=== PATIENT | male | born 1960 | race Two or more races ===

== ENCOUNTER 2017-12-23 12:58 | Inpatient (IN) | payer OTHER ==
--- NOTE | 2017-12-23 14:04 | PDOC ---
Attending Attestation - HPI HPI: 12/23/17 14:06 The patient is a 57-year-old male, with a past medical history of NIDDM, who presents to the ED with a week and a half of necrotic left great toe. The patient reports using a topical cream called "Renuka" that he bought at [employer]. On exam, patient states that his left leg is also swollen and he is experiencing pain with urination and pain over the kidneys. The patient denies any fever or chills. He denies having any other symptoms. Allergies: NKA <Beatriz Foreman - Last Filed: 12/23/17 16:31> - Resident Resident Name: Dequan Whittaker - ED Attending Attestation I have performed the following: I have examined & evaluated the patient, The case was reviewed & discussed with the resident, I agree w/resident's findings & plan, Exceptions are as noted - HPI HPI: no fever in house, no pain. also c/o dysuria, and right flank pain. no cough no cp no other complaints. 12/23/17 17:22 - Physicial Exam PE: 12/23/17 17:23 awake alert lungs clear bilaterally. heart rrr nomrg. abd soft nt no cva tenderness. left leg with erythema warmth to knee. left great toe with ulcer, necrosis, small exudate. skin discolored from purple . 2+ dp/ pt pulses bilaterally. - Medical Decision Making 12/23/17 17:24 57 yo male DM with left toe infection cellulitis. plan r/o osteo, r/o sepsis. also c/o dysuria. plan xray foot, cxr labs ua cultures. will treat with broad spectrum antibiotics. admit vasc surgery consult. xray with signs of osteo, will treat inpat abx.l <Cathy Alvares - Last Filed: 12/23/17 18:47> Heart Score/ECG Review #1 General ECG Interpretation: Sinus Rhythm, Normal Rate (80), Normal Intervals, No acute ischemic changes - ECG Intrepretation Rhythm: Regular Rhythm - [place]: Normal <Cathy Alvares - Last Filed: 12/23/17 18:47> Attestations - Attestations 12/23/17 14:09 Documentation prepared by Beatriz Foreman, acting as medical instructor for Cathy Alvares MD. <Beatriz Foreman - Last Filed: 12/23/17 16:31>
--- NOTE | 2017-12-23 14:22 | PDOC ---
History of Present Illness - General Chief Complaint: Wound Stated Complaint: URINARY PROBLEM Time Seen by Provider: 12/23/17 13:21 History Source: Patient Exam Limitations: No Limitations - History of Present Illness Initial Comments: 12/23/17 14:22 The patient is a 57M with a PMH of uncontrolled diabetes who presents to the ER with complaints of L great toe wound and leg swelling. The patient states that he noted some callous on the bottom of his L great toe 1.5 weeks ago. This then worsened up to the patient's current presentation. He also states that he's noticed swelling in his lower extremity when he tried putting his pants on. He tried putting "iqra" which is an antiseptic from [place]. He also notes that his toenail has come off. He denies any fever, chills, nausea, vomiting, CP, SOB. Past History - Past Medical History Allergies/Adverse Reactions: Allergies Allergy/AdvReac Type Severity Reaction Status Date / Time No Known Allergies Allergy Verified 12/23/17 13:00 Home Medications: Ambulatory Orders Glipizide 10 mg PO BID 12/23/17 Metformin HCl [Metformin HCl ER] 1,000 mg PO BID 12/23/17 COPD: No Diabetes: Yes (NIDDM) - Suicide/Smoking/Psychosocial Hx Smoking History: Never smoked Substance Use Type: None Review of Systems - Review of Systems Able to Perform ROS?: Yes Comments:: 12/23/17 14:48 GENERAL/CONSTITUTIONAL: No fever or chills. No weakness. HEAD, EYES, EARS, NOSE AND THROAT: No change in vision. No ear pain or discharge. No sore throat. CARDIOVASCULAR: No chest pain, palpitations, or lightheadedness. RESPIRATORY: No cough, wheezing, shortness of breath, or hemoptysis. GASTROINTESTINAL: No nausea, vomiting, diarrhea, constipation, or abdominal pain. GENITOURINARY: No dysuria, frequency, hematuria, or change in urination. MUSCULOSKELETAL: No joint or muscle swelling or pain. No neck or back pain. SKIN: Positive for L great toe lesion. No rash. NEUROLOGIC: No headache, numbness, tingling, weakness, loss of consciousness, or change in strength/sensation. ENDOCRINE: No increased thirst. No abnormal weight change. HEMATOLOGIC/LYMPHATIC: No anemia, easy bleeding, or history of blood clots. ALLERGIC/IMMUNOLOGIC: No hives or skin allergy. Is the patient limited Nauruan proficient: No *Physical Exam - Vital Signs Last Vital Signs Temp Pulse Resp BP Pulse Ox 99.1 F 96 H 20 130/76 99 12/23/17 13:00 12/23/17 13:00 12/23/17 13:00 12/23/17 13:00 12/23/17 13:00 - Physical Exam Comments: 12/23/17 14:49 GENERAL: Well developed, well nourished. Awake and alert. No acute distress. HEENT: Normocephalic, atraumatic. Hearing grossly normal. Moist mucous membranes. PERRLA, EOMI. No conjunctival pallor. Sclera are non-icteric. NECK: Supple. Full ROM. CARDIOVASCULAR: Regular rate and rhythm. No murmurs, rubs, or gallops. PULMONARY: No evidence of respiratory distress. Lungs clear to auscultation bilaterally. No wheezing, rales or rhonchi. ABDOMINAL: Soft. Non-tender. Non-distended. No rebound or guarding. GENITOURINARY: R CVA tenderness. MUSCULOSKELETAL: Normal range of motion at all joints. No bony deformities or tenderness. EXTREMITIES: Purple-dye covered great toe which is edematous with avulsion of the nail and skin around the nail. No bone noted. 1-2+ pitting edema up to L knee. No cyanosis. No clubbing. SKIN: Warm and dry. Normal capillary refill. No rashes. No jaundice. NEUROLOGICAL: Alert, awake, appropriate. Cranial nerves 2-12 intact. No deficits to light touch and temperature in face, upper extremities and lower extremities. No motor deficits in the in face, upper extremities and lower extremities. Normoreflexic in the upper and lower extremities. Normal speech. PSYCHIATRIC: Cooperative. Good eye contact. Appropriate mood and affect. ED Treatment Course - LABORATORY CBC & Chemistry Diagram: 12/23/17 15:50 12/23/17 15:50 - RADIOLOGY Radiology Studies Ordered: Category Date Time Status FOOT-LEFT [RAD] Stat Radiology 12/23/17 13:53 Taken DUPLEX VASCUL US-1 LEG [US] Stat Ultrasound 12/23/17 13:55 Ordered Medical Decision Making - Medical Decision Making 12/23/17 14:51 The patient is a 57M with a PMH of uncontrolled diabetes who presents to the ER with a necrotic L great toe. Will need to clean to evaluate. Will activate septic protocol as the patient has a low grade fever, is borderline tachycardic and tachypneic. Will send wound culture as well. Pending labs/imaging. Likely will need vascular surgery consultation in an inpatient setting. 12/23/17 16:09 XR indicates osteo. Will start on IV abx (vanc/zosyn) for osteo. Will call vascular surgery and admit pt. 12/23/17 16:51 Pending call back from hospitalist. I have discussed the patient with Dr. Fish who is aware of the patient and will see him in the inpatient setting. 12/23/17 17:06 I have endorsed the patient to Dr. Yan for admission under Dr. Peters. *DC/Admit/Observation/Transfer Diagnosis at time of Disposition: Osteomyelitis Qualifiers: Osteomyelitis type: unspecified type Osteomyelitis location: foot Laterality: left Qualified Code(s): M86.9 - Osteomyelitis, unspecified - Discharge Dispostion Condition at time of disposition: Stable Decision to Admit order: Yes - Referrals - Patient Instructions - Post Discharge Activity
[2017-12-23] MEDS ORDERED: SODIUM CHLORIDE 1,000 ML IV STA (14:34)
[2017-12-23 16:02] LABS: BASO % 1.1 % (0-2.0); EOS % 0.6 % (0-4.5); HEMATOCRIT 38.9 % (35.4-49); HEMOGLOBIN 12.9 GM/dL (11.7-16.9); LYMPH % 12.1 % (8-40); MCH 28.3 pg (25.7-33.7); MCHC 33.2 g/dl (32.0-35.9); MEAN CELL VOLUME 85.3 fl (80-96); MEAN PLT VOLUME 8.1 fl (7.5-11.1); MONO % 5.2 % (3.8-10.2); PLATELET COUNT 386 K/MM3 (134-434); RBC 4.57 M/mm3 (4.00-5.60); RDW 12.7 % (11.9-15.9); WHITE BLOOD COUNT 10.8 K/mm3 (4.0-10.0)
[2017-12-23] MEDS ORDERED: PIPERACILLIN/TAZOB 3.375 GM 3.375 GM in DEXTROSE 5%-WATER - 50 ML IVPB ONE (16:08)
[2017-12-23] MEDS ORDERED: VANCOMYCIN 1,000 MG in DEXTROSE 5%-WATER - 250 ML IVPB ONE (16:08)
[2017-12-23 16:41] LABS: INR 1.05 (0.82-1.09); PROTHROMBIN TIME (PATIENT) 11.9 SEC (9.7-13.0)
[2017-12-23] MEDS ORDERED: PIPERACILLIN/TAZOB 3.375 GM 3.375 GM/50 ML BAG IVPB ONE ×2 (16:51→23:00)
[2017-12-23] MEDS ORDERED: VANCOMYCIN 1 GRAM (PRE-DOCKED) 1,000 MG/250 ML BAG IVPB ONE (16:51)
--- NOTE | 2017-12-23 18:17 | PN ---
Teaching Attending Note Name of Resident: Marti Sotomayor ATTENDING PHYSICIAN STATEMENT I saw and evaluated the patient. I reviewed the resident's note and discussed the case with the resident. I agree with the resident's findings and plan as documented. SUBJECTIVE:57yo M with PMH non compliant DM presented to the ER with non healing ulcer on his L foot 1st toe for over 1 month. states he developed a blister on the tip of his toe from his boots which he used a needle to pick off. then noted his toenail was discolored and used a blade to remove the toe nail 4 days ago. he noted that his foot began to swell with lots of drainage from the toe. it was not healing so he came to the ER. states he does not have pain. He is not complaint with his diabetic meds and just take them when his friend can give him a few. denies CP, SOB, fever, chills, N/V/C/D OBJECTIVE: Last Vital Signs Temp Pulse Resp BP Pulse Ox 99.1 F 96 H 20 130/76 99 12/23/17 13:00 12/23/17 13:00 12/23/17 13:12/23/17 13:12/23/17 13:00 General NAD CV S1 S2 RRR no murmur/rub/gallop Lungs CTA B/L No wheezing/rales/rhonchi ABdomen soft NT/ND Extremities L foot 1+ pitting edema limited to the foot. 1st digit with toenail avulsed. active liquid drainage with bubbles. lateral aspect boggy. necrosis noted at tip of toe. pulse 2+. ASSESSMENT AND PLAN: 57yo M with PMH non compliant DM presented to the ER with non healing ulcer on his L foot 1st toe for over 1 month. In the ER he was found to have OM confirmed on XR 1. L foot 1st digit OM- medicine admission. XR confirming OM. will need surgical amputation. started on Vanco/Zosyn in the ER. check ESR/CRP. consult vascular surgery, podiatry and ID. case d/w podiatry will take pt to OR tomorrow if pt agreeable to surgery. F/U cx 2. DM- not complaint. check A1c. start iss, bgm. will likely require insulin on discharge but will need to determine if patient will be able to afford medication. frame straightener consult. counselled on importance of medication and diet compliance 3. DVT ppx- lovenox 4. spoke with patient in detail with water service dispatcher. Explained current plan and need for amputation. explained risks and benefit of surgical vs medical management. pt does not have insurance which will make medical management more difficult due to high cost of 6-8 weeks of IV antibiotics. pt will consider options overnight and discuss in more detail with podiatry in the AM
--- NOTE | 2017-12-23 18:45 | HP ---
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 Pt developed a callus from his work boots under the L great toe about a month and a half ago and eventually developed a blister from it. He burst the blister with a needle and started draining fluid from the L great toe. Pt admits to cutting his nails with a nail clipper about 20 days ago. 4 days ago, Pt used a lancet to cut around the base of the toe nail leaving a gaping wound that oozes pus and blood. He applied gentian aung on his own and came in to the ED today because of the non-healing wound. He denies fevers or chills. Pt has no pain on the toe. He admits to decreased pain sensation bilaterally. He had no prior hx of intermittent claudication. Pt admits to not being compliant on metformin 100mg and glipizide 10mg because he has no PCP and gets the medications from a friend. His last blood glucose yesterday was 300mg. No urinary symptoms, no chest pain or difficulty breathing, no cough. ER course was notable for: (1) Tachycardia-96, WBC- 10.8 (2) Xray- osteomyelitis of L great toe (3) iv Vancomycin 1000mg, iv Zosyn 3.375mg Recent Travel: PAST MEDICAL HISTORY: DM PAST SURGICAL HISTORY: Denies Social History: Smoking: Denies Alcohol:Denies Drugs: Denies Family History: Allergies No Known Allergies Allergy (Verified 12/23/17 13:00) HOME MEDICATIONS: Home Medications Medication Instructions Recorded Glipizide 10 mg PO BID 12/23/17 Metformin HCl [Metformin HCl ER] 1,000 mg PO BID 12/23/17 REVIEW OF SYSTEMS CONSTITUTIONAL: Absent: fever, chills, diaphoresis, generalized weakness, malaise, loss of appetite, weight change HEENT: Absent: rhinorrhea, nasal congestion, throat pain, throat swelling, difficulty swallowing, mouth swelling, ear pain, eye pain, visual changes CARDIOVASCULAR: Absent: chest pain, syncope, palpitations, irregular heart rate, lightheadedness , peripheral edema RESPIRATORY: Absent: cough, shortness of breath, dyspnea with exertion, orthopnea, wheezing, stridor, hemoptysis GASTROINTESTINAL: Absent: abdominal pain, abdominal distension, nausea, vomiting, diarrhea, constipation, melena, hematochezia GENITOURINARY: Absent: dysuria, frequency, urgency, hesitancy, hematuria, flank pain, genital pain MUSCULOSKELETAL: Absent: myalgia, arthralgia, joint swelling, back pain, neck pain SKIN: Absent: rash, itching, pallor HEMATOLOGIC/IMMUNOLOGIC: Absent: easy bleeding, easy bruising, lymphadenopathy, frequent infections ENDOCRINE: Absent: unexplained weight gain, unexplained weight loss, heat intolerance, cold intolerance NEUROLOGIC: Absent: headache, focal weakness or paresthesias, dizziness, unsteady gait, seizure, mental status changes, bladder or bowel incontinence PSYCHIATRIC: Absent: anxiety, depression, suicidal or homicidal ideation, hallucinations. PHYSICAL EXAMINATION Vital Signs - 24 hr 12/23/17 13:00 Temperature 99.1 F Pulse Rate 96 H Respiratory 20 Rate Blood Pressure 130/76 O2 Sat by Pulse 99 Oximetry (%) GENERAL: Awake, alert, and fully oriented, in no acute distress. HEAD: Normal with no signs of trauma. EYES: Pupils equal, round and reactive to light, extraocular movements intact EARS, NOSE, THROAT: Moist mucous membranes. NECK: Normal range of motion, supple LUNGS: Breath sounds equal, clear to auscultation bilaterally. No wheezes, and no crackles. HEART: Regular rate and rhythm, normal S1 and S2 ABDOMEN: Soft, nontender, not distended, normoactive bowel sounds MUSCULOSKELETAL: Normal range of motion at all joints. Hyperpigmentation L lower foot from ankle distally. L great toe with purplish color, avulsed nail, soft, with milkable pus on palpation below nail bed. Plantar surface of L great toe- firm, non fluctuant, no crepitus and non tender L great toe. Tinea pedis between toes bilaterally. UPPER EXTREMITIES: 2+ pulses, warm, well-perfused. LOWER EXTREMITIES: 2+ equal DP pulses bilaterally, warm, intact sensation to light touch bilaterally NEUROLOGICAL: Cranial nerves II-XII intact. Normal speech. Muscle strength 5/5 globally. CBC, BMP 12/23/17 15:50 Laboratory Results - last 24 hr 12/23/17 12/23/17 12/23/17 15:50 15:50 15:50 WBC 10.8 H RBC 4.57 Hgb 12.9 Hct 38.9 MCV 85.3 MCH 28.3 MCHC 33.2 RDW 12.7 Plt Count 386 MPV 8.1 Neutrophils % 81.0 Lymphocytes % 12.1 Monocytes % 5.2 Eosinophils % 0.6 Basophils % 1.1 Nucleated RBC % 0 PT with INR 11.90 INR 1.05 Sodium Cancelled Potassium Cancelled Chloride Cancelled Carbon Dioxide Cancelled Anion Gap Cancelled BUN Cancelled Creatinine Cancelled Creat Clearance w eGFR Cancelled Random Glucose Cancelled Lactic Acid Calcium Cancelled Total Bilirubin Cancelled AST Cancelled ALT Cancelled Alkaline Phosphatase Cancelled Total Protein Cancelled Albumin Cancelled Blood Type Antibody Screen 12/23/17 12/23/17 12/23/17 15:50 15:50 16:40 WBC RBC Hgb Hct MCV MCH MCHC RDW Plt Count MPV Neutrophils % Lymphocytes % Monocytes % Eosinophils % Basophils % Nucleated RBC % PT with INR INR Sodium Potassium Chloride Carbon Dioxide Anion Gap BUN Creatinine Creat Clearance w eGFR Random Glucose Lactic Acid Cancelled Calcium Total Bilirubin AST ALT Alkaline Phosphatase Total Protein Albumin Blood Type Cancelled O POSITIVE Antibody Screen Cancelled Negative ASSESSMENT/PLAN: Pt is 57 yo M with PMHx of DM non compliant on oral hypoglycemics, presenting with swelling of the L great toe and non healing wound for 4 days. L great toe osteomyelitis: Osteomyelitis on Xray Pt has wet gangrene with good pulses bilaterally Received vanco 1000mg in ED, continue Q12H iv Zosyn 3.375mgin ED, continue Q8H Consult wound/vascular- Dr Fish Consult podiatry- Dr Ybarra Consult ID- Dr Pike Tabjo-ann tylenol 650mg Q4h CRP, ESR CBC with diff in am CMP Pt/Inr Arterial duplex US For surgical evaluation and debridement / likely amputation Blood cultures Lactic acid DM : non compliant with hyperglycemia CMP HgbA1c BGM ACHS ISS ACHS Lipid profile Dietitian consult- Pt education UA- R/o microalbuminuria Will benefit from yearly ophthalmology visits at D/C Podiatry follow up at D/C Hold metformin Hold glipizide EKG FEN: No standing fluids at this time- follow lactic acid Monitor lytes Diabetic diet PPx: SQ heparin Dispo: Med surg Visit type - Emergency Visit Emergency Visit: Yes ED Registration Date: 12/23/17 Care time: The patient presented to the Emergency Department on the above date and was hospitalized for further evaluation of their emergent condition. - New Patient This patient is new to me today: Yes Date on this admission: 12/23/17 - Critical Care Critical Care patient: No Hospitalist Screening - Colonoscopy Questionnaire Colonoscopy Questionnaire: Colonoscopy Questionnaire - Patient: 50 - 75 years old and never had a screening colonoscopy: Unknown History of colon or rectal polyps, or CA: Unknown History of IBD, Crohn's disease or UC: Unknown History of abdominal radiation therapy as a child: Unknown - Relative: 1 with colon or rectal CA, or polyps at age 60 or younger: Unknown Colon or rectal CA diagnosed at age 45 or younger: Unknown Multiple relatives with colon or rectal CA: Unknown - Outcome: Screening Result: Negative Screen
[2017-12-23 19:36] LABS: ALBUMIN 2.7 g/dl (3.4-5.0); ALK PHOS 96 U/L (45-117); ANION GAP 5 (8-16); BILIRUBIN,TOTAL 0.3 mg/dL (0.2-1.0); BLOOD UREA NITROGEN 12 mg/dL (7-18); CALCIUM 8.2 mg/dL (8.5-10.1); CHLORIDE 101 mmol/L (98-107); CO2 27 mmol/L (21-32); CREATININE 0.8 mg/dL (0.7-1.3); GLUCOSE,RANDOM 305 mg/dL (74-106); POTASSIUM 4.3 mmol/L (3.5-5.1); SGOT/AST 6 U/L (15-37); SGPT/ALT 12 U/L (12-78); SODIUM 133 mmol/L (136-145); TOT PROT 6.8 g/dl (6.4-8.2)
[2017-12-23] MEDS ORDERED: INSULIN (NOVOLOG) ASPART 100 UNITS/ML 10ML VIAL ONE (22:59)
[2017-12-23] MEDS: INSULIN SLIDING SCALE (NOVOLOG) 1 VIAL SQ SCH (23:04)
[2017-12-23] MEDS: PIPERACILLIN/TAZOB 3.375 GM 3.375 GM in DEXTROSE 5%-WATER - 50 ML IVPB SCH (23:04)
[2017-12-24] MEDS ORDERED: HEPARIN NA (PORCINE) 5,000 UNITS/ML 1ML VIAL ONE (02:23)
[2017-12-24] MEDS: HEPARIN NA (PORCINE) 5,000 UNITS/ML 1ML VIAL SQ SCH ×3 (02:26→17:53)
[2017-12-24] MEDS: VANCOMYCIN 1 GM PREMIX - 1 GM/200 ML BAG IVPB SCH ×2 (03:10→09:29)
[2017-12-24 04:00] LABS: CHOLESTEROL 144 mg/dL (50-200); TRIGLYCERIDES 96 mg/dL (35-160)
[2017-12-24 04:01] LABS: HDL CHOLESTEROL 45 mg/dL (40-60)
[2017-12-24] MEDS ORDERED: PIPERACILLIN/TAZOBACTAM 3.375 GM VIAL IVPB ONE ×3 (05:06→21:36)
[2017-12-24] MEDS ORDERED: DEXTROSE 5%-WATER - 50 ML IVPB ONE ×3 (05:07→21:37)
[2017-12-24] MEDS: PIPERACILLIN/TAZOB 3.375 GM 3.375 GM in DEXTROSE 5%-WATER - 50 ML IVPB SCH ×2 (06:22→22:42)
[2017-12-24] MEDS: INSULIN SLIDING SCALE (NOVOLOG) 1 VIAL SQ SCH ×4 (06:23→22:42)
[2017-12-24 07:30] LABS: BASO % 0.5 % (0-2.0); EOS % 1.6 % (0-4.5); HEMATOCRIT 35.3 % (35.4-49); HEMOGLOBIN 11.9 GM/dL (11.7-16.9); LYMPH % 23.4 % (8-40); MCH 28.2 pg (25.7-33.7); MCHC 33.7 g/dl (32.0-35.9); MEAN CELL VOLUME 83.7 fl (80-96); MEAN PLT VOLUME 7.7 fl (7.5-11.1); MONO % 5.6 % (3.8-10.2); NEUT % 68.9 % (42.8-82.8); PLATELET COUNT 365 K/MM3 (134-434); RBC 4.22 M/mm3 (4.00-5.60); RDW 12.3 % (11.9-15.9); WHITE BLOOD COUNT 7.6 K/mm3 (4.0-10.0)
[2017-12-24 07:43] LABS: ALBUMIN 2.5 g/dl (3.4-5.0); ANION GAP 5 (8-16); CALCIUM 8.2 mg/dL (8.5-10.1); CHLORIDE 100 mmol/L (98-107); CO2 29 mmol/L (21-32); GLUCOSE,RANDOM 273 mg/dL (74-106); MAGNESIUM 1.9 mg/dL (1.8-2.4); SODIUM 134 mmol/L (136-145)
[2017-12-24 07:47] LABS: ALK PHOS 81 U/L (45-117); BILIRUBIN,TOTAL 0.4 mg/dL (0.2-1.0); CREATININE 0.7 mg/dL (0.7-1.3); PHOSPHOROUS 3.8 mg/dL (2.5-4.9); SGOT/AST 9 U/L (15-37); SGPT/ALT 12 U/L (12-78); TOT PROT 6.4 g/dl (6.4-8.2)
[2017-12-24 07:57] LABS: BLOOD UREA NITROGEN 10 mg/dL (7-18)
[2017-12-24] MEDS ORDERED: PT OWN MED DRAWER 7, Y5N ONE ×2 (08:08→19:07)
--- NOTE | 2017-12-24 09:27 | PN ---
Progress Note (short form) - Note Progress Note: Vascular Surgery Pt seen and examined. Left great toe infection. Going on for some time now. Palpable DP pulse bounding. Podiatry on case for toe amputation. Cleared from a vascular stand point. oRmero Fish DO
--- NOTE | 2017-12-24 09:36 | PN ---
Progress Note (short form) - Note Progress Note: ID Full noted dictated and discussed regarding need for amputation Microbiology Selected Entries 12/24/17 09:12 Temperature 98.3 F Pulse Rate 79 Respiratory 18 Rate Blood Pressure 141/96 Laboratory Tests 12/23/17 12/24/17 12/24/17 15:50 03:15 06:00 WBC 10.8 H RBC 4.57 ESR 79 H BUN 10 Creatinine 0.7 Gangrene with osteomyelitis Plan Zosyn for now Needs surgery no other way Naveen [place] Problem List - Problems (1) Osteomyelitis Code(s): M86.9 - OSTEOMYELITIS, UNSPECIFIED Qualifiers: Osteomyelitis type: unspecified type Osteomyelitis location: foot Laterality: left Qualified Code(s): M86.9 - Osteomyelitis, unspecified
--- NOTE | 2017-12-24 10:01 | CONSULT ---
Consult - text type - Consultation Consultation Note: Podiatry Consultation: Pleasant 57 year old poorly controlled NIDDM M presents with L great toe infection. Patient notes loosening of the toe nail, attempted to remove the nail, and subsequently developed an infection for about 1 week. Denies F/V/N/C/ SOB/CP currently. Afebrile, VSS. PMHx: NIDDM poorly controlled non-compliant Meds: noted ALL: NKMA JESSIE: L foot: pedal pulses palpable 2/4, TG warm-warmer, CFT brisk to all toes. There is hallux dorsal ulcer probing to bone at nail fold, (++) purulence, (+) edema, (+)erythema, no soft tissue crepitus. No tenderness to palpation. WBC: 7.6 ESR: 78 Blood Cx: pending Wound Cx: pending L foot XR: lytic changes distal phalanx suggestive of osteomyelitis Imp: 57 year old poorly controlled NIDDM M with L great toe DFI, osteomyelitis 1. IV abx 2. Glycemic control 3. Discussed treatment options with patient at length. Strongly recommend amputation for which patient is amenable. Plan for OR tonight for L great toe amputation. 4. NPO now. 5. Will follow. Elder Ybarra DPM
--- NOTE | 2017-12-24 10:01 | CONS ---
INFECTIOUS DISEASE CONSULTATION DATE OF CONSULTATION: DATE OF DICTATION: 12/24/2017 This is a 57-year-old , Tongan-speaking male, known noncompliant diabetic, who presents with gangrene of the left great toe. This has apparently been evolving over at least a month to 2 months and originally started as an infected blister. Subsequently, pus and blood started to drain from the wound, and the toe became darkened, prompting his admission to the emergency room now. He was not febrile on admission, and I am asked to see him for further evaluation and treatment. He was given vancomycin and Zosyn on admission. An x-ray shows osteomyelitis of the great toe. PHYSICAL EXAMINATION: General: Reveals a scoy-nctpiptbd-duklkzsrm male in no acute distress. Neck: Supple. Lungs: Clear. Heart: S1, S2. Regular rhythm. Abdomen: Soft, nontender. Extremities: No clubbing, cyanosis, or edema. Extremities reveal the toe completely necrotic with serosanguinous drainage. ASSESSMENT: Case discussed with Dr. Peters and house staff. Patient has no signs of sepsis and a normal white blood cell count. He has wet gangrene with underlying osteomyelitis noted by examination and x-ray. At this point, antibiotics are not going to be helpful here. He can be continued on Zosyn for at least today. He will be seen by Dr. Ybarra later this morning and clearly needs definitive surgery by way of amputation. LINA OSEGUERA M.D. [id number]
--- NOTE | 2017-12-24 12:36 | PN ---
Teaching Attending Note Name of Resident: Marti Sotomayor ATTENDING PHYSICIAN STATEMENT I saw and evaluated the patient. I reviewed the resident's note and discussed the case with the resident. I agree with the resident's findings and plan as documented. SUBJECTIVE:asymptomatic. denies CP, SOB, fever, chills, N/V/C/D or pain in the foot OBJECTIVE: Last Vital Signs Temp Pulse Resp BP Pulse Ox 98.3 F 79 18 141/96 98 12/24/17 09:12 12/24/17 09:12 12/24/17 09:12 12/24/17 09:12 12/24/17 09:00 General NAD Extremities L foot 1+ pitting edema limited to the foot. 1st digit with toenail avulsed. active liquid drainage with bubbles. lateral aspect boggy. necrosis noted at tip of toe. pulse 2+. ASSESSMENT AND PLAN: 57yo M with PMH non compliant DM presented to the ER with non healing ulcer on his L foot 1st toe for over 1 month. In the ER he was found to have OM confirmed on XR 1. L foot 1st digit OM-spoke with patient again in detail explaining risks and benefits of surgical vs medical management. pt now agreeable to amputation. will place NPO for surgery tonight. cont Zosyn. ID, podiatry, vascular on board. F/U cx 2. DM- A1c 14.2. explained to patient that he would benefit from insulin however since patient does not have insurance can not afford to pay for it. will place patient on oral medications at discharge. explained that this is liekly not enough for him however it is what he can afford at this time. senior energy analyst jose. 3. DVT ppx- lovenox, on hold for surgery
[2017-12-24 13:04] LABS: URINE APPEARANCE CLEAR; URINE BILIRUBIN NEGATIVE (<2.0 mg/dL); URINE BLOOD NEGATIVE (NEGATIVE); URINE COLOR LTYELLOW; URINE GLUCOSE (UA) 3+ (NEGATIVE); URINE KETONE NEGATIVE (NEGATIVE); URINE LEUK ESTERASE NEGATIVE (NEGATIVE); URINE NITRITE NEGATIVE (NEGATIVE); URINE PROTEIN NEGATIVE (NEGATIVE); URINE UROBILINOGEN NEGATIVE mg/dL (0.2-1.0)
--- NOTE | 2017-12-24 13:28 | EKG ---
Test Reason : Blood Pressure : / mmHG Vent. Rate : 087 BPM Atrial Rate : 087 BPM P-R Int : 164 ms QRS Dur : 112 ms QT Int : 340 ms P-R-T Axes : 039 -28 062 degrees QTc Int : 409 ms NORMAL SINUS RHYTHM POSSIBLE LEFT ATRIAL ENLARGEMENT INCOMPLETE RIGHT BUNDLE BRANCH BLOCK BORDERLINE ECG NO PREVIOUS ECGS AVAILABLE Confirmed by MOOKIE BENSON MD ([id number]) on 12/24/2017 1:27:54 PM Referred By: Confirmed By:MOOKIE BENSON MD
[2017-12-24] MEDS ORDERED: SODIUM CHLORIDE 1,000 ML IV SCH (13:30)
[2017-12-24] MEDS ORDERED: PIPERACILLIN/TAZOB 3.375 GM 3.375 GM in SODIUM CHLORIDE 100 ML IVPB ONE (14:30)
[2017-12-24 14:51] VITALS: BMI 27.8
[2017-12-24] MEDS ORDERED: ONDANSETRON 4 MG/2 ML VIAL IVPUSH PRN (15:44)
[2017-12-24] MEDS ORDERED: LACTATED RINGERS SOLUTION 1,000 ML IV SCH (15:45)
--- NOTE | 2017-12-24 15:51 | PN ---
Progress Note (short form) - Note Progress Note: Seen at bedside in NAD in holding room of operating room Pt seen earlier by Dr Ybarra who discussed and recommended for amputation left hallux Pt understands Procedure has been discussed and agrees to procedure Pt medically cleared Consent obtained and translated PT to OR for left great toe amputation
[2017-12-24] MEDS ORDERED: PROPOFOL 20 ML ONE (15:55)
[2017-12-24] MEDS ORDERED: MIDAZOLAM HCL 2 MG/2 ML SINGLE DOSE VIAL ONE (15:55)
[2017-12-24] MEDS ORDERED: LIDOCAINE HCL 2% (50ML VIAL) INF ONE ×2 (16:02)
--- NOTE | 2017-12-24 16:45 | OP ---
Operative Note - Note: Operative Date: 12/24/17 Pre-Operative Diagnosis: gangrene left hallux Operation: Amputation left hallux with biopsy 1st metatarsal left foot Post-Operative Diagnosis: Same as Pre-op Surgeon: Chacho Arreola Anesthesia: Local Specimens Removed: bone Drains & Tubes with Location: iodoform gauze
--- NOTE | 2017-12-24 17:33 | OP ---
DATE OF OPERATION: 12/24/2017 SURGEON: Chacho Yi DPM ANESTHESIA: IV sedation, local infiltrate of 2% Xylocaine plain. PREOPERATIVE DIAGNOSIS: Gangrene, left great toe. POSTOPERATIVE DIAGNOSIS: Gangrene, left great toe. PROCEDURE: Amputation of left great toe with proximal bone biopsy of the 1st metatarsal head. PROCEDURE DESCRIPTION: Patient identified, brought to the operating room, placed on the operating table in supine position. No tourniquet was utilized during the procedure. The left foot and leg were prepped and draped in the usual sterile manner using aseptic technique. Attention was then directed to the dorsal aspect of the 1st MPJ, where a tennis racquet type incision was made. The incision was deepened via sharp and blunt dissection, paying careful attention to all neurovascular structures, ligating and cauterizing all bleeders encountered. The incision was deepened. The capsule was incised in longitudinal fashion, reflected both medially and laterally. At this time, the great toe was disarticulated from the 1st MPJ and sent to Pathology for evaluation. The 1st metatarsal head was then resected using a sagittal saw, and a bone biopsy of the proximal 1st metatarsal was achieved. Any devitalized or necrotic tissue were removed at this time. The wound was then copiously flushed with sterile saline. Any devitalized or necrotic tissue noted were debrided at this time. A soft tissue culture was also performed at this time. The wound was then once again copiously flushed with sterile saline. The wound was then packed with 1/4-inch iodoform packing and then the skin was then loosely reapproximated with 3-0 nylon in simple suture fashion. The wound was then dressed with Xeroform, gauze, 4 x 4s, Turner, and Rene wrap. The patient was noted to the procedure and anesthesia well, left the operating room with vital signs stable and neurovascular status intact. CHACHO YI DPM [id number]
--- NOTE | 2017-12-24 21:17 | PN ---
Physical Exam: SUBJECTIVE: Patient seen and examined. No chills or fever. No increased pain. OBJECTIVE: Vital Signs Period Temp Pulse Resp BP Sys/Garner Pulse Ox Last 24 Hr 97.9 F-98.9 F 67-83 16-20 121-156/79-96 96-99 Vital Signs Temp 98.0 F 12/24/17 18:20 Pulse 83 12/24/17 18:20 Resp 18 12/24/17 20:32 BP 142/80 12/24/17 18:20 Pulse Ox 96 12/24/17 20:32 Intake & Output 12/23/17 12/24/17 12/24/17 23:59 11:59 23:59 Intake Total 50 50 1546 Output Total 30 Balance 50 50 1516 Weight 74.843 kg 76.113 kg 75.75 kg Intake: IV 1296 Normal Saline - 1,000 ml 996 @ 83 mls/hr IV ASDIR CELESTINO Rx#:[id number] IVPB 50 50 250 Output: Urine 0 Estimated Blood Loss 30 Other: Voiding Method Toilet Urinal Urinal Bowel Movement No Height 1.52 m 1.65 m 1.65 m Body Mass Index (BMI) 32.2 27.9 27.8 Weight Measurement Method Standing Scale Weight Measurement Method Estimated by Staff GENERAL: The patient is awake, alert, and fully oriented, in no acute distress. LUNGS: Breath sounds equal, clear to auscultation bilaterally HEART: Regular rate and rhythm, S1, S2 ABDOMEN: Soft, nontender, nondistended, normoactive bowel sounds EXTREMITIES: 2+ DP pulses bilaterally, warm, well-perfused. Necrotic L great toe. Pus expressed from base of amputated nail bed, non tender. Purplish color over toe. NEUROLOGICAL: Cranial nerves II through XII grossly intact. Normal speech, Normal tone and muscle strength 5/5 globally CBC, BMP 12/24/17 06:00 12/24/17 06:00 Laboratory Results - last 24 hr 12/23/17 12/24/17 12/24/17 22:55 03:15 03:15 WBC RBC Hgb Hct MCV MCH MCHC RDW Plt Count MPV Neutrophils % Lymphocytes % Monocytes % Eosinophils % Basophils % Nucleated RBC % ESR Sodium Potassium Chloride Carbon Dioxide Anion Gap BUN Creatinine Creat Clearance w eGFR POC Glucometer [phone] Random Glucose Hemoglobin A1c % 14.2 H Calcium Phosphorus Magnesium Total Bilirubin AST ALT Alkaline Phosphatase C-Reactive Protein 1.2 H Total Protein Albumin Triglycerides Cholesterol Total LDL Cholesterol HDL Cholesterol Urine Color Urine Appearance Urine pH Ur Specific Wilkinson Urine Protein Urine Glucose (UA) Urine Ketones Urine Blood Urine Nitrite Urine Bilirubin Urine Urobilinogen Ur Leukocyte Esterase 12/24/17 12/24/17 12/24/17 03:15 03:15 06:00 WBC 7.6 RBC 4.22 Hgb 11.9 Hct 35.3 L MCV 83.7 MCH 28.2 MCHC 33.7 RDW 12.3 Plt Count 365 MPV 7.7 Neutrophils % 68.9 Lymphocytes % 23.4 D Monocytes % 5.6 Eosinophils % 1.6 D Basophils % 0.5 Nucleated RBC % 0 ESR 79 H Sodium Potassium Chloride Carbon Dioxide Anion Gap BUN Creatinine Creat Clearance w eGFR POC Glucometer Random Glucose Hemoglobin A1c % Calcium Phosphorus Magnesium Total Bilirubin AST ALT Alkaline Phosphatase C-Reactive Protein Total Protein Albumin Triglycerides 96 Cholesterol 144 Total LDL Cholesterol 94 HDL Cholesterol 45 Urine Color Urine Appearance Urine pH Ur Specific Wilkinson Urine Protein Urine Glucose (UA) Urine Ketones Urine Blood Urine Nitrite Urine Bilirubin Urine Urobilinogen Ur Leukocyte Esterase 12/24/17 12/24/17 12/24/17 06:00 06:23 11:30 WBC RBC Hgb Hct MCV MCH MCHC RDW Plt Count MPV Neutrophils % Lymphocytes % Monocytes % Eosinophils % Basophils % Nucleated RBC % ESR Sodium 134 L Potassium 4.0 Chloride 100 Carbon Dioxide 29 Anion Gap 5 L BUN 10 Creatinine 0.7 Creat Clearance w eGFR > 60 POC Glucometer 269 Random Glucose 273 H Hemoglobin A1c % Calcium 8.2 L Phosphorus 3.8 Magnesium 1.9 Total Bilirubin 0.4 D AST 9 L D ALT 12 Alkaline Phosphatase 81 C-Reactive Protein Total Protein 6.4 Albumin 2.5 L Triglycerides Cholesterol Total LDL Cholesterol HDL Cholesterol Urine Color Ltyellow Urine Appearance Clear Urine pH 6.0 Ur Specific Wilkinson 1.012 Urine Protein Negative Urine Glucose (UA) 3+ H Urine Ketones Negative Urine Blood Negative Urine Nitrite Negative Urine Bilirubin Negative Urine Urobilinogen Negative Ur Leukocyte Esterase Negative 12/24/17 11:56 WBC RBC Hgb Hct MCV MCH MCHC RDW Plt Count MPV Neutrophils % Lymphocytes % Monocytes % Eosinophils % Basophils % Nucleated RBC % ESR Sodium Potassium Chloride Carbon Dioxide Anion Gap BUN Creatinine Creat Clearance w eGFR POC Glucometer 261 Random Glucose Hemoglobin A1c % Calcium Phosphorus Magnesium Total Bilirubin AST ALT Alkaline Phosphatase C-Reactive Protein Total Protein Albumin Triglycerides Cholesterol Total LDL Cholesterol HDL Cholesterol Urine Color Urine Appearance Urine pH Ur Specific Wilkinson Urine Protein Urine Glucose (UA) Urine Ketones Urine Blood Urine Nitrite Urine Bilirubin Urine Urobilinogen Ur Leukocyte Esterase Active Medications Generic Name Dose Route Start Last Admin Trade Name Freq PRN Reason Stop Dose Admin Acetaminophen 650 mg 12/23/17 19:24 Tylenol - PO Q4H PRN PAIN LEVEL 1-5 Fentanyl 25 mcg 12/24/17 15:44 Sublimaze Injection - IVPUSH [id number] PRN PAIN-PACU ORDER X 4 DOSES ONLY Heparin Sodium (Porcine) 5,000 unit 12/24/17 02:00 12/24/17 17:53 Heparin - SQ Not Given Q8H-IV CELESTINO Vancomycin HCl 1,000 mg/ 250 mls @ 166.667 mls/hr 12/24/17 22:00 Dextrose IVPB BID CELESTINO Protocol Piperacillin Sod/Tazobactam 50 mls @ 100 mls/hr 12/24/17 21:15 Sod 3.375 gm/ Dextrose IVPB Q8H-IV CELESTINO Protocol Sodium Chloride 1,000 mls @ 83 mls/hr 12/24/17 13:30 12/24/17 13:44 Normal Saline - IV 83 mls/hr ASDIR CELESTINO Administration Lactated Ringer's 1,000 mls @ 75 mls/hr 12/24/17 15:45 12/24/17 17:53 Lactated Ringers Solution IV Not Given ASDIR CELESTINO Insulin Aspart 1 vial 12/23/17 22:00 12/24/17 16:33 Novolog Vial Sliding Scale - SQ Not Given ACHS [facility] Protocol Ondansetron HCl 4 mg 12/24/17 15:44 Zofran Injection IVPUSH Q6H PRN NAUSEA AND/OR VOMITING Likely Osteomyelitis on Xray ASSESSMENT/PLAN: Pt is 57 yo M with PMHx of DM non compliant on oral hypoglycemics, presenting with swelling of the L great toe and non healing wound for 4 days. L great toe ulcer: Pt has wet gangrene with good pulses bilaterally Continue vanco 1000mg Cont iv Zosyn 3.375mg Consult wound/vascular- Dr Fish- appreciate recs, cleared for L toe amputation Consult podiatry- Dr Ybarra- appreciate recs, for L toe amputation today , NPO Consult ID- Dr Pike- appreciate recs Tabs tylenol 650mg Q4h CRP, ESR CBC with diff in am CMP Pt/Inr Arterial duplex US Blood cultures Lactic acid DM : non compliant with hyperglycemia CMP [id number] BGM ACHS ISS ACHS Lipid profile-wnl Dietitian consult- Pt education UA- R/o microalbuminuria Will benefit from yearly ophthalmology visits at D/C Podiatry follow up at D/C Hold metformin_pt may not be able to afford insulin as an outpatient and so may be discharged on oral medications as pt fallontlalondra has no insurance Hold glipizide- as above EKG lactic acid- normal FEN: No standing fluids at this time Monitor lytes Diabetic diet PPx: SQ heparin Dispo: Med surg Visit type - Emergency Visit Emergency Visit: Yes ED Registration Date: 12/23/17 Care time: The patient presented to the Emergency Department on the above date and was hospitalized for further evaluation of their emergent condition. - New Patient This patient is new to me today: No - Critical Care Critical Care patient: No - Discharge Referral Referred to [facility] Med P.C.: No
[2017-12-24] MEDS: VANCOMYCIN 1,000 MG in DEXTROSE 5%-WATER - 250 ML IVPB SCH (22:42)
[2017-12-24] MEDS ORDERED: oxyCODONE HCL 5 MG TABLET PO ONE (22:54)
[2017-12-24] MEDS: ACETAMINOPHEN 325 MG TABLET (FP) PO PRN (22:54)
[2017-12-25] MEDS ORDERED: PIPERACILLIN/TAZOBACTAM 3.375 GM VIAL IVPB ONE ×3 (01:46→17:20)
[2017-12-25] MEDS ORDERED: DEXTROSE 5%-WATER - 50 ML IVPB ONE ×3 (01:46→17:20)
[2017-12-25] MEDS: PIPERACILLIN/TAZOB 3.375 GM 3.375 GM in DEXTROSE 5%-WATER - 50 ML IVPB SCH ×3 (01:52→17:28)
[2017-12-25] MEDS: HEPARIN NA (PORCINE) 5,000 UNITS/ML 1ML VIAL SQ SCH ×3 (01:53→17:28)
[2017-12-25] MEDS: ACETAMINOPHEN 325 MG TABLET (FP) PO PRN ×2 (03:39→14:29)
[2017-12-25] MEDS: INSULIN SLIDING SCALE (NOVOLOG) 1 VIAL SQ SCH ×4 (06:29→21:51)
[2017-12-25] MEDS ORDERED: oxyCODONE HCL 5 MG TABLET PO ONE (06:30)
[2017-12-25] MEDS ORDERED: INSULIN (NOVOLOG) ASPART 100 UNITS/ML 10ML VIAL ONE (06:56)
[2017-12-25 07:44] LABS: BASO % 0.4 % (0-2.0); EOS % 1.6 % (0-4.5); HEMATOCRIT 35.7 % (35.4-49); LYMPH % 16.4 % (8-40); MCH 28.4 pg (25.7-33.7); MCHC 33.7 g/dl (32.0-35.9); MEAN CELL VOLUME 84.2 fl (80-96); MEAN PLT VOLUME 7.7 fl (7.5-11.1); MONO % 6.2 % (3.8-10.2); NEUT % 75.4 % (42.8-82.8); PLATELET COUNT 375 K/MM3 (134-434); RBC 4.24 M/mm3 (4.00-5.60); RDW 12.5 % (11.9-15.9); WHITE BLOOD COUNT 10.3 K/mm3 (4.0-10.0)
--- NOTE | 2017-12-25 08:22 | PN ---
Progress Note (short form) - Note Progress Note: Post op day#1.S/P Left great toe amputation under MAC uneventful.Patient stable.No any anesthesia related problem.Patient DC from the anesthesia care.
[2017-12-25 08:31] LABS: ALBUMIN 2.5 g/dl (3.4-5.0); ANION GAP 5 (8-16); BLOOD UREA NITROGEN 11 mg/dL (7-18); CHLORIDE 102 mmol/L (98-107); CO2 28 mmol/L (21-32); GLUCOSE,RANDOM 181 mg/dL (74-106); POTASSIUM 4.4 mmol/L (3.5-5.1); SODIUM 135 mmol/L (136-145)
--- NOTE | 2017-12-25 08:34 | PN ---
Progress Note (short form) - Note Progress Note: ID Day 1 post op amputation great toe wiath biopsy Doing well Selected Entries 12/25/17 05:32 Temperature 98.3 F Pulse Rate 72 Respiratory 18 Rate Blood Pressure 120/69 Post op dressing Post amputation metatarsal biopsy Plan Continue Zosyn pending biopsy ? ferry terminal agent antibiotic vs not Naveen [place] Problem List - Problems (1) Osteomyelitis Code(s): M86.9 - OSTEOMYELITIS, UNSPECIFIED Qualifiers: Osteomyelitis type: unspecified type Osteomyelitis location: foot Laterality: left Qualified Code(s): M86.9 - Osteomyelitis, unspecified
[2017-12-25 08:45] LABS: ALK PHOS 75 U/L (45-117); BILIRUBIN,TOTAL 0.4 mg/dL (0.2-1.0); CREATININE 0.6 mg/dL (0.7-1.3); MAGNESIUM 1.9 mg/dL (1.8-2.4); PHOSPHOROUS 4.2 mg/dL (2.5-4.9); SGOT/AST 9 U/L (15-37); SGPT/ALT 12 U/L (12-78); TOT PROT 6.4 g/dl (6.4-8.2)
--- NOTE | 2017-12-25 09:58 | PN ---
Progress Note (short form) - Note Progress Note: POD#1 s/p left hallux amputation with proximal 1st metatarsal bone biopsy Pt doing well with minimal discomfort Dressing CDI Denies CP SOB or calf pain Wound well coapted No signs of purulence or cellulitis Packing intact Impression: Satisfactory healing s/p amputation Plan: Packing pulled Sterile dressing change Discussed with medicine , cultures and bone biopsy pending
[2017-12-25] MEDS: VANCOMYCIN 1,000 MG in DEXTROSE 5%-WATER - 250 ML IVPB SCH ×2 (12:55→21:52)
[2017-12-25] MEDS ORDERED: oxyCODONE HCL 5 MG TABLET PO PRN ×2 (14:19→16:00)
--- NOTE | 2017-12-25 14:23 | PN ---
Teaching Attending Note Name of Resident: Marti Sotomayor ATTENDING PHYSICIAN STATEMENT I saw and evaluated the patient. I reviewed the resident's note and discussed the case with the resident. I agree with the resident's findings and plan as documented. SUBJECTIVE: some pain in the foot. denies Cp, SOB, fever, chills, N/V/C/D OBJECTIVE: Last Vital Signs Temp Pulse Resp BP Pulse Ox 99.1 F 84 18 152/87 97 12/25/17 09:30 12/25/17 09:30 12/25/17 09:30 12/25/17 09:30 12/25/17 09:00 General NAD Extremities L foot with amputation of the 1st digit. no active drainage. sutures in place. ASSESSMENT AND PLAN: 57yo M with PMH non compliant DM presented to the ER with non healing ulcer on his L foot 1st toe for over 1 month. In the ER he was found to have OM confirmed on XR 1. L foot 1st digit OM-s/p 1st metatarsal amputation 12/24. will wait for bone bx results to determine if proximal bone margins are clean. cont vanco/zosyn day 3. ID, podiatry, vascular on board. F/U cx/ pain control. explained to pt he needs to request pain medications. 2. DM- A1c 14.2. will cont iwth iss and bgm. plan to start oral hypoglycemics tomorrow. and titrate to optimize as much as possible. 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 3. elevated BP- may be due to pain. will monitor and if persists start medications 4. DVT ppx- lovenox,
[2017-12-25] MEDS: DOCUSATE SODIUM 100 MG CAPSULE (FP) PO SCH (14:29)
[2017-12-25] MEDS ORDERED: ACETAMINOPHEN 325 MG TABLET (FP) PO PRN (16:00)
--- NOTE | 2017-12-25 18:35 | PN ---
Physical Exam: SUBJECTIVE: Patient seen and examined. Got the amputation of his L first toe yesterday. No fever or SOB. Did not request pain medication overnight. C/o of cough. OBJECTIVE: Vital Signs Period Temp Pulse Resp BP Sys/Garner Pulse Ox Last 24 Hr 97.6 F-99.2 F 72-91 18-20 115-152/69-89 96-97 Vital Signs Temp 99.2 F 12/25/17 20:19 Pulse 93 H 12/25/17 20:19 Resp 18 12/25/17 20:19 BP 162/86 12/25/17 20:19 Pulse Ox 98 12/25/17 20:25 Intake & Output 12/24/17 12/25/17 12/25/17 23:59 11:59 23:59 Intake Total 1546 1600 1527 Output Total 1230 1350 1600 Balance 316 250 -73 Weight 75.75 kg Intake: IV 1296 800 747 Normal Saline - 1,000 ml 996 800 747 @ 83 mls/hr IV ASDIR CELESTINO Rx#:[id number] IVPB 250 350 300 Oral 450 480 Output: Urine 1200 1350 1600 Void 1200 1350 1600 Estimated Blood Loss 30 Other: Voiding Method Urinal Urinal Urinal Bowel Movement No No Height 1.65 m Body Mass Index (BMI) 27.8 Intake & Output 12/22/17 12/23/17 12/24/17 12/25/17 23:59 23:59 23:59 23:59 Intake Total 50 1596 3127 Output Total 1230 2950 Balance 50 366 177 Weight 74.843 kg 75.75 kg GENERAL: The patient is awake, alert, and fully oriented, in no acute respiratory distress. LUNGS: Breath sounds equal, clear to auscultation bilaterally HEART: Regular rate and rhythm, S1, S2 without murmur ABDOMEN: Soft, nontender, nondistended, normoactive bowel sounds EXTREMITIES: 2+ pulses, warm bilaterally.Dressing clean dry and intact. Dressing taken off by support assistant revealed amputated L 1st toe with distal metatarsal, stitiches in place. Not bleeding. NEUROLOGICAL: AAOx3. Normal speech, gait not observed Laboratory Results - last 24 hr 12/24/17 12/24/17 12/25/17 17:02 22:41 05:58 WBC RBC Hgb Hct MCV MCH MCHC RDW Plt Count MPV Neutrophils % Lymphocytes % Monocytes % Eosinophils % Basophils % Nucleated RBC % Sodium Potassium Chloride Carbon Dioxide Anion Gap BUN Creatinine Creat Clearance w eGFR POC Glucometer 211 277 165 Random Glucose Calcium Phosphorus Magnesium Total Bilirubin AST ALT Alkaline Phosphatase Total Protein Albumin Random Vancomycin 12/25/17 12/25/17 12/25/17 06:30 06:45 10:39 WBC 10.3 H D RBC 4.24 Hgb 12.0 Hct 35.7 MCV 84.2 MCH 28.4 MCHC 33.7 RDW 12.5 Plt Count 375 MPV 7.7 Neutrophils % 75.4 Lymphocytes % 16.4 D Monocytes % 6.2 Eosinophils % 1.6 Basophils % 0.4 Nucleated RBC % 0 Sodium 135 L Potassium 4.4 Chloride 102 Carbon Dioxide 28 Anion Gap 5 L BUN 11 Creatinine 0.6 L Creat Clearance w eGFR > 60 POC Glucometer Random Glucose 181 H D Calcium 8.0 L Phosphorus 4.2 Magnesium 1.9 Total Bilirubin 0.4 AST 9 L ALT 12 Alkaline Phosphatase 75 Total Protein 6.4 Albumin 2.5 L Random Vancomycin 7.743 12/25/17 12/25/17 11:59 16:54 WBC RBC Hgb Hct MCV MCH MCHC RDW Plt Count MPV Neutrophils % Lymphocytes % Monocytes % Eosinophils % Basophils % Nucleated RBC % Sodium Potassium Chloride Carbon Dioxide Anion Gap BUN Creatinine Creat Clearance w eGFR POC Glucometer 232 239 Random Glucose Calcium Phosphorus Magnesium Total Bilirubin AST ALT Alkaline Phosphatase Total Protein Albumin Random Vancomycin Active Medications Generic Name Dose Route Start Last Admin Trade Name Freq PRN Reason Stop Dose Admin Acetaminophen 650 mg 12/23/17 19:24 12/25/17 03:39 Tylenol - PO 650 mg Q4H PRN Administration PAIN LEVEL 1-5 Acetaminophen 325 mg 12/25/17 14:19 12/25/17 14:29 Tylenol - PO 12/28/17 14:18 325 mg Q4H PRN Administration PAIN SCALE 4-6 Acetaminophen 325 mg 12/25/17 16:00 Tylenol - PO 12/28/17 15:59 Q4H PRN PAIN LEVEL 4-6 WITH OXYCODONE Docusate Sodium 100 mg 12/25/17 14:00 Colace - PO DAILY CELESTINO Fentanyl 25 mcg 12/24/17 15:44 Sublimaze Injection - IVPUSH [id number] PRN PAIN-PACU ORDER X 4 DOSES ONLY Surinderfenesin 10 ml 12/25/17 14:01 Robitussin Dm - PO Q4H PRN COUGH Heparin Sodium (Porcine) 5,000 unit 12/24/17 02:00 12/25/17 17:28 Heparin - SQ 5,000 unit Q8H-IV CELESTINO Administration Vancomycin HCl 1,000 mg/ 250 mls @ 166.667 mls/hr 12/24/17 22:00 12/25/17 12: 55 Dextrose IVPB 166.667 mls/hr BID CELESTINO Administration Protocol Piperacillin Sod/Tazobactam 50 mls @ 100 mls/hr 12/24/17 21:15 12/25/17 17:28 Sod 3.375 gm/ Dextrose IVPB 100 mls/hr Q8H-IV CELESTINO Administration Protocol Insulin Aspart 1 vial 12/23/17 22:00 12/25/17 17:28 Novolog Vial Sliding Scale - SQ 4 units ACHS CELESTINO Administration Protocol Ondansetron HCl 4 mg 12/24/17 15:44 Zofran Injection IVPUSH Q6H PRN NAUSEA AND/OR VOMITING Oxycodone HCl 5 mg 12/25/17 14:19 12/25/17 14:29 Roxicodone - PO 5 mg Q4H PRN Administration PAIN SCALE 4-6 Oxycodone HCl 5 mg 12/25/17 16:00 Roxicodone - PO Q4H PRN PAIN LEVEL 4-6 ASSESSMENT/PLAN: Pt is 57 yo M with PMHx of DM non compliant on oral hypoglycemics, presenting with swelling of the L great toe and non healing wound for 4 days. L great toe ulcer/osteomyelitis: Now s/p great toe amputation (12/24/17) Continue vanco 1000mg Cont iv Zosyn 3.375mg Consult wound/vascular- Dr Fish- appreciate recs Consult podiatry- Dr Ybarra- appreciate recs Consult ID- Dr Pike- appreciate recs Percocet for pain Blood cultures- pending Pt may offload with surgical boot putting pressure on heel Incentive spirometry Pending biopsy results for margins DM : Sugars in the 100s on sliding scale [id number] BGM ACHS ISS ACHS Lipid profile-wnl Dietitian consult- Pt education UA- R/o microalbuminuria Will benefit from yearly ophthalmology visits at D/C Podiatry follow up at D/C Hold metformin_pt may not be able to afford insulin as an outpatient and so may be discharged on oral medications as pt fallontlalondra has no insurance Hold glipizide- as above Will start trials of oral hypoglycemics likely tomorrow to assess for dose adjustment as in patient prior to discharge HTN: Blood pressure running high May be due to pain Percocet prescribed Will monitor for now May be a candidate for antihypertensives Cough: Noted postop Maybe related to anesthesia Incentive spirometry Robitussin D Monitor FEN: stop iv fluids when pt tolerating orally Monitor lytes Diabetic diet PPx: SQ heparin Dispo: Med surg Visit type - Emergency Visit Emergency Visit: Yes ED Registration Date: 12/23/17 Care time: The patient presented to the Emergency Department on the above date and was hospitalized for further evaluation of their emergent condition. - New Patient This patient is new to me today: No - Critical Care Critical Care patient: No - Discharge Referral Referred to [facility] Med P.C.: No
[2017-12-25] MEDS ORDERED: PT OWN MED DRAWER 7, Y5N ONE (21:16)
[2017-12-26] MEDS ORDERED: DEXTROSE 5%-WATER - 50 ML IVPB ONE ×3 (01:21→17:36)
[2017-12-26] MEDS ORDERED: PIPERACILLIN/TAZOBACTAM 3.375 GM VIAL IVPB ONE ×3 (01:21→17:36)
[2017-12-26] MEDS: HEPARIN NA (PORCINE) 5,000 UNITS/ML 1ML VIAL SQ SCH ×3 (01:40→17:47)
[2017-12-26] MEDS: guaiFENesin/D-METHORPHAN HB 10 ML UNIT-DOSE CUPS PO PRN ×2 (01:40→22:18)
[2017-12-26] MEDS: PIPERACILLIN/TAZOB 3.375 GM 3.375 GM in DEXTROSE 5%-WATER - 50 ML IVPB SCH ×3 (01:41→17:48)
[2017-12-26] MEDS: ACETAMINOPHEN 325 MG TABLET (FP) PO PRN (03:59)
[2017-12-26] MEDS ORDERED: diphenhydrAMINE HCL 25 MG CAPSULE (FP) PO ONE (05:58)
[2017-12-26] MEDS: INSULIN SLIDING SCALE (NOVOLOG) 1 VIAL SQ SCH ×4 (06:12→21:51)
--- NOTE | 2017-12-26 06:43 | PN ---
Progress Note (short form) - Note Progress Note: Podiatry F/U: Seen/evaluated at bedside NAD. S/p L great toe amputation for osteomyelitis. Afebrile, VSS. JESSIE: L foot: dressing C/D/I. Sutures well coapted, no dehiscence, no purulent drainage, no fluctuance, mild swelling, no periwound erythema, no ascending cellulitis, no signs of active infection. WBC: 10.3 OR Cx: mixed orgs, pending OR Path: pending Imp: 57 year old DM M s/p L great toe amputation for osteomyelitis 1. IV abx per ID 2. DSD L foot 3. Partial WB L Heel with surgical shoe 4. F/U OR cultures/path 5. Will follow Elder Ybarra DPM
[2017-12-26] MEDS ORDERED: INSULIN (NOVOLOG) ASPART 100 UNITS/ML 10ML VIAL ONE ×2 (06:47→20:00)
[2017-12-26 07:15] LABS: BASO % 1.1 % (0-2.0); EOS % 0.9 % (0-4.5); HEMOGLOBIN 11.5 GM/dL (11.7-16.9); LYMPH % 21.9 % (8-40); MCH 28.5 pg (25.7-33.7); MCHC 33.8 g/dl (32.0-35.9); MEAN CELL VOLUME 84.3 fl (80-96); MEAN PLT VOLUME 8.1 fl (7.5-11.1); MONO % 7.7 % (3.8-10.2); NEUT % 68.4 % (42.8-82.8); PLATELET COUNT 348 K/MM3 (134-434); RBC 4.04 M/mm3 (4.00-5.60); RDW 12.5 % (11.9-15.9); WHITE BLOOD COUNT 8.6 K/mm3 (4.0-10.0)
[2017-12-26 07:56] LABS: CHLORIDE 100 mmol/L (98-107); POTASSIUM 4.2 mmol/L (3.5-5.1); SODIUM 134 mmol/L (136-145)
[2017-12-26 08:18] LABS: ALBUMIN 2.5 g/dl (3.4-5.0); ALK PHOS 74 U/L (45-117); ANION GAP 7 (8-16); BILIRUBIN,TOTAL 0.4 mg/dL (0.2-1.0); BLOOD UREA NITROGEN 9 mg/dL (7-18); CALCIUM 7.8 mg/dL (8.5-10.1); CO2 27 mmol/L (21-32); CREATININE 0.6 mg/dL (0.7-1.3); GLUCOSE,RANDOM 200 mg/dL (74-106); MAGNESIUM 1.9 mg/dL (1.8-2.4); SGOT/AST 8 U/L (15-37); SGPT/ALT 10 U/L (12-78); TOT PROT 6.5 g/dl (6.4-8.2)
--- NOTE | 2017-12-26 09:41 | PN ---
Progress Note (short form) - Note Progress Note: no complaints. states pain is controlled iwth pain medication. denies CP, SOB, fever, chills, N/V/C/D Current Medications Generic Name Dose Route Start Last Admin Trade Name Freq PRN Reason Stop Dose Admin Acetaminophen 650 mg 12/23/17 19:24 12/25/17 03:39 Tylenol - PO 650 mg Q4H PRN Administration PAIN LEVEL 1-5 Acetaminophen 325 mg 12/25/17 14:19 12/26/17 03:59 Tylenol - PO 12/28/17 14:18 325 mg Q4H PRN Administration PAIN SCALE 4-6 Acetaminophen 325 mg 12/25/17 16:00 Tylenol - PO 12/28/17 15:59 Q4H PRN PAIN LEVEL 4-6 WITH OXYCODONE Docusate Sodium 100 mg 12/25/17 14:00 Colace - PO DAILY CELESTINO Fentanyl 25 mcg 12/24/17 15:44 Sublimaze Injection - IVPUSH [id number] PRN PAIN-PACU ORDER X 4 DOSES ONLY Guaifenesin 10 ml 12/25/17 14:01 12/26/17 01:40 Robitussin Dm - PO 10 ml Q4H PRN Administration COUGH Heparin Sodium (Porcine) 5,000 unit 12/24/17 02:00 12/26/17 01:40 Heparin - SQ 5,000 unit Q8H-IV CELESTINO Administration Vancomycin HCl 1,000 mg/ 250 mls @ 166.667 mls/hr 12/24/17 22:00 12/25/17 21: 52 Dextrose IVPB 166.667 mls/hr BID CELESTINO Administration Protocol Piperacillin Sod/Tazobactam 50 mls @ 100 mls/hr 12/24/17 21:15 12/26/17 01:41 Sod 3.375 gm/ Dextrose IVPB 100 mls/hr Q8H-IV CELESTINO Administration Protocol Insulin Aspart 1 vial 12/23/17 22:00 12/26/17 06:12 Novolog Vial Sliding Scale - SQ 4 units ACHS CELESTINO Administration Protocol Ondansetron HCl 4 mg 12/24/17 15:44 Zofran Injection IVPUSH Q6H PRN NAUSEA AND/OR VOMITING Oxycodone HCl 5 mg 12/25/17 16:00 12/26/17 03:58 Roxicodone - PO 5 mg Q4H PRN Administration PAIN LEVEL 4-6 Last Vital Signs Temp Pulse Resp BP Pulse Ox 98.3 F 80 18 123/78 98 12/26/17 05:45 12/26/17 05:45 12/26/17 05:45 12/26/17 05:45 12/25/17 20:25 General NAD Extremities L foot wrapped. dressing C/D/I CBCD WBC 8.6 K/mm3 (4.0-10.0) 12/26/17 06:15 RBC 4.04 M/mm3 (4.00-5.60) 12/26/17 06:15 Hgb 11.5 GM/dL (11.7-16.9) L 12/26/17 06:15 Hct 34.0 % (35.4-49) L 12/26/17 06:15 MCV 84.3 fl (80-96) 12/26/17 06:15 MCHC 33.8 g/dl (32.0-35.9) 12/26/17 06:15 RDW 12.5 % (11.9-15.9) 12/26/17 06:15 Plt Count 348 K/MM3 (134-434) 12/26/17 06:15 MPV 8.1 fl (7.5-11.1) 12/26/17 06:15 CMP Sodium 134 mmol/L (136-145) L 12/26/17 06:15 Potassium 4.2 mmol/L (3.5-5.1) 12/26/17 06:15 Chloride 100 mmol/L (98-107) 12/26/17 06:15 Carbon Dioxide 27 mmol/L (21-32) 12/26/17 06:15 Anion Gap 7 (8-16) L 12/26/17 06:15 BUN 9 mg/dL (7-18) 12/26/17 06:15 Creatinine 0.6 mg/dL (0.7-1.3) L 12/26/17 06:15 Creat Clearance w eGFR > 60 (>60) 12/26/17 06:15 Calcium 7.8 mg/dL (8.5-10.1) L 12/26/17 06:15 Total Bilirubin 0.4 mg/dL (0.2-1.0) 12/26/17 06:15 AST 8 U/L (15-37) L 12/26/17 06:15 ALT 10 U/L (12-78) L 12/26/17 06:15 Alkaline Phosphatase 74 U/L (45-117) 12/26/17 06:15 Total Protein 6.5 g/dl (6.4-8.2) 12/26/17 06:15 Albumin 2.5 g/dl (3.4-5.0) L 12/26/17 06:15 Microbiology 12/23/17 16:30 Gram Stain - Final Toe - Left Hallux Wound Culture - Preliminary Enterobacter Aerogenes Pending Organism Proteus Mirabilis Group D Strep Or Entero Coccus Beta Hemolytic Strep Pending Organism#2 Pending Organism#3 Pending Organism#4 12/23/17 15:50 Blood Culture - Preliminary Blood - Peripheral Venous NO GROWTH OBTAINED AFTER 48 HOURS, INCUBATION TO CONTINUE FOR 3 DAYS. 12/23/17 15:50 Blood Culture - Preliminary Blood - Peripheral Venous NO GROWTH OBTAINED AFTER 48 HOURS, INCUBATION TO CONTINUE FOR 3 DAYS. 12/24/17 20:45 Gram Stain - Final Foot - Left 12/24/17 11:30 Urine Culture - Final Urine - Urine Clean Catch NO GROWTH OBTAINED ASSESSMENT AND PLAN: 57yo M with PMH non compliant DM presented to the ER with non healing ulcer on his L foot 1st toe for over 1 month. In the ER he was found to have OM confirmed on XR 1. L foot 1st digit OM-s/p 1st metatarsal amputation 12/24. will wait for bone bx results to determine if proximal bone margins are clean. cont vanco/zosyn day 4. ID, podiatry, vascular on board. F/U cx/ pain control. explained to pt he needs to request pain medications. encouraged to ambulate on heel of foot with surgical shoe. 2. DM- A1c 14.2. will cont iwth iss and bgm. will start metformin 1000mg BID and monitor sugars. will liekly require multiple medications to control. payment poster eval. 3. HTN- newly dx here. start lisinopril 4. DVT ppx- lovenox, Visit type - Emergency Visit Emergency Visit: Yes ED Registration Date: 12/23/17 Care time: The patient presented to the Emergency Department on the above date and was hospitalized for further evaluation of their emergent condition. - New Patient This patient is new to me today: No - Critical Care Critical Care patient: No - Discharge Referral Referred to [facility] Med P.C.: No
[2017-12-26] MEDS ORDERED: metFORMIN HCL 500 MG TABLET (FP) PO ONE (10:10)
[2017-12-26] MEDS: DOCUSATE SODIUM 100 MG CAPSULE (FP) PO SCH (10:57)
[2017-12-26] MEDS: LISINOPRIL 5 MG TABLET (FP) PO SCH (10:58)
[2017-12-26] MEDS: VANCOMYCIN 1,000 MG in DEXTROSE 5%-WATER - 250 ML IVPB SCH ×2 (11:48→21:51)
[2017-12-26] MEDS: metFORMIN HCL 500 MG TABLET (FP) PO SCH (17:46)
[2017-12-26] MEDS ORDERED: PT OWN MED DRAWER 7, Y5N ONE (18:09)
[2017-12-27] MEDS ORDERED: DEXTROSE 5%-WATER - 50 ML IVPB ONE ×3 (00:26→17:32)
[2017-12-27] MEDS ORDERED: PIPERACILLIN/TAZOBACTAM 3.375 GM VIAL IVPB ONE ×3 (00:26→17:32)
[2017-12-27] MEDS: PIPERACILLIN/TAZOB 3.375 GM 3.375 GM in DEXTROSE 5%-WATER - 50 ML IVPB SCH ×3 (01:02→17:58)
[2017-12-27] MEDS: HEPARIN NA (PORCINE) 5,000 UNITS/ML 1ML VIAL SQ SCH ×3 (01:04→18:00)
[2017-12-27] MEDS: INSULIN SLIDING SCALE (NOVOLOG) 1 VIAL SQ SCH ×4 (06:43→21:45)
[2017-12-27] MEDS: metFORMIN HCL 500 MG TABLET (FP) PO SCH ×2 (06:43→17:25)
[2017-12-27] MEDS ORDERED: INSULIN (NOVOLOG) ASPART 100 UNITS/ML 10ML VIAL ONE ×3 (06:47→20:32)
--- NOTE | 2017-12-27 07:15 | PN ---
Physical Exam: SUBJECTIVE: Patient seen and examined. No fevers or chest pain. No pain at amputation site. Still coughing OBJECTIVE: Vital Signs Period Temp Pulse Resp BP Sys/Garner Pulse Ox Last 24 Hr 97.4 F-99.5 F 80-91 18-20 113-153/68-94 96-96 Vital Signs Temp 97.4 F L 12/27/17 06:00 Pulse 80 12/27/17 06:00 Resp 18 12/27/17 06:00 BP 131/84 12/27/17 06:00 Pulse Ox 96 12/26/17 21:00 Intake & Output 12/26/17 12/26/17 12/27/17 11:59 23:59 11:59 Intake Total 320 600 300 Output Total 1000 Balance 320 -400 300 Intake: IVPB 50 350 300 Oral 270 250 Output: Urine 1000 Void 1000 Other: Voiding Method Bedpan Urinal Urinal Bowel Movement No Intake & Output 12/24/17 12/25/17 12/26/17 12/27/17 23:59 23:59 23:59 23:59 Intake Total 1596 3377 920 300 Output Total 1230 2950 1000 Balance 366 427 -80 300 Weight 75.75 kg GENERAL: The patient is awake, alert, and fully oriented, in no acute distress. LUNGS: Breath sounds equal, clear to auscultation bilaterally, no wheezes, no crackles, no accessory muscle use. HEART: Regular rate and rhythm, S1, S2 without murmur, rub or gallop. ABDOMEN: Soft, nontender, nondistended, normoactive bowel sounds, no guarding, no rebound, no hepatosplenomegaly, no masses. EXTREMITIES: 2+ pulses, warm, well-perfused, no edema. NEUROLOGICAL: Cranial nerves II through XII grossly intact. Normal speech, gait not observed. PSYCH: Normal mood, normal affect. SKIN: Warm, dry, normal turgor, no rashes or lesions noted Laboratory Results - last 24 hr 12/26/17 12/26/17 12/26/17 06:15 06:15 11:22 WBC 8.6 RBC 4.04 Hgb 11.5 L Hct 34.0 L MCV 84.3 MCH 28.5 MCHC 33.8 RDW 12.5 Plt Count 348 MPV 8.1 Neutrophils % 68.4 Lymphocytes % 21.9 D Monocytes % 7.7 Eosinophils % 0.9 Basophils % 1.1 Nucleated RBC % 0 Sodium 134 L Potassium 4.2 Chloride 100 Carbon Dioxide 27 Anion Gap 7 L BUN 9 Creatinine 0.6 L Creat Clearance w eGFR > 60 POC Glucometer 276 Random Glucose 200 H Calcium 7.8 L Phosphorus 4.0 Magnesium 1.9 Total Bilirubin 0.4 AST 8 L ALT 10 L Alkaline Phosphatase 74 Total Protein 6.5 Albumin 2.5 L 12/26/17 12/27/17 21:41 05:45 WBC RBC Hgb Hct MCV MCH MCHC RDW Plt Count MPV Neutrophils % Lymphocytes % Monocytes % Eosinophils % Basophils % Nucleated RBC % Sodium Potassium Chloride Carbon Dioxide Anion Gap BUN Creatinine Creat Clearance w eGFR POC Glucometer 297 188 Random Glucose Calcium Phosphorus Magnesium Total Bilirubin AST ALT Alkaline Phosphatase Total Protein Albumin Active Medications Generic Name Dose Route Start Last Admin Trade Name Freq PRN Reason Stop Dose Admin Acetaminophen 650 mg 12/23/17 19:24 12/25/17 03:39 Tylenol - PO 650 mg Q4H PRN Administration PAIN LEVEL 1-5 Acetaminophen 325 mg 12/25/17 14:19 12/26/17 03:59 Tylenol - PO 12/28/17 14:18 325 mg Q4H PRN Administration PAIN SCALE 4-6 Acetaminophen 325 mg 12/25/17 16:00 Tylenol - PO 12/28/17 15:59 Q4H PRN PAIN LEVEL 4-6 WITH OXYCODONE Docusate Sodium 100 mg 12/25/17 14:00 12/26/17 10:57 Colace - PO 100 mg DAILY [facility] Administration Fentanyl 25 mcg 12/24/17 15:44 Sublimaze Injection - IVPUSH [id number] PRN PAIN-PACU ORDER X 4 DOSES ONLY Guaifenesin 10 ml 12/25/17 14:01 12/26/17 22:18 Robitussin Dm - PO 10 ml Q4H PRN Administration COUGH Heparin Sodium (Porcine) 5,000 unit 12/24/17 02:00 12/27/17 01:04 Heparin - SQ 5,000 unit Q8H-IV [facility] Administration Vancomycin HCl 1,000 mg/ 250 mls @ 166.667 mls/hr 12/24/17 22:00 12/26/17 21: 51 Dextrose IVPB 166.667 mls/hr BID [facility]INO Administration Protocol Piperacillin Sod/Tazobactam 50 mls @ 100 mls/hr 12/24/17 21:15 12/27/17 01:02 Sod 3.375 gm/ Dextrose IVPB 100 mls/hr Q8H-IV [facility] Administration Protocol Insulin Aspart 1 vial 12/23/17 22:00 12/27/17 06:43 Novolog Vial Sliding Scale - SQ 2 units ACHS [facility]LE[facility]INO Administration Protocol Lisinopril 5 mg 12/26/17 10:15 12/26/17 10:58 Prinivil PO 5 mg DAILY [facility] Administration Metformin HCl 1,000 mg 12/26/17 16:30 12/27/17 06:43 Glucophage - PO 1,000 mg BID@0700,1630 [facility] Administration Ondansetron HCl 4 mg 12/24/17 15:44 Zofran Injection IVPUSH Q6H PRN NAUSEA AND/OR VOMITING Oxycodone HCl 5 mg 12/25/17 16:00 12/26/17 03:58 Roxicodone - PO 5 mg Q4H PRN Administration PAIN LEVEL 4-6 ASSESSMENT/PLAN: Pt is 57 yo M with PMHx of DM non compliant on oral hypoglycemics, presenting with swelling of the L great toe and non healing wound for 4 days. L great toe ulcer/osteomyelitis: Now s/p great toe amputation (12/24/17) Continue vanco 1000mg Cont iv Zosyn 3.375mg Consult wound/vascular- Dr Fish- appreciate recs Consult podiatry- Dr Ybarra- appreciate recs Consult ID- Dr Pike- appreciate recs Percocet for pain Blood cultures- -ve Wound cx- mixed rush thomas sensitive Pt may offload with surgical boot putting pressure on heel Incentive spirometry Pending biopsy results for margins DM : Sugars in the 100s on sliding scale [id number] BGM ACHS ISS ACHS Lipid profile-wnl Dietitian consult- Pt education UA- no evidence of microalbuminuria Will benefit from yearly ophthalmology visits at D/C Podiatry follow up at D/C Pt now on metformin 1000mg with sliding scale Will add glimepiride 2mg daily HTN: Lisinopril 5mg daily Cough: Noted postop Maybe related to anesthesia Incentive spirometry Robitussin D Monitor FEN: Oral fluids Monitor lytes Diabetic diet PPx: SQ heparin Dispo: For likely D/C tomorrow Visit type - Emergency Visit Emergency Visit: Yes ED Registration Date: 12/23/17 Care time: The patient presented to the Emergency Department on the above date and was hospitalized for further evaluation of their emergent condition. - New Patient This patient is new to me today: No - Critical Care Critical Care patient: No - Discharge Referral Referred to [facility] Med P.C.: No
[2017-12-27 08:03] LABS: BASO % 1.3 % (0-2.0); EOS % 1.8 % (0-4.5); HEMATOCRIT 34.7 % (35.4-49); HEMOGLOBIN 11.7 GM/dL (11.7-16.9); LYMPH % 16.6 % (8-40); MCH 28.4 pg (25.7-33.7); MCHC 33.8 g/dl (32.0-35.9); MEAN CELL VOLUME 84.2 fl (80-96); MEAN PLT VOLUME 7.4 fl (7.5-11.1); NEUT % 73.3 % (42.8-82.8); PLATELET COUNT 327 K/MM3 (134-434); RBC 4.12 M/mm3 (4.00-5.60); RDW 12.6 % (11.9-15.9); WHITE BLOOD COUNT 8.9 K/mm3 (4.0-10.0)
[2017-12-27 08:27] LABS: ANION GAP 7 (8-16); BLOOD UREA NITROGEN 10 mg/dL (7-18); CALCIUM 8.1 mg/dL (8.5-10.1); CHLORIDE 101 mmol/L (98-107); CO2 28 mmol/L (21-32); CREATININE 0.6 mg/dL (0.7-1.3); GLUCOSE,RANDOM 199 mg/dL (74-106); PHOSPHOROUS 3.5 mg/dL (2.5-4.9); POTASSIUM 4.1 mmol/L (3.5-5.1); SODIUM 136 mmol/L (136-145)
--- NOTE | 2017-12-27 08:27 | PN ---
Teaching Attending Note Name of Resident: Marti Sotomayor ATTENDING PHYSICIAN STATEMENT I saw and evaluated the patient. I reviewed the resident's note and discussed the case with the resident. I agree with the resident's findings and plan as documented. SUBJECTIVE:asymptomatic. denies CP, SOB, fever, chills, N/V/C/D OBJECTIVE: Last Vital Signs Temp Pulse Resp BP Pulse Ox 97.4 F L 80 18 131/84 96 12/27/17 06:00 12/27/17 06:00 12/27/17 06:00 12/27/17 06:00 12/26/17 21:00 General NAD Extremities L foot in dressing c/d/i ASSESSMENT AND PLAN: 57yo M with PMH non compliant DM presented to the ER with non healing ulcer on his L foot 1st toe for over 1 month. In the ER he was found to have OM confirmed on XR 1. L foot 1st digit OM-s/p 1st metatarsal amputation 12/24. will wait for bone bx results to determine if proximal bone margins are clean.Wound Cx showing polymicorbial. can d/c vanco. cont zosyn day 5. ID, podiatry, vascular on board. F/U cx/ pain control. encouraged to ambulate on heel of foot with surgical shoe. 2. DM- A1c 14.2. started on metformin yesterday, still requiring high amounts of coverage. will start glimperide 2mg as it is on [employer] $4 list and affordable for the patient. cont to titrate medications as needed. encourage diet adjustments as well. 3. HTN- newly dx here. improved. on lisinopril 4. DVT ppx- lovenox, 5. discharge pending results of proximal bone bx,
[2017-12-27] MEDS ORDERED: GLIMEPIRIDE 2 MG TABLET (FP) PO ONE (08:45)
[2017-12-27] MEDS: LISINOPRIL 5 MG TABLET (FP) PO SCH (10:59)
[2017-12-27] MEDS: DOCUSATE SODIUM 100 MG CAPSULE (FP) PO SCH (10:59)
--- NOTE | 2017-12-27 20:05 | PN ---
Progress Note, Physician History of Present Illness: No c/o foot pain No fever/ chills Foot examined with nurse - Current Medication List Current Medications: Active Medications Acetaminophen (Tylenol -) 650 mg PO Q4H PRN PRN Reason: PAIN LEVEL 1-5 Last Admin: 12/25/17 03:39 Dose: 650 mg Acetaminophen (Tylenol -) 325 mg PO Q4H PRN PRN Reason: PAIN LEVEL 4-6 WITH OXYCODONE Stop: 12/28/17 15:59 Docusate Sodium (Colace -) 100 mg PO DAILY [facility] Last Admin: 12/27/17 10:59 Dose: 100 mg Glimepiride (Amaryl -) 2 mg PO DAILY@0700 [facility] Guaifenesin (Robitussin Dm -) 10 ml PO Q4H PRN PRN Reason: COUGH Last Admin: 12/26/17 22:18 Dose: 10 ml Heparin Sodium (Porcine) (Heparin -) 5,000 unit SQ Q8H-IV [facility] Last Admin: 12/27/17 18:00 Dose: 5,000 unit Piperacillin Sod/Tazobactam (Sod 3.375 gm/ Dextrose) 50 mls @ 100 mls/hr IVPB Q8H-IV [facility]; Protocol Last Admin: 12/27/17 17:58 Dose: 100 mls/hr Insulin Aspart (Novolog Vial Sliding Scale -) 1 vial SQ ACHS [facility]; Protocol Last Admin: 12/27/17 17:25 Dose: 6 units Lisinopril (Prinivil) 5 mg PO DAILY [facility] Last Admin: 12/27/17 10:59 Dose: 5 mg Metformin HCl (Glucophage -) 1,000 mg PO BID@0700,1630 [facility] Last Admin: 12/27/17 17:25 Dose: 1,000 mg Ondansetron HCl (Zofran Injection) 4 mg IVPUSH Q6H PRN PRN Reason: NAUSEA AND/OR VOMITING Oxycodone HCl (Roxicodone -) 5 mg PO Q4H PRN PRN Reason: PAIN LEVEL 4-6 Last Admin: 12/26/17 03:58 Dose: 5 mg Polyethylene Glycol (Miralax (For Daily Use) -) 17 gm PO DAILY [facility] - Objective Vital Signs: Vital Signs Temperature 99.0 F 12/27/17 17:59 Pulse Rate 93 H 12/27/17 17:59 Respiratory Rate 18 12/27/17 17:59 Blood Pressure 133/79 12/27/17 17:59 O2 Sat by Pulse Oximetry (%) 96 12/27/17 09:00 Constitutional: Yes: No Distress Cardiovascular: Yes: Regular Rate and Rhythm, S1, S2 Respiratory: Yes: CTA Bilaterally Labs: CBC, BMP 12/27/17 07:55 12/27/17 07:55 INR, PTT INR 1.05 (0.82-1.09) 12/23/17 15:50 Assessment/Plan S/P L hallux amputation and bx 1st MT + wound c/s polymicrobial including MRSA Await bx report Continue zosyn. Resume vancomycin
[2017-12-27] MEDS ORDERED: VANCOMYCIN 1 GM PREMIX - 1 GM/200 ML BAG IVPB SCH (20:15)
[2017-12-27] MEDS: guaiFENesin/D-METHORPHAN HB 10 ML UNIT-DOSE CUPS PO PRN (21:44)
[2017-12-27] MEDS ORDERED: PT OWN MED DRAWER 7, Y5N ONE (21:44)
[2017-12-28] MEDS ORDERED: DEXTROSE 5%-WATER - 50 ML IVPB ONE ×3 (02:21→17:03)
[2017-12-28] MEDS ORDERED: PIPERACILLIN/TAZOBACTAM 3.375 GM VIAL IVPB ONE ×3 (02:21→17:03)
[2017-12-28] MEDS: HEPARIN NA (PORCINE) 5,000 UNITS/ML 1ML VIAL SQ SCH ×3 (02:42→17:13)
[2017-12-28] MEDS: PIPERACILLIN/TAZOB 3.375 GM 3.375 GM in DEXTROSE 5%-WATER - 50 ML IVPB SCH ×3 (02:42→17:13)
[2017-12-28] MEDS: POLYETHYLENE GLYCOL 3350 119 GM BTL PO SCH ×2 (04:20→12:25)
[2017-12-28] MEDS ORDERED: PT OWN MED DRAWER 7, Y5N ONE ×3 (06:36→20:14)
[2017-12-28] MEDS: metFORMIN HCL 500 MG TABLET (FP) PO SCH ×2 (07:02→17:13)
[2017-12-28] MEDS: GLIMEPIRIDE 2 MG TABLET (FP) PO SCH (07:02)
[2017-12-28] MEDS: INSULIN SLIDING SCALE (NOVOLOG) 1 VIAL SQ SCH ×4 (07:02→22:54)
[2017-12-28 07:32] LABS: BASO % 0.9 % (0-2.0); EOS % 3.1 % (0-4.5); HEMATOCRIT 33.2 % (35.4-49); HEMOGLOBIN 11.4 GM/dL (11.7-16.9); LYMPH % 23.1 % (8-40); MCH 28.9 pg (25.7-33.7); MCHC 34.4 g/dl (32.0-35.9); MEAN CELL VOLUME 84.2 fl (80-96); MEAN PLT VOLUME 7.9 fl (7.5-11.1); MONO % 6.2 % (3.8-10.2); NEUT % 66.7 % (42.8-82.8); PLATELET COUNT 351 K/MM3 (134-434); RBC 3.94 M/mm3 (4.00-5.60); RDW 12.4 % (11.9-15.9); WHITE BLOOD COUNT 8.7 K/mm3 (4.0-10.0)
[2017-12-28 07:53] LABS: MAGNESIUM 2.1 mg/dL (1.8-2.4)
[2017-12-28 07:55] LABS: PHOSPHOROUS 3.9 mg/dL (2.5-4.9)
--- NOTE | 2017-12-28 08:32 | PN ---
Addendum entered and electronically signed by Garcia Ballard, RESIDENT 12/28/17 09: 45: Infectious Disease service Original Note: Progress Note (short form) - Note Progress Note: Patient seen and examined at bedside complains of right foot "falling asleep" afebrile WBC count WNL Vital Signs Temperature 97.8 F 12/28/17 05:52 Pulse Rate 84 12/28/17 05:52 Respiratory Rate 20 12/28/17 05:52 Blood Pressure 123/84 12/28/17 05:52 O2 Sat by Pulse Oximetry (%) 96 12/27/17 21:00 PE: NAD RRR S1 S2 no murmur CTAB no LE edema left foot toe with sutures in place. no drainage. no erythema Micro: Microbiology 12/23/17 15:50 Blood - Peripheral Venous Blood Culture - Preliminary NO GROWTH OBTAINED AFTER 96 HOURS, INCUBATION TO CONTINUE FOR 1 DAYS. 12/23/17 15:50 Blood - Peripheral Venous Blood Culture - Preliminary NO GROWTH OBTAINED AFTER 96 HOURS, INCUBATION TO CONTINUE FOR 1 DAYS. 12/23/17 16:30 Toe - Left Hallux Gram Stain - Final 12/23/17 16:30 Toe - Left Hallux Wound Culture - Preliminary Enterobacter Aerogenes Pending Organism Proteus Mirabilis Enterococcus Faecalis Mr S Aureus 12/24/17 20:45 Foot - Left Gram Stain - Final 12/24/17 20:45 Foot - Left Wound Culture - Preliminary 12/24/17 11:30 Urine - Urine Clean Catch Urine Culture - Final NO GROWTH OBTAINED Laboratory Last Values WBC 8.7 K/mm3 (4.0-10.0) 12/28/17 06:20 RBC 3.94 M/mm3 (4.00-5.60) L 12/28/17 06:20 Hgb 11.4 GM/dL (11.7-16.9) L 12/28/17 06:20 Hct 33.2 % (35.4-49) L 12/28/17 06:20 MCV 84.2 fl (80-96) 12/28/17 06:20 MCH 28.9 pg (25.7-33.7) 12/28/17 06:20 MCHC 34.4 g/dl (32.0-35.9) 12/28/17 06:20 RDW 12.4 % (11.9-15.9) 12/28/17 06:20 Plt Count 351 K/MM3 (134-434) 12/28/17 06:20 MPV 7.9 fl (7.5-11.1) 12/28/17 06:20 Neutrophils % 66.7 % (42.8-82.8) 12/28/17 06:20 Lymphocytes % 23.1 % (8-40) D 12/28/17 06:20 Monocytes % 6.2 % (3.8-10.2) 12/28/17 06:20 Eosinophils % 3.1 % (0-4.5) 12/28/17 06:20 Basophils % 0.9 % (0-2.0) 12/28/17 06:20 Nucleated RBC % 0 % (0-0) 12/28/17 06:20 ESR 79 mm/hr (0-20) H 12/24/17 03:15 PT with INR 11.90 SEC (9.7-13.0) 12/23/17 15:50 INR 1.05 (0.82-1.09) 12/23/17 15:50 Sodium 136 mmol/L (136-145) 12/27/17 07:55 Potassium 4.1 mmol/L (3.5-5.1) 12/27/17 07:55 Chloride 101 mmol/L (98-107) 12/27/17 07:55 Carbon Dioxide 28 mmol/L (21-32) 12/27/17 07:55 Anion Gap 7 (8-16) L 12/27/17 07:55 BUN 10 mg/dL (7-18) 12/27/17 07:55 Creatinine 0.6 mg/dL (0.7-1.3) L 12/27/17 07:55 Creat Clearance w eGFR > 60 (>60) 12/26/17 06:15 POC Glucometer 194 UNITS (80-120) 12/28/17 07:01 Random Glucose 199 mg/dL (74-106) H 12/27/17 07:55 Hemoglobin A1c % 14.2 % (4.8-6.0) H 12/24/17 03:15 Lactic Acid 1.0 mmol/L (0.0-2.0) 12/23/17 18:30 Calcium 8.1 mg/dL (8.5-10.1) L 12/27/17 07:55 Phosphorus 3.9 mg/dL (2.5-4.9) 12/28/17 06:20 Magnesium 2.1 mg/dL (1.8-2.4) 12/28/17 06:20 Total Bilirubin 0.4 mg/dL (0.2-1.0) 12/26/17 06:15 AST 8 U/L (15-37) L 12/26/17 06:15 ALT 10 U/L (12-78) L 12/26/17 06:15 Alkaline Phosphatase 74 U/L (45-117) 12/26/17 06:15 C-Reactive Protein 1.2 MG/DL (0.00-0.3) H 12/24/17 03:15 Total Protein 6.5 g/dl (6.4-8.2) 12/26/17 06:15 Albumin 2.5 g/dl (3.4-5.0) L 12/26/17 06:15 Triglycerides 96 mg/dL (35-160) 12/24/17 03:15 Cholesterol 144 mg/dL (50-200) 12/24/17 03:15 Total LDL Cholesterol 94 mg/dL (5-100) 12/24/17 03:15 HDL Cholesterol 45 mg/dL (40-60) 12/24/17 03:15 Urine Color Ltyellow 12/24/17 11:30 Urine Appearance Clear 12/24/17 11:30 Urine pH 6.0 (5.0-8.0) 12/24/17 11:30 Ur Specific [place] 1.012 (1.001-1.035) 12/24/17 11:30 Urine Protein Negative (NEGATIVE) 12/24/17 11:30 Urine Glucose (UA) 3+ (NEGATIVE) H 12/24/17 11:30 Urine Ketones Negative (NEGATIVE) 12/24/17 11:30 Urine Blood Negative (NEGATIVE) 12/24/17 11:30 Urine Nitrite Negative (NEGATIVE) 12/24/17 11:30 Urine Bilirubin Negative (<2.0 mg/dL) 12/24/17 11:30 Urine Urobilinogen Negative mg/dL (0.2-1.0) 12/24/17 11:30 Ur Leukocyte Esterase Negative (NEGATIVE) 12/24/17 11:30 Random Vancomycin 7.743 ug/ml 12/25/17 10:39 Blood Type O POSITIVE 12/23/17 16:40 Antibody Screen Negative 12/23/17 16:40 A/P: Problem List: DM-uncontrolled HTN left first toe amputation/osteomyeltitis polymicrobuial infections MRSA Plan: Continue zosyn continue vancomycin-increased to 1500mg BID f/u surgical pathology Case discussed with Dr. Hodge
[2017-12-28] MEDS: DOCUSATE SODIUM 100 MG CAPSULE (FP) PO SCH (09:35)
[2017-12-28] MEDS: LISINOPRIL 5 MG TABLET (FP) PO SCH (09:35)
[2017-12-28] MEDS ORDERED: VANCOMYCIN 1,500 MG in DEXTROSE 5%-WATER - 250 ML IVPB SCH (10:00)
[2017-12-28] MEDS ORDERED: VANCOMYCIN 1,500 MG in DEXTROSE 5%-WATER - 500 ML IVPB SCH (10:00)
--- NOTE | 2017-12-28 11:30 | PN ---
Teaching Attending Note Name of Resident: Garcia Ballard ATTENDING PHYSICIAN STATEMENT I saw and evaluated the patient. I reviewed the resident's note and discussed the case with the resident. I agree with the resident's findings and plan as documented. SUBJECTIVE: no complaints OBJECTIVE: Vital Signs Period Temp Pulse Resp BP Sys/Garner Pulse Ox Last 24 Hr 97.8 F-99.1 F 80-93 18-20 117-142/74-84 89-96 cor-rrr llungs clear abd soft,nt ext dressing intact CBC, BMP 12/28/17 06:20 12/27/17 07:55 ASSESSMENT AND PLAN: a/p amputation 12/24 for gangrene awaiting pathology and cultures to see if alf antibiotics are needed adjusting vancomycin dosing-level low continue zosyn poorly controlled diabetes-hgbaic 14
[2017-12-28] MEDS ORDERED: VANCOMYCIN 1,250 MG in DEXTROSE 5%-WATER - 500 ML IVPB SCH (11:33)
--- NOTE | 2017-12-28 13:57 | PN ---
Progress Note (short form) - Note Progress Note: Podiatry F/U: Seen/evaluated at bedside NAD. Pain controlled, denies F/V/N/C/SOB/CP. Afebrile. S/p L great toe amputation. JESSIE: L foot: sutures well coapted, no dehiscence, no purulent drainage, no fluctuance , no periwound erythema, no ascending cellulitis, no signs of active infection. Wound Cx: mixed orgs OR Cx: group D strep OR Path: pending Imp: 57 year old DM M s/p L great toe amputation 1. IV abx 2. DSD L foot 3. Partial WB L heel with surgical shoe 4. Glycemic control 5. F/U OR path 6. Will follow Elder Ybarra DPM
--- NOTE | 2017-12-28 14:15 | PN ---
Teaching Attending Note Name of Resident: Marti Sotomayor ATTENDING PHYSICIAN STATEMENT I saw and evaluated the patient. I reviewed the resident's note and discussed the case with the resident. I agree with the resident's findings and plan as documented. SUBJECTIVE:asymptomatic. denies Cp, SOB, fever, chills, N/V/C/D OBJECTIVE: Last Vital Signs Temp Pulse Resp BP Pulse Ox 98.1 F 92 H 20 117/74 89 L 12/28/17 09:00 12/28/17 09:00 12/28/17 09:00 12/28/17 09:00 12/28/17 09:00 General NAD Extremities L foot with 1st metatarsal amputation. sutures in place. good approximation. no drainage noted ASSESSMENT AND PLAN: 57yo M with PMH non compliant DM presented to the ER with non healing ulcer on his L foot 1st toe for over 1 month. In the ER he was found to have OM confirmed on XR 1. L foot 1st digit OM-s/p 1st metatarsal amputation 12/24. awaiting proximal bone bx results. wound Cx +MRSA. vanco level subtherapeutic. will incrase vanco to 1.25g BID. check level prior to 4th dose. may not need abx at all pending results of prox bone bx result. cont vanco/zosyn day 6. ID, podiatry, vascular on board. F/U cx/ pain control. encouraged to ambulate on heel of foot with surgical shoe. 2. DM- A1c 14.2. started on glimperide yesterday, still requiring high amounts of coverage. cont current management. cont to adjust as needed. encourage diet adjustments as well. 3. HTN- newly dx here. improved. on lisinopril 4. DVT ppx- lovenox, 5. discharge pending results of proximal bone bx, anticipate tomorrow. pt is undocumented. plan to f/u in wound care center and resident clinic on discharge
--- NOTE | 2017-12-28 16:30 | PN ---
Physical Exam: SUBJECTIVE: Patient seen and examined. Still coughing, no fevers. Minimal pain at amputation site. OBJECTIVE: Vital Signs Period Temp Pulse Resp BP Sys/Garner Pulse Ox Last 24 Hr 97.8 F-99.0 F 80-93 18-22 117-142/74-84 89-96 Vital Signs Temp 97.8 F 12/28/17 15:24 Pulse 86 12/28/17 15:24 Resp 22 12/28/17 15:24 BP 135/79 12/28/17 15:24 Pulse Ox 89 L 12/28/17 09:00 Intake & Output 12/27/17 12/28/17 12/28/17 23:59 11:59 23:59 Intake Total 600 300 Output Total 800 900 Balance -200 -600 Intake: IVPB 100 300 Oral 500 Output: Urine 800 900 Void 800 900 Other: Voiding Method Urinal Urinal Urinal # Unmeasured Voids Void 2 Bowel Movement No No Yes GENERAL: The patient is awake, alert, and fully oriented, in no acute distress. LUNGS: Breath sounds equal, clear to auscultation bilaterally, no wheezes, no crackles HEART: Regular rate and rhythm, S1, S2 without murmur ABDOMEN: Soft, nontender, nondistended, normoactive bowel sounds EXTREMITIES: 2+ pulses, warm, well-perfused, no edema. L foot in bandage, clean dry, no foul odor. Stitches intact over stump of amputated L great toe NEUROLOGICAL: AAO x3. Normal speech, gait not observed. Laboratory Results - last 24 hr 12/26/17 12/27/17 12/27/17 17:27 17:17 21:41 WBC RBC Hgb Hct MCV MCH MCHC RDW Plt Count MPV Neutrophils % Lymphocytes % Monocytes % Eosinophils % Basophils % Nucleated RBC % POC Glucometer 238 291 190 Phosphorus Magnesium 12/28/17 12/28/17 12/28/17 06:20 06:20 07:01 WBC 8.7 RBC 3.94 L Hgb 11.4 L Hct 33.2 L MCV 84.2 MCH 28.9 MCHC 34.4 RDW 12.4 Plt Count 351 MPV 7.9 Neutrophils % 66.7 Lymphocytes % 23.1 D Monocytes % 6.2 Eosinophils % 3.1 Basophils % 0.9 Nucleated RBC % 0 POC Glucometer 194 Phosphorus 3.9 Magnesium 2.1 06/04/18 11:18 WBC RBC Hgb Hct MCV MCH MCHC RDW Plt Count MPV Neutrophils % Lymphocytes % Monocytes % Eosinophils % Basophils % Nucleated RBC % POC Glucometer 311 Phosphorus Magnesium Active Medications Generic Name Dose Route Start Last Admin Trade Name Freq PRN Reason Stop Dose Admin Acetaminophen 650 mg 12/23/17 19:24 12/25/17 03:39 Tylenol - PO 650 mg Q4H PRN Administration PAIN LEVEL 1-5 Docusate Sodium 100 mg 12/25/17 14:00 12/28/17 09:35 Colace - PO 100 mg DAILY [facility] Administration Glimepiride 2 mg 12/28/17 07:00 12/28/17 07:02 Amaryl - PO 2 mg DAILY@0700 [facility] Administration Guaifenesin 10 ml 12/25/17 14:01 12/27/17 21:44 Robitussin Dm - PO 10 ml Q4H PRN Administration COUGH Heparin Sodium (Porcine) 5,000 unit 12/24/17 02:00 12/28/17 09:35 Heparin - SQ 5,000 unit Q8H-IV [facility] Administration Piperacillin Sod/Tazobactam 50 mls @ 100 mls/hr 12/24/17 21:15 12/28/17 09:35 Sod 3.375 gm/ Dextrose IVPB 100 mls/hr Q8H-IV [facility] Administration Protocol Vancomycin HCl 1,250 mg/ 250 mls @ 166.667 mls/hr 12/28/17 22:00 Dextrose IVPB BID [facility] Protocol Insulin Aspart 1 vial 12/23/17 22:00 12/28/17 12:17 Novolog Vial Sliding Scale - SQ 8 units ACHS [facility] Administration Protocol Lisinopril 5 mg 12/26/17 10:15 12/28/17 09:35 Prinivil PO 5 mg DAILY [facility] Administration Metformin HCl 1,000 mg 12/26/17 16:30 12/28/17 07:02 Glucophage - PO 1,000 mg BID@0700,1630 [facility] Administration Ondansetron HCl 4 mg 12/24/17 15:44 Zofran Injection IVPUSH Q6H PRN NAUSEA AND/OR VOMITING Oxycodone HCl 5 mg 12/25/17 16:00 12/26/17 03:58 Roxicodone - PO 5 mg Q4H PRN Administration PAIN LEVEL 4-6 Polyethylene Glycol 17 gm 12/27/17 14:45 12/28/17 12:25 Miralax (For Daily Use) - PO Not Given DAILY [facility] Microbiology 12/23/17 15:50 Blood - Peripheral Venous Blood Culture - Final NO GROWTH AFTER 5 DAYS INCUBATION 12/23/17 15:50 Blood - Peripheral Venous Blood Culture - Final NO GROWTH AFTER 5 DAYS INCUBATION 12/23/17 16:30 Toe - Left Hallux Gram Stain - Final 12/23/17 16:30 Toe - Left Hallux Wound Culture - Final Enterobacter Aerogenes Enterobacter Aerogenes#2 Proteus Mirabilis Enterococcus Faecalis Mr S Aureus 12/24/17 20:45 Foot - Left Gram Stain - Final 12/24/17 20:45 Foot - Left Wound Culture - Preliminary Group D Strep Or Entero Coccus Pt is 57 yo M with PMHx of DM non compliant on oral hypoglycemics, presenting with swelling of the L great toe and non healing wound for 4 days. L great toe osteomyelitis: Now s/p L great toe amputation (12/24/17) Continue vanco- 1250mg Cont iv Zosyn 3.375mg Consult wound/vascular- Dr Fish- appreciate recs Consult podiatry- Dr Ybarra- appreciate recs Consult ID- Dr Pike- appreciate recs Percocet for pain MRSA- contact isolation Pt may offload with surgical boot putting pressure on heel Incentive spirometry Pending biopsy results for margins DM : Sugars in the 100s on sliding scale [id number] BGM ACHS ISS ACHS Lipid profile-wnl Dietitian consult- Pt education UA- no evidence of microalbuminuria Will benefit from yearly ophthalmology visits at D/C Podiatry follow up at D/C Pt now on metformin 1000mg with sliding scale Continue glimepiride 2mg daily HTN: Lisinopril 5mg daily Cough: Noted postop Maybe related to anesthesia Incentive spirometry Robitussin D Monitor FEN: Oral fluids Monitor lytes Diabetic diet PPx: SQ heparin Dispo: For likely D/C tomorrow Visit type - Emergency Visit Emergency Visit: Yes ED Registration Date: 12/23/17 Care time: The patient presented to the Emergency Department on the above date and was hospitalized for further evaluation of their emergent condition. - New Patient This patient is new to me today: No - Critical Care Critical Care patient: No - Discharge Referral Referred to [facility] Med P.C.: No
[2017-12-28] MEDS: VANCOMYCIN 1,250 MG in DEXTROSE 5%-WATER - 250 ML IVPB SCH (22:52)
[2017-12-29] MEDS ORDERED: PIPERACILLIN/TAZOBACTAM 3.375 GM VIAL IVPB ONE ×3 (01:03→16:45)
[2017-12-29] MEDS ORDERED: DEXTROSE 5%-WATER - 50 ML IVPB ONE ×3 (01:03→16:45)
[2017-12-29] MEDS: HEPARIN NA (PORCINE) 5,000 UNITS/ML 1ML VIAL SQ SCH ×3 (01:15→17:04)
[2017-12-29] MEDS: PIPERACILLIN/TAZOB 3.375 GM 3.375 GM in DEXTROSE 5%-WATER - 50 ML IVPB SCH ×3 (01:16→17:03)
[2017-12-29] MEDS ORDERED: PT OWN MED DRAWER 7, Y5N ONE ×2 (05:33→20:31)
[2017-12-29] MEDS: metFORMIN HCL 500 MG TABLET (FP) PO SCH ×2 (06:07→16:57)
[2017-12-29] MEDS: INSULIN SLIDING SCALE (NOVOLOG) 1 VIAL SQ SCH ×4 (06:07→21:15)
[2017-12-29] MEDS: GLIMEPIRIDE 2 MG TABLET (FP) PO SCH (06:07)
[2017-12-29] MEDS: guaiFENesin/D-METHORPHAN HB 10 ML UNIT-DOSE CUPS PO PRN (06:12)
[2017-12-29] MEDS: VANCOMYCIN 1,250 MG in DEXTROSE 5%-WATER - 250 ML IVPB SCH ×2 (10:09→21:15)
[2017-12-29] MEDS: LISINOPRIL 5 MG TABLET (FP) PO SCH (10:10)
[2017-12-29] MEDS: DOCUSATE SODIUM 100 MG CAPSULE (FP) PO SCH (10:10)
[2017-12-29] MEDS: POLYETHYLENE GLYCOL 3350 119 GM BTL PO SCH (10:10)
[2017-12-29] MEDS: guaiFENesin/D-METHORPHAN HB 5 ML UNIT-DOSE CUPS PO PRN ×3 (10:10→23:30)
[2017-12-29] MEDS ORDERED: INSULIN (NOVOLOG) ASPART 100 UNITS/ML 10ML VIAL ONE ×2 (11:06→20:37)
--- NOTE | 2017-12-29 12:54 | PN ---
Progress Note (short form) - Note Progress Note: Infectious Disease Patient seen and examined at bedside afebrile WBC count WNL Vital Signs Temperature 98.3 F 12/29/17 05:59 Pulse Rate 80 12/29/17 05:59 Respiratory Rate 20 12/29/17 05:59 Blood Pressure 131/83 12/29/17 05:59 O2 Sat by Pulse Oximetry (%) 96 12/28/17 21:00 PE: NAD RRR S1 S2 no murmur CTAB no LE edema left foot toe with sutures in place. no erythema. some dried blood on dressing Microbiology 12/24/17 20:45 Foot - Left Gram Stain - Final 12/24/17 20:45 Foot - Left Wound Culture - Preliminary Enterococcus Faecalis 12/23/17 15:50 Blood - Peripheral Venous Blood Culture - Final NO GROWTH AFTER 5 DAYS INCUBATION 12/23/17 15:50 Blood - Peripheral Venous Blood Culture - Final NO GROWTH AFTER 5 DAYS INCUBATION 12/23/17 16:30 Toe - Left Hallux Gram Stain - Final 12/23/17 16:30 Toe - Left Hallux Wound Culture - Final Enterobacter Aerogenes Enterobacter Aerogenes#2 Proteus Mirabilis Enterococcus Faecalis Mr S Aureus 12/24/17 11:30 Urine - Urine Clean Catch Urine Culture - Final NO GROWTH OBTAINED A/P: Problem List: DM-uncontrolled HTN left first toe amputation/osteomyeltitis polymicrobuial infections MRSA Plan: Continue zosyn continue vancomycin-increased to 1250mg BID f/u surgical pathology-called today still pending final diagnosis by pathologist Vancomycin trough tomorrow before PM dose
--- NOTE | 2017-12-29 15:31 | PATH ---
Surgical Pathology Report Patient Name: EBONIE WILKERSON Med. Rec. #: [id number] /Age/Gender: 1960 (Age: 57) / M Account: [id number] Location: [facility] MED/SURG Taken: 12/24/2017 Received: 12/25/2017 Reported: 12/29/2017 Physicians: Nydia Quintero M.D. Specimen(s) Received A: LEFT FIRST GREAT TOE B: LEFT FIRST METATARSAL BONE BIOPSY Clinical History Osteomyelitis Final Diagnosis A. FOOT, GREAT TOE, LEFT, AMPUTATION: DIGIT WITH ACUTE AND CHRONIC GANGRENOUS NECROSIS AND ASSOCIATED ULCERATION. UNDERLYING BONE WITH ACUTE OSTEOMYELITIS. SKIN, SOFT TISSUE AND BONE SURGICAL MARGINS ARE VIABLE. B. FIRST METATARSAL BONE, LEFT, BIOPSY: BONE WITHOUT SIGNIFICANT PATHOLOGIC FINDINGS. BENIGN DENSE FIBROCONNECTIVE AND FIBROADIPOSE TISSUE. Electronically Signed Viviane Fowler M.D. Gross Description A. Received in formalin labeled "left foot great toe," is a 6.7 x 3.8 x 3.7 cm toe amputation. The epidermal surface displays a 3.8 x 3.2 cm ulcerated, gangrenous lesion extending to 1.0 cm from the skin and soft tissue margin. The lesion involves the underlying bone. Also received within the same container is a 3.7 x 3.2 x 1.5 cm aggregate of velazquez bone, skin and soft tissue fragments. [employer]st sections are submitted in 4 cassettes as follows: 1-lesion with underlying bone, following decalcification; 2-bone margin, following decalcification; 3-skin and soft tissue margin; 4-separately received fragments of bone and soft tissue, following decalcification. B. Received in formalin labeled "left first metatarsal bone biopsy," is a 2.5 x 2.1 x 2.0 cm portion of bone with smooth articular cartilage at one end. The opposing end displays smooth, trabeculated bone. Financial Data Analyst sections are submitted in 2 cassettes as follows: 1-bone margin with articular cartilage, following decalcification; 2-opposing bone margin with trabeculated bone, following decalcification. 12/28/201712/28/2017
--- NOTE | 2017-12-29 15:43 | PN ---
Teaching Attending Note Name of Resident: Marti Sotomayor ATTENDING PHYSICIAN STATEMENT I saw and evaluated the patient. I reviewed the resident's note and discussed the case with the resident. I agree with the resident's findings and plan as documented with exceptions below. SUBJECTIVE: patient seen and examined. no new complaints, has been ambulating. OBJECTIVE: Vital Signs Period Temp Pulse Resp BP Sys/Garner Pulse Ox Last 24 Hr 98.2 F-99.8 F 78-90 16-20 99-141/54-87 96-96 Intake & Output 12/26/17 12/27/17 12/28/17 12/29/17 23:59 23:59 23:59 23:59 Intake Total 920 900 540 750 Output Total 2206 680 2311 1000 Balance -80 100 -1160 -250 General: lying in bed, no acute distress Extremities: left foot dressing, minimal blood soaking of the wound area Home Medications Medication Instructions Recorded Glimepiride 2 mg PO DAILY #14 tablet 12/28/17 Lisinopril [Prinivil] 5 mg PO DAILY #30 tablet 12/28/17 Metformin HCl [Metformin HCl ER] 1,000 mg PO BID #60 tab.er.24 12/28/17 Active Medications Acetaminophen (Tylenol -) 650 mg PO Q4H PRN PRN Reason: PAIN LEVEL 1-5 Last Admin: 12/25/17 03:39 Dose: 650 mg Docusate Sodium (Colace -) 100 mg PO DAILY [facility] Last Admin: 12/29/17 10:10 Dose: 100 mg Glimepiride (Amaryl -) 2 mg PO DAILY@0700 [facility] Last Admin: 12/29/17 06:07 Dose: 2 mg Guaifenesin (Guaifenesin Dm Syrup) 10 ml PO Q4H PRN PRN Reason: COUGH Last Admin: 12/29/17 10:10 Dose: 10 ml Heparin Sodium (Porcine) (Heparin -) 5,000 unit SQ Q8H-IV [facility] Last Admin: 12/29/17 10:10 Dose: 5,000 unit Piperacillin Sod/Tazobactam (Sod 3.375 gm/ Dextrose) 50 mls @ 100 mls/hr IVPB Q8H-IV [facility]; Protocol Last Admin: 12/29/17 10:09 Dose: 100 mls/hr Vancomycin HCl 1,250 mg/ (Dextrose) 250 mls @ 166.667 mls/hr IVPB BID [facility]; Protocol Last Admin: 12/29/17 10:09 Dose: 166.667 mls/hr Insulin Aspart (Novolog Vial Sliding Scale -) 1 vial SQ ACHS [facility]; Protocol Last Admin: 12/29/17 11:13 Dose: 4 units Lisinopril (Prinivil) 5 mg PO DAILY [facility] Last Admin: 12/29/17 10:10 Dose: 5 mg Metformin HCl (Glucophage -) 1,000 mg PO BID@0700,1630 [facility] Last Admin: 12/29/17 06:07 Dose: 1,000 mg Ondansetron HCl (Zofran Injection) 4 mg IVPUSH Q6H PRN PRN Reason: NAUSEA AND/OR VOMITING Oxycodone HCl (Roxicodone -) 5 mg PO Q4H PRN PRN Reason: PAIN LEVEL 4-6 Last Admin: 12/26/17 03:58 Dose: 5 mg Polyethylene Glycol (Miralax (For Daily Use) -) 17 gm PO DAILY [facility] Last Admin: 12/29/17 10:10 Dose: Not Given Laboratory Results - last 24 hr 12/28/17 12/28/17 12/29/17 16:15 22:53 06:06 POC Glucometer 266 229 203 12/29/17 11:12 POC Glucometer 209 Microbiology 12/24/17 20:45 Foot - Left Gram Stain - Final 12/24/17 20:45 Foot - Left Wound Culture - Final Enterococcus Faecalis 12/23/17 15:50 Blood - Peripheral Venous Blood Culture - Final NO GROWTH AFTER 5 DAYS INCUBATION 12/23/17 15:50 Blood - Peripheral Venous Blood Culture - Final NO GROWTH AFTER 5 DAYS INCUBATION 12/23/17 16:30 Toe - Left Hallux Gram Stain - Final 12/23/17 16:30 Toe - Left Hallux Wound Culture - Final Enterobacter Aerogenes Enterobacter Aerogenes#2 Proteus Mirabilis Enterococcus Faecalis Mr S Aureus 12/24/17 11:30 Urine - Urine Clean Catch Urine Culture - Final NO GROWTH OBTAINED Surgical pathology prelim report noted, Metatarsal biopsy neg for osteomyelitis ASSESSMENT AND PLAN: 57yo M with PMH non compliant DM presented to the ER with non healing ulcer on his L foot 1st toe for over 1 month. 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 Surgical pathology prelim noted, metatarsal biopsy neg for osteo. Discuss with ID. Podiatry input noted. Wound care teaching by RN with patient and family. Surgical shoe, partial weight bearing. Glimepiride/metformin. Hold off on insulin for now till adequate care established as likely to be non compliant with continued higher risk for hyperglycemia. Continue lisinopril PT eval for activity instruction. DVT ppx- lovenox, anticipate d/c in 24 hours pending ID/podiatry input and wound care teaching. Plan discussed with patient in detail, all questions answered.
--- NOTE | 2017-12-29 15:57 | PN ---
Progress Note (short form) - Note Progress Note: Podiatry brief note: S/p L hallux amputation for acute osteomyelitis. Pathology proximal margins negative for OM, all infected bone removed. Can discharge on PO abx. Local wound care with bactroban ointment + DSD L foot changed 2x/week. Can f/u in wound healing center in 1 week. Okay for discharge. Elder Ybarra DPM
--- NOTE | 2017-12-29 16:03 | PN ---
Teaching Attending Note Name of Resident: Garcia Ballard ATTENDING PHYSICIAN STATEMENT I saw and evaluated the patient. I reviewed the resident's note and discussed the case with the resident. I agree with the resident's findings and plan as documented. SUBJECTIVE: doing well OBJECTIVE: dressing just changed by podiatry- wound is clean CBC, BMP 12/28/17 06:20 12/27/17 07:55 pathology with clean margins ASSESSMENT AND PLAN: s/p amputation first toe 12/24/17 pod #5 can switch to po bactrim 1 po bid and amox 500 tid for 10 days wound care f/u will need diabetes f/u arranged as well please call back if needed
--- NOTE | 2017-12-29 17:41 | PN ---
Physical Exam: SUBJECTIVE: Patient seen and examined. C/o cough, no chills or fever, no chest pain. Still on robitussin and incentive spirometry. Pending margins of bone biopsy. OBJECTIVE: Vital Signs Period Temp Pulse Resp BP Sys/Garner Pulse Ox Last 24 Hr 98.2 F-99.8 F 78-90 16-20 99-141/54-87 96-96 Vital Signs Temp 98.3 F 12/29/17 17:23 Pulse 80 12/29/17 17:23 Resp 18 12/29/17 17:23 BP 137/84 12/29/17 17:23 Pulse Ox 96 12/29/17 09:00 Intake & Output 12/28/17 12/29/17 12/29/17 23:59 11:59 23:59 Intake Total 240 250 500 Output Total 800 1000 Balance -560 250 -500 Intake: IVPB 250 Oral 240 500 Output: Urine 800 1000 Void 800 1000 Other: Voiding Method Urinal Urinal Bowel Movement Yes Yes # Bowel Movements 1 GENERAL: The patient is awake, alert, and fully oriented, in no acute distress. LUNGS: Breath sounds equal, clear to auscultation bilaterally, no wheezes, no crackles HEART: Regular rate and rhythm, S1, S2 without murmur ABDOMEN: Soft, nontender, nondistended, normoactive bowel sounds EXTREMITIES: 2+ pulses, warm, well-perfused, no edema. L great toe amputation stump in dressing. Intact stitches, inner blood stained dressing, not foul smelling. No pain. Able to offload with surgical boot. NEUROLOGICAL: AAO x3. Normal speech, normal strength and tone globally. Laboratory Results - last 24 hr 12/28/17 12/29/17 12/29/17 22:53 06:06 11:12 POC Glucometer 229 203 209 12/29/17 16:53 POC Glucometer 289 Active Medications Generic Name Dose Route Start Last Admin Trade Name Freq PRN Reason Stop Dose Admin Acetaminophen 650 mg 12/23/17 19:24 12/25/17 03:39 Tylenol - PO 650 mg Q4H PRN Administration PAIN LEVEL 1-5 Docusate Sodium 100 mg 12/25/17 14:00 12/29/17 10:10 Colace - PO 100 mg DAILY [facility] Administration Glimepiride 2 mg 12/28/17 07:00 12/29/17 06:07 Amaryl - PO 2 mg DAILY@0700 [facility] Administration Guaifenesin 10 ml 12/29/17 06:10 12/29/17 17:31 Guaifenesin Dm Syrup PO 10 ml Q4H PRN Administration COUGH Heparin Sodium (Porcine) 5,000 unit 12/24/17 02:00 12/29/17 17:04 Heparin - SQ 5,000 unit Q8H-IV [facility] Administration Piperacillin Sod/Tazobactam 50 mls @ 100 mls/hr 12/24/17 21:15 12/29/17 17:03 Sod 3.375 gm/ Dextrose IVPB 100 mls/hr Q8H-IV [facility] Administration Protocol Vancomycin HCl 1,250 mg/ 250 mls @ 166.667 mls/hr 12/28/17 22:00 12/29/17 10: 09 Dextrose IVPB 166.667 mls/hr BID [facility] Administration Protocol Insulin Aspart 1 vial 12/23/17 22:00 12/29/17 16:56 Novolog Vial Sliding Scale - SQ 6 units ACHS [facility] Administration Protocol Lisinopril 5 mg 12/26/17 10:15 12/29/17 10:10 Prinivil PO 5 mg DAILY [facility] Administration Metformin HCl 1,000 mg 12/26/17 16:30 12/29/17 16:57 Glucophage - PO 1,000 mg BID@0700,1630 [facility] Administration Ondansetron HCl 4 mg 12/24/17 15:44 Zofran Injection IVPUSH Q6H PRN NAUSEA AND/OR VOMITING Polyethylene Glycol 17 gm 12/27/17 14:45 12/29/17 10:10 Miralax (For Daily Use) - PO Not Given DAILY [facility] Pathology- viable margins Microbiology 12/24/17 20:45 Foot - Left Gram Stain - Final 12/24/17 20:45 Foot - Left Wound Culture - Final Enterococcus Faecalis 12/23/17 15:50 Blood - Peripheral Venous Blood Culture - Final NO GROWTH AFTER 5 DAYS INCUBATION 12/23/17 15:50 Blood - Peripheral Venous Blood Culture - Final NO GROWTH AFTER 5 DAYS INCUBATION ASSESSMENT/PLAN: Pt is 57 yo M with PMHx of DM non compliant on oral hypoglycemics, presenting with swelling of the L great toe and non healing wound for 4 days. L great toe osteomyelitis: Now s/p L great toe amputation (12/24/17) Continue vanco- 1250mg Cont iv Zosyn 3.375mg Consult wound/vascular- Dr Fish- appreciate recs Consult podiatry- Dr Ybarra- appreciate recs Consult ID- Dr Pike- appreciate recs MRSA- contact isolation Pt may offload with surgical boot putting pressure on heel Incentive spirometry Biopsy results-viable margins D/W ID- may go home on DS bactim 1 tab bid and amox 500mg tid for 10days DM : Sugars in the 100s on sliding scale [id number] BGM ACHS ISS ACHS Lipid profile-wnl Dietitian consult- Pt education UA- no evidence of microalbuminuria Will benefit from yearly ophthalmology visits at D/C Podiatry follow up at D/C Pt now on metformin 1000mg with sliding scale Continue glimepiride 2mg daily HTN: Lisinopril 5mg daily Cough: CXR- No acute pathology Noted postop Maybe related to anesthesia Incentive spirometry Robitussin D Monitor FEN: Oral fluids Monitor lytes Diabetic diet PPx: SQ heparin Dispo: For likely D/C tomorrow after dressing training by nurse and appt set up in Residents clinic Visit type - Emergency Visit Emergency Visit: Yes ED Registration Date: 12/23/17 Care time: The patient presented to the Emergency Department on the above date and was hospitalized for further evaluation of their emergent condition. - New Patient This patient is new to me today: No - Critical Care Critical Care patient: No - Discharge Referral Referred to [facility] No
[2017-12-30] MEDS ORDERED: DEXTROSE 5%-WATER - 50 ML IVPB ONE ×2 (01:54→08:08)
[2017-12-30] MEDS ORDERED: PIPERACILLIN/TAZOBACTAM 3.375 GM VIAL IVPB ONE ×2 (01:54→08:08)
[2017-12-30] MEDS: PIPERACILLIN/TAZOB 3.375 GM 3.375 GM in DEXTROSE 5%-WATER - 50 ML IVPB SCH ×2 (02:18→09:58)
[2017-12-30] MEDS: HEPARIN NA (PORCINE) 5,000 UNITS/ML 1ML VIAL SQ SCH ×2 (02:18→09:59)
[2017-12-30] MEDS: ACETAMINOPHEN 325 MG TABLET (FP) PO PRN (03:18)
[2017-12-30] MEDS: metFORMIN HCL 500 MG TABLET (FP) PO SCH (06:33)
[2017-12-30] MEDS: GLIMEPIRIDE 2 MG TABLET (FP) PO SCH (06:33)
[2017-12-30] MEDS: INSULIN SLIDING SCALE (NOVOLOG) 1 VIAL SQ SCH ×2 (06:34→11:58)
[2017-12-30] MEDS: VANCOMYCIN 1,250 MG in DEXTROSE 5%-WATER - 250 ML IVPB SCH (09:58)
[2017-12-30] MEDS: POLYETHYLENE GLYCOL 3350 119 GM BTL PO SCH (09:59)
[2017-12-30] MEDS: LISINOPRIL 5 MG TABLET (FP) PO SCH (09:59)
[2017-12-30] MEDS: DOCUSATE SODIUM 100 MG CAPSULE (FP) PO SCH (09:59)
[2017-12-30 10:25] VITALS: BP 116/70; PULSE 85; TEMP 98.2
[2017-12-30] MEDS ORDERED: INSULIN (NOVOLOG) ASPART 100 UNITS/ML 10ML VIAL ONE ×2 (11:01→11:55)
--- NOTE | 2017-12-30 14:38 | DS ---
Physical Exam: SUBJECTIVE: Patient seen and examined. No fevers, cough is improved. Pt received training on wound dressing. OBJECTIVE: Vital Signs Period Temp Pulse Resp BP Sys/Garner Pulse Ox Last 24 Hr 98.1 F-98.8 F 76-85 18-18 116-137/70-84 100-100 Vital Signs Temp 98.2 F 12/30/17 09:58 Pulse 85 12/30/17 09:58 Resp 18 12/30/17 09:58 BP 116/70 12/30/17 09:58 Pulse Ox 100 12/30/17 09:00 Intake & Output 12/29/17 12/30/17 12/30/17 23:59 11:59 23:59 Intake Total 1370 50 Output Total 1000 Balance 370 50 Intake: IVPB 600 50 Oral 770 Output: Urine 1000 Void 1000 Other: Voiding Method Urinal Urinal # Unmeasured Voids Void 2 Bowel Movement Yes # Bowel Movements 1 PHYSICAL EXAM GENERAL: The patient is awake, alert, and fully oriented, in no acute distress. LUNGS: Breath sounds equal, clear to auscultation bilaterally. HEART: Regular rate and rhythm, S1, S2 without murmur. ABDOMEN: Soft, nontender, nondistended, normoactive bowel sounds. EXTREMITIES: 2+ pulses, warm, well-perfused, no R pedal edema. L foot dressing intact, clean and dry. NEUROLOGICAL: AAOx3. Normal speech, gait not observed. Laboratory Last Values WBC 8.7 K/mm3 (4.0-10.0) 12/28/17 06:20 RBC 3.94 M/mm3 (4.00-5.60) L 12/28/17 06:20 Hgb 11.4 GM/dL (11.7-16.9) L 12/28/17 06:20 Hct 33.2 % (35.4-49) L 12/28/17 06:20 MCV 84.2 fl (80-96) 12/28/17 06:20 MCH 28.9 pg (25.7-33.7) 12/28/17 06:20 MCHC 34.4 g/dl (32.0-35.9) 12/28/17 06:20 RDW 12.4 % (11.9-15.9) 12/28/17 06:20 Plt Count 351 K/MM3 (134-434) 12/28/17 06:20 MPV 7.9 fl (7.5-11.1) 12/28/17 06:20 Neutrophils % 66.7 % (42.8-82.8) 12/28/17 06:20 Lymphocytes % 23.1 % (8-40) D 12/28/17 06:20 Monocytes % 6.2 % (3.8-10.2) 12/28/17 06:20 Eosinophils % 3.1 % (0-4.5) 12/28/17 06:20 Basophils % 0.9 % (0-2.0) 12/28/17 06:20 Nucleated RBC % 0 % (0-0) 12/28/17 06:20 ESR 79 mm/hr (0-20) H 12/24/17 03:15 PT with INR 11.90 SEC (9.7-13.0) 12/23/17 15:50 INR 1.05 (0.82-1.09) 12/23/17 15:50 Sodium 136 mmol/L (136-145) 12/27/17 07:55 Potassium 4.1 mmol/L (3.5-5.1) 12/27/17 07:55 Chloride 101 mmol/L (98-107) 12/27/17 07:55 Carbon Dioxide 28 mmol/L (21-32) 12/27/17 07:55 Anion Gap 7 (8-16) L 12/27/17 07:55 BUN 10 mg/dL (7-18) 12/27/17 07:55 Creatinine 0.6 mg/dL (0.7-1.3) L 12/27/17 07:55 Creat Clearance w eGFR > 60 (>60) 12/26/17 06:15 POC Glucometer 283 UNITS (80-120) 12/30/17 10:54 Random Glucose 199 mg/dL (74-106) H 12/27/17 07:55 Hemoglobin A1c % 14.2 % (4.8-6.0) H 12/24/17 03:15 Lactic Acid 1.0 mmol/L (0.0-2.0) 12/23/17 18:30 Calcium 8.1 mg/dL (8.5-10.1) L 12/27/17 07:55 Phosphorus 3.9 mg/dL (2.5-4.9) 12/28/17 06:20 Magnesium 2.1 mg/dL (1.8-2.4) 12/28/17 06:20 Total Bilirubin 0.4 mg/dL (0.2-1.0) 12/26/17 06:15 AST 8 U/L (15-37) L 12/26/17 06:15 ALT 10 U/L (12-78) L 12/26/17 06:15 Alkaline Phosphatase 74 U/L (45-117) 12/26/17 06:15 C-Reactive Protein 1.2 MG/DL (0.00-0.3) H 12/24/17 03:15 Total Protein 6.5 g/dl (6.4-8.2) 12/26/17 06:15 Albumin 2.5 g/dl (3.4-5.0) L 12/26/17 06:15 Triglycerides 96 mg/dL (35-160) 12/24/17 03:15 Cholesterol 144 mg/dL (50-200) 12/24/17 03:15 Total LDL Cholesterol 94 mg/dL (5-100) 12/24/17 03:15 HDL Cholesterol 45 mg/dL (40-60) 12/24/17 03:15 Urine Color Ltyellow 12/24/17 11:30 Urine Appearance Clear 12/24/17 11:30 Urine pH 6.0 (5.0-8.0) 12/24/17 11:30 Ur Specific Paige 1.012 (1.001-1.035) 12/24/17 11:30 Urine Protein Negative (NEGATIVE) 12/24/17 11:30 Urine Glucose (UA) 3+ (NEGATIVE) H 12/24/17 11:30 Urine Ketones Negative (NEGATIVE) 12/24/17 11:30 Urine Blood Negative (NEGATIVE) 12/24/17 11:30 Urine Nitrite Negative (NEGATIVE) 12/24/17 11:30 Urine Bilirubin Negative (<2.0 mg/dL) 12/24/17 11:30 Urine Urobilinogen Negative mg/dL (0.2-1.0) 12/24/17 11:30 Ur Leukocyte Esterase Negative (NEGATIVE) 12/24/17 11:30 Random Vancomycin 7.743 ug/ml 12/25/17 10:39 Blood Type O POSITIVE 12/23/17 16:40 Antibody Screen Negative 12/23/17 16:40 LABS Laboratory Results - last 24 hr 12/29/17 12/29/17 12/30/17 16:53 20:35 06:32 POC Glucometer 289 278 168 12/30/17 10:54 POC Glucometer 283 Pathology- viable margins Microbiology 12/24/17 20:45 Foot - Left Gram Stain - Final 12/24/17 20:45 Foot - Left Wound Culture - Final Enterococcus Faecalis 12/23/17 15:50 Blood - Peripheral Venous Blood Culture - Final NO GROWTH AFTER 5 DAYS INCUBATION 12/23/17 15:50 Blood - Peripheral Venous Blood Culture - Final NO GROWTH AFTER 5 DAYS INCUBATION Microbiology 12/29/17 23:35 Stool Clostridium difficile Antigen (VIKY) - Final 12/29/17 23:35 Stool Clostridium difficile Toxin Assay - Final HOSPITAL COURSE: Date of Admission:12/23/17 Date of Discharge: 12/30/17 Pt is 57 yo M with PMHx of DM non compliant on oral hypoglycemics, who presented with swelling of the L great toe and non healing wound for 4 days. Pt was found to have osteomyelitis of L great toe on Xray. Pt had intact pulses , and had L great toe amputation (12/24/17). Pt received vanco- 1250mg, iv Zosyn 3.375mg. He had superficial wound culture that grew MRSA and so was put on contact isolation. The culture from the amputated toe however grew Enterococcus fecalis with viable margins. He is being discharged on DS bactim 1 tab bid and amox 500mg tid for 10days (due to cost) because pt is paying out of pocket. Pt may offload with surgical boot putting pressure on heel. He was trained on dressing - he is to change wound dressing twice a week with bactroban and dry sterile dressing. He will follow up with the wound clinic with Dr Ybarra. He had a cough post op with clear lungs and chest xray, for which he used incentive spirometry and robitussin. He had been non compliant on his DM medications of Metformin and glipizide. [id number]. UA- no evidence of microalbuminuria. He was initally managed on sliding scale and then converted to Metformin and glimepiride (due to cost) to [facility] for dose adjustments as needed. He was newly diagnosed with HTN and was started on Lisinopril 5mg daily His medications were called into [facility] in [place] for discounted prices. Minutes to complete discharge: 40 Discharge Summary Reason For Visit: OSTEOMYELITIS Current Active Problems Amputated toe of left foot (Acute) Osteomyelitis (Acute) Condition: Improved - Instructions Diet, Activity, Other Instructions: You came in with an ulcer of your L great toe The bone was infected and the toe needed to be amputated You received intravenous antibiotics while here We are discharging you on antibiotics by mouth - Tabs bactrim ds twice daily for 10 days Amoxicillin 500mg three times a day for 10days. Please take them as prescribed You should change the dressing on the wound with bactroban ointment + Dry Sterile Dressing of Left foot 2 times a week. Your sugar was very high for diabetes You are started on oral diabetic medications as below and will need follow up with doctor as instructed below Take 1000mg of metformin everyday and 2mg of glimepiride everyday Follow up with your primary care doctor- we have made a call to [phone] to schedule to meet Dr Marti Sotomayor at [address] [place] [address] tomorrow 12/31/17 afternoon at 2.00pm to have your medication dose adjusted as needed You can pay out of pocket for the care in the clinic We started you on medication for your blood pressure- Lisinopril 5mg daily Please take it as prescribed to control your blood pressure and help protect your kidneys Follow with the foot surgeon within on Thursday at the wound center on 5th floor in [facility] at 9am (YOu will need to discuss suture removal on that visit) Follow with an bin worker yearly to evaluate your eyes for complications of diabetes Activity: Partial weight bearing left foot with surgical shoe till further advised by your foot doctor. Diet: Diabetic low salt diet. Drink plenty of fluids while on antibiotics. If you think your symptoms are not improving and you have fever, increased bleeding or foul smell from the amputation site, please return to the nearest emergency room if you notice any new rash, decreased urination, tongue, face or lip swelling or trouble breathing while on antibiotics, call 911 and come to ED Referrals: Marti Sotomayor I, RES [Resident] - 1 Week Curt Arechiga MD [Staff Physician] - 1 Week (Schedule in the clinic under Dr Sotomayor for afternoon) Maxi Ybarra MD [Staff Physician] - 01/05/18 9:00 am (To see Dr House for wound dressing) Disposition: HOME - Home Medications Comprehensive Discharge Medication List: Ambulatory Orders Glimepiride 2 mg PO DAILY #14 tablet 12/28/17 Lisinopril [Prinivil] 5 mg PO DAILY #30 tablet 12/28/17 Metformin HCl [Metformin HCl ER] 1,000 mg PO BID #60 tab.er.24 12/28/17 Amoxicillin - [Amoxicillin 500mg Capsule -] 500 mg PO TID #30 capsule 12/29/17 Sulfamethoxazole/Trimethoprim [Bactrim Ds -] 1 tab PO BID #20 tablet 12/29/17 Mupirocin Ointment [Bactroban 2% Ointment -] 1 applic TP ASDIR #7 tube 12/30/17 This patient is new to me today: No Emergency Visit: Yes ED Registration Date: 12/23/17 Care time: The patient presented to the Emergency Department on the above date and was hospitalized for further evaluation of their emergent condition. Critical Care patient: No - Discharge Referral Referred to [facility] No
--- NOTE | 2017-12-30 14:40 | PN ---
Teaching Attending Note Name of Resident: Marti Sotomayor ATTENDING PHYSICIAN STATEMENT I saw and evaluated the patient. I reviewed the resident's note and discussed the case with the resident. I agree with the resident's findings and plan as documented with exceptions below. SUBJECTIVE: Patient seen and examined. no new concerns, fevers, or chills. OBJECTIVE: Vital Signs Period Temp Pulse Resp BP Sys/Garner Pulse Ox Last 24 Hr 98.1 F-98.8 F 76-85 18-18 116-137/70-84 100-100 Intake & Output 12/27/17 12/28/17 12/29/17 12/30/17 23:59 23:59 23:59 23:59 Intake Total 204 539 8066 50 Output Total 800 1700 1000 Balance 100 -1160 620 50 general: sitting in bed, no acute distress Home Medications Medication Instructions Recorded Glimepiride 2 mg PO DAILY #14 tablet 12/28/17 Lisinopril [Prinivil] 5 mg PO DAILY #30 tablet 12/28/17 Metformin HCl [Metformin HCl ER] 1,000 mg PO BID #60 tab.er.24 12/28/17 Amoxicillin - [Amoxicillin 500mg 500 mg PO TID #30 capsule 12/29/17 Capsule -] Sulfamethoxazole/Trimethoprim 1 tab PO BID #20 tablet 12/29/17 [Bactrim Ds -] Mupirocin Ointment [Bactroban 2% 1 applic TP ASDIR #7 tube 12/30/17 Ointment -] Microbiology 12/29/17 23:35 Stool Clostridium difficile Antigen (VIKY) - Final 12/29/17 23:35 Stool Clostridium difficile Toxin Assay - Final 12/24/17 20:45 Foot - Left Gram Stain - Final 12/24/17 20:45 Foot - Left Wound Culture - Final Enterococcus Faecalis 12/23/17 15:50 Blood - Peripheral Venous Blood Culture - Final NO GROWTH AFTER 5 DAYS INCUBATION 12/23/17 15:50 Blood - Peripheral Venous Blood Culture - Final NO GROWTH AFTER 5 DAYS INCUBATION 12/23/17 16:30 Toe - Left Hallux Gram Stain - Final 12/23/17 16:30 Toe - Left Hallux Wound Culture - Final Enterobacter Aerogenes Enterobacter Aerogenes#2 Proteus Mirabilis Enterococcus Faecalis Mr S Aureus 12/24/17 11:30 Urine - Urine Clean Catch Urine Culture - Final NO GROWTH OBTAINED Surgical pathology report reviewed ASSESSMENT AND PLAN: 57yo M with PMH non compliant DM presented to the ER with non healing ulcer on his L foot 1st toe for over 1 month. 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 wound care teaching provided to patient and family/taoism members at bedside. Medication assistance and resources given. Clinic appointment arranged. Plan for wound care center follow up next week, suture removal to be addressed then. Amoxicillin/bactrim x 10 days Continue home DM/HTN meds d/c home today. Plan discussed with patient in detail, all questions answered.
== END 2017-12-30 16:38 | disposition home or self-care (01) | DRG 314 ==
LOC: JER 12:58 → JERBED 17:09 → J7W 12-24 03:30
PROVIDERS: ADMIT Internal Medicine; ATTEND Hospitalist
PROC: 0QBP0ZX Excision of Left Metatarsal, Open Approach, Diagnostic (ICD-10-PCS; 2017-12-24)
PROC: 0Y6Q0Z0 Detachment at Left 1st Toe, Complete, Open Approach (ICD-10-PCS; principal; 2017-12-24 16:00)
DX: E11.52 Type 2 diabetes mellitus with diabetic peripheral angiopathy with gangrene (principal); I96 Gangrene, not elsewhere classified; E11.69 Type 2 diabetes mellitus with other specified complication; M86.9 Osteomyelitis, unspecified; R00.0 Tachycardia, unspecified; E11.65 Type 2 diabetes mellitus with hyperglycemia; E11.621 Type 2 diabetes mellitus with foot ulcer; L97.528 Non-pressure chronic ulcer of other part of left foot with other specified severity; I10 Essential (primary) hypertension; R05 Cough; Z91.19 Patient's noncompliance with other medical treatment and regimen; A49.02 Methicillin resistant Staphylococcus aureus infection, unspecified site
CPT/HCPCS: 36415; 71045-TC-FY; 73630-TC-LT; 80048; 80053; 80061; 81003; 82962; 83036; 83605; 83721; 83735; 84100; 85025; 85610; 85651; 86140; 86850; 86900; 86901; 87040; 87070; 87086; 87186; 87205; 87324; 87449; 88305-TC; 88311-TC; 93005; 93010; 93971-TC; 94760; 97116-GP; 97161-GP; 99285-25; G0480; J1644; J7030

== ENCOUNTER 2018-01-12 10:33 | Emergency (ER) | payer OTHER ==
[2018-01-12 10:37] VITALS: BP 150/81; PULSE 82; TEMP 97.7; BMI 29.9
[2018-01-12] MEDS ORDERED: DIPHTH,PERTUSS(ACELL),TET 0.5 ML DISP.SYRIN IM ONE (10:51)
--- NOTE | 2018-01-12 10:58 | PDOC ---
History of Present Illness - General Chief Complaint: Tetanus,Booster Stated Complaint: VACCINE (WOUND CARE SENT) Time Seen by Provider: 01/12/18 10:46 History Source: Patient Exam Limitations: No Limitations - History of Present Illness Initial Comments: 01/12/18 10:56 pt sent from wound care for a tetanus vaccine. Severity: mild Past History - Past Medical History Allergies/Adverse Reactions: Allergies Allergy/AdvReac Type Severity Reaction Status Date / Time pantoprazole [From Protonix] AdvReac Severe Verified 01/12/18 10:37 Home Medications: Ambulatory Orders Glimepiride 2 mg PO DAILY #14 tablet 12/28/17 Metformin HCl [Metformin HCl ER] 1,000 mg PO BID #60 tab.er.24 12/28/17 Amlodipine Besylate [Norvasc -] 10 mg PO DAILY #30 tablet 01/08/18 Bacitracin - [Bacitracin Topical Ointment -] 1 applic TP DAILY tube 01/08/18 Polyethylene Glycol 3350 [Miralax 119 gm Btl -] 17 gm PO DAILY #2 bottle Prednisone [Deltasone] 20 mg PO DAILY 7 Days #7 tablet 01/08/18 Sennosides/Docusate Sodium [Pericolace -] 1 tablet PO BID 30 Days #60 tablet Tamsulosin HCl [Flomax -] 0.8 mg PO HS #60 cap.er.24h 01/08/18 COPD: No Diabetes: Yes (NIDDM) Disorders: Yes (constipation) HTN: Yes - Suicide/Smoking/Psychosocial Hx Smoking History: Never smoked Have you smoked in the past 12 months: No If you are a former smoker, when did you quit?: 12 years ago Information on smoking cessation initiated: No Hx Alcohol Use: No Drug/Substance Use Hx: No Substance Use Type: None Hx Substance Use Treatment: No Review of Systems - Review of Systems Able to Perform ROS?: Yes Is the patient limited Montenegrin proficient: No Constitutional: No: Symptoms Reported HEENTM: No: Symptoms Reported Respiratory: No: Symptoms reported Cardiac (ROS): No: Symptoms Reported ABD/GI: No: Symptoms Reported : No: Symptoms Reported Musculoskeletal: No: Symptoms Reported *Physical Exam - Vital Signs Last Vital Signs Temp Pulse Resp BP Pulse Ox 97.7 F 82 18 150/81 98 01/12/18 10:34 01/12/18 10:34 01/12/18 10:34 01/12/18 10:34 01/12/18 10:34 - Physical Exam General Appearance: Yes: Nourished, Appropriately Dressed HEENT: positive: TRAVIS DOUGLAS Medical Decision Making - Medical Decision Making 01/12/18 10:56 cc: here for tetanus vaccine no complaints pt sent from wound care has a note verifying need for tetanus *DC/Admit/Observation/Transfer Diagnosis at time of Disposition: Vaccine for tetanus toxoid - Discharge Dispostion Disposition: HOME Condition at time of disposition: Good - Referrals - Patient Instructions Printed Discharge Instructions: DTaP Vaccine Additional Instructions: you have been given a Tdap vaccine this is good for 10 years - Post Discharge Activity
== END 2018-01-12 11:12 | disposition home or self-care (01) ==
LOC: JERFT 10:33
PROC: 3E0234Z Introduction of Serum, Toxoid and Vaccine into Muscle, Percutaneous Approach (ICD-10-PCS; principal; 2018-01-12)
DX: Z23 Encounter for immunization (principal)
CPT/HCPCS: 90471; 90715; 99281-25; G0463-25

== ENCOUNTER 2018-02-25 19:16 | Inpatient (IN) | payer OTHER ==
--- NOTE | 2018-02-25 19:48 | PDOC ---
Rapid Medical Evaluation Time Seen by Provider: 02/25/18 19:45 Medical Evaluation: Allergies Allergy/AdvReac Type Severity Reaction Status Date / Time pantoprazole [From Protonix] AdvReac Severe Verified 01/12/18 10:37 I have performed a brief in-person evaluation of this patient. The patient presents with a chief complaint of: left sided chest pain since yesterday; sent by clinic Pertinent physical exam findings: none I have ordered the following: labs, EKG, CXR The patient will proceed to the ED for further evaluation. Discharge Disposition - Diagnosis Chest pain - Referrals - Patient Instructions - Post Discharge Activity
[2018-02-25 19:49] VITALS: BMI 28.6
--- NOTE | 2018-02-25 20:13 | PDOC ---
History of Present Illness - General Chief Complaint: Chest Pain Stated Complaint: PCP SENT Time Seen by Provider: 02/25/18 19:45 - History of Present Illness Initial Comments: 02/25/18 20:20 The patient is a 57 year old male with a history of HTN, DM, who presents for evaluation of chest pain. The patient reports a 1 day history of intermittent left sided chest pain. He describes the patient as sharp and notes that it usually resolves on it's own. He states that he was evaluated at an urgent care today who sent him to the ED for further evaluation. He otherwise denies fevers, chills, SOB, nausea, vomiting, abdominal pain, or changes with urination or bowel movements. Past History - Past Medical History Allergies/Adverse Reactions: Allergies Allergy/AdvReac Type Severity Reaction Status Date / Time pantoprazole [From Protonix] AdvReac Severe Verified 01/12/18 10:37 Home Medications: Ambulatory Orders Glimepiride 2 mg PO DAILY #14 tablet 12/28/17 Metformin HCl [Metformin HCl ER] 1,000 mg PO BID #60 tab.er.24 12/28/17 Amlodipine Besylate [Norvasc -] 10 mg PO DAILY #30 tablet 01/08/18 Bacitracin - [Bacitracin Topical Ointment -] 1 applic TP DAILY tube 01/08/18 Polyethylene Glycol 3350 [Miralax 119 gm Btl -] 17 gm PO DAILY #2 bottle Prednisone [Deltasone] 20 mg PO DAILY 7 Days #7 tablet 01/08/18 Sennosides/Docusate Sodium [Pericolace -] 1 tablet PO BID 30 Days #60 tablet Tamsulosin HCl [Flomax -] 0.8 mg PO HS #60 cap.er.24h 01/08/18 COPD: No Diabetes: Yes (NIDDM) Disorders: Yes (constipation) HTN: Yes - Suicide/Smoking/Psychosocial Hx Smoking History: Never smoked Have you smoked in the past 12 months: No If you are a former smoker, when did you quit?: 12 years ago Hx Alcohol Use: No Drug/Substance Use Hx: No Substance Use Type: None Hx Substance Use Treatment: No Review of Systems - Review of Systems Comments:: 02/25/18 20:36 Constitutional: No fevers, chills, fatigue, malaise HEENT: No Rhinorrhea, nasal congestion, visual changes Cardiovascular: Chest pain. No syncope, palpitations, lightheadedness Respiratory: No Cough, SOB, Hemoptysis, Gastrointestinal: No Abdominal pain, Nausea, Vomiting, Constipation, Diarrhea, Melena Genitourinary: No Dysuria, Frequency, Urgency, Hesitancy, Hematuria, Flank pain Musculoskeletal: No Myalgia, arthralgia Skin: No rashes, itching, bruising, pallor Neurologic: No Headache, Dizziness, Numbness, Weakness, or Tingling Psychiatric: No Hallucinations. No SI or HI *Physical Exam - Vital Signs Last Vital Signs Temp Pulse Resp BP Pulse Ox 98.5 F 88 18 132/76 100 02/25/18 19:46 02/25/18 19:46 02/25/18 19:46 02/25/18 19:46 02/25/18 19:46 - Physical Exam Comments: 02/25/18 20:36 General Appearance: Nourished. No Apparent Distress HEENT: No Pharyngeal Erythema, Tonsillar Exudate, Tonsillar Erythema Neck: No Cervical Lymphadenopathy Respiratory/Chest: Lungs Clear, Normal Breath Sounds. No Crackles, Rales, Rhonchi, Wheezing Cardiovascular: Regular Rhythm, Regular Rate. No Murmur, Gallops, Rubs Gastrointestinal/Abdominal: Normal Bowel Sounds, Soft. No Guarding, Rebound, Tenderness Musculoskeletal: No CVA Tenderness Extremity: Normal Capillary Refill Integumentary: Normal Color, Dry, Warm Neurologic: Fully Oriented, Alert, Normal Mood/Affect, Normal Response, Heart Score/ECG Review - History History: Slightly suspicious - Electrocardiogram EKG: Non specific repolarization disturbance - Age Age: 45-65 - Risk Factors Risk Factors Heart Score: Yes Hx Hypercholesterolemia, Yes Hx Hypertension, Yes Hx Diabetes Based on the list above the patient has:: >/=3 risk factors or Hx atherosclerotic disease - Troponin Troponin: </= normal limit - Score Heart Score - Total: 4 #1 ECG reviewed & interpreted by me at: 20:36 General ECG Interpretation: Sinus Rhythm, Normal Rate, Normal Intervals, No acute ischemic changes Compared to previous ECG there are: No significant change (01/02/18) ED Treatment Course - LABORATORY CBC & Chemistry Diagram: 02/25/18 20:06 02/25/18 20:06 Medical Decision Making - Medical Decision Making 02/25/18 20:37 The patient is a 57 year old male with a history of HTN, DM, who presents for evaluation of chest pain. Differential includes but is not limited to: ACS, Pneumonia, Musculoskeletal, Infectious, Metabolic Derangement. Given the patient's history and physical exam, we will obtain a cbc, cmp, troponin, ekg, chest plain film to evaluate further. We will continue to monitor and reassess while here in the ED. 02/25/18 22:26 CBC, cmp, troponin are unremarkable. Chest plain film is unremarkable. However the patient has not had a prior cardiac work up and given his risk factors, we believe he requires observation admission for cardiology evaluation. We discussed the case with the hospitalist team who accepted the patient for admission. *DC/Admit/Observation/Transfer Diagnosis at time of Disposition: Chest pain Qualifiers: Chest pain type: unspecified Qualified Code(s): R07.9 - Chest pain, unspecified - Discharge Dispostion Condition at time of disposition: Stable Decision to Admit order: Yes - Referrals - Patient Instructions - Post Discharge Activity
[2018-02-25 20:18] LABS: BASO % 0.7 % (0-2.0); EOS % 3.8 % (0-4.5); HEMATOCRIT 30.7 % (35.4-49); HEMOGLOBIN 10.4 GM/dL (11.7-16.9); MCH 28.1 pg (25.7-33.7); MCHC 33.8 g/dl (32.0-35.9); MEAN CELL VOLUME 83.2 fl (80-96); MEAN PLT VOLUME 7.6 fl (7.5-11.1); MONO % 6.6 % (3.8-10.2); NEUT % 70.9 % (42.8-82.8); PLATELET COUNT 305 K/MM3 (134-434); RBC 3.69 M/mm3 (4.00-5.60); RDW 13.8 % (11.9-15.9); WHITE BLOOD COUNT 7.2 K/mm3 (4.0-10.0)
[2018-02-25 20:42] LABS: ALBUMIN 3.6 g/dl (3.4-5.0); ANION GAP 10 (8-16); BILIRUBIN,TOTAL 0.3 mg/dL (0.2-1.0); BLOOD UREA NITROGEN 29 mg/dL (7-18); CALCIUM 8.6 mg/dL (8.5-10.1); CHLORIDE 101 mmol/L (98-107); CO2 25 mmol/L (21-32); CREATININE 1.7 mg/dL (0.7-1.3); GLUCOSE,RANDOM 251 mg/dL (74-106); POTASSIUM 4.2 mmol/L (3.5-5.1); SGOT/AST 12 U/L (15-37); SGPT/ALT 17 U/L (12-78); SODIUM 136 mmol/L (136-145); TOT PROT 8.2 g/dl (6.4-8.2)
[2018-02-25 20:45] LABS: ALK PHOS 110 U/L (45-117)
[2018-02-25] MEDS ORDERED: ASPIRIN 81 MG CHEWABLE TABLETS PO ONE (21:02)
--- NOTE | 2018-02-25 21:17 | PN ---
Teaching Attending Note Name of Resident: Damion Do ATTENDING PHYSICIAN STATEMENT I saw and evaluated the patient. I reviewed the resident's note and discussed the case with the resident. I agree with the resident's findings and plan as documented. 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 The patient reports a 1 day history of intermittent left sided chest pain. He describes the patient as sharp and notes that it usually resolves on it's own. He states that he was evaluated at an urgent care today who sent him to the ED for further evaluation. He otherwise denies fevers, chills, SOB, nausea, vomiting, abdominal pain, or changes with urination or bowel movements. OBJECTIVE: Alert and in no distress Vital Signs Period Temp Pulse Resp BP Sys/Garner Pulse Ox Last 24 Hr 98.5 F 88 18 132/76 100 HEENT: No Jaundice, eye redness or discharge, PERRLA, EOMI. Poor dentition - missing a lot of teeth. Normocephalic, atraumatic. External ears are normal and hearing is grossly intact. No nasal discharge. Neck: Supple, nontender. No palpable adenopathy or thyromegaly. No JVD Chest: Good effort. Clear to auscultation and percussion. Heart: Regular. No S3, rub or murmur Abdomen: Not distended, soft, nontender and no HSM. No rebound or guarding. Normoactive bowel sounds. Ext: Peripheral pulses intact. Deformed left arm. Non pitting left leg edema. Left big toe amputation with remnant open wound and discharge. Skin: Warm and dry. No petechiae, rash or ecchymosis. Neuro: Alert. Oriented x3. CN 2-12 grossly intact. Sensation grossly intact in all four extremities and DTR are symmetric. Home Medications Medication Instructions Recorded Glimepiride 2 mg PO DAILY #14 tablet 12/28/17 Metformin HCl [Metformin HCl ER] 1,000 mg PO BID #60 tab.er.24 12/28/17 Amlodipine Besylate [Norvasc -] 10 mg PO DAILY #30 tablet 01/08/18 Bacitracin - [Bacitracin Topical 1 applic TP DAILY tube 01/08/18 Ointment -] Polyethylene Glycol 3350 [Miralax 17 gm PO DAILY #2 bottle 01/08/18 119 gm Btl -] Prednisone [Deltasone] 20 mg PO DAILY 7 Days #7 tablet 01/08/18 Sennosides/Docusate Sodium 1 tablet PO BID 30 Days #60 tablet 01/08/18 [Pericolace -] Tamsulosin HCl [Flomax -] 0.8 mg PO HS #60 cap.er.24h 01/08/18 Abnormal Lab Results 02/25/18 02/25/18 20:06 20:06 RBC 3.69 L Hgb 10.4 L Hct 30.7 L BUN 29 H Creatinine 1.7 H Random Glucose 251 H AST 12 L ASSESSMENT AND PLAN: 1. Chest pain - Has risk factors for ACS but thus far no evidence of ACS. Initial troponin is negative and no new changes of ACS on EKG. Will admit to telemetry as an Observation case to rule out ACS. Get ECHO, fasting lipids and consult cardiology. 2. DM - For now, we will hold the home diabetes drugs and implement sliding scale insulin regimen. Provide comprehensive diabetes care with patient teaching and counseling about the importance of euglycemia, eye care and foot care. 3. 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 Recent bactrim therapy was postulated to have caused JASWINDER several weeks ago. 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 Consult nephrology for comprehensive workup. Avoid nephrotoxic agents such as NSAIDS, aminoglycosides, contrast dyes and certain alternative medicine products. 4. Anemia - Likely multifactorial with a major component of renal anemia. Do basic anemia work up including serial stool guaiacs, reticulocyte count and iron studies. May need Procrit therapy soon once iron replete - to premept blood transfusion in the near future. 5. Left big toe stump wound - Consult Podiatry and do wound culture. Isolation for historical MRSA. 6. DVT prophylaxis - Heparin 5000u sq tid. 7. Advance directives - Full code
[2018-02-25] MEDS ORDERED: ASPIRIN 325 MG TABLET ONE (21:32)
[2018-02-25] MEDS ORDERED: ACETAMINOPHEN 325 MG TABLET (FP) PO PRN (21:38)
[2018-02-25] MEDS ORDERED: SODIUM CHLORIDE 1,000 ML IV SCH (21:45)
--- NOTE | 2018-02-25 21:48 | HP ---
CHIEF COMPLAINT: chest pain PCP: [facility] NEPHRO: Dr. Culver HISTORY OF PRESENT ILLNESS: 57 year old male with a hx of diabetes mellitus, hypertension, bladder outlet obstruction/urinary retention, BPH, s/p L great toe amputation for recent osteomyelitis, and recent acute interstitial nephritis on previous admission presenting to the hospital for 1 day of L sided chest pain. He reports the pain is sharp, localized to his L chest and is non-radiating. Reports that it is intermittent over the past 3 days, starting in the morning and lasting for a period of 10 minutes. He reports that this morning, he had a short, 10 minute episode of chest pain followed by dizziness. Denies getting worse when breathing. Denies exacerbation of the pain on movement. Denies shortness of breath, nausea, vomiting, diarrhea, fevers, chills, abdominal pain. Denies dysuria, urinary retention. Patient states that he has never had a colonoscopy, denies ever getting a workup of his anemia. ER course was notable for: (1) Cre 1.7 (2) EKG NSR, nonspecific ST changes (3) Hgb 10.4 Recent Travel: none given PAST MEDICAL HISTORY: diabetes mellitus, hypertension, bladder outlet obstruction/urinary retention, BPH, s/p L great toe amputation PAST SURGICAL HISTORY: s/p L great toe amputation Social History: Smoking: former smoker of 30 years (1ppd) quit 12 years ago Alcohol: former, quit 12 years ago Drugs: denies Family History: denies family hx of heart disease, stroke, GI cancers or any other cancer, diabetes Allergies pantoprazole [From Protonix] Adverse Reaction (Severe, Verified 01/12/18 10:37) Acute kidney injury-AIN HOME MEDICATIONS: Home Medications Medication Instructions Recorded Glimepiride 2 mg PO DAILY #14 tablet 12/28/17 Metformin HCl [Metformin HCl ER] 1,000 mg PO BID #60 tab.er.24 12/28/17 Amlodipine Besylate [Norvasc -] 10 mg PO DAILY #30 tablet 01/08/18 Bacitracin - [Bacitracin Topical 1 applic TP DAILY tube 01/08/18 Ointment -] Polyethylene Glycol 3350 [Miralax 17 gm PO DAILY #2 bottle 01/08/18 119 gm Btl -] Prednisone [Deltasone] 20 mg PO DAILY 7 Days #7 tablet 01/08/18 Sennosides/Docusate Sodium 1 tablet PO BID 30 Days #60 tablet 01/08/18 [Pericolace -] Tamsulosin HCl [Flomax -] 0.8 mg PO HS #60 cap.er.24h 01/08/18 REVIEW OF SYSTEMS CONSTITUTIONAL: Absent: fever, chills, diaphoresis, generalized weakness, malaise, loss of appetite, weight change HEENT: Absent: rhinorrhea, nasal congestion, throat pain, throat swelling, difficulty swallowing, mouth swelling, ear pain, eye pain, visual changes CARDIOVASCULAR: Absent: chest pain, syncope, palpitations, irregular heart rate, lightheadedness , peripheral edema RESPIRATORY: Absent: cough, shortness of breath, dyspnea with exertion, orthopnea, wheezing, stridor, hemoptysis GASTROINTESTINAL: Absent: abdominal pain, abdominal distension, nausea, vomiting, diarrhea, constipation, melena, hematochezia GENITOURINARY: Absent: dysuria, frequency, urgency, hesitancy, hematuria, flank pain, genital pain MUSCULOSKELETAL: Absent: myalgia, arthralgia, joint swelling, back pain, neck pain SKIN: Absent: rash, itching, pallor HEMATOLOGIC/IMMUNOLOGIC: Absent: easy bleeding, easy bruising, lymphadenopathy, frequent infections ENDOCRINE: Absent: unexplained weight gain, unexplained weight loss, heat intolerance, cold intolerance NEUROLOGIC: Absent: headache, focal weakness or paresthesias, dizziness, unsteady gait, seizure, mental status changes, bladder or bowel incontinence PSYCHIATRIC: Absent: anxiety, depression, suicidal or homicidal ideation, hallucinations. PHYSICAL EXAMINATION Vital Signs - 24 hr 02/25/18 19:46 Temperature 98.5 F Pulse Rate 88 Respiratory 18 Rate Blood Pressure 132/76 O2 Sat by Pulse 100 Oximetry (%) GENERAL: A&Ox3, no acute distress EYES: PERRLA, EOMI, Fundoscopic exam showed some vascular proliferation bilaterally ENT: Moist mucus membranes, poor dentition NECK: No JVD LUNGS: CTA, no wheezes HEART: RRR, no murmurs appreciated ABDOMEN: Soft, nontender, BS present MUSCULOSKELETAL: No CVA Tenderness EXTREMITIES: 2+ pulses, non-pitting edema b/l LE, L arm not able to flex at the elbow due to old "accident", L toe stump has opened slightly and draining trace fluid NEUROLOGICAL: Cranial nerves II-XII intact. Laboratory Results - last 24 hr 02/25/18 02/25/18 20:06 20:06 WBC 7.2 RBC 3.69 L Hgb 10.4 L Hct 30.7 L MCV 83.2 MCH 28.1 MCHC 33.8 RDW 13.8 Plt Count 305 D MPV 7.6 Absolute Neuts (auto) 5.1 Neutrophils % 70.9 Lymphocytes % 18.0 D Monocytes % 6.6 Eosinophils % 3.8 Basophils % 0.7 Nucleated RBC % 0 Sodium 136 Potassium 4.2 Chloride 101 Carbon Dioxide 25 Anion Gap 10 BUN 29 H Creatinine 1.7 H Creat Clearance w eGFR 41.90 Random Glucose 251 H Calcium 8.6 Total Bilirubin 0.3 AST 12 L ALT 17 D Alkaline Phosphatase 110 Creatine Kinase 79 Troponin I < 0.02 Total Protein 8.2 Albumin 3.6 ASSESSMENT/PLAN: 57 year old male with a hx of diabetes mellitus, hypertension, bladder outlet obstruction/urinary retention, BPH, s/p L great toe amputation for recent osteomyelitis, and recent acute interstitial nephritis on previous admission presents for chest pain r/o ACS #Left Sided Chest pain: will rule out ACS based on risk factors and atypical clinical presentation -patient has recurrent chest pain that was never worked up -repeat troponin 2am -repeat EKG -echo ordered -will likely need stress test this admission -Dr. Orellana consulted #Acute Kidney Injury: patient only recently had urinary retention 2/2 BPH -normal saline @ 83cc/hr -monitor BMP -urine lytes -nephro consulted -will need urology followup #Anemia: patient has never been worked up in this hospital for anemia -current anemia is normocytic, normochromic - could be due to anemia of chronic disease vs pure red cell aplasia vs renal disease-associated anemia -could also be GI loss-related -will do iron studies -reticulocyte count ordered -B12 -folate -FOBT to assess for GI bleeding -will need GI followup for colonosocopy to r/o colon cancer #Foot wound: slightly open and draining trace fluid -will consult Dr. Ybarra -dressing changes #Diabetes Mellitus: uncontrolled -for now, insulin sliding scale -blood glucose monitoring ACHS #BPH/Urinary Retention: -restart flomax #Hypertension: currently not hypertensive -will restart meds #FEN -NS @ 83cc/hr -lytes within normal limits -diabetic/sodium/cholesterol diet #Prophylaxis -heparin subq TID 5000U #Disposition -admit obs-tele Visit type - Emergency Visit Emergency Visit: Yes ED Registration Date: 02/25/18 Care time: The patient presented to the Emergency Department on the above date and was hospitalized for further evaluation of their emergent condition. - New Patient This patient is new to me today: Yes Date on this admission: 02/25/18 - Critical Care Critical Care patient: No Hospitalist Screening - Colonoscopy Questionnaire Colonoscopy Questionnaire: Colonoscopy Questionnaire - Patient: 50 - 75 years old and never had a screening colonoscopy: No History of colon or rectal polyps, or CA: Unknown History of IBD, Crohn's disease or UC: Unknown History of abdominal radiation therapy as a child: Unknown - Relative: 1 with colon or rectal CA, or polyps at age 60 or younger: No Colon or rectal CA diagnosed at age 45 or younger: No Multiple relatives with colon or rectal CA: No - Outcome: Screening Result: Negative Screen
--- NOTE | 2018-02-25 22:22 | PDOC ---
Attending Attestation - HPI HPI: 02/25/18 22:24 Je Campa is a 57 year old male with past medical history of DM, HTN, now s/p amputation (12/24) due to L great toe osteomyelitis with gangrene and BPH presents to the emergency department with chest pain. The patient presents with L. anterior chest pain for the past 1 day, non-pleuritic in character, accompanied with lower extremity edema. Denies history of smoking or alcohol use. Denies shortness of breath. Denies numbness, tingling or loss of sensation. The patient was admitted to the ED on 01/02/2018 for acute obstructive uropathy and acute renal failure, was discharged on 01/08/2018. 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 Ybarra. - Physicial Exam PE: 02/25/18 22:25 No acute distress, well appearing, moist mucus membranes, nl conjunctiva; neck supple, no JVD, FROM. lungs clear, RRR, no chest wall tenderness or reproducibility, abdomen soft NTND, warm and well perfused. BROWN x4, no focal neuro deficits. (+) B/l lower extremity 3+ edema. L. Lower extremity calf tenderness. - Medical Decision Making 02/25/18 22:25 Documentation prepared by Melisa Washington, acting as medical physicist for Graciela Trimble MD. <Melisa Washington - Last Filed: 02/25/18 22:24> - Resident Resident Name: Lev Broderick - ED Attending Attestation I have performed the following: I have examined & evaluated the patient, The case was reviewed & discussed with the resident, I agree w/resident's findings & plan, Exceptions are as noted - Medical Decision Making 02/25/18 22:18 A portion of this note was documented by scribe services under my direction. I have reviewed the details of the note, within reason, and agree with the documentation with the following case summary and management plan written by me. Je Campa is a 57 year old male with past medical history of DM, HTN, now s/p amputation (12/24) due to L great toe osteomyelitis with gangrene and BPH presents to the emergency department with left sided chest pain x 1 day, bilateral leg swelling, worse on left and with some calf tenderness. vital signs reviewed, wnl. ordered for D dimer to r/o DVT/VTE, clinically not suspecting acute PE or dissection. sx more concerning for atypical ACS, will given ASA. tylenol for pain control here. Heart Score in moderate risk category as documented, with MACE 12-16%, so will trend trops, tele and admit for SANTIAGO labs including trop neg, EKG with nonspecific TWI and flattening in I, AVL and hyperacute T waves w/o ST segment depressions or elevations, normal intervals and QRS, normal sinus rhythm. CXR wnl, no effusion or cardiomegaly noted Plan: admit for r/o ACS, tele, medical management given atypical and moderate risk chest pain. 02/25/18 22:50 <Graciela Trimble - Last Filed: 02/25/18 22:52> Heart Score/ECG Review - History History: Moderately suspicious - Electrocardiogram EKG: Normal - Age Age: 45-65 - Risk Factors Risk Factors Heart Score: Yes Hx Hypercholesterolemia, Yes Hx Hypertension, Yes Hx Diabetes, Yes Hx Obesity Based on the list above the patient has:: >/=3 risk factors or Hx atherosclerotic disease - Troponin Troponin: </= normal limit - Score Heart Score - Total: 4 - ECG Impressions Comment:: 02/25/18 22:20 EKG with nonspecific TWI and flattening in I, AVL and hyperacute T waves w/o ST segment depressions or elevations, normal intervals and QRS, normal sinus rhythm. <Graciela Trimble - Last Filed: 02/25/18 22:52>
[2018-02-25] MEDS ORDERED: INSULIN REGULAR HUMAN 100 UNITS/ML *VIAL ONE (23:23)
[2018-02-25] MEDS: INSULIN SLIDING SCALE (NOVOLOG) 1 VIAL SQ SCH (23:30)
[2018-02-26] MEDS ORDERED: HEPARIN NA (PORCINE) 5,000 UNITS/ML 1ML VIAL ONE (06:28)
[2018-02-26 06:29] LABS: HEMATOCRIT 30.9 % (35.4-49); HEMOGLOBIN 10.6 GM/dL (11.7-16.9); MCH 28.2 pg (25.7-33.7); MCHC 34.3 g/dl (32.0-35.9); MEAN CELL VOLUME 82.3 fl (80-96); MEAN PLT VOLUME 7.2 fl (7.5-11.1); PLATELET COUNT 275 K/MM3 (134-434); RBC 3.75 M/mm3 (4.00-5.60); RDW 13.8 % (11.9-15.9); WHITE BLOOD COUNT 6.3 K/mm3 (4.0-10.0)
[2018-02-26 07:07] LABS: ANION GAP 8 (8-16); BLOOD UREA NITROGEN 25 mg/dL (7-18); CALCIUM 8.4 mg/dL (8.5-10.1); CHLORIDE 105 mmol/L (98-107); CO2 27 mmol/L (21-32); CREATININE 1.4 mg/dL (0.7-1.3); GLUCOSE,RANDOM 123 mg/dL (74-106); MAGNESIUM 2.2 mg/dL (1.8-2.4); PHOSPHOROUS 4.5 mg/dL (2.5-4.9); POTASSIUM 3.8 mmol/L (3.5-5.1); SODIUM 140 mmol/L (136-145)
[2018-02-26] MEDS: INSULIN SLIDING SCALE (NOVOLOG) 1 VIAL SQ SCH ×3 (07:37→22:18)
[2018-02-26] MEDS: HEPARIN NA (PORCINE) 5,000 UNITS/ML 1ML VIAL SQ SCH ×3 (08:04→21:08)
[2018-02-26 09:02] LABS: URINE APPEARANCE CLEAR; URINE BILIRUBIN NEGATIVE (<2.0 mg/dL); URINE COLOR STRAW; URINE GLUCOSE (UA) NEGATIVE (NEGATIVE); URINE KETONE NEGATIVE (NEGATIVE); URINE LEUK ESTERASE NEGATIVE (NEGATIVE); URINE NITRITE NEGATIVE (NEGATIVE); URINE PROTEIN NEGATIVE (NEGATIVE); URINE UROBILINOGEN NEGATIVE mg/dL (0.2-1.0)
[2018-02-26] MEDS: amLODIPine BESYLATE 10 MG TABLET (FP) PO SCH (10:59)
[2018-02-26] MEDS: POLYETHYLENE GLYCOL 3350 119 GM BTL PO SCH (10:59)
--- NOTE | 2018-02-26 11:29 | CONSULT ---
Consult - text type - Consultation Consultation Note: Renal Consult for JASWINDER/CKD This susan 57 year old gentleman with PMhx of DM, Hypertension, recent JASWINDER secondary to bladder outlet obstruction +/- AIN who presents with complaints of chest pain. CP is left sided, now improved. Denies any sob, abd pain, N/V, palpitations, diaphoresis. Making urine, denies any bladder pain but does have some dysuria. Denies any NSAID use. No blood in urine. Denies any skin rash. flank pain. No Fever, chills. PMHx: as above Allergies: NKDA Family Hx: NC Social Hx: No T/A/D ROS: as per HPI, all other pertinent ros negative Home Medications Medication Instructions Recorded Glimepiride 2 mg PO DAILY #14 tablet 12/28/17 Amlodipine Besylate [Norvasc -] 10 mg PO DAILY #30 tablet 01/08/18 Polyethylene Glycol 3350 [Miralax 17 gm PO DAILY #2 bottle 01/08/18 119 gm Btl -] Tamsulosin HCl [Flomax -] 0.8 mg PO HS #60 cap.er.24h 01/08/18 Vital Signs Temperature 97.6 F 02/26/18 09:01 Pulse Rate 70 02/26/18 09:01 Respiratory Rate 19 02/26/18 09:01 Blood Pressure 162/92 02/26/18 09:01 O2 Sat by Pulse Oximetry (%) 100 02/26/18 09:01 Intake & Output 02/23/18 02/24/18 02/25/18 02/26/18 23:59 23:59 23:59 23:59 Weight 78.018 kg NAD awake and alert neck supple, no JVD MMM RRR, No M/R CTA, no rales or wheeze soft NT/ND no bladder distension No LE edema, clubbing or cyanosis CBC, BMP 02/26/18 06:15 02/26/18 06:15 Current Medications Acetaminophen (Tylenol -) 650 mg PO Q4H PRN PRN Reason: PAIN LEVEL 1-5 Amlodipine Besylate (Norvasc -) 10 mg PO DAILY [facility] Last Admin: 02/26/18 10:59 Dose: 10 mg Heparin Sodium (Porcine) (Heparin -) 5,000 unit SQ TID [facility] Last Admin: 02/26/18 08:04 Dose: 5,000 unit Insulin Aspart (Novolog Vial Sliding Scale -) 0 vial SQ ACHS [facility]; Protocol Last Admin: 02/26/18 07:37 Dose: 2 units Polyethylene Glycol (Miralax (For Daily Use) -) 17 gm PO DAILY [facility] Last Admin: 02/26/18 10:59 Dose: 17 gm Tamsulosin HCl (Flomax -) 0.8 mg PO HS CELESTINO 57 year old gentleman with PMhx of DM, Hypertension, recent JASWINDER secondary to bladder outlet obstruction +/- AIN who presents with complaints of chest pain. CP is left sided, now improved. Denies any sob, abd pain, N/V, palpitations, diaphoresis. Making urine, denies any bladder pain but does have some dysuria. #Chest pain r/o ACS #JASWINDER on CKD #Hypertension #Anemia #DM Type 2 Renal function improved from admission so far and are below levels from discharge US done that time did not show any acute hydronephrosis and examination now show no bladder distension would continue IVF for now as renal function is improving no peripheral eosinophils seen now UA w/o protein or sediment Trend renal function and electrolytes avoid nsaids, aminoglycosides, phosphate based enemas if CTA is warranted it can be done with the understanding that pt has a increased risk of WILLIAM, would continue pre and post hydration if needed continue norvasc, if BP remains > 140/90 would consider addition of BB (i.e Atenolol) would not start JORGE/ARB in the acute setting Thank you Will follow Rufino Rudolph DO
--- NOTE | 2018-02-26 12:16 | ECHO ---
Name: ROCK, EBONIE Exam:Adult Echocardiogram Study Date: 02/26/2018 09:42 AM Age: 57 yrs Reason For Study: R/O ACS Height: 65 in Weight: 172 lb BSA: 1.9 m2 MMode/2D Measurements & Calculations IVSd: 0.92 cm Ao root diam: 2.7 cm LVIDd: 4.9 cm LA dimension: 4.2 cm LVIDs: 3.2 cm LVPWd: 0.91 cm EDV(Teich): 110.7 ml TAPSE: 1.9 cm ESV(Teich): 42.4 ml RV S Hubert: 8.2 cm/sec Doppler Measurements & Calculations MV E max hubert: 45.0 cm/sec MR max hubert: 478.8 cm/sec MV A max hubert: 97.5 cm/sec MR max P.0 mmHg MV E/A: 0.46 TR max hubert: 202.6 cm/sec Med Peak E' Hubert: 2.4 cm/sec TR max P.5 mmHg Med E/e': 18.5 Lat Peak E' Hubert: 5.9 cm/sec Lat E/e': 7.6 Procedure The study was technically adequate with some images being suboptimal in quality. Left Ventricle The left ventricle is normal in size. Left ventricular systolic function is borderline reduced. Grade I diastolic dysfunction, (abnormal relaxation pattern). There is mild inferior wall hypokinesis. Right Ventricle The right ventricle is normal in size and function. Atria The left atrium is mildly dilated. The right atrium is mildly dilated. Mitral Valve There is mild mitral valve thickening. There is mild to moderate mitral regurgitation. Tricuspid Valve The tricuspid valve is not well visualized. There is mild tricuspid regurgitation. Aortic Valve There is mild aortic sclerosis.;. The aortic valve opens well. Trace aortic regurgitation. Pulmonic Valve The pulmonic valve is not well visualized. Trace pulmonic valvular regurgitation. Great Vessels The aortic root is normal size. Pericardium/Pleura There is no pericardial effusion. Interpretation Summary There is no comparison study available. Left ventricular systolic function is borderline reduced. Grade I diastolic dysfunction, (abnormal relaxation pattern). There is mild inferior wall hypokinesis. There is mild to moderate mitral regurgitation. There is mild tricuspid regurgitation. Dequan Marquez MD 02/26/2018 12:15 PM
[2018-02-26] MEDS ORDERED: SODIUM CHLORIDE 1,000 ML IV STA (13:04)
--- NOTE | 2018-02-26 14:05 | CON.CARD ---
Consult Consult Specialty:: Cardiology Referred by:: Jose De Jesus Reason for Consultation:: chest pain - History of Present Illness Chief Complaint: chest pain History of Present Illness: 57M h/o DM, HTN, bladder outlet obstruction p/w chest pain. Intermittent chest pain for 3 days, sharp, left chest. does not radiate. lasts about 10 minutes. had dizziness on morning of admission as well, worse with taking breaths. No dyspnea, nausea, diaphoresis, edema. In the ER noted to have Cr 1.7, Hgb 10.4 ( stable from prior admission), and D-dimer elevated. Lower ext ultrasound negative for DVT. V/Q scan ordered to eval for PE. patient denies any cp currently. no dyspnea palps lightheaded dizzy or other complaints. 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: Yes: Peripheral Neuropathy Gastrointestinal: Yes: Constipation Renal/: Yes: BPH Endocrine: Yes: Diabetes Mellitus - Alcohol/Substance Use Hx Alcohol Use: No - Smoking History Smoking history: Never smoked Have you smoked in the past 12 months: No If you are a former smoker, when did you quit?: 12 years ago Home Medications - Allergies Allergies/Adverse Reactions: Allergies Allergy/AdvReac Type Severity Reaction Status Date / Time pantoprazole [From Protonix] AdvReac Severe Vomiting Verified 02/26/18 04:29 - Home Medications Home Medications: Ambulatory Orders Glimepiride 2 mg PO DAILY #14 tablet 12/28/17 Amlodipine Besylate [Norvasc -] 10 mg PO DAILY #30 tablet 01/08/18 Polyethylene Glycol 3350 [Miralax 119 gm Btl -] 17 gm PO DAILY #2 bottle Tamsulosin HCl [Flomax -] 0.8 mg PO HS #60 cap.er.24h 01/08/18 Furosemide [Lasix -] 40 mg PO DAILY 02/26/18 Hydrochlorothiazide 12.5 mg PO DAILY 02/26/18 Family Disease History - Family Disease History Family History: Unremarkable Review of Systems - Review of Systems Constitutional: reports: No Symptoms Eyes: reports: No Symptoms HENT: reports: No Symptoms Neck: reports: No Symptoms Cardiovascular: reports: Chest Pain Respiratory: reports: No Symptoms Gastrointestinal: reports: No Symptoms Musculoskeletal: reports: No Symptoms Neurological: reports: Dizziness Endocrine: reports: No Symptoms Psychiatric: reports: No Symptoms Vital Signs: Vital Signs Temperature 97.0 F L 02/26/18 13:16 Pulse Rate 81 02/26/18 13:16 Respiratory Rate 18 02/26/18 13:16 Blood Pressure 117/65 02/26/18 13:16 O2 Sat by Pulse Oximetry (%) 95 02/26/18 13:16 Constitutional: Yes: Well Nourished, No Distress, Calm Eyes: Yes: Conjunctiva Clear, EOM Intact HENT: Yes: Atraumatic, Normocephalic Neck: Yes: Supple Respiratory: Yes: Regular, CTA Bilaterally Gastrointestinal: Yes: Normal Bowel Sounds, Soft Cardiovascular: Yes: Regular Rate and Rhythm Heart Sounds: Yes: S1, S2 Edema: No Peripheral Pulses: 2+ Left Doralis Pedis, 2+ Right Dorsalis Pedis Neurological: Yes: Alert, Oriented Psychiatric: Yes: Alert, Oriented - Other Data Labs, Other Data: CBC, BMP 02/26/18 06:15 02/26/18 06:15 Troponin, BNP 02/25/18 02/26/18 20:06 03:45 Troponin I < 0.02 < 0.02 Troponin, BNP 02/25/18 02/26/18 20:06 03:45 Troponin I < 0.02 < 0.02 Assessment/Plan echo 02/26/18 borderline low LV function, grade I diastolic dysfunction, mild to mod MR, mild TR, RV nl size and function, mild hypokinesis of inf wall lower ext dopplers: neg for DVT CXR: no acute process EKG: sinus rhythm, no ischemic changes Tele:sinus, no alarms 57M h/o DM, HTN, bladder outlet obstruction p/w chest pain. Intermittent chest pain for 3 days, sharp, left chest. does not radiate Chest pain - trop neg x 2, chest pain resolved, EKG no ischemic changes. unlikely ACS - d-dimer pos 947, lower ext doppler neg for DVT, V/Q scan ordered given JASWINDER, PE on differential given history of pleuritic chest pain - given age, risk factors, if workup negative for PE would pursue ischemic work up with stress test given age, risk factors and regional wall motion abnormality noted on echo JASWINDER - Cr improving with IV fluids - Renal, Dr. Rudolph consulted HTN - stable on norvasc, continue DM - manage per primary team
--- NOTE | 2018-02-26 15:26 | PN ---
Teaching Attending Note Name of Resident: Maren Colbert ATTENDING PHYSICIAN STATEMENT I saw and evaluated the patient. I reviewed the resident's note and discussed the case with the resident. I agree with the resident's findings and plan as documented with exceptions below. SUBJECTIVE: Patient seen and examined. intermittent chest pain, currently denies, non exertional, lasting about 10 min, relives spontaneously, no exacerbating or relieving factors. Worsening with deep breathing occasionally. no arm/jaw pain, diaphoresis, nausea, vomiting, fevers, chills, cough, recent prolonged travel, famhx of DVT or PE. OBJECTIVE: Vital Signs Period Temp Pulse Resp BP Sys/Garner Pulse Ox Last 24 Hr 97.0 F-98.5 F 70-88 18-19 117-162/65-92 95-100 Intake & Output 02/23/18 02/24/18 02/25/18 02/26/18 23:59 23:59 23:59 23:59 Weight 172 lb General: ambulating in Ed, no acute distress Chest: no chest wall tenderness, CTAB, no rales or wheezing Abdomen:Soft, NT Extremities: Left great toe amputation Active Medications Acetaminophen (Tylenol -) 650 mg PO Q4H PRN PRN Reason: PAIN LEVEL 1-5 Amlodipine Besylate (Norvasc -) 10 mg PO DAILY [facility] Last Admin: 02/26/18 10:59 Dose: 10 mg Heparin Sodium (Porcine) (Heparin -) 5,000 unit SQ TID [facility] Last Admin: 02/26/18 08:04 Dose: 5,000 unit Insulin Aspart (Novolog Vial Sliding Scale -) 0 vial SQ ACHS [facility]; Protocol Last Admin: 02/26/18 07:37 Dose: 2 units Polyethylene Glycol (Miralax (For Daily Use) -) 17 gm PO DAILY [facility] Last Admin: 02/26/18 10:59 Dose: 17 gm Tamsulosin HCl (Flomax -) 0.8 mg PO HS [facility] Laboratory Results - last 24 hr 02/25/18 02/25/18 02/25/18 08:45 20:06 20:06 WBC 7.2 RBC 3.69 L Hgb 10.4 L Hct 30.7 L MCV 83.2 MCH 28.1 MCHC 33.8 RDW 13.8 Plt Count 305 D MPV 7.6 Absolute Neuts (auto) 5.1 Neutrophils % 70.9 Lymphocytes % 18.0 D Monocytes % 6.6 Eosinophils % 3.8 Basophils % 0.7 Nucleated RBC % 0 Retic Count Sodium 136 Potassium 4.2 Chloride 101 Carbon Dioxide 25 Anion Gap 10 BUN 29 H Creatinine 1.7 H Creat Clearance w eGFR 41.90 POC Glucometer Random Glucose 251 H Calcium 8.6 Phosphorus Magnesium Total Bilirubin 0.3 AST 12 L ALT 17 D Alkaline Phosphatase 110 Creatine Kinase 79 Troponin I < 0.02 Total Protein 8.2 Albumin 3.6 Vitamin B12 Serum Folate TSH Urine Color Straw Urine Appearance Clear Urine pH 7.0 D Ur Specific Wesley 1.006 Urine Protein Negative Urine Glucose (UA) Negative Urine Ketones Negative Urine Blood Negative Urine Nitrite Negative Urine Bilirubin Negative Urine Urobilinogen Negative Ur Leukocyte Esterase Negative Stool Occult Blood 02/25/18 02/25/18 02/26/18 22:37 23:20 03:45 WBC RBC Hgb Hct MCV MCH MCHC RDW Plt Count MPV Absolute Neuts (auto) Neutrophils % Lymphocytes % Monocytes % Eosinophils % Basophils % Nucleated RBC % Retic Count Sodium Potassium Chloride Carbon Dioxide Anion Gap BUN Creatinine Creat Clearance w eGFR POC Glucometer 182.77204 Random Glucose Calcium Phosphorus Magnesium Total Bilirubin AST ALT Alkaline Phosphatase Creatine Kinase Troponin I < 0.02 Total Protein Albumin Vitamin B12 Serum Folate TSH Urine Color Urine Appearance Urine pH Ur Specific Wesley Urine Protein Urine Glucose (UA) Urine Ketones Urine Blood Urine Nitrite Urine Bilirubin Urine Urobilinogen Ur Leukocyte Esterase Stool Occult Blood Negative 02/26/18 02/26/18 02/26/18 06:15 06:15 06:15 WBC 6.3 RBC 3.75 L Hgb 10.6 L Hct 30.9 L MCV 82.3 MCH 28.2 MCHC 34.3 RDW 13.8 Plt Count 275 MPV 7.2 L Absolute Neuts (auto) Neutrophils % Lymphocytes % Monocytes % Eosinophils % Basophils % Nucleated RBC % Retic Count Sodium 140 Potassium 3.8 Chloride 105 Carbon Dioxide 27 Anion Gap 8 BUN 25 H Creatinine 1.4 H Creat Clearance w eGFR 52.42 POC Glucometer Random Glucose 123 H D Calcium 8.4 L Phosphorus 4.5 D Magnesium 2.2 Total Bilirubin AST ALT Alkaline Phosphatase Creatine Kinase Troponin I Total Protein Albumin Vitamin B12 345 Serum Folate 14 TSH 2.48 Urine Color Urine Appearance Urine pH Ur Specific Wesley Urine Protein Urine Glucose (UA) Urine Ketones Urine Blood Urine Nitrite Urine Bilirubin Urine Urobilinogen Ur Leukocyte Esterase Stool Occult Blood 02/26/18 02/26/18 06:15 07:34 WBC RBC Hgb Hct MCV MCH MCHC RDW Plt Count MPV Absolute Neuts (auto) Neutrophils % Lymphocytes % Monocytes % Eosinophils % Basophils % Nucleated RBC % Retic Count 1.48 Sodium Potassium Chloride Carbon Dioxide Anion Gap BUN Creatinine Creat Clearance w eGFR POC Glucometer 152.06157 Random Glucose Calcium Phosphorus Magnesium Total Bilirubin AST ALT Alkaline Phosphatase Creatine Kinase Troponin I Total Protein Albumin Vitamin B12 Serum Folate TSH Urine Color Urine Appearance Urine pH Ur Specific Wesley Urine Protein Urine Glucose (UA) Urine Ketones Urine Blood Urine Nitrite Urine Bilirubin Urine Urobilinogen Ur Leukocyte Esterase Stool Occult Blood LE duplex neg for DVT d-dimer report noted ASSESSMENT AND PLAN: 57 yom with PMhx of NIDDM, HTN, L great toe OM/gangrene s/p amputation, recently admitted for JASWINDER felt from Bactrim induced AIN, sent on prednisone comes back with intermittent chest pain for 3 days. -Chest pain -NIDDM -HTN -L great toe OM/gangrene s/p amputation -Recent JASWINDER suspected from bactrim induced AIN Plan; 2D echo noted, some inferior wall hypokinesis, Discussed with Cardiology, needs stress test, to be determined based on clinical course. D-dimer elevated however, non specific in the setting of his known comorbidities. No hypoxia/tachycardia, risk factors for the same. Wells score 0, low probability, unlikely PE as patient improved without treatment. v/q scan ordered, pulmonary consult. Aggressive IVF and monitor renal function. Hold Lasix/HCTZ. Hold glimepiride, ISS,diabetic cardiac diet. DVTPPX heparin Dispo pending cardiac/pulmonary input and clinical course, plan discussed with patient in detail, all questions answered.
[2018-02-26] MEDS ORDERED: INSULIN (NOVOLOG) ASPART 100 UNITS/ML 10ML VIAL ONE (20:29)
[2018-02-26] MEDS: SODIUM CHLORIDE 1,000 ML IV SCH (20:37)
[2018-02-26] MEDS: TAMSULOSIN HCL 0.4 MG CAP.ER.24H (FP) PO SCH (21:08)
--- NOTE | 2018-02-27 00:11 | PN ---
Physical Exam: SUBJECTIVE: Patient seen and examined in the ED. Complains of intermittent chest pain that worsens with deep breaths. Patient seen ambulating without difficulty. Patient was able to speak in full sentences without any SOB. Denies fevers, chills chest pain, SOB, Nausea, vomiting, diarrhea constipation. OBJECTIVE: Vital Signs Period Temp Pulse Resp BP Sys/Garner Pulse Ox Last 24 Hr 97.0 F-98.6 F 70-82 18-20 117-162/65-92 95-100 GENERAL: The patient is awake, alert, and fully oriented, in no acute distress. LUNGS: Breath sounds equal, clear to auscultation bilaterally, no wheezes, no crackles, no accessory muscle use. HEART: Regular rate and rhythm, S1, S2 without murmur ABDOMEN: Soft, nontender, nondistended, normoactive bowel sounds EXTREMITIES: 2+ pulses, no edema Laboratory Results - last 24 hr 02/25/18 02/26/18 02/26/18 08:45 03:45 06:15 WBC 6.3 RBC 3.75 L Hgb 10.6 L Hct 30.9 L MCV 82.3 MCH 28.2 MCHC 34.3 RDW 13.8 Plt Count 275 MPV 7.2 L Retic Count Sodium Potassium Chloride Carbon Dioxide Anion Gap BUN Creatinine Creat Clearance w eGFR POC Glucometer Random Glucose Calcium Phosphorus Magnesium Troponin I < 0.02 Vitamin B12 Serum Folate TSH Urine Color Straw Urine Appearance Clear Urine pH 7.0 D Ur Specific [place] 1.006 Urine Protein Negative Urine Glucose (UA) Negative Urine Ketones Negative Urine Blood Negative Urine Nitrite Negative Urine Bilirubin Negative Urine Urobilinogen Negative Ur Leukocyte Esterase Negative 02/26/18 02/26/18 02/26/18 06:15 06:15 06:15 WBC RBC Hgb Hct MCV MCH MCHC RDW Plt Count MPV Retic Count 1.48 Sodium 140 Potassium 3.8 Chloride 105 Carbon Dioxide 27 Anion Gap 8 BUN 25 H Creatinine 1.4 H Creat Clearance w eGFR 52.42 POC Glucometer Random Glucose 123 H D Calcium 8.4 L Phosphorus 4.5 D Magnesium 2.2 Troponin I Vitamin B12 345 Serum Folate 14 TSH 2.48 Urine Color Urine Appearance Urine pH Ur Specific [place] Urine Protein Urine Glucose (UA) Urine Ketones Urine Blood Urine Nitrite Urine Bilirubin Urine Urobilinogen Ur Leukocyte Esterase 02/26/18 02/26/18 07:34 20:24 WBC RBC Hgb Hct MCV MCH MCHC RDW Plt Count MPV Retic Count Sodium Potassium Chloride Carbon Dioxide Anion Gap BUN Creatinine Creat Clearance w eGFR POC Glucometer [phone] Random Glucose Calcium Phosphorus Magnesium Troponin I Vitamin B12 Serum Folate TSH Urine Color Urine Appearance Urine pH Ur Specific [place] Urine Protein Urine Glucose (UA) Urine Ketones Urine Blood Urine Nitrite Urine Bilirubin Urine Urobilinogen Ur Leukocyte Esterase Active Medications Acetaminophen (Tylenol -) 650 mg PO Q4H PRN PRN Reason: PAIN LEVEL 1-5 Last Admin: 02/26/18 20:26 Dose: 650 mg Amlodipine Besylate (Norvasc -) 10 mg PO DAILY [facility] Last Admin: 02/26/18 10:59 Dose: 10 mg Heparin Sodium (Porcine) (Heparin -) 5,000 unit SQ TID [facility] Last Admin: 02/27/18 05:30 Dose: 5,000 unit Sodium Chloride (Normal Saline -) 1,000 mls @ 100 mls/hr IV ASDIR [facility] Last Admin: 02/26/18 20:37 Dose: 100 mls/hr Insulin Aspart (Novolog Vial Sliding Scale -) 0 vial SQ ACHS [facility]; Protocol Last Admin: 02/26/18 22:18 Dose: 4 units Polyethylene Glycol (Miralax (For Daily Use) -) 17 gm PO DAILY [facility] Last Admin: 02/26/18 10:59 Dose: 17 gm Tamsulosin HCl (Flomax -) 0.8 mg PO HS [facility] Last Admin: 02/26/18 21:08 Dose: 0.8 mg IMAGING: - CXR: No acute chest pathology - DUPLEX US: There is no evidence of deep venous thromboses in both lower extremities. - ECHO: LV systolic function is borderline reduced, Grade 1 diastolic dysfunction, Mild inferior wall hypokinesis, Mild to moderate MR, Mild TR ASSESSMENT/PLAN: 57 y/o M with a PMHx of NIDDM, HTN, bladder outlet obstruction/urinary retention , BPH, s/p L great toe amputation for recent osteomyelitis, and recent acute interstitial nephritis on previous admission 01/08/19 presents with chest pain r/ o ACS 1. Left Sided Chest pain, rule out ACS - Tropnonin < 0.02 x2 - EKG has no ischemic changes - ECHO: LV systolic function is borderline reduced, Grade 1 diastolic dysfunction, Mild inferior wall hypokinesis - Cardiology (Dr. Haq) consulted, appreciate rec's, patient will need stress test - PE Workup: HR 70-82, O2 Sats 95-100%, Elevated D-Dimer, Negative Duplex US, Considering CT Angio, sx's have improved since admission, Pulmonary consult pending 2. JASWINDER - Possibly due to recent urinary retention 2/2 BPH, also consider recent Bactrim use - Continue Normal Saline @ 100 mls/hr IV - Monitor renal function, daily BMP - Hold home dose Lasix, HCTZ - Nephrology (Dr. Rudolph) consulted, Appreciate Rec's, will continue IVF, continue norvasc, consider adding BB, will not start JORGE/ARB 3. HTN - BP: 117-162/65-92 - Currently receiving Normal Saline @ 100 mls/hr IV - Hold home dose Lasix, HCTZ - Continue Norvasc 10 mg PO DAILY 4. Foot wound - Left great toe amputation - Podiatry (Dr. Ybarra) consulted - Continue to monitor 5. NIDDM - Uncontrolled, BG >120 since admission - ISS, BG ACHS 6. BPH/Urinary Retention: - Continue home dose Tamsulosin 0.8 mg PO HS 7. FEN - Normal Saline @ 100 mls/hr IV - Lytes WNL, replete as needed - Diabetic/ Sodium diet 8. PPx - DVT: Heparin SQ TID 5000U Visit type - Emergency Visit Emergency Visit: Yes ED Registration Date: 02/25/18 Care time: The patient presented to the Emergency Department on the above date and was hospitalized for further evaluation of their emergent condition. - New Patient This patient is new to me today: Yes Date on this admission: 02/27/18 - Critical Care Critical Care patient: No
[2018-02-27] MEDS: HEPARIN NA (PORCINE) 5,000 UNITS/ML 1ML VIAL SQ SCH ×3 (05:30→21:49)
[2018-02-27 06:06] LABS: SERUM IRON SATURATION 19 % (15-55); TOTAL IRON BINDING CAPACITY 270 ug/dL (250-450); UIBC 219 ug/dL (111-343)
[2018-02-27 06:52] LABS: EOS % 5.2 % (0-4.5); HEMATOCRIT 29.9 % (35.4-49); HEMOGLOBIN 10.2 GM/dL (11.7-16.9); LYMPH % 23.9 % (8-40); MCH 28.1 pg (25.7-33.7); MCHC 34.1 g/dl (32.0-35.9); MEAN CELL VOLUME 82.4 fl (80-96); MEAN PLT VOLUME 7.6 fl (7.5-11.1); MONO % 6.4 % (3.8-10.2); NEUT % 63.5 % (42.8-82.8); PLATELET COUNT 266 K/MM3 (134-434); RBC 3.63 M/mm3 (4.00-5.60); WHITE BLOOD COUNT 6.3 K/mm3 (4.0-10.0)
[2018-02-27 07:22] LABS: ALBUMIN 2.9 g/dl (3.4-5.0); ANION GAP 8 (8-16); BLOOD UREA NITROGEN 23 mg/dL (7-18); CALCIUM 8.4 mg/dL (8.5-10.1); CHLORIDE 108 mmol/L (98-107); CO2 25 mmol/L (21-32); CREATININE 1.3 mg/dL (0.7-1.3); GLUCOSE,RANDOM 137 mg/dL (74-106); POTASSIUM 4.2 mmol/L (3.5-5.1); SGOT/AST 12 U/L (15-37); SGPT/ALT 14 U/L (12-78); SODIUM 141 mmol/L (136-145)
[2018-02-27 07:27] LABS: ALK PHOS 85 U/L (45-117); BILIRUBIN,TOTAL 0.3 mg/dL (0.2-1.0); CHOLESTEROL 150 mg/dL (50-200); HDL CHOLESTEROL 38 mg/dL (40-60); PHOSPHOROUS 4.3 mg/dL (2.5-4.9); TRIGLYCERIDES 128 mg/dL (35-160)
[2018-02-27] MEDS ORDERED: SODIUM CHLORIDE 1,000 ML IV STA ×2 (09:02→17:48)
--- NOTE | 2018-02-27 09:13 | EKG ---
Test Reason : Blood Pressure : / mmHG Vent. Rate : 082 BPM Atrial Rate : 082 BPM P-R Int : 174 ms QRS Dur : 102 ms QT Int : 366 ms P-R-T Axes : 031 -30 063 degrees QTc Int : 427 ms NORMAL SINUS RHYTHM LEFT AXIS DEVIATION MINIMAL VOLTAGE CRITERIA FOR LVH, MAY BE NORMAL VARIANT NONSPECIFIC T WAVE ABNORMALITY ABNORMAL ECG WHEN COMPARED WITH ECG OF 02-JAN-2018 13:09, T WAVE AMPLITUDE HAS INCREASED IN ANTERIOR LEADS Confirmed by BAKARI KINGSTON, HEMA ([id number]) on 02/27/2018 9:13:31 AM Referred By: Confirmed By:HEMA VILLEGAS MD
[2018-02-27] MEDS: POLYETHYLENE GLYCOL 3350 119 GM BTL PO SCH (09:18)
[2018-02-27] MEDS: amLODIPine BESYLATE 10 MG TABLET (FP) PO SCH (09:18)
--- NOTE | 2018-02-27 11:25 | PN ---
Progress Note, Physician History of Present Illness: No CV events overnight Mild persistent chest pain Tele: NSR 80s - Current Medication List Current Medications: Active Medications Acetaminophen (Tylenol -) 650 mg PO Q4H PRN PRN Reason: PAIN LEVEL 1-5 Last Admin: 02/26/18 20:26 Dose: 650 mg Amlodipine Besylate (Norvasc -) 10 mg PO DAILY [facility] Last Admin: 02/27/18 09:18 Dose: 10 mg Heparin Sodium (Porcine) (Heparin -) 5,000 unit SQ TID [facility] Last Admin: 02/27/18 05:30 Dose: 5,000 unit Sodium Chloride (Normal Saline -) 1,000 mls @ 100 mls/hr IV ASDIR [facility] Last Admin: 02/26/18 20:37 Dose: 100 mls/hr Insulin Aspart (Novolog Vial Sliding Scale -) 0 vial SQ ACHS [facility]; Protocol Last Admin: 02/26/18 22:18 Dose: 4 units Polyethylene Glycol (Miralax (For Daily Use) -) 17 gm PO DAILY [facility] Last Admin: 02/27/18 09:18 Dose: 17 gm Tamsulosin HCl (Flomax -) 0.8 mg PO HS [facility] Last Admin: 02/26/18 21:08 Dose: 0.8 mg - Objective Vital Signs: Vital Signs Temperature 98 F 02/27/18 06:00 Pulse Rate 73 02/27/18 06:00 Respiratory Rate 16 02/27/18 06:00 Blood Pressure 135/81 02/27/18 06:00 O2 Sat by Pulse Oximetry (%) 99 02/26/18 21:00 Constitutional: Yes: Well Nourished, No Distress Eyes: Yes: WNL HENT: Yes: WNL Neck: Yes: WNL Cardiovascular: Yes: Regular Rate and Rhythm Respiratory: Yes: Regular, CTA Bilaterally Gastrointestinal: Yes: Normal Bowel Sounds Musculoskeletal: Yes: WNL Extremities: Yes: WNL Edema: No Labs: CBC, BMP 02/27/18 05:30 02/27/18 05:30 Assessment/Plan 57M h/o DM, HTN, bladder outlet obstruction p/w chest pain. Intermittent chest pain for 3 days, sharp, left chest. does not radiate Chest pain - trop neg x 2, chest pain resolved, EKG no ischemic changes. unlikely ACS - d-dimer pos 947, lower ext doppler neg for DVT - Awaiting V/Q today - given age, risk factors, if workup negative for PE, agree with ischemic work up with stress test given age, risk factors and regional wall motion abnormality noted on echo JASWINDER - Cr improving with IV fluids, Creat 1.3 today - Renal, Dr. Rudolph consulted HTN - stable BP on norvasc, continue DM - manage per primary team
[2018-02-27] MEDS: INSULIN SLIDING SCALE (NOVOLOG) 1 VIAL SQ SCH ×3 (11:37→22:32)
--- NOTE | 2018-02-27 12:05 | PN ---
Physical Exam: SUBJECTIVE: Patient seen and examined OBJECTIVE: Vital Signs Period Temp Pulse Resp BP Sys/Garner Pulse Ox Last 24 Hr 97.0 F-98.6 F 73-84 15-20 117-160/65-92 95-99 GENERAL: The patient is awake, alert, and fully oriented, in no acute distress. HEAD: Normal with no signs of trauma. EYES: PERRL, extraocular movements intact, sclera anicteric, conjunctiva clear. No ptosis. ENT: Ears normal, nares patent, oropharynx clear without exudates, moist mucous membranes. NECK: Trachea midline, full range of motion, supple. LUNGS: Breath sounds equal, clear to auscultation bilaterally, no wheezes, no crackles, no accessory muscle use. HEART: Regular rate and rhythm, S1, S2 without murmur, rub or gallop. ABDOMEN: Soft, nontender, nondistended, normoactive bowel sounds, no guarding, no rebound, no hepatosplenomegaly, no masses. EXTREMITIES: 2+ pulses, warm, well-perfused, no edema. NEUROLOGICAL: Cranial nerves II through XII grossly intact. Normal speech, gait not observed. PSYCH: Normal mood, normal affect. SKIN: Warm, dry, normal turgor, no rashes or lesions noted Laboratory Results - last 24 hr 02/26/18 02/26/18 02/27/18 06:15 20:24 05:28 WBC RBC Hgb Hct MCV MCH MCHC RDW Plt Count MPV Absolute Neuts (auto) Neutrophils % Lymphocytes % Monocytes % Eosinophils % Basophils % Nucleated RBC % Sodium Potassium Chloride Carbon Dioxide Anion Gap BUN Creatinine Creat Clearance w eGFR POC Glucometer 213 155 Random Glucose Calcium Phosphorus Magnesium Iron 51 TIBC 270 Iron Saturation 19 Total Bilirubin AST ALT Alkaline Phosphatase Total Protein Albumin Triglycerides Cholesterol Total LDL Cholesterol HDL Cholesterol 02/27/18 02/27/18 05:30 05:30 WBC 6.3 RBC 3.63 L Hgb 10.2 L Hct 29.9 L MCV 82.4 MCH 28.1 MCHC 34.1 RDW 14.0 Plt Count 266 MPV 7.6 Absolute Neuts (auto) 4.0 Neutrophils % 63.5 Lymphocytes % 23.9 D Monocytes % 6.4 Eosinophils % 5.2 H Basophils % 1.0 Nucleated RBC % 0 Sodium 141 Potassium 4.2 Chloride 108 H Carbon Dioxide 25 Anion Gap 8 BUN 23 H Creatinine 1.3 Creat Clearance w eGFR 57.10 POC Glucometer Random Glucose 137 H Calcium 8.4 L Phosphorus 4.3 Magnesium 2.0 Iron TIBC Iron Saturation Total Bilirubin 0.3 AST 12 L ALT 14 Alkaline Phosphatase 85 D Total Protein 7.0 Albumin 2.9 L Triglycerides 128 D Cholesterol 150 Total LDL Cholesterol 96 HDL Cholesterol 38 L Active Medications Generic Name Dose Route Start Last Admin Trade Name Freq PRN Reason Stop Dose Admin Acetaminophen 650 mg 02/25/18 21:38 02/26/18 20:26 Tylenol - PO 650 mg Q4H PRN Administration PAIN LEVEL 1-5 Amlodipine Besylate 10 mg 02/26/18 10:00 02/27/18 09:18 Norvasc - PO 10 mg DAILY [facility] Administration Heparin Sodium (Porcine) 5,000 unit 02/26/18 06:00 02/27/18 05:30 Heparin - SQ 5,000 unit TID [facility] Administration Sodium Chloride 1,000 mls @ 100 mls/hr 02/26/18 16:15 02/26/18 20:37 Normal Saline - IV 100 mls/hr ASDIR [facility] Administration Insulin Aspart 0 vial 02/25/18 22:00 02/26/18 22:18 Novolog Vial Sliding Scale - SQ 4 units ACHS [facility] Administration Protocol Polyethylene Glycol 17 gm 02/26/18 10:00 02/27/18 09:18 Miralax (For Daily Use) - PO 17 gm DAILY [facility] Administration Tamsulosin HCl 0.8 mg 02/26/18 22:00 02/26/18 21:08 Flomax - PO 0.8 mg HS [facility] Administration CBC, BMP 02/27/18 05:30 02/27/18 05:30 ASSESSMENT/PLAN:
--- NOTE | 2018-02-27 12:55 | PN ---
Progress Note (short form) - Note Progress Note: Renal follow up for JASWINDER Pt seen and examined at the bedside reports some chronic numbness in LE and back pain has mild CP still, no overt sob no fever, chills, N/V/D Vital Signs Temperature 98 F 02/27/18 06:00 Pulse Rate 73 02/27/18 06:00 Respiratory Rate 16 02/27/18 06:00 Blood Pressure 135/81 02/27/18 06:00 O2 Sat by Pulse Oximetry (%) 99 02/26/18 21:00 Intake & Output 02/24/18 02/25/18 02/26/18 02/27/18 23:59 23:59 23:59 23:59 Intake Total 220 1650 Balance 220 1650 Weight 78.018 kg 78.018 kg NAD RRR, No M/R CTA, no rales soft NT/ND No LE edema CBC, BMP 02/27/18 05:30 02/27/18 05:30 Current Medications Acetaminophen (Tylenol -) 650 mg PO Q4H PRN PRN Reason: PAIN LEVEL 1-5 Last Admin: 02/26/18 20:26 Dose: 650 mg Amlodipine Besylate (Norvasc -) 10 mg PO DAILY [facility] Last Admin: 02/27/18 09:18 Dose: 10 mg Heparin Sodium (Porcine) (Heparin -) 5,000 unit SQ TID [facility] Last Admin: 02/27/18 05:30 Dose: 5,000 unit Sodium Chloride (Normal Saline -) 1,000 mls @ 100 mls/hr IV ASDIR [facility] Last Admin: 02/26/18 20:37 Dose: 100 mls/hr Insulin Aspart (Novolog Vial Sliding Scale -) 0 vial SQ ACHS [facility]; Protocol Last Admin: 02/26/18 22:18 Dose: 4 units Polyethylene Glycol (Miralax (For Daily Use) -) 17 gm PO DAILY [facility] Last Admin: 02/27/18 09:18 Dose: 17 gm Tamsulosin HCl (Flomax -) 0.8 mg PO HS [facility] Last Admin: 02/26/18 21:08 Dose: 0.8 mg 57 year old gentleman with PMhx of DM, Hypertension, recent JASWINDER secondary to bladder outlet obstruction +/- AIN who presents with complaints of chest pain. CP is left sided, now improved. Denies any sob, abd pain, N/V, palpitations, diaphoresis. Making urine, denies any bladder pain but does have some dysuria. #Chest pain r/o ACS #JASWINDER on CKD #Hypertension #Anemia #DM Type 2 Renal function now improved to baseline continue IVF as pt is planned to have CTA, would continue IVF for up to 6 hours post contrast exposure trend renal function up to 72 hours post contrast exposure Cardiology follow up Rufino Rudolph DO
--- NOTE | 2018-02-27 13:02 | PN ---
Teaching Attending Note Name of Resident: Ariel Sun ATTENDING PHYSICIAN STATEMENT I saw and evaluated the patient. I reviewed the resident's note and discussed the case with the resident. I agree with the resident's findings and plan as documented with exceptions below. SUBJECTIVE: Patient seen and examined. chest pain improved. No new concerns. OBJECTIVE: Vital Signs Period Temp Pulse Resp BP Sys/Garner Pulse Ox Last 24 Hr 97.0 F-98.6 F 73-84 15-20 117-160/65-92 95-99 Intake & Output 02/24/18 02/25/18 02/26/18 02/27/18 23:59 23:59 23:59 23:59 Intake Total 220 1650 Balance 220 1650 Weight 172 lb 172 lb General: sitting in bed in no acute distress Chest; CTAB, no rales or wheezing, left substernal tenderness CVS;S1s2 regular Abdomen:Soft, NT Extremities: no edema Active Medications Acetaminophen (Tylenol -) 650 mg PO Q4H PRN PRN Reason: PAIN LEVEL 1-5 Last Admin: 02/26/18 20:26 Dose: 650 mg Amlodipine Besylate (Norvasc -) 10 mg PO DAILY [facility] Last Admin: 02/27/18 09:18 Dose: 10 mg Heparin Sodium (Porcine) (Heparin -) 5,000 unit SQ TID [facility] Last Admin: 02/27/18 05:30 Dose: 5,000 unit Sodium Chloride (Normal Saline -) 1,000 mls @ 100 mls/hr IV ASDIR [facility] Last Admin: 02/26/18 20:37 Dose: 100 mls/hr Insulin Aspart (Novolog Vial Sliding Scale -) 0 vial SQ ACHS [facility]; Protocol Last Admin: 02/26/18 22:18 Dose: 4 units Polyethylene Glycol (Miralax (For Daily Use) -) 17 gm PO DAILY [facility] Last Admin: 02/27/18 09:18 Dose: 17 gm Tamsulosin HCl (Flomax -) 0.8 mg PO HS [facility] Last Admin: 02/26/18 21:08 Dose: 0.8 mg Laboratory Results - last 24 hr 02/26/18 02/26/18 02/27/18 06:15 20:24 05:28 WBC RBC Hgb Hct MCV MCH MCHC RDW Plt Count MPV Absolute Neuts (auto) Neutrophils % Lymphocytes % Monocytes % Eosinophils % Basophils % Nucleated RBC % Sodium Potassium Chloride Carbon Dioxide Anion Gap BUN Creatinine Creat Clearance w eGFR POC Glucometer 213 155 Random Glucose Calcium Phosphorus Magnesium Iron 51 TIBC 270 Iron Saturation 19 Total Bilirubin AST ALT Alkaline Phosphatase Total Protein Albumin Triglycerides Cholesterol Total LDL Cholesterol HDL Cholesterol 02/27/18 02/27/18 05:30 05:30 WBC 6.3 RBC 3.63 L Hgb 10.2 L Hct 29.9 L MCV 82.4 MCH 28.1 MCHC 34.1 RDW 14.0 Plt Count 266 MPV 7.6 Absolute Neuts (auto) 4.0 Neutrophils % 63.5 Lymphocytes % 23.9 D Monocytes % 6.4 Eosinophils % 5.2 H Basophils % 1.0 Nucleated RBC % 0 Sodium 141 Potassium 4.2 Chloride 108 H Carbon Dioxide 25 Anion Gap 8 BUN 23 H Creatinine 1.3 Creat Clearance w eGFR 57.10 POC Glucometer Random Glucose 137 H Calcium 8.4 L Phosphorus 4.3 Magnesium 2.0 Iron TIBC Iron Saturation Total Bilirubin 0.3 AST 12 L ALT 14 Alkaline Phosphatase 85 D Total Protein 7.0 Albumin 2.9 L Triglycerides 128 D Cholesterol 150 Total LDL Cholesterol 96 HDL Cholesterol 38 L ASSESSMENT AND PLAN: 57 yom with PMhx of NIDDM, HTN, L great toe OM/gangrene s/p amputation, recently admitted for JASWINDER felt from Bactrim induced AIN, sent on prednisone comes back with intermittent chest pain for 3 days. -Chest pain, with some typical and pleuritic features. -NIDDM -HTN -L great toe OM/gangrene s/p amputation -Recent JASWINDER suspected from bactrim induced AIN, resolved Plan; 2D echo noted, some inferior wall hypokinesis, Discussed with Cardiology, needs stress test, to be determined based on clinical course. D-dimer elevated and pleuritic component to symptoms. JASWINDER resolved. CTA chest. Aggressive hydration around the study. Discussed with nursing. Renal input noted. Hold Lasix/HCTZ. Hold glimepiride, ISS,diabetic cardiac diet. DVTPPX heparin Dispo needs inpatient monitoring with Aggressive IV hydration, monitoring of renal function and additional cardiac testing given ongoing symptoms and high risk for ACS.
--- NOTE | 2018-02-27 14:29 | CONSULT ---
Consult - text type - Consultation Consultation Note: Podiatry Consultation: Pleasant 57 year old M presented for admission with L sided chest pain. S/p L great toe amputation for acute osteomyelitis 12/24/17. Denies F/V/N/C/SOB/CP. Afebrile. PMHx: diabetes mellitus, hypertension, bladder outlet obstruction/urinary retention, BPH, s/p L great toe amputation for recent osteomyelitis Meds: noted ALL: pantoprazole JESSIE: L foot: pedal pulses palpable, TG wnl. Hallux amputation stump small ulcer with mild superficial seropurulent drainage, no soft tissue crepitus, no deep pus, no periwound erythema, no streaking cellulitis, no signs of active infection. Imp: 57 year old DM M s/p L great toe amputation for osteomyelitis 1. Abx per ID 2. Bactroban + DSD L foot daily 3. Rx surgical shoe 4. Appropriate glycemic management discussed with patient 5. Can f/u outpatient. Thank you for the courtesy of this consultation. Elder Ybarra DPM
[2018-02-27] MEDS: GABAPENTIN 100 MG CAPSULE (FP) PO SCH ×2 (16:37→21:44)
[2018-02-27] MEDS: SODIUM CHLORIDE 1,000 ML IV SCH (16:38)
[2018-02-27] MEDS: AMMONIUM LACTATE 12% LOTION 225 GM BOTTLE TP SCH (21:45)
[2018-02-27] MEDS: TAMSULOSIN HCL 0.4 MG CAP.ER.24H (FP) PO SCH (21:47)
[2018-02-28] MEDS: GABAPENTIN 100 MG CAPSULE (FP) PO SCH ×3 (05:54→22:10)
[2018-02-28] MEDS: HEPARIN NA (PORCINE) 5,000 UNITS/ML 1ML VIAL SQ SCH ×3 (05:54→22:13)
[2018-02-28] MEDS: INSULIN SLIDING SCALE (NOVOLOG) 1 VIAL SQ SCH ×4 (06:59→22:11)
[2018-02-28 08:04] LABS: CHLORIDE 106 mmol/L (98-107); POTASSIUM 4.3 mmol/L (3.5-5.1); SODIUM 139 mmol/L (136-145)
[2018-02-28 08:16] LABS: ANION GAP 10 (8-16); BLOOD UREA NITROGEN 19 mg/dL (7-18); CALCIUM 8.7 mg/dL (8.5-10.1); CO2 23 mmol/L (21-32); CREATININE 1.2 mg/dL (0.7-1.3); GLUCOSE,RANDOM 113 mg/dL (74-106); MAGNESIUM 2.1 mg/dL (1.8-2.4); PHOSPHOROUS 4.7 mg/dL (2.5-4.9)
[2018-02-28] MEDS: amLODIPine BESYLATE 10 MG TABLET (FP) PO SCH (09:48)
[2018-02-28] MEDS: POLYETHYLENE GLYCOL 3350 119 GM BTL PO SCH (09:48)
[2018-02-28] MEDS: MUPIROCIN 2% TOPICAL OINTMENT 22 GM TUBE TP SCH (09:49)
[2018-02-28] MEDS: AMMONIUM LACTATE 12% LOTION 225 GM BOTTLE TP SCH ×2 (09:49→22:12)
--- NOTE | 2018-02-28 10:40 | PN ---
Progress Note, Physician History of Present Illness: No Events overnight Tele: NSR 80s with PVC Still with persistent left mild chest pain - Current Medication List Current Medications: Active Medications Acetaminophen (Tylenol -) 650 mg PO Q4H PRN PRN Reason: PAIN LEVEL 1-5 Last Admin: 02/26/18 20:26 Dose: 650 mg Amlodipine Besylate (Norvasc -) 10 mg PO DAILY [facility] Last Admin: 02/28/18 09:48 Dose: 10 mg Gabapentin (Neurontin -) 100 mg PO TID [facility] Last Admin: 02/28/18 05:54 Dose: 100 mg Heparin Sodium (Porcine) (Heparin -) 5,000 unit SQ TID [facility] Last Admin: 02/28/18 05:54 Dose: 5,000 unit Sodium Chloride (Normal Saline -) 1,000 mls @ 100 mls/hr IV ASDIR [facility] Last Admin: 02/27/18 16:38 Dose: 100 mls/hr Insulin Aspart (Novolog Vial Sliding Scale -) 0 vial SQ ACHS [facility]; Protocol Last Admin: 02/28/18 06:59 Dose: Not Given Lactic Acid (Lac-Hydrin 12) 1 applic TP BID [facility] Last Admin: 02/28/18 09:49 Dose: 1 applic Mupirocin (Bactroban 2% Ointment -) 1 applic TP DAILY [facility] Last Admin: 02/28/18 09:49 Dose: 1 applic Polyethylene Glycol (Miralax (For Daily Use) -) 17 gm PO DAILY [facility] Last Admin: 02/28/18 09:48 Dose: 17 gm Tamsulosin HCl (Flomax -) 0.8 mg PO HS [facility] Last Admin: 02/27/18 21:47 Dose: 0.8 mg - Objective Vital Signs: Vital Signs Temperature 98.4 F 02/28/18 05:00 Pulse Rate 85 02/28/18 05:00 Respiratory Rate 18 02/28/18 05:00 Blood Pressure 116/63 02/28/18 05:00 O2 Sat by Pulse Oximetry (%) 99 02/27/18 21:00 Constitutional: Yes: No Distress, Calm Eyes: Yes: WNL HENT: Yes: WNL Neck: Yes: WNL Cardiovascular: Yes: WNL Respiratory: Yes: CTA Bilaterally Gastrointestinal: Yes: Normal Bowel Sounds Musculoskeletal: Yes: WNL Extremities: Yes: Other (Left foot dressing intact) Edema: No Labs: CBC, BMP 02/27/18 05:30 02/28/18 05:30 Assessment/Plan 57M h/o DM, HTN, bladder outlet obstruction p/w chest pain. Intermittent chest pain for 3 days, sharp, left chest. does not radiate Chest pain - trop neg x 2, chest pain resolved, EKG no ischemic changes. unlikely ACS - d-dimer pos 947, lower ext doppler neg for DVT - Chest CTA with no PE - given age, risk factors, if workup negative for PE, agree with ischemic work up with stress test given age, CV risk factors and regional wall motion abnormality noted on echo. Will order for myocardial stress test tomorrow. JASWINDER - Cr improving with IV fluids, Creat 1.2 today - Renal, Dr. Rudolph consulted HTN - stable BP on norvasc, continue DM - manage per primary team
--- NOTE | 2018-02-28 11:59 | PN ---
Physical Exam: SUBJECTIVE: Patient seen and examined, intermittent chest pain, overall better, urinating well, no abdominal or urinary concerns. OBJECTIVE: Vital Signs Period Temp Pulse Resp BP Sys/Garner Pulse Ox Last 24 Hr 97.7 F-98.5 F 70-85 18-18 116-153/63-92 99-99 GENERAL:lying in bed in no acute distress Chest: CTAB, no rales or wheezing Abdomen:Soft, NT, ND, positive bowel sounds Extremities: no edema, left foot dressing Laboratory Results - last 24 hr 02/27/18 02/28/18 02/28/18 22:28 05:30 06:56 Sodium 139 Potassium 4.3 Chloride 106 Carbon Dioxide 23 Anion Gap 10 BUN 19 H Creatinine 1.2 Creat Clearance w eGFR > 60 POC Glucometer 207 128 Random Glucose 113 H Calcium 8.7 Phosphorus 4.7 Magnesium 2.1 Active Medications Generic Name Dose Route Start Last Admin Trade Name Freq PRN Reason Stop Dose Admin Acetaminophen 650 mg 02/25/18 21:38 02/26/18 20:26 Tylenol - PO 650 mg Q4H PRN Administration PAIN LEVEL 1-5 Amlodipine Besylate 10 mg 02/26/18 10:00 02/28/18 09:48 Norvasc - PO 10 mg DAILY [facility] Administration Gabapentin 100 mg 02/27/18 15:00 02/28/18 05:54 Neurontin - PO 100 mg TID CELE[facility]INO Administration Heparin Sodium (Porcine) 5,000 unit 02/26/18 06:00 02/28/18 05:54 Heparin - SQ 5,000 unit TID CELE[facility]INO Administration Sodium Chloride 1,000 mls @ 100 mls/hr 02/26/18 16:15 02/27/18 16:38 Normal Saline - IV 100 mls/hr ASDIR CELE[facility]INO Administration Insulin Aspart 0 vial 02/25/18 22:00 02/28/18 06:59 Novolog Vial Sliding Scale - SQ Not Given ACHS [facility] Protocol Lactic Acid 1 applic 02/27/18 22:00 02/28/18 09:49 Lac-Hydrin 12 TP 1 applic BID [facility]LE[facility]INO Administration Mupirocin 1 applic 02/28/18 10:00 02/28/18 09:49 Bactroban 2% Ointment - TP 1 applic DAILY [facility] Administration Polyethylene Glycol 17 gm 02/26/18 10:00 02/28/18 09:48 Miralax (For Daily Use) - PO 17 gm DAILY [facility] Administration Tamsulosin HCl 0.8 mg 02/26/18 22:00 02/27/18 21:47 Flomax - PO 0.8 mg HS CELESTINO Administration CTA chest - neg for PE, tiny lung nodule ASSESSMENT/PLAN: 57 yom with PMhx of NIDDM, HTN, L great toe OM/gangrene s/p amputation, recently admitted for JASWINDER felt from Bactrim induced AIN, sent on prednisone comes back with intermittent chest pain for 3 days. -Chest pain, with some typical and pleuritic features. -NIDDM -HTN -L great toe OM/gangrene s/p amputation -Recent JASWINDER suspected from bactrim induced AIN, resolved Plan; CTA neg for PE. 2D echo with inferior wall hypokinesis. Stress test in AM. Aggressive hydration, monitor renalfunction. Renal input noted. Hold Lasix/HCTZ. Hold glimepiride, ISS,diabetic cardiac diet. DVTPPX heparin Dispo pending stress test tomorrow Plan discussed with patient and nursing. Visit type - Emergency Visit Emergency Visit: Yes ED Registration Date: 02/27/18 Care time: The patient presented to the Emergency Department on the above date and was hospitalized for further evaluation of their emergent condition. - New Patient This patient is new to me today: No - Critical Care Critical Care patient: No - Discharge Referral Referred to [facility] No
[2018-02-28] MEDS: TAMSULOSIN HCL 0.4 MG CAP.ER.24H (FP) PO SCH (22:10)
[2018-03-01] MEDS: GABAPENTIN 100 MG CAPSULE (FP) PO SCH ×3 (05:15→13:03)
[2018-03-01] MEDS: HEPARIN NA (PORCINE) 5,000 UNITS/ML 1ML VIAL SQ SCH ×2 (05:31→13:03)
[2018-03-01 07:06] LABS: ANION GAP 7 (8-16); BLOOD UREA NITROGEN 22 mg/dL (7-18); CALCIUM 8.7 mg/dL (8.5-10.1); CHLORIDE 108 mmol/L (98-107); CO2 25 mmol/L (21-32); CREATININE 1.2 mg/dL (0.7-1.3); GLUCOSE,RANDOM 135 mg/dL (74-106); PHOSPHOROUS 4.9 mg/dL (2.5-4.9); POTASSIUM 4.5 mmol/L (3.5-5.1); SODIUM 140 mmol/L (136-145)
--- NOTE | 2018-03-01 07:53 | PN ---
Teaching Attending Note Name of Resident: Maren Colbert ATTENDING PHYSICIAN STATEMENT I saw and evaluated the patient. I reviewed the resident's note and discussed the case with the resident. I agree with the resident's findings and plan as documented with exceptions below. SUBJECTIVE: Patient seen and examined. intermittent chest pain, no new complaints. OBJECTIVE: Vital Signs Period Temp Pulse Resp BP Sys/Garner Pulse Ox Last 24 Hr 98.1 F-98.3 F 72-81 18-18 128-153/77-90 99-99 Intake & Output 02/26/18 02/27/18 02/28/18 03/01/18 23:59 23:59 23:59 23:59 Intake Total 220 2250 1160 Balance 220 2250 1160 Weight 172 lb 172 lb General: lying in bed in no acute distress Chest: CTAB, no rales or wheezing, minimal left upper chest wall tenderness, no swelling/erythema or crepitus ABdomen:Soft, NT Extremities: left foot dressing, no surrounding edema or erythema Active Medications Acetaminophen (Tylenol -) 650 mg PO Q4H PRN PRN Reason: PAIN LEVEL 1-5 Last Admin: 02/26/18 20:26 Dose: 650 mg Amlodipine Besylate (Norvasc -) 10 mg PO DAILY [facility] Last Admin: 02/28/18 09:48 Dose: 10 mg Gabapentin (Neurontin -) 100 mg PO TID [facility] Last Admin: 03/01/18 05:15 Dose: Not Given Heparin Sodium (Porcine) (Heparin -) 5,000 unit SQ TID [facility] Last Admin: 03/01/18 05:31 Dose: 5,000 unit Sodium Chloride (Normal Saline -) 1,000 mls @ 100 mls/hr IV ASDIR [facility] Last Admin: 02/27/18 16:38 Dose: 100 mls/hr Insulin Aspart (Novolog Vial Sliding Scale -) 0 vial SQ ACHS [facility]; Protocol Last Admin: 02/28/18 22:11 Dose: 4 units Lactic Acid (Lac-Hydrin 12) 1 applic TP BID [facility] Last Admin: 02/28/18 22:12 Dose: 1 applic Mupirocin (Bactroban 2% Ointment -) 1 applic TP DAILY [facility] Last Admin: 02/28/18 09:49 Dose: 1 applic Polyethylene Glycol (Miralax (For Daily Use) -) 17 gm PO DAILY [facility] Last Admin: 02/28/18 09:48 Dose: 17 gm Tamsulosin HCl (Flomax -) 0.8 mg PO HS [facility] Last Admin: 02/28/18 22:10 Dose: 0.8 mg Laboratory Results - last 24 hr 02/28/18 02/28/18 02/28/18 05:30 16:44 22:07 Sodium 139 Potassium 4.3 Chloride 106 Carbon Dioxide 23 Anion Gap 10 BUN 19 H Creatinine 1.2 Creat Clearance w eGFR > 60 POC Glucometer 207 217 Random Glucose 113 H Calcium 8.7 Phosphorus 4.7 Magnesium 2.1 03/01/18 05:30 Sodium 140 Potassium 4.5 Chloride 108 H Carbon Dioxide 25 Anion Gap 7 L BUN 22 H Creatinine 1.2 Creat Clearance w eGFR > 60 POC Glucometer Random Glucose 135 H Calcium 8.7 Phosphorus 4.9 Magnesium 2.0 stress test results noted. ASSESSMENT AND PLAN: 57 yom with PMhx of NIDDM, HTN, L great toe OM/gangrene s/p amputation, recently admitted for JASWINDER felt from Bactrim induced AIN, sent on prednisone comes back with intermittent chest pain for 3 days. -Chest pain, with some typical and pleuritic features. -NIDDM -HTN -L great toe OM/gangrene s/p amputation -Recent JASWINDER suspected from bactrim induced AIN, resolved Plan; CTA neg for PE. 2D echo with inferior wall hypokinesis. Stress test abnormal, plan for transfer for cardiac cath. ASA/statin. Aggressive hydration for now as planned for cardiac cath, renal function stable. Renal input noted. Hold Lasix/HCTZ. Hold glimepiride, ISS,diabetic cardiac diet. Podiatry input noted, wound care and outpatient follow up. DVTPPX heparin Dispo plan for transfer for cardiac cath. Plan discussed with patient and sister Bettye on phone, all questions answered.
--- NOTE | 2018-03-01 08:53 | PN ---
Progress Note, Physician - Current Medication List Current Medications: Active Medications Acetaminophen (Tylenol -) 650 mg PO Q4H PRN PRN Reason: PAIN LEVEL 1-5 Last Admin: 02/26/18 20:26 Dose: 650 mg Amlodipine Besylate (Norvasc -) 10 mg PO DAILY [facility] Last Admin: 02/28/18 09:48 Dose: 10 mg Gabapentin (Neurontin -) 100 mg PO TID [facility] Last Admin: 03/01/18 05:15 Dose: Not Given Heparin Sodium (Porcine) (Heparin -) 5,000 unit SQ TID [facility] Last Admin: 03/01/18 05:31 Dose: 5,000 unit Sodium Chloride (Normal Saline -) 1,000 mls @ 100 mls/hr IV ASDIR [facility] Last Admin: 02/27/18 16:38 Dose: 100 mls/hr Insulin Aspart (Novolog Vial Sliding Scale -) 0 vial SQ ACHS [facility]; Protocol Last Admin: 02/28/18 22:11 Dose: 4 units Lactic Acid (Lac-Hydrin 12) 1 applic TP BID [facility] Last Admin: 02/28/18 22:12 Dose: 1 applic Mupirocin (Bactroban 2% Ointment -) 1 applic TP DAILY [facility] Last Admin: 02/28/18 09:49 Dose: 1 applic Polyethylene Glycol (Miralax (For Daily Use) -) 17 gm PO DAILY [facility] Last Admin: 02/28/18 09:48 Dose: 17 gm Tamsulosin HCl (Flomax -) 0.8 mg PO HS [facility] Last Admin: 02/28/18 22:10 Dose: 0.8 mg - Objective Vital Signs: Vital Signs Temperature 98.2 F 03/01/18 04:59 Pulse Rate 72 03/01/18 04:59 Respiratory Rate 18 03/01/18 08:13 Blood Pressure 136/77 03/01/18 04:59 O2 Sat by Pulse Oximetry (%) 99 03/01/18 08:13 Labs: CBC, BMP 02/27/18 05:30 03/01/18 05:30 Assessment/Plan echo 02/26/18: borderline low LV function, mild hypokinesis of inf wall. grade I diastolic dysfunction, mild to mod MR, mild TR, RV nl size and function, lower ext dopplers: neg for DVT CXR: no acute process EKG: sinus rhythm, no ischemic changes Tele: 57M h/o DM, HTN, bladder outlet obstruction p/w chest pain. Intermittent chest pain for 3 days, sharp, left chest. does not radiate Chest pain - trop neg x 2, chest pain resolved, EKG no ischemic changes. unlikely ACS - Chest CTA with no PE - given age, risk factors, + RWMA on echo, and absence of alternative explanation for his CP, plan is for nuclear stress test today JASWINDER - Cr improved with IV fluids - Renal, Dr. Rudolph following HTN - frequently running mild-mod elevated - cont amlodipne 10 - add losartan 50 DM - manage per primary team
[2018-03-01] MEDS: MUPIROCIN 2% TOPICAL OINTMENT 22 GM TUBE TP SCH (09:05)
[2018-03-01] MEDS: amLODIPine BESYLATE 10 MG TABLET (FP) PO SCH ×2 (09:06→12:52)
[2018-03-01] MEDS: AMMONIUM LACTATE 12% LOTION 225 GM BOTTLE TP SCH (09:06)
[2018-03-01] MEDS: POLYETHYLENE GLYCOL 3350 119 GM BTL PO SCH (09:06)
[2018-03-01] MEDS ORDERED: LOSARTAN POTASSIUM 50 MG TABLET (FP) PO SCH (10:00)
[2018-03-01] MEDS ORDERED: REGADENOSON 0.4 MG/5 ML PRE-FILLED SYRINGE IVPUSH ONE ×2 (10:30→10:41)
[2018-03-01] MEDS: INSULIN SLIDING SCALE (NOVOLOG) 1 VIAL SQ SCH (11:04)
--- NOTE | 2018-03-01 14:28 | PN ---
Progress Note (short form) - Note Progress Note: has intermittent chest pain on the left side no dyspnea, palps Tele: sinus, 80s-90s, PVC Current Medications Acetaminophen (Tylenol -) 650 mg PO Q4H PRN PRN Reason: PAIN LEVEL 1-5 Last Admin: 02/26/18 20:26 Dose: 650 mg Amlodipine Besylate (Norvasc -) 10 mg PO DAILY [facility] Last Admin: 03/01/18 12:52 Dose: 10 mg Gabapentin (Neurontin -) 100 mg PO TID [facility] Last Admin: 03/01/18 13:03 Dose: 100 mg Heparin Sodium (Porcine) (Heparin -) 5,000 unit SQ TID [facility] Last Admin: 03/01/18 13:03 Dose: Not Given Sodium Chloride (Normal Saline -) 1,000 mls @ 100 mls/hr IV ASDIR [facility] Last Admin: 02/27/18 16:38 Dose: 100 mls/hr Insulin Aspart (Novolog Vial Sliding Scale -) 0 vial SQ ACHS [facility]; Protocol Last Admin: 03/01/18 11:04 Dose: Not Given Lactic Acid (Lac-Hydrin 12) 1 applic TP BID [facility] Last Admin: 03/01/18 09:06 Dose: Not Given Losartan Potassium (Cozaar -) 50 mg PO DAILY [facility] Last Admin: 03/01/18 09:05 Dose: Not Given Mupirocin (Bactroban 2% Ointment -) 1 applic TP DAILY [facility] Last Admin: 03/01/18 09:05 Dose: Not Given Polyethylene Glycol (Miralax (For Daily Use) -) 17 gm PO DAILY [facility] Last Admin: 03/01/18 09:06 Dose: Not Given Tamsulosin HCl (Flomax -) 0.8 mg PO HS [facility] Last Admin: 02/28/18 22:10 Dose: 0.8 mg - Objective Vital Signs: Vital Signs Period Temp Pulse Resp BP Sys/Garner Pulse Ox Last 24 Hr 97.9 F-98.3 F 72-79 18-18 128-151/77-88 99-99 Constitutional: Yes: No Distress, Calm Eyes: Yes: WNL HENT: Yes: WNL Neck: Yes: WNL Cardiovascular: Yes: WNL Respiratory: Yes: CTA Bilaterally Gastrointestinal: Yes: Normal Bowel Sounds Musculoskeletal: Yes: WNL Extremities: Yes: Other (Left foot dressing intact) Edema: No Labs: Nuclear pharm stress 03/01/18 sm to mod zone of inferior wall reversible defect from base to apex consistent with mild intensity ischemia. nl LV function, ef 52% rest, 58% after stress Assessment/Plan 57M h/o DM, HTN, bladder outlet obstruction p/w chest pain. Intermittent chest pain for 3 days, sharp, left chest. does not radiate Chest pain - trop neg x 2, chest pain resolved, EKG no ischemic changes. unlikely ACS - d-dimer pos 947, lower ext doppler neg for DVT, CTA chest neg for PE - nuclear stress test shows inferior wall ischemia, patient continues to have intermittent chest pain - discussed with patient, family member on the phone risks and benefits of cardiac catheterization for further ischemic evaluation, patient agrees to procedure - will transfer to [facility], discussed with accepting physician Dr. Gunner Reed, NPO at midnight with plan for cath tomorrow - start aspirin 81 mg daily, start atorvastatin 40 mg daily JASWINDER - Cr stable - Renal, Dr. Rudolph consulted HTN - stable BP on norvasc, continue DM - manage per primary team
[2018-03-01] MEDS ORDERED: ASPIRIN 81 MG CHEWABLE TABLETS PO SCH (16:15)
[2018-03-01 20:25] VITALS: BP 154/75; PULSE 80; TEMP 98.2
--- NOTE | 2018-03-01 21:40 | PN ---
Physical Exam: SUBJECTIVE: Patient seen and examined this morning at bedside. NPO since midnight. Denies fevers, chills chest pain, SOB, Nausea, vomiting, diarrhea constipation. OBJECTIVE: Vital Signs Period Temp Pulse Resp BP Sys/Garner Pulse Ox Last 24 Hr 97.9 F-98.2 F 72-88 18-20 128-154/75-87 99 GENERAL: The patient is awake, alert, and fully oriented, in no acute distress. NECK: No JVD LUNGS: Breath sounds equal, clear to auscultation bilaterally, no wheezes, no crackles, no accessory muscle use. HEART: Regular rate and rhythm, S1, S2 without murmur ABDOMEN: Soft, nontender, nondistended, normoactive bowel sounds EXTREMITIES: 2+ pulses, no edema Laboratory Results - last 24 hr 02/28/18 03/01/18 03/01/18 22:07 05:30 06:12 Sodium 140 Potassium 4.5 Chloride 108 H Carbon Dioxide 25 Anion Gap 7 L BUN 22 H Creatinine 1.2 Creat Clearance w eGFR > 60 POC Glucometer 217 136 Random Glucose 135 H Calcium 8.7 Phosphorus 4.9 Magnesium 2.0 Active Medications Acetaminophen (Tylenol -) 650 mg PO Q4H PRN PRN Reason: PAIN LEVEL 1-5 Last Admin: 02/26/18 20:26 Dose: 650 mg Amlodipine Besylate (Norvasc -) 10 mg PO DAILY [facility] Last Admin: 03/01/18 12:52 Dose: 10 mg Aspirin (Asa -) 81 mg PO DAILY [facility] Last Admin: 03/01/18 16:22 Dose: 81 mg Atorvastatin Calcium (Lipitor -) 40 mg PO [facility] Gabapentin (Neurontin -) 100 mg PO TID [facility] Last Admin: 03/01/18 13:03 Dose: 100 mg Heparin Sodium (Porcine) (Heparin -) 5,000 unit SQ TID [facility] Last Admin: 03/01/18 13:03 Dose: Not Given Sodium Chloride (Normal Saline -) 1,000 mls @ 100 mls/hr IV ASDIR [facility] Last Admin: 02/27/18 16:38 Dose: 100 mls/hr Insulin Aspart (Novolog Vial Sliding Scale -) 0 vial SQ ACHS [facility]; Protocol Last Admin: 03/01/18 11:04 Dose: Not Given Lactic Acid (Lac-Hydrin 12) 1 applic TP BID [facility] Last Admin: 03/01/18 09:06 Dose: Not Given Losartan Potassium (Cozaar -) 50 mg PO DAILY [facility] Last Admin: 03/01/18 09:05 Dose: Not Given Mupirocin (Bactroban 2% Ointment -) 1 applic TP DAILY [facility] Last Admin: 03/01/18 09:05 Dose: Not Given Polyethylene Glycol (Miralax (For Daily Use) -) 17 gm PO DAILY [facility] Last Admin: 03/01/18 09:06 Dose: Not Given Tamsulosin HCl (Flomax -) 0.8 mg PO HS [facility] Last Admin: 02/28/18 22:10 Dose: 0.8 mg IMAGING: - CXR: No acute chest pathology - DUPLEX US: There is no evidence of deep venous thromboses in both lower extremities. - ECHO: LV systolic function is borderline reduced, Grade 1 diastolic dysfunction, Mild inferior wall hypokinesis, Mild to moderate MR, Mild TR - CTA: There is no evidence of a pulmonary embolus within the main pulmonary artery and its proximal branches, bilaterally normal size and enhancement of the thoracic and included portion of the abdominal aorta. No enlarged mediastinal or hilar lymph nodes are identified. Tiny pulmonary nodule in the right upper lobe, anterior segment and focal area of minimal interstitial thickening and tiny nodularity, posterior segment likely post inflammatory. If clinically concerned a follow-up CT scan of the chest in one year could be obtained for further evaluation - Gated stress pharmacological myoview perfusion scan: Abnormal study, small to moderate zone of inferior reversible defect from base to apex suggest mild intensity ischemia ASSESSMENT/PLAN: 57 y/o M with a PMHx of NIDDM, HTN, bladder outlet obstruction/urinary retention , BPH, s/p L great toe amputation for recent osteomyelitis, and recent acute interstitial nephritis on previous admission 01/08/19 presents with chest pain r/ o ACS 1. Left Sided Chest pain, rule out ACS - Tropnonin < 0.02 x2 - EKG has no ischemic changes - ECHO: LV systolic function is borderline reduced, Grade 1 diastolic dysfunction, Mild inferior wall hypokinesis - Stress test: Abnormal study, small to moderate zone of inferior reversible defect from base to apex suggest mild intensity ischemia - PE Workup: HR 70-82, O2 Sats 95-100%, Elevated D-Dimer, Negative Duplex US, CTA negative, sx's have improved since admission, Pulmonary consult pending - Cardiology (Dr. Haq) consulted, appreciate rec's, patient will be transferred to [facility] for Cardiac catheterization, accepted by Dr. Gunner Reed , NPO at midnight with cath tomorrow, start aspirin 81 mg daily, start atorvastatin 40 mg daily 2. JASWINDER - Possibly due to recent urinary retention 2/2 BPH, also consider recent Bactrim use - Aggressive hydration as Cardiac cath planned for tmrw - Continue Normal Saline @ 100 mls/hr IV - Monitor renal function, daily BMP - Hold home dose Lasix, HCTZ - Nephrology (Dr. Rudolph) consulted, Appreciate Rec's, will continue IVF, continue norvasc, consider adding BB, will not start JORGE/ARB 3. HTN - BP: 128-154/75-87 - Currently receiving Normal Saline @ 100 mls/hr IV - Hold home dose Lasix, HCTZ - Continue Norvasc 10 mg PO DAILY 4. Foot wound - Left great toe amputation - Podiatry (Dr. Ybarra) consulted, Abx per ID, Bactroban + DSD L foot daily, Rx surgical shoe - Continue to monitor 5. NIDDM - Uncontrolled, BG >120 since admission - ISS, BG ACHS 6. BPH/Urinary Retention: - Continue home dose Tamsulosin 0.8 mg PO HS 7. FEN - Normal Saline @ 100 mls/hr IV - Lytes WNL, replete as needed - Diabetic/ Sodium diet 8. PPx - DVT: Heparin SQ TID 5000U Visit type - Emergency Visit Emergency Visit: Yes ED Registration Date: 02/27/18 Care time: The patient presented to the Emergency Department on the above date and was hospitalized for further evaluation of their emergent condition. - New Patient This patient is new to me today: No - Critical Care Critical Care patient: No
[2018-03-01] MEDS ORDERED: ATORVASTATIN CA 40 MG TABLET (FP) PO SCH (22:00)
--- NOTE | 2018-03-02 13:24 | DS ---
Physical Exam: SUBJECTIVE: Patient seen and examined OBJECTIVE: Vital Signs Period Temp Pulse Resp BP Sys/Garner Pulse Ox Last 24 Hr 98.0 F-98.2 F 80-88 18-20 141-154/75-87 PHYSICAL EXAM GENERAL: The patient is awake, alert, and fully oriented, in no acute distress. HEAD: Normal with no signs of trauma. EYES: PERRL, extraocular movements intact, sclera anicteric, conjunctiva clear. ENT: Ears normal, nares patent, oropharynx clear without exudates, moist mucous membranes. NECK: Trachea midline, full range of motion, supple. LUNGS: Breath sounds equal, clear to auscultation bilaterally, no wheezes, no crackles, no accessory muscle use. HEART: Regular rate and rhythm, S1, S2 without murmur, rub or gallop. ABDOMEN: Soft, nontender, nondistended, normoactive bowel sounds, no guarding, no rebound, no hepatosplenomegaly, no masses. EXTREMITIES: 2+ pulses, warm, well-perfused, no edema. NEUROLOGICAL: Cranial nerves II through XII grossly intact. Normal speech, gait not observed. PSYCH: Normal mood, normal affect. SKIN: Warm, dry, normal turgor, no rashes or lesions noted. LABS HOSPITAL COURSE: Date of Admission:02/27/18 Date of Discharge: 03/02/18 Discharge Summary Reason For Visit: CHEST PAIN Condition: Stable - Instructions Diet, Activity, Other Instructions: You presented with chest pain. You were found to have a positive stress test. You will be transferred to [facility] for cardiac catheterization. Please follow up with your primary care physician. It is recommended you have a CT chest in 1 year to follow up for lung nodule. Disposition: TRANSFER ACUTE CARE/OTHER HOSP - Home Medications Comprehensive Discharge Medication List: Ambulatory Orders Glimepiride 2 mg PO DAILY #14 tablet 12/28/17 Amlodipine Besylate [Norvasc -] 10 mg PO DAILY #30 tablet 01/08/18 Polyethylene Glycol 3350 [Miralax 119 gm Btl -] 17 gm PO DAILY #2 bottle Tamsulosin HCl [Flomax -] 0.8 mg PO HS #60 cap.er.24h 01/08/18 Furosemide [Lasix -] 40 mg PO DAILY 02/26/18 Hydrochlorothiazide 12.5 mg PO DAILY 02/26/18 - Discharge Referral Referred to [facility] No
== END 2018-03-01 21:33 | disposition short-term general hospital (02) | DRG 198 ==
LOC: JER 19:16 → JERBED 21:04 → J4W 02-26 12:56 → OBSVTOIN 02-27 11:52
PROVIDERS: ADMIT Internal Medicine; ATTEND Hospitalist
DX: I24.9 Acute ischemic heart disease, unspecified (principal); R07.89 Other chest pain; N17.9 Acute kidney failure, unspecified; D63.1 Anemia in chronic kidney disease; R33.8 Other retention of urine; N40.1 Benign prostatic hyperplasia with lower urinary tract symptoms; K59.00 Constipation, unspecified; R91.1 Solitary pulmonary nodule; R33.9 Retention of urine, unspecified; E11.65 Type 2 diabetes mellitus with hyperglycemia; Z89.422 Acquired absence of other left toe(s); E66.8 Other obesity; Z68.28 Body mass index [BMI] 28.0-28.9, adult; I12.9 Hypertensive chronic kidney disease with stage 1 through stage 4 chronic kidney disease, or unspecified chronic kidney disease; S91.102D Unspecified open wound of left great toe without damage to nail, subsequent encounter; E11.22 Type 2 diabetes mellitus with diabetic chronic kidney disease; N18.9 Chronic kidney disease, unspecified; E11.42 Type 2 diabetes mellitus with diabetic polyneuropathy; E11.622 Type 2 diabetes mellitus with other skin ulcer; L98.498 Non-pressure chronic ulcer of skin of other sites with other specified severity; Z87.891 Personal history of nicotine dependence; Z89.412 Acquired absence of left great toe
CPT/HCPCS: 36415; 71045-TC-FY; 71275-TC; 78452-TC; 80048; 80053; 80061; 81003; 82272; 82550; 82607; 82746; 82962; 83540; 83550; 83721; 83735; 84100; 84443; 84484; 85025; 85027; 85044; 85379; 93005; 93010; 93017; 93306-TC; 93970-TC; 99285-25; A9502; G0378; J1644; J2785; J7030

== ENCOUNTER 2018-03-15 18:19 | Inpatient (IN) | payer OTHER ==
--- NOTE | 2018-03-15 18:27 | PDOC ---
Rapid Medical Evaluation Chief Complaint: Redness To Affected Area Time Seen by Provider: 03/15/18 18:25 Medical Evaluation: Allergies Allergy/AdvReac Type Severity Reaction Status Date / Time pantoprazole [From Protonix] AdvReac Severe Vomiting Verified 03/15/18 18:21 03/15/18 18:26 The patient presents with a chief complaint of: infected left 2nd toe x 1 week. Reports increase in swelling and discoloration, also pain with pulling sensation s/p amputation of great toe same foot one month ago Pertinent physical exam findings: NAD even and unlabored breathing 2nd left toe, discolored with swelling of right foot I have ordered the following: labs, iv access This patient will proceed to the ED for further evaluation.
[2018-03-15 19:14] LABS: BASO % 0.9 % (0-2.0); HEMATOCRIT 28.2 % (35.4-49); HEMOGLOBIN 9.6 GM/dL (11.7-16.9); LYMPH % 12.9 % (8-40); MCH 28.3 pg (25.7-33.7); MEAN PLT VOLUME 7.9 fl (7.5-11.1); MONO % 7.7 % (3.8-10.2); NEUT % 75.5 % (42.8-82.8); PLATELET COUNT 289 K/MM3 (134-434); RDW 13.8 % (11.9-15.9); WHITE BLOOD COUNT 8.5 K/mm3 (4.0-10.0)
[2018-03-15 19:36] LABS: ALBUMIN 3.4 g/dl (3.4-5.0); ALK PHOS 100 U/L (45-117); ANION GAP 11 (8-16); BILIRUBIN,TOTAL 0.4 mg/dL (0.2-1.0); BLOOD UREA NITROGEN 28 mg/dL (7-18); CALCIUM 8.6 mg/dL (8.5-10.1); CHLORIDE 103 mmol/L (98-107); CO2 24 mmol/L (21-32); CREATININE 1.5 mg/dL (0.7-1.3); GLUCOSE,RANDOM 165 mg/dL (74-106); POTASSIUM 4.5 mmol/L (3.5-5.1); SGOT/AST 12 U/L (15-37); SGPT/ALT 19 U/L (12-78); SODIUM 138 mmol/L (136-145); TOT PROT 7.5 g/dl (6.4-8.2)
[2018-03-15 19:46] LABS: INR 1.1 (0.83-1.09); PROTHROMBIN TIME (PATIENT) 12.4 SEC (9.7-13.0)
[2018-03-15 19:49] LABS: ACTIVATED PTT 32.2 SECONDS (25.2-36.5)
--- NOTE | 2018-03-15 20:18 | PDOC ---
Attending Attestation - HPI HPI: The patient is a 57 year old macedonian speaking male with a PMHx of diabetes mellitus, hypertension, bladder outlet obstruction/urinary retention, BPH, s/p L great toe amputation for recent osteomyelitis (12/24/17), and recent acute interstitial nephritis on previous admission 01/08/19 who presents with infected left 2nd toe for approximately 1 week. The patient states that yesterday he noticed that his L second toe had a loose nail and it was draining a clear fluid. He describes his affected toe as wiggly, with a bad odor and filled with pus. He reports increased swelling and discoloration of the right foot. He also notes some associated chest pain that he has had for some time but states it is starting to resolve. <Rosie Gage - Last Filed: 03/15/18 20:43> - Physicial Exam PE: GENERAL: Well-appearing, well-nourished. No apparent distress. HEENT: Normocephalic, atraumatic. PERRL, EOM intact. CARDIOVASCULAR: Normal S1, S2. Regular rate and rhythm. PULMONARY: Clear to auscultation bilaterally. ABDOMEN: Soft, non-distended, non-tender. No CVA tenderness. EXTREMITIES: (+)L second toe erythematous and TTP without nail. Pus filled. (+)1 + b/l LE edema. Mild L calf tenderness. No cyanosis. No clubbing. SKIN: Warm, dry. No rash NEUROLOGICAL: No focal neurological deficits. <Carey Manjarrez - Last Filed: 03/16/18 00:51> - Resident Resident Name: Dequan Whittaker - ED Attending Attestation I have performed the following: I have examined & evaluated the patient, The case was reviewed & discussed with the resident, I agree w/resident's findings & plan, Exceptions are as noted - Medical Decision Making 03/16/18 03:48 Pt was admitted for further evaluation and care <Elfego Rachel - Last Filed: 03/16/18 03:48> Attestations - Attestations Documentation prepared by Carey Manjarrez, acting as medical administrative technician for Elfego Rachel DO. <Carey Manjarrez - Last Filed: 03/16/18 00:51>
--- NOTE | 2018-03-15 20:25 | PDOC ---
History of Present Illness - General Chief Complaint: Redness To Affected Area Stated Complaint: FOOT PAIN Time Seen by Provider: 03/15/18 18:25 History Source: Patient Exam Limitations: Language Barrier (Managed Care Provider #[id number]) - History of Present Illness Initial Comments: 03/15/18 20:23 The patient is a 57M with a PMH of HTN, DM, and recent L great toe amputation who presents to the ER with complaints of a painful/infected toe. The patient states that he noticed yesterday that his L second toe had a loose nail and it was draining a clear fluid. He denies any fevers, chills, nausea, vomiting but admits to swelling and redness around his foot and swelling in his leg. He also complains of dysuria without testicular or back pain. Past History - Past Medical History Allergies/Adverse Reactions: Allergies Allergy/AdvReac Type Severity Reaction Status Date / Time pantoprazole [From Protonix] AdvReac Severe Vomiting Verified 03/15/18 18:21 Home Medications: Ambulatory Orders Glimepiride 2 mg PO DAILY #14 tablet 12/28/17 Amlodipine Besylate [Norvasc -] 10 mg PO DAILY #30 tablet 01/08/18 Polyethylene Glycol 3350 [Miralax 119 gm Btl -] 17 gm PO DAILY #2 bottle Tamsulosin HCl [Flomax -] 0.8 mg PO HS #60 cap.er.24h 01/08/18 Furosemide [Lasix -] 40 mg PO DAILY 02/26/18 Hydrochlorothiazide 12.5 mg PO DAILY 02/26/18 COPD: No Diabetes: Yes Disorders: Yes (constipation) HTN: Yes Hypercholesterolemia: Yes - Surgical History Cardiac Surgery: Yes (angioplasty) - Suicide/Smoking/Psychosocial Hx Smoking History: Never smoked Have you smoked in the past 12 months: No If you are a former smoker, when did you quit?: 12 years ago Hx Alcohol Use: No Drug/Substance Use Hx: No Substance Use Type: None Hx Substance Use Treatment: No Review of Systems - Review of Systems Able to Perform ROS?: Yes Comments:: 03/15/18 21:06 GENERAL/CONSTITUTIONAL: No fever or chills. No weakness. HEAD, EYES, EARS, NOSE AND THROAT: No change in vision. No ear pain or discharge. No sore throat. CARDIOVASCULAR: No chest pain, palpitations, or lightheadedness. RESPIRATORY: No cough, wheezing, shortness of breath, or hemoptysis. GASTROINTESTINAL: No nausea, vomiting, diarrhea, constipation, or abdominal pain. GENITOURINARY: Positive for dysuria. No frequency, hematuria, or change in urination. MUSCULOSKELETAL: No joint or muscle swelling or pain. No neck or back pain. SKIN: Positive for swelling in his L LE and wound over L 2nd toe. NEUROLOGIC: No headache, numbness, tingling, weakness, loss of consciousness, or change in strength/sensation. Is the patient limited Mongolian proficient: No *Physical Exam - Vital Signs Last Vital Signs Temp Pulse Resp BP Pulse Ox 99.2 F 99 H 18 125/79 100 03/15/18 18:23 03/15/18 18:23 03/15/18 18:23 03/15/18 18:23 03/15/18 18:23 - Physical Exam Comments: 03/15/18 21:07 GENERAL: Well developed, well nourished. Awake and alert. No acute distress. HEENT: Normocephalic, atraumatic. Hearing grossly normal. Moist mucous membranes. PERRLA, EOMI. No conjunctival pallor. Sclera are non-icteric. NECK: Supple. Full ROM. CARDIOVASCULAR: Regular rate and rhythm. No murmurs, rubs, or gallops. Distal pulses are 2+ and symmetric. PULMONARY: No evidence of respiratory distress. Lungs clear to auscultation bilaterally. No wheezing, rales or rhonchi. ABDOMINAL: Soft. Non-tender. Non-distended. No rebound or guarding. GENITOURINARY: No CVA tenderness bilaterally. MUSCULOSKELETAL: Normal range of motion at all joints. No bony deformities or tenderness. EXTREMITIES: L second toe erythematous and TTP without nail. Pus filled. No cyanosis. No clubbing. 1+ b/l LE edema. Mild L calf tenderness. SKIN: Warm and dry. Normal capillary refill. No rashes. No jaundice. NEUROLOGICAL: Alert, awake, appropriate. Cranial nerves 2-12 intact. No deficits to light touch and lower extremities. Finger to nose normal bilaterally. Normal speech. Gait is normal without ataxia. PSYCHIATRIC: Cooperative. Good eye contact. Appropriate mood and affect. ED Treatment Course - LABORATORY CBC & Chemistry Diagram: 03/15/18 19:02 03/15/18 19:02 - ADDITIONAL ORDERS Additional order review: Laboratory Results 03/15/18 03/15/18 19:02 19:02 PT with INR 12.40 INR 1.10 H PTT (Actin FS) 32.2 Sodium 138 Potassium 4.5 Chloride 103 Carbon Dioxide 24 Anion Gap 11 BUN 28 H Creatinine 1.5 H Creat Clearance w eGFR 48.41 Random Glucose 165 H D Calcium 8.6 Total Bilirubin 0.4 AST 12 L ALT 19 D Alkaline Phosphatase 100 D Total Protein 7.5 Albumin 3.4 03/15/18 19:02 RBC 3.40 L MCV 83.0 MCHC 34.0 RDW 13.8 MPV 7.9 Neutrophils % 75.5 Lymphocytes % 12.9 D Monocytes % 7.7 Eosinophils % 3.0 Basophils % 0.9 - RADIOLOGY Radiology Studies Ordered: Category Date Time Status FOOT-LEFT [RAD] Stat Radiology 03/15/18 20:19 Ordered DUPLEX VASCUL US-1 LEG [US] Stat Ultrasound 03/15/18 20:19 Ordered Medical Decision Making - Medical Decision Making 03/15/18 21:08 The patient is a 57M with a PMH of HTN, DM, and 1.5 week ago L great toe amputation. His L second toe looks infected but he has some calf tenderness in his L foot. He denies SOB. Will obtain U/S, blood cx, and other labs with XR of foot. Will give broad spectrum abx. He will likely require admission for abx and evaluation of toe. Cr increased by 0.3 to 1.5, so JASWINDER is also new. Pending labs and imaging. 03/15/18 23:25 US negative for DVT. UA negative for UTI. Hospitalist microblogged for admission. 03/16/18 00:00 I have endorsed the patient for admission to Dr. Hernandez. *DC/Admit/Observation/Transfer Diagnosis at time of Disposition: Amputated toe of left foot, Acute renal insufficiency, Diabetic infection of left foot - Discharge Dispostion Condition at time of disposition: Guarded Decision to Admit order: Yes - Referrals - Patient Instructions - Post Discharge Activity
[2018-03-15] MEDS ORDERED: PIPERACILLIN/TAZOB 3.375 GM 3.375 GM in DEXTROSE 5%-WATER - 50 ML IVPB ONE (20:26)
[2018-03-15] MEDS ORDERED: VANCOMYCIN 1,000 MG in DEXTROSE 5%-WATER - 250 ML IVPB ONE (20:26)
[2018-03-15 21:51] LABS: URINE APPEARANCE CLEAR; URINE BILIRUBIN NEGATIVE (<2.0 mg/dL); URINE COLOR STRAW; URINE GLUCOSE (UA) 1+ (NEGATIVE); URINE KETONE NEGATIVE (NEGATIVE); URINE LEUK ESTERASE NEGATIVE (NEGATIVE); URINE NITRITE NEGATIVE (NEGATIVE); URINE PROTEIN NEGATIVE (NEGATIVE); URINE UROBILINOGEN NEGATIVE mg/dL (0.2-1.0)
[2018-03-15] MEDS ORDERED: VANCOMYCIN 1 GRAM (PRE-DOCKED) 1,000 MG/250 ML BAG IVPB ONE (23:10)
[2018-03-15] MEDS ORDERED: PIPERACILLIN/TAZOB 3.375 GM 3.375 GM/50 ML BAG IVPB ONE (23:10)
[2018-03-16] MEDS ORDERED: SODIUM CHLORIDE 0.9% 1000 ML INFUS.BAG IV ONE (00:02)
--- NOTE | 2018-03-16 01:26 | HP ---
CHIEF COMPLAINT:left toe pain and swelling PCP: HISTORY OF PRESENT ILLNESS: Patient is a 57 year old male with past medical history of HTN, DM and s/p left great toe amputation (12/2017), presented with painful left second toe. Patient noted swelling of left calf and left foot that started 2 days ago. Yesterday, he noted loose nail of the left second toe, was painful and draining malodorous fluid, with swelling and redness around the toe. Patient took Bactrim and Amoxicillin. He denies fevers, chills, nausea, vomiting, chest pain, SOB, palpitations, abdominal pain, dysuria. ER course was notable for: (1)BUN 28 Cr 1.5 (2)Xray of left foot showed moderate soft tissue swelling over dorsal aspect of left foot, and mild interval irregularity at site of amputation (3)Glu 165 Recent Travel:denies any recent travel PAST MEDICAL HISTORY: Hypertension DM PAST SURGICAL HISTORY: Left great toe amputation (12/2017) Social History: Smoking:previous smoker, 1PPD x30 years, quit 12 years ago Alcohol:former drinker, quit 12 years ago Drugs: denies illicit drug use Family History: noncontributory Allergies pantoprazole [From Protonix] Adverse Reaction (Severe, Verified 03/15/18 18:21) Vomiting Acute kidney injury-AIN HOME MEDICATIONS: Home Medications Medication Instructions Recorded Glimepiride 2 mg PO DAILY #14 tablet 12/28/17 Amlodipine Besylate [Norvasc -] 10 mg PO DAILY #30 tablet 01/08/18 Polyethylene Glycol 3350 [Miralax 17 gm PO DAILY #2 bottle 01/08/18 119 gm Btl -] Tamsulosin HCl [Flomax -] 0.8 mg PO HS #60 cap.er.24h 01/08/18 Furosemide [Lasix -] 40 mg PO DAILY 02/26/18 Hydrochlorothiazide 12.5 mg PO DAILY 02/26/18 REVIEW OF SYSTEMS CONSTITUTIONAL: Absent: fever, chills, diaphoresis, generalized weakness, malaise, loss of appetite, weight change HEENT: Absent: rhinorrhea, nasal congestion, throat pain, throat swelling, difficulty swallowing, mouth swelling, ear pain, eye pain, visual changes CARDIOVASCULAR: Absent: chest pain, syncope, palpitations, irregular heart rate, lightheadedness , peripheral edema RESPIRATORY: Absent: cough, shortness of breath, dyspnea with exertion, orthopnea, wheezing, stridor, hemoptysis GASTROINTESTINAL: Absent: abdominal pain, abdominal distension, nausea, vomiting, diarrhea, constipation, melena, hematochezia GENITOURINARY: Absent: dysuria, frequency, urgency, hesitancy, hematuria, flank pain, genital pain MUSCULOSKELETAL: Absent: myalgia, arthralgia, joint swelling, back pain, neck pain SKIN: Absent: rash, itching, pallor HEMATOLOGIC/IMMUNOLOGIC: Absent: easy bleeding, easy bruising, lymphadenopathy, frequent infections ENDOCRINE: Absent: unexplained weight gain, unexplained weight loss, heat intolerance, cold intolerance NEUROLOGIC: Absent: headache, focal weakness or paresthesias, dizziness, unsteady gait, seizure, mental status changes, bladder or bowel incontinence PSYCHIATRIC: Absent: anxiety, depression, suicidal or homicidal ideation, hallucinations. PHYSICAL EXAMINATION Vital Signs - 24 hr 03/15/18 18:23 Temperature 99.2 F Pulse Rate 99 H Respiratory 18 Rate Blood Pressure 125/79 O2 Sat by Pulse 100 Oximetry (%) GENERAL: Awake, alert, and fully oriented, in no acute distress. HEAD: Normal with no signs of trauma. EYES: PERRLA, EOMI, sclera anicteric, conjunctiva clear. No lid lag. EARS, NOSE, THROAT: Ears normal, nares patent, oropharynx clear without exudates. Moist mucous membranes. NECK: Normal range of motion, supple without lymphadenopathy, JVD, or masses. LUNGS: Breath sounds equal, clear to auscultation bilaterally. HEART: Regular rate and rhythm, normal S1 and S2 without murmur, rub or gallop. ABDOMEN: Soft, nontender, not distended, normoactive bowel sounds. MUSCULOSKELETAL: Normal range of motion at all joints. No bony deformities or tenderness. No CVA tenderness. UPPER EXTREMITIES: 2+ pulses, warm, well-perfused. No cyanosis. No clubbing. No peripheral edema. LOWER EXTREMITIES: 2+ pulses, Left foot: fluid draining from wound site of amputated left great toe; Left second toe has purplish color, with avulsed nail and fluid draining on palpation, with surrounding erythema and edema on dorsal side of foot; +1 b/l pitting edema NEUROLOGICAL: Cranial nerves II-XII intact. Normal speech. Normal gait. PSYCHIATRIC: Cooperative. Good eye contact. Appropriate mood and affect. SKIN: Warm, dry, normal turgor, no rashes or lesions. Laboratory Results - last 24 hr 03/15/18 03/15/18 03/15/18 19:02 19:02 19:02 WBC 8.5 RBC 3.40 L Hgb 9.6 L Hct 28.2 L MCV 83.0 MCH 28.3 MCHC 34.0 RDW 13.8 Plt Count 289 MPV 7.9 Absolute Neuts (auto) 6.4 Neutrophils % 75.5 Lymphocytes % 12.9 D Monocytes % 7.7 Eosinophils % 3.0 Basophils % 0.9 Nucleated RBC % 0 PT with INR 12.40 INR 1.10 H PTT (Actin FS) 32.2 Sodium 138 Potassium 4.5 Chloride 103 Carbon Dioxide 24 Anion Gap 11 BUN 28 H Creatinine 1.5 H Creat Clearance w eGFR 48.41 Random Glucose 165 H D Calcium 8.6 Total Bilirubin 0.4 AST 12 L ALT 19 D Alkaline Phosphatase 100 D Total Protein 7.5 Albumin 3.4 Urine Color Urine Appearance Urine pH Ur Specific [place] Urine Protein Urine Glucose (UA) Urine Ketones Urine Blood Urine Nitrite Urine Bilirubin Urine Urobilinogen Ur Leukocyte Esterase 03/15/18 21:30 WBC RBC Hgb Hct MCV MCH MCHC RDW Plt Count MPV Absolute Neuts (auto) Neutrophils % Lymphocytes % Monocytes % Eosinophils % Basophils % Nucleated RBC % PT with INR INR PTT (Actin FS) Sodium Potassium Chloride Carbon Dioxide Anion Gap BUN Creatinine Creat Clearance w eGFR Random Glucose Calcium Total Bilirubin AST ALT Alkaline Phosphatase Total Protein Albumin Urine Color Straw Urine Appearance Clear Urine pH 5.0 D Ur Specific [place] 1.009 Urine Protein Negative Urine Glucose (UA) 1+ H Urine Ketones Negative Urine Blood Negative Urine Nitrite Negative Urine Bilirubin Negative Urine Urobilinogen Negative Ur Leukocyte Esterase Negative ASSESSMENT/PLAN: Patient is a 57 year old male with past medical history of HTN, DM , BPH and left great toe osteomyelitis s/p amputation (12/2017), presented with painful left second toe. #Cellulitis left foot, second toe, r/o osteomyelitis -Pus draining from wound site of amputated left great toe. -Left second toe has purplish color, with avulsed nail and fluid draining on palpation, with surrounding erythema and edema on dorsal side of foot -Xray of left foot showed moderate soft tissue swelling over dorsal aspect of left foot, and mild interval irregularity at site of amputation. -CT of left foot ordered stat -MRI of left foot ordered, rule out osteomyelitis -Blood and wound cultures pending -ESR/CRP in the AM -Started on Vancomycin 1000mg at the ED, will continue q12h -Zosyn 3.375mg given at the ED, will continue q8h -Dr. Ybarra consult appreciated. -Dr. Pike consult appreciated. #JASWINDER vs CKD: BUN 28 Cr 1.5 -patient was diagnosed with acute interstitial nephritis on previous admission ( 12/2017) probably due to Bactrim, Amoxicillin and Pantoprazole. Meds were discontinued and patient given steroids. -Before consulting at the ED today,patient took 2 tabs of Bactrim and 2 tabs of Amoxicillin. -IV fluid started. -Dr. Pike consult appreciated. #DM: uncontrolled -random glu - 165 -hold Glimepiride -sliding scale insulin started -monitor BGM ACHS #Hypertension: chronic -hold Furosemide, HCTZ and Losartan (nephrotoxic) -monitor BP -if BP elevated in the AM, may give Amlodipine 10mg. #Constipation: chronic -patient reports good BM -continue Miralax #BPH: chronic -continue Tamsulosin 0.8mg PO HS #FEN -IV NS (0.9%) at 75 ml/hr -electrolytes wnl, routine bmp monitoring -diabetic/sodium restricted diet #Prophylaxis -Heparin 5000 units sq tid #Disposition -admit to med-surg -full code Visit type - Emergency Visit Emergency Visit: Yes ED Registration Date: 03/16/18 Care time: The patient presented to the Emergency Department on the above date and was hospitalized for further evaluation of their emergent condition. - New Patient This patient is new to me today: Yes Date on this admission: 03/16/18 - Critical Care Critical Care patient: No Hospitalist Screening - Colonoscopy Questionnaire Colonoscopy Questionnaire: Colonoscopy Questionnaire - Patient: 50 - 75 years old and never had a screening colonoscopy: Unknown History of colon or rectal polyps, or CA: Unknown History of IBD, Crohn's disease or UC: Unknown History of abdominal radiation therapy as a child: Unknown - Relative: 1 with colon or rectal CA, or polyps at age 60 or younger: Unknown Colon or rectal CA diagnosed at age 45 or younger: Unknown Multiple relatives with colon or rectal CA: Unknown - Outcome: Screening Result: Negative Screen
--- NOTE | 2018-03-16 01:27 | PN ---
Teaching Attending Note Name of Resident: Jesenia Butcher ATTENDING PHYSICIAN STATEMENT I saw and evaluated the patient. I reviewed the resident's note and discussed the case with the resident. I agree with the resident's findings and plan as documented. SUBJECTIVE: This is a 57 year old man with a history of type 2 DM, HTN, BPH with bladder outlet obstruction, osteomyelitis of his left 1st toe s/p amputation 12/24/17, acute interstitial nephritis 12/2017 who comes to the ED complaining of pain and swelling of his left 2nd toe x 2 days. He denies fever, chills. OBJECTIVE: Vital Signs Period Temp Pulse Resp BP Sys/Garner Pulse Ox Last 24 Hr 99.2 F 99 18 125/79 100 HEART: S1S2, RRR LUNGS: Clear ABDOMEN: Soft, non-tender, non-distended, normal BS EXTREMITIES: Small amount of purulent drainage at left 1st toe amputation site. Left foot swollen from forefoot to ankle. Focal swelling with fluctuance and erythema proximal to left 1st toe amputation site extending to base of left 2nd toe. Left 2nd toe is purple, swollen, and warm. Laboratory Tests 03/15/18 03/15/18 03/15/18 19:02 19:02 19:02 WBC 8.5 RBC 3.40 L Hgb 9.6 L Hct 28.2 L MCV 83.0 MCH 28.3 MCHC 34.0 RDW 13.8 Plt Count 289 MPV 7.9 Absolute Neuts (auto) 6.4 Neutrophils % 75.5 Lymphocytes % 12.9 D Monocytes % 7.7 Eosinophils % 3.0 Basophils % 0.9 Nucleated RBC % 0 PT with INR 12.40 INR 1.10 H PTT (Actin FS) 32.2 Sodium 138 Potassium 4.5 Chloride 103 Carbon Dioxide 24 Anion Gap 11 BUN 28 H Creatinine 1.5 H Creat Clearance w eGFR 48.41 Random Glucose 165 H D Calcium 8.6 Total Bilirubin 0.4 AST 12 L ALT 19 D Alkaline Phosphatase 100 D Total Protein 7.5 Albumin 3.4 Urine Color Urine Appearance Urine pH Ur Specific [place] Urine Protein Urine Glucose (UA) Urine Ketones Urine Blood Urine Nitrite Urine Bilirubin Urine Urobilinogen Ur Leukocyte Esterase 03/15/18 21:30 WBC RBC Hgb Hct MCV MCH MCHC RDW Plt Count MPV Absolute Neuts (auto) Neutrophils % Lymphocytes % Monocytes % Eosinophils % Basophils % Nucleated RBC % PT with INR INR PTT (Actin FS) Sodium Potassium Chloride Carbon Dioxide Anion Gap BUN Creatinine Creat Clearance w eGFR Random Glucose Calcium Total Bilirubin AST ALT Alkaline Phosphatase Total Protein Albumin Urine Color Straw Urine Appearance Clear Urine pH 5.0 D Ur Specific [place] 1.009 Urine Protein Negative Urine Glucose (UA) 1+ H Urine Ketones Negative Urine Blood Negative Urine Nitrite Negative Urine Bilirubin Negative Urine Urobilinogen Negative Ur Leukocyte Esterase Negative Home Medications Medication Instructions Recorded Glimepiride 2 mg PO DAILY #14 tablet 12/28/17 Amlodipine Besylate [Norvasc -] 10 mg PO DAILY #30 tablet 01/08/18 Polyethylene Glycol 3350 [Miralax 17 gm PO DAILY #2 bottle 01/08/18 119 gm Btl -] Tamsulosin HCl [Flomax -] 0.8 mg PO HS #60 cap.er.24h 01/08/18 Furosemide [Lasix -] 40 mg PO DAILY 02/26/18 Hydrochlorothiazide 12.5 mg PO DAILY 02/26/18 ASSESSMENT AND PLAN: This is a 57 year old man with a history of type 2 DM, HTN, BPH with bladder outlet obstruction, osteomyelitis of his left 1st toe s/p amputation 12/24/17, acute interstitial nephritis 12/2017 who presented to the ED with of pain and swelling of his left 2nd toe x 2 days. 1. Cellulitis of left foot - Zosyn, Vancomycin - Had recent amputation of left 1st toe for osteomyelitis 12/24 - CT of foot to evaluate for abscess/osteomyelitis 2. Acute kidney injury - Hold Cozaar, Lasix, HCTZ - IV fluid - Monitor BUN, creatinine 3. Type 2 DM - Hold Amaryl - Fingersticks with Novolog sliding scale 4. HTN - Hold Cozaar, Lasix, HCTZ secondary to JASWINDER 5. BPH - Continue Flomax
[2018-03-16] MEDS ORDERED: VANCOMYCIN 1,000 MG in DEXTROSE 5%-WATER - 250 ML IVPB SCH (01:30)
[2018-03-16] MEDS: SODIUM CHLORIDE 1,000 ML IV SCH ×2 (07:16→19:39)
[2018-03-16] MEDS: HEPARIN NA (PORCINE) 5,000 UNITS/ML 1ML VIAL SQ SCH ×3 (07:17→21:33)
[2018-03-16] MEDS: PIPERACILLIN/TAZOB 3.375 GM 3.375 GM in DEXTROSE 5%-WATER - 50 ML IVPB SCH ×4 (07:17→21:32)
[2018-03-16] MEDS ORDERED: HEPARIN NA (PORCINE) 5,000 UNITS/ML 1ML VIAL ONE (07:19)
[2018-03-16] MEDS ORDERED: PIPERACILLIN/TAZOB 3.375 GM 3.375 GM/50 ML BAG IVPB ONE (07:20)
[2018-03-16 07:25] LABS: HEMATOCRIT 27.7 % (35.4-49); HEMOGLOBIN 9.3 GM/dL (11.7-16.9); MCH 27.9 pg (25.7-33.7); MCHC 33.7 g/dl (32.0-35.9); MEAN CELL VOLUME 82.8 fl (80-96); MEAN PLT VOLUME 7.8 fl (7.5-11.1); PLATELET COUNT 254 K/MM3 (134-434); RBC 3.34 M/mm3 (4.00-5.60); RDW 13.8 % (11.9-15.9); WHITE BLOOD COUNT 9.9 K/mm3 (4.0-10.0)
[2018-03-16 08:11] LABS: ANION GAP 8 (8-16); BLOOD UREA NITROGEN 25 mg/dL (7-18); CALCIUM 8.4 mg/dL (8.5-10.1); CHLORIDE 104 mmol/L (98-107); CO2 26 mmol/L (21-32); CREATININE 1.5 mg/dL (0.7-1.3); GLUCOSE,RANDOM 135 mg/dL (74-106); MAGNESIUM 1.9 mg/dL (1.8-2.4); PHOSPHOROUS 4.8 mg/dL (2.5-4.9); POTASSIUM 4.4 mmol/L (3.5-5.1); SODIUM 138 mmol/L (136-145)
[2018-03-16 08:30] LABS: ERYTHROCYTE SEDIMENTATION RATE 69 mm/hr (0-20)
[2018-03-16] MEDS ORDERED: VANCOMYCIN 1,000 MG in DEXTROSE 5%-WATER - 250 ML IVPB ONE (11:00)
[2018-03-16] MEDS ORDERED: VANCOMYCIN 1 GRAM (PRE-DOCKED) 1,000 MG/250 ML BAG IVPB ONE (11:06)
[2018-03-16] MEDS: POLYETHYLENE GLYCOL 3350 119 GM BTL PO SCH (11:11)
--- NOTE | 2018-03-16 13:12 | EKG ---
Test Reason : Blood Pressure : / mmHG Vent. Rate : 075 BPM Atrial Rate : 075 BPM P-R Int : 166 ms QRS Dur : 118 ms QT Int : 372 ms P-R-T Axes : 037 -24 043 degrees QTc Int : 415 ms NORMAL SINUS RHYTHM LEFT VENTRICULAR HYPERTROPHY WITH QRS WIDENING ABNORMAL ECG Confirmed by German Gaviria MD ([id number]) on 03/16/2018 1:11:40 PM Referred By: Confirmed By:German Gaviria MD
[2018-03-16] MEDS ORDERED: INSULIN (NOVOLOG) ASPART 100 UNITS/ML 10ML VIAL SQ ONE (13:50)
--- NOTE | 2018-03-16 15:39 | CONSULT ---
Consult - text type - Consultation Consultation Note: Podiatry Consultation: 57 year old DM M presents with L 2nd digit pain/swelling/discharge for several days. Patient reports cutting his second toe nail and developed an ulcer subsequent to this. Denies F/V/N/C/SOB/CP. Afebrile, VSS. Patient well known to me from prior admission, s/p L hallux amputation for DFI 12/24/17. PMHx: IDDM, HTN, HLP, bladder obstruction Meds: noted ALL: pantoprazole JESSIE: L foot: pedal pulses palpable, TG wnl. Post-surgical site hallux amputation with mild seropurulent drainage, no streaking cellulitis, no signs of infection. L 2nd digit distal tuft diabetic ulcer with fibrogranular base, mild purulent drainage, malodor present, probes deep, no soft tissue crepitus, no streaking cellulitis. Mild tenderness to palpation. L foot MRI: pending Imp: 57 year old DM M with L 2nd digit diabetic ulcer 1. IV abx per ID 2. DSD L foot 3. MRI report pending. Looks like there is BME distal phalanx of the second digit. 4. If MRI (+) would benefit from partial amputation second digit. 5. Will discuss results with patient tomorrow. Will follow. Elder Ybarra DPM
--- NOTE | 2018-03-16 15:45 | PN ---
Progress Note (short form) - Note Progress Note: ID consult dictated imp/reccd diabetic foot infection r/o osteomyelitis continue vanco/zosyn f/u MRI f/u podiatry ckd dm history of AIN ?recent cath at [facility] [place]
--- NOTE | 2018-03-16 15:58 | CONSULT ---
Consult - text type - Consultation Consultation Note: Renal Consult for JASWINDER/CKD This is a 57 year old gentleman with Hx of Hypertension, DM Type 2, PVD, Osteomylitis of LE, recent JASWINDER secondary to AIN who presents with pain and swelling of his toes and found to have Cr of 1.5. Pt reports having a cardiac cath last at [facility]. Now on ARB as of 03/04. Denies any LE swelling, flank pain, hematuria. Has occasional dysuria. No N/V/D. On oral abx as outpatient. Denies any NSAID use. No LEAL, confusion, lethargy. reports feeling dizzy on flomax. PMhx: as above Allergies: Protonix (AIN) Family hx: NC Social Hx: no T/A/D ROS: as per HPI, all other pertinent ros negative Home Medications Medication Instructions Recorded Glimepiride 2 mg PO DAILY #14 tablet 12/28/17 Tamsulosin HCl [Flomax -] 0.8 mg PO HS #60 cap.er.24h 01/08/18 Furosemide [Lasix -] 40 mg PO DAILY 02/26/18 Atorvastatin Ca [Lipitor] 40 mg PO DAILY 03/16/18 Gabapentin [Neurontin -] 100 mg PO TID 03/16/18 Losartan Potassium [Cozaar -] 50 mg PO DAILY 03/16/18 Vital Signs Temperature 98.6 F 03/16/18 12:56 Pulse Rate 70 03/16/18 12:56 Respiratory Rate 16 03/16/18 12:56 Blood Pressure 129/69 03/16/18 12:56 O2 Sat by Pulse Oximetry (%) 98 03/16/18 12:56 Intake & Output 03/13/18 03/14/18 03/15/18 03/16/18 23:59 23:59 23:59 23:59 Weight 80.739 kg NAD awake and alert MMM, No JVD, Neck supple RRR, No M/R CTA, no rales or wheeze soft NT/ND right thigh hematoma no Le edema, clubbing ro cyanosis no bladder distension CBC, BMP 03/16/18 06:30 03/16/18 06:30 Current Medications Atorvastatin Calcium (Lipitor -) 40 mg PO HS CELESTINO Gabapentin (Neurontin -) 100 mg PO TID CELESTINO Heparin Sodium (Porcine) (Heparin -) 5,000 unit SQ TID CELESTINO Last Admin: 03/16/18 07:17 Dose: 5,000 unit Sodium Chloride (Normal Saline -) 1,000 mls @ 75 mls/hr IV ASDIR CELESTINO Last Admin: 03/16/18 07:16 Dose: 75 mls/hr Piperacillin Sod/Tazobactam (Sod 3.375 gm/ Dextrose) 50 mls @ 100 mls/hr IVPB Q8H-IV CELESTINO; Protocol Vancomycin HCl (Vancomycin 1 Gm Premix -) 1 gm in 200 mls @ 133.333 mls/hr IVPB Q24H CELESTINO; Protocol Insulin Aspart (Novolog Vial Sliding Scale -) 1 vial SQ ACHS CELESTINO; Protocol Polyethylene Glycol (Miralax (For Daily Use) -) 17 gm PO DAILY [facility] Last Admin: 03/16/18 11:11 Dose: 17 grams Tamsulosin HCl (Flomax -) 0.8 mg PO HS CELESTINO 57 year old gentleman with Hx of Hypertension, DM Type 2, PVD, Osteomylitis of LE, recent JASWINDER secondary to AIN who presents with pain and swelling of his toes and found to have Cr of 1.5 #JASWINDER vs. CKD (from AIN vs. Contrast nephropathy vs. volume depletion) #LE Osteomylitis #DM #Hypertension #Anemia Cr slightly above low value from last discharge no eosinophils to suggest on going AIN at this time will hold ARB at this time agree with IVF hydration Check urine studies no need for Us at this time trend renal function and peripheral eosinophils while on IV Abx check iron studies Would start CCB/BB for hypertension if needed while off ARB Thank you Rufino Rudolph DO
[2018-03-16] MEDS ORDERED: PIPERACILLIN/TAZOBACTAM 3.375 GM VIAL IVPB ONE ×2 (16:04→21:11)
[2018-03-16] MEDS ORDERED: INSULIN (NOVOLOG) ASPART 100 UNITS/ML 10ML VIAL ONE ×2 (16:04→21:08)
[2018-03-16] MEDS ORDERED: DEXTROSE 5%-WATER - 50 ML IVPB ONE ×2 (16:04→21:11)
[2018-03-16] MEDS ORDERED: INSULIN SLIDING SCALE (NOVOLOG) 1 VIAL SQ SCH (16:30)
[2018-03-16] MEDS: GABAPENTIN 100 MG CAPSULE (FP) PO SCH ×2 (16:35→21:32)
[2018-03-16] MEDS: INSULIN SLIDING SCALE (NOVOLOG) 1 VIAL SQ SCH ×2 (16:45→21:34)
[2018-03-16] MEDS ORDERED: PIPERACILLIN/TAZOB 3.375 GM 3.375 GM in DEXTROSE 5%-WATER - 50 ML IVPB SCH (18:00)
--- NOTE | 2018-03-16 18:08 | PN ---
Teaching Attending Note Name of Resident: Maren Colbert ATTENDING PHYSICIAN STATEMENT I saw and evaluated the patient. I reviewed the resident's note and discussed the case with the resident. I agree with the resident's findings and plan as documented. SUBJECTIVE:asymptomatic. states he only has pain when ambulating. denies Cp, SOB < fever, chills, N/V/C/d OBJECTIVE: Last Vital Signs Temp Pulse Resp BP Pulse Ox 98.6 F 70 16 129/69 98 03/16/18 12:56 03/16/18 12:56 03/16/18 12:56 03/16/18 12:56 03/16/18 12:56 General NAD Extremities L foot with ulcer at base at 2nd digit no purulent drainage. skin is boggy no crepitus. no tenderness ASSESSMENT AND PLAN: 57yo M with PMH DM, HTN, L foot OM s/p 1st digit amputation earlier this year presenting with pain present in the 2nd digit 1. L foot 2nd digit ulcer- concern for OM based on appearance and elevated ESR/ CRP. MRI of the foot pending. may require amputaiton of the toe. awaiting for MRI and podiatry to make decision. on vanco/zosyn day 2. ID and podiatry on board. 2. JASWINDER- likely medication induced. hold arb and lasix. nephrology on board 3. DM- hold oral agents. bgm, ISS 4. HTN- controlled. monitor while holding meds 5. DVT ppx- hep sq
[2018-03-16] MEDS ORDERED: MORPHINE SULFATE 2 MG/ML VIAL IVPUSH PRN (19:46)
--- NOTE | 2018-03-16 19:49 | PN ---
Physical Exam: SUBJECTIVE: Patient seen and examined this morning in the ED. Continues to have pain during ambulation Denies fevers, chills, chest pain, SOB, nausea, vomiting. OBJECTIVE: Vital Signs Period Temp Pulse Resp BP Sys/Garner Pulse Ox Last 24 Hr 98.5 F-98.6 F 70-88 16-20 122-133/66-75 98-100 GENERAL: The patient is awake, alert, and fully oriented, in no acute distress. EYES: PERRL, EOMI THROAT: oropharynx clear without exudates, moist mucous membranes. NECK: Supple, No JVD LUNGS: Breath sounds equal, clear to auscultation bilaterally, no wheezes HEART: Regular rate and rhythm, S1, S2 without murmur, rub or gallop. ABDOMEN: Soft, nontender, nondistended, normoactive bowel sounds EXTREMITIES: 2+ pulses, Left Great toe amputation site with minimal serous drainage, no surrounding erythema or tenderness. Ulcer present on the tip of the Left 2nd digit, tender to palpation with mild purulent discharge that patient says has been malodorous since thursday. Left 2nd digit toe nail was cut off by patient. SKIN: Warm, dry, no rashes or lesions noted Laboratory Results - last 24 hr 03/15/18 03/15/18 03/15/18 19:02 19:02 21:30 WBC RBC Hgb Hct MCV MCH MCHC RDW Plt Count MPV ESR Retic Count PT with INR 12.40 INR 1.10 H PTT (Actin FS) 32.2 Sodium 138 Potassium 4.5 Chloride 103 Carbon Dioxide 24 Anion Gap 11 BUN 28 H Creatinine 1.5 H Creat Clearance w eGFR 48.41 POC Glucometer Random Glucose 165 H D Calcium 8.6 Phosphorus Magnesium Ferritin Total Bilirubin 0.4 AST 12 L ALT 19 D Alkaline Phosphatase 100 D C-Reactive Protein Total Protein 7.5 Albumin 3.4 Urine Color Straw Urine Appearance Clear Urine pH 5.0 D Ur Specific [place] 1.009 Urine Protein Negative Urine Glucose (UA) 1+ H Urine Ketones Negative Urine Blood Negative Urine Nitrite Negative Urine Bilirubin Negative Urine Urobilinogen Negative Ur Leukocyte Esterase Negative 03/16/18 03/16/18 03/16/18 06:30 06:30 06:30 WBC 9.9 RBC 3.34 L Hgb 9.3 L Hct 27.7 L MCV 82.8 MCH 27.9 MCHC 33.7 RDW 13.8 Plt Count 254 MPV 7.8 ESR 69 H Retic Count 1.19 D PT with INR INR PTT (Actin FS) Sodium 138 Potassium 4.4 Chloride 104 Carbon Dioxide 26 Anion Gap 8 BUN 25 H Creatinine 1.5 H Creat Clearance w eGFR 48.41 POC Glucometer Random Glucose 135 H Calcium 8.4 L Phosphorus 4.8 Magnesium 1.9 Ferritin 125.6 Total Bilirubin AST ALT Alkaline Phosphatase C-Reactive Protein 2.3 H Total Protein Albumin Urine Color Urine Appearance Urine pH Ur Specific [place] Urine Protein Urine Glucose (UA) Urine Ketones Urine Blood Urine Nitrite Urine Bilirubin Urine Urobilinogen Ur Leukocyte Esterase Active Medications Atorvastatin Calcium (Lipitor -) 40 mg PO HS [facility] Gabapentin (Neurontin -) 100 mg PO TID [facility] Last Admin: 03/16/18 16:35 Dose: 100 mg Heparin Sodium (Porcine) (Heparin -) 5,000 unit SQ TID [facility] Last Admin: 03/16/18 16:44 Dose: 5,000 unit Sodium Chloride (Normal Saline -) 1,000 mls @ 75 mls/hr IV ASDIR [facility] Last Admin: 03/16/18 07:16 Dose: 75 mls/hr Vancomycin HCl (Vancomycin 1 Gm Premix -) 1 gm in 200 mls @ 133.333 mls/hr IVPB Q24H [facility]; Protocol Piperacillin Sod/Tazobactam (Sod 3.375 gm/ Dextrose) 50 mls @ 100 mls/hr IVPB Q8H-IV [facility]; Protocol Last Admin: 03/16/18 16:37 Dose: Not Given Insulin Aspart (Novolog Vial Sliding Scale -) 1 vial SQ ACHS [facility]; Protocol Last Admin: 03/16/18 16:45 Dose: 2 units Polyethylene Glycol (Miralax (For Daily Use) -) 17 gm PO DAILY [facility] Last Admin: 03/16/18 11:11 Dose: 17 grams Tamsulosin HCl (Flomax -) 0.8 mg PO HS [facility] IMAGING: - Left LE DUPLEX: There is no evidence of deep venous thrombosis in the left lower extremity. Wren's cyst in the left popliteal fossa measuring 3.4 x 1.5 cm - Left Foot XRay: Interval moderate soft tissue swelling over dorsal aspect of the foot and mild cortical irregularity at the site of amputation, mid first metatarsal level. Correlation with MRI of the left foot is needed in view of the clinical history to rule out osteomyelitis. - CT LE: As noted on conventional radiography performed 12/24/2017 the patient is status post amputation of the first digit as well as the head and neck of the first metatarsal bone. Calcified periosteal thickening has developed along the medial and lateral aspects of the residual distal portion of the first metatarsal bone. No obvious focal bone erosion is noted. If there is clinical concern for possible osteomyelitis additional evaluation utilizing MRI is suggested. concentric subcutaneous edema is seen along the left foot and ankle and to a lesser extent also involving the contralateral foot/ankle. This subcutaneous edema could be on the basis of cellulitis. Incidental note is made of moderate subtalar arthritic change involving the right ankle. - MRI LE: Marked soft tissue edema of the foot. Amputation of the first digit the level of the mid metatarsal with adjacent fluid and soft tissue edema. Focal increased T2 signal/bone marrow edema of the residual distal aspect of the first metatarsal which could be postoperative or consistent with osteomyelitis. Open wound along the dorsal aspect of the distal phalanx of the second toe. Bone marrow edema of the middle and distal phalanges of the second toe consistent with osteomyelitis. Question of mild bone marrow edema of the distal aspect of the proximal phalanx of the second toe and of the second metatarsal head which may be reactive however osteomyelitis cannot be excluded. Bone marrow edema of the base of the second metatarsal which may be neuropathic however osteomyelitis cannot be excluded. ASSESSMENT/PLAN: Patient is a 57 year old male with past medical history of HTN, DM , BPH and left great toe osteomyelitis s/p amputation (12/2017), presented with painful left second toe. 1. Left Second Digit Ulcer - Ulcer present on the tip of the Left 2nd digit, tender to palpation with mild , malodorous purulent discharge - XRay and CT Noted above - MRI LE: Bone marrow edema of the middle and distal phalanges of the second toe consistent with osteomyelitis. - CRP: 2.3 H - ESR: 69 H - Blood and wound cultures pending - Continue Vancomycin 1000mg (Day 2) - Continue Zosyn (Day 2) - Podiatry (Dr. Ybarra) consulted, appreciate rec's, IV abx per ID, DSD L foot, If MRI (+) would benefit from partial amputation second digit. - ID (Dr. Pike) consulted, appreciate rec's 2. JASWINDER vs CKD - BUN 25 Cr 1.5 - Acute Interstitial Nephritis during previous admission (12/2017), Likely due to Bactrim and Amoxicillin use, treated with steroids. Pt again took 2 tabs of Bactrim and 2 tabs of Amoxicillin before visiting ED - Continue Normal Saline @ 75 mls/hr IV - Nephrology (Dr. Rudolph) consulted, appreciate rec's, no eosinophils to suggest on going AIN at this time, will hold ARB at this time, check iron studies, Would start CCB/BB for hypertension if needed while off ARB 3. DM - Uncontrolled - hold Home meds - ISS BGM ACHS 4. Hypertension - Controlled - Hold Furosemide, HCTZ and Losartan (nephrotoxic) - Consider Amlodipine if BP elevated 5. FEN - Normal Saline @ 75 mls/hr IV - lytes wnl - diabetic/sodium restricted diet 6. PPx - DVT: Heparin 5000 units sq tid Visit type - Emergency Visit Emergency Visit: Yes ED Registration Date: 03/16/18 Care time: The patient presented to the Emergency Department on the above date and was hospitalized for further evaluation of their emergent condition. - New Patient This patient is new to me today: Yes Date on this admission: 03/16/18 - Critical Care Critical Care patient: No - Discharge Referral Referred to [facility] Med P.C.: No
[2018-03-16] MEDS ORDERED: ATORVASTATIN CA 40 MG TABLET (FP) PO SCH (22:00)
[2018-03-16] MEDS ORDERED: TAMSULOSIN HCL 0.4 MG CAP.ER.24H (FP) PO SCH (22:00)
[2018-03-17] MEDS ORDERED: PIPERACILLIN/TAZOBACTAM 3.375 GM VIAL IVPB ONE ×3 (01:43→17:01)
[2018-03-17] MEDS ORDERED: DEXTROSE 5%-WATER - 50 ML IVPB ONE ×3 (01:43→17:01)
[2018-03-17] MEDS: PIPERACILLIN/TAZOB 3.375 GM 3.375 GM in DEXTROSE 5%-WATER - 50 ML IVPB SCH ×3 (02:03→17:08)
[2018-03-17] MEDS: SODIUM CHLORIDE 1,000 ML IV SCH ×3 (02:03→20:09)
[2018-03-17] MEDS: HEPARIN NA (PORCINE) 5,000 UNITS/ML 1ML VIAL SQ SCH ×3 (06:08→21:32)
[2018-03-17] MEDS: GABAPENTIN 100 MG CAPSULE (FP) PO SCH ×3 (06:28→21:32)
[2018-03-17] MEDS: INSULIN SLIDING SCALE (NOVOLOG) 1 VIAL SQ SCH ×4 (06:30→21:32)
[2018-03-17 08:00] LABS: HEMATOCRIT 31.5 % (35.4-49); HEMOGLOBIN 10.5 GM/dL (11.7-16.9); MCH 27.9 pg (25.7-33.7); MCHC 33.4 g/dl (32.0-35.9); MEAN CELL VOLUME 83.5 fl (80-96); MEAN PLT VOLUME 7.5 fl (7.5-11.1); MONO % 6.3 % (3.8-10.2); NEUT % 66.7 % (42.8-82.8); PLATELET COUNT 281 K/MM3 (134-434); RBC 3.77 M/mm3 (4.00-5.60); WHITE BLOOD COUNT 6.5 K/mm3 (4.0-10.0)
[2018-03-17 08:07] LABS: SERUM IRON SATURATION 9 % (15-55); TOTAL IRON BINDING CAPACITY 259 ug/dL (250-450); UIBC 235 ug/dL (111-343)
[2018-03-17] MEDS: VANCOMYCIN 1,000 MG in DEXTROSE 5%-WATER - 250 ML IVPB SCH (08:14)
[2018-03-17 08:46] LABS: CHLORIDE 106 mmol/L (98-107); POTASSIUM 4.5 mmol/L (3.5-5.1); SODIUM 139 mmol/L (136-145)
[2018-03-17 08:58] LABS: ALBUMIN 3.2 g/dl (3.4-5.0); ALK PHOS 87 U/L (45-117); ANION GAP 8 MMOL/L (8-16); BILIRUBIN,TOTAL 0.4 mg/dL (0.2-1.0); BLOOD UREA NITROGEN 22 mg/dL (7-18); CALCIUM 8.8 mg/dL (8.5-10.1); CO2 25 mmol/L (21-32); CREATININE 1.4 mg/dL (0.7-1.3); GLUCOSE,RANDOM 131 mg/dL (74-106); MAGNESIUM 2.2 mg/dL (1.8-2.4); PHOSPHOROUS 4.8 mg/dL (2.5-4.9); SGOT/AST 13 U/L (15-37); SGPT/ALT 18 U/L (12-78); TOT PROT 7.6 g/dl (6.4-8.2)
[2018-03-17] MEDS ORDERED: PT OWN MED DRAWER 7, Y5N ONE (09:41)
[2018-03-17] MEDS: POLYETHYLENE GLYCOL 3350 119 GM BTL PO SCH (09:43)
[2018-03-17] MEDS ORDERED: VANCOMYCIN 1 GM PREMIX - 1 GM/200 ML BAG IVPB SCH (10:00)
--- NOTE | 2018-03-17 10:38 | PN ---
Progress Note (short form) - Note Progress Note: Podiatry F/U: Seen/evaluated at bedside NAD. Denies F/V/N/C/SOB/CP. Afebrile, VSS. MRI completed. JESSIE: L foot: pedal pulses palpable, TG wnl, CFT brisk to all toes. There is a distal tuft diabetic ulcer left second toe with fibrogranular base, (+) purulent drainage, (+) probes to bone, no soft tissue crepitus, no streaking cellulitis MRI: (+) osteomyelitis middle and distal phalanx of left second digit Imp: 57 year old DM M with osteomyelitis left second digit 1. IV abx per ID 2. Discussed treatment options and reviewed MRI with patient. Discussed that definitive treatment would be to remove all infected bone from second toe, i.e. partial amputation second digit. Patient is amenable to surgery. Risks, benefits and alternatives to treatment discussed at length. Plan for OR this evening. Informed consent obtained at bedside. 3. Will follow. Elder Ybarra DPM
--- NOTE | 2018-03-17 13:32 | PN ---
Teaching Attending Note Name of Resident: Nash Tavarez ATTENDING PHYSICIAN STATEMENT I saw and evaluated the patient. I reviewed the resident's note and discussed the case with the resident. I agree with the resident's findings and plan as documented. SUBJECTIVE:asymptomatic. denies CP, SOB, fever, chills, N/V/C/D OBJECTIVE: Last Vital Signs Temp Pulse Resp BP Pulse Ox 98.3 F 72 18 149/80 99 03/17/18 10:00 03/17/18 10:00 03/17/18 10:00 03/17/18 10:00 03/17/18 10:00 General NAD Extremities L foot bandaged c/d/i ASSESSMENT AND PLAN: 57yo M with PMH DM, HTN, L foot OM s/p 1st digit amputation earlier this year presenting with pain present in the 2nd digit 1. L foot 2nd digit OM- NPO for partial amputation.on vanco/zosyn day 3. will f/ u Bone Cx and determine if pt will require detention abx. ID and podiatry on board. pain control. PT post-op 2. JASWINDER- Fena >1 however is also on lasix. mild improvement. hold arb and lasix. nephrology on board 3. Iron def anemia- Hgb stable. will start iron supplements. will need repeat Iron studies in 3 months 4. DM- hold oral agents. bgm, ISS 5. HTN- controlled. monitor while holding meds 6. DVT ppx- hep sq
--- NOTE | 2018-03-17 14:55 | PN ---
Progress Note (short form) - Note Progress Note: for OR today partial amputation of the second toe Vital Signs Period Temp Pulse Resp BP Sys/Garner Pulse Ox Last 24 Hr 98.3 F-98.5 F 71-74 18-20 129-167/74-80 98-100 cor-rrr llungs clear abd soft,nt ext stump site no drainage second toe with necrotic tip CBC, BMP 03/17/18 06:30 03/17/18 06:30 MRI- noted imp/reccd diabetic foot infection r/o osteomyelitis continue vanco/zosyn will review MRI for OR today ckd dm history of AIN
--- NOTE | 2018-03-17 17:06 | PN ---
Physical Exam: SUBJECTIVE: Patient seen and examined. Pt. was NPO for procedure today. Pt. denies any fever, chills. Endoreses minor pain in the lower back. Pt. endorsed having some mild chest pain overnight that has self resolved. OBJECTIVE: Vital Signs Period Temp Pulse Resp BP Sys/Garner Pulse Ox Last 24 Hr 97.6 F-98.5 F 65-73 18-20 129-167/74-96 98-99 GENERAL: The patient is awake, alert, and fully oriented, in no acute distress. LUNGS: Breath sounds equal, clear to auscultation bilaterally, no wheezes, no crackles, no accessory muscle use. HEART: Regular rate and rhythm, S1, S2 without murmur ABDOMEN: Soft, nontender, nondistended, normoactive bowel sounds, no guarding, no rebound, no hepatosplenomegaly, no masses. EXTREMITIES: 2+ pulses, warm, well-perfused, no edema, mild bilateral calf- tenderness; 2nd left toe is necrotic at the tip, non-tender, non-erythematous, no discharge or purulence. NEUROLOGICAL: Normal speech, gait not observed. PSYCH: Normal mood, normal affect. SKIN: Warm, dry, normal turgor Laboratory Results - last 24 hr 03/16/18 03/16/18 03/17/18 06:30 21:31 03:45 WBC RBC Hgb Hct MCV MCH MCHC RDW Plt Count MPV Absolute Neuts (auto) Neutrophils % Lymphocytes % Monocytes % Eosinophils % Basophils % Nucleated RBC % Sodium Potassium Chloride Carbon Dioxide Anion Gap BUN Creatinine Creat Clearance w eGFR POC Glucometer 184 Random Glucose Calcium Phosphorus Magnesium Iron 24 L TIBC 259 Iron Saturation 9 L Total Bilirubin AST ALT Alkaline Phosphatase Total Protein Albumin U Random Total Protein Ur Random Sodium 65 Ur Random Urea Nitrogn Urine Creatinine 03/17/18 03/17/18 03/17/18 03:45 03:45 03:45 WBC RBC Hgb Hct MCV MCH MCHC RDW Plt Count MPV Absolute Neuts (auto) Neutrophils % Lymphocytes % Monocytes % Eosinophils % Basophils % Nucleated RBC % Sodium Potassium Chloride Carbon Dioxide Anion Gap BUN Creatinine Creat Clearance w eGFR POC Glucometer Random Glucose Calcium Phosphorus Magnesium Iron TIBC Iron Saturation Total Bilirubin AST ALT Alkaline Phosphatase Total Protein Albumin U Random Total Protein 13 H Ur Random Sodium Ur Random Urea Nitrogn 326 Urine Creatinine 33.8 08/03/17/18 03/17/18 06:30 06:30 06:30 WBC 6.5 RBC 3.77 L Hgb 10.5 L Hct 31.5 L MCV 83.5 MCH 27.9 MCHC 33.4 RDW 14.0 Plt Count 281 MPV 7.5 Absolute Neuts (auto) 4.3 Neutrophils % 66.7 Lymphocytes % 19.0 D Monocytes % 6.3 Eosinophils % 7.0 H D Basophils % 1.0 Nucleated RBC % 0 Sodium 139 Potassium 4.5 Chloride 106 Carbon Dioxide 25 Anion Gap 8 BUN 22 H Creatinine 1.4 H Creat Clearance w eGFR 52.42 POC Glucometer 121 Random Glucose 131 H Calcium 8.8 Phosphorus 4.8 Magnesium 2.2 Iron TIBC Iron Saturation Total Bilirubin 0.4 AST 13 L ALT 18 Alkaline Phosphatase 87 D Total Protein 7.6 Albumin 3.2 L U Random Total Protein Ur Random Sodium Ur Random Urea Nitrogn Urine Creatinine 03/17/18 11:19 WBC RBC Hgb Hct MCV MCH MCHC RDW Plt Count MPV Absolute Neuts (auto) Neutrophils % Lymphocytes % Monocytes % Eosinophils % Basophils % Nucleated RBC % Sodium Potassium Chloride Carbon Dioxide Anion Gap BUN Creatinine Creat Clearance w eGFR POC Glucometer 166 Random Glucose Calcium Phosphorus Magnesium Iron TIBC Iron Saturation Total Bilirubin AST ALT Alkaline Phosphatase Total Protein Albumin U Random Total Protein Ur Random Sodium Ur Random Urea Nitrogn Urine Creatinine Active Medications Current Medications Atorvastatin Calcium (Lipitor -) 40 mg PO HS [facility] Last Admin: 03/16/18 21:32 Dose: 40 mg Ferrous Sulfate (Feosol -) 325 mg PO BIDWM [facility] Last Admin: 03/17/18 17:00 Dose: Not Given Gabapentin (Neurontin -) 100 mg PO TID [facility] Last Admin: 03/17/18 13:44 Dose: Not Given Heparin Sodium (Porcine) (Heparin -) 5,000 unit SQ TID [facility] Last Admin: 03/17/18 13:44 Dose: Not Given Sodium Chloride (Normal Saline -) 1,000 mls @ 75 mls/hr IV ASDIR [facility] Last Admin: 03/17/18 11:16 Dose: 75 mls/hr Vancomycin HCl (Vancomycin 1 Gm Premix -) 1 gm in 200 mls @ 133.333 mls/hr IVPB Q24H [facility]; Protocol Last Admin: 03/17/18 10:37 Dose: 133.333 mls/hr Piperacillin Sod/Tazobactam (Sod 3.375 gm/ Dextrose) 50 mls @ 100 mls/hr IVPB Q8H-IV [facility]; Protocol Last Admin: 03/17/18 09:44 Dose: 100 mls/hr Insulin Aspart (Novolog Vial Sliding Scale -) 1 vial SQ ACHS [facility]; Protocol Last Admin: 03/17/18 17:00 Dose: Not Given Morphine Sulfate (Morphine Sulfate) 2 mg IVPUSH Q6H PRN PRN Reason: PAIN LEVEL 7 - 10 Last Admin: 03/16/18 21:32 Dose: 2 mg Polyethylene Glycol (Miralax (For Daily Use) -) 17 gm PO DAILY [facility] Last Admin: 03/17/18 09:43 Dose: Not Given Tamsulosin HCl (Flomax -) 0.8 mg PO HS [facility] Last Admin: 03/16/18 21:32 Dose: 0.8 mg Microbiology 03/15/18 21:30 Urine - Urine Clean Catch Urine Culture - Final NO GROWTH OBTAINED 03/16/18 01:10 Toe - Left Second Gram Stain - Final 03/16/18 01:10 Toe - Left Second Wound Culture - Preliminary Proteus Species Lactose Fermenting Neg Bacilli Group D Strep Or Entero Coccus Pending Organism Pending Organism#2 03/15/18 23:10 Blood - Peripheral Venous Blood Culture - Preliminary NO GROWTH OBTAINED AFTER 24 HOURS, INCUBATION TO CONTINUE FOR 4 DAYS. 03/15/18 23:10 Blood - Peripheral Venous Blood Culture - Preliminary NO GROWTH OBTAINED AFTER 24 HOURS, INCUBATION TO CONTINUE FOR 4 DAYS. IMAGING: - Left LE DUPLEX: There is no evidence of deep venous thrombosis in the left lower extremity. Wren's cyst in the left popliteal fossa measuring 3.4 x 1.5 cm - Left Foot XRay: Interval moderate soft tissue swelling over dorsal aspect of the foot and mild cortical irregularity at the site of amputation, mid first metatarsal level. Correlation with MRI of the left foot is needed in view of the clinical history to rule out osteomyelitis. - CT LE: As noted on conventional radiography performed 12/24/2017 the patient is status post amputation of the first digit as well as the head and neck of the first metatarsal bone. Calcified periosteal thickening has developed along the medial and lateral aspects of the residual distal portion of the first metatarsal bone. No obvious focal bone erosion is noted. If there is clinical concern for possible osteomyelitis additional evaluation utilizing MRI is suggested. concentric subcutaneous edema is seen along the left foot and ankle and to a lesser extent also involving the contralateral foot/ankle. This subcutaneous edema could be on the basis of cellulitis. Incidental note is made of moderate subtalar arthritic change involving the right ankle. - MRI LE: Marked soft tissue edema of the foot. Amputation of the first digit the level of the mid metatarsal with adjacent fluid and soft tissue edema. Focal increased T2 signal/bone marrow edema of the residual distal aspect of the first metatarsal which could be postoperative or consistent with osteomyelitis. Open wound along the dorsal aspect of the distal phalanx of the second toe. Bone marrow edema of the middle and distal phalanges of the second toe consistent with osteomyelitis. Question of mild bone marrow edema of the distal aspect of the proximal phalanx of the second toe and of the second metatarsal head which may be reactive however osteomyelitis cannot be excluded. Bone marrow edema of the base of the second metatarsal which may be neuropathic however osteomyelitis cannot be excluded. ASSESSMENT/PLAN: Patient is a 57 year old male with past medical history of HTN, DM , BPH and left great toe osteomyelitis s/p amputation (12/2017), presented with painful left second toe. 1. Left Second Digit Ulcer - Ulcer present on the tip of the Left 2nd digit, tender to palpation with mild , malodorous purulent discharge - XRay and CT Noted above - MRI LE: Bone marrow edema of the middle and distal phalanges of the second toe consistent with osteomyelitis. - CRP: 2.3 H - ESR: 69 H - Blood and wound cultures pending - Continue Vancomycin 1000mg (Day 3) - Continue Zosyn (Day 3) - Podiatry (Dr. Ybarra) consulted, appreciate rec's, IV abx per ID, DSD L foot, If MRI (+) would benefit from partial amputation second digit. - ID (Dr. Pike) consulted, appreciate rec's - Pt. will be going for partial second toe amputation at 6PM (03/17/18) 2. JASWINDER vs CKD - BUN 25 Cr 1.5 - Acute Interstitial Nephritis during previous admission (12/2017), Likely due to Bactrim and Amoxicillin use, treated with steroids. Pt again took 2 tabs of Bactrim and 2 tabs of Amoxicillin before visiting ED - Continue Normal Saline @ 75 mls/hr IV - Nephrology (Dr. Rudolph) consulted, appreciate rec's, no eosinophils to suggest on going AIN at this time, will hold ARB at this time, check iron studies, Would start CCB/BB for hypertension if needed while off ARB - Pt. currently at upper limit of baseline, based off prior creatinine results from prior admissions 3. DM - Uncontrolled - hold Home meds - ISS BGM ACHS 4. Hypertension - Controlled - Hold Furosemide, HCTZ and Losartan (nephrotoxic) - Consider Amlodipine if BP elevated 5. FEN - Normal Saline @ 75 mls/hr IV - lytes wnl - diabetic/sodium restricted diet 6. PPx - DVT: Heparin 5000 units sq tid Visit type - Emergency Visit Emergency Visit: Yes ED Registration Date: 03/16/18 Care time: The patient presented to the Emergency Department on the above date and was hospitalized for further evaluation of their emergent condition. - New Patient This patient is new to me today: Yes Date on this admission: 03/17/18 - Critical Care Critical Care patient: No - Discharge Referral Referred to [facility] Med P.C.: No
[2018-03-17] MEDS ORDERED: FERROUS SO4 325 MG TABLET (FP) PO SCH (17:30)
[2018-03-17] MEDS ORDERED: BUPIVACAINE HCL/PF 0.5% (5MG/ML) 10 ML VIAL ONE (18:02)
[2018-03-17] MEDS ORDERED: LIDOCAINE HCL 2% (20ML MULTI-DOSE VIAL) NR ONE (18:02)
[2018-03-17] MEDS ORDERED: MIDAZOLAM HCL 2 MG/2 ML SINGLE DOSE VIAL ONE (18:10)
[2018-03-17] MEDS ORDERED: LIDOCAINE HCL 2% (50ML VIAL) PNB ONE (18:20)
--- NOTE | 2018-03-17 18:45 | CONS ---
DATE OF CONSULTATION: 03/16/2018 HISTORY: This is a 57-year-old man with a past medical history of diabetes. He has a history of amputation of the 1st toe of his left foot December 24. He is now readmitted with pain in the 2nd toe of the left foot with swelling and drainage for several days. He had cut his toenail and developed an ulcer after that. There are no fevers or chills, but the foot is swollen. In prior amputation, pathology had clean margins. He was treated short term with oral antibiotics and followed up in wound care. PAST MEDICAL HISTORY: Diabetes, hypertension, hyperlipidemia, BPH as well as AIN, which was felt to be secondary to pantoprazole. He also as well recently underwent a cardiac catheterization on at [facility]. He denies any fevers. He had amoxicillin and Bactrim at home, which he took at home 2 doses. MEDICATIONS: As an outpatient include losartan, Neurontin, Lipitor, Flomax, glimepiride, and Lasix. SOCIAL HISTORY: He lives in the community. There is no history of any recent travel. There is no history of any cigarette or alcohol use. REVIEW OF SYSTEMS: He has had pain in his left foot and ankle with swelling and odor for the last 4 days. There are no fevers. No nausea, vomiting, diarrhea, dysuria, or chest pain. He quit smoking and alcohol 12 years ago. PHYSICAL EXAMINATION: General: He is awake and alert. Vital Signs: He has had no fever. Temperature 99.2 is his T-max, pulse 73, blood pressure 136/77, respiratory rate 18. He weighs 80 kg. HEENT: He is normocephalic. His eyes are anicteric. Neck: Supple. Lungs: Clear to auscultation. Heart: Regular rate and rhythm. Abdomen: Soft and nontender. Extremities: Notable for the 2nd toe tip is necrotic and with some drainage. The base of the 1st toe at the site of the prior amputation site has no erythema. There is no drainage. His foot is slightly swollen compared to the other foot. DIAGNOSTIC DATA: Labs are notable for a white count of 9.9, hemoglobin 9.3, platelets 254, sedimentation rate 69, INR 1.1, BUN 25, creatinine 1.5. The CRP is 2.3. Urinalysis is negative except for glucose. X-ray of the foot was notable for tissue swelling with some cortical irregularity at the site of amputation. CT scan shows no obvious bony erosion. He had subcutaneous edema of the left foot and ankle. In summary, this is a 57-year-old man with: 1. A diabetic foot infection, possible osteomyelitis. I would continue the vancomycin and Zosyn as ordered. Would follow up MRI and follow up with Podiatry. 2. CKD. 3. Diabetes with a history of AIN. Further recommendations to follow based on the MRI and culture results. ROMINA RODRIGUEZ M.D. [id number]
--- NOTE | 2018-03-17 19:03 | OP ---
Operative Note - Note: Operative Date: 03/17/18 Pre-Operative Diagnosis: Left second toe diabetic ulcer, osteomyelitis Operation: Left second toe partial amputation Post-Operative Diagnosis: Same as Pre-op Surgeon: Maxi Ybarra Anesthesia: Local, MAC Specimens Removed: Left second toe Estimated Blood Loss (mls): 10 Operative Report Dictated: Yes
[2018-03-17] MEDS ORDERED: oxyCODONE HCL 5 MG TABLET PO PRN ×2 (19:05→19:06)
[2018-03-17] MEDS ORDERED: PROMETHAZINE HCL 25 MG/1 ML VIAL IVPUSH PRN (19:06)
[2018-03-17] MEDS ORDERED: ONDANSETRON 4 MG/2 ML VIAL IVPUSH PRN (19:06)
[2018-03-17] MEDS ORDERED: MORPHINE SULFATE 2 MG/ML VIAL IVPUSH PRN (19:40)
[2018-03-17] MEDS: ATORVASTATIN CA 40 MG TABLET (FP) PO SCH (21:32)
[2018-03-17] MEDS: TAMSULOSIN HCL 0.4 MG CAP.ER.24H (FP) PO SCH (21:32)
[2018-03-18] MEDS ORDERED: PIPERACILLIN/TAZOBACTAM 3.375 GM VIAL IVPB ONE ×2 (00:13→17:15)
[2018-03-18] MEDS ORDERED: DEXTROSE 5%-WATER - 50 ML IVPB ONE ×2 (00:13→17:16)
--- NOTE | 2018-03-18 00:30 | OP ---
DATE OF OPERATION: 03/17/2018 PREOPERATIVE DIAGNOSIS: Left second toe diabetic ulcer and osteomyelitis. POSTOPERATIVE DIAGNOSIS: Left second toe diabetic ulcer and osteomyelitis. PROCEDURE: Left second toe partial amputation. SURGEON: Maxi Ybarra DPM [employer] SYSTEM: None. HEMOSTASIS: Pneumatic ankle tourniquet. ESTIMATED BLOOD LOSS: Minimal. PATHOLOGY: Left second toe. COMPLICATIONS: None. DESCRIPTION OF PROCEDURE: Patient was brought to the operating room and placed on the operating table in a supine position. I applied a pneumatic ankle tourniquet to the left ankle and set it to 250 mmHg. Following induction of IV sedation, local anesthesia was achieved utilizing 8 mL of 2% lidocaine plain. The left foot was scrubbed, prepped, and draped in the usual sterile fashion. The tourniquet was then inflated. Attention was directed to the left second toe, where a distal tuft diabetic ulcer probing to bone was visualized and appreciated. I began by performing a circumferential incision about the distal aspect of the second toe. The second toe was disarticulated at the level of the proximal interphalangeal joint. The distal second toe was then removed from the operative field and sent to pathology. Next, soft tissue attachments were freed from the head of the second proximal phalanx. The head of the second proximal phalanx was resected utilizing a sagittal saw. A portion of the bone was resected for bone pathology and the remainder for bone culture. Surgical site was copiously irrigated with sterile saline. The amputation tuft was coapted and maintained utilizing 3-0 nylon in a simple interrupted suture fashion. Following conclusion of the procedure, the surgical site was covered with Xeroform and a sterile compressive dressing was applied to the left foot consisting of sterile gauze, clean Kerlix, and Rene wrap. Tourniquet was deflated and immediate hyperemia returned to the left foot. Patient tolerated the procedure and anesthesia well without complications. He was transferred from the operating room to recovery unit with vital signs stable and neurovasculature intact to the left foot. GENEVIEVE [id number] cc: [facility] Podiatry
[2018-03-18] MEDS: PIPERACILLIN/TAZOB 3.375 GM 3.375 GM in DEXTROSE 5%-WATER - 50 ML IVPB SCH ×3 (02:25→17:19)
[2018-03-18] MEDS: HEPARIN NA (PORCINE) 5,000 UNITS/ML 1ML VIAL SQ SCH ×3 (06:26→21:47)
[2018-03-18] MEDS: GABAPENTIN 100 MG CAPSULE (FP) PO SCH ×3 (06:26→21:48)
[2018-03-18] MEDS: INSULIN SLIDING SCALE (NOVOLOG) 1 VIAL SQ SCH ×4 (06:27→21:47)
[2018-03-18] MEDS: FERROUS SO4 325 MG TABLET (FP) PO SCH ×2 (08:40→17:18)
[2018-03-18 09:03] LABS: BASO % 0.9 % (0-2.0); EOS % 5.7 % (0-4.5); HEMATOCRIT 29.8 % (35.4-49); HEMOGLOBIN 10.1 GM/dL (11.7-16.9); LYMPH % 16.2 % (8-40); MCH 28.1 pg (25.7-33.7); MCHC 33.9 g/dl (32.0-35.9); MEAN CELL VOLUME 82.8 fl (80-96); MEAN PLT VOLUME 7.6 fl (7.5-11.1); MONO % 5.9 % (3.8-10.2); NEUT % 71.3 % (42.8-82.8); PLATELET COUNT 299 K/MM3 (134-434); RDW 13.9 % (11.9-15.9); WHITE BLOOD COUNT 6.5 K/mm3 (4.0-10.0)
[2018-03-18 09:34] LABS: ANION GAP 8 MMOL/L (8-16); BLOOD UREA NITROGEN 18 mg/dL (7-18); CALCIUM 8.6 mg/dL (8.5-10.1); CHLORIDE 105 mmol/L (98-107); CO2 25 mmol/L (21-32); CREATININE 1.2 mg/dL (0.7-1.3); GLUCOSE,RANDOM 128 mg/dL (74-106); POTASSIUM 4.2 mmol/L (3.5-5.1); SODIUM 138 mmol/L (136-145)
[2018-03-18] MEDS ORDERED: PT OWN MED DRAWER 7, Y5N ONE (09:49)
--- NOTE | 2018-03-18 10:00 | PN ---
Progress Note (short form) - Note Progress Note: Anesthesia Post-op Note Pt s/p debridement of foot on 03/17/18. Reports he is feeling relatively well. Pain tolerable. Denies nausea/vomiting. Vital Signs Temperature 98.8 F 03/18/18 09:00 Pulse Rate 101 H 03/18/18 09:00 Respiratory Rate 18 03/18/18 09:00 Blood Pressure 109/45 03/18/18 09:00 O2 Sat by Pulse Oximetry (%) 100 03/17/18 21:00 Continue present management per primary team. Bowel regimen while on pain meds. OOB. Encourage ISS.
[2018-03-18] MEDS: POLYETHYLENE GLYCOL 3350 119 GM BTL PO SCH (10:26)
[2018-03-18] MEDS: SODIUM CHLORIDE 1,000 ML IV SCH (10:26)
[2018-03-18] MEDS: VANCOMYCIN 1 GM PREMIX - 1 GM/200 ML BAG IVPB SCH (11:15)
[2018-03-18] MEDS: oxyCODONE HCL 5 MG TABLET PO PRN (11:28)
--- NOTE | 2018-03-18 12:29 | PN ---
Progress Note (short form) - Note Progress Note: Podiatry F/U: Seen/evaluated at bedside NAD. Pain controlled, denies F/V/N/C/SOB/CP. Afebrile. S/p L 2nd digit partial amputation POD#1. JESSIE: L foot: dressing C/D/I, no active bleeding. Pedal pulses palpable, TG wnl. Sutures well coapted, no dehiscence noted, no purulent drainage, no fluctuance, no streaking cellulitis, no signs of active infection. Minimal tenderness to palpation. OR Cx: pending Imp: 57 year old DM M s/p L 2nd digit partial amputation POD#1 1. IV abx per ID 2. F/u OR cultures 3. DSD L foot 4. Partial WB L heel with surgical shoe 5. Will follow Elder Ybarra DPM
--- NOTE | 2018-03-18 12:56 | PN ---
Physical Exam: SUBJECTIVE: Patient seen and examined. No acute events overnight. Pt. had abdominal pain that he attributed to being NPO for the full day yesterday. Pt. denies any f/c/n/v/d, CP or SOB. OBJECTIVE: Vital Signs Period Temp Pulse Resp BP Sys/Garner Pulse Ox Last 24 Hr 97.6 F-98.8 F 64-101 16-18 109-180/45-96 98-100 GENERAL: The patient is awake, alert, and fully oriented, in no acute distress. LUNGS: Breath sounds equal, clear to auscultation bilaterally, no wheezes, no crackles, no accessory muscle use. HEART: Regular rate and rhythm, S1, S2 without murmur. ABDOMEN: Soft, nontender, nondistended, normoactive bowel sounds, no guarding, no rebound. EXTREMITIES: warm, well-perfused, no edema. PSYCH: Normal mood, normal affect. SKIN: Warm, dry Laboratory Results - last 24 hr 03/17/18 03/17/18 03/17/18 17:09 19:42 21:01 WBC RBC Hgb Hct MCV MCH MCHC RDW Plt Count MPV Absolute Neuts (auto) Neutrophils % Lymphocytes % Monocytes % Eosinophils % Basophils % Nucleated RBC % Sodium Potassium Chloride Carbon Dioxide Anion Gap BUN Creatinine Creat Clearance w eGFR POC Glucometer 102 106 108 Random Glucose Calcium 03/18/18 03/18/18 03/18/18 06:20 08:40 08:40 WBC 6.5 RBC 3.60 L Hgb 10.1 L Hct 29.8 L MCV 82.8 MCH 28.1 MCHC 33.9 RDW 13.9 Plt Count 299 MPV 7.6 Absolute Neuts (auto) 4.6 Neutrophils % 71.3 Lymphocytes % 16.2 Monocytes % 5.9 Eosinophils % 5.7 H Basophils % 0.9 Nucleated RBC % 0 Sodium 138 Potassium 4.2 Chloride 105 Carbon Dioxide 25 Anion Gap 8 BUN 18 Creatinine 1.2 Creat Clearance w eGFR > 60 POC Glucometer 115 Random Glucose 128 H Calcium 8.6 03/18/18 11:16 WBC RBC Hgb Hct MCV MCH MCHC RDW Plt Count MPV Absolute Neuts (auto) Neutrophils % Lymphocytes % Monocytes % Eosinophils % Basophils % Nucleated RBC % Sodium Potassium Chloride Carbon Dioxide Anion Gap BUN Creatinine Creat Clearance w eGFR POC Glucometer 247 Random Glucose Calcium Microbiology 03/16/18 01:10 Toe - Left Second Gram Stain - Final 03/16/18 01:10 Toe - Left Second Wound Culture - Preliminary Proteus Mirabilis Escherichia Coli Enterococcus Faecalis Pending Organism Pending Organism#2 03/15/18 23:10 Blood - Peripheral Venous Blood Culture - Preliminary NO GROWTH OBTAINED AFTER 48 HOURS, INCUBATION TO CONTINUE FOR 3 DAYS. 03/15/18 23:10 Blood - Peripheral Venous Blood Culture - Preliminary NO GROWTH OBTAINED AFTER 48 HOURS, INCUBATION TO CONTINUE FOR 3 DAYS. 03/15/18 21:30 Urine - Urine Clean Catch Urine Culture - Final NO GROWTH OBTAINED Active Medications Current Medications Atorvastatin Calcium (Lipitor -) 40 mg PO HS [facility] Last Admin: 03/17/18 21:32 Dose: 40 mg Ferrous Sulfate (Feosol -) 325 mg PO BIDWM [facility] Last Admin: 03/18/18 08:40 Dose: 325 mg Gabapentin (Neurontin -) 100 mg PO TID [facility] Last Admin: 03/18/18 06:26 Dose: 100 mg Heparin Sodium (Porcine) (Heparin -) 5,000 unit SQ TID [facility] Last Admin: 03/18/18 06:26 Dose: 5,000 unit Piperacillin Sod/Tazobactam (Sod 3.375 gm/ Dextrose) 50 mls @ 100 mls/hr IVPB Q8H-IV [facility]; Protocol Last Admin: 03/18/18 10:25 Dose: 100 mls/hr Sodium Chloride (Normal Saline -) 1,000 mls @ 75 mls/hr IV ASDIR [facility] Last Admin: 03/18/18 10:26 Dose: 75 mls/hr Vancomycin HCl (Vancomycin 1 Gm Premix -) 1 gm in 200 mls @ 133.333 mls/hr IVPB Q24H [facility]; Protocol Last Admin: 03/18/18 11:15 Dose: 133.333 mls/hr Insulin Aspart (Novolog Vial Sliding Scale -) 1 vial SQ ACHS [facility]; Protocol Last Admin: 03/18/18 11:17 Dose: 4 units Morphine Sulfate (Morphine Sulfate) 2 mg IVPUSH Q6H PRN PRN Reason: PAIN LEVEL 7 - 10 Oxycodone HCl (Roxicodone -) 5 mg PO Q4H PRN PRN Reason: PAIN LEVEL 1-5 Last Admin: 03/18/18 11:28 Dose: 5 mg Polyethylene Glycol (Miralax (For Daily Use) -) 17 gm PO DAILY [facility] Last Admin: 03/18/18 10:26 Dose: 17 gm Tamsulosin HCl (Flomax -) 0.8 mg PO HS [facility] Last Admin: 03/17/18 21:32 Dose: 0.8 mg IMAGING: - Left LE DUPLEX: There is no evidence of deep venous thrombosis in the left lower extremity. Wren's cyst in the left popliteal fossa measuring 3.4 x 1.5 cm - Left Foot XRay: Interval moderate soft tissue swelling over dorsal aspect of the foot and mild cortical irregularity at the site of amputation, mid first metatarsal level. Correlation with MRI of the left foot is needed in view of the clinical history to rule out osteomyelitis. - CT LE: As noted on conventional radiography performed 12/24/2017 the patient is status post amputation of the first digit as well as the head and neck of the first metatarsal bone. Calcified periosteal thickening has developed along the medial and lateral aspects of the residual distal portion of the first metatarsal bone. No obvious focal bone erosion is noted. If there is clinical concern for possible osteomyelitis additional evaluation utilizing MRI is suggested. concentric subcutaneous edema is seen along the left foot and ankle and to a lesser extent also involving the contralateral foot/ankle. This subcutaneous edema could be on the basis of cellulitis. Incidental note is made of moderate subtalar arthritic change involving the right ankle. - MRI LE: Marked soft tissue edema of the foot. Amputation of the first digit the level of the mid metatarsal with adjacent fluid and soft tissue edema. Focal increased T2 signal/bone marrow edema of the residual distal aspect of the first metatarsal which could be postoperative or consistent with osteomyelitis. Open wound along the dorsal aspect of the distal phalanx of the second toe. Bone marrow edema of the middle and distal phalanges of the second toe consistent with osteomyelitis. Question of mild bone marrow edema of the distal aspect of the proximal phalanx of the second toe and of the second metatarsal head which may be reactive however osteomyelitis cannot be excluded. Bone marrow edema of the base of the second metatarsal which may be neuropathic however osteomyelitis cannot be excluded. ASSESSMENT/PLAN: Patient is a 57 year old male with past medical history of HTN, DM , BPH and left great toe osteomyelitis s/p amputation (12/2017), presented with painful left second toe. 1. Left Second Digit Ulcer - Ulcer present on the tip of the Left 2nd digit, tender to palpation with mild , malodorous purulent discharge - XRay and CT Noted above - MRI LE: Bone marrow edema of the middle and distal phalanges of the second toe consistent with osteomyelitis. - CRP: 2.3 H - ESR: 69 H - Blood and wound cultures pending - Continue Vancomycin 1000mg (Day 4) - Continue Zosyn (Day 4) - Podiatry (Dr. Ybarra) consulted, appreciate rec's, IV abx per ID, DSD L foot, If MRI (+) would benefit from partial amputation second digit. - ID (Dr. Pike) consulted, appreciate rec's - Pt. completed partial second toe amputation at 6PM (03/17/18) - F/u bone and tissue Cx. from amputation - Podiatry consult appreciated for post-op management - Please call Microbiology in the AM of (03/19/18) and ask to look at the proximal margins of the amputation and tell if it was clean or not. This will help guide antibiotic management. 2. JASWINDER vs CKD - BUN 25 Cr 1.5 - Acute Interstitial Nephritis during previous admission (12/2017), Likely due to Bactrim and Amoxicillin use, treated with steroids. Pt again took 2 tabs of Bactrim and 2 tabs of Amoxicillin before visiting ED - Continue Normal Saline @ 75 mls/hr IV - Nephrology (Dr. Rudolph) consulted, appreciate rec's, no eosinophils to suggest on going AIN at this time, will hold ARB at this time, check iron studies, Would start CCB/BB for hypertension if needed while off ARB - Pt. currently at upper limit of baseline, based off prior creatinine results from prior admissions 3. DM - Uncontrolled - hold Home meds - ISS BGM ACHS 4. Hypertension - Controlled - Hold Furosemide, HCTZ and Losartan (nephrotoxic) - Consider Amlodipine if BP elevated 5. FEN - Normal Saline @ 75 mls/hr IV - lytes wnl - diabetic/sodium restricted diet 6. PPx - DVT: Heparin 5000 units sq tid Visit type - Emergency Visit Emergency Visit: Yes ED Registration Date: 03/16/18 Care time: The patient presented to the Emergency Department on the above date and was hospitalized for further evaluation of their emergent condition. - New Patient This patient is new to me today: No - Critical Care Critical Care patient: No - Discharge Referral Referred to [facility] Med [facility].: No
--- NOTE | 2018-03-18 13:44 | PN ---
Teaching Attending Note Name of Resident: Nash Tavarez ATTENDING PHYSICIAN STATEMENT I saw and evaluated the patient. I reviewed the resident's note and discussed the case with the resident. I agree with the resident's findings and plan as documented. SUBJECTIVE:mild pain on when ambulating. does not require pain medications. denies CP, SOB, fever, chills, N/v/C/D OBJECTIVE: Last Vital Signs Temp Pulse Resp BP Pulse Ox 98.8 F 101 H 18 109/45 98 03/18/18 09:00 03/18/18 09:00 03/18/18 09:00 03/18/18 09:00 03/18/18 10:00 General NAD Extremities L foot bandaged c/d/i ASSESSMENT AND PLAN: 57yo M with PMH DM, HTN, L foot OM s/p 1st digit amputation earlier this year presenting with pain present in the 2nd digit 1. L foot 2nd digit OM-s/p L foot 2nd toe partial amputation 03/17. tolerated surgery well. no complications. awaiting to hear further recs from podiatry and if clean margins were obtained. on vanco/zosyn day 4. 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 ID and podiatry on board. pain control. PT post-op 2. JASWINDER- Fena >1 however is also on lasix. resolved. mild improvement. will re- start cozaar at reduced dose. nephrology on board 3. Iron def anemia- Hgb stable. started iron supplements. will need repeat Iron studies in 3 months 4. DM- hold oral agents. bgm, ISS 5. HTN- controlled. will re-start cozaar at reduced dose. titrate as needed 6. DVT ppx- hep sq
--- NOTE | 2018-03-18 17:51 | PN ---
Progress Note (short form) - Note Progress Note: Renal follow up for JASWINDER Pt seen and examined at the bedside no acute complaints s/p amputation no fever, chills, sob, cp, abd pain, N/V/D Vital Signs Temperature 98.4 F 03/18/18 15:34 Pulse Rate 70 03/18/18 15:34 Respiratory Rate 18 03/18/18 15:34 Blood Pressure 147/81 03/18/18 15:34 O2 Sat by Pulse Oximetry (%) 98 03/18/18 10:00 Intake & Output 03/15/18 03/16/18 03/17/18 03/18/18 23:59 23:59 23:59 23:59 Intake Total 800 3250 800 Output Total 1110 1875 Balance 800 2140 -1075 Weight 80.739 kg 79.858 kg NAD RRR CTA soft NT/ND no LE edema no rash CBC, BMP 03/18/18 08:40 03/18/18 08:40 Current Medications Atorvastatin Calcium (Lipitor -) 40 mg PO HS [facility] Last Admin: 03/17/18 21:32 Dose: 40 mg Ferrous Sulfate (Feosol -) 325 mg PO BIDWM [facility] Last Admin: 03/18/18 17:18 Dose: 325 mg Gabapentin (Neurontin -) 100 mg PO TID [facility] Last Admin: 03/18/18 13:48 Dose: 100 mg Heparin Sodium (Porcine) (Heparin -) 5,000 unit SQ TID [facility] Last Admin: 03/18/18 13:48 Dose: 5,000 unit Piperacillin Sod/Tazobactam (Sod 3.375 gm/ Dextrose) 50 mls @ 100 mls/hr IVPB Q8H-IV [facility]; Protocol Last Admin: 03/18/18 17:19 Dose: 100 mls/hr Sodium Chloride (Normal Saline -) 1,000 mls @ 75 mls/hr IV ASDIR [facility] Last Admin: 03/18/18 10:26 Dose: 75 mls/hr Vancomycin HCl (Vancomycin 1 Gm Premix -) 1 gm in 200 mls @ 133.333 mls/hr IVPB Q24H [facility]; Protocol Last Admin: 03/18/18 11:15 Dose: 133.333 mls/hr Insulin Aspart (Novolog Vial Sliding Scale -) 1 vial SQ ACHS [facility]; Protocol Last Admin: 03/18/18 17:26 Dose: 2 units Morphine Sulfate (Morphine Sulfate) 2 mg IVPUSH Q6H PRN PRN Reason: PAIN LEVEL 7 - 10 Oxycodone HCl (Roxicodone -) 5 mg PO Q4H PRN PRN Reason: PAIN LEVEL 1-5 Last Admin: 03/18/18 11:28 Dose: 5 mg Polyethylene Glycol (Miralax (For Daily Use) -) 17 gm PO DAILY [facility] Last Admin: 03/18/18 10:26 Dose: 17 gm Tamsulosin HCl (Flomax -) 0.8 mg PO HS [facility] Last Admin: 03/17/18 21:32 Dose: 0.8 mg 57 year old gentleman with Hx of Hypertension, DM Type 2, PVD, Osteomylitis of LE, recent JASWINDER secondary to AIN who presents with pain and swelling of his toes and found to have Cr of 1.5 #JASWINDER vs. CKD (from AIN vs. Contrast nephropathy vs. volume depletion) #LE Osteomylitis #DM #Hypertension #Anemia Renal function improved and stable continue to hold ARB for now given pt has newly developed eosinophilia and ths could potentially develop AIN similiar to last admission continue NS for now Abx as per ID trend renal function and electrolytes Thank you Rufino Rudolph DO
[2018-03-18] MEDS ORDERED: INSULIN (NOVOLOG) ASPART 100 UNITS/ML 10ML VIAL ONE (21:29)
[2018-03-18] MEDS: ATORVASTATIN CA 40 MG TABLET (FP) PO SCH (21:48)
[2018-03-18] MEDS: TAMSULOSIN HCL 0.4 MG CAP.ER.24H (FP) PO SCH (21:48)
[2018-03-19] MEDS ORDERED: DEXTROSE 5%-WATER - 50 ML IVPB ONE ×3 (01:29→17:18)
[2018-03-19] MEDS ORDERED: PIPERACILLIN/TAZOBACTAM 3.375 GM VIAL IVPB ONE ×3 (01:29→17:18)
[2018-03-19] MEDS: PIPERACILLIN/TAZOB 3.375 GM 3.375 GM in DEXTROSE 5%-WATER - 50 ML IVPB SCH ×3 (02:40→17:32)
[2018-03-19] MEDS: INSULIN SLIDING SCALE (NOVOLOG) 1 VIAL SQ SCH ×4 (06:42→21:55)
[2018-03-19] MEDS: SODIUM CHLORIDE 1,000 ML IV SCH (06:42)
[2018-03-19] MEDS: HEPARIN NA (PORCINE) 5,000 UNITS/ML 1ML VIAL SQ SCH ×3 (06:42→21:55)
[2018-03-19] MEDS: GABAPENTIN 100 MG CAPSULE (FP) PO SCH ×3 (06:42→21:57)
[2018-03-19] MEDS ORDERED: INSULIN (NOVOLOG) ASPART 100 UNITS/ML 10ML VIAL ONE (08:11)
[2018-03-19] MEDS: FERROUS SO4 325 MG TABLET (FP) PO SCH ×2 (08:33→17:32)
[2018-03-19] MEDS ORDERED: LOSARTAN POTASSIUM 25 MG TABLET PO SCH (10:00)
[2018-03-19 10:33] LABS: BASO % 0.9 % (0-2.0); EOS % 5.5 % (0-4.5); HEMATOCRIT 30.2 % (35.4-49); HEMOGLOBIN 10.1 GM/dL (11.7-16.9); LYMPH % 14.5 % (8-40); MCH 27.7 pg (25.7-33.7); MCHC 33.3 g/dl (32.0-35.9); MEAN CELL VOLUME 83.2 fl (80-96); MEAN PLT VOLUME 7.6 fl (7.5-11.1); MONO % 6.4 % (3.8-10.2); NEUT % 72.7 % (42.8-82.8); PLATELET COUNT 265 K/MM3 (134-434); RBC 3.63 M/mm3 (4.00-5.60); RDW 13.9 % (11.9-15.9); WHITE BLOOD COUNT 5.9 K/mm3 (4.0-10.0)
[2018-03-19 10:47] LABS: ANION GAP 8 MMOL/L (8-16); BLOOD UREA NITROGEN 21 mg/dL (7-18); CALCIUM 8.2 mg/dL (8.5-10.1); CHLORIDE 106 mmol/L (98-107); CO2 24 mmol/L (21-32); CREATININE 1.3 mg/dL (0.7-1.3); GLUCOSE,RANDOM 270 mg/dL (74-106); POTASSIUM 4.3 mmol/L (3.5-5.1); SODIUM 138 mmol/L (136-145)
[2018-03-19] MEDS: VANCOMYCIN 1 GM PREMIX - 1 GM/200 ML BAG IVPB SCH (11:22)
[2018-03-19] MEDS: POLYETHYLENE GLYCOL 3350 119 GM BTL PO SCH (11:23)
--- NOTE | 2018-03-19 11:38 | PN ---
Teaching Attending Note Name of Resident: Maren Colbert ATTENDING PHYSICIAN STATEMENT I saw and evaluated the patient. I reviewed the resident's note and discussed the case with the resident. I agree with the resident's findings and plan as documented. SUBJECTIVE:asymptomatic. denies CP, SOB, fever, chills, N/V/C/D OBJECTIVE: Last Vital Signs Temp Pulse Resp BP Pulse Ox 97.9 F 69 18 146/83 99 03/19/18 07:52 03/19/18 07:52 03/19/18 07:52 03/19/18 07:52 03/18/18 21:00 General NAD Extremities L foot 1st digit no drainage or fluctance +sutures in place 2nd toe with partial amputation good approximation of skin. minimal blood oozing no pus drainage. skin is not boggy ASSESSMENT AND PLAN: 57yo M with PMH DM, HTN, L foot OM s/p 1st digit amputation earlier this year presenting with pain present in the 2nd digit 1. L foot 2nd digit OM-s/p L foot 2nd toe partial amputation 03/17. tolerated surgery well. no complications. awaiting to hear further recs from podiatry and if clean margins were obtained. on vanco/zosyn day 5. check vanco level prior to dose today and adjust as needed. will f/u Bone Cx and determine if pt will require skilled nursing abx. ID and podiatry on board. pain control. PT post-op 2. JASWINDER- Fena >1 however is also on lasix. resolved. nephrology on board 3. Iron def anemia- Hgb stable. on iron supplements. will need repeat Iron studies in 3 months 4. DM- hold oral agents. bgm, ISS 5. HTN- controlled off medications. titrate as needed 6. DVT ppx- hep sq
--- NOTE | 2018-03-19 15:08 | PN ---
Physical Exam: SUBJECTIVE: Patient seen and examined this morning. No New complaints. No overnight events as per nursing staff. Denies fevers, chills, chest pain, SOB, nausea, vomiting. OBJECTIVE: Vital Signs Period Temp Pulse Resp BP Sys/Garner Pulse Ox Last 24 Hr 97.6 F-98.4 F 69-78 18-18 136-147/70-84 99 GENERAL: The patient is awake, alert, and fully oriented, in no acute distress. EYES: PERRL, EOMI THROAT: oropharynx clear without exudates, moist mucous membranes. NECK: Supple, No JVD LUNGS: Breath sounds equal, clear to auscultation bilaterally, no wheezes HEART: Regular rate and rhythm, S1, S2 without murmur, rub or gallop. ABDOMEN: Soft, nontender, nondistended, normoactive bowel sounds EXTREMITIES: Left foot wrapped in bandage, Left Great toe amputation site with minimal serous drainage, no surrounding erythema or tenderness. Left 2nd digit with sutures and minimal drainage from site of partial amputation, Minimal tenderness to palpation. SKIN: Warm, dry, no rashes or lesions noted Laboratory Results - last 24 hr 03/19/18 03/19/18 03/19/18 10:10 10:10 10:10 WBC 5.9 RBC 3.63 L Hgb 10.1 L Hct 30.2 L MCV 83.2 MCH 27.7 MCHC 33.3 RDW 13.9 Plt Count 265 MPV 7.6 Absolute Neuts (auto) 4.3 Neutrophils % 72.7 Lymphocytes % 14.5 Monocytes % 6.4 Eosinophils % 5.5 H Basophils % 0.9 Nucleated RBC % 0 Sodium 138 Potassium 4.3 Chloride 106 Carbon Dioxide 24 Anion Gap 8 BUN 21 H Creatinine 1.3 Creat Clearance w eGFR 57.10 POC Glucometer Random Glucose 270 H D Calcium 8.2 L Vancomycin Pre-Dose 12.37 H Microbiology 03/17/18 20:00 Bone Gram Stain - Final 03/17/18 20:00 Bone Tissue Culture - Preliminary Lactose Fermenting Neg Bacilli Proteus Species Group D Strep Or Entero Coccus Pending Organism Pending Organism#2 03/17/18 20:00 Tissue-Other Gram Stain - Final 03/17/18 20:00 Tissue-Other Tissue Culture - Preliminary NO AEROBIC GROWTH, 24 HRS 03/15/18 23:10 Blood - Peripheral Venous Blood Culture - Preliminary NO GROWTH OBTAINED AFTER 72 HOURS, INCUBATION TO CONTINUE FOR 2 DAYS. 03/15/18 23:10 Blood - Peripheral Venous Blood Culture - Preliminary NO GROWTH OBTAINED AFTER 72 HOURS, INCUBATION TO CONTINUE FOR 2 DAYS. 03/16/18 01:10 Toe - Left Second Gram Stain - Final 03/16/18 01:10 Toe - Left Second Wound Culture - Final Proteus Mirabilis Escherichia Coli Enterococcus Faecalis Staphylococcus Coagulase Neg Streptococcus Viridans 03/15/18 21:30 Urine - Urine Clean Catch Urine Culture - Final NO GROWTH OBTAINED Active Medications Atorvastatin Calcium (Lipitor -) 40 mg PO HS [facility] Last Admin: 03/18/18 21:48 Dose: 40 mg Ferrous Sulfate (Feosol -) 325 mg PO BIDWM [facility] Last Admin: 03/19/18 08:33 Dose: 325 mg Gabapentin (Neurontin -) 100 mg PO TID [facility] Last Admin: 03/19/18 06:42 Dose: 100 mg Heparin Sodium (Porcine) (Heparin -) 5,000 unit SQ TID [facility] Last Admin: 03/19/18 06:42 Dose: 5,000 unit Piperacillin Sod/Tazobactam (Sod 3.375 gm/ Dextrose) 50 mls @ 100 mls/hr IVPB Q8H-IV [facility]; Protocol Last Admin: 03/19/18 11:22 Dose: 100 mls/hr Vancomycin HCl (Vancomycin 1 Gm Premix -) 1 gm in 200 mls @ 133.333 mls/hr IVPB Q24H [facility]; Protocol Last Admin: 03/19/18 11:22 Dose: 133.333 mls/hr Insulin Aspart (Novolog Vial Sliding Scale -) 1 vial SQ ACHS [facility]; Protocol Last Admin: 03/19/18 12:47 Dose: 6 units Oxycodone HCl (Roxicodone -) 5 mg PO Q4H PRN PRN Reason: PAIN LEVEL 1-5 Last Admin: 03/18/18 11:28 Dose: 5 mg Polyethylene Glycol (Miralax (For Daily Use) -) 17 gm PO DAILY [facility] Last Admin: 03/19/18 11:23 Dose: 17 gm Tamsulosin HCl (Flomax -) 0.8 mg PO HS [facility] Last Admin: 03/18/18 21:48 Dose: 0.8 mg IMAGING: - Left LE DUPLEX: There is no evidence of deep venous thrombosis in the left lower extremity. Wren's cyst in the left popliteal fossa measuring 3.4 x 1.5 cm - Left Foot XRay: Interval moderate soft tissue swelling over dorsal aspect of the foot and mild cortical irregularity at the site of amputation, mid first metatarsal level. Correlation with MRI of the left foot is needed in view of the clinical history to rule out osteomyelitis. - CT LE: As noted on conventional radiography performed 12/24/2017 the patient is status post amputation of the first digit as well as the head and neck of the first metatarsal bone. Calcified periosteal thickening has developed along the medial and lateral aspects of the residual distal portion of the first metatarsal bone. No obvious focal bone erosion is noted. If there is clinical concern for possible osteomyelitis additional evaluation utilizing MRI is suggested. concentric subcutaneous edema is seen along the left foot and ankle and to a lesser extent also involving the contralateral foot/ankle. This subcutaneous edema could be on the basis of cellulitis. Incidental note is made of moderate subtalar arthritic change involving the right ankle. - MRI LE: Marked soft tissue edema of the foot. Amputation of the first digit the level of the mid metatarsal with adjacent fluid and soft tissue edema. Focal increased T2 signal/bone marrow edema of the residual distal aspect of the first metatarsal which could be postoperative or consistent with osteomyelitis. Open wound along the dorsal aspect of the distal phalanx of the second toe. Bone marrow edema of the middle and distal phalanges of the second toe consistent with osteomyelitis. Question of mild bone marrow edema of the distal aspect of the proximal phalanx of the second toe and of the second metatarsal head which may be reactive however osteomyelitis cannot be excluded. Bone marrow edema of the base of the second metatarsal which may be neuropathic however osteomyelitis cannot be excluded. ASSESSMENT/PLAN: Patient is a 57 year old male with past medical history of HTN, DM , BPH and left great toe osteomyelitis s/p amputation (12/2017), presented with painful left second toe s/p Partial second toe amputation (03/17/18) 1. Left Second Digit Ulcer s/p partial second toe amputation POD#2 (03/17/18) - Ulcer was present on the tip of the Left 2nd digit, tender to palpation with mild, malodorous purulent discharge - Surgery was tolerated well without complications at this time - Need to call Pathology thursday final report if proximal margins of amputation are clean - XRay and CT Noted above - MRI LE: Bone marrow edema of the middle and distal phalanges of the second toe consistent with osteomyelitis. - CRP: 2.3 H - ESR: 69 H - Blood and wound cultures pending - Continue Vancomycin 1000mg (Day 5) - Continue Zosyn (Day 5) - Podiatry (Dr. Ybarra) consulted, appreciate rec's, IV abx per ID, DSD L foot, Will follow futher post-op rec's. - ID (Dr. Pike) consulted, appreciate rec's - Pain control via Oxycodone 5 mg PO Q4H PRN 2. JASWINDER vs CKD - Resolved - Acute Interstitial Nephritis during previous admission (12/2017), Likely due to Bactrim and Amoxicillin use, treated with steroids. Pt again took 2 tabs of Bactrim and 2 tabs of Amoxicillin before visiting ED - D/C'ed Normal Saline @ 75 mls/hr IV - Nephrology (Dr. Rudolph) consulted, appreciate rec's, no eosinophils to suggest on going AIN at this time, will hold ARB at this time, check iron studies, Would start CCB/BB for hypertension if needed while off ARB 3. DM - Uncontrolled - hold Home meds - ISS BGM ACHS 4. Hypertension - Controlled - Hold Furosemide, HCTZ and Losartan (nephrotoxic) - Consider Amlodipine if BP elevated 5. FEN - PO Fluid - lytes wnl - diabetic/sodium restricted diet 6. PPx - DVT: Heparin 5000 units sq tid Visit type - Emergency Visit Emergency Visit: Yes ED Registration Date: 03/16/18 Care time: The patient presented to the Emergency Department on the above date and was hospitalized for further evaluation of their emergent condition. - New Patient This patient is new to me today: No - Critical Care Critical Care patient: No
--- NOTE | 2018-03-19 17:41 | PN ---
Progress Note (short form) - Note Progress Note: Renal follow up for JASWINDER Pt seen and examined at the bedside no acute complaints Vital Signs Temperature 98.3 F 03/19/18 14:42 Pulse Rate 75 03/19/18 14:42 Respiratory Rate 18 03/19/18 14:42 Blood Pressure 161/95 03/19/18 14:42 O2 Sat by Pulse Oximetry (%) 99 03/18/18 21:00 Intake & Output 03/16/18 03/17/18 03/18/18 03/19/18 23:59 23:59 23:59 23:59 Intake Total 800 3250 2650 1600 Output Total 1110 2675 900 Balance 800 2140 -25 700 Weight 79.858 kg RRR CTA soft NT/ND no LE edema no rash 57 year old gentleman with Hx of Hypertension, DM Type 2, PVD, Osteomylitis of LE, recent JASWINDER secondary to AIN who presents with pain and swelling of his toes and found to have Cr of 1.5 #JASWINDER vs. CKD (from AIN vs. Contrast nephropathy vs. volume depletion) #LE Osteomylitis #DM #Hypertension #Anemia Renal function improved and stable thus far continue to trend BUN/Cr and electrolyses peripheral eosinphilia present pt is non-oliguric and evolemic at the present time Thank you Rufino Rudolph DO
[2018-03-19] MEDS: ATORVASTATIN CA 40 MG TABLET (FP) PO SCH (21:56)
[2018-03-19] MEDS: TAMSULOSIN HCL 0.4 MG CAP.ER.24H (FP) PO SCH (21:56)
[2018-03-20] MEDS ORDERED: DEXTROSE 5%-WATER - 50 ML IVPB ONE ×3 (00:52→19:43)
[2018-03-20] MEDS ORDERED: PIPERACILLIN/TAZOBACTAM 3.375 GM VIAL IVPB ONE ×3 (00:52→19:43)
[2018-03-20] MEDS: PIPERACILLIN/TAZOB 3.375 GM 3.375 GM in DEXTROSE 5%-WATER - 50 ML IVPB SCH ×3 (02:00→19:15)
[2018-03-20] MEDS: INSULIN SLIDING SCALE (NOVOLOG) 1 VIAL SQ SCH ×4 (06:38→21:40)
[2018-03-20] MEDS: HEPARIN NA (PORCINE) 5,000 UNITS/ML 1ML VIAL SQ SCH ×3 (06:39→21:05)
[2018-03-20] MEDS: GABAPENTIN 100 MG CAPSULE (FP) PO SCH ×3 (06:39→21:05)
[2018-03-20 07:57] LABS: ANION GAP 9 MMOL/L (8-16); BLOOD UREA NITROGEN 22 mg/dL (7-18); CALCIUM 8.7 mg/dL (8.5-10.1); CHLORIDE 107 mmol/L (98-107); CO2 25 mmol/L (21-32); GLUCOSE,RANDOM 127 mg/dL (74-106); POTASSIUM 4.3 mmol/L (3.5-5.1); SODIUM 141 mmol/L (136-145)
[2018-03-20 08:00] LABS: CREATININE 1.3 mg/dL (0.7-1.3); PHOSPHOROUS 5.1 mg/dL (2.5-4.9)
[2018-03-20] MEDS: FERROUS SO4 325 MG TABLET (FP) PO SCH ×2 (08:38→18:32)
[2018-03-20] MEDS: VANCOMYCIN 1 GM PREMIX - 1 GM/200 ML BAG IVPB SCH (11:16)
[2018-03-20] MEDS: POLYETHYLENE GLYCOL 3350 119 GM BTL PO SCH (11:17)
--- NOTE | 2018-03-20 13:42 | PN ---
Progress Note (short form) - Note Progress Note: Podiatry F/U: S/p L 2nd digit partial amputation. Afebrile, VSS. Waiting on path results. JESSIE: L foot: dressing C/D/I, no active bleeding. Sutures well coapted, no dehiscence , no purulence, no fluctuance, no periwound erythema, no streaking cellulitis, no signs of active infection. No tenderness to palpation. Bone Cx: P. Mirabilis, group d strep, pending orgs Path: pending Imp: 57 year old DM M s/p L 2nd digit partial amputation 1. IV abx 2. DSD L foot. Can keep dressing C/D/I through the weekend 3. Partial WB L heel with surgical shoe 4. F/U OR path 5. Will follow Elder Ybarra DPM
--- NOTE | 2018-03-20 14:27 | PN ---
Progress Note (short form) - Note Progress Note: asymptomatic. denies CP, SOB, fever, chills, N/V/C/D Current Medications Generic Name Dose Route Start Last Admin Trade Name Rickey PRN Reason Stop Dose Admin Atorvastatin Calcium 40 mg 03/17/18 22:00 03/19/18 21:56 Lipitor - PO 40 mg HS [facility] Administration Ferrous Sulfate 325 mg 03/18/18 08:00 03/20/18 08:38 Feosol - PO 325 mg BIDWM [facility] Administration Gabapentin 100 mg 03/17/18 22:00 03/20/18 13:34 Neurontin - PO 100 mg TID [facility] Administration Heparin Sodium (Porcine) 5,000 unit 03/17/18 22:00 03/20/18 13:34 Heparin - SQ 5,000 unit TID [facility] Administration Piperacillin Sod/Tazobactam 50 mls @ 100 mls/hr 03/18/18 02:00 03/20/18 11:16 Sod 3.375 gm/ Dextrose IVPB 100 mls/hr Q8H-IV [facility] Administration Protocol Vancomycin HCl 1 gm in 200 mls @ 133.333 mls/hr 03/18/18 10:00 03/20/18 11:16 Vancomycin 1 Gm Premix - IVPB 133.333 mls/hr Q24H [facility] Administration Protocol Insulin Aspart 1 vial 03/17/18 22:00 03/20/18 12:00 Novolog Vial Sliding Scale - SQ 6 units ACHS [facility] Administration Protocol Oxycodone HCl 5 mg 03/17/18 19:40 03/18/18 11:28 Roxicodone - PO 5 mg Q4H PRN Administration PAIN LEVEL 1-5 Polyethylene Glycol 17 gm 03/18/18 10:00 03/20/18 11:17 Miralax (For Daily Use) - PO 17 gm DAILY [facility] Administration Tamsulosin HCl 0.8 mg 03/17/18 22:00 03/19/18 21:56 Flomax - PO 0.8 mg HS [facility] Administration Last Vital Signs Temp Pulse Resp BP Pulse Ox 97.8 F 75 20 148/87 99 03/20/18 05:47 03/20/18 05:47 03/20/18 05:47 03/20/18 05:47 03/19/18 21:00 General NAD Extremities L foot wrapped c/d/i CBCD WBC 5.9 K/mm3 (4.0-10.0) 03/19/18 10:10 RBC 3.63 M/mm3 (4.00-5.60) L 03/19/18 10:10 Hgb 10.1 GM/dL (11.7-16.9) L 03/19/18 10:10 Hct 30.2 % (35.4-49) L 03/19/18 10:10 MCV 83.2 fl (80-96) 03/19/18 10:10 MCHC 33.3 g/dl (32.0-35.9) 03/19/18 10:10 RDW 13.9 % (11.9-15.9) 03/19/18 10:10 Plt Count 265 K/MM3 (134-434) 03/19/18 10:10 MPV 7.6 fl (7.5-11.1) 03/19/18 10:10 CMP Sodium 141 mmol/L (136-145) 03/20/18 06:00 Potassium 4.3 mmol/L (3.5-5.1) 03/20/18 06:00 Chloride 107 mmol/L (98-107) 03/20/18 06:00 Carbon Dioxide 25 mmol/L (21-32) 03/20/18 06:00 Anion Gap 9 MMOL/L (8-16) 03/20/18 06:00 BUN 22 mg/dL (7-18) H 03/20/18 06:00 Creatinine 1.3 mg/dL (0.7-1.3) 03/20/18 06:00 Creat Clearance w eGFR 57.10 (>60) 03/20/18 06:00 Calcium 8.7 mg/dL (8.5-10.1) 03/20/18 06:00 Total Bilirubin 0.4 mg/dL (0.2-1.0) 03/17/18 06:30 AST 13 U/L (15-37) L 03/17/18 06:30 ALT 18 U/L (12-78) 03/17/18 06:30 Alkaline Phosphatase 87 U/L (45-117) D 03/17/18 06:30 Total Protein 7.6 g/dl (6.4-8.2) 03/17/18 06:30 Albumin 3.2 g/dl (3.4-5.0) L 03/17/18 06:30 ASSESSMENT AND PLAN: 57yo M with PMH DM, HTN, L foot OM s/p 1st digit amputation earlier this year presenting with pain present in the 2nd digit 1. L foot 2nd digit OM-s/p L foot 2nd toe partial amputation 03/17. tolerated surgery well. no complications. awaiting to hear further recs from podiatry and if clean margins were obtained. on vanco/zosyn day 6. will f/u Bone Cx and determine if pt will require buttermaker abx. ID and podiatry on board. pain control. PT post-op 2. JASWINDER- Fena >1 however is also on lasix. resolved. nephrology on board 3. Iron def anemia- Hgb stable. on iron supplements. will need repeat Iron studies in 3 months 4. DM- hold oral agents. bgm, ISS 5. HTN- controlled off medications. titrate as needed 6. DVT ppx- hep sq Visit type - Emergency Visit Emergency Visit: Yes ED Registration Date: 03/16/18 Care time: The patient presented to the Emergency Department on the above date and was hospitalized for further evaluation of their emergent condition. - New Patient This patient is new to me today: No - Critical Care Critical Care patient: No - Discharge Referral Referred to [facility] No
--- NOTE | 2018-03-20 15:00 | PN ---
Progress Note (short form) - Note Progress Note: s/p lilli foot wound peripheral eosinophilia recent ain 2/2 ppi Current Medications Atorvastatin Calcium (Lipitor -) 40 mg PO HS [facility] Last Admin: 03/19/18 21:56 Dose: 40 mg Ferrous Sulfate (Feosol -) 325 mg PO BIDWM [facility] Last Admin: 03/20/18 08:38 Dose: 325 mg Gabapentin (Neurontin -) 100 mg PO TID [facility] Last Admin: 03/20/18 13:34 Dose: 100 mg Heparin Sodium (Porcine) (Heparin -) 5,000 unit SQ TID [facility] Last Admin: 03/20/18 13:34 Dose: 5,000 unit Piperacillin Sod/Tazobactam (Sod 3.375 gm/ Dextrose) 50 mls @ 100 mls/hr IVPB Q8H-IV [facility]; Protocol Last Admin: 03/20/18 11:16 Dose: 100 mls/hr Vancomycin HCl (Vancomycin 1 Gm Premix -) 1 gm in 200 mls @ 133.333 mls/hr IVPB Q24H [facility]; Protocol Last Admin: 03/20/18 11:16 Dose: 133.333 mls/hr Insulin Aspart (Novolog Vial Sliding Scale -) 1 vial SQ ACHS [facility]; Protocol Last Admin: 03/20/18 12:00 Dose: 6 units Oxycodone HCl (Roxicodone -) 5 mg PO Q4H PRN PRN Reason: PAIN LEVEL 1-5 Last Admin: 03/18/18 11:28 Dose: 5 mg Polyethylene Glycol (Miralax (For Daily Use) -) 17 gm PO DAILY [facility] Last Admin: 03/20/18 11:17 Dose: 17 gm Tamsulosin HCl (Flomax -) 0.8 mg PO HS [facility] Last Admin: 03/19/18 21:56 Dose: 0.8 mg Last Vital Signs Temp Pulse Resp BP Pulse Ox 97.8 F 75 20 148/87 99 03/20/18 05:47 03/20/18 05:47 03/20/18 05:47 03/20/18 05:47 03/19/18 21:00 CBC, BMP 03/19/18 10:10 03/20/18 06:00 IMP- prerenal azotemia Plan continue same rx
[2018-03-20] MEDS: TAMSULOSIN HCL 0.4 MG CAP.ER.24H (FP) PO SCH (21:05)
[2018-03-20] MEDS: ATORVASTATIN CA 40 MG TABLET (FP) PO SCH (21:05)
[2018-03-20] MEDS: oxyCODONE HCL 5 MG TABLET PO PRN (21:43)
[2018-03-21] MEDS ORDERED: PIPERACILLIN/TAZOBACTAM 3.375 GM VIAL IVPB ONE ×3 (00:47→17:06)
[2018-03-21] MEDS ORDERED: DEXTROSE 5%-WATER - 50 ML IVPB ONE ×3 (00:47→17:06)
[2018-03-21] MEDS: PIPERACILLIN/TAZOB 3.375 GM 3.375 GM in DEXTROSE 5%-WATER - 50 ML IVPB SCH ×3 (01:54→17:20)
[2018-03-21] MEDS: GABAPENTIN 100 MG CAPSULE (FP) PO SCH ×3 (05:36→21:13)
[2018-03-21] MEDS: HEPARIN NA (PORCINE) 5,000 UNITS/ML 1ML VIAL SQ SCH ×3 (05:37→21:13)
[2018-03-21] MEDS: INSULIN SLIDING SCALE (NOVOLOG) 1 VIAL SQ SCH ×4 (06:13→21:13)
--- NOTE | 2018-03-21 10:01 | PN ---
Teaching Attending Note Name of Resident: Maren Colbert ATTENDING PHYSICIAN STATEMENT I saw and evaluated the patient. I reviewed the resident's note and discussed the case with the resident. I agree with the resident's findings and plan as documented. SUBJECTIVE: asymptomatic. denies Cp, SOB, fever, chills, N/V/C/D OBJECTIVE: Last Vital Signs Temp Pulse Resp BP Pulse Ox 98.8 F 71 18 129/51 99 03/21/18 07:49 03/21/18 07:49 03/21/18 07:49 03/21/18 07:49 03/20/18 09:00 ASSESSMENT AND PLAN: 57yo M with PMH DM, HTN, L foot OM s/p 1st digit amputation earlier this year presenting with pain present in the 2nd digit 1. L foot 2nd digit OM-s/p L foot 2nd toe partial amputation 03/17. tolerated surgery well. no complications. awaiting to hear further recs from podiatry and if clean margins were obtained. on vanco/zosyn day 7. will f/u Bone Cx and determine if pt will require group home abx. ID and podiatry on board. pain control. PT post-op 2. JASWINDER- Fena >1 however is also on lasix. resolved. nephrology on board 3. Iron def anemia- Hgb stable. on iron supplements. will need repeat Iron studies in 3 months 4. DM- hold oral agents. bgm, ISS 5. HTN- controlled off medications. titrate as needed 6. DVT ppx- hep sq 7. possible d/c home tomorrow pending results of bone cx
--- NOTE | 2018-03-21 11:30 | PN ---
Physical Exam: SUBJECTIVE: Patient seen and examined this morning. No New complaints. Denies fevers, chills, chest pain, SOB, nausea, vomiting. OBJECTIVE: Vital Signs Period Temp Pulse Resp BP Sys/Garner Pulse Ox Last 24 Hr 97.6 F-98.8 F 71-84 18-20 122-134/51-84 GENERAL: The patient is awake, alert, and fully oriented, in no acute distress. EYES: PERRL, EOMI THROAT: oropharynx clear without exudates, moist mucous membranes. NECK: Supple, No JVD LUNGS: Breath sounds equal, clear to auscultation bilaterally, no wheezes HEART: Regular rate and rhythm, S1, S2 without murmur, rub or gallop. ABDOMEN: Soft, nontender, nondistended, normoactive bowel sounds EXTREMITIES: Left foot wrapped in bandage, Left Great toe amputation site with minimal serous drainage, no surrounding erythema or tenderness. Left 2nd digit wound site with sutures intact, minimal drainage from site of partial amputation , Minimal tenderness to palpation. SKIN: Warm, dry, no rashes or lesions noted Laboratory Results - last 24 hr 03/20/18 03/20/18 03/20/18 11:23 17:33 21:36 POC Glucometer 299 98 238 03/21/18 05:35 POC Glucometer 118 Microbiology 03/15/18 23:10 Blood - Peripheral Venous Blood Culture - Final NO GROWTH AFTER 5 DAYS INCUBATION 03/15/18 23:10 Blood - Peripheral Venous Blood Culture - Final NO GROWTH AFTER 5 DAYS INCUBATION 03/17/18 20:00 Bone Gram Stain - Final 03/17/18 20:00 Bone Tissue Culture - Preliminary Escherichia Coli Proteus Mirabilis Group D Strep Or Entero Coccus 03/17/18 20:00 Bone Anaerobic Culture - Final NO ANAEROBES WERE ISOLATED 03/17/18 20:00 Tissue-Other Gram Stain - Final 03/17/18 20:00 Tissue-Other Tissue Culture - Preliminary Staphylococcus Coagulase Neg 03/17/18 20:00 Tissue-Other Anaerobic Culture - Final NO ANAEROBES WERE ISOLATED 03/16/18 01:10 Toe - Left Second Gram Stain - Final 03/16/18 01:10 Toe - Left Second Wound Culture - Final Proteus Mirabilis Escherichia Coli Enterococcus Faecalis Staphylococcus Coagulase Neg Streptococcus Viridans 03/15/18 21:30 Urine - Urine Clean Catch Urine Culture - Final NO GROWTH OBTAINED Active Medications Atorvastatin Calcium (Lipitor -) 40 mg PO HS [facility] Last Admin: 03/20/18 21:05 Dose: 40 mg Ferrous Sulfate (Feosol -) 325 mg PO BIDWM [facility] Last Admin: 03/20/18 18:32 Dose: 325 mg Gabapentin (Neurontin -) 100 mg PO TID [facility] Last Admin: 03/21/18 05:36 Dose: 100 mg Heparin Sodium (Porcine) (Heparin -) 5,000 unit SQ TID [facility] Last Admin: 03/21/18 05:37 Dose: 5,000 unit Piperacillin Sod/Tazobactam (Sod 3.375 gm/ Dextrose) 50 mls @ 100 mls/hr IVPB Q8H-IV [facility]; Protocol Last Admin: 03/21/18 01:54 Dose: 100 mls/hr Vancomycin HCl (Vancomycin 1 Gm Premix -) 1 gm in 200 mls @ 133.333 mls/hr IVPB Q24H [facility]; Protocol Last Admin: 03/20/18 11:16 Dose: 133.333 mls/hr Insulin Aspart (Novolog Vial Sliding Scale -) 1 vial SQ ACHS [facility]; Protocol Last Admin: 03/21/18 06:13 Dose: Not Given Oxycodone HCl (Roxicodone -) 5 mg PO Q4H PRN PRN Reason: PAIN LEVEL 1-5 Last Admin: 03/20/18 21:43 Dose: 5 mg Polyethylene Glycol (Miralax (For Daily Use) -) 17 gm PO DAILY [facility] Last Admin: 03/20/18 11:17 Dose: 17 gm Tamsulosin HCl (Flomax -) 0.8 mg PO [facility] Last Admin: 03/20/18 21:05 Dose: 0.8 mg IMAGING: - Left LE DUPLEX: There is no evidence of deep venous thrombosis in the left lower extremity. Wren's cyst in the left popliteal fossa measuring 3.4 x 1.5 cm - Left Foot XRay: Interval moderate soft tissue swelling over dorsal aspect of the foot and mild cortical irregularity at the site of amputation, mid first metatarsal level. Correlation with MRI of the left foot is needed in view of the clinical history to rule out osteomyelitis. - CT LE: As noted on conventional radiography performed 12/24/2017 the patient is status post amputation of the first digit as well as the head and neck of the first metatarsal bone. Calcified periosteal thickening has developed along the medial and lateral aspects of the residual distal portion of the first metatarsal bone. No obvious focal bone erosion is noted. If there is clinical concern for possible osteomyelitis additional evaluation utilizing MRI is suggested. concentric subcutaneous edema is seen along the left foot and ankle and to a lesser extent also involving the contralateral foot/ankle. This subcutaneous edema could be on the basis of cellulitis. Incidental note is made of moderate subtalar arthritic change involving the right ankle. - MRI LE: Marked soft tissue edema of the foot. Amputation of the first digit the level of the mid metatarsal with adjacent fluid and soft tissue edema. Focal increased T2 signal/bone marrow edema of the residual distal aspect of the first metatarsal which could be postoperative or consistent with osteomyelitis. Open wound along the dorsal aspect of the distal phalanx of the second toe. Bone marrow edema of the middle and distal phalanges of the second toe consistent with osteomyelitis. Question of mild bone marrow edema of the distal aspect of the proximal phalanx of the second toe and of the second metatarsal head which may be reactive however osteomyelitis cannot be excluded. Bone marrow edema of the base of the second metatarsal which may be neuropathic however osteomyelitis cannot be excluded. ASSESSMENT/PLAN: Patient is a 57 year old male with past medical history of HTN, DM , BPH and left great toe osteomyelitis s/p amputation (12/2017), presented with painful left second toe s/p Partial second toe amputation (03/17/18) 1. Left Second Digit Ulcer s/p partial second toe amputation POD#4 (03/17/18) - Ulcer was present on the tip of the Left 2nd digit, tender to palpation with mild, malodorous purulent discharge - Surgery was tolerated well without complications at this time - Need to call Pathology thursday final report if proximal margins of amputation are clean - XRay and CT Noted above - MRI LE: Bone marrow edema of the middle and distal phalanges of the second toe consistent with osteomyelitis. - CRP: 2.3 H - ESR: 69 H - Blood Cx negative - Wound cultures noted above - Continue Vancomycin 1000mg (Day 7) - Continue Zosyn (Day 7) - Podiatry (Dr. Ybarra) consulted, appreciate rec's, IV abx, DSD L foot. Can keep dressing C/D/I through the weekend, Partial WB L heel with surgical shoe, F /U OR path, Will follow futher post-op rec's. - ID (Dr. Pike) consulted, appreciate rec's - Pain control via Oxycodone 5 mg PO Q4H PRN 2. JASWINDER vs CKD - Resolved - Acute Interstitial Nephritis during previous admission (12/2017), Likely due to Bactrim and Amoxicillin use, treated with steroids. Pt again took 2 tabs of Bactrim and 2 tabs of Amoxicillin before visiting ED - D/C'ed Normal Saline @ 75 mls/hr IV - Nephrology (Dr. Rudolph) consulted, appreciate rec's, no eosinophils to suggest on going AIN at this time, will hold ARB at this time, check iron studies, Would start CCB/BB for hypertension if needed while off ARB 3. DM - Uncontrolled - hold Home meds - ISS BGM ACHS 4. Hypertension - Controlled - Hold Furosemide, HCTZ and Losartan (nephrotoxic) - Consider Amlodipine if BP elevated 5. FEN - PO Fluid - lytes wnl - diabetic/sodium restricted diet 6. PPx - DVT: Heparin 5000 units sq tid Dispo: Like d/c home tmrw pending pathology report Visit type - Emergency Visit Emergency Visit: Yes ED Registration Date: 03/16/18 Care time: The patient presented to the Emergency Department on the above date and was hospitalized for further evaluation of their emergent condition. - New Patient This patient is new to me today: No - Critical Care Critical Care patient: No
[2018-03-21] MEDS: FERROUS SO4 325 MG TABLET (FP) PO SCH ×2 (11:40→17:20)
[2018-03-21] MEDS: POLYETHYLENE GLYCOL 3350 119 GM BTL PO SCH (11:40)
[2018-03-21] MEDS: VANCOMYCIN 1 GM PREMIX - 1 GM/200 ML BAG IVPB SCH (11:41)
--- NOTE | 2018-03-21 20:31 | PN ---
Progress Note (short form) - Note Progress Note: s/p lilli foot wound peripheral eosinophilia recent ain 2/2 ppi Current Medications Atorvastatin Calcium (Lipitor -) 40 mg PO HS [facility] Last Admin: 03/20/18 21:05 Dose: 40 mg Ferrous Sulfate (Feosol -) 325 mg PO BIDWM [facility] Last Admin: 03/21/18 17:20 Dose: 325 mg Gabapentin (Neurontin -) 100 mg PO TID [facility] Last Admin: 03/21/18 15:19 Dose: 100 mg Heparin Sodium (Porcine) (Heparin -) 5,000 unit SQ TID [facility] Last Admin: 03/21/18 15:19 Dose: 5,000 unit Piperacillin Sod/Tazobactam (Sod 3.375 gm/ Dextrose) 50 mls @ 100 mls/hr IVPB Q8H-IV [facility]; Protocol Last Admin: 03/21/18 17:20 Dose: 100 mls/hr Vancomycin HCl (Vancomycin 1 Gm Premix -) 1 gm in 200 mls @ 133.333 mls/hr IVPB Q24H [facility]; Protocol Last Admin: 03/21/18 11:41 Dose: 133.333 mls/hr Insulin Aspart (Novolog Vial Sliding Scale -) 1 vial SQ ACHS [facility]; Protocol Last Admin: 03/21/18 17:19 Dose: 2 units Oxycodone HCl (Roxicodone -) 5 mg PO Q4H PRN PRN Reason: PAIN LEVEL 1-5 Last Admin: 03/20/18 21:43 Dose: 5 mg Polyethylene Glycol (Miralax (For Daily Use) -) 17 gm PO DAILY [facility] Last Admin: 03/21/18 11:40 Dose: 17 gm Tamsulosin HCl (Flomax -) 0.8 mg PO HS [facility] Last Admin: 03/20/18 21:05 Dose: 0.8 mg Last Vital Signs Temp Pulse Resp BP Pulse Ox 97.5 F L 76 18 152/93 99 03/21/18 18:20 03/21/18 18:20 03/21/18 17:17 03/21/18 17:17 03/20/18 09:00 Lungs clear Heart reg Abd soft IMP- prerenal azotemia Plan continue same rx
[2018-03-21] MEDS: ATORVASTATIN CA 40 MG TABLET (FP) PO SCH (21:13)
[2018-03-21] MEDS: TAMSULOSIN HCL 0.4 MG CAP.ER.24H (FP) PO SCH (21:13)
[2018-03-22] MEDS ORDERED: PIPERACILLIN/TAZOBACTAM 3.375 GM VIAL IVPB ONE (00:58)
[2018-03-22] MEDS ORDERED: DEXTROSE 5%-WATER - 50 ML IVPB ONE (00:58)
[2018-03-22] MEDS: PIPERACILLIN/TAZOB 3.375 GM 3.375 GM in DEXTROSE 5%-WATER - 50 ML IVPB SCH (02:30)
[2018-03-22] MEDS: INSULIN SLIDING SCALE (NOVOLOG) 1 VIAL SQ SCH ×4 (06:14→22:21)
[2018-03-22] MEDS: GABAPENTIN 100 MG CAPSULE (FP) PO SCH ×3 (06:24→22:19)
[2018-03-22] MEDS: HEPARIN NA (PORCINE) 5,000 UNITS/ML 1ML VIAL SQ SCH ×3 (06:25→22:20)
[2018-03-22] MEDS ORDERED: PT OWN MED DRAWER 7, Y5N ONE (09:00)
[2018-03-22] MEDS: POLYETHYLENE GLYCOL 3350 119 GM BTL PO SCH (09:25)
[2018-03-22] MEDS: VANCOMYCIN 1 GM PREMIX - 1 GM/200 ML BAG IVPB SCH (09:25)
[2018-03-22] MEDS: FERROUS SO4 325 MG TABLET (FP) PO SCH ×2 (09:25→16:46)
[2018-03-22] MEDS ORDERED: ARTIFICIAL TEARS (POLYVINYL ALCOHOL) OPTH DROPS OU PRN (12:08)
[2018-03-22] MEDS ORDERED: amLODIPine BESYLATE 5 MG TABLET (FP) PO SCH (12:15)
--- NOTE | 2018-03-22 12:44 | PN ---
Teaching Attending Note Name of Resident: Cole Reyes ATTENDING PHYSICIAN STATEMENT I saw and evaluated the patient. I reviewed the resident's note and discussed the case with the resident. I agree with the resident's findings and plan as documented. SUBJECTIVE:c/o R eye pain. states he noted it was slightly red yesterday and was rubbing it. has foreign body sensation. denies CP, SOB, fever, chills, N/V/C /D, photophobia, pain on movement of the eye OBJECTIVE: Last Vital Signs Temp Pulse Resp BP Pulse Ox 98.6 F 79 18 138/80 99 03/22/18 09:26 03/22/18 09:26 03/22/18 09:26 03/22/18 09:26 03/20/18 09:00 General NAD HEENT R eye inferior medial sclera is injected. no drainage EOMI, PERRL Extremities L foot 1st toe with good skin approximation sutures in place. 2nd digit with skin good approximation. no oozing or bleeding, not tender. ASSESSMENT AND PLAN: 57yo M with PMH DM, HTN, L foot OM s/p 1st digit amputation earlier this year presenting with pain present in the 2nd digit 1. L foot 2nd digit OM-s/p L foot 2nd toe partial amputation 03/17. tolerated surgery well. no complications. awaiting to hear further recs from podiatry and if clean margins were obtained. on vanco/zosyn day 8. will f/u Bone Cx and determine if pt will require rouge mixer abx. ID and podiatry on board. pain control. PT post-op 2. Injected sclera- appears to have ruptured blood vessel. vision intact no photophobia. will clear artificial tears. monitor. consider opthamology if vision becomes affected or worsens 3. JASWINDER- Fena >1 however is also on lasix. resolved. nephrology on board 4. Iron def anemia- Hgb stable. on iron supplements. will need repeat Iron studies in 3 months 5. DM- hold oral agents. bgm, ISS 6. HTN- elevated. will start norvasc. hold ARB due to recent AIN 7. DVT ppx- hep sq 8. possible d/c home tomorrow pending results of bone cx
[2018-03-22 14:41] LABS: ANION GAP 9 MMOL/L (8-16); BLOOD UREA NITROGEN 26 mg/dL (7-18); CHLORIDE 104 mmol/L (98-107); CO2 26 mmol/L (21-32); GLUCOSE,RANDOM 144 mg/dL (74-106); POTASSIUM 4.1 mmol/L (3.5-5.1); SODIUM 139 mmol/L (136-145)
[2018-03-22 14:42] LABS: CREATININE 1.3 mg/dL (0.7-1.3)
--- NOTE | 2018-03-22 14:57 | PN ---
Progress Note (short form) - Note Progress Note: Renal follow up for JASWINDER Pt seen and examined at the bedside no acute complaints denies any sob, cp, abd pain, N/V/D, fever, chills Vital Signs Temperature 97.9 F 03/22/18 14:23 Pulse Rate 75 03/22/18 14:23 Respiratory Rate 22 03/22/18 14:23 Blood Pressure 163/96 03/22/18 14:23 O2 Sat by Pulse Oximetry (%) 99 03/20/18 09:00 Intake & Output 03/19/18 03/20/18 03/21/18 03/22/18 23:59 23:59 23:59 23:59 Intake Total 2600 1200 1710 575 Output Total 1800 900 500 Balance 036 660 4945 575 Weight 77.111 kg RRR CTA soft NT/ND no LE edema no rash CBC, BMP 03/19/18 10:10 03/22/18 13:45 Current Medications Amlodipine Besylate (Norvasc -) 5 mg PO DAILY [facility] Last Admin: 03/22/18 12:31 Dose: 5 mg Artificial Tears (Artificial Tears) 1 drop OU BID PRN PRN Reason: PAIN LEVEL 1 - 3 Atorvastatin Calcium (Lipitor -) 40 mg PO HS [facility] Last Admin: 03/21/18 21:13 Dose: 40 mg Ferrous Sulfate (Feosol -) 325 mg PO BIDWM [facility] Last Admin: 03/22/18 09:25 Dose: 325 mg Gabapentin (Neurontin -) 100 mg PO TID [facility] Last Admin: 03/22/18 06:24 Dose: 100 mg Heparin Sodium (Porcine) (Heparin -) 5,000 unit SQ TID [facility] Last Admin: 03/22/18 06:25 Dose: 5,000 unit Vancomycin HCl (Vancomycin 1 Gm Premix -) 1 gm in 200 mls @ 133.333 mls/hr IVPB Q24H [facility]; Protocol Last Admin: 03/22/18 09:25 Dose: 133.333 mls/hr Insulin Aspart (Novolog Vial Sliding Scale -) 1 vial SQ ACHS [facility]; Protocol Last Admin: 03/22/18 12:31 Dose: 8 units Polyethylene Glycol (Miralax (For Daily Use) -) 17 gm PO DAILY [facility] Last Admin: 03/22/18 09:25 Dose: 17 gm Tamsulosin HCl (Flomax -) 0.8 mg PO HS [facility] Last Admin: 03/21/18 21:13 Dose: 0.8 mg 57 year old gentleman with Hx of Hypertension, DM Type 2, PVD, Osteomylitis of LE, recent JASWINDER secondary to AIN who presents with pain and swelling of his toes and found to have Cr of 1.5 #JASWINDER vs. CKD (Contrast nephropathy vs. volume depletion) #LE Osteomylitis #DM #Hypertension #Anemia Renal function improved and stable remains stable no evidence of AIN at this point can restart ARB as needed for BP will trend renal function as outpatient Thank you Rufino Rudolph DO
--- NOTE | 2018-03-22 15:32 | PN ---
Progress Note (short form) - Note Progress Note: awaiting pathology results Vital Signs Period Temp Pulse Resp BP Sys/Garner Pulse Ox Last 24 Hr 97.5 F-98.6 F 75-79 18-22 138-163/80-96 cor-rrr lungs clear abd soft,nt ext sutures intact second toe, first toe amputation site dry CBC, BMP 03/19/18 10:10 03/22/18 13:45 MRI- noted Microbiology 03/17/18 20:00 Bone Gram Stain - Final 03/17/18 20:00 Bone Tissue Culture - Final Escherichia Coli Proteus Mirabilis Enterococcus Faecalis 03/17/18 20:00 Bone Anaerobic Culture - Final NO ANAEROBES WERE ISOLATED 03/17/18 20:00 Tissue-Other Gram Stain - Final 03/17/18 20:00 Tissue-Other Tissue Culture - Final Staphylococcus Epidermidis 03/17/18 20:00 Tissue-Other Anaerobic Culture - Final NO ANAEROBES WERE ISOLATED 03/15/18 23:10 Blood - Peripheral Venous Blood Culture - Final NO GROWTH AFTER 5 DAYS INCUBATION 03/15/18 23:10 Blood - Peripheral Venous Blood Culture - Final NO GROWTH AFTER 5 DAYS INCUBATION 03/16/18 01:10 Toe - Left Second Gram Stain - Final 03/16/18 01:10 Toe - Left Second Wound Culture - Final Proteus Mirabilis Escherichia Coli Enterococcus Faecalis Staphylococcus Coagulase Neg Streptococcus Viridans 03/15/18 21:30 Urine - Urine Clean Catch Urine Culture - Final NO GROWTH OBTAINED Current Medications Amlodipine Besylate (Norvasc -) 5 mg PO DAILY [facility] Last Admin: 03/22/18 12:31 Dose: 5 mg Artificial Tears (Artificial Tears) 1 drop OU BID PRN PRN Reason: PAIN LEVEL 1 - 3 Atorvastatin Calcium (Lipitor -) 40 mg PO HS [facility] Last Admin: 03/21/18 21:13 Dose: 40 mg Ferrous Sulfate (Feosol -) 325 mg PO BIDWM [facility] Last Admin: 03/22/18 09:25 Dose: 325 mg Gabapentin (Neurontin -) 100 mg PO TID [facility] Last Admin: 03/22/18 06:24 Dose: 100 mg Heparin Sodium (Porcine) (Heparin -) 5,000 unit SQ TID [facility] Last Admin: 03/22/18 06:25 Dose: 5,000 unit Vancomycin HCl (Vancomycin 1 Gm Premix -) 1 gm in 200 mls @ 133.333 mls/hr IVPB Q24H [facility]; Protocol Last Admin: 03/22/18 09:25 Dose: 133.333 mls/hr Insulin Aspart (Novolog Vial Sliding Scale -) 1 vial SQ ACHS [facility]; Protocol Last Admin: 03/22/18 12:31 Dose: 8 units Polyethylene Glycol (Miralax (For Daily Use) -) 17 gm PO DAILY [facility] Last Admin: 03/22/18 09:25 Dose: 17 gm Tamsulosin HCl (Flomax -) 0.8 mg PO HS [facility] Last Admin: 03/21/18 21:13 Dose: 0.8 mg imp/reccd diabetic foot infection r/o osteomyelitis continue vanco/rocephin ckd dm history of AIN
[2018-03-22] MEDS ORDERED: DEXTROSE 5%-WATER 100 ML IVPB ONE (16:29)
[2018-03-22] MEDS: CEFTRIAXONE 2 GM in DEXTROSE 5%-WATER 100 ML IVPB SCH (16:32)
--- NOTE | 2018-03-22 16:48 | PN ---
Physical Exam: SUBJECTIVE: Patient seen and examined at bedside. No complaints. Afebrile. OBJECTIVE: Vital Signs Period Temp Pulse Resp BP Sys/Garner Pulse Ox Last 24 Hr 97.5 F-98.6 F 75-79 18-22 138-163/80-96 Gen: NAD, lying in bed HEENT: NCAT, EOMI Neck: supple, no jvd Cardio: rrr, normal s1s2, no mrg Abd: soft nontender, +BS ext: R first toe s/p amputation. R 2nd toe s/p recent amputation. Dressing CDI. No erythema, swelling, drainage. Laboratory Results - last 24 hr 03/21/18 03/21/18 03/22/18 17:14 21:10 06:09 Sodium Potassium Chloride Carbon Dioxide Anion Gap BUN Creatinine Creat Clearance w eGFR POC Glucometer 185 242 150 Random Glucose Calcium 03/22/18 03/22/18 12:29 13:45 Sodium 139 Potassium 4.1 Chloride 104 Carbon Dioxide 26 Anion Gap 9 BUN 26 H Creatinine 1.3 Creat Clearance w eGFR 57.10 POC Glucometer 327 Random Glucose 144 H Calcium 9.0 Active Medications Generic Name Dose Route Start Last Admin Trade Name Freq PRN Reason Stop Dose Admin Amlodipine Besylate 5 mg 03/22/18 12:15 03/22/18 12:31 Norvasc - PO 5 mg DAILY [facility] Administration Artificial Tears 1 drop 03/22/18 12:08 Artificial Tears OU BID PRN PAIN LEVEL 1 - 3 Atorvastatin Calcium 40 mg 03/17/18 22:00 03/21/18 21:13 Lipitor - PO 40 mg HS [facility] Administration Ferrous Sulfate 325 mg 03/18/18 08:00 03/22/18 09:25 Feosol - PO 325 mg BIDWM [facility] Administration Gabapentin 100 mg 03/17/18 22:00 03/22/18 14:32 Neurontin - PO 100 mg TID [facility] Administration Heparin Sodium (Porcine) 5,000 unit 03/17/18 22:00 03/22/18 16:32 Heparin - SQ 5,000 unit TID [facility] Administration Vancomycin HCl 1 gm in 200 mls @ 133.333 mls/hr 03/18/18 10:00 03/22/18 09:25 Vancomycin 1 Gm Premix - IVPB 133.333 mls/hr Q24H [facility] Administration Protocol Ceftriaxone Sodium 2 gm/ 100 mls @ 200 mls/hr 03/22/18 16:30 03/22/18 16:32 Dextrose IVPB 200 mls/hr DAILY [facility] Administration Protocol Insulin Aspart 1 vial 03/17/18 22:00 03/22/18 12:31 Novolog Vial Sliding Scale - SQ 8 units ACHS [facility] Administration Protocol Polyethylene Glycol 17 gm 03/18/18 10:00 03/22/18 09:25 Miralax (For Daily Use) - PO 17 gm DAILY [facility] Administration Tamsulosin HCl 0.8 mg 03/17/18 22:00 03/21/18 21:13 Flomax - PO 0.8 mg HS [facility] Administration ASSESSMENT/PLAN: Patient is a 57 year old male with past medical history of HTN, DM , BPH and left great toe osteomyelitis s/p amputation (12/2017), presented with painful left second toe s/p Partial second toe amputation (03/17/18) 1. Left Second Digit Ulcer s/p partial second toe amputation POD#4 (03/17/18) - Ulcer was present on the tip of the Left 2nd digit, tender to palpation with mild, malodorous purulent discharge - Surgery was tolerated well without complications at this time - F/u path report - XRay and CT equivocal - MRI LE: Bone marrow edema of the middle and distal phalanges of the second toe consistent with osteomyelitis. - CRP: 2.3 H - ESR: 69 H - Blood Cx negative - Wound cultures polymicrobial - Continue Vancomycin 1000mg (Day 8) - Continue Zosyn (Day 8) - Podiatry (Dr. Ybarra) consulted, appreciate rec's, IV abx, DSD L foot. Can keep dressing C/D/I, Partial WB L heel with surgical shoe, F/U OR path, Will follow futher post-op rec's. - ID (Dr. Pike) consulted, appreciate rec's - Gabapentin 2. JASWINDER vs CKD - Resolved - Acute Interstitial Nephritis during previous admission (12/2017), Likely due to Bactrim and Amoxicillin use, treated with steroids. Pt again took 2 tabs of Bactrim and 2 tabs of Amoxicillin before visiting ED - D/C'ed Normal Saline @ 75 mls/hr IV - Nephrology (Dr. Rudolph) consulted, appreciate rec's, no eosinophils to suggest on going AIN at this time -resume ARB on d/c 3. DM - Uncontrolled - hold Home meds - ISS BGM ACHS 4. Hypertension - Controlled - Hold Furosemide, HCTZ and Losartan (nephrotoxic) - Amlodipine 5. FEN - PO Fluid - lytes wnl - diabetic/sodium restricted diet 6. PPx - DVT: Heparin 5000 units sq tid Dispo: Like d/c home tmrw pending pathology report Visit type - Emergency Visit Emergency Visit: No - New Patient This patient is new to me today: No - Critical Care Critical Care patient: No - Discharge Referral Referred to [facility] Med P.C.: No
--- NOTE | 2018-03-22 18:39 | PATH ---
Surgical Pathology Report Patient Name: EBONIE WILKERSON [facility]. Rec. #: [id number] /Age/Gender: 1960 (Age: 57) / M Account: [id number] Location: [address] [place] [address] MED/[facility] Taken: 03/17/2018 Received: 03/18/2018 Reported: 03/22/2018 Physicians: GENEVIEVE Alejandro M.D. Specimen(s) Received A: SECOND TOE B: PROXIMAL BONE LEFT FOOT 2ND DIGIT Clinical History Diabetic infection of left foot Final Diagnosis A. SECOND TOE, AMPUTATION: AMPUTATED SECOND TOE SHOWING ACUTE AND CHRONIC INFLAMMATION WITH FOCAL ABSCESS FORMATION. BONE WITH ACUTE OSTEOMYELITIS. VIABLE SOFT TISSUE/SKIN MARGIN. BONE MARGIN IS NEGATIVE FOR OSTEOMYELITIS. B. PROXIMAL BONE LEFT FOOT SECOND DIGIT, EXCISION: PORTIONS OF BONE, NEGATIVE FOR OSTEOMYELITIS. Electronically Signed Charlie Feliciano M.D. Gross Description A. RNo eceived in formalin labeled "second toe," is a 3.0 x 2.8 x 2.2 cm toe amputation specimen. The epidermal surface displays a 1.7 x 1.5 cm ulcerated lesion involving the unguis. The lesion possibly involves the underlying bone. Tabulating Clerk sections are submitted in 3 cassettes as follows: 1-lesion with underlying bone, following decalcification; 2-skin and soft tissue margin; 3-bone margin, following decalcification. B. Received in formalin labeled "proximal bone left foot," are 2 portions of bone measuring 0.8 x 0.6 x 0.2 cm and 1.2 x 0.6 x 0.5 cm. The larger portion is bisected and the specimen is entirely submitted in one cassette, following decalcification. DL/03/18/2018 saudi/03/18/2018
[2018-03-22] MEDS: TAMSULOSIN HCL 0.4 MG CAP.ER.24H (FP) PO SCH (22:19)
[2018-03-22] MEDS: ATORVASTATIN CA 40 MG TABLET (FP) PO SCH (22:19)
[2018-03-22] MEDS ORDERED: ACETAMINOPHEN 325 MG TABLET (FP) PO ONE (23:00)
[2018-03-23] MEDS: INSULIN SLIDING SCALE (NOVOLOG) 1 VIAL SQ SCH ×3 (06:46→16:59)
[2018-03-23] MEDS: GABAPENTIN 100 MG CAPSULE (FP) PO SCH ×2 (06:47→14:42)
[2018-03-23] MEDS: HEPARIN NA (PORCINE) 5,000 UNITS/ML 1ML VIAL SQ SCH ×2 (06:47→14:42)
--- NOTE | 2018-03-23 08:18 | PN ---
Teaching Attending Note Name of Resident: Jesenia Butcher ATTENDING PHYSICIAN STATEMENT I saw and evaluated the patient. I reviewed the resident's note and discussed the case with the resident. I agree with the resident's findings and plan as documented with exceptions below. SUBJECTIVE: Patient seen and examined. left foot dressing just done by podiatry, declines removal or further exam. no new pain or concerns. Tolerating diet well, no urinary symptoms. OBJECTIVE: Vital Signs Period Temp Pulse Resp BP Sys/Garner Pulse Ox Last 24 Hr 97.5 F-98.6 F 71-79 18-22 124-163/75-100 99 Intake & Output 03/20/18 03/21/18 03/22/18 03/23/18 23:59 23:59 23:59 23:59 Intake Total 1200 1710 1725 480 Output Total 900 500 Balance 300 1210 1725 480 Weight 170 lb 168 lb 6.4 oz General: sitting in bed in no acute distress Extremities: left foot dressing, visible toes moving freely Chest: CTAB, no rales or wheezing Abdomen: soft, NT, ND Home Medications Medication Instructions Recorded RX: Glimepiride 2 mg PO DAILY #14 tablet 12/28/17 RX: Tamsulosin HCl [Flomax -] 0.8 mg PO HS #60 cap.er.24h 01/08/18 RX: Furosemide [Lasix -] 40 mg PO DAILY 02/26/18 Atorvastatin Ca [Lipitor] 40 mg PO DAILY 03/16/18 Gabapentin [Neurontin -] 100 mg PO TID 03/16/18 Losartan Potassium [Cozaar -] 50 mg PO DAILY 03/16/18 Active Medications Artificial Tears (Artificial Tears) 1 drop OU BID PRN PRN Reason: PAIN LEVEL 1 - 3 Atorvastatin Calcium (Lipitor -) 40 mg PO HS [facility] Last Admin: 03/22/18 22:19 Dose: 40 mg Ferrous Sulfate (Feosol -) 325 mg PO BIDWM [facility] Last Admin: 03/22/18 16:46 Dose: 325 mg Gabapentin (Neurontin -) 100 mg PO TID [facility] Last Admin: 03/23/18 06:47 Dose: 100 mg Heparin Sodium (Porcine) (Heparin -) 5,000 unit SQ TID [facility] Last Admin: 03/23/18 06:47 Dose: 5,000 unit Vancomycin HCl (Vancomycin 1 Gm Premix -) 1 gm in 200 mls @ 133.333 mls/hr IVPB Q24H [facility]; Protocol Last Admin: 03/22/18 09:25 Dose: 133.333 mls/hr Ceftriaxone Sodium 2 gm/ (Dextrose) 100 mls @ 200 mls/hr IVPB DAILY [facility]; Protocol Last Admin: 03/22/18 16:32 Dose: 200 mls/hr Insulin Aspart (Novolog Vial Sliding Scale -) 1 vial SQ ACHS [facility]; Protocol Last Admin: 03/23/18 06:46 Dose: Not Given Losartan Potassium (Cozaar -) 50 mg PO DAILY [facility] Polyethylene Glycol (Miralax (For Daily Use) -) 17 gm PO DAILY [facility] Last Admin: 03/22/18 09:25 Dose: 17 gm Tamsulosin HCl (Flomax -) 0.8 mg PO HS [facility] Last Admin: 03/22/18 22:19 Dose: 0.8 mg Laboratory Results - last 24 hr 03/22/18 03/22/18 03/22/18 12:29 13:45 16:44 WBC RBC Hgb Hct MCV MCH MCHC RDW Plt Count MPV Absolute Neuts (auto) Neutrophils % Lymphocytes % Monocytes % Eosinophils % Basophils % Nucleated RBC % Sodium 139 Potassium 4.1 Chloride 104 Carbon Dioxide 26 Anion Gap 9 BUN 26 H Creatinine 1.3 Creat Clearance w eGFR 57.10 POC Glucometer 327 168 Random Glucose 144 H Calcium 9.0 Phosphorus Magnesium 03/22/18 03/23/18 03/23/18 22:17 06:20 06:20 WBC 6.5 RBC 3.95 L Hgb 10.9 L Hct 32.7 L MCV 82.9 MCH 27.6 MCHC 33.2 RDW 14.2 Plt Count 318 MPV 7.8 Absolute Neuts (auto) 4.0 Neutrophils % 62.3 Lymphocytes % 24.9 D Monocytes % 5.6 Eosinophils % 6.3 H Basophils % 0.9 Nucleated RBC % 0 Sodium 137 Potassium 4.7 Chloride 103 Carbon Dioxide 27 Anion Gap 7 L BUN 28 H Creatinine 1.4 H Creat Clearance w eGFR 52.42 POC Glucometer 229 Random Glucose 147 H Calcium 9.2 Phosphorus 5.4 H Magnesium 2.2 03/23/18 03/23/18 06:46 11:58 WBC RBC Hgb Hct MCV MCH MCHC RDW Plt Count MPV Absolute Neuts (auto) Neutrophils % Lymphocytes % Monocytes % Eosinophils % Basophils % Nucleated RBC % Sodium Potassium Chloride Carbon Dioxide Anion Gap BUN Creatinine Creat Clearance w eGFR POC Glucometer 142 311 Random Glucose Calcium Phosphorus Magnesium Microbiology 03/17/18 20:00 Bone Gram Stain - Final 03/17/18 20:00 Bone Tissue Culture - Final Escherichia Coli Proteus Mirabilis Enterococcus Faecalis 03/17/18 20:00 Bone Anaerobic Culture - Final NO ANAEROBES WERE ISOLATED 03/17/18 20:00 Tissue-Other Gram Stain - Final 03/17/18 20:00 Tissue-Other Tissue Culture - Final Staphylococcus Epidermidis 03/17/18 20:00 Tissue-Other Anaerobic Culture - Final NO ANAEROBES WERE ISOLATED 03/15/18 23:10 Blood - Peripheral Venous Blood Culture - Final NO GROWTH AFTER 5 DAYS INCUBATION 03/15/18 23:10 Blood - Peripheral Venous Blood Culture - Final NO GROWTH AFTER 5 DAYS INCUBATION 03/16/18 01:10 Toe - Left Second Gram Stain - Final 03/16/18 01:10 Toe - Left Second Wound Culture - Final Proteus Mirabilis Escherichia Coli Enterococcus Faecalis Staphylococcus Coagulase Neg Streptococcus Viridans 03/15/18 21:30 Urine - Urine Clean Catch Urine Culture - Final NO GROWTH OBTAINED Surgical pathology, margins neg for ostemyelitis ASSESSMENT AND PLAN: 57yo M with PMH DM, HTN, L foot OM s/p 1st digit amputation 12/2017, admitted with left 2nd toe osteomyelitis s/p partial amputation -left 2nd toe osteomyelitis s/p partial toe amputation 03/17 -JASWINDER, seems to have some baseline CKD stage II, 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 Ceftriaxone/vancomycin day 8, podiatry input noted. DSD done to left foot, wound to be kept clean/dry/intact till next follow up with wound care in 1 week, patient aware of the same. Wound/bone cultures noted. Renal input noted. resume losartan. Hold amlodipine for now. Hold lasix on d/c. Patient advised to ensure adequate hydration and daily weights, with outpatient follow up for resumption of lasix. Heparin DVTPPX Dispo d/c home today pending ID input with outpatient medical clinic and wound care center follow up. Patient stressed need for foot hygeine and good blood sugar control. Plan discussed with patient in detail, all questions answered. Patient relays understanding and in agreement with the same.
[2018-03-23 08:31] LABS: BASO % 0.9 % (0-2.0); EOS % 6.3 % (0-4.5); HEMATOCRIT 32.7 % (35.4-49); HEMOGLOBIN 10.9 GM/dL (11.7-16.9); LYMPH % 24.9 % (8-40); MCH 27.6 pg (25.7-33.7); MCHC 33.2 g/dl (32.0-35.9); MEAN CELL VOLUME 82.9 fl (80-96); MEAN PLT VOLUME 7.8 fl (7.5-11.1); MONO % 5.6 % (3.8-10.2); NEUT % 62.3 % (42.8-82.8); PLATELET COUNT 318 K/MM3 (134-434); RBC 3.95 M/mm3 (4.00-5.60); RDW 14.2 % (11.9-15.9); WHITE BLOOD COUNT 6.5 K/mm3 (4.0-10.0)
[2018-03-23] MEDS: FERROUS SO4 325 MG TABLET (FP) PO SCH ×2 (08:57→17:00)
--- NOTE | 2018-03-23 09:06 | PN ---
Progress Note (short form) - Note Progress Note: Podiatry F/U; Seen/evaluated at bedside NAD. Denies F/V/N/C/SOB/CP. Afebrile VSS. S/p L 2nd digit partial amputation. JESSIE: L foot: pedal pulses palpable, TG wnl. Post-surgical site sutures well coapted , no dehiscence, no purulence, no fluctuance, no periwound erythema, no streaking cellulitis, no signs of active infection. No tenderness to palpation. No ischemic changes. OR Path: proximal bone negative for OM Imp: 57 year old DM M s/p L 2nd digit partial amputation 1. Abx per ID. Proximal bone path negative for OM. 2. DSD L foot. Patient instructed to keep dressing C/D/I. 3. Partial WB L heel with surgical offloading shoe. 4. Podiatry stable for D/C. Will follow up with me in 1 week in wound healing center. [phone]. Elder Ybarra DPM
[2018-03-23 09:19] LABS: ANION GAP 7 MMOL/L (8-16); BLOOD UREA NITROGEN 28 mg/dL (7-18); CALCIUM 9.2 mg/dL (8.5-10.1); CHLORIDE 103 mmol/L (98-107); CO2 27 mmol/L (21-32); GLUCOSE,RANDOM 147 mg/dL (74-106); MAGNESIUM 2.2 mg/dL (1.8-2.4); POTASSIUM 4.7 mmol/L (3.5-5.1); SODIUM 137 mmol/L (136-145)
[2018-03-23 09:21] LABS: CREATININE 1.4 mg/dL (0.7-1.3); PHOSPHOROUS 5.4 mg/dL (2.5-4.9)
[2018-03-23] MEDS ORDERED: PT OWN MED DRAWER 7, Y5N ONE (09:56)
[2018-03-23] MEDS ORDERED: DEXTROSE 5%-WATER 100 ML IVPB ONE (09:57)
[2018-03-23] MEDS ORDERED: LOSARTAN POTASSIUM 50 MG TABLET (FP) PO SCH (10:00)
[2018-03-23] MEDS: VANCOMYCIN 1 GM PREMIX - 1 GM/200 ML BAG IVPB SCH (10:02)
[2018-03-23] MEDS: POLYETHYLENE GLYCOL 3350 119 GM BTL PO SCH (10:02)
[2018-03-23] MEDS: CEFTRIAXONE 2 GM in DEXTROSE 5%-WATER 100 ML IVPB SCH (10:06)
[2018-03-23 14:40] VITALS: BMI 27.9
--- NOTE | 2018-03-23 15:43 | PN ---
Progress Note (short form) - Note Progress Note: Renal follow up for JASWINDER Pt seen and examined at the bedside no acute complaints denies any sob, cp, abd pain, N/V/D, fever, chills possible discharge home today Vital Signs Temperature 97.8 F 03/23/18 14:37 Pulse Rate 78 03/23/18 14:37 Respiratory Rate 22 03/23/18 14:37 Blood Pressure 151/87 03/23/18 14:37 O2 Sat by Pulse Oximetry (%) 99 03/22/18 21:00 Intake & Output 03/20/18 03/21/18 03/22/18 03/23/18 23:59 23:59 23:59 23:59 Intake Total 1200 1710 1725 990 Output Total 900 500 Balance 300 1210 1725 990 Weight 77.111 kg 76.204 kg RRR CTA soft NT/ND no LE edema no rash CBC, BMP 03/23/18 06:20 03/23/18 06:20 Current Medications Artificial Tears (Artificial Tears) 1 drop OU BID PRN PRN Reason: PAIN LEVEL 1 - 3 Atorvastatin Calcium (Lipitor -) 40 mg PO HS [facility] Last Admin: 03/22/18 22:19 Dose: 40 mg Ferrous Sulfate (Feosol -) 325 mg PO BIDWM [facility] Last Admin: 03/23/18 08:57 Dose: 325 mg Gabapentin (Neurontin -) 100 mg PO TID [facility] Last Admin: 03/23/18 14:42 Dose: 100 mg Heparin Sodium (Porcine) (Heparin -) 5,000 unit SQ TID [facility] Last Admin: 03/23/18 14:42 Dose: 5,000 unit Vancomycin HCl (Vancomycin 1 Gm Premix -) 1 gm in 200 mls @ 133.333 mls/hr IVPB Q24H [facility]; Protocol Last Admin: 03/23/18 10:02 Dose: 133.333 mls/hr Ceftriaxone Sodium 2 gm/ (Dextrose) 100 mls @ 200 mls/hr IVPB DAILY [facility]; Protocol Last Admin: 03/23/18 10:06 Dose: 200 mls/hr Insulin Aspart (Novolog Vial Sliding Scale -) 1 vial SQ ACHS [facility]; Protocol Last Admin: 03/23/18 12:01 Dose: 8 units Losartan Potassium (Cozaar -) 50 mg PO DAILY [facility] Last Admin: 03/23/18 10:01 Dose: 50 mg Polyethylene Glycol (Miralax (For Daily Use) -) 17 gm PO DAILY [facility] Last Admin: 03/23/18 10:02 Dose: 17 gm Tamsulosin HCl (Flomax -) 0.8 mg PO HS [facility] Last Admin: 03/22/18 22:19 Dose: 0.8 mg 57 year old gentleman with Hx of Hypertension, DM Type 2, PVD, Osteomylitis of LE, recent JASWINDER secondary to AIN who presents with pain and swelling of his toes and found to have Cr of 1.5 #JASWINDER vs. CKD (Contrast nephropathy vs. volume depletion) #LE Osteomylitis #DM #Hypertension #Anemia Renal function improved and stable remains stable on Losartan 50mg Daily will need outpatient monitoring of renal function office contact information provided to make follow up appointment Thank you Rufino Rudolph DO
--- NOTE | 2018-03-23 16:27 | PN ---
Progress Note (short form) - Note Progress Note: nad no complaints Vital Signs Period Temp Pulse Resp BP Sys/Garner Pulse Ox Last 24 Hr 97.5 F-98.2 F 71-83 20-22 124-157/75-100 99 cor-rrr lungs clear abd soft,nt ext sutures intact second toe, first toe amputation site dry CBC, BMP 03/23/18 06:20 03/23/18 06:20 Microbiology 03/17/18 20:00 Bone Gram Stain - Final 03/17/18 20:00 Bone Tissue Culture - Final Escherichia Coli Proteus Mirabilis Enterococcus Faecalis 03/17/18 20:00 Bone Anaerobic Culture - Final NO ANAEROBES WERE ISOLATED 03/17/18 20:00 Tissue-Other Gram Stain - Final 03/17/18 20:00 Tissue-Other Tissue Culture - Final Staphylococcus Epidermidis 03/17/18 20:00 Tissue-Other Anaerobic Culture - Final NO ANAEROBES WERE ISOLATED 03/15/18 23:10 Blood - Peripheral Venous Blood Culture - Final NO GROWTH AFTER 5 DAYS INCUBATION 03/15/18 23:10 Blood - Peripheral Venous Blood Culture - Final NO GROWTH AFTER 5 DAYS INCUBATION 03/16/18 01:10 Toe - Left Second Gram Stain - Final 03/16/18 01:10 Toe - Left Second Wound Culture - Final Proteus Mirabilis Escherichia Coli Enterococcus Faecalis Staphylococcus Coagulase Neg Streptococcus Viridans 03/15/18 21:30 Urine - Urine Clean Catch Urine Culture - Final NO GROWTH OBTAINED MRI- noted imp/reccd diabetic foot infection clean margins by pathology pod #6 plan keflex 500 tid for one week based on sensitivities of operative cultures ckd dm history of AIN
--- NOTE | 2018-03-23 17:40 | DS ---
Physical Exam: SUBJECTIVE: Patient seen and examined at bedside in the morning. Patient has no active complaints. His right eye pain from yesterday has improved. OBJECTIVE: Vital Signs Period Temp Pulse Resp BP Sys/Garner Pulse Ox Last 24 Hr 97.5 F-98.2 F 71-83 20-22 124-157/75-100 99 PHYSICAL EXAM GENERAL: The patient is awake, alert, and fully oriented, in no acute distress. HEAD: Normal with no signs of trauma. EYES: PERRLA, extraocular movements intact, sclera anicteric, +R inferior medial scleral injection ENT: Ears normal, nares patent, oropharynx clear without exudates, moist mucous membranes. NECK: Trachea midline, full range of motion, supple. LUNGS: Breath sounds equal, clear to auscultation bilaterally. HEART: Regular rate and rhythm, S1, S2 without murmur, rub or gallop. ABDOMEN: Soft, nontender, nondistended, normoactive bowel sounds. EXTREMITIES: 2+ pulses, warm, well-perfused, no edema. L foot: great toe with good skin approximation, sutures in place, 2nd digit with good skin approximation, no purulence, no periwound erythema, no bleeding, no tenderness to palpation, no ischemic changes. NEUROLOGICAL: Cranial nerves II through XII grossly intact. Normal speech, gait not observed. PSYCH: Normal mood, normal affect. SKIN: Warm, dry, normal turgor, no rashes or lesions noted. LABS Laboratory Results - last 24 hr 03/22/18 03/23/18 03/23/18 22:17 06:20 06:20 WBC 6.5 RBC 3.95 L Hgb 10.9 L Hct 32.7 L MCV 82.9 MCH 27.6 MCHC 33.2 RDW 14.2 Plt Count 318 MPV 7.8 Absolute Neuts (auto) 4.0 Neutrophils % 62.3 Lymphocytes % 24.9 D Monocytes % 5.6 Eosinophils % 6.3 H Basophils % 0.9 Nucleated RBC % 0 Sodium 137 Potassium 4.7 Chloride 103 Carbon Dioxide 27 Anion Gap 7 L BUN 28 H Creatinine 1.4 H Creat Clearance w eGFR 52.42 POC Glucometer 229 Random Glucose 147 H Calcium 9.2 Phosphorus 5.4 H Magnesium 2.2 03/23/18 03/23/18 03/23/18 06:46 11:58 16:57 WBC RBC Hgb Hct MCV MCH MCHC RDW Plt Count MPV Absolute Neuts (auto) Neutrophils % Lymphocytes % Monocytes % Eosinophils % Basophils % Nucleated RBC % Sodium Potassium Chloride Carbon Dioxide Anion Gap BUN Creatinine Creat Clearance w eGFR POC Glucometer 142 311 188 Random Glucose Calcium Phosphorus Magnesium Imaging: Left foot x-ray:Interval moderate soft tissue swelling over dorsal aspect of the foot and mild cortical irregularity at the site of amputation, mid first metatarsal level. LE MRI : Marked soft tissue edema of the foot. Amputation of the first digit the level of the mid metatarsal with adjacent fluid and soft tissue edema. Focal increased T2 signal/bone marrow edema of the residual distal aspect of the first metatarsal which could be postoperative or consistent with osteomyelitis. Open wound along the dorsal aspect of the distal phalanx of the second toe. Bone marrow edema of the middle and distal phalanges of the second toe consistent with osteomyelitis. 03/17/18 20:00 Bone Gram Stain - Final 03/17/18 20:00 Bone Tissue Culture - Final Escherichia Coli Proteus Mirabilis Enterococcus Faecalis 03/17/18 20:00 Bone Anaerobic Culture - Final NO ANAEROBES WERE ISOLATED 03/17/18 20:00 Tissue-Other Gram Stain - Final 03/17/18 20:00 Tissue-Other Tissue Culture - Final Staphylococcus Epidermidis 03/17/18 20:00 Tissue-Other Anaerobic Culture - Final NO ANAEROBES WERE ISOLATED 03/15/18 23:10 Blood - Peripheral Venous Blood Culture - Final NO GROWTH AFTER 5 DAYS INCUBATION 03/15/18 23:10 Blood - Peripheral Venous Blood Culture - Final NO GROWTH AFTER 5 DAYS INCUBATION 03/16/18 01:10 Toe - Left Second Gram Stain - Final 03/16/18 01:10 Toe - Left Second Wound Culture - Final Proteus Mirabilis Escherichia Coli Enterococcus Faecalis Staphylococcus Coagulase Neg Streptococcus Viridans 03/15/18 21:30 Urine - Urine Clean Catch Urine Culture - Final NO GROWTH OBTAINED HOSPITAL COURSE: Date of Admission:03/16/18 Date of Discharge: 03/23/18 Patient is a 57 year old male with past medical history of HTN, DM, and Osteomyelitis of left great toe s/p amputation (12/24/2017), present with painful left second toe. Patient noted swelling of left calf and left foot that started 2 days ago. Yesterday, he noted loose nail of the left second toe, was painful and draining malodorous fluid, with swelling and redness around the toe. Patient took Bactrim and Amoxicillin. He denies fever, chills, nausea, vomiting, chest pain, SOB, palpitations, abdominal pain, dysuria. Patient was diagnosed with osteomyelitis of the left second toe. ID and Podiatry were consulted. Patient was started on Vancomycin 1000mg q24h and Zosyn 3.375 q8h. On 2nd HD, patient underwent partial amputation of second toe. Cx showed positive for E. coli, P mirabilis, E. faecalis, Staph coagulase negative and S. viridans. On 7th HD, Zosyn was discontinued and Ceftriaxone 2000mg was started. On 8th HD, OR pathology final report showed negative margins for osteomyelitis. Patient was discharged home with instructions to follow-up with podiatry and to take Keflex 500mg TID for 7 days. On admission, patient was also noted to have JASWINDER on CKD, presenting with initial creatinine of 1.5. AIN vs contrast nephropathy vs. volume depletion were considered. Losartan and Lasix were put on hold and patient was given IV fluids, trend renal function and peripheral eosinophils while on antibiotics. Renal function improved throughout his admission and remained stable with no evidence of AIN. Losartan was restarted and patient instructed to follow-up as outpatient. Minutes to complete discharge: 45 Discharge Summary Reason For Visit: DIABETIC INFECTION OF L FOOT, ACUTE RENAL INSUFF Current Active Problems Acute renal insufficiency (Acute) Amputated toe of left foot (Acute) Diabetic infection of left foot (Acute) Condition: Good - Instructions Diet, Activity, Other Instructions: You were admitted with left foot bone infection and received surgery. You will be discharged on the following antibiotic for 1 week: Keflex 500 mg three times a day. Please keep your foot wound clean, dry and intact Follow up with Dr. Ybarra in 1 week in wound healing center. [phone]. Call on discharge to confirm appointment. Do not remove wound dressing until then. Do not take lasix on discharge. Weigh yourself daily and notify your doctor if weight gain > 3 lbs in 2 days, leg swelling or new concerns noted. Discuss with your doctor at the medical clinic to resume your lasix in 1 week based on your kidney blood test and weight. Continue rest of your medications as before. Your kidney numbers need to be closely monitored by your doctor Medical clinic follow up in 1 week. Recommend blood work BMP (Basic Metabolic Panel) in 1 week with your doctor. You were seen by kidney doctor Dr. Rudolph during your hospital stay, contact information has been provided, please call on discharge to schedule follow up in 1 week. You will need your blood sugars closely monitored with your doctor. Also feet hygiene and regular podiatry follow up is strongly recommended. Referrals: Curt Arechiga MD [Staff Physician] - 1 Week Maxi Ybarra MD [Staff Physician] - 1 Week (in 1 week in wound healing center. [phone].) Rufino Rudolph MD [Staff Physician] - Disposition: HOME - Home Medications Comprehensive Discharge Medication List: Ambulatory Orders Glimepiride 2 mg PO DAILY #14 tablet 12/28/17 Tamsulosin HCl [Flomax -] 0.8 mg PO HS #60 cap.er.24h 01/08/18 Atorvastatin Ca [Lipitor] 40 mg PO DAILY 03/16/18 Gabapentin [Neurontin -] 100 mg PO TID 03/16/18 Losartan Potassium [Cozaar -] 50 mg PO DAILY 03/16/18 Cephalexin Monohydrate [Keflex -] 500 mg PO TID 7 Days #21 capsule 03/23/18 Ferrous Sulfate [Feosol] 325 mg PO BIDWM [facility] 03/23/18 Polyethylene Glycol 3350 [Miralax 119 gm Btl -] 17 gm PO DAILY bottle 03/23/18 This patient is new to me today: Yes Date on this admission: 03/23/18 Emergency Visit: Yes ED Registration Date: 03/16/18 Care time: The patient presented to the Emergency Department on the above date and was hospitalized for further evaluation of their emergent condition. Critical Care patient: No - Discharge Referral Referred to [facility] No
[2018-03-23 18:23] VITALS: BP 160/94; PULSE 84; TEMP 98.1
== END 2018-03-23 18:26 | disposition home or self-care (01) | DRG 314 ==
LOC: JER 18:19 → JERBED 03-16 00:02 → UNDOADMIN 03-16 00:08 → JERBED 03-16 00:08 → J5S 03-16 15:25
PROVIDERS: ADMIT Internal Medicine; ATTEND Hospitalist
PROC: 0Y6S0Z3 Detachment at Left 2nd Toe, Low, Open Approach (ICD-10-PCS; principal; 2018-03-17 19:00)
DX: E11.69 Type 2 diabetes mellitus with other specified complication (principal); E11.621 Type 2 diabetes mellitus with foot ulcer; L03.116 Cellulitis of left lower limb; N17.9 Acute kidney failure, unspecified; N40.0 Benign prostatic hyperplasia without lower urinary tract symptoms; I12.9 Hypertensive chronic kidney disease with stage 1 through stage 4 chronic kidney disease, or unspecified chronic kidney disease; E11.22 Type 2 diabetes mellitus with diabetic chronic kidney disease; E11.51 Type 2 diabetes mellitus with diabetic peripheral angiopathy without gangrene; K59.00 Constipation, unspecified; E11.65 Type 2 diabetes mellitus with hyperglycemia; D50.9 Iron deficiency anemia, unspecified; L97.528 Non-pressure chronic ulcer of other part of left foot with other specified severity; M86.172 Other acute osteomyelitis, left ankle and foot; E11.21 Type 2 diabetes mellitus with diabetic nephropathy; N18.2 Chronic kidney disease, stage 2 (mild); H57.11 Ocular pain, right eye; L08.9 Local infection of the skin and subcutaneous tissue, unspecified; B96.20 Unspecified Escherichia coli [E. coli] as the cause of diseases classified elsewhere; B96.4 Proteus (mirabilis) (morganii) as the cause of diseases classified elsewhere; B95.2 Enterococcus as the cause of diseases classified elsewhere; B95.5 Unspecified streptococcus as the cause of diseases classified elsewhere; Z87.891 Personal history of nicotine dependence; Z89.412 Acquired absence of left great toe
CPT/HCPCS: 36415; 73630-TC-LT; 73700-TC-RT; 73721-LT-TC; 80048; 80053; 81003; 82570; 82728; 82962; 83540; 83550; 83735; 84100; 84156; 84300; 84540; 85025; 85027; 85044; 85610; 85651; 85730; 86140; 87040; 87070; 87075; 87077; 87086; 87186; 87205; 88304-TC; 88305-TC; 88311-TC; 93005; 93010; 93971-TC; 94760; 99285-25; G0480; J1644; J7030

== ENCOUNTER 2018-11-29 20:49 | Inpatient (IN) | payer OTHER ==
--- NOTE | 2018-11-29 22:32 | PDOC ---
History of Present Illness - General Chief Complaint: Edema Stated Complaint: LEFT LEG SWOLLEN Time Seen by Provider: 11/29/18 21:37 History Source: Patient Exam Limitations: No Limitations - History of Present Illness Initial Comments: 11/29/18 22:27 57 yo male pmh HTN, DM, osteomyelitis of left great toe s/p amputation and partial amputation to 2nd toe presents to the ED from PCP (Dr. Arechiga) office for left foot wound and bilateral lower limb swelling. Pt states he had worsening bilateral lower limb pitting edema and SOB with minimal activity over the past 2 months, started on 40 mg Lasix 1 month ago without improvent in swelling but does report improvement in breathing. States appointment today was for reassessment of pitting edema however, Dr. Arechiga noted open wound to the left 2nd toe with pain, pus and maloderous. No redness/streaking, pt able to ambulate. Pt also complains of intermittent non exertional CP and burning on urination today. Denies N/V/F/C, back pain, calf tenderness, recent travel, SOB , abdominal pain, current CP or changes in bowel habits Past History - Past Medical History Allergies/Adverse Reactions: Allergies Allergy/AdvReac Type Severity Reaction Status Date / Time pantoprazole [From Protonix] AdvReac Severe Vomiting Verified 11/29/18 20:54 Home Medications: Ambulatory Orders Glimepiride 2 mg PO DAILY #14 tablet 12/28/17 Tamsulosin HCl [Flomax -] 0.8 mg PO HS #60 cap.er.24h 01/08/18 Atorvastatin Ca [Lipitor] 40 mg PO DAILY 03/16/18 Gabapentin [Neurontin -] 100 mg PO TID 03/16/18 Losartan Potassium [Cozaar -] 50 mg PO DAILY 03/16/18 Ferrous Sulfate [Feosol] 325 mg PO BIDWM ud 03/23/18 Polyethylene Glycol 3350 [Miralax 119 gm Btl -] 17 gm PO DAILY bottle 03/23/18 COPD: No Diabetes: Yes Disorders: Yes (constipation) HTN: Yes Hypercholesterolemia: Yes - Surgical History Cardiac Surgery: Yes (angioplasty) - Suicide/Smoking/Psychosocial Hx Smoking History: Never smoked Have you smoked in the past 12 months: No If you are a former smoker, when did you quit?: 12 years ago Hx Alcohol Use: No Drug/Substance Use Hx: No Substance Use Type: None Hx Substance Use Treatment: No *Physical Exam - Vital Signs Last Vital Signs Temp Pulse Resp BP Pulse Ox 99.1 F 93 H 18 165/85 99 11/29/18 20:51 11/29/18 20:51 11/29/18 20:51 11/29/18 20:51 11/29/18 20:51 ED Treatment Course - LABORATORY CBC & Chemistry Diagram: 11/29/18 23:33 11/29/18 23:33 Medical Decision Making - Medical Decision Making 11/30/18 01:54 Spoke with hospitalist, pt admited for new onset CHF, diabetic foot wound *DC/Admit/Observation/Transfer Diagnosis at time of Disposition: CHF (congestive heart failure), Diabetic foot ulcer - Discharge Dispostion Condition at time of disposition: Stable Decision to Admit order: Yes - Referrals - Patient Instructions - Post Discharge Activity
[2018-11-29] MEDS ORDERED: VANCOMYCIN 1 GM in D5W (PRE-DOCKED) 1,000 MG/250 ML IVPB ONE (22:56)
[2018-11-29] MEDS ORDERED: PIPERACILLIN/TAZOB 4.5 GM 4.5 GM in DEXTROSE 5%-WATER 100 ML IVPB ONE (22:58)
[2018-11-29] MEDS ORDERED: PIPERACILLIN/TAZOB 4.5 GM 4.5 GM/100 ML BAG IVPB ONE (23:31)
[2018-11-29] MEDS ORDERED: VANCOMYCIN 1 GRAM (PRE-DOCKED) 1,000 MG/250 ML BAG IVPB ONE (23:31)
[2018-11-29 23:43] LABS: BASO % 0.8 % (0-2.0); EOS % 7.1 % (0-4.5); HEMATOCRIT 30.9 % (35.4-49); HEMOGLOBIN 10.3 GM/dL (11.7-16.9); LYMPH % 20.4 % (8-40); MCH 27.1 pg (25.7-33.7); MCHC 33.3 g/dl (32.0-35.9); MEAN CELL VOLUME 81.4 fl (80-96); MEAN PLT VOLUME 8.1 fl (7.5-11.1); MONO % 9.3 % (3.8-10.2); NEUT % 62.4 % (42.8-82.8); PLATELET COUNT 275 K/MM3 (134-434); WHITE BLOOD COUNT 7.1 K/mm3 (4.0-10.0)
[2018-11-30] MEDS ORDERED: ONDANSETRON 4 MG/2 ML VIAL IVPUSH ONE (00:06)
--- NOTE | 2018-11-30 00:07 | PDOC ---
Documentation entered by Lev Ray SCRIBE, acting as scribe for Harika Bliss DO. Harika Bliss DO: This documentation has been prepared by the Cory ag Daniel, SCRIBE, under my direction and personally reviewed by me in its entirety. I confirm that the documentation accurately reflects all work , treatment, procedures, and medical decision making performed by me. Attending Attestation - Resident Resident Name: Cr Govea - ED Attending Attestation I have performed the following: I have examined & evaluated the patient, The case was reviewed & discussed with the resident, I agree w/resident's findings & plan - HPI HPI: 11/29/18 22:53 The patient is a 58 year old male with a past medical history of HTN, diabetes, and osteomyelitis of the left big toe s/p amputation of the left big toe and partial amputation of the left 2nd toe here today for evaluation of left 2nd toe wound. The patient has been seeing his PCP Dr. Arechiga for bilateral lower extremity edema and Dr. Arechiga noticed a malodorous, tender would on the left 2nd toe that had pus. Patient also reports mild exertional chest pain and burning with urination. Patient denies headache, lightheadedness. Denies fever, chills. Denies shortness of breath. Denies nausea, vomiting, diarrhea, abdominal pain. Denies travel. Denies calf tenderness. Allergies: pantoprazole PCP: Cutr Arechiga - Physicial Exam PE: 11/29/18 22:55 Agree with resident's physical exam. - Medical Decision Making 11/30/18 00:06 58-year-old chronically ill male with a worsening left foot ulcer Zosyn and vancomycin initiated in the emergency department for both pseudomonal and MRSA coverage Patient to be admitted to medical service for evaluation of possible osteomyelitis due to infected diabetic foot ulcer 11/30/18 00:07
[2018-11-30 00:11] LABS: ALBUMIN 2.6 g/dl (3.4-5.0); ALK PHOS 129 U/L (45-117); ANION GAP 5 MMOL/L (8-16); BILIRUBIN,TOTAL 0.2 mg/dL (0.2-1); BLOOD UREA NITROGEN 41 mg/dL (7-18); CALCIUM 8.1 mg/dL (8.5-10.1); CHLORIDE 106 mmol/L (98-107); CO2 24 mmol/L (21-32); CREATININE 1.7 mg/dL (0.55-1.3); GLUCOSE,RANDOM 212 mg/dL (74-106); POTASSIUM 4.5 mmol/L (3.5-5.1); SGOT/AST 13 U/L (15-37); SGPT/ALT 14 U/L (13-61); SODIUM 135 mmol/L (136-145); TOT PROT 6.3 g/dl (6.4-8.2)
[2018-11-30] MEDS ORDERED: ONDANSETRON 4 MG/2 ML VIAL ONE (00:14)
[2018-11-30] MEDS ORDERED: HEPARIN NA (PORCINE) 5,000 UNITS/ML 1ML VIAL SQ SCH (02:00)
--- NOTE | 2018-11-30 02:06 | HP ---
CHIEF COMPLAINT: PCP: Hawk HISTORY OF PRESENT ILLNESS: 58 year old male with a medical history of hypertension, hyperlipidemia, diabetes, 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 Arechiga for a L second toe ulcer draining what is reported to be purulent drainage and bilateral lower extremity swelling. Patient reports 2 months of bilateral LE pitting edema and worsening dyspnea on exertion. He is reported to have started lasix 1 month ago (40mg daily) which he states has not helped the swelling and has mildly helped the shortness of breath. Patient is noncompliant with his medications as he does not have insurance. Denies chest pain, SOB, nausea, vomiting, diarrhea, fevers, chills. ER course was notable for: (1) JASWINDER Cre 1.7 (2) EKG with new lateral T wave inversions, sinus rhythm (3) BNP > 4000 Recent Travel: denies PAST MEDICAL HISTORY: hypertension, hyperlipidemia, diabetes, s/p L great toe amputation and partial 2nd toe amputation PAST SURGICAL HISTORY: Social History: Smoking:previous smoker, 1PPD x30 years, quit 13 years ago Alcohol:former drinker, quit 13 years ago Drugs: denies illicit drug use Family History: unknown Allergies pantoprazole [From Protonix] Adverse Reaction (Severe, Verified 11/29/18 20:54) Vomiting Acute kidney injury-AIN HOME MEDICATIONS: Home Medications Medication Instructions Recorded Glimepiride 2 mg PO DAILY #14 tablet 12/28/17 Tamsulosin HCl [Flomax -] 0.8 mg PO HS #60 cap.er.24h 01/08/18 Atorvastatin Ca [Lipitor] 40 mg PO DAILY 03/16/18 Gabapentin [Neurontin -] 100 mg PO TID 03/16/18 Losartan Potassium [Cozaar -] 50 mg PO DAILY 03/16/18 Ferrous Sulfate [Feosol] 325 mg PO BIDWM ud 03/23/18 Polyethylene Glycol 3350 [Miralax 17 gm PO DAILY bottle 03/23/18 119 gm Btl -] REVIEW OF SYSTEMS CONSTITUTIONAL: Absent: fever, chills, diaphoresis, generalized weakness, malaise, loss of appetite, weight change HEENT: Absent: rhinorrhea, nasal congestion, throat pain, throat swelling, difficulty swallowing, mouth swelling, ear pain, eye pain, visual changes CARDIOVASCULAR: Absent: chest pain, syncope, palpitations, irregular heart rate, lightheadedness , peripheral edema RESPIRATORY: Absent: cough, shortness of breath, dyspnea with exertion, orthopnea, wheezing, stridor, hemoptysis GASTROINTESTINAL: Absent: abdominal pain, abdominal distension, nausea, vomiting, diarrhea, constipation, melena, hematochezia GENITOURINARY: Absent: dysuria, frequency, urgency, hesitancy, hematuria, flank pain, genital pain MUSCULOSKELETAL: Absent: myalgia, arthralgia, joint swelling, back pain, neck pain SKIN: Absent: rash, itching, pallor HEMATOLOGIC/IMMUNOLOGIC: Absent: easy bleeding, easy bruising, lymphadenopathy, frequent infections ENDOCRINE: Absent: unexplained weight gain, unexplained weight loss, heat intolerance, cold intolerance NEUROLOGIC: Absent: headache, focal weakness or paresthesias, dizziness, unsteady gait, seizure, mental status changes, bladder or bowel incontinence PSYCHIATRIC: Absent: anxiety, depression, suicidal or homicidal ideation, hallucinations. PHYSICAL EXAMINATION Vital Signs - 24 hr 11/29/18 20:51 Temperature 99.1 F Pulse Rate 93 H Respiratory 18 Rate Blood Pressure 165/85 O2 Sat by Pulse 99 Oximetry (%) GENERAL: A&Ox3, no acute distress EYES: PERRLA, EOMI ENT: Moist mucus membranes NECK: No JVD LUNGS: CTA, no wheezes or crackles HEART: RRR, systolic murmur noted on exam ABDOMEN: Soft, nontender, BS present MUSCULOSKELETAL: No CVA Tenderness EXTREMITIES: 2+ pulses, 2+ edema b/l, amputated great toe on L, partially amputated 2nd toe on L, small 1cm draining ulcer noted at base of 2nd L toe NEUROLOGICAL: Cranial nerves II-XII intact. Laboratory Results - last 24 hr 11/29/18 11/29/18 11/29/18 23:26 23:33 23:33 WBC 7.1 RBC 3.80 L Hgb 10.3 L Hct 30.9 L MCV 81.4 MCH 27.1 MCHC 33.3 RDW 13.0 Plt Count 275 MPV 8.1 Absolute Neuts (auto) 4.4 Neutrophils % 62.4 Lymphocytes % 20.4 Monocytes % 9.3 Eosinophils % 7.1 H Basophils % 0.8 Nucleated RBC % 0 Sodium 135 L Potassium 4.5 Chloride 106 Carbon Dioxide 24 Anion Gap 5 L BUN 41 H Creatinine 1.7 H Creat Clearance w eGFR 41.75 Random Glucose 212 H Calcium 8.1 L Total Bilirubin 0.2 AST 13 L ALT 14 Alkaline Phosphatase 129 H Creatine Kinase 127 Troponin I < 0.02 B-Natriuretic Peptide 7057.9 H Total Protein 6.3 L Albumin 2.6 L ASSESSMENT/PLAN: 58 year old male with a medical history of hypertension, hyperlipidemia, diabetes, 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 Arechiga for a L second toe ulcer draining ulcer. Admitted for assessment and treatment of ulcer as well as possible CHF exacerbation #L Toe Ulcer: appears 1cm, draining and malodorous, could be infected; patient has a history of osteomyelitis -wound culture pending -blood cultures pending -Dr. Ybarra consulted -ID consulted -vancomycin/zosyn given in ED, continue with vancomycin/zosyn -XR of foot done, awaiting read -ordered MRI of foot to r/o osteomyelitis -physical therapy #CHF Exacerbation: patient has had 2 months of dyspnea on exertion, b/l lower extremity edema, and an elevated BNP -EKG shows new lateral T wave inversions in leads V4-V6, I and aVL, sinus rhythm w/ LAD and LVH, Qtc 423, no ST segment changes -will get dopplers of lower extremities -daily weights -strict I's/O's -lasix 40 IV daily -held ARB due to JASWINDER -will need to start ARB and B-clarissa prior to D/C -echo ordered, last echo (2018) showed grade I diastolic dysfunction, mild inferior wall hypokinesis, mild-moderate mitral regurg -low sodium diet -cardiology consulted #Acute Kidney Injury on Chronic Kidney Disease: due to uncontrolled DM and hypertension, patient likely has JASWINDER on CKD -will get urine lytes to evaluate -will need to continue to diurese for peripheral edema -no standing fluids -consider renal US and nephrology consultation if worse in AM #Diabetes Mellitus: not controlled, previously only on glipizide -last A1C was 14.2, will recheck A1C now -BGM ACHS -Insulin sliding scale -hold glipizide #Hypertension: BP elevated today -hold losartan due to JASWINDER -will start norvasc 5 -monitor vital signs #Hyperlipidemia: chronic -continue atorvastatin #FEN -no standing fluids -replete lytes in AM as necessary -diabetic/sodium diet #Prophylaxis -heparin 5000 subq TID #Disposition -admit tele Visit type - Emergency Visit Emergency Visit: Yes ED Registration Date: 11/30/18 Care time: The patient presented to the Emergency Department on the above date and was hospitalized for further evaluation of their emergent condition. - New Patient This patient is new to me today: Yes Date on this admission: 11/30/18 - Critical Care Critical Care patient: No
--- NOTE | 2018-11-30 03:03 | PN ---
Teaching Attending Note Name of Resident: Damion Do ATTENDING PHYSICIAN STATEMENT I saw and evaluated the patient. I reviewed the resident's note and discussed the case with the resident. I agree with the resident's findings and plan as documented. SUBJECTIVE: Seen and examined; please refer to resident note for further historical information. Briefly, this is a 58 y/o male presenting to the medicine service with increased DELEON and LE edema as well as foot wound that has been present for some time that has acutely gotten worse; he was sent in by his PCP. He is afebrile and hemodynamically stable. Nothing makes his symptoms better or worse. He has seen Dr. Irene in the past for L 2nd digit partial amputation 2/2 DM foot infection and has been followed in [facility]; previous L foot OM s/p 1st digit amputation 12/2017. Cr 1.4 on last check, 1.7 today which is slightly above his normal but not constituting an JASWINDER. Saw Dr. [facility] for ID in the past. 10 sys ROS done and negative aside from HPI PMH, PSH, FH, SH reviewed Home Medications Medication Instructions Recorded Glipizide 5 mg PO BID 11/30/18 OBJECTIVE: VS, labs, imaging reviewed NAD, AAO, resting comfortably in bed NC AT EOMI PERRLA RRR s1/2 no mgr; mild JVD and LE edema noted sym b/l NT ND +BS Eschar with surrounding mild cellulitic changes; nothing expressed at this juncture Normal mood, appropriate behavior EKG reviewed CXR reviewed Foot XR pending MRI LE pending Echo 02/2018 pending: Grade 1 DD with inferior wall hypokinesis and moderate mitral regurge ASSESSMENT AND PLAN: Patient presents with DM foot wound and sx concerning for CHF; he is afebrile and hemodynamically stable. 1) DM Foot Wound -Checking venous/arterial dopplers, ESR/CRP, wound care consultation -Empiric abx (vanc and zosyn) with ID consultation; MRI foot pending -Consult his communications administrator; pain control 2) CHF excacerbation (Diastolic dysfunction 2018 echo with inferior wma) -Reviewed echo; BNP elevated with sx concerning for CHF; place on sodium and fluid restriction, monitor strict Is and Os and QD weights. Not requiring O2. -Placing on IV lasix 40 QD with first dose now; will check followup BMP given presence of CKD and diurese him as needed -Consider CV consult in the AM -Should CHF be verified on echo consider etiology of CM (NICM vs. ischemic, etc. ). Does have risks for CAD and was transferred for cath 02/2018 but I don't have the report. Will work to obtain cath report. 3) DM2 -Hold PO MARTÍNEZ and place on SSI when inpatient; check a1c 4) Hx HTN -Uncontrolled currently on 1 agent; starting amlodipine 5. Holding JORGE given CKD with diuresis overnight; can resume in AM if Cr stable 5) Hx HLD -Verify and continue statin 6) CKD -Last Cr 1.4; now 1.7. Trend. CKD etiology likely 2/2 uncontrolled HTN/DM. Consider nonurgent renal referral on DC. 7) Hx likely CAD -[place] [facility] [place] inferior wall motion abnormality/ abnormal stress test. I do not have his report; will work to obtain. -Verify and continue home meds; is on ASA, Statin; not documented on being on P2Y12 inhib or BB; would be helpful to review old records and to confirm with pharmacy. Full Code
[2018-11-30] MEDS ORDERED: VANCOMYCIN HCL 1,250 MG in DEXTROSE 5%-WATER - 250 ML IVPB SCH (03:15)
[2018-11-30] MEDS: HEPARIN NA (PORCINE) 5,000 UNITS/ML 1ML VIAL SQ SCH ×3 (06:05→22:20)
[2018-11-30] MEDS ORDERED: VANCOMYCIN 1 GRAM (PRE-DOCKED) 1,000 MG/250 ML BAG IVPB ONE (06:06)
[2018-11-30] MEDS ORDERED: GABAPENTIN 100 MG CAPSULE (FP) ONE (06:06)
[2018-11-30] MEDS: GABAPENTIN 100 MG CAPSULE (FP) PO SCH ×3 (06:25→22:30)
[2018-11-30 06:27] LABS: HEMATOCRIT 31.9 % (35.4-49); HEMOGLOBIN 10.7 GM/dL (11.7-16.9); MCH 27.4 pg (25.7-33.7); MCHC 33.5 g/dl (32.0-35.9); MEAN CELL VOLUME 81.8 fl (80-96); MEAN PLT VOLUME 8.1 fl (7.5-11.1); PLATELET COUNT 279 K/MM3 (134-434); RDW 12.9 % (11.9-15.9); WHITE BLOOD COUNT 8.5 K/mm3 (4.0-10.0)
[2018-11-30 07:07] LABS: ANION GAP 6 MMOL/L (8-16); BLOOD UREA NITROGEN 35 mg/dL (7-18); CHLORIDE 107 mmol/L (98-107); CHOLESTEROL 174 mg/dL (50-200); CO2 22 mmol/L (21-32); CREATININE 1.5 mg/dL (0.55-1.3); GLUCOSE,RANDOM 190 mg/dL (74-106); HDL CHOLESTEROL 47 mg/dL (40-60); POTASSIUM 4.4 mmol/L (3.5-5.1); SODIUM 136 mmol/L (136-145); TRIGLYCERIDES 121 mg/dL (0-150)
[2018-11-30] MEDS: amLODIPine BESYLATE 5 MG TABLET (FP) PO SCH (09:00)
[2018-11-30] MEDS: INSULIN SLIDING SCALE (NOVOLOG) 1 VIAL SQ SCH ×4 (09:00→22:35)
[2018-11-30] MEDS: PIPERACILLIN/TAZOB 2.25 GM 2.25 GM in DEXTROSE 5%-WATER - 50 ML IVPB SCH ×3 (09:00→22:15)
[2018-11-30] MEDS: FUROSEMIDE 40 MG/4 ML INJECTABLE VIAL IVPUSH SCH (09:00)
[2018-11-30] MEDS ORDERED: amLODIPine BESYLATE 5 MG TABLET (FP) ONE (09:27)
[2018-11-30] MEDS ORDERED: FUROSEMIDE 40 MG/4 ML INJECTABLE VIAL ONE (09:28)
[2018-11-30] MEDS ORDERED: PIPERACILLIN/TAZOB 2.25 GM 2.25 GM/50 ML BAG IVPB ONE ×3 (09:28→19:29)
[2018-11-30] MEDS ORDERED: INSULIN (NOVOLOG) ASPART 100 UNITS/ML 10ML VIAL ONE ×3 (09:30→22:32)
[2018-11-30] MEDS ORDERED: LOSARTAN POTASSIUM 50 MG TABLET (FP) PO SCH (10:00)
--- NOTE | 2018-11-30 10:13 | CON.CARD ---
Cardiology Consult (text) - Consultation Consultation Note: Consult Consult Specialty:: Cardiology Referred by:: Medicine Reason for Consultation:: edema - History of Present Illness Chief Complaint: History of Present Illness: 58M h/o DM, HTN, HLD, s/p L great toe amputation and partial 2nd toe amputation p/w toe ulcer and bilateral lower extremity swelling. Edema for the last two months, also has had two months of worsening dyspnea on exertion. He has been taking lasix for about a month, 40 mg daily, helped with dyspnea but still has swelling. Was admitted here 02/2018, had abnormal stress test and was transferred to [place] for cath which showed nonobstructive CAD. - History Source Limitations to Obtaining History: No Limitations - Past Medical History [employer]: Yes: Peripheral Neuropathy Gastrointestinal: Yes: Constipation Renal/: Yes: BPH Endocrine: Yes: Diabetes Mellitus - Alcohol/Substance Use Hx Alcohol Use: No - Smoking History Smoking history: Never smoked Have you smoked in the past 12 months: No If you are a former smoker, when did you quit?: 12 years ago Allergies Allergy/AdvReac Type Severity Reaction Status Date / Time pantoprazole [From Protonix] AdvReac Severe Vomiting Verified 11/29/18 20:54 Home Medications Medication Instructions Recorded Glipizide 5 mg PO BID 11/30/18 Family Disease History - Family Disease History Family History: Unremarkable Review of Systems - Review of Systems Constitutional: reports: No Symptoms Eyes: reports: No Symptoms HENT: reports: No Symptoms Neck: reports: No Symptoms Cardiovascular: reports: Chest Pain Respiratory: reports: No Symptoms Gastrointestinal: reports: No Symptoms Musculoskeletal: reports: No Symptoms Neurological: reports: Dizziness Endocrine: reports: No Symptoms Psychiatric: reports: No Symptoms Vital Signs Period Temp Pulse Resp BP Sys/Garner Pulse Ox Last 24 Hr 98.3 F-99.1 F 80-93 16-18 163-165/85-89 98-99 Constitutional: Yes: Well Nourished, No Distress, Calm Eyes: Yes: Conjunctiva Clear, EOM Intact HENT: Yes: Atraumatic, Normocephalic Neck: Yes: Supple, no JVD Respiratory: Yes: Regular, CTA Bilaterally Gastrointestinal: Yes: Normal Bowel Sounds, Soft Cardiovascular: Yes: Regular Rate and Rhythm Heart Sounds: Yes: S1, S2 Edema: 1+ pitting edema bilaterally Peripheral Pulses: 2+ Left Doralis Pedis, 2+ Right Dorsalis Pedis Neurological: Yes: Alert, Oriented Psychiatric: Yes: Alert, Oriented Laboratory Last Values WBC 8.5 K/mm3 (4.0-10.0) 11/30/18 05:30 RBC 3.90 M/mm3 (4.00-5.60) L 11/30/18 05:30 Hgb 10.7 GM/dL (11.7-16.9) L 11/30/18 05:30 Hct 31.9 % (35.4-49) L 11/30/18 05:30 MCV 81.8 fl (80-96) 11/30/18 05:30 MCH 27.4 pg (25.7-33.7) 11/30/18 05:30 MCHC 33.5 g/dl (32.0-35.9) 11/30/18 05:30 RDW 12.9 % (11.9-15.9) 11/30/18 05:30 Plt Count 279 K/MM3 (134-434) 11/30/18 05:30 MPV 8.1 fl (7.5-11.1) 11/30/18 05:30 Absolute Neuts (auto) 4.4 K/mm3 (1.5-8.0) 11/29/18 23:33 Neutrophils % 62.4 % (42.8-82.8) 11/29/18 23:33 Lymphocytes % 20.4 % (8-40) 11/29/18 23:33 Monocytes % 9.3 % (3.8-10.2) 11/29/18 23:33 Eosinophils % 7.1 % (0-4.5) H 11/29/18 23:33 Basophils % 0.8 % (0-2.0) 11/29/18 23:33 Nucleated RBC % 0 % (0-0) 11/29/18 23:33 ESR 80 mm/hr (0-20) H 11/30/18 05:30 Sodium 136 mmol/L (136-145) 11/30/18 05:30 Potassium 4.4 mmol/L (3.5-5.1) 11/30/18 05:30 Chloride 107 mmol/L (98-107) 11/30/18 05:30 Carbon Dioxide 22 mmol/L (21-32) 11/30/18 05:30 Anion Gap 6 MMOL/L (8-16) L 11/30/18 05:30 BUN 35 mg/dL (7-18) H 11/30/18 05:30 Creatinine 1.5 mg/dL (0.55-1.3) H 11/30/18 05:30 Creat Clearance w eGFR 48.24 (>60) 11/30/18 05:30 POC Glucometer 225 UNITS (80-120) 11/30/18 08:19 Random Glucose 190 mg/dL (74-106) H 11/30/18 05:30 Calcium 8.0 mg/dL (8.5-10.1) L 11/30/18 05:30 Magnesium 2.0 mg/dL (1.8-2.4) 11/30/18 05:30 Total Bilirubin 0.2 mg/dL (0.2-1) 11/29/18 23:33 AST 13 U/L (15-37) L 11/29/18 23:33 ALT 14 U/L (13-61) 11/29/18 23:33 Alkaline Phosphatase 129 U/L (45-117) H 11/29/18 23:33 Creatine Kinase 127 U/L (26-308) 11/29/18 23:33 Troponin I < 0.02 ng/ml (0.00-0.05) 11/29/18 23:33 C-Reactive Protein 1.7 MG/DL (0.00-0.3) H 11/30/18 05:30 B-Natriuretic Peptide 7057.9 pg/ml (5-125) H 11/29/18 23:26 Total Protein 6.3 g/dl (6.4-8.2) L 11/29/18 23:33 Albumin 2.6 g/dl (3.4-5.0) L 11/29/18 23:33 Triglycerides 121 mg/dL (0-150) 11/30/18 05:30 Cholesterol 174 mg/dL (50-200) 11/30/18 05:30 Total LDL Cholesterol 113 mg/dL (5-100) H 11/30/18 05:30 HDL Cholesterol 47 mg/dL (40-60) 11/30/18 05:30 TSH 2.01 uIU/ml (0.358-3.74) D 11/30/18 05:30 Assessment/Plan echo 02/26/18 borderline low LV function, grade I diastolic dysfunction, mild to mod MR, mild TR, RV nl size and function, mild hypokinesis of inf wall Nuclear pharm stress 03/01/18 sm to mod zone of inferior wall reversible defect from base to apex consistent with mild intensity ischemia. nl LV function, ef 52% rest, 58% after stress cath 02/2018 nonobstructive CAD, nl EF EKG: sinus rhythm, LVH with repol CXR: no acute process 58M h/o DM, HTN, HLD, s/p L great toe amputation and partial 2nd toe amputation p/w toe ulcer and bilateral lower extremity swelling Acute on chronic diastolic HF exacerbation - BNP >7000 - echo ordered, history of nl EF prior admission 02/2018 - ARB held for JASWINDER - continue IV lasix. monitor daily weights, Cr, lytes Toe ulcer - manage per podiatry, ID JASWINDER - improving with lasix, monitor Cr with diuresis CAD - nonobstructive on cath 02/2018 - continue statin, aspirin HTN - continue amlodipine HLD - cont statin
--- NOTE | 2018-11-30 11:06 | ECHO ---
Name: EBONIE WILKERSON Exam:Adult Echocardiogram Study Date: 11/30/2018 09:28 AM Age: 58 yrs Reason For Study: perpheral edema Height: 65 in Weight: 207 lb BSA: 2.0 m2 MMode/2D Measurements & Calculations IVSd: 1.5 cm Ao root diam: 2.7 cm LVIDd: 4.8 cm LA dimension: 3.7 cm LVIDs: 4.2 cm LVPWd: 1.4 cm EDV(Teich): 106.5 ml LVOT diam: 2.0 cm ESV(Teich): 79.0 ml Doppler Measurements & Calculations MV E max hubert: 122.0 cm/sec Ao V2 max: 176.5 cm/sec MV A max hubert: 106.2 cm/sec Ao max P.5 mmHg MV E/A: 1.1 AI P1/2t: 1008 msec MV dec time: 0.09 sec LIZ(V,D): 2.1 cm2 AI max hubert: 297.3 cm/sec LV V1 max P.9 mmHg AI max P.3 mmHg LV V1 max: 121.7 cm/sec AI dec slope: 86.4 cm/sec2 MR max hubert: 400.1 cm/sec TR max hubert: 299.3 cm/sec MR max P.8 mmHg TR max P.9 mmHg PA V2 max: 120.8 cm/sec Med Peak E' Hubert: 4.4 cm/sec PA max P.8 mmHg Med E/e': 28.0 Lat Peak E' Hubert: 9.5 cm/sec Lat E/e': 12.9 Procedure A complete two-dimensional transthoracic echocardiogram was performed (2D, M-mode, Doppler and color flow Doppler). Left Ventricle There is moderate concentric left ventricular hypertrophy. The left ventricular ejection fraction is normal. Ejection Fraction = 55%. The transmitral spectral Doppler flow pattern is suggestive of impaired LV relaxation. The left ventricular wall motion is normal. Right Ventricle The right ventricle is normal in size and function. Atria Normal left and right atrial size and function. Mitral Valve The mitral valve is normal in structure and function. There is trace mitral regurgitation. Tricuspid Valve The tricuspid valve is normal in structure and function. There is Trace to mild tricuspid regurgitati on. Right ventricular systolic pressure is elevated at 30-40mmHg. There is mild pulmonary hypertension. Aortic Valve The aortic valve is normal in structure and function. Trace aortic regurgitation. Pulmonic Valve The pulmonic valve is normal in structure and function. Great Vessels The aortic root is normal size. Pericardium/Pleura There is no pericardial effusion. There is no pleural effusion. Interpretation Summary There is moderate concentric left ventricular hypertrophy. The left ventricular ejection fraction is normal. Ejection Fraction = 55%. The right ventricle is normal in size and function. There is trace mitral regurgitation. There is Trace to mild tricuspid regurgitation. Right ventricular systolic pressure is elevated at 30-40mmHg. There is mild pulmonary hypertension. Trace aortic regurgitation. MD German Gaviria 11/30/2018 11:06 AM
--- NOTE | 2018-11-30 11:37 | EKG ---
Test Reason : Blood Pressure : / mmHG Vent. Rate : 084 BPM Atrial Rate : 084 BPM P-R Int : 190 ms QRS Dur : 100 ms QT Int : 358 ms P-R-T Axes : 028 -30 136 degrees QTc Int : 423 ms NORMAL SINUS RHYTHM LEFT AXIS DEVIATION VOLTAGE CRITERIA FOR LEFT VENTRICULAR HYPERTROPHY T WAVE ABNORMALITY, CONSIDER LATERAL ISCHEMIA ABNORMAL ECG Confirmed by German Gaviria MD ([id number]) on 11/30/2018 11:37:34 AM Referred By: Confirmed By:German Gaviria MD
--- NOTE | 2018-11-30 12:49 | PN ---
Physical Exam: SUBJECTIVE: Patient seen and examined this AM. He states he has occasional pain in his foot, however he is having chest pain during encounter. OBJECTIVE: Vital Signs Period Temp Pulse Resp BP Sys/Garnre Pulse Ox Last 24 Hr 98.3 F-99.1 F 80-93 16-18 163-165/85-89 98-99 GEN: alert and oriented, no acute distress HEENT: Moist mucus membranes, PERRL HEART: Regular rate and rhythm, no murmurs noted LUNGS: CTA b/l, no wheezes noted ABDOMEN: Soft, nontender, normoactive bowel sounds NEURO: No significant neurological deficits noted, 5/5 strength and good sensation throughout EXTREMITIES: 1+ peripheral edema, Left great toe amputation healed well. left 2nd toe partial amputation. 1cm diameter ulceration with mild erythema, scant serosanguinous drainage. no crepitus noted Laboratory Results - last 24 hr 11/29/18 11/29/18 11/29/18 23:26 23:33 23:33 WBC 7.1 RBC 3.80 L Hgb 10.3 L Hct 30.9 L MCV 81.4 MCH 27.1 MCHC 33.3 RDW 13.0 Plt Count 275 MPV 8.1 Absolute Neuts (auto) 4.4 Neutrophils % 62.4 Lymphocytes % 20.4 Monocytes % 9.3 Eosinophils % 7.1 H Basophils % 0.8 Nucleated RBC % 0 ESR Sodium 135 L Potassium 4.5 Chloride 106 Carbon Dioxide 24 Anion Gap 5 L BUN 41 H Creatinine 1.7 H Creat Clearance w eGFR 41.75 POC Glucometer Random Glucose 212 H Hemoglobin A1c % Calcium 8.1 L Magnesium Total Bilirubin 0.2 AST 13 L ALT 14 Alkaline Phosphatase 129 H Creatine Kinase 127 Troponin I < 0.02 C-Reactive Protein B-Natriuretic Peptide 7057.9 H Total Protein 6.3 L Albumin 2.6 L Triglycerides Cholesterol Total LDL Cholesterol HDL Cholesterol TSH 11/30/18 11/30/18 11/30/18 05:30 05:30 05:30 WBC 8.5 RBC 3.90 L Hgb 10.7 L Hct 31.9 L MCV 81.8 MCH 27.4 MCHC 33.5 RDW 12.9 Plt Count 279 MPV 8.1 Absolute Neuts (auto) Neutrophils % Lymphocytes % Monocytes % Eosinophils % Basophils % Nucleated RBC % ESR Sodium 136 Potassium 4.4 Chloride 107 Carbon Dioxide 22 Anion Gap 6 L BUN 35 H Creatinine 1.5 H Creat Clearance w eGFR 48.24 POC Glucometer Random Glucose 190 H Hemoglobin A1c % 9.5 H Calcium 8.0 L Magnesium 2.0 Total Bilirubin AST ALT Alkaline Phosphatase Creatine Kinase Troponin I C-Reactive Protein B-Natriuretic Peptide Total Protein Albumin Triglycerides 121 Cholesterol 174 Total LDL Cholesterol 113 H HDL Cholesterol 47 TSH 2.01 D 11/30/18 11/30/18 11/30/18 05:30 05:30 08:19 WBC RBC Hgb Hct MCV MCH MCHC RDW Plt Count MPV Absolute Neuts (auto) Neutrophils % Lymphocytes % Monocytes % Eosinophils % Basophils % Nucleated RBC % ESR 80 H Sodium Potassium Chloride Carbon Dioxide Anion Gap BUN Creatinine Creat Clearance w eGFR POC Glucometer 225 Random Glucose Hemoglobin A1c % Calcium Magnesium Total Bilirubin AST ALT Alkaline Phosphatase Creatine Kinase Troponin I C-Reactive Protein 1.7 H B-Natriuretic Peptide Total Protein Albumin Triglycerides Cholesterol Total LDL Cholesterol HDL Cholesterol TSH Active Medications Generic Name Dose Route Start Last Admin Trade Name Freq PRN Reason Stop Dose Admin Amlodipine Besylate 5 mg 11/30/18 10:00 11/30/18 09:00 Norvasc - PO 5 mg DAILY CELESTINO Administration Atorvastatin Calcium 40 mg 11/30/18 22:00 Lipitor - PO HS CELESTINO Furosemide 40 mg 11/30/18 10:00 11/30/18 09:00 Lasix Injection - IVPUSH 40 mg DAILY CELESTINO Administration Gabapentin 100 mg 11/30/18 06:00 11/30/18 06:25 Neurontin - PO 100 mg TID CELESTINO Administration Heparin Sodium (Porcine) 5,000 unit 11/30/18 02:09 11/30/18 06:05 Heparin - SQ 5,000 unit TID CELESTINO Administration Vancomycin HCl 1,250 mg/ 250 mls @ 250 mls/2 hr 11/30/18 03:15 Dextrose IVPB Q24H CELESTINO Protocol Piperacillin Sod/Tazobactam 50 mls @ 100 mls/hr 11/30/18 09:00 Sod 2.25 gm/ Dextrose IVPB Q6H-IV CELESTINO Protocol Piperacillin Sod/Tazobactam 50 mls @ 100 mls/hr 11/30/18 09:00 11/30/18 09:00 Sod 2.25 gm/ Dextrose IVPB 12/01/18 03:29 100 mls/hr Q6H-IV CELESTINO Administration Protocol Insulin Aspart 1 vial 11/30/18 07:00 11/30/18 09:00 Novolog Vial Sliding Scale - SQ 4 units ACHS CELESTINO Administration Protocol Tamsulosin HCl 0.8 mg 11/30/18 22:00 Flomax - PO HS CELESTINO ASSESSMENT/PLAN: 58 year old male with a medical history of hypertension, hyperlipidemia, diabetes, 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 Arechiga for a L second toe ulcer draining ulcer. Admitted for assessment and treatment of ulcer as well as possible CHF exacerbation Chest pain -Acute chest pain this morning during rounds -Repeat EKG similar compared to EKG from yesterday -Troponin negative -discussed with cardiology -Recent cath noted from [place] without any concerning occlusion Foot ulcer -Prior cultures noted, sensitive -Vanc/Zosyn for now, cultures pending -ID consulted -Podiatry consulted -Will await further podiatry and ID recs JASWINDER -Increased Cr from past admission -unsure exact etiology, possibly heart failure exacerbation causing prerenal azotemia -hold fluids due to acute volume overloaded appearance -hold julio -renal US pending -UA and lytes pending NIDDM -Hold glipizide -BGMs ACHS -Insulin sliding scale Acute on chronic diastolic CHF -Repeat echo pending -Cardiology consult appreciated -Resume home lasix, though patient has not been taking at home as he ran out HTN -mildly elevated -Hold losartan with renal function -Norvasc 5 mg PO daily for now HLD -cont lipitor 40 mg PO HS FEN -none -monitor and replete -Diabetic/Na controlled diet DVT Prophylaxis -Hep 5000 units SQ TID Disposition Med/Surg, pt without insurance so home medication compliance is complicated Visit type - Emergency Visit Emergency Visit: Yes ED Registration Date: 11/30/18 Care time: The patient presented to the Emergency Department on the above date and was hospitalized for further evaluation of their emergent condition. - New Patient This patient is new to me today: Yes Date on this admission: 11/30/18 - Critical Care Critical Care patient: No
[2018-11-30 13:46] LABS: EPI CELLS 0.4 /HPF (0-5/HPF); PH,URINE 6.5 (5.0-8.0); URINE APPEARANCE CLEAR; URINE BILIRUBIN NEGATIVE (NEGATIVE); URINE CASTS 0 /lpf (0-8); URINE COLOR YELLOW; URINE GLUCOSE (UA) 1+ (NEGATIVE); URINE KETONE NEGATIVE (NEGATIVE); URINE LEUK ESTERASE NEGATIVE (NEGATIVE); URINE NITRITE NEGATIVE (NEGATIVE); URINE PROTEIN 2+ (NEGATIVE); URINE RBC 2 /hpf (0-4); URINE UROBILINOGEN 0.2 mg/dL (0.2-1.0); URINE WBC 1 /hpf (0-5)
--- NOTE | 2018-11-30 13:46 | EKG ---
Test Reason : Blood Pressure : / mmHG Vent. Rate : 078 BPM Atrial Rate : 078 BPM P-R Int : 196 ms QRS Dur : 096 ms QT Int : 366 ms P-R-T Axes : 018 -32 143 degrees QTc Int : 417 ms NORMAL SINUS RHYTHM LEFT AXIS DEVIATION VOLTAGE CRITERIA FOR LEFT VENTRICULAR HYPERTROPHY T WAVE ABNORMALITY, CONSIDER LATERAL ISCHEMIA ABNORMAL ECG WHEN COMPARED WITH ECG OF 29-NOV-2018 23:21, NO SIGNIFICANT CHANGE WAS FOUND Confirmed by German Gaviria MD ([id number]) on 11/30/2018 1:46:22 PM Referred By: GAMAL RASHID Confirmed By:German Gaviria MD
--- NOTE | 2018-11-30 14:01 | PN ---
Teaching Attending Note Name of Resident: Cole Reyes ATTENDING PHYSICIAN STATEMENT I saw and evaluated the patient. I reviewed the resident's note and discussed the case with the resident. I agree with the resident's findings and plan as documented. SUBJECTIVE: seen around 10:30. reported Cp at that time that started 5 min earlier. had no fever or chills. No pain anywhere else. he denies SOB. CP is in L side, does nto radiate to neck ot LUE. denies SOB , but reports SOB with exertion and walking in past 2 months. OBJECTIVE: NAD. CV: RRR, no 2/6 SM at LUSB , LLSB and apex. no radiation . mild JVD Lungs: CTAB Abd: soft, NT, Nd , NL BS Ext: 2+ pitting edema on LE. No erythema. R foot with signs of fungal infection in toes' webs. L foot with s/p 1st toe amputation , partial 2nd toe amputation . ulcer on plantar surface just below the 2nd toe stump. with surrounding pale, whitish skin, no erythema, no discharge was expressed. minimal tenderness. no crepitus . DP 2+ b/l. 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 CKD, AIN in previous admisison, HLP, Recent cath in 03/13 with non obstructive disease who presented with L foot ulcer with drainage. 1- CP: initial EKG reviewed ( sinus, new TWI in lateral leads compared to EKG form 03/13. also J point elevation in V2). EKG repeated during CP: same changes are still stable . trop normal . Spoke to Dr. Duncan, no concern about this cp as he has a clean cath in 03/13. - palak follow another trop 2- L foot ulcer: No crepitus on foot exam. ray reviewed, small amout of gas seen is likely due to the ulcer itself. previous bone cx and soft tissue culture reviewed( proteus, E coli, E. fecalis, Staph epi,) - received Vanco and zosyn in ER - Id consult for Abx - wound cx pending - no signs of sepsis , blood cx pending - d/w dr. Ybarra , notified about xray read. He will see patient shortly - MRI ordered 3- DM : takes glipizide at home. hold and give SSI - A1c 9.1 %. 4- JASWINDER : had AIN in a previous admisison. Not sure of cr base line. ? CKD etiology could be due to prerenal azotemia form heart failure - DC IVF - renal US 5- Acute diastolic CHF exacerbation ; - echo form 03/13 reviewed. - cont IV lasix - weight and I&O 6- HTN: hold ARB due to renal failure. - cont norvasc in mean time . can change to losartan when renal failure improved DVT Px Dispo : has no insurance, can't afford meds he was discharged on . he takes only 3 meds at home.
--- NOTE | 2018-11-30 15:39 | PN ---
Progress Note (short form) - Note Progress Note: ID consult dictated imp/reccd 58 o man with poorl controlled diabetes (hgbaic 9.5) s/p amputation of the left big toe and patial amputaion of the left second toe in 2018 now admitted with infected diabetic foot ulcer r/o osteo podiatry to see elevated esr also with CKD adjust antibiotics for CKD continue zosyn check vancomycin level (random) in am
--- NOTE | 2018-11-30 16:19 | CONS ---
DATE OF CONSULTATION: 11/30/2018 INFECTIOUS DISEASE CONSULTATION This is a 58-year-old man with a past medical history of diabetes, status post amputation of the 1st toe of his left foot December 24, 2017 and status post partial amputation of the 2nd toe of the left foot in March 15, 2018. He now returns after the prior ulcers had healed after he was noted by his PMD to have a foul smelling plantar ulcer on the same foot. He denies any fevers or chills. He does have bilateral lower extremity edema which he states has been persistent. He has no nausea, vomiting, diarrhea or dysuria. PAST MEDICAL HISTORY: Notable for a history of diabetes, hypertension, hyperlipidemia, BPH, and AIN secondary to pantoprazole. He has a history of cardiac catheterization recently. MEDICATIONS: His medications at home include losartan, glimepiride, furosemide, enalapril, and aspirin. SOCIAL HISTORY: He is originally from [place]; he has been in this country 20 plus years. He stopped smoking 13 years ago. He does not drink any alcohol; he also stopped 13 years ago. 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 There is no illicit drug use. FAMILY HISTORY: Noncontributory. REVIEW OF SYSTEMS: He denies fevers or chills, nausea or vomiting. He has had this chronic leg edema and he has noted this ulcer. It is unclear how long he has had it on the sole of his foot. PHYSICAL EXAMINATION: General: He is a pleasant man in no acute distress. Vital Signs: Temperature is 98.3, pulse is 93, blood pressure is 165/85, respiratory rate is 16, and he is saturating 98% on room air. HEENT: Normocephalic. His eyes are anicteric. Neck: Supple. Lungs: Clear to auscultation. Heart: Regular rate and rhythm. Abdomen: Soft, nontender. Extremities: Are notable for good pulses in the left foot 2+. He has got a well-healed amputation site at the 1st toe and the 2nd toe which is a partial amputation and he has a plantar ulcer that has no purulence at this time but has a sort of whitened area surrounding it. X-ray of the foot is notable for amputation of the 1st toe and a partial amputation of the 2nd, soft tissue swelling, and soft tissue . Duplex of the leg shows no evidence of DVT and a left Wren cyst. LABS: Are notable for a white count of 8.5, hemoglobin 10.7. Sedimentation rate is 80. BUN and creatinine was 35 and 1.5. Hemoglobin A1c is 9.5. CRP is 1.7. SUMMARY: In summary this is a 58-year-old man with poorly controlled diabetes admitted with a diabetic foot ulcer. He is scheduled for MRI as well as a podiatry evaluation. I suspect the is secondary to the ulcer. There is no palpable crepitance of the foot. We will treat. Continue the vancomycin and Zosyn that have been ordered with adjustments for his renal insufficiency pending further cultures. ROMINA RODRIGUEZ M.D. YULIYA/[id number]
--- NOTE | 2018-11-30 16:47 | CONSULT ---
Consult - text type - Consultation Consultation Note: Podiatry Consultation: 58 year old diabetic, well known to me from prior admissions, presents with bilateral pedal and lower leg swelling, as well as left foot ulcer. Denies F/V/N /C/SOB/CP. Afebrile. Patient sent by primary doctor for worsening ulcer with drainage. PMHx: DM, HTN, HLP Meds: noted ALL: pantoprazole JESSIE: L foot: pedal pulses palpable 2/4, TG wnl. There is a plantar 2nd interspace sulcus diabetic ulcer with mixed fibrogranular base, hyperkeratotic and macerated edges, probes about 1 cm, no bone palpated, no deep purulent drainage , no streaking cellulitis, no soft tissue crepitus, no signs of acute infection. Minimal tenderness to palpation. L foot XR: gas read on xray MRI: pending ESR: 80 Imp: 58 year old diabetic male with left foot diabetic ulcer 1. IV abx per ID 2. Rx bactroban daily to L foot 3. MRI pending 4. Reviewed xray and no evidence of subcutaneous emphysema, just air secondary to ulcer 5. Will follow. Thank you for the courtesy of this consultation. Elder Ybarra DPM
[2018-11-30] MEDS ORDERED: TAMSULOSIN HCL 0.4 MG CAP PO SCH (22:00)
[2018-11-30] MEDS ORDERED: ATORVASTATIN CA 40 MG TABLET (FP) ONE (22:11)
[2018-11-30] MEDS: ATORVASTATIN CA 40 MG TABLET (FP) PO SCH (22:30)
[2018-12-01] MEDS ORDERED: PIPERACILLIN/TAZOBACTAM 2.25 GM VIAL IVPB ONE ×4 (01:51→20:01)
[2018-12-01] MEDS ORDERED: DEXTROSE 5%-WATER - 50 ML IVPB ONE ×4 (01:51→20:01)
[2018-12-01] MEDS: PIPERACILLIN/TAZOB 2.25 GM 2.25 GM in DEXTROSE 5%-WATER - 50 ML IVPB SCH ×4 (02:04→20:06)
[2018-12-01 05:55] LABS: BASO % 0.7 % (0-2.0); EOS % 8.8 % (0-4.5); HEMATOCRIT 34.5 % (35.4-49); HEMOGLOBIN 11.5 GM/dL (11.7-16.9); LYMPH % 20.4 % (8-40); MCH 27.2 pg (25.7-33.7); MCHC 33.3 g/dl (32.0-35.9); MEAN CELL VOLUME 81.6 fl (80-96); MEAN PLT VOLUME 8.1 fl (7.5-11.1); MONO % 5.9 % (3.8-10.2); NEUT % 64.2 % (42.8-82.8); PLATELET COUNT 336 K/MM3 (134-434); RBC 4.23 M/mm3 (4.00-5.60); RDW 13.1 % (11.9-15.9); WHITE BLOOD COUNT 6.6 K/mm3 (4.0-10.0)
[2018-12-01 06:22] LABS: ANION GAP 6 MMOL/L (8-16); BLOOD UREA NITROGEN 32 mg/dL (7-18); CALCIUM 8.6 mg/dL (8.5-10.1); CHLORIDE 106 mmol/L (98-107); CO2 27 mmol/L (21-32); GLUCOSE,RANDOM 153 mg/dL (74-106); MAGNESIUM 2.1 mg/dL (1.8-2.4); PHOSPHOROUS 4.9 mg/dL (2.5-4.9); POTASSIUM 4.6 mmol/L (3.5-5.1); SODIUM 139 mmol/L (136-145)
[2018-12-01] MEDS: INSULIN SLIDING SCALE (NOVOLOG) 1 VIAL SQ SCH ×4 (06:29→21:07)
[2018-12-01] MEDS: GABAPENTIN 100 MG CAPSULE (FP) PO SCH ×3 (06:29→21:07)
[2018-12-01] MEDS: HEPARIN NA (PORCINE) 5,000 UNITS/ML 1ML VIAL SQ SCH ×3 (06:29→21:07)
--- NOTE | 2018-12-01 07:13 | PN ---
Physical Exam: SUBJECTIVE: Patient seen and examined this AM. States he is doing well with no further chest pain. He does endorse similar pain in the foot that comes and goes. OBJECTIVE: Vital Signs Period Temp Pulse Resp BP Sys/Garner Pulse Ox Last 24 Hr 98.1 F-98.7 F 77-86 16-20 151-174/79-93 96-99 GEN: alert and oriented, no acute distress HEENT: Moist mucus membranes, PERRL HEART: Regular rate and rhythm, no murmurs noted LUNGS: CTA b/l, no wheezes noted ABDOMEN: Soft, nontender, normoactive bowel sounds EXTREMITIES: 1+ peripheral edema, Left great toe amputation healed well. left 2nd toe partial amputation. 1cm diameter ulceration with mild erythema, scant serosanguinous drainage. no crepitus noted, drainage noted on dressing, slightly macerated Laboratory Results - last 24 hr 11/30/18 11/30/18 11/30/18 05:30 05:30 05:30 WBC RBC Hgb Hct MCV MCH MCHC RDW Plt Count MPV Absolute Neuts (auto) Neutrophils % Lymphocytes % Monocytes % Eosinophils % Basophils % Nucleated RBC % ESR 80 H Sodium Potassium Chloride Carbon Dioxide Anion Gap BUN Creatinine POC Glucometer Random Glucose Hemoglobin A1c % 9.5 H Calcium Phosphorus Magnesium Troponin I C-Reactive Protein 1.7 H Urine Color Urine Appearance Urine pH Ur Specific Bell Urine Protein Urine Glucose (UA) Urine Ketones Urine Blood Urine Nitrite Urine Bilirubin Urine Urobilinogen Ur Leukocyte Esterase Urine WBC (Auto) Urine RBC (Auto) Urine Casts (Auto) U Epithel Cells (Auto) Urine Bacteria (Auto) Ur Random Sodium Ur Random Urea Nitrogn Random Vancomycin 11/30/18 11/30/18 11/30/18 08:19 12:00 13:13 WBC RBC Hgb Hct MCV MCH MCHC RDW Plt Count MPV Absolute Neuts (auto) Neutrophils % Lymphocytes % Monocytes % Eosinophils % Basophils % Nucleated RBC % ESR Sodium Potassium Chloride Carbon Dioxide Anion Gap BUN Creatinine POC Glucometer 225 108 Random Glucose Hemoglobin A1c % Calcium Phosphorus Magnesium Troponin I < 0.02 C-Reactive Protein Urine Color Urine Appearance Urine pH Ur Specific Bell Urine Protein Urine Glucose (UA) Urine Ketones Urine Blood Urine Nitrite Urine Bilirubin Urine Urobilinogen Ur Leukocyte Esterase Urine WBC (Auto) Urine RBC (Auto) Urine Casts (Auto) U Epithel Cells (Auto) Urine Bacteria (Auto) Ur Random Sodium Ur Random Urea Nitrogn Random Vancomycin 11/30/18 11/30/18 11/30/18 13:20 17:32 22:29 WBC RBC Hgb Hct MCV MCH MCHC RDW Plt Count MPV Absolute Neuts (auto) Neutrophils % Lymphocytes % Monocytes % Eosinophils % Basophils % Nucleated RBC % ESR Sodium Potassium Chloride Carbon Dioxide Anion Gap BUN Creatinine POC Glucometer 208 194 Random Glucose Hemoglobin A1c % Calcium Phosphorus Magnesium Troponin I C-Reactive Protein Urine Color Yellow Urine Appearance Clear Urine pH 6.5 D Ur Specific Bell 1.008 L Urine Protein 2+ H Urine Glucose (UA) 1+ H Urine Ketones Negative Urine Blood Trace Urine Nitrite Negative Urine Bilirubin Negative Urine Urobilinogen 0.2 Ur Leukocyte Esterase Negative Urine WBC (Auto) 1 Urine RBC (Auto) 2 Urine Casts (Auto) 0 U Epithel Cells (Auto) 0.4 Urine Bacteria (Auto) 2.0 Ur Random Sodium Ur Random Urea Nitrogn Random Vancomycin 11/30/18 11/30/18 12/01/18 22:30 22:30 05:26 WBC RBC Hgb Hct MCV MCH MCHC RDW Plt Count MPV Absolute Neuts (auto) Neutrophils % Lymphocytes % Monocytes % Eosinophils % Basophils % Nucleated RBC % ESR Sodium Potassium Chloride Carbon Dioxide Anion Gap BUN Creatinine POC Glucometer 156 Random Glucose Hemoglobin A1c % Calcium Phosphorus Magnesium Troponin I C-Reactive Protein Urine Color Urine Appearance Urine pH Ur Specific Bell Urine Protein Urine Glucose (UA) Urine Ketones Urine Blood Urine Nitrite Urine Bilirubin Urine Urobilinogen Ur Leukocyte Esterase Urine WBC (Auto) Urine RBC (Auto) Urine Casts (Auto) U Epithel Cells (Auto) Urine Bacteria (Auto) Ur Random Sodium 78 Ur Random Urea Nitrogn 417 Random Vancomycin 12/01/18 12/01/18 12/01/18 05:30 05:30 05:30 WBC 6.6 RBC 4.23 Hgb 11.5 L Hct 34.5 L MCV 81.6 MCH 27.2 MCHC 33.3 RDW 13.1 Plt Count 336 D MPV 8.1 Absolute Neuts (auto) 4.2 Neutrophils % 64.2 Lymphocytes % 20.4 Monocytes % 5.9 Eosinophils % 8.8 H Basophils % 0.7 Nucleated RBC % 0 ESR Sodium 139 Potassium 4.6 Chloride 106 Carbon Dioxide 27 Anion Gap 6 L BUN 32 H Creatinine 1.5 H POC Glucometer Random Glucose 153 H Hemoglobin A1c % Calcium 8.6 Phosphorus 4.9 Magnesium 2.1 Troponin I C-Reactive Protein Urine Color Urine Appearance Urine pH Ur Specific Bell Urine Protein Urine Glucose (UA) Urine Ketones Urine Blood Urine Nitrite Urine Bilirubin Urine Urobilinogen Ur Leukocyte Esterase Urine WBC (Auto) Urine RBC (Auto) Urine Casts (Auto) U Epithel Cells (Auto) Urine Bacteria (Auto) Ur Random Sodium Ur Random Urea Nitrogn Random Vancomycin 12.3 L Active Medications Generic Name Dose Route Start Last Admin Trade Name Franq PRN Reason Stop Dose Admin Amlodipine Besylate 5 mg 11/30/18 10:00 11/30/18 09:00 Norvasc - PO 5 mg DAILY CELESTINO Administration Aspirin 81 mg 12/01/18 10:00 Asa - PO DAILY CELESTINO Atorvastatin Calcium 40 mg 11/30/18 22:00 11/30/18 22:30 Lipitor - PO 40 mg HS CELESTINO Administration Furosemide 40 mg 11/30/18 10:00 11/30/18 09:00 Lasix Injection - IVPUSH 40 mg DAILY CELESTINO Administration Gabapentin 100 mg 11/30/18 06:00 12/01/18 06:29 Neurontin - PO 100 mg TID CELESTINO Administration Heparin Sodium (Porcine) 5,000 unit 11/30/18 02:09 12/01/18 06:29 Heparin - SQ 5,000 unit TID CELESTINO Administration Piperacillin Sod/Tazobactam 50 mls @ 100 mls/hr 12/01/18 09:00 Sod 2.25 gm/ Dextrose IVPB Q6H-IV CELESTINO Protocol Insulin Aspart 1 vial 11/30/18 07:00 12/01/18 06:29 Novolog Vial Sliding Scale - SQ 2 units ACHS CELESTINO Administration Protocol Mupirocin 1 applic 12/01/18 10:00 Bactroban 2% Ointment - TP DAILY [facility] ASSESSMENT/PLAN: 58 year old male with a medical history of hypertension, hyperlipidemia, diabetes, 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 Arechiga for a L second toe ulcer draining ulcer. Admitted for assessment and treatment of ulcer as well as possible CHF exacerbation Foot ulcer -Prior cultures noted, sensitive -Vanc/Zosyn for now, cultures pending -ID consult appreciated -Vanc level 12.3 this AM -Continue zosyn -Continue vanc as per trough -Podiatry consult appreciated, no surgical intervention at this time -MRI pending to evaluate for osteomyelitis Chest pain - resolved -Repeat EKG similar compared to EKG without changes -Troponin negative -discussed with cardiology -Recent cath noted from [place] without any concerning occlusion JASWINDER -Increased Cr from past admission -unsure exact etiology, possibly heart failure exacerbation causing prerenal azotemia -hold fluids due to acute volume overloaded appearance -hold julio -renal US without signs of obstruction or hydronephrosis -UA with 2+ protein, 1+ glucose NIDDM -Hold glipizide -BGMs ACHS -Insulin sliding scale Acute on chronic diastolic CHF -Repeat echo pending -Cardiology consult appreciated -Resume home lasix, though patient has not been taking at home as he ran out -Monitor volume status HTN -mildly elevated -Hold losartan with renal function -Norvasc 5 mg PO daily, increase to 10 mg PO Daily as per cardiology -Consider Coreg low dose HLD -cont lipitor 40 mg PO HS FEN -none -monitor and replete -Diabetic/Na controlled diet DVT Prophylaxis -Hep 5000 units SQ TID Disposition Telemetry, pt without insurance so home medication compliance is complicated Visit type - Emergency Visit Emergency Visit: Yes ED Registration Date: 11/30/18 Care time: The patient presented to the Emergency Department on the above date and was hospitalized for further evaluation of their emergent condition. - New Patient This patient is new to me today: No - Critical Care Critical Care patient: No
--- NOTE | 2018-12-01 08:24 | PN ---
Teaching Attending Note Name of Resident: Juan Diego Morris ATTENDING PHYSICIAN STATEMENT I saw and evaluated the patient. I reviewed the resident's note and discussed the case with the resident. I agree with the resident's findings and plan as documented. SUBJECTIVE: Patient has no new complains. No fever or chills. OBJECTIVE: Vital Signs Temperature 98.1 F 12/01/18 05:44 Pulse Rate 78 12/01/18 05:44 Respiratory Rate 20 12/01/18 05:44 Blood Pressure 153/88 12/01/18 05:44 O2 Sat by Pulse Oximetry (%) 99 12/01/18 00:16 GENERAL: The patient is awake, alert, and fully oriented, in no acute distress. HEAD: Normal with no signs of trauma. EYES: PERRL, extraocular movements intact, sclera anicteric, conjunctiva clear. . ENT: Ears normal, oropharynx clear without exudates, moist mucous membranes. NECK: Trachea midline, full range of motion, supple. LUNGS: Breath sounds equal, clear to auscultation bilaterally, no wheezes, no crackles, no accessory muscle use. HEART: Regular rate and rhythm, S1, S2 without murmur, rub or gallop. ABDOMEN: Soft, nontender, nondistended, normoactive bowel sounds, no guarding, no rebound, no hepatosplenomegaly, no masses. EXTREMITIES: 2+ pulses, warm, Left foot open wound, and swelling , positive for edema 2 plus. NEUROLOGICAL: Cranial nerves II through XII grossly intact. Normal speech, gait not observed. PSYCH: Normal mood, normal affect. SKIN: Warm, dry, normal turgor, no rashes or lesions noted WBC 6.6 K/mm3 (4.0-10.0) 12/01/18 05:30 RBC 4.23 M/mm3 (4.00-5.60) 12/01/18 05:30 Hgb 11.5 GM/dL (11.7-16.9) L 12/01/18 05:30 Hct 34.5 % (35.4-49) L 12/01/18 05:30 MCV 81.6 fl (80-96) 12/01/18 05:30 MCHC 33.3 g/dl (32.0-35.9) 12/01/18 05:30 RDW 13.1 % (11.9-15.9) 12/01/18 05:30 Plt Count 336 K/MM3 (134-434) D 12/01/18 05:30 MPV 8.1 fl (7.5-11.1) 12/01/18 05:30 CMP Sodium 139 mmol/L (136-145) 12/01/18 05:30 Potassium 4.6 mmol/L (3.5-5.1) 12/01/18 05:30 Chloride 106 mmol/L (98-107) 12/01/18 05:30 Carbon Dioxide 27 mmol/L (21-32) 12/01/18 05:30 Anion Gap 6 MMOL/L (8-16) L 12/01/18 05:30 BUN 32 mg/dL (7-18) H 12/01/18 05:30 Creatinine 1.5 mg/dL (0.55-1.3) H 12/01/18 05:30 Creat Clearance w eGFR 48.24 (>60) 11/30/18 05:30 Random Glucose 153 mg/dL (74-106) H 12/01/18 05:30 Calcium 8.6 mg/dL (8.5-10.1) 12/01/18 05:30 Total Bilirubin 0.2 mg/dL (0.2-1) 11/29/18 23:33 AST 13 U/L (15-37) L 11/29/18 23:33 ALT 14 U/L (13-61) 11/29/18 23:33 Alkaline Phosphatase 129 U/L (45-117) H 11/29/18 23:33 Total Protein 6.3 g/dl (6.4-8.2) L 11/29/18 23:33 Albumin 2.6 g/dl (3.4-5.0) L 11/29/18 23:33 CARDIAC ENZYMES Creatine Kinase 127 U/L (26-308) 11/29/18 23:33 Troponin I < 0.02 ng/ml (0.00-0.05) 11/30/18 12:00 Microbiology Current Medications Generic Name Dose Route Start Last Admin Trade Name Freq PRN Reason Stop Dose Admin Amlodipine Besylate 10 mg 12/02/18 10:00 Norvasc - PO DAILY [facility] Aspirin 81 mg 12/01/18 10:00 12/01/18 09:22 Asa - PO 81 mg DAILY [facility]INO Administration Atorvastatin Calcium 40 mg 11/30/18 22:00 11/30/18 22:30 Lipitor - PO 40 mg HS [facility]INO Administration Furosemide 40 mg 11/30/18 10:00 12/01/18 09:22 Lasix Injection - IVPUSH 40 mg DAILY CELE[facility]INO Administration Gabapentin 100 mg 11/30/18 06:00 12/01/18 14:05 Neurontin - PO 100 mg TID CELE[facility]INO Administration Heparin Sodium (Porcine) 5,000 unit 11/30/18 02:09 12/01/18 14:05 Heparin - SQ 5,000 unit TID CE[facility]INO Administration Piperacillin Sod/Tazobactam 50 mls @ 100 mls/hr 12/01/18 09:00 12/01/18 14:10 Sod 2.25 gm/ Dextrose IVPB 100 mls/hr Q6H-IV [facility] Administration Protocol Insulin Aspart 1 vial 11/30/18 07:00 12/01/18 12:20 Novolog Vial Sliding Scale - SQ 4 units ACHS [facility]LE[facility]INO Administration Protocol Mupirocin 1 applic 12/01/18 10:00 12/01/18 12:25 Bactroban 2% Ointment - TP 1 applic DAILY CELESTINO Administration 11/29/18 23:26 Foot - Left Dorsum Gram Stain - Final 11/29/18 23:26 Foot - Left Dorsum Wound Culture - Preliminary Non Lactose Fermenting Gnb Non Lactose Fermenting Gnb#2 Non Lactose Fermenting Gnb#3 Lactose Fermenting Neg Bacilli Staphylococcus Species Group D Strep Or Entero Coccus Beta Hemolytic Strep 11/30/18 13:20 Urine - Urine Clean Catch Urine Culture - Final NO GROWTH OBTAINED 11/29/18 23:33 Blood - Peripheral Venous Blood Culture - Preliminary NO GROWTH OBTAINED AFTER 24 HOURS, INCUBATION TO CONTINUE FOR 4 DAYS. 11/29/18 23:33 Blood - Peripheral Venous Blood Culture - Preliminary NO GROWTH OBTAINED AFTER 24 HOURS, INCUBATION TO CONTINUE FOR 4 DAYS. 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 CKD, AIN in previous admisison, HLP, Recent cath in 03/13 with non obstructive disease who presented with L foot ulcer with drainage. # Acute left open foot ulcer: with No crepitus ,X ray reviewed, small amout of gas seen is likely due to the ulcer itself. previous bone cx and soft tissue culture reviewed( proteus, E coli, E. fecalis, Staph epi,) cx is pending, continue Zosyn, given Vanco in ED. Id on the case. MRI ordered to r/o Osteo. # Acute CP: initial EKG reviewed . trop normal . Spoke to Dr. Duncan, will add either BB or Imdur for chest pain since, since patient has chronic chest pain and had recent stress test with eco without any issues s/p post negative cath in 03/13. # T2DM : takes glipizide at home. hold and give SSI , A1c 9.1 %, will add Levemir to have better control the sugar level. # JASWINDER over chronic renal failure. # Acute diastolic CHF exacerbation : echo form 03/13 reviewed. On IV lasix continue, weight and I&O # HTN: hold ARB due to renal failure. cont norvasc, can change to losartan when renal failure improved DVT Px : heparin
[2018-12-01] MEDS ORDERED: PT OWN MED DRAWER 7, Y5N ONE (09:10)
[2018-12-01] MEDS: ASPIRIN 81 MG CHEWABLE TABLETS PO SCH (09:22)
[2018-12-01] MEDS: FUROSEMIDE 40 MG/4 ML INJECTABLE VIAL IVPUSH SCH (09:22)
[2018-12-01] MEDS: amLODIPine BESYLATE 5 MG TABLET (FP) PO SCH (09:22)
--- NOTE | 2018-12-01 09:49 | PN ---
Progress Note (short form) - Note Progress Note: s: Current Medications Amlodipine Besylate (Norvasc -) 5 mg PO DAILY [facility] Last Admin: 12/01/18 09:22 Dose: 5 mg Aspirin (Asa -) 81 mg PO DAILY [facility] Last Admin: 12/01/18 09:22 Dose: 81 mg Atorvastatin Calcium (Lipitor -) 40 mg PO HS [facility] Last Admin: 11/30/18 22:30 Dose: 40 mg Furosemide (Lasix Injection -) 40 mg IVPUSH DAILY [facility] Last Admin: 12/01/18 09:22 Dose: 40 mg Gabapentin (Neurontin -) 100 mg PO TID [facility] Last Admin: 12/01/18 06:29 Dose: 100 mg Heparin Sodium (Porcine) (Heparin -) 5,000 unit SQ TID [facility] Last Admin: 12/01/18 06:29 Dose: 5,000 unit Piperacillin Sod/Tazobactam (Sod 2.25 gm/ Dextrose) 50 mls @ 100 mls/hr IVPB Q6H-IV [facility]; Protocol Last Admin: 12/01/18 09:22 Dose: 100 mls/hr Insulin Aspart (Novolog Vial Sliding Scale -) 1 vial SQ ACHS [facility]; Protocol Last Admin: 12/01/18 06:29 Dose: 2 units Mupirocin (Bactroban 2% Ointment -) 1 applic TP DAILY [facility] Vital Signs Period Temp Pulse Resp BP Sys/Garner Pulse Ox Last 24 Hr 98.1 F-98.7 F 77-86 16-20 148-174/86-93 98-99 Constitutional: Yes: Well Nourished, No Distress, Calm Eyes: Yes: Conjunctiva Clear, EOM Intact HENT: Yes: Atraumatic, Normocephalic Neck: Yes: Supple, no JVD Respiratory: Yes: Regular, CTA Bilaterally Gastrointestinal: Yes: Normal Bowel Sounds, Soft Cardiovascular: Yes: Regular Rate and Rhythm Heart Sounds: Yes: S1, S2 Edema: 2+ pitting edema bilaterally Peripheral Pulses: 2+ Left Doralis Pedis, 2+ Right Dorsalis Pedis Neurological: Yes: Alert, Oriented Psychiatric: Yes: Alert, Oriented Assessment/Plan echo 02/26/18 borderline low LV function, grade I diastolic dysfunction, mild to mod MR, mild TR, RV nl size and function, mild hypokinesis of inf wall Nuclear pharm stress 03/01/18 sm to mod zone of inferior wall reversible defect from base to apex consistent with mild intensity ischemia. 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 monitor daily weights, Cr, lytes CAD, chest pain - nonobstructive on cath 02/2018 - has had two episodes while here; trop negative, EKG no ischemic changes - unlikely ACS. may be in setting of diastolic CHF exac - continue statin, aspirin foot ulcer - manage per podiatry, ID JASWINDER - stable Cr, monitor with diuresis HTN - on amlodipine, not well controlled here. increase to 10 mg daily - holding arb for JASWINDER HLD - cont statin
[2018-12-01 10:07] LABS: CREATININE 1.5 mg/dL (0.55-1.3)
--- NOTE | 2018-12-01 10:44 | EKG ---
Test Reason : Blood Pressure : / mmHG Vent. Rate : 074 BPM Atrial Rate : 074 BPM P-R Int : 186 ms QRS Dur : 108 ms QT Int : 376 ms P-R-T Axes : 033 -35 158 degrees QTc Int : 417 ms NORMAL SINUS RHYTHM LEFT AXIS DEVIATION VOLTAGE CRITERIA FOR LEFT VENTRICULAR HYPERTROPHY T WAVE ABNORMALITY, CONSIDER LATERAL ISCHEMIA ABNORMAL ECG WHEN COMPARED WITH ECG OF 30-NOV-2018 16:44, NO SIGNIFICANT CHANGE WAS FOUND Confirmed by BAKARI KINGSTON, HEMA ([id number]) on 12/01/2018 10:44:21 AM Referred By: Confirmed By:HEMA VILLEGAS MD
[2018-12-01] MEDS: MUPIROCIN 2% TOPICAL OINTMENT 22 GM TUBE TP SCH (12:25)
--- NOTE | 2018-12-01 13:03 | PN ---
Progress Note (short form) - Note Progress Note: Podiatry: 58 year old diabetic male with left 2nd plantar sulcus diabetic ulcer. No bone exposed, no purulence, no fluctuance, no streaking cellulitis, no signs of active infection. Mild tenderness to palpation. MRI depicts tiny focus of signal intensity at the distal residual proximal phalanx, early osteomyelitis cannot be excluded. Will discuss with infectious disease regarding treatment options. Continue local wound care for now. Elder Ybarra DPM
[2018-12-01] MEDS: ATORVASTATIN CA 40 MG TABLET (FP) PO SCH (21:07)
[2018-12-02] MEDS ORDERED: PIPERACILLIN/TAZOBACTAM 2.25 GM VIAL IVPB ONE ×4 (01:40→21:19)
[2018-12-02] MEDS ORDERED: DEXTROSE 5%-WATER - 50 ML IVPB ONE ×4 (01:41→21:20)
[2018-12-02] MEDS: PIPERACILLIN/TAZOB 2.25 GM 2.25 GM in DEXTROSE 5%-WATER - 50 ML IVPB SCH ×4 (02:07→21:27)
[2018-12-02 06:04] LABS: BASO % 0.7 % (0-2.0); EOS % 8.4 % (0-4.5); HEMATOCRIT 34.3 % (35.4-49); HEMOGLOBIN 11.4 GM/dL (11.7-16.9); LYMPH % 17.3 % (8-40); MCH 27.1 pg (25.7-33.7); MCHC 33.2 g/dl (32.0-35.9); MEAN CELL VOLUME 81.5 fl (80-96); MEAN PLT VOLUME 7.9 fl (7.5-11.1); MONO % 6.1 % (3.8-10.2); NEUT % 67.5 % (42.8-82.8); PLATELET COUNT 334 K/MM3 (134-434); RBC 4.22 M/mm3 (4.00-5.60); RDW 13.1 % (11.9-15.9); WHITE BLOOD COUNT 8.1 K/mm3 (4.0-10.0)
[2018-12-02] MEDS: INSULIN SLIDING SCALE (NOVOLOG) 1 VIAL SQ SCH ×4 (06:05→21:28)
[2018-12-02] MEDS: GABAPENTIN 100 MG CAPSULE (FP) PO SCH ×3 (06:05→21:28)
[2018-12-02] MEDS: HEPARIN NA (PORCINE) 5,000 UNITS/ML 1ML VIAL SQ SCH ×3 (06:05→21:28)
--- NOTE | 2018-12-02 06:39 | PN ---
Progress Note (short form) - Note Progress Note: Podiatry F/U; Seen/evaluated at bedside, resting comfortably NAD. Denies F/V/N/c/SOB/CP. Afebrile. JESSIE: L foot: pedal pulses palpable, TG wnl, CFT brisk to toes. There is a plantar second digit sulcus diabetic ulcer with fibrogranular base, moderate slough, no probing to bone, no deep purulence, no fluctuance, no streaking cellulitis, no soft tissue crepitus, no signs of active infection. No tenderness to palpation. No ischemic changes. Significant swelling to bilateral LEs. Wound Cx: poly-organism Labs: pending today Imp: 58 year old diabetic male with left foot diabetic ulcer 1. IV abx per ID 2. Continue local care 3. Wound looks like it is improving, would encouraged minimizing weightbearing activity 4. Will follow Elder Ybarra DPM
[2018-12-02 06:41] LABS: CALCIUM 8.4 mg/dL (8.5-10.1); CREATININE 1.8 mg/dL (0.55-1.3); MAGNESIUM 1.9 mg/dL (1.8-2.4); PHOSPHOROUS 5.6 mg/dL (2.5-4.9); POTASSIUM 4.9 mmol/L (3.5-5.1)
--- NOTE | 2018-12-02 08:57 | PN ---
Physical Exam: SUBJECTIVE: Patient seen and examined this AM. States he is doing well. States his pain is similar to before, occasional pain in the right foot as well, however no wound or trauma to that foot noted. OBJECTIVE: Vital Signs Period Temp Pulse Resp BP Sys/Garner Pulse Ox Last 24 Hr 97.4 F-98.4 F 70-82 16-18 99-149/61-92 99-99 GEN: alert and oriented, no acute distress HEENT: Moist mucus membranes, PERRL HEART: Regular rate and rhythm, no murmurs noted LUNGS: CTA b/l, no wheezes noted ABDOMEN: Soft, nontender, normoactive bowel sounds EXTREMITIES: 1+ peripheral edema, Left great toe amputation healed well. left 2nd toe partial amputation. 1cm diameter ulceration with mild erythema, scant serosanguinous drainage. no crepitus noted, drainage noted on dressing, slightly macerated Laboratory Results - last 24 hr 12/01/18 12/01/18 12/01/18 05:30 12:19 16:20 WBC RBC Hgb Hct MCV MCH MCHC RDW Plt Count MPV Absolute Neuts (auto) Neutrophils % Lymphocytes % Monocytes % Eosinophils % Basophils % Nucleated RBC % Sodium 139 Potassium 4.6 Chloride 106 Carbon Dioxide 27 Anion Gap 6 L BUN 32 H Creatinine 1.5 H Est GFR (CKD-EPI)AfAm 59.05 Est GFR (CKD-EPI)NonAf 50.95 POC Glucometer 224 132 Random Glucose 153 H Calcium 8.6 Phosphorus 4.9 Magnesium 2.1 Troponin I < 0.02 12/01/18 12/02/18 12/02/18 20:33 05:28 05:30 WBC 8.1 RBC 4.22 Hgb 11.4 L Hct 34.3 L MCV 81.5 MCH 27.1 MCHC 33.2 RDW 13.1 Plt Count 334 MPV 7.9 Absolute Neuts (auto) 5.4 Neutrophils % 67.5 Lymphocytes % 17.3 Monocytes % 6.1 Eosinophils % 8.4 H Basophils % 0.7 Nucleated RBC % 0 Sodium Potassium Chloride Carbon Dioxide Anion Gap BUN Creatinine Est GFR (CKD-EPI)AfAm Est GFR (CKD-EPI)NonAf POC Glucometer 276 211 Random Glucose Calcium Phosphorus Magnesium Troponin I 12/02/18 05:30 WBC RBC Hgb Hct MCV MCH MCHC RDW Plt Count MPV Absolute Neuts (auto) Neutrophils % Lymphocytes % Monocytes % Eosinophils % Basophils % Nucleated RBC % Sodium 134 L Potassium 4.9 Chloride 102 Carbon Dioxide 27 Anion Gap 6 L BUN 39 H Creatinine 1.8 H Est GFR (CKD-EPI)AfAm 47.37 Est GFR (CKD-EPI)NonAf 40.87 POC Glucometer Random Glucose 217 H Calcium 8.4 L Phosphorus 5.6 H Magnesium 1.9 Troponin I Active Medications Generic Name Dose Route Start Last Admin Trade Name Rickey PRN Reason Stop Dose Admin Amlodipine Besylate 10 mg 12/02/18 10:00 Norvasc - PO DAILY [facility] Aspirin 81 mg 12/01/18 10:00 12/01/18 09:22 Asa - PO 81 mg DAILY [facility] Administration Atorvastatin Calcium 40 mg 11/30/18 22:00 12/01/18 21:07 Lipitor - PO 40 mg HS [facility] Administration Furosemide 40 mg 11/30/18 10:00 12/01/18 09:22 Lasix Injection - IVPUSH 40 mg DAILY [facility] Administration Gabapentin 100 mg 11/30/18 06:00 12/02/18 06:05 Neurontin - PO 100 mg TID [facility] Administration Heparin Sodium (Porcine) 5,000 unit 11/30/18 02:09 12/02/18 06:05 Heparin - SQ 5,000 unit TID [facility] Administration Piperacillin Sod/Tazobactam 50 mls @ 100 mls/hr 12/01/18 09:00 12/02/18 02:07 Sod 2.25 gm/ Dextrose IVPB 100 mls/hr Q6H-IV [facility] Administration Protocol Insulin Aspart 1 vial 11/30/18 07:00 12/02/18 06:05 Novolog Vial Sliding Scale - SQ 4 units ACHS [facility] Administration Protocol Mupirocin 1 applic 12/01/18 10:00 12/01/18 12:25 Bactroban 2% Ointment - TP 1 applic DAILY [facility] Administration ASSESSMENT/PLAN: 58 year old male with a medical history of hypertension, hyperlipidemia, diabetes, 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 Arechiga for a L second toe ulcer draining ulcer. Admitted for assessment and treatment of ulcer as well as possible CHF exacerbation Foot ulcer -Prior cultures noted, sensitive -Vanc/Zosyn for now, cultures pending -ID consult appreciated -Vanc level 12.3 this AM -Continue zosyn -Continue vanc as per trough -Podiatry consult appreciated, no surgical intervention at this time -MRI with small focus possibly consistent with early osteo Chest pain - resolved -Repeat EKG similar compared to EKG without changes -Troponin negative -discussed with cardiology -Recent cath noted from [place] without any concerning occlusion JASWINDER -Increased Cr from past admission -unsure exact etiology, possibly heart failure exacerbation causing prerenal azotemia -hold fluids due to acute volume overloaded appearance -hold julio -renal US without signs of obstruction or hydronephrosis -UA with 2+ protein, 1+ glucose -Hold Lasix due to improvement of volume status and increase BUN/Cr NIDDM -Hold glipizide -BGMs ACHS -Insulin sliding scale Acute on chronic diastolic CHF -Repeat echo pending -Cardiology consult appreciated -still appears volume overloaded in LEs, BUN/Cr increasing, consider holding lasix? -Monitor volume status HTN -mildly elevated -Hold losartan with renal function -Norvasc 5 mg PO daily, increase to 10 mg PO Daily as per cardiology -Consider Coreg low dose HLD -cont lipitor 40 mg PO HS FEN -none -monitor and replete -Diabetic/Na controlled diet DVT Prophylaxis -Hep 5000 units SQ TID Disposition Telemetry, pt without insurance so home medication compliance is complicated Visit type - Emergency Visit Emergency Visit: Yes ED Registration Date: 11/30/18 Care time: The patient presented to the Emergency Department on the above date and was hospitalized for further evaluation of their emergent condition. - New Patient This patient is new to me today: No - Critical Care Critical Care patient: No
[2018-12-02] MEDS: ASPIRIN 81 MG CHEWABLE TABLETS PO SCH (09:40)
[2018-12-02] MEDS: amLODIPine BESYLATE 10 MG TABLET (FP) PO SCH (09:40)
[2018-12-02] MEDS: MUPIROCIN 2% TOPICAL OINTMENT 22 GM TUBE TP SCH (09:45)
[2018-12-02] MEDS ORDERED: DOCUSATE NA 100 MG/10 ML UNIT-DOSE CUPS PO PRN (10:06)
[2018-12-02] MEDS ORDERED: GLYCERIN 1 RECTAL SUPPOSITORY, ADULT RC PRN (10:06)
[2018-12-02] MEDS ORDERED: POLYETHYLENE GLYCOL 3350 119 GM BTL PO ONE (11:00)
--- NOTE | 2018-12-02 11:55 | PN ---
Progress Note (short form) - Note Progress Note: s:no sob cp palps dizzy, le edema better tele: sinus Current Medications Generic Name Dose Route Start Last Admin Trade Name Freq PRN Reason Stop Dose Admin Amlodipine Besylate 10 mg 12/02/18 10:00 12/02/18 09:40 Norvasc - PO 10 mg DAILY [facility]INO Administration Aspirin 81 mg 12/01/18 10:00 12/02/18 09:40 Asa - PO 81 mg DAILY [facility]INO Administration Atorvastatin Calcium 40 mg 11/30/18 22:00 12/01/18 21:07 Lipitor - PO 40 mg HS [facility]LE[facility]INO Administration Docusate Sodium 200 mg 12/02/18 10:06 Colace Liquid - PO DAILY PRN CONSTIPATION Furosemide 40 mg 11/30/18 10:00 12/01/18 09:22 Lasix Injection - IVPUSH 40 mg DAILY [facility]LE[facility]INO Administration Gabapentin 100 mg 11/30/18 06:00 12/02/18 06:05 Neurontin - PO 100 mg TID CELESTINO Administration Glycerin 1 each 12/02/18 10:06 Glycerin Suppository Adult - RC DAILY PRN CONSTIPATION Heparin Sodium (Porcine) 5,000 unit 11/30/18 02:09 12/02/18 06:05 Heparin - SQ 5,000 unit TID [facility]LE[facility]INO Administration Piperacillin Sod/Tazobactam 50 mls @ 100 mls/hr 12/01/18 09:00 12/02/18 09:43 Sod 2.25 gm/ Dextrose IVPB 100 mls/hr Q6H-IV [facility]INO Administration Protocol Insulin Aspart 1 vial 11/30/18 07:00 12/02/18 11:49 Novolog Vial Sliding Scale - SQ 4 units ACHS [facility]INO Administration Protocol Mupirocin 1 applic 12/01/18 10:00 12/02/18 09:45 Bactroban 2% Ointment - TP 1 applic DAILY [facility] Administration Vital Signs Period Temp Pulse Resp BP Sys/Garner Pulse Ox Last 24 Hr 97.4 F-97.9 F 70-81 16-18 99-149/61-93 99-99 Constitutional: Yes: Well Nourished, No Distress, Calm Eyes: Yes: Conjunctiva Clear, EOM Intact HENT: Yes: Atraumatic, Normocephalic Neck: Yes: Supple, no JVD Respiratory: Yes: Regular, CTA Bilaterally Gastrointestinal: Yes: Normal Bowel Sounds, Soft Cardiovascular: Yes: Regular Rate and Rhythm Heart Sounds: Yes: S1, S2 Edema: 1-2+ pitting edema bilaterally Peripheral Pulses: 2+ Left Doralis Pedis, 2+ Right Dorsalis Pedis Neurological: Yes: Alert, Oriented Psychiatric: Yes: Alert, Oriented CBC, BMP 12/02/18 05:30 12/02/18 05:30 Assessment/Plan echo 02/26/18 borderline low LV function, grade I diastolic dysfunction, mild to mod MR, mild TR, RV nl size and function, mild hypokinesis of inf wall Nuclear pharm stress 03/01/18 sm to mod zone of inferior wall reversible defect from base to apex consistent with mild intensity ischemia. nl LV function, ef 52% rest, 58% after stress cath 02/2018 nonobstructive CAD, nl EF EKG: sinus rhythm, LVH with repol CXR: no acute process echo 11/2018 mod conc LVH, nl LV function, RV nl, tr MR, tr TR, mild pulm HTN, tr AR 58M h/o DM, HTN, HLD, s/p L great toe amputation and partial 2nd toe amputation p/w toe ulcer and bilateral lower extremity swelling Acute on chronic diastolic HF exacerbation - BNP >7000 - nl EF with LVH and mild pulm HTN on echo here - ARB held for JASWINDER - vol improving, continue IV lasix. monitor daily weights, Cr, lytes CAD, chest pain - nonobstructive on cath 02/2018 - has had two episodes while here; trop negative, EKG no ischemic changes - unlikely ACS. may be in setting of diastolic CHF exac - continue statin, aspirin foot ulcer - manage per podiatry, ID JASWINDER - stable Cr, monitor with diuresis HTN - on amlodipine, not well controlled here. increase to 10 mg daily - holding arb for JASWINDER HLD - cont statin
--- NOTE | 2018-12-02 13:31 | CONSULT ---
Consult - text type - Consultation Consultation Note: Renal Consult for JASWINDER and fluid overload This is a 58 year old gentleman with hx of DM2, PVD, Osteomylitis of LE who presented wit LE swelling and draning lesion on his left foot. Pt says that his legs were swollen x 2 months. Was on diuretics at home but ran out of meds last week and now swelling is worse. No fever, chills, CP, SOB, abd pain, cough, N/V/D. Tolerating oral diet. Denies any NSAID use. Making urine, denies any flank pain. PMHx: as above Allergies: protonix Family hx: NC Social Hx: No T/A/D ROS: as per HPI Home Medications Medication Instructions Recorded Aspirin 81 mg PO DAILY 11/30/18 Enalapril Maleate [Vasotec -] 10 mg PO DAILY 11/30/18 Furosemide 40 mg PO DAILY 11/30/18 Glipizide [Glipizide ER] 10 mg PO DAILY 11/30/18 Losartan Potassium 100 mg PO DAILY 11/30/18 Vital Signs Temperature 97.9 F 12/02/18 10:00 Pulse Rate 78 12/02/18 10:00 Respiratory Rate 18 12/02/18 10:00 Blood Pressure 146/93 12/02/18 10:00 O2 Sat by Pulse Oximetry (%) 99 12/02/18 09:00 Intake & Output 11/29/18 11/30/18 12/01/18 12/02/18 23:59 23:59 23:59 23:59 Intake Total 1655 430 Balance 1655 430 Weight 93.894 kg 87.543 kg 86.75 kg NAD awake and alert neck supple, no JVD RRR, No M/R CTA, no rales soft, obese, NT/ND ++ edema in LE no bladder distension CBC, BMP 12/02/18 05:30 12/02/18 05:30 Current Medications Amlodipine Besylate (Norvasc -) 10 mg PO DAILY [facility] Last Admin: 12/02/18 09:40 Dose: 10 mg Aspirin (Asa -) 81 mg PO DAILY [facility] Last Admin: 12/02/18 09:40 Dose: 81 mg Atorvastatin Calcium (Lipitor -) 40 mg PO HS [facility] Last Admin: 12/01/18 21:07 Dose: 40 mg Docusate Sodium (Colace Liquid -) 200 mg PO DAILY PRN PRN Reason: CONSTIPATION Furosemide (Lasix Injection -) 40 mg IVPUSH DAILY [facility] Last Admin: 12/01/18 09:22 Dose: 40 mg Gabapentin (Neurontin -) 100 mg PO TID [facility] Last Admin: 12/02/18 06:05 Dose: 100 mg Glycerin (Glycerin Suppository Adult -) 1 each RC DAILY PRN PRN Reason: CONSTIPATION Heparin Sodium (Porcine) (Heparin -) 5,000 unit SQ TID [facility] Last Admin: 12/02/18 06:05 Dose: 5,000 unit Piperacillin Sod/Tazobactam (Sod 2.25 gm/ Dextrose) 50 mls @ 100 mls/hr IVPB Q6H-IV [facility]; Protocol Last Admin: 12/02/18 09:43 Dose: 100 mls/hr Insulin Aspart (Novolog Vial Sliding Scale -) 1 vial SQ ACHS [facility]; Protocol Last Admin: 12/02/18 11:49 Dose: 4 units Mupirocin (Bactroban 2% Ointment -) 1 applic TP DAILY [facility] Last Admin: 12/02/18 09:45 Dose: 1 applic 58 year old gentleman with hx of DM2, PVD, Osteomylitis of LE who presented wit LE swelling and draning lesion on his left foot. #JASWINDER r/o cardio-renal syndrome vs AIN vs. ATN #LE swelling/CHF/Fluid overload #Draining lesion on foot r/o infection #Anemia #Hyponatremia #Hypertension Check urine studies for FeUrea, UPCR, Urine Eosinophils Trend renal function and electrolytes daily with IV diurics Trend daily weghts Renal US w/o signs of obstruction continue Abx as per ID/primary continue IV Lasix daily for now continue amlodipine, goal BP < 140/90 for now thank you Will follow Rufino Rudolph DO
[2018-12-02 14:02] VITALS: BMI 31.8
--- NOTE | 2018-12-02 14:53 | PN ---
Teaching Attending Note Name of Resident: Juan Diego Morris ATTENDING PHYSICIAN STATEMENT I saw and evaluated the patient. I reviewed the resident's note and discussed the case with the resident. I agree with the resident's findings and plan as documented. SUBJECTIVE: Patient is feeling better, the foot is better today, swelling is better but still swollen. OBJECTIVE: Vital Signs Temperature 97.8 F 12/02/18 13:39 Pulse Rate 79 12/02/18 13:39 Respiratory Rate 16 12/02/18 13:39 Blood Pressure 160/96 12/02/18 13:39 O2 Sat by Pulse Oximetry (%) 99 12/02/18 09:00 GENERAL: The patient is awake, alert, and fully oriented, in no acute distress. HEAD: Normal with no signs of trauma. EYES: PERRL, extraocular movements intact, sclera anicteric, conjunctiva clear. . ENT: Ears normal, oropharynx clear without exudates, moist mucous membranes. NECK: Trachea midline, full range of motion, supple. LUNGS: Breath sounds equal, clear to auscultation bilaterally, no wheezes, no crackles, no accessory muscle use. HEART: Regular rate and rhythm, S1, S2 without murmur, rub or gallop. ABDOMEN: Soft, nontender, nondistended, normoactive bowel sounds, no guarding, no rebound, no hepatosplenomegaly, no masses. EXTREMITIES: 2+ pulses, warm, Left foot open wound, and swelling improving, positive for edema 2 plus. NEUROLOGICAL: Cranial nerves II through XII grossly intact. Normal speech, gait not observed. PSYCH: Normal mood, normal affect. SKIN: Warm, dry, normal turgor, no rashes or lesions noted CBCD WBC 8.1 K/mm3 (4.0-10.0) 12/02/18 05:30 RBC 4.22 M/mm3 (4.00-5.60) 12/02/18 05:30 Hgb 11.4 GM/dL (11.7-16.9) L 12/02/18 05:30 Hct 34.3 % (35.4-49) L 12/02/18 05:30 MCV 81.5 fl (80-96) 12/02/18 05:30 MCHC 33.2 g/dl (32.0-35.9) 12/02/18 05:30 RDW 13.1 % (11.9-15.9) 12/02/18 05:30 Plt Count 334 K/MM3 (134-434) 12/02/18 05:30 MPV 7.9 fl (7.5-11.1) 12/02/18 05:30 CMP Sodium 134 mmol/L (136-145) L 12/02/18 05:30 Potassium 4.9 mmol/L (3.5-5.1) 12/02/18 05:30 Chloride 102 mmol/L (98-107) 12/02/18 05:30 Carbon Dioxide 27 mmol/L (21-32) 12/02/18 05:30 Anion Gap 6 MMOL/L (8-16) L 12/02/18 05:30 BUN 39 mg/dL (7-18) H 12/02/18 05:30 Creatinine 1.8 mg/dL (0.55-1.3) H 12/02/18 05:30 Creat Clearance w eGFR 48.24 (>60) 11/30/18 05:30 Random Glucose 217 mg/dL (74-106) H 12/02/18 05:30 Calcium 8.4 mg/dL (8.5-10.1) L 12/02/18 05:30 Total Bilirubin 0.2 mg/dL (0.2-1) 11/29/18 23:33 AST 13 U/L (15-37) L 11/29/18 23:33 ALT 14 U/L (13-61) 11/29/18 23:33 Alkaline Phosphatase 129 U/L (45-117) H 11/29/18 23:33 Total Protein 6.3 g/dl (6.4-8.2) L 11/29/18 23:33 Albumin 2.6 g/dl (3.4-5.0) L 11/29/18 23:33 CARDIAC ENZYMES Creatine Kinase 127 U/L (26-308) 11/29/18 23:33 Troponin I < 0.02 ng/ml (0.00-0.05) 12/01/18 05:30 Current Medications Generic Name Dose Route Start Last Admin Trade Name Freq PRN Reason Stop Dose Admin Amlodipine Besylate 10 mg 12/02/18 10:00 12/02/18 09:40 Norvasc - PO 10 mg DAILY CELESTINO Administration Aspirin 81 mg 12/01/18 10:00 12/02/18 09:40 Asa - PO 81 mg DAILY CELESTINO Administration Atorvastatin Calcium 40 mg 11/30/18 22:00 12/01/18 21:07 Lipitor - PO 40 mg HS CELESTINO Administration Docusate Sodium 200 mg 12/02/18 10:06 Colace Liquid - PO DAILY PRN CONSTIPATION Furosemide 40 mg 11/30/18 10:00 12/01/18 09:22 Lasix Injection - IVPUSH 40 mg DAILY CELESTINO Administration Gabapentin 100 mg 11/30/18 06:00 12/02/18 14:32 Neurontin - PO 100 mg TID CELESTINO Administration Glycerin 1 each 12/02/18 10:06 Glycerin Suppository Adult - RC DAILY PRN CONSTIPATION Heparin Sodium (Porcine) 5,000 unit 11/30/18 02:09 12/02/18 14:32 Heparin - SQ 5,000 unit TID CELESTINO Administration Piperacillin Sod/Tazobactam 50 mls @ 100 mls/hr 12/01/18 09:00 12/02/18 14:33 Sod 2.25 gm/ Dextrose IVPB 100 mls/hr Q6H-IV CELESTINO Administration Protocol Insulin Aspart 1 vial 11/30/18 07:00 12/02/18 11:49 Novolog Vial Sliding Scale - SQ 4 units ACHS [facility] Administration Protocol Mupirocin 1 applic 12/01/18 10:00 12/02/18 09:45 Bactroban 2% Ointment - TP 1 applic DAILY CELESTINO Administration Home Medications Medication Instructions Recorded Aspirin 81 mg PO DAILY 11/30/18 Enalapril Maleate [Vasotec -] 10 mg PO DAILY 11/30/18 Furosemide 40 mg PO DAILY 11/30/18 Glipizide [Glipizide ER] 10 mg PO DAILY 11/30/18 Losartan Potassium 100 mg PO DAILY 11/30/18 Microbiology 11/29/18 23:26 Foot - Left Dorsum Gram Stain - Final 11/29/18 23:26 Foot - Left Dorsum Wound Culture - Preliminary Morganella Morganii Non Lactose Fermenting Gnb#2 Non Lactose Fermenting Gnb#3 Lactose Fermenting Neg Bacilli Presumptive Mssa (Pbp2a Neg) Group D Strep Or Entero Coccus Streptococcus Pyogenes Grp A Staphylococcus Coagulase Neg 11/29/18 23:33 Blood - Peripheral Venous Blood Culture - Preliminary NO GROWTH OBTAINED AFTER 48 HOURS, INCUBATION TO CONTINUE FOR 3 DAYS. 11/29/18 23:33 Blood - Peripheral Venous Blood Culture - Preliminary NO GROWTH OBTAINED AFTER 48 HOURS, INCUBATION TO CONTINUE FOR 3 DAYS. 11/30/18 13:20 Urine - Urine Clean Catch Urine Culture - Final NO GROWTH OBTAINED ASSESSMENT AND PLAN: 58 y/o man with h/o DM, HTN, OM inL foot s/p 1st and partial second toe amputation, ? CKD, AIN in previous admisison, HLP, Recent cath in 03/13 with non obstructive disease who presented with L foot ulcer with drainage. # Acute left open foot ulcer: On IV Zosyn, given Vanco in ED. Id on the case. MRI of the left foot reviewed , cannot r/o osteo. multiple organism growing on the wound cx. continue IV antibiotic, further Abx per ID. # ARF with worsening creatinine, palak get to see the patient. # Acute CP: initial EKG reviewed . trop normal . Spoke to Dr. Duncan, will add either BB or Imdur if needed. patient had cardiac w/u done recently with no acute changes . # T2DM : takes glipizide at home. hold and give SSI , A1c 9.1 %, will add Levemir to have better control the sugar level. # Acute diastolic CHF exacerbation : echo form 03/13 reviewed. On IV lasix continue, weight and I&O # HTN: hold ARB due to renal failure. cont norvasc, can change to losartan when renal failure improved DVT Px : heparin Laboratory Tests 11/29/18 11/30/18 12/01/18 23:33 05:30 05:30 Creatinine 1.7 H 1.5 H 1.5 H 12/02/18 05:30 Creatinine 1.8 H
[2018-12-02] MEDS: ATORVASTATIN CA 40 MG TABLET (FP) PO SCH (21:28)
[2018-12-03] MEDS ORDERED: PIPERACILLIN/TAZOBACTAM 2.25 GM VIAL IVPB ONE ×4 (01:57→20:57)
[2018-12-03] MEDS ORDERED: DEXTROSE 5%-WATER - 50 ML IVPB ONE ×4 (01:57→20:58)
[2018-12-03] MEDS: PIPERACILLIN/TAZOB 2.25 GM 2.25 GM in DEXTROSE 5%-WATER - 50 ML IVPB SCH ×4 (02:05→21:30)
[2018-12-03] MEDS: HEPARIN NA (PORCINE) 5,000 UNITS/ML 1ML VIAL SQ SCH ×3 (06:32→21:31)
[2018-12-03] MEDS: INSULIN SLIDING SCALE (NOVOLOG) 1 VIAL SQ SCH ×4 (06:33→21:31)
[2018-12-03] MEDS: GABAPENTIN 100 MG CAPSULE (FP) PO SCH ×3 (06:33→21:31)
[2018-12-03] MEDS: INSULIN (LEVEMIR) 100 UNITS/ML UNITS SQ SCH (06:33)
[2018-12-03 07:33] LABS: BASO % 0.6 % (0-2.0); EOS % 8.1 % (0-4.5); HEMATOCRIT 36.3 % (35.4-49); HEMOGLOBIN 12.2 GM/dL (11.7-16.9); LYMPH % 16.6 % (8-40); MCH 27.1 pg (25.7-33.7); MCHC 33.5 g/dl (32.0-35.9); MEAN CELL VOLUME 80.9 fl (80-96); MEAN PLT VOLUME 8.2 fl (7.5-11.1); MONO % 4.3 % (3.8-10.2); NEUT % 70.4 % (42.8-82.8); PLATELET COUNT 357 K/MM3 (134-434); RBC 4.49 M/mm3 (4.00-5.60); RDW 13.4 % (11.9-15.9)
[2018-12-03 07:37] LABS: ALBUMIN 2.8 g/dl (3.4-5.0); BILIRUBIN,TOTAL 0.3 mg/dL (0.2-1); CALCIUM 8.6 mg/dL (8.5-10.1); CREATININE 1.6 mg/dL (0.55-1.3); MAGNESIUM 2.3 mg/dL (1.8-2.4); PHOSPHOROUS 5.3 mg/dL (2.5-4.9); POTASSIUM 5.3 mmol/L (3.5-5.1); TOT PROT 6.9 g/dl (6.4-8.2)
--- NOTE | 2018-12-03 07:53 | PN ---
Physical Exam: SUBJECTIVE: Patient seen and examined this AM. he states he is doing well but has still not had a bowel movement in 5 days despite the regimen given yesterday. Discussed with patient will increase the regimen until successful bowel movement OBJECTIVE: Vital Signs Period Temp Pulse Resp BP Sys/Garner Pulse Ox Last 24 Hr 97.7 F-98.1 F 75-81 16-18 103-160/66-96 99-99 GEN: alert and oriented, no acute distress HEENT: Moist mucus membranes, PERRL HEART: Regular rate and rhythm, no murmurs noted LUNGS: CTA b/l, no wheezes noted ABDOMEN: Soft, nontender, normoactive bowel sounds EXTREMITIES: 1+ peripheral edema, Left great toe amputation healed well. left 2nd toe partial amputation. 1cm diameter ulceration with mild erythema, scant serosanguinous drainage. no crepitus noted, drainage noted on dressing, slightly macerated Laboratory Results - last 24 hr 12/02/18 12/02/18 12/02/18 11:47 16:30 16:35 WBC RBC Hgb Hct MCV MCH MCHC RDW Plt Count MPV Absolute Neuts (auto) Neutrophils % Lymphocytes % Monocytes % Eosinophils % Basophils % Nucleated RBC % Sodium Potassium Chloride Carbon Dioxide Anion Gap BUN Creatinine Est GFR (CKD-EPI)AfAm Est GFR (CKD-EPI)NonAf POC Glucometer 208 161 Random Glucose Calcium Phosphorus Magnesium Total Bilirubin AST ALT Alkaline Phosphatase Total Protein Albumin Ur Random Creatinine 46.0 U Random Total Protein 139.3 H Ur Random Sodium 38 L Ur Random Urea Nitrogn 421 12/02/18 12/03/18 12/03/18 21:24 06:00 06:00 WBC 8.0 RBC 4.49 Hgb 12.2 Hct 36.3 MCV 80.9 MCH 27.1 MCHC 33.5 RDW 13.4 Plt Count 357 MPV 8.2 Absolute Neuts (auto) 5.6 Neutrophils % 70.4 Lymphocytes % 16.6 Monocytes % 4.3 Eosinophils % 8.1 H Basophils % 0.6 Nucleated RBC % 0 Sodium 135 L Potassium 5.3 H Chloride 102 Carbon Dioxide 25 Anion Gap 7 L BUN 39 H Creatinine 1.6 H Est GFR (CKD-EPI)AfAm 54.61 Est GFR (CKD-EPI)NonAf 47.12 POC Glucometer 201 Random Glucose 157 H Calcium 8.6 Phosphorus 5.3 H Magnesium 2.3 Total Bilirubin 0.3 AST 14 L ALT 13 Alkaline Phosphatase 100 Total Protein 6.9 Albumin 2.8 L Ur Random Creatinine U Random Total Protein Ur Random Sodium Ur Random Urea Nitrogn 12/03/18 06:30 WBC RBC Hgb Hct MCV MCH MCHC RDW Plt Count MPV Absolute Neuts (auto) Neutrophils % Lymphocytes % Monocytes % Eosinophils % Basophils % Nucleated RBC % Sodium Potassium Chloride Carbon Dioxide Anion Gap BUN Creatinine Est GFR (CKD-EPI)AfAm Est GFR (CKD-EPI)NonAf POC Glucometer 154 Random Glucose Calcium Phosphorus Magnesium Total Bilirubin AST ALT Alkaline Phosphatase Total Protein Albumin Ur Random Creatinine U Random Total Protein Ur Random Sodium Ur Random Urea Nitrogn Active Medications Generic Name Dose Route Start Last Admin Trade Name Freq PRN Reason Stop Dose Admin Amlodipine Besylate 10 mg 12/02/18 10:00 12/02/18 09:40 Norvasc - PO 10 mg DAILY CELESTINO Administration Aspirin 81 mg 12/01/18 10:00 12/02/18 09:40 Asa - PO 81 mg DAILY CELESTINO Administration Atorvastatin Calcium 40 mg 11/30/18 22:00 12/02/18 21:28 Lipitor - PO 40 mg HS CELESTINO Administration Docusate Sodium 200 mg 12/02/18 10:06 Colace Liquid - PO DAILY PRN CONSTIPATION Furosemide 40 mg 11/30/18 10:00 12/01/18 09:22 Lasix Injection - IVPUSH 40 mg DAILY CELESTINO Administration Gabapentin 100 mg 11/30/18 06:00 12/03/18 06:33 Neurontin - PO 100 mg TID CELESTINO Administration Glycerin 1 each 12/02/18 10:06 Glycerin Suppository Adult - RC DAILY PRN CONSTIPATION Heparin Sodium (Porcine) 5,000 unit 11/30/18 02:09 12/03/18 06:32 Heparin - SQ 5,000 unit TID CELESTINO Administration Piperacillin Sod/Tazobactam 50 mls @ 100 mls/hr 12/01/18 09:00 12/03/18 02:05 Sod 2.25 gm/ Dextrose IVPB 100 mls/hr Q6H-IV CELESTINO Administration Protocol Insulin Aspart 1 vial 11/30/18 07:00 12/03/18 06:33 Novolog Vial Sliding Scale - SQ 2 units ACHS CELESTINO Administration Protocol Insulin Detemir 6 units 12/03/18 07:00 12/03/18 06:33 Levemir Vial SQ 6 units AM CELESTINO Administration Mupirocin 1 applic 12/01/18 10:00 12/02/18 09:45 Bactroban 2% Ointment - TP 1 applic DAILY CELESTINO Administration ASSESSMENT/PLAN: 58 year old male with a medical history of hypertension, hyperlipidemia, diabetes, 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 Arechiga for a L second toe ulcer draining ulcer. Admitted for assessment and treatment of ulcer as well as possible CHF exacerbation Foot ulcer -Prior cultures noted, sensitive -Vanc/Zosyn for now, cultures noted -ID consult appreciated -Continue zosyn -Continue vanc as per trough -Podiatry consult appreciated, no surgical intervention at this time -MRI with small focus possibly consistent with early osteo -Awaiting recs for timeline of IV vs PO Abx for d/c planning Chest pain - resolved -ACS workup negative -discussed with cardiology -Recent cath noted from [employer] without any concerning occlusion JASWINDER -stable/improving -hold julio -renal US without signs of obstruction or hydronephrosis -UA with 2+ protein, 1+ glucose -FeUrea 12% suggests prerenal cause -Continue lasix cautiously NIDDM -Hold glipizide -BGMs ACHS -Insulin sliding scale Acute on chronic diastolic CHF -Repeat echo unremarkable -Cardiology consult appreciated -still appears volume overloaded in LEs, BUN/Cr increasing -Monitor volume status HTN -stabilized -Hold losartan with renal function -Norvasc 10 mg PO Daily as per cardiology -Consider Coreg low dose HLD -cont lipitor 40 mg PO HS FEN -none -monitor and replete -Diabetic/Na controlled diet DVT Prophylaxis -Hep 5000 units SQ TID Disposition Telemetry, pt without insurance so home medication compliance is complicated Visit type - Emergency Visit Emergency Visit: Yes ED Registration Date: 11/30/18 Care time: The patient presented to the Emergency Department on the above date and was hospitalized for further evaluation of their emergent condition. - New Patient This patient is new to me today: No - Critical Care Critical Care patient: No
[2018-12-03] MEDS ORDERED: LACTULOSE 20 GM/30 ML UDC (FOR ORAL USE ONLY) PO ONE (08:43)
[2018-12-03] MEDS ORDERED: PT OWN MED DRAWER 7, Y5N ONE (09:13)
[2018-12-03] MEDS: ASPIRIN 81 MG CHEWABLE TABLETS PO SCH (09:57)
[2018-12-03] MEDS: amLODIPine BESYLATE 10 MG TABLET (FP) PO SCH (09:57)
[2018-12-03] MEDS: FUROSEMIDE 40 MG/4 ML INJECTABLE VIAL IVPUSH SCH (09:57)
--- NOTE | 2018-12-03 12:04 | PN ---
Progress Note, Physician Chief Complaint: seen and examined on tele No CP or SOB TELE NSR - Current Medication List Current Medications: Active Medications Amlodipine Besylate (Norvasc -) 10 mg PO DAILY [facility] Last Admin: 12/03/18 09:57 Dose: 10 mg Aspirin (Asa -) 81 mg PO DAILY [facility] Last Admin: 12/03/18 09:57 Dose: 81 mg Atorvastatin Calcium (Lipitor -) 40 mg PO HS [facility] Last Admin: 12/02/18 21:28 Dose: 40 mg Docusate Sodium (Colace Liquid -) 200 mg PO DAILY PRN PRN Reason: CONSTIPATION Furosemide (Lasix Injection -) 40 mg IVPUSH DAILY [facility] Last Admin: 12/03/18 09:57 Dose: 40 mg Gabapentin (Neurontin -) 100 mg PO TID [facility] Last Admin: 12/03/18 06:33 Dose: 100 mg Glycerin (Glycerin Suppository Adult -) 1 each RC DAILY PRN PRN Reason: CONSTIPATION Heparin Sodium (Porcine) (Heparin -) 5,000 unit SQ TID [facility] Last Admin: 12/03/18 06:32 Dose: 5,000 unit Piperacillin Sod/Tazobactam (Sod 2.25 gm/ Dextrose) 50 mls @ 100 mls/hr IVPB Q6H-IV [facility]; Protocol Last Admin: 12/03/18 09:56 Dose: 100 mls/hr Insulin Aspart (Novolog Vial Sliding Scale -) 1 vial SQ ACHS [facility]; Protocol Last Admin: 12/03/18 06:33 Dose: 2 units Insulin Detemir (Levemir Vial) 6 units SQ AM [facility] Last Admin: 12/03/18 06:33 Dose: 6 units Mupirocin (Bactroban 2% Ointment -) 1 applic TP DAILY [facility] Last Admin: 12/02/18 09:45 Dose: 1 applic - Objective Vital Signs: Vital Signs Temperature 98.2 F 12/03/18 10:00 Pulse Rate 79 12/03/18 10:00 Respiratory Rate 18 12/03/18 10:00 Blood Pressure 161/69 12/03/18 10:00 O2 Sat by Pulse Oximetry (%) 99 12/03/18 10:00 Constitutional: Yes: Calm Cardiovascular: Yes: Regular Rate and Rhythm Respiratory: Yes: CTA Bilaterally Gastrointestinal: Yes: Soft Edema: No Neurological: Yes: Alert ...Motor Strength: WNL Labs: CBC, BMP 12/03/18 06:00 12/03/18 06:00 Microbiology 11/29/18 23:33 Blood - Peripheral Venous Blood Culture - Preliminary NO GROWTH OBTAINED AFTER 72 HOURS, INCUBATION TO CONTINUE FOR 2 DAYS. 11/29/18 23:33 Blood - Peripheral Venous Blood Culture - Preliminary NO GROWTH OBTAINED AFTER 72 HOURS, INCUBATION TO CONTINUE FOR 2 DAYS. Laboratory Tests 12/03/18 12/03/18 06:00 06:00 WBC 8.0 Hgb 12.2 Plt Count 357 Sodium 135 L Potassium 5.3 H BUN 39 H Creatinine 1.6 H - ....Imaging EKG: Image Reviewed Assessment/Plan Tests echo 02/26/18 borderline low LV function, grade I diastolic dysfunction, mild to mod MR, mild TR, RV nl size and function, mild hypokinesis of inf wall Nuclear pharm stress 03/01/18 sm to mod zone of inferior wall reversible defect from base to apex consistent with mild intensity ischemia. nl LV function, ef 52% rest, 58% after stress cath 02/2018 nonobstructive CAD, nl EF EKG: sinus rhythm, LVH with repol CXR: no acute process echo 11/2018 mod conc LVH, nl LV function, RV nl, tr MR, tr TR, mild pulm HTN, tr AR Assessment and Plan: 58M h/o DM, HTN, HLD, s/p L great toe amputation and partial 2nd toe amputation p/w toe ulcer and bilateral lower extremity swellin. Acute on chronic diastolic HF exacerbation: - BNP >7000 - nl EF with LVH and mild pulm HTN on echo here - ARB held for JASWINDER - vol improving, weight is down. Continue IV lasix. monitor daily weights, Cr, lytes. Look to transition to PO Lasix over weekend 2. CAD, chest pain: - nonobstructive on cath 02/2018 - has had two episodes while here; trop negative, EKG no ischemic changes - unlikely ACS. may be in setting of diastolic CHF exac - continue statin, aspirin 3. Foot ulcer: - manage per podiatry, ID 4. JASWINDER: - stable Cr, monitor with diuresis 5. HTN: - on amlodipine, not well controlled here. Amlodipine titrated yesterday. - holding arb for JASWINDER 6. HLD: - cont statin
--- NOTE | 2018-12-03 13:29 | PN ---
Teaching Attending Note Name of Resident: Juan Diego Morris ATTENDING PHYSICIAN STATEMENT I saw and evaluated the patient. I reviewed the resident's note and discussed the case with the resident. I agree with the resident's findings and plan as documented. SUBJECTIVE: Patient is feeling better with no acute distress. OBJECTIVE: Vital Signs Temperature 98.2 F 12/03/18 10:00 Pulse Rate 79 12/03/18 10:00 Respiratory Rate 18 12/03/18 10:00 Blood Pressure 161/69 12/03/18 10:00 O2 Sat by Pulse Oximetry (%) 99 12/03/18 10:00 GENERAL: The patient is awake, alert, and fully oriented, in no acute distress. HEAD: Normal with no signs of trauma. EYES: PERRL, extraocular movements intact, sclera anicteric, conjunctiva clear. . ENT: Ears normal, oropharynx clear without exudates, moist mucous membranes. NECK: Trachea midline, full range of motion, supple. LUNGS: Breath sounds equal, clear to auscultation bilaterally, no wheezes, no crackles, no accessory muscle use. HEART: Regular rate and rhythm, S1, S2 without murmur, rub or gallop. ABDOMEN: Soft, nontender, nondistended, normoactive bowel sounds, no guarding, no rebound, no hepatosplenomegaly, no masses. EXTREMITIES: 2+ pulses, warm, Left foot open wound, and swelling improving, positive for edema 2 plus. NEUROLOGICAL: Cranial nerves II through XII grossly intact. Normal speech, gait not observed. PSYCH: Normal mood, normal affect. SKIN: Warm, dry, normal turgor, no rashes or lesions noted CBCD WBC 8.0 K/mm3 (4.0-10.0) 12/03/18 06:00 RBC 4.49 M/mm3 (4.00-5.60) 12/03/18 06:00 Hgb 12.2 GM/dL (11.7-16.9) 12/03/18 06:00 Hct 36.3 % (35.4-49) 12/03/18 06:00 MCV 80.9 fl (80-96) 12/03/18 06:00 MCHC 33.5 g/dl (32.0-35.9) 12/03/18 06:00 RDW 13.4 % (11.9-15.9) 12/03/18 06:00 Plt Count 357 K/MM3 (134-434) 12/03/18 06:00 MPV 8.2 fl (7.5-11.1) 12/03/18 06:00 CMP Sodium 135 mmol/L (136-145) L 12/03/18 06:00 Potassium 5.3 mmol/L (3.5-5.1) H 12/03/18 06:00 Chloride 102 mmol/L (98-107) 12/03/18 06:00 Carbon Dioxide 25 mmol/L (21-32) 12/03/18 06:00 Anion Gap 7 MMOL/L (8-16) L 12/03/18 06:00 BUN 39 mg/dL (7-18) H 12/03/18 06:00 Creatinine 1.6 mg/dL (0.55-1.3) H 12/03/18 06:00 Creat Clearance w eGFR 48.24 (>60) 11/30/18 05:30 Random Glucose 157 mg/dL (74-106) H 12/03/18 06:00 Calcium 8.6 mg/dL (8.5-10.1) 12/03/18 06:00 Total Bilirubin 0.3 mg/dL (0.2-1) 12/03/18 06:00 AST 14 U/L (15-37) L 12/03/18 06:00 ALT 13 U/L (13-61) 12/03/18 06:00 Alkaline Phosphatase 100 U/L (45-117) 12/03/18 06:00 Total Protein 6.9 g/dl (6.4-8.2) 12/03/18 06:00 Albumin 2.8 g/dl (3.4-5.0) L 12/03/18 06:00 CARDIAC ENZYMES Creatine Kinase 127 U/L (26-308) 11/29/18 23:33 Troponin I < 0.02 ng/ml (0.00-0.05) 12/01/18 05:30 Current Medications Generic Name Dose Route Start Last Admin Trade Name Freq PRN Reason Stop Dose Admin Amlodipine Besylate 10 mg 12/02/18 10:00 12/03/18 09:57 Norvasc - PO 10 mg DAILY CELESTINO Administration Aspirin 81 mg 12/01/18 10:00 12/03/18 09:57 Asa - PO 81 mg DAILY CELESTINO Administration Atorvastatin Calcium 40 mg 11/30/18 22:00 12/02/18 21:28 Lipitor - PO 40 mg HS CELESTINO Administration Docusate Sodium 200 mg 12/02/18 10:06 Colace Liquid - PO DAILY PRN CONSTIPATION Furosemide 40 mg 11/30/18 10:00 12/03/18 09:57 Lasix Injection - IVPUSH 40 mg DAILY CELESTINO Administration Gabapentin 100 mg 11/30/18 06:00 12/03/18 06:33 Neurontin - PO 100 mg TID CELESTINO Administration Glycerin 1 each 12/02/18 10:06 Glycerin Suppository Adult - RC DAILY PRN CONSTIPATION Heparin Sodium (Porcine) 5,000 unit 11/30/18 02:09 12/03/18 06:32 Heparin - SQ 5,000 unit TID CELESTINO Administration Piperacillin Sod/Tazobactam 50 mls @ 100 mls/hr 12/01/18 09:00 12/03/18 09:56 Sod 2.25 gm/ Dextrose IVPB 100 mls/hr Q6H-IV CELESTINO Administration Protocol Insulin Aspart 1 vial 11/30/18 07:00 12/03/18 12:37 Novolog Vial Sliding Scale - SQ 4 units ACHS CELESTINO Administration Protocol Insulin Detemir 6 units 12/03/18 07:00 12/03/18 06:33 Levemir Vial SQ 6 units AM CELESTINO Administration Mupirocin 1 applic 12/01/18 10:00 12/02/18 09:45 Bactroban 2% Ointment - TP 1 applic DAILY CELESTINO Administration Home Medications Medication Instructions Recorded Enalapril Maleate [Vasotec -] 10 mg PO DAILY 11/30/18 Glipizide [Glipizide ER] 10 mg PO DAILY 11/30/18 RX: Aspirin 81 mg PO DAILY 11/30/18 RX: Furosemide 40 mg PO DAILY 11/30/18 RX: Losartan Potassium 100 mg PO DAILY 11/30/18 ASSESSMENT AND PLAN: 58 y/o man with h/o DM, HTN, OM inL foot s/p 1st and partial second toe amputation, AIN in previous admisison, HLP, Recent cath in 03/13 with non obstructive disease who presented with L foot ulcer with drainage. # Acute left open foot ulcer: On IV Zosyn, given Vanco in ED. Id on the case. MRI of the left foot reviewed , cannot r/o osteo. multiple organism growing on the wound cx. continue IV antibiotic, further Abx per ID. # ARF with worsening creatinine, palak get to see the patient. ArB is on hold due to worsening creatinine # Acute on chronic diastolic CHF exacerbation : echo nl EF with LVH and mild pulm HTN on 03/13 reviewed. On IV lasix continue, weight and I&O ,BNP >7000 # Acute CP: initial EKG reviewed . trop normal . Spoke to Dr. Duncan, will add either BB or Imdur if needed. patient had cardiac w/u done recently with no acute changes . # T2DM : takes glipizide at home. hold and give SSI , A1c 9.1 %, will add Levemir to have better control the sugar level. 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 cont norvasc, can change to losartan when renal failure improved # HLD: cont statin DVT Px : heparin
--- NOTE | 2018-12-03 15:06 | EKG ---
Test Reason : Blood Pressure : / mmHG Vent. Rate : 077 BPM Atrial Rate : 077 BPM P-R Int : 188 ms QRS Dur : 104 ms QT Int : 374 ms P-R-T Axes : 020 -33 138 degrees QTc Int : 423 ms NORMAL SINUS RHYTHM POSSIBLE LEFT ATRIAL ENLARGEMENT LEFT AXIS DEVIATION LEFT VENTRICULAR HYPERTROPHY T WAVE ABNORMALITY, CONSIDER LATERAL ISCHEMIA ABNORMAL ECG WHEN COMPARED WITH ECG OF 30-NOV-2018 10:33, NO SIGNIFICANT CHANGE WAS FOUND Confirmed by MARCELINO MCNAIR MD ([id number]) on 12/03/2018 3:05:57 PM Referred By: Confirmed By:MARCELINO MCNAIR MD
[2018-12-03] MEDS: MUPIROCIN 2% TOPICAL OINTMENT 22 GM TUBE TP SCH (15:52)
--- NOTE | 2018-12-03 16:02 | PN ---
Progress Note (short form) - Note Progress Note: Renal follow up for JASWINDER Pt seen and examined at the bedside awake and alert has no acute complaints denies any sob, cp, abd pain, N/V/D making urine Vital Signs Temperature 98.2 F 12/03/18 15:49 Pulse Rate 76 12/03/18 15:49 Respiratory Rate 24 H 12/03/18 15:49 Blood Pressure 149/89 12/03/18 15:49 O2 Sat by Pulse Oximetry (%) 99 12/03/18 10:00 Intake & Output 11/30/18 12/01/18 12/02/18 12/03/18 23:59 23:59 23:59 23:59 Intake Total 1655 1410 Output Total 780 Balance 1655 630 Weight 87.543 kg 86.636 kg 86.183 kg NAD RRR, No M/R CTA, no rales soft, obese, NT/ND ++ edema in LE no bladder distension CBC, BMP 12/03/18 06:00 12/03/18 06:00 Current Medications Amlodipine Besylate (Norvasc -) 10 mg PO DAILY [facility] Last Admin: 12/03/18 09:57 Dose: 10 mg Aspirin (Asa -) 81 mg PO DAILY [facility] Last Admin: 12/03/18 09:57 Dose: 81 mg Atorvastatin Calcium (Lipitor -) 40 mg PO HS [facility] Last Admin: 12/02/18 21:28 Dose: 40 mg Docusate Sodium (Colace Liquid -) 200 mg PO DAILY PRN PRN Reason: CONSTIPATION Last Admin: 12/03/18 14:58 Dose: 200 mg Furosemide (Lasix Injection -) 40 mg IVPUSH DAILY [facility] Last Admin: 12/03/18 09:57 Dose: 40 mg Gabapentin (Neurontin -) 100 mg PO TID [facility] Last Admin: 12/03/18 14:58 Dose: 100 mg Glycerin (Glycerin Suppository Adult -) 1 each RC DAILY PRN PRN Reason: CONSTIPATION Heparin Sodium (Porcine) (Heparin -) 5,000 unit SQ TID [facility] Last Admin: 12/03/18 14:59 Dose: 5,000 unit Piperacillin Sod/Tazobactam (Sod 2.25 gm/ Dextrose) 50 mls @ 100 mls/hr IVPB Q6H-IV [facility]; Protocol Last Admin: 05/10/19 14:59 Dose: 100 mls/hr Insulin Aspart (Novolog Vial Sliding Scale -) 1 vial SQ ACHS [facility]; Protocol Last Admin: 12/03/18 12:37 Dose: 4 units Insulin Detemir (Levemir Vial) 6 units SQ AM [facility] Last Admin: 12/03/18 06:33 Dose: 6 units Mupirocin (Bactroban 2% Ointment -) 1 applic TP DAILY [facility] Last Admin: 12/03/18 15:52 Dose: 1 applic 58 year old gentleman with hx of DM2, PVD, Osteomylitis of LE who presented wit LE swelling and draning lesion on his left foot. #JASWINDER r/o cardio-renal syndrome vs AIN vs. ATN #LE swelling/CHF/Fluid overload #Draining lesion on foot r/o infection #Anemia #Hyponatremia #Hypertension #Mild Hyperkalemia Urine studies show FeUrea of 42% indicating tubular dysfunction and UPCR of 3. Urine Eosinophils pending Continue IV diuretics for now Renal US w/o signs of obstruction continue Abx as per ID/primary continue amlodipine, goal BP < 140/90 for now Change diet to low potassium thank you Will follow Rufino Rudolph DO
[2018-12-03] MEDS: ATORVASTATIN CA 40 MG TABLET (FP) PO SCH (21:31)
[2018-12-04] MEDS ORDERED: PIPERACILLIN/TAZOBACTAM 2.25 GM VIAL IVPB ONE ×4 (02:46→21:05)
[2018-12-04] MEDS ORDERED: DEXTROSE 5%-WATER - 50 ML IVPB ONE ×4 (02:46→21:05)
[2018-12-04] MEDS: PIPERACILLIN/TAZOB 2.25 GM 2.25 GM in DEXTROSE 5%-WATER - 50 ML IVPB SCH ×4 (02:56→21:13)
[2018-12-04] MEDS: INSULIN (LEVEMIR) 100 UNITS/ML UNITS SQ SCH (06:22)
[2018-12-04] MEDS: GABAPENTIN 100 MG CAPSULE (FP) PO SCH ×3 (06:24→21:13)
[2018-12-04] MEDS: HEPARIN NA (PORCINE) 5,000 UNITS/ML 1ML VIAL SQ SCH ×3 (06:24→21:13)
[2018-12-04] MEDS: INSULIN SLIDING SCALE (NOVOLOG) 1 VIAL SQ SCH ×4 (06:24→21:14)
--- NOTE | 2018-12-04 08:14 | PN ---
Progress Note (short form) - Note Progress Note: Patient is feeling better , no new complains, no shortness of breath. Vital Signs Temperature 98.4 F 12/04/18 05:28 Pulse Rate 79 12/04/18 05:28 Respiratory Rate 18 12/04/18 05:28 Blood Pressure 105/85 12/04/18 05:28 O2 Sat by Pulse Oximetry (%) 98 12/03/18 21:00 GENERAL: The patient is awake, alert, and fully oriented, in no acute distress. HEAD: Normal with no signs of trauma. EYES: PERRL, extraocular movements intact, sclera anicteric, conjunctiva clear. . ENT: Ears normal, oropharynx clear without exudates, moist mucous membranes. NECK: Trachea midline, full range of motion, supple. LUNGS: Breath sounds equal, clear to auscultation bilaterally, no wheezes, no crackles, no accessory muscle use. HEART: Regular rate and rhythm, S1, S2 without murmur, rub or gallop. ABDOMEN: Soft, nontender, nondistended, normoactive bowel sounds, no guarding, no rebound, no hepatosplenomegaly, no masses. EXTREMITIES: 2+ pulses, warm, Left foot open wound, and swelling improving, positive for edema 2 plus. NEUROLOGICAL: Cranial nerves II through XII grossly intact. Normal speech, gait not observed. PSYCH: Normal mood, normal affect. SKIN: Warm, dry, normal turgor, no rashes or lesions noted CBCD WBC 8.0 K/mm3 (4.0-10.0) 12/03/18 06:00 RBC 4.49 M/mm3 (4.00-5.60) 12/03/18 06:00 Hgb 12.2 GM/dL (11.7-16.9) 12/03/18 06:00 Hct 36.3 % (35.4-49) 12/03/18 06:00 MCV 80.9 fl (80-96) 12/03/18 06:00 MCHC 33.5 g/dl (32.0-35.9) 12/03/18 06:00 RDW 13.4 % (11.9-15.9) 12/03/18 06:00 Plt Count 357 K/MM3 (134-434) 12/03/18 06:00 MPV 8.2 fl (7.5-11.1) 12/03/18 06:00 CMP Sodium 135 mmol/L (136-145) L 12/03/18 06:00 Potassium 5.3 mmol/L (3.5-5.1) H 12/03/18 06:00 Chloride 102 mmol/L (98-107) 12/03/18 06:00 Carbon Dioxide 25 mmol/L (21-32) 12/03/18 06:00 Anion Gap 7 MMOL/L (8-16) L 12/03/18 06:00 BUN 39 mg/dL (7-18) H 12/03/18 06:00 Creatinine 1.6 mg/dL (0.55-1.3) H 12/03/18 06:00 Creat Clearance w eGFR 48.24 (>60) 11/30/18 05:30 Random Glucose 157 mg/dL (74-106) H 12/03/18 06:00 Calcium 8.6 mg/dL (8.5-10.1) 12/03/18 06:00 Total Bilirubin 0.3 mg/dL (0.2-1) 12/03/18 06:00 AST 14 U/L (15-37) L 12/03/18 06:00 ALT 13 U/L (13-61) 12/03/18 06:00 Alkaline Phosphatase 100 U/L (45-117) 12/03/18 06:00 Total Protein 6.9 g/dl (6.4-8.2) 12/03/18 06:00 Albumin 2.8 g/dl (3.4-5.0) L 12/03/18 06:00 CARDIAC ENZYMES Creatine Kinase 127 U/L (26-308) 11/29/18 23:33 Troponin I < 0.02 ng/ml (0.00-0.05) 12/01/18 05:30 Current Medications Generic Name Dose Route Start Last Admin Trade Name Rickey PRN Reason Stop Dose Admin Amlodipine Besylate 10 mg 12/02/18 10:00 12/03/18 09:57 Norvasc - PO 10 mg DAILY [facility] Administration Aspirin 81 mg 12/01/18 10:00 12/03/18 09:57 Asa - PO 81 mg DAILY [facility] Administration Atorvastatin Calcium 40 mg 11/30/18 22:00 12/03/18 21:31 Lipitor - PO 40 mg HS [facility] Administration Docusate Sodium 200 mg 12/02/18 10:06 12/03/18 14:58 Colace Liquid - PO 200 mg DAILY PRN Administration CONSTIPATION Furosemide 40 mg 11/30/18 10:00 12/03/18 09:57 Lasix Injection - IVPUSH 40 mg DAILY [facility] Administration Gabapentin 100 mg 11/30/18 06:00 12/04/18 06:24 Neurontin - PO 100 mg TID [facility] Administration Glycerin 1 each 12/02/18 10:06 Glycerin Suppository Adult - RC DAILY PRN CONSTIPATION Heparin Sodium (Porcine) 5,000 unit 11/30/18 02:09 12/04/18 06:24 Heparin - SQ 5,000 unit TID [facility] Administration Piperacillin Sod/Tazobactam 50 mls @ 100 mls/hr 12/01/18 09:00 12/04/18 02:56 Sod 2.25 gm/ Dextrose IVPB 100 mls/hr Q6H-IV [facility] Administration Protocol Insulin Aspart 1 vial 11/30/18 07:00 12/04/18 06:24 Novolog Vial Sliding Scale - SQ 4 units ACHS [facility] Administration Protocol Insulin Detemir 6 units 12/03/18 07:00 12/04/18 06:22 Levemir Vial SQ 6 units AM [facility] Administration Mupirocin 1 applic 12/01/18 10:00 12/03/18 15:52 Bactroban 2% Ointment - TP 1 applic DAILY [facility] Administration Home Medications Medication Instructions Recorded Aspirin 81 mg PO DAILY 11/30/18 Enalapril Maleate [Vasotec -] 10 mg PO DAILY 11/30/18 Furosemide 40 mg PO DAILY 11/30/18 Glipizide [Glipizide ER] 10 mg PO DAILY 11/30/18 Losartan Potassium 100 mg PO DAILY 11/30/18 Clinical indication: Evaluate for osteomyelitis second toe. Description: Sagittal,, axial, and coronal T1 and T2 STIR images were obtained and followed by post gadolinium sagittal, axial, and coronal fat-suppressed T1-weighted images after the intravenous demonstration of 20 cc of ProHance. This exam was correlated with the previous x-rays of the left foot. As seen on the previous x- rays there has been resection of the first metatarsal head and phalanges. There has been amputation of the middle and distal phalanges of the second toe and the distal aspect of the proximal phalanx. The resection of the second toe middle and distal phalanges and distal proximal phalanx is new compared to previous x-rays of the foot of 12/24/2017. There is marked dense subcutaneous soft tissue edema of the foot with fluid tracking in the deep subcutaneous soft tissues. No definite open wound is seen on the MRI. There is irregularity of the distal first metatarsal with the lateral sesamoid identified. There is a scar extending from the dorsal medial aspect of the foot to the amputation site. There is mild soft tissue edema of the distal plantar aspect at the level of the residual proximal phalanx of the second toe. There is a tiny focus of bright T2 signal and mild enhancement of the distal residual proximal phalanx which is nonspecific however early osteomyelitis cannot be excluded. Impression: 1. Status post resection of the first metatarsal head and phalanges. 2. Amputation of the middle and distal phalanges of the second toe and the distal aspect of the proximal phalanx. 3. Marked dense subcutaneous soft tissue edema of the foot. 5. Tiny focus of bright T2 signal and enhancement of the distal residual proximal phalanx of the second toe which is nonspecific however early osteomyelitis cannot be excluded. 6. Scar of the dorsal medial aspect of the foot at the amputation site of the first toe. 7. Irregularity of the residual distal first metatarsal which is likely postoperative with mild reactive productive change. 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 # Acute left open foot ulcer: On IV Zosyn, given Vanco in ED. Id on the case. MRI of the left foot reviewed , cannot r/o osteo. multiple organism growing on the wound cx. continue IV antibiotic, further Abx treatment as per ID. # ARF with worsening creatinine, will get to see the patient. ArB is on hold due to worsening creatinine # Acute on chronic diastolic CHF exacerbation : echo nl EF with LVH and mild pulm HTN on 03/13 reviewed. On IV lasix continue, weight and I&O , BNP >7000 # Acute CP: initial EKG reviewed . trop normal . As per Dr. Duncan, if needed to BB or Imdur if needed. patient had cardiac w/u done recently with no acute changes . # T2DM : takes glipizide at home. hold and give SSI , A1c 9.1 %, will add Levemir to have better control the sugar level. 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 cont norvasc, can change to losartan when renal failure improved # HLD: cont statin DVT Px : heparin Strongoilides Antibody was negative Visit type - Emergency Visit Emergency Visit: Yes ED Registration Date: 11/30/18 Care time: The patient presented to the Emergency Department on the above date and was hospitalized for further evaluation of their emergent condition. - New Patient This patient is new to me today: No - Critical Care Critical Care patient: No - Discharge Referral Referred to [facility] No
[2018-12-04] MEDS: amLODIPine BESYLATE 10 MG TABLET (FP) PO SCH (09:34)
[2018-12-04] MEDS: FUROSEMIDE 40 MG/4 ML INJECTABLE VIAL IVPUSH SCH (09:34)
[2018-12-04] MEDS: ASPIRIN 81 MG CHEWABLE TABLETS PO SCH (09:34)
[2018-12-04] MEDS: MUPIROCIN 2% TOPICAL OINTMENT 22 GM TUBE TP SCH (09:36)
--- NOTE | 2018-12-04 10:24 | PN ---
Progress Note (short form) - Note Progress Note: s:no sob cp palps dizzy, le edema better tele: sinus Vital Signs Period Temp Pulse Resp BP Sys/Garner Pulse Ox Last 24 Hr 98 F-98.4 F 76-88 18-24 105-163/85-94 98 Constitutional: Yes: Well Nourished, No Distress, Calm Eyes: Yes: Conjunctiva Clear, EOM Intact HENT: Yes: Atraumatic, Normocephalic Neck: Yes: Supple, no JVD Respiratory: Yes: Regular, CTA Bilaterally Gastrointestinal: Yes: Normal Bowel Sounds, Soft Cardiovascular: Yes: Regular Rate and Rhythm Heart Sounds: Yes: S1, S2 Edema: 1+ pitting edema bilaterally Peripheral Pulses: 2+ Left Doralis Pedis, 2+ Right Dorsalis Pedis Neurological: Yes: Alert, Oriented Psychiatric: Yes: Alert, Oriented Current Medications Generic Name Dose Route Start Last Admin Trade Name Freq PRN Reason Stop Dose Admin Amlodipine Besylate 10 mg 12/02/18 10:00 12/04/18 09:34 Norvasc - PO 10 mg DAILY [facility] Administration Aspirin 81 mg 12/01/18 10:00 12/04/18 09:34 Asa - PO 81 mg DAILY [facility] Administration Atorvastatin Calcium 40 mg 11/30/18 22:00 12/03/18 21:31 Lipitor - PO 40 mg HS [facility] Administration Docusate Sodium 200 mg 12/02/18 10:06 12/03/18 14:58 Colace Liquid - PO 200 mg DAILY PRN Administration CONSTIPATION Furosemide 40 mg 11/30/18 10:00 12/04/18 09:34 Lasix Injection - IVPUSH 40 mg DAILY [facility] Administration Gabapentin 100 mg 11/30/18 06:00 12/04/18 06:24 Neurontin - PO 100 mg TID [facility] Administration Glycerin 1 each 12/02/18 10:06 Glycerin Suppository Adult - RC DAILY PRN CONSTIPATION Heparin Sodium (Porcine) 5,000 unit 11/30/18 02:09 12/04/18 06:24 Heparin - SQ 5,000 unit TID [facility] Administration Piperacillin Sod/Tazobactam 50 mls @ 100 mls/hr 12/01/18 09:00 12/04/18 09:34 Sod 2.25 gm/ Dextrose IVPB 100 mls/hr Q6H-IV [facility] Administration Protocol Insulin Aspart 1 vial 11/30/18 07:00 12/04/18 06:24 Novolog Vial Sliding Scale - SQ 4 units ACHS [facility] Administration Protocol Insulin Detemir 6 units 12/03/18 07:00 12/04/18 06:22 Levemir Vial SQ 6 units AM [facility] Administration Metoprolol Succinate 25 mg 12/04/18 10:30 Toprol Xl - PO DAILY [facility] Mupirocin 1 applic 12/01/18 10:00 12/04/18 09:36 Bactroban 2% Ointment - TP 1 applic DAILY [facility] Administration CBC, BMP 12/03/18 06:00 12/03/18 06:00 Assessment/Plan echo 02/26/18 borderline low LV function, grade I diastolic dysfunction, mild to mod MR, mild TR, RV nl size and function, mild hypokinesis of inf wall Nuclear pharm stress 03/01/18 sm to mod zone of inferior wall reversible defect from base to apex consistent with mild intensity ischemia. nl LV function, ef 52% rest, 58% after stress cath 02/2018 nonobstructive CAD, nl EF EKG: sinus rhythm, LVH with repol CXR: no acute process echo 11/2018 mod conc LVH, nl LV function, RV nl, tr MR, tr TR, mild pulm HTN, tr AR 58M h/o DM, HTN, HLD, s/p L great toe amputation and partial 2nd toe amputation p/w toe ulcer and bilateral lower extremity swelling Acute on chronic diastolic HF exacerbation - BNP >7000 - nl EF with LVH and mild pulm HTN on echo here - ARB held for JASWINDER - vol improving, continue IV lasix. monitor daily weights, Cr, lytes CAD, chest pain - nonobstructive on cath 02/2018 - has had two episodes while here; trop negative, EKG no ischemic changes - unlikely ACS. may be in setting of diastolic CHF exac - continue statin, aspirin foot ulcer - manage per podiatry, ID JASWINDER - stable Cr, monitor with diuresis HTN - on amlodipine, but still elevated bp, will start toprol 25 qd - holding arb for JASWINDER HLD - cont statin
[2018-12-04] MEDS: metoPROLOL SUCCINATE 25 MG TAB.SR.24H (FP) PO SCH (12:06)
--- NOTE | 2018-12-04 18:54 | PN ---
Progress Note (short form) - Note Progress Note: covering dr levin dm diabetic foot/mrsa s/p fluid overload s/p lilli baseline s creat 1.3 Current Medications Amlodipine Besylate (Norvasc -) 10 mg PO DAILY [facility] Last Admin: 12/04/18 09:34 Dose: 10 mg Aspirin (Asa -) 81 mg PO DAILY [facility] Last Admin: 12/04/18 09:34 Dose: 81 mg Atorvastatin Calcium (Lipitor -) 40 mg PO HS [facility] Last Admin: 12/03/18 21:31 Dose: 40 mg Docusate Sodium (Colace Liquid -) 200 mg PO DAILY PRN PRN Reason: CONSTIPATION Last Admin: 12/03/18 14:58 Dose: 200 mg Furosemide (Lasix Injection -) 40 mg IVPUSH DAILY [facility] Last Admin: 12/04/18 09:34 Dose: 40 mg Gabapentin (Neurontin -) 100 mg PO TID [facility] Last Admin: 12/04/18 13:05 Dose: 100 mg Glycerin (Glycerin Suppository Adult -) 1 each RC DAILY PRN PRN Reason: CONSTIPATION Heparin Sodium (Porcine) (Heparin -) 5,000 unit SQ TID [facility] Last Admin: 12/04/18 13:05 Dose: 5,000 unit Piperacillin Sod/Tazobactam (Sod 2.25 gm/ Dextrose) 50 mls @ 100 mls/hr IVPB Q6H-IV [facility]; Protocol Last Admin: 12/04/18 16:15 Dose: 100 mls/hr Insulin Aspart (Novolog Vial Sliding Scale -) 1 vial SQ ACHS [facility]; Protocol Last Admin: 12/04/18 17:30 Dose: 6 units Insulin Detemir (Levemir Vial) 6 units SQ AM [facility] Last Admin: 12/04/18 06:22 Dose: 6 units Metoprolol Succinate (Toprol Xl -) 25 mg PO DAILY [facility] Last Admin: 12/04/18 12:06 Dose: 25 mg Mupirocin (Bactroban 2% Ointment -) 1 applic TP DAILY [facility] Last Admin: 12/04/18 09:36 Dose: 1 applic Last Vital Signs Temp Pulse Resp BP Pulse Ox 97.9 F 70 18 153/90 98 12/04/18 18:01 12/04/18 18:01 12/04/18 18:01 12/04/18 18:01 12/04/18 10:00 lying flat no sob Lungs clear Heart reg Abd soft nontender ext no edema CBC, BMP 12/03/18 06:00 12/03/18 06:00 renal function beterr but not yet at baseline
[2018-12-04] MEDS: ATORVASTATIN CA 40 MG TABLET (FP) PO SCH (21:14)
[2018-12-05] MEDS ORDERED: DEXTROSE 5%-WATER - 50 ML IVPB ONE ×4 (02:36→22:31)
[2018-12-05] MEDS ORDERED: PIPERACILLIN/TAZOBACTAM 2.25 GM VIAL IVPB ONE ×4 (02:36→22:31)
[2018-12-05] MEDS: PIPERACILLIN/TAZOB 2.25 GM 2.25 GM in DEXTROSE 5%-WATER - 50 ML IVPB SCH ×4 (03:08→22:47)
[2018-12-05] MEDS: INSULIN SLIDING SCALE (NOVOLOG) 1 VIAL SQ SCH ×4 (06:15→22:52)
[2018-12-05] MEDS: HEPARIN NA (PORCINE) 5,000 UNITS/ML 1ML VIAL SQ SCH ×3 (06:44→22:51)
[2018-12-05] MEDS: GABAPENTIN 100 MG CAPSULE (FP) PO SCH ×3 (06:45→22:51)
[2018-12-05] MEDS: INSULIN (LEVEMIR) 100 UNITS/ML UNITS SQ SCH (06:45)
[2018-12-05] MEDS: amLODIPine BESYLATE 10 MG TABLET (FP) PO SCH ×2 (06:46→09:47)
[2018-12-05] MEDS: ASPIRIN 81 MG CHEWABLE TABLETS PO SCH (09:46)
[2018-12-05] MEDS: FUROSEMIDE 40 MG/4 ML INJECTABLE VIAL IVPUSH SCH (09:47)
--- NOTE | 2018-12-05 11:42 | PN ---
Progress Note (short form) - Note Progress Note: s:no sob cp palps dizzy, le edema better tele: sinus Vital Signs Period Temp Pulse Resp BP Sys/Garner Pulse Ox Last 24 Hr 97.5 F-98.6 F 70-82 16-18 108-175/73-96 97-97 Constitutional: Yes: Well Nourished, No Distress, Calm Eyes: Yes: Conjunctiva Clear, EOM Intact HENT: Yes: Atraumatic, Normocephalic Neck: Yes: Supple, no JVD Respiratory: Yes: Regular, CTA Bilaterally Gastrointestinal: Yes: Normal Bowel Sounds, Soft Cardiovascular: Yes: Regular Rate and Rhythm Heart Sounds: Yes: S1, S2 Edema: trace le edema bilaterally Peripheral Pulses: 2+ Left Doralis Pedis, 2+ Right Dorsalis Pedis Neurological: Yes: Alert, Oriented Psychiatric: Yes: Alert, Oriented Current Medications Generic Name Dose Route Start Last Admin Trade Name Freq PRN Reason Stop Dose Admin Amlodipine Besylate 10 mg 12/02/18 10:00 12/05/18 09:47 Norvasc - PO Not Given DAILY [facility] Aspirin 81 mg 12/01/18 10:00 12/05/18 09:46 Asa - PO 81 mg DAILY [facility] Administration Atorvastatin Calcium 40 mg 11/30/18 22:00 12/04/18 21:14 Lipitor - PO 40 mg HS [facility] Administration Docusate Sodium 200 mg 12/02/18 10:06 12/03/18 14:58 Colace Liquid - PO 200 mg DAILY PRN Administration CONSTIPATION Furosemide 40 mg 11/30/18 10:00 12/05/18 09:47 Lasix Injection - IVPUSH 12/05/18 14:00 40 mg DAILY [facility] Administration Furosemide 40 mg 12/06/18 10:00 Lasix - PO DAILY [facility] Gabapentin 100 mg 11/30/18 06:00 12/05/18 06:45 Neurontin - PO 100 mg TID [facility] Administration Glycerin 1 each 12/02/18 10:06 Glycerin Suppository Adult - RC DAILY PRN CONSTIPATION Heparin Sodium (Porcine) 5,000 unit 11/30/18 02:09 12/05/18 06:44 Heparin - SQ 5,000 unit TID [facility] Administration Piperacillin Sod/Tazobactam 50 mls @ 100 mls/hr 12/01/18 09:00 12/05/18 09:46 Sod 2.25 gm/ Dextrose IVPB 100 mls/hr Q6H-IV [facility] Administration Protocol Insulin Aspart 1 vial 11/30/18 07:00 12/05/18 06:15 Novolog Vial Sliding Scale - SQ Not Given ACHS [facility] Protocol Insulin Detemir 6 units 12/03/18 07:00 12/05/18 06:45 Levemir Vial SQ 6 units AM [facility] Administration Metoprolol Succinate 25 mg 12/04/18 10:30 12/04/18 12:06 Toprol Xl - PO 25 mg DAILY [facility] Administration Mupirocin 1 applic 12/01/18 10:00 12/04/18 09:36 Bactroban 2% Ointment - TP 1 applic DAILY [facility] Administration CBC, BMP 12/03/18 06:00 12/03/18 06:00 Assessment/Plan echo 02/26/18 borderline low LV function, grade I diastolic dysfunction, mild to mod MR, mild TR, RV nl size and function, mild hypokinesis of inf wall Nuclear pharm stress 03/01/18 sm to mod zone of inferior wall reversible defect from base to apex consistent with mild intensity ischemia. nl LV function, ef 52% rest, 58% after stress cath 02/2018 nonobstructive CAD, nl EF EKG: sinus rhythm, LVH with repol CXR: no acute process echo 11/2018 mod conc LVH, nl LV function, RV nl, tr MR, tr TR, mild pulm HTN, tr AR 58M h/o DM, HTN, HLD, s/p L great toe amputation and partial 2nd toe amputation p/w toe ulcer and bilateral lower extremity swelling Acute on chronic diastolic HF exacerbation - BNP >7000 - nl EF with LVH and mild pulm HTN on echo here - ARB held for JASWINDER - vol improved with iv lasix, will change to po now CAD, chest pain - nonobstructive on cath 02/2018 - has had two episodes while here; trop negative, EKG no ischemic changes - unlikely ACS. may be in setting of diastolic CHF exac - continue statin, aspirin foot ulcer - manage per podiatry, ID JASWINDER - stable Cr, monitor with diuresis HTN - on amlodipine, but still elevated bp, will start toprol 25 qd - holding arb for JASWINDER HLD - cont statin
[2018-12-05] MEDS: metoPROLOL SUCCINATE 25 MG TAB.SR.24H (FP) PO SCH (11:44)
[2018-12-05] MEDS: MUPIROCIN 2% TOPICAL OINTMENT 22 GM TUBE TP SCH (11:46)
--- NOTE | 2018-12-05 12:51 | PN ---
Physical Exam: SUBJECTIVE: Patient seen and examined sitting comfortably in bed denies shortness of breath feels good states swelling in legs has decreased b/l lower leg has wrinkles. Left leg has some edema + OBJECTIVE: Vital Signs Period Temp Pulse Resp BP Sys/Garner Pulse Ox Last 24 Hr 97.5 F-98.7 F 70-82 16-18 108-175/73-96 97-97 GEN: alert and oriented, no acute distress HEENT: Moist mucus membranes, HEART: Regular rate and rhythm, no murmurs noted LUNGS: CTA b/l, no wheezes noted, no crackles ABDOMEN: Soft, nontender, normoactive bowel sounds EXTREMITIES 1 + edema on left leg, skin dry and wrinkled. dressing present on left leg Laboratory Results - last 24 hr 12/04/18 12/04/18 12/05/18 16:22 20:49 06:02 POC Glucometer 267 132 145 12/05/18 11:42 POC Glucometer 278 Active Medications Generic Name Dose Route Start Last Admin Trade Name Freq PRN Reason Stop Dose Admin Amlodipine Besylate 10 mg 12/02/18 10:00 12/05/18 09:47 Norvasc - PO Not Given DAILY [facility] Aspirin 81 mg 12/01/18 10:00 12/05/18 09:46 Asa - PO 81 mg DAILY [facility] Administration Atorvastatin Calcium 40 mg 11/30/18 22:00 12/04/18 21:14 Lipitor - PO 40 mg HS [facility] Administration Docusate Sodium 200 mg 12/02/18 10:06 12/03/18 14:58 Colace Liquid - PO 200 mg DAILY PRN Administration CONSTIPATION Furosemide 40 mg 11/30/18 10:00 12/05/18 09:47 Lasix Injection - IVPUSH 12/05/18 14:00 40 mg DAILY [facility] Administration Furosemide 40 mg 12/06/18 10:00 Lasix - PO DAILY [facility] Gabapentin 100 mg 11/30/18 06:00 12/05/18 06:45 Neurontin - PO 100 mg TID [facility] Administration Glycerin 1 each 12/02/18 10:06 Glycerin Suppository Adult - RC DAILY PRN CONSTIPATION Heparin Sodium (Porcine) 5,000 unit 11/30/18 02:09 12/05/18 06:44 Heparin - SQ 5,000 unit TID [facility] Administration Piperacillin Sod/Tazobactam 50 mls @ 100 mls/hr 12/01/18 09:00 12/05/18 09:46 Sod 2.25 gm/ Dextrose IVPB 100 mls/hr Q6H-IV [facility] Administration Protocol Insulin Aspart 1 vial 11/30/18 07:00 12/05/18 11:44 Novolog Vial Sliding Scale - SQ 6 units ACHS [facility] Administration Protocol Insulin Detemir 6 units 12/03/18 07:00 12/05/18 06:45 Levemir Vial SQ 6 units AM [facility] Administration Metoprolol Succinate 25 mg 12/04/18 10:30 12/05/18 11:44 Toprol Xl - PO 25 mg DAILY [facility] Administration Mupirocin 1 applic 12/01/18 10:00 12/05/18 11:46 Bactroban 2% Ointment - TP 1 applic DAILY [facility] Administration ASSESSMENT/PLAN: Clinical indication: Evaluate for osteomyelitis second toe. Description: Sagittal,, axial, and coronal T1 and T2 STIR images were obtained and followed by post gadolinium sagittal, axial, and coronal fat-suppressed T1- weighted images after the intravenous demonstration of 20 cc of ProHance. This exam was correlated with the previous x-rays of the left foot. As seen on the previous x-rays there has been resection of the first metatarsal head and phalanges. There has been amputation of the middle and distal phalanges of the second toe and the distal aspect of the proximal phalanx. The resection of the second toe middle and distal phalanges and distal proximal phalanx is new compared to previous x-rays of the foot of 12/24/2017. There is marked dense subcutaneous soft tissue edema of the foot with fluid tracking in the deep subcutaneous soft tissues. No definite open wound is seen on the MRI. There is irregularity of the distal first metatarsal with the lateral sesamoid identified. There is a scar extending from the dorsal medial aspect of the foot to the amputation site. There is mild soft tissue edema of the distal plantar aspect at the level of the residual proximal phalanx of the second toe. There is a tiny focus of bright T2 signal and mild enhancement of the distal residual proximal phalanx which is nonspecific however early osteomyelitis cannot be excluded. Impression: 1. Status post resection of the first metatarsal head and phalanges. 2. Amputation of the middle and distal phalanges of the second toe and the distal aspect of the proximal phalanx. 3. Marked dense subcutaneous soft tissue edema of the foot. 5. Tiny focus of bright T2 signal and enhancement of the distal residual proximal phalanx of the second toe which is nonspecific however early osteomyelitis cannot be excluded. 6. Scar of the dorsal medial aspect of the foot at the amputation site of the first toe. 7. Irregularity of the residual distal first metatarsal which is likely postoperative with mild reactive productive change. 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 # Acute left open foot ulcer: On IV antibiotics as per id MRI of the left foot reviewed , cannot r/o osteo. multiple organism growing on the wound cx. continue IV antibiotic, further Abx treatment as per ID. # Jason on ckd arb on hold avoid nephrotoxic drugs dr richardson on case # Acute on chronic diastolic CHF exacerbation : echo nl EF with LVH and mild pulm HTN on 03/13 reviewed. swelling in legs decreased. lungs clear nurse requested to check daily weight low salt diet IV lasix changed to po lasxi . # T2DM : takes glipizide at home. hold and give SSI , A1c 9.1 %, will add Levemir to have better control the sugar level. 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 cont norvasc, can change to losartan when renal failure improved # HLD: cont statin DVT Px : heparin dispo - tele Visit type - Emergency Visit Emergency Visit: Yes ED Registration Date: 11/30/18 Care time: The patient presented to the Emergency Department on the above date and was hospitalized for further evaluation of their emergent condition. - New Patient This patient is new to me today: Yes Date on this admission: 12/05/18 - Critical Care Critical Care patient: No
--- NOTE | 2018-12-05 14:33 | PN ---
Progress Note (short form) - Note Progress Note: covering dr levin dm diabetic foot/mrsa s/p fluid overload s/p lilli baseline s creat 1.3 Current Medications Amlodipine Besylate (Norvasc -) 10 mg PO DAILY [facility] Last Admin: 12/05/18 09:47 Dose: Not Given Aspirin (Asa -) 81 mg PO DAILY [facility] Last Admin: 12/05/18 09:46 Dose: 81 mg Atorvastatin Calcium (Lipitor -) 40 mg PO HS [facility] Last Admin: 12/04/18 21:14 Dose: 40 mg Docusate Sodium (Colace Liquid -) 200 mg PO DAILY PRN PRN Reason: CONSTIPATION Last Admin: 12/03/18 14:58 Dose: 200 mg Furosemide (Lasix -) 40 mg PO DAILY [facility] Gabapentin (Neurontin -) 100 mg PO TID [facility] Last Admin: 12/05/18 14:15 Dose: 100 mg Glycerin (Glycerin Suppository Adult -) 1 each RC DAILY PRN PRN Reason: CONSTIPATION Heparin Sodium (Porcine) (Heparin -) 5,000 unit SQ TID [facility] Last Admin: 12/05/18 14:15 Dose: 5,000 unit Piperacillin Sod/Tazobactam (Sod 2.25 gm/ Dextrose) 50 mls @ 100 mls/hr IVPB Q6H-IV [facility]; Protocol Last Admin: 12/05/18 14:16 Dose: 100 mls/hr Insulin Aspart (Novolog Vial Sliding Scale -) 1 vial SQ ACHS [facility]; Protocol Last Admin: 12/05/18 11:44 Dose: 6 units Insulin Detemir (Levemir Vial) 6 units SQ AM [facility] Last Admin: 12/05/18 06:45 Dose: 6 units Metoprolol Succinate (Toprol Xl -) 25 mg PO DAILY [facility] Last Admin: 12/05/18 11:44 Dose: 25 mg Mupirocin (Bactroban 2% Ointment -) 1 applic TP DAILY [facility] Last Admin: 12/05/18 11:46 Dose: 1 applic Last Vital Signs Temp Pulse Resp BP Pulse Ox 97.9 F 70 14 123/78 97 12/05/18 13:27 12/05/18 13:27 12/05/18 13:27 12/05/18 13:27 12/05/18 08:09 lying flat no sob Lungs clear Heart reg Abd soft nontender ext no edema CBC, BMP 12/03/18 06:00 12/03/18 06:00 IMP renal function beterr but not yet at baseline no labs today F/u labs ordered for tomorrow
--- NOTE | 2018-12-05 17:06 | PN ---
Teaching Attending Note Name of Resident: Sinan Yan ATTENDING PHYSICIAN STATEMENT I saw and evaluated the patient. I reviewed the resident's note and discussed the case with the resident. I agree with the resident's findings and plan as documented. SUBJECTIVE: Patient is feeling better, no fever or chills. OBJECTIVE: Vital Signs Temperature 97.9 F 12/05/18 13:27 Pulse Rate 70 12/05/18 13:27 Respiratory Rate 14 12/05/18 13:27 Blood Pressure 123/78 12/05/18 13:27 O2 Sat by Pulse Oximetry (%) 97 12/05/18 08:09 GENERAL: The patient is awake, alert, and fully oriented, in no acute distress. HEAD: Normal with no signs of trauma. EYES: PERRL, extraocular movements intact, sclera anicteric, conjunctiva clear. . ENT: Ears normal, oropharynx clear without exudates, moist mucous membranes. NECK: Trachea midline, full range of motion, supple. LUNGS: Breath sounds equal, clear to auscultation bilaterally, no wheezes, no crackles, no accessory muscle use. HEART: Regular rate and rhythm, S1, S2 without murmur, rub or gallop. ABDOMEN: Soft, nontender, nondistended, normoactive bowel sounds, no guarding, no rebound, no hepatosplenomegaly, no masses. EXTREMITIES: 2+ pulses, warm, Left foot open wound, and swelling improving, positive for edema 1 plus. NEUROLOGICAL: Cranial nerves II through XII grossly intact. Normal speech, gait not observed. PSYCH: Normal mood, normal affect. SKIN: Warm, dry, normal turgor, no rashes or lesions noted CBCD WBC 8.0 K/mm3 (4.0-10.0) 12/03/18 06:00 RBC 4.49 M/mm3 (4.00-5.60) 12/03/18 06:00 Hgb 12.2 GM/dL (11.7-16.9) 12/03/18 06:00 Hct 36.3 % (35.4-49) 12/03/18 06:00 MCV 80.9 fl (80-96) 12/03/18 06:00 MCHC 33.5 g/dl (32.0-35.9) 12/03/18 06:00 RDW 13.4 % (11.9-15.9) 12/03/18 06:00 Plt Count 357 K/MM3 (134-434) 12/03/18 06:00 MPV 8.2 fl (7.5-11.1) 12/03/18 06:00 CMP Sodium 135 mmol/L (136-145) L 12/03/18 06:00 Potassium 5.3 mmol/L (3.5-5.1) H 12/03/18 06:00 Chloride 102 mmol/L (98-107) 12/03/18 06:00 Carbon Dioxide 25 mmol/L (21-32) 12/03/18 06:00 Anion Gap 7 MMOL/L (8-16) L 12/03/18 06:00 BUN 39 mg/dL (7-18) H 12/03/18 06:00 Creatinine 1.6 mg/dL (0.55-1.3) H 12/03/18 06:00 Creat Clearance w eGFR 48.24 (>60) 11/30/18 05:30 Random Glucose 157 mg/dL (74-106) H 12/03/18 06:00 Calcium 8.6 mg/dL (8.5-10.1) 12/03/18 06:00 Total Bilirubin 0.3 mg/dL (0.2-1) 12/03/18 06:00 AST 14 U/L (15-37) L 12/03/18 06:00 ALT 13 U/L (13-61) 12/03/18 06:00 Alkaline Phosphatase 100 U/L (45-117) 12/03/18 06:00 Total Protein 6.9 g/dl (6.4-8.2) 12/03/18 06:00 Albumin 2.8 g/dl (3.4-5.0) L 12/03/18 06:00 CARDIAC ENZYMES Creatine Kinase 127 U/L (26-308) 11/29/18 23:33 Troponin I < 0.02 ng/ml (0.00-0.05) 12/01/18 05:30 Current Medications Generic Name Dose Route Start Last Admin Trade Name Freq PRN Reason Stop Dose Admin Amlodipine Besylate 10 mg 12/02/18 10:00 12/05/18 09:47 Norvasc - PO Not Given DAILY [facility] Aspirin 81 mg 12/01/18 10:00 12/05/18 09:46 Asa - PO 81 mg DAILY [facility] Administration Atorvastatin Calcium 40 mg 11/30/18 22:00 12/04/18 21:14 Lipitor - PO 40 mg HS [facility] Administration Docusate Sodium 200 mg 12/02/18 10:06 12/03/18 14:58 Colace Liquid - PO 200 mg DAILY PRN Administration CONSTIPATION Furosemide 40 mg 12/06/18 10:00 Lasix - PO DAILY [facility] Gabapentin 100 mg 11/30/18 06:00 12/05/18 14:15 Neurontin - PO 100 mg TID [facility] Administration Glycerin 1 each 12/02/18 10:06 Glycerin Suppository Adult - RC DAILY PRN CONSTIPATION Heparin Sodium (Porcine) 5,000 unit 11/30/18 02:09 12/05/18 14:15 Heparin - SQ 5,000 unit TID [facility] Administration Piperacillin Sod/Tazobactam 50 mls @ 100 mls/hr 12/01/18 09:00 12/05/18 14:16 Sod 2.25 gm/ Dextrose IVPB 100 mls/hr Q6H-IV [facility] Administration Protocol Insulin Aspart 1 vial 11/30/18 07:00 12/05/18 16:57 Novolog Vial Sliding Scale - SQ 2 units ACHS [facility] Administration Protocol Insulin Detemir 6 units 12/03/18 07:00 12/05/18 06:45 Levemir Vial SQ 6 units AM [facility] Administration Metoprolol Succinate 25 mg 12/04/18 10:30 12/05/18 11:44 Toprol Xl - PO 25 mg DAILY [facility] Administration Mupirocin 1 applic 12/01/18 10:00 12/05/18 11:46 Bactroban 2% Ointment - TP 1 applic DAILY [facility] Administration Home Medications Medication Instructions Recorded Aspirin 81 mg PO DAILY 11/30/18 Enalapril Maleate [Vasotec -] 10 mg PO DAILY 11/30/18 Furosemide 40 mg PO DAILY 11/30/18 Glipizide [Glipizide ER] 10 mg PO DAILY 11/30/18 Losartan Potassium 100 mg PO DAILY 11/30/18 Clinical indication: Evaluate for osteomyelitis second toe. Description: Sagittal,, axial, and coronal T1 and T2 STIR images were obtained and followed by post gadolinium sagittal, axial, and coronal fat-suppressed T1-weighted images after the intravenous demonstration of 20 cc of ProHance. This exam was correlated with the previous x-rays of the left foot. As seen on the previous x- rays there has been resection of the first metatarsal head and phalanges. There has been amputation of the middle and distal phalanges of the second toe and the distal aspect of the proximal phalanx. The resection of the second toe middle and distal phalanges and distal proximal phalanx is new compared to previous x-rays of the foot of 12/24/2017. There is marked dense subcutaneous soft tissue edema of the foot with fluid tracking in the deep subcutaneous soft tissues. No definite open wound is seen on the MRI. There is irregularity of the distal first metatarsal with the lateral sesamoid identified. There is a scar extending from the dorsal medial aspect of the foot to the amputation site. There is mild soft tissue edema of the distal plantar aspect at the level of the residual proximal phalanx of the second toe. There is a tiny focus of bright T2 signal and mild enhancement of the distal residual proximal phalanx which is nonspecific however early osteomyelitis cannot be excluded. Impression : 1. Status post resection of the first metatarsal head and phalanges. 2. Amputation of the middle and distal phalanges of the second toe and the distal aspect of the proximal phalanx. 3. Marked dense subcutaneous soft tissue edema of the foot. 5. Tiny focus of bright T2 signal and enhancement of the distal residual proximal phalanx of the second toe which is nonspecific however early osteomyelitis cannot be excluded. 6. Scar of the dorsal medial aspect of the foot at the amputation site of the first toe. 7. Irregularity of the residual distal first metatarsal which is likely postoperative with mild reactive productive change. Reported By: Eloina Lara MD 12/01/18 1253 Microbiology 11/29/18 23:33 Blood - Peripheral Venous Blood Culture - Final NO GROWTH AFTER 5 DAYS INCUBATION 11/29/18 23:33 Blood - Peripheral Venous Blood Culture - Final NO GROWTH AFTER 5 DAYS INCUBATION 11/29/18 23:26 Foot - Left Dorsum Gram Stain - Final 11/29/18 23:26 Foot - Left Dorsum Wound Culture - Final Morganella Morganii Proteus Vulgaris Klebsiella Oxytoca Staphylococcus Aureus Enterococcus Faecalis Streptococcus Pyogenes Grp A Staphylococcus Coagulase Neg 11/30/18 13:20 Urine - Urine Clean Catch Urine Culture - Final NO GROWTH OBTAINED Laboratory Tests 11/29/18 11/30/18 12/01/18 23:33 05:30 05:30 BUN 41 H 35 H 32 H Creatinine 1.7 H 1.5 H 1.5 H 12/02/18 12/03/18 05:30 06:00 BUN 39 H 39 H Creatinine 1.8 H 1.6 H Assessment and Plan: Patient is a 58yo male with PMHx of DM, HTN, 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 # Acute left open foot ulcer: On IV Zosyn now, since senstitive to all the organism . off Vanco now. Id on the case. MRI of the left foot reviewed , early osteo cannot be rulled out. continue IV antibiotic zosyn off vancomycin now. further Abx treatment as per ID. # ARF with worsening creatinine, baseline creatinine is 1.3, renal: on the case . ArB is on hold due to worsening creatinine, follow Potassium level # Acute on chronic diastolic CHF exacerbation : echo nl EF with LVH and mild pulm HTN on 03/13 reviewed. On IV lasix continue, weight and I&O , BNP >7000 # Acute CP: initial EKG reviewed . trop normal . As per Dr. Duncan, if needed to BB or Imdur if needed. patient had cardiac w/u done recently with no acute changes . # T2DM : takes glipizide at home. hold and give SSI , A1c 9.1 %, will add Levemir to have better control the sugar level. 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 cont norvasc, can change to losartan when renal failure improved # HLD: cont statin DVT Px : heparin Strongoilides Antibody was negative
--- NOTE | 2018-12-05 18:10 | PN ---
Progress Note (short form) - Note Progress Note: Podiatry F/U; Seen/evaluated at bedside NAD. Denies F/V/n/C/SOB/CP. Sugars chronically elevated. Afebrile, VSS JESSIE: L foot: pedal pulses 2/4, TG wnl. There is a plantar sulcus diabetic ulcer 2nd amputation stump with fibrogranular base, hyperkeratotic edges, no purulent drainage, no fluctuance, no soft tissue crepitus, no streaking cellulitis, no signs of active infection. MRI L foot: early osteomyelitis cannot be excluded Imp: 58 year old diabetic male with left foot diabetic ulcer 1. IV abx per ID 2. May need ferry terminal agent tx based on MRI determination that early OM cannot be excluded 3. Continue local care 4. Will follow Elder Ybarra DPM
[2018-12-05] MEDS: ATORVASTATIN CA 40 MG TABLET (FP) PO SCH (22:52)
[2018-12-06] MEDS ORDERED: PIPERACILLIN/TAZOBACTAM 2.25 GM VIAL IVPB ONE ×4 (02:09→21:53)
[2018-12-06] MEDS ORDERED: DEXTROSE 5%-WATER - 50 ML IVPB ONE ×4 (02:09→21:53)
[2018-12-06] MEDS ORDERED: PT OWN MED DRAWER 7, Y5N ONE (02:09)
[2018-12-06] MEDS: PIPERACILLIN/TAZOB 2.25 GM 2.25 GM in DEXTROSE 5%-WATER - 50 ML IVPB SCH ×4 (02:34→21:56)
[2018-12-06] MEDS: INSULIN (LEVEMIR) 100 UNITS/ML UNITS SQ SCH (06:40)
[2018-12-06] MEDS: INSULIN SLIDING SCALE (NOVOLOG) 1 VIAL SQ SCH ×4 (06:41→21:56)
[2018-12-06] MEDS: GABAPENTIN 100 MG CAPSULE (FP) PO SCH ×3 (06:42→21:56)
[2018-12-06] MEDS: HEPARIN NA (PORCINE) 5,000 UNITS/ML 1ML VIAL SQ SCH ×3 (06:42→21:56)
[2018-12-06 07:48] LABS: BASO % 0.9 % (0-2.0); EOS % 7.3 % (0-4.5); HEMATOCRIT 37.4 % (35.4-49); HEMOGLOBIN 12.5 GM/dL (11.7-16.9); LYMPH % 19.1 % (8-40); MCH 27.4 pg (25.7-33.7); MCHC 33.4 g/dl (32.0-35.9); MEAN PLT VOLUME 8.3 fl (7.5-11.1); MONO % 4.7 % (3.8-10.2); PLATELET COUNT 411 K/MM3 (134-434); RBC 4.56 M/mm3 (4.00-5.60); RDW 13.1 % (11.9-15.9); WHITE BLOOD COUNT 8.9 K/mm3 (4.0-10.0)
[2018-12-06 07:59] LABS: BILIRUBIN,TOTAL 0.3 mg/dL (0.2-1); CALCIUM 8.9 mg/dL (8.5-10.1); CREATININE 2.1 mg/dL (0.55-1.3); POTASSIUM 5.4 mmol/L (3.5-5.1); TOT PROT 7.1 g/dl (6.4-8.2)
[2018-12-06] MEDS ORDERED: SODIUM POLYSTYRENE SULFONATE 15 GM/60 ML BOTTLE PO ONE ×2 (08:59→10:03)
[2018-12-06] MEDS: metoPROLOL SUCCINATE 25 MG TAB.SR.24H (FP) PO SCH (09:00)
[2018-12-06] MEDS: amLODIPine BESYLATE 10 MG TABLET (FP) PO SCH (09:00)
[2018-12-06] MEDS: ASPIRIN 81 MG CHEWABLE TABLETS PO SCH (09:00)
[2018-12-06] MEDS ORDERED: FUROSEMIDE 40 MG TABLET (FP) PO SCH (10:00)
[2018-12-06] MEDS ORDERED: SODIUM CHLORIDE 1,000 ML IV SCH (10:15)
--- NOTE | 2018-12-06 10:35 | PN ---
Progress Note, Physician Chief Complaint: no chest pain or SOB TELE: NSR History of Present Illness: TELE: NSR - Current Medication List Current Medications: Active Medications Amlodipine Besylate (Norvasc -) 10 mg PO DAILY [facility] Last Admin: 12/06/18 09:00 Dose: 10 mg Aspirin (Asa -) 81 mg PO DAILY [facility] Last Admin: 12/06/18 09:00 Dose: 81 mg Atorvastatin Calcium (Lipitor -) 40 mg PO HS [facility] Last Admin: 12/05/18 22:52 Dose: 40 mg Docusate Sodium (Colace Liquid -) 200 mg PO DAILY PRN PRN Reason: CONSTIPATION Last Admin: 12/03/18 14:58 Dose: 200 mg Gabapentin (Neurontin -) 100 mg PO TID [facility] Last Admin: 12/06/18 06:42 Dose: 100 mg Glycerin (Glycerin Suppository Adult -) 1 each RC DAILY PRN PRN Reason: CONSTIPATION Heparin Sodium (Porcine) (Heparin -) 5,000 unit SQ TID [facility] Last Admin: 12/06/18 06:42 Dose: 5,000 unit Piperacillin Sod/Tazobactam (Sod 2.25 gm/ Dextrose) 50 mls @ 100 mls/hr IVPB Q6H-IV [facility]; Protocol Last Admin: 12/06/18 09:00 Dose: 100 mls/hr Sodium Chloride (Normal Saline -) 1,000 mls @ 75 mls/hr IV ASDIR [facility] Stop: 12/06/18 23:34 Insulin Aspart (Novolog Vial Sliding Scale -) 1 vial SQ ACHS [facility]; Protocol Last Admin: 12/06/18 06:41 Dose: 4 units Insulin Detemir (Levemir Vial) 6 units SQ AM [facility] Last Admin: 12/06/18 06:40 Dose: 6 units Metoprolol Succinate (Toprol Xl -) 25 mg PO DAILY [facility] Last Admin: 12/06/18 09:00 Dose: 25 mg Mupirocin (Bactroban 2% Ointment -) 1 applic TP DAILY [facility] Last Admin: 12/05/18 11:46 Dose: 1 applic - Objective Vital Signs: Vital Signs Temperature 98.2 F 12/06/18 09:09 Pulse Rate 74 12/06/18 09:09 Respiratory Rate 18 12/06/18 09:09 Blood Pressure 127/80 05/13/19 09:09 O2 Sat by Pulse Oximetry (%) 98 12/06/18 08:24 Constitutional: Yes: No Distress Eyes: Yes: Conjunctiva Clear Cardiovascular: Yes: Regular Rate and Rhythm Respiratory: Yes: CTA Bilaterally Gastrointestinal: Yes: Soft Edema: No Neurological: Yes: Alert, Oriented ...Motor Strength: WNL Labs: CBC, BMP 12/06/18 06:30 12/06/18 06:30 Laboratory Tests 12/06/18 12/06/18 06:30 06:30 WBC 8.9 Hgb 12.5 Plt Count 411 Sodium 130 L Potassium 5.4 H BUN 48 H Creatinine 2.1 H Random Glucose 191 H - ....Imaging EKG: Image Reviewed Assessment/Plan Assessment/Plan echo 02/26/18 borderline low LV function, grade I diastolic dysfunction, mild to mod MR, mild TR, RV nl size and function, mild hypokinesis of inf wall Nuclear pharm stress 03/01/18 sm to mod zone of inferior wall reversible defect from base to apex consistent with mild intensity ischemia. nl LV function, ef 52% rest, 58% after stress cath 02/2018 nonobstructive CAD, nl EF EKG: sinus rhythm, LVH with repol CXR: no acute process echo 11/2018 mod conc LVH, nl LV function, RV nl, tr MR, tr TR, mild pulm HTN, tr AR 58M h/o DM, HTN, HLD, s/p L great toe amputation and partial 2nd toe amputation p/w toe ulcer and bilateral lower extremity swelling 1. Acute on chronic diastolic HF exacerbation: - BNP >7000 - nl EF with LVH and mild pulm HTN on echo here - ARB held for JASWINDER - vol improved with iv lasix, now being held for bump in BUN/creat 2. CAD, chest pain: - nonobstructive on cath 02/2018 - has had two episodes while here; trop negative, EKG no ischemic changes - unlikely ACS. May be in setting of diastolic CHF exac - continue statin, aspirin 3. Foot ulcer: - manage per podiatry, ID 4. JASWINDER: - holding lasix 5. HTN: - on amlodipine. BP improved with addition Toprol - holding arb for JASWINDER 6. HLD: - cont statin
[2018-12-06] MEDS: MUPIROCIN 2% TOPICAL OINTMENT 22 GM TUBE TP SCH (10:55)
--- NOTE | 2018-12-06 12:03 | PN ---
Physical Exam: SUBJECTIVE: Patient seen and examined this AM. States he is still having minimal pain in the foot. Discussed the difficulty of rn long term care plan with patient as he does not have insurance and will likely need IV Abx for 6 wks with possible early osteo on MRI. OBJECTIVE: Vital Signs Period Temp Pulse Resp BP Sys/Garner Pulse Ox Last 24 Hr 97.8 F-98.3 F 67-77 14-18 102-138/59-87 98-98 GEN: alert and oriented, no acute distress HEENT: Moist mucus membranes, PERRL HEART: Regular rate and rhythm, no murmurs noted LUNGS: CTA b/l, no wheezes noted ABDOMEN: Soft, nontender, normoactive bowel sounds EXTREMITIES: 1+ peripheral edema, Left great toe amputation healed well. left 2nd toe partial amputation. 1cm diameter ulceration with mild erythema. no crepitus noted, minimal drainage Laboratory Results - last 24 hr 12/05/18 12/05/18 12/06/18 16:43 22:50 06:14 WBC RBC Hgb Hct MCV MCH MCHC RDW Plt Count MPV Absolute Neuts (auto) Neutrophils % Lymphocytes % Monocytes % Eosinophils % Basophils % Nucleated RBC % Sodium Potassium Chloride Carbon Dioxide Anion Gap BUN Creatinine Est GFR (CKD-EPI)AfAm Est GFR (CKD-EPI)NonAf POC Glucometer 156 343 203 Random Glucose Calcium Total Bilirubin AST ALT Alkaline Phosphatase Total Protein Albumin Random Vancomycin 12/06/18 12/06/18 12/06/18 06:30 06:30 06:30 WBC 8.9 RBC 4.56 Hgb 12.5 Hct 37.4 MCV 82.0 MCH 27.4 MCHC 33.4 RDW 13.1 Plt Count 411 MPV 8.3 Absolute Neuts (auto) 6.0 Neutrophils % 68.0 Lymphocytes % 19.1 Monocytes % 4.7 Eosinophils % 7.3 H Basophils % 0.9 Nucleated RBC % 0 Sodium 130 L Potassium 5.4 H Chloride 98 Carbon Dioxide 27 Anion Gap 5 L BUN 48 H Creatinine 2.1 H Est GFR (CKD-EPI)AfAm 39.31 Est GFR (CKD-EPI)NonAf 33.92 POC Glucometer Random Glucose 191 H Calcium 8.9 Total Bilirubin 0.3 AST 23 ALT 28 Alkaline Phosphatase 110 Total Protein 7.1 Albumin 3.0 L Random Vancomycin 1.1 L 12/06/18 10:56 WBC RBC Hgb Hct MCV MCH MCHC RDW Plt Count MPV Absolute Neuts (auto) Neutrophils % Lymphocytes % Monocytes % Eosinophils % Basophils % Nucleated RBC % Sodium Potassium Chloride Carbon Dioxide Anion Gap BUN Creatinine Est GFR (CKD-EPI)AfAm Est GFR (CKD-EPI)NonAf POC Glucometer 231 Random Glucose Calcium Total Bilirubin AST ALT Alkaline Phosphatase Total Protein Albumin Random Vancomycin Active Medications Generic Name Dose Route Start Last Admin Trade Name Freq PRN Reason Stop Dose Admin Amlodipine Besylate 10 mg 12/02/18 10:00 12/06/18 09:00 Norvasc - PO 10 mg DAILY CELESTINO Administration Aspirin 81 mg 12/01/18 10:00 12/06/18 09:00 Asa - PO 81 mg DAILY CELESTINO Administration Atorvastatin Calcium 40 mg 11/30/18 22:00 12/05/18 22:52 Lipitor - PO 40 mg HS CELESTINO Administration Docusate Sodium 200 mg 12/02/18 10:06 12/03/18 14:58 Colace Liquid - PO 200 mg DAILY PRN Administration CONSTIPATION Gabapentin 100 mg 11/30/18 06:00 12/06/18 06:42 Neurontin - PO 100 mg TID CELESTINO Administration Glycerin 1 each 12/02/18 10:06 Glycerin Suppository Adult - RC DAILY PRN CONSTIPATION Heparin Sodium (Porcine) 5,000 unit 11/30/18 02:09 12/06/18 06:42 Heparin - SQ 5,000 unit TID CELESTINO Administration Piperacillin Sod/Tazobactam 50 mls @ 100 mls/hr 12/01/18 09:00 12/06/18 09:00 Sod 2.25 gm/ Dextrose IVPB 100 mls/hr Q6H-IV CELESTINO Administration Protocol Sodium Chloride 1,000 mls @ 75 mls/hr 12/06/18 10:15 12/06/18 10:54 Normal Saline - IV 12/06/18 23:34 75 mls/hr ASDIR [facility] Administration Insulin Aspart 1 vial 11/30/18 07:00 12/06/18 06:41 Novolog Vial Sliding Scale - SQ 4 units ACHS CELESTINO Administration Protocol Insulin Detemir 6 units 12/03/18 07:00 12/06/18 06:40 Levemir Vial SQ 6 units AM [facility]LE[facility]INO Administration Metoprolol Succinate 25 mg 12/04/18 10:30 12/06/18 09:00 Toprol Xl - PO 25 mg DAILY CELESTINO Administration Mupirocin 1 applic 12/01/18 10:00 12/06/18 10:55 Bactroban 2% Ointment - TP 1 applic DAILY CE[facility] Administration ASSESSMENT/PLAN: 58 year old male with a medical history of hypertension, hyperlipidemia, diabetes, 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 Arechiga for a L second toe ulcer draining ulcer. Admitted for assessment and treatment of ulcer as well as possible CHF exacerbation Foot ulcer -Prior cultures noted, sensitive -Vanc/Zosyn for now, cultures noted -ID consult appreciated -Continue zosyn for now, pt will likely need PICC and daily infusion therapy, though transportation will be a challenge -Has not received Vanco in multiple days, trough to 1.1 -Podiatry consult appreciated, no surgical intervention at this time -MRI with small focus possibly consistent with early osteo -Awaiting recs for timeline of IV vs PO Abx for d/c planning Chest pain - resolved -ACS workup negative -discussed with cardiology -Recent cath noted from [place] without any concerning occlusion JASWINDER -BUN/Cr increasing today, possibly overdiuresed with IV lasix -continue to hold julio -renal US without signs of obstruction or hydronephrosis -UA with 2+ protein, 1+ glucose -FeUrea 12% suggests prerenal cause -Hold lasix today, gentle hydration for 1L, reasses in AM NIDDM -Hold glipizide -BGMs ACHS -Insulin sliding scale Acute on chronic diastolic CHF -Repeat echo unremarkable -Cardiology consult appreciated -no signs of volume overload, BUN/Cr increasing today, lasix temporarily held -Monitor volume status HTN -stabilized -Hold losartan with renal function -Norvasc 10 mg PO Daily as per cardiology, possible low b.p today, consider lower dosage if verified low b.p continues -Toprol XL 25 mg PO Daily HLD -cont lipitor 40 mg PO HS FEN -none -monitor and correct, hyperKalemia, kayexalate 30 mg given today -Diabetic/Na controlled diet DVT Prophylaxis -Hep 5000 units SQ TID Disposition Med/Surg, pt without insurance so home medication compliance is complicated Visit type - Emergency Visit Emergency Visit: Yes ED Registration Date: 11/30/18 Care time: The patient presented to the Emergency Department on the above date and was hospitalized for further evaluation of their emergent condition. - New Patient This patient is new to me today: No - Critical Care Critical Care patient: No
--- NOTE | 2018-12-06 13:25 | PN ---
Progress Note (short form) - Note Progress Note: 58 y/o male seen with left foot plantar subMT 2 ulceration with concern for possible OM on MRI. States feelign well today. Presents with dressing soaked with water. Denies any f/c/n/v/sob. O: platnar sub MT 2 MPJ ulceration, no erythema, no edema, no purulence, no malodor noted A: 58 y/o male with possible OM 2nd MT head P: Evaluated and reviewed IV vs PO abx per ID as MRI with possible early osteo Will f/u.
--- NOTE | 2018-12-06 15:54 | PN ---
Progress Note (short form) - Note Progress Note: no complaints Vital Signs Period Temp Pulse Resp BP Sys/Garner Pulse Ox Last 24 Hr 97.8 F-98.3 F 67-77 16-18 102-152/59-87 98-98 cor-rrr lungs clear abd soft,nt ext clean ulcer no drainage or erythema less leg edema CBC, BMP 12/06/18 06:30 12/06/18 06:30 Microbiology 11/29/18 23:33 Blood - Peripheral Venous Blood Culture - Final NO GROWTH AFTER 5 DAYS INCUBATION 11/29/18 23:33 Blood - Peripheral Venous Blood Culture - Final NO GROWTH AFTER 5 DAYS INCUBATION 11/29/18 23:26 Foot - Left Dorsum Gram Stain - Final 11/29/18 23:26 Foot - Left Dorsum Wound Culture - Final Morganella Morganii Proteus Vulgaris Klebsiella Oxytoca Staphylococcus Aureus Enterococcus Faecalis Streptococcus Pyogenes Grp A Staphylococcus Coagulase Neg 11/30/18 13:20 Urine - Urine Clean Catch Urine Culture - Final NO GROWTH OBTAINED imp/reccd 58 yo man with poorly controlled diabetes (hgbaic 9.5) s/p amputation of the left big toe and partial amputation of the left second toe in 2018 day #7 zosyn MRI reviewed with radiology- unlikely osteomyelitis - very minimal changes esr/crp in am change to po antibiotics in am with outpt wound care f/u-plan augmentin for two weeks can see him in wound care HE and HIS NEEDS DIABETIC TEACHING ABOUT NUTRITION! management of DM per PMD
--- NOTE | 2018-12-06 16:55 | PN ---
Teaching Attending Note Name of Resident: Juan Diego Morris ATTENDING PHYSICIAN STATEMENT I saw and evaluated the patient. I reviewed the resident's note and discussed the case with the resident. I agree with the resident's findings and plan as documented. SUBJECTIVE: Patient is feeling better with no acute distress. no nausea or vomiting, no fever or chills. OBJECTIVE: Vital Signs Temperature 98 F 12/06/18 14:43 Pulse Rate 74 12/06/18 14:43 Respiratory Rate 18 12/06/18 14:43 Blood Pressure 152/83 12/06/18 14:43 O2 Sat by Pulse Oximetry (%) 98 12/06/18 08:24 GENERAL: The patient is awake, alert, and fully oriented, in no acute distress. HEAD: Normal with no signs of trauma. EYES: PERRL, extraocular movements intact, sclera anicteric, conjunctiva clear. . ENT: Ears normal, oropharynx clear without exudates, moist mucous membranes. NECK: Trachea midline, full range of motion, supple. LUNGS: Breath sounds equal, clear to auscultation bilaterally, no wheezes, no crackles, no accessory muscle use. HEART: Regular rate and rhythm, S1, S2 without murmur, rub or gallop. ABDOMEN: Soft, nontender, nondistended, normoactive bowel sounds, no guarding, no rebound, no hepatosplenomegaly, no masses. EXTREMITIES: 2+ pulses, warm, Left foot open wound, and swelling improving, positive for trace edema. NEUROLOGICAL: Cranial nerves II through XII grossly intact. Normal speech, gait not observed. PSYCH: Normal mood, normal affect. SKIN: Warm, dry, normal turgor, no rashes or lesions noted CBCD WBC 8.9 K/mm3 (4.0-10.0) 12/06/18 06:30 RBC 4.56 M/mm3 (4.00-5.60) 12/06/18 06:30 Hgb 12.5 GM/dL (11.7-16.9) 12/06/18 06:30 Hct 37.4 % (35.4-49) 12/06/18 06:30 MCV 82.0 fl (80-96) 12/06/18 06:30 MCHC 33.4 g/dl (32.0-35.9) 12/06/18 06:30 RDW 13.1 % (11.9-15.9) 12/06/18 06:30 Plt Count 411 K/MM3 (134-434) 12/06/18 06:30 MPV 8.3 fl (7.5-11.1) 12/06/18 06:30 Sodium 130 mmol/L (136-145) L 12/06/18 06:30 Potassium 5.4 mmol/L (3.5-5.1) H 12/06/18 06:30 Chloride 98 mmol/L (98-107) 12/06/18 06:30 Carbon Dioxide 27 mmol/L (21-32) 12/06/18 06:30 Anion Gap 5 MMOL/L (8-16) L 12/06/18 06:30 BUN 48 mg/dL (7-18) H 12/06/18 06:30 Creatinine 2.1 mg/dL (0.55-1.3) H 12/06/18 06:30 Creat Clearance w eGFR 48.24 (>60) 11/30/18 05:30 Random Glucose 191 mg/dL (74-106) H 12/06/18 06:30 Calcium 8.9 mg/dL (8.5-10.1) 12/06/18 06:30 Total Bilirubin 0.3 mg/dL (0.2-1) 12/06/18 06:30 AST 23 U/L (15-37) 12/06/18 06:30 ALT 28 U/L (13-61) 12/06/18 06:30 Alkaline Phosphatase 110 U/L (45-117) 12/06/18 06:30 Total Protein 7.1 g/dl (6.4-8.2) 12/06/18 06:30 Albumin 3.0 g/dl (3.4-5.0) L 12/06/18 06:30 CARDIAC ENZYMES Creatine Kinase 127 U/L (26-308) 11/29/18 23:33 Troponin I < 0.02 ng/ml (0.00-0.05) 12/01/18 05:30 Current Medications Generic Name Dose Route Start Last Admin Trade Name Freq PRN Reason Stop Dose Admin Amlodipine Besylate 10 mg 12/02/18 10:00 12/06/18 09:00 Norvasc - PO 10 mg DAILY CELESTINO Administration Aspirin 81 mg 12/01/18 10:00 12/06/18 09:00 Asa - PO 81 mg DAILY CELESTINO Administration Atorvastatin Calcium 40 mg 11/30/18 22:00 12/05/18 22:52 Lipitor - PO 40 mg HS CELESTINO Administration Docusate Sodium 200 mg 12/02/18 10:06 12/03/18 14:58 Colace Liquid - PO 200 mg DAILY PRN Administration CONSTIPATION Gabapentin 100 mg 11/30/18 06:00 12/06/18 14:47 Neurontin - PO 100 mg TID CELESTINO Administration Glycerin 1 each 12/02/18 10:06 Glycerin Suppository Adult - RC DAILY PRN CONSTIPATION Heparin Sodium (Porcine) 5,000 unit 11/30/18 02:09 12/06/18 14:46 Heparin - SQ 5,000 unit TID CELESTINO Administration Piperacillin Sod/Tazobactam 50 mls @ 100 mls/hr 12/01/18 09:00 12/06/18 14:47 Sod 2.25 gm/ Dextrose IVPB 100 mls/hr Q6H-IV CELESTINO Administration Protocol Sodium Chloride 1,000 mls @ 75 mls/hr 12/06/18 10:15 12/06/18 10:54 Normal Saline - IV 12/06/18 23:34 75 mls/hr ASDIR [facility] Administration Insulin Aspart 1 vial 11/30/18 07:00 12/06/18 12:12 Novolog Vial Sliding Scale - SQ 4 units ACHS [facility] Administration Protocol Insulin Detemir 6 units 12/03/18 07:00 12/06/18 06:40 Levemir Vial SQ 6 units AM CELESTINO Administration Metoprolol Succinate 25 mg 12/04/18 10:30 12/06/18 09:00 Toprol Xl - PO 25 mg DAILY CELESTINO Administration Mupirocin 1 applic 12/01/18 10:00 12/06/18 10:55 Bactroban 2% Ointment - TP 1 applic DAILY [facility] Administration Home Medications Medication Instructions Recorded Aspirin 81 mg PO DAILY 11/30/18 Enalapril Maleate [Vasotec -] 10 mg PO DAILY 11/30/18 Furosemide 40 mg PO DAILY 11/30/18 Glipizide [Glipizide ER] 10 mg PO DAILY 11/30/18 Losartan Potassium 100 mg PO DAILY 11/30/18 ASSESSMENT AND PLAN: Clinical indication: Evaluate for osteomyelitis second toe. Description: Sagittal,, axial, and coronal T1 and T2 STIR images were obtained and followed by post gadolinium sagittal, axial, and coronal fat-suppressed T1-weighted images after the intravenous demonstration of 20 cc of ProHance. This exam was correlated with the previous x-rays of the left foot. As seen on the previous x- rays there has been resection of the first metatarsal head and phalanges. There has been amputation of the middle and distal phalanges of the second toe and the distal aspect of the proximal phalanx. The resection of the second toe middle and distal phalanges and distal proximal phalanx is new compared to previous x-rays of the foot of 12/24/2017. There is marked dense subcutaneous soft tissue edema of the foot with fluid tracking in the deep subcutaneous soft tissues. No definite open wound is seen on the MRI. There is irregularity of the distal first metatarsal with the lateral sesamoid identified. There is a scar extending from the dorsal medial aspect of the foot to the amputation site. There is mild soft tissue edema of the distal plantar aspect at the level of the residual proximal phalanx of the second toe. There is a tiny focus of bright T2 signal and mild enhancement of the distal residual proximal phalanx which is nonspecific however early osteomyelitis cannot be excluded. Impression : 1. Status post resection of the first metatarsal head and phalanges. 2. Amputation of the middle and distal phalanges of the second toe and the distal aspect of the proximal phalanx. 3. Marked dense subcutaneous soft tissue edema of the foot. 5. Tiny focus of bright T2 signal and enhancement of the distal residual proximal phalanx of the second toe which is nonspecific however early osteomyelitis cannot be excluded. 6. Scar of the dorsal medial aspect of the foot at the amputation site of the first toe. 7. Irregularity of the residual distal first metatarsal which is likely postoperative with mild reactive productive change. Reported By: Eloina Lara MD 12/01/18 1253 Microbiology 11/29/18 23:33 Blood - Peripheral Venous Blood Culture - Final NO GROWTH AFTER 5 DAYS INCUBATION 11/29/18 23:33 Blood - Peripheral Venous Blood Culture - Final NO GROWTH AFTER 5 DAYS INCUBATION 11/29/18 23:26 Foot - Left Dorsum Gram Stain - Final 11/29/18 23:26 Foot - Left Dorsum Wound Culture - Final Morganella Morganii Proteus Vulgaris Klebsiella Oxytoca Staphylococcus Aureus Enterococcus Faecalis Streptococcus Pyogenes Grp A Staphylococcus Coagulase Neg 11/30/18 13:20 Urine - Urine Clean Catch Urine Culture - Final NO GROWTH OBTAINED Laboratory Tests 11/29/18 11/30/18 12/01/18 23:33 05:30 05:30 BUN 41 H 35 H 32 H Creatinine 1.7 H 1.5 H 1.5 H 12/02/18 12/03/18 05:30 06:00 BUN 39 H 39 H Creatinine 1.8 H 1.6 H Assessment and Plan: Patient is a 58yo male with PMHx of DM, HTN, 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 # Acute left open foot ulcer: On IV Zosyn now, since sensitive to all the organism .as per ID can go home in am on Augmentin Po, s/p Vanco. MRI of the left foot reviewed , doesn't look like osteo as per 's note, continue IV antibiotic zosyn for now, and will discharge him on PO meds.in am if stable medically. # Acute Hyponatremia will give him 0.9ns at75cc/hr x 1 liter will follow the level # ARF with worsening BUN/creatinine, baseline creatinine is 1.3, renal: on the case . ArB is on hold due to worsening creatinine. # Acute on chronic diastolic CHF exacerbation : echo nl EF with LVH and mild pulm HTN on 03/13 reviewed. will dc lasix , weight and I&O , BNP >7000 # Acute CP: initial EKG reviewed . trop normal . As per Dr. Duncan, if needed to BB or Imdur if needed. patient had cardiac w/u done recently with no acute changes . # T2DM : takes glipizide at home. hold and give SSI , A1c 9.1 %, will add Levemir to have better control the sugar level. 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 cont norvasc, can change to losartan when renal failure improved # HLD: cont statin DVT Px : heparin Strongoilides Antibody was negative
[2018-12-06] MEDS ORDERED: GLYCERIN 1 RECTAL SUPPOSITORY, ADULT RC PRN (20:52)
[2018-12-06] MEDS ORDERED: DOCUSATE NA 100 MG/10 ML UNIT-DOSE CUPS PO PRN (20:52)
[2018-12-06] MEDS ORDERED: ATORVASTATIN CA 40 MG TABLET (FP) PO SCH (22:00)
[2018-12-07] MEDS ORDERED: PIPERACILLIN/TAZOBACTAM 2.25 GM VIAL IVPB ONE ×3 (02:09→09:36)
[2018-12-07] MEDS ORDERED: DEXTROSE 5%-WATER - 50 ML IVPB ONE ×2 (02:11→09:36)
[2018-12-07] MEDS: PIPERACILLIN/TAZOB 2.25 GM 2.25 GM in DEXTROSE 5%-WATER - 50 ML IVPB SCH ×2 (02:15→09:50)
[2018-12-07] MEDS: GABAPENTIN 100 MG CAPSULE (FP) PO SCH (05:18)
[2018-12-07] MEDS: HEPARIN NA (PORCINE) 5,000 UNITS/ML 1ML VIAL SQ SCH (05:18)
[2018-12-07 05:41] VITALS: PULSE 77
[2018-12-07] MEDS: INSULIN SLIDING SCALE (NOVOLOG) 1 VIAL SQ SCH ×2 (06:03→11:29)
[2018-12-07] MEDS ORDERED: INSULIN (LEVEMIR) 100 UNITS/ML UNITS SQ SCH (07:00)
[2018-12-07 07:41] LABS: ANION GAP 6 MMOL/L (8-16); BLOOD UREA NITROGEN 41 mg/dL (7-18); CALCIUM 8.6 mg/dL (8.5-10.1); CHLORIDE 102 mmol/L (98-107); CO2 28 mmol/L (21-32); CREATININE 1.9 mg/dL (0.55-1.3); GLUCOSE,RANDOM 170 mg/dL (74-106); MAGNESIUM 2.5 mg/dL (1.8-2.4); PHOSPHOROUS 5.2 mg/dL (2.5-4.9); POTASSIUM 5.4 mmol/L (3.5-5.1); SODIUM 135 mmol/L (136-145)
[2018-12-07] MEDS ORDERED: SODIUM POLYSTYRENE SULFONATE 15 GM/60 ML BOTTLE PO ONE (09:00)
[2018-12-07] MEDS: metoPROLOL SUCCINATE 25 MG TAB.SR.24H (FP) PO SCH (09:52)
[2018-12-07] MEDS ORDERED: MUPIROCIN 2% TOPICAL OINTMENT 22 GM TUBE TP SCH (10:00)
[2018-12-07] MEDS ORDERED: ASPIRIN 81 MG CHEWABLE TABLETS PO SCH (10:00)
[2018-12-07] MEDS ORDERED: amLODIPine BESYLATE 10 MG TABLET (FP) PO SCH (10:00)
--- NOTE | 2018-12-07 10:20 | PN ---
Progress Note (short form) - Note Progress Note: s: feels well, no chest pain, palps, dizziness, edema. wants to go home Current Medications Amlodipine Besylate (Norvasc -) 10 mg PO DAILY [facility] Last Admin: 12/07/18 09:52 Dose: 10 mg Aspirin (Asa -) 81 mg PO DAILY [facility] Last Admin: 12/07/18 09:52 Dose: 81 mg Atorvastatin Calcium (Lipitor -) 40 mg PO HS [facility] Last Admin: 12/06/18 21:56 Dose: 40 mg Docusate Sodium (Colace Liquid -) 200 mg PO DAILY PRN PRN Reason: CONSTIPATION Gabapentin (Neurontin -) 100 mg PO TID [facility] Last Admin: 12/07/18 05:18 Dose: 100 mg Glycerin (Glycerin Suppository Adult -) 1 each RC DAILY PRN PRN Reason: CONSTIPATION Heparin Sodium (Porcine) (Heparin -) 5,000 unit SQ TID [facility] Last Admin: 12/07/18 05:18 Dose: 5,000 unit Piperacillin Sod/Tazobactam (Sod 2.25 gm/ Dextrose) 50 mls @ 100 mls/hr IVPB Q6H-IV [facility]; Protocol Last Admin: 12/07/18 09:50 Dose: 100 mls/hr Insulin Aspart (Novolog Vial Sliding Scale -) 1 vial SQ ACHS [facility]; Protocol Last Admin: 12/07/18 06:03 Dose: Not Given Insulin Detemir (Levemir Vial) 6 units SQ AM [facility] Last Admin: 12/07/18 06:03 Dose: 6 units Metoprolol Succinate (Toprol Xl -) 25 mg PO DAILY [facility] Last Admin: 12/07/18 09:52 Dose: 25 mg Mupirocin (Bactroban 2% Ointment -) 1 applic TP DAILY [facility] Last Admin: 12/07/18 09:54 Dose: 1 applic Vital Signs Period Temp Pulse Resp BP Sys/Garner Pulse Ox Last 24 Hr 97.6 F-98.1 F 71-77 18-18 152-159/83-99 99 Constitutional: Yes: No Distress Eyes: Yes: Conjunctiva Clear Cardiovascular: Yes: Regular Rate and Rhythm Respiratory: Yes: CTA Bilaterally Gastrointestinal: Yes: Soft Edema: No Neurological: Yes: Alert, Oriented ...Motor Strength: WNL - ....Imaging EKG: Image Reviewed Assessment/Plan echo 02/26/18 borderline low LV function, grade I diastolic dysfunction, mild to mod MR, mild TR, RV nl size and function, mild hypokinesis of inf wall Nuclear pharm stress 03/01/18 sm to mod zone of inferior wall reversible defect from base to apex consistent with mild intensity ischemia. nl LV function, ef 52% rest, 58% after stress cath 02/2018 nonobstructive CAD, nl EF EKG: sinus rhythm, LVH with repol CXR: no acute process echo 11/2018 mod conc LVH, nl LV function, RV nl, tr MR, tr TR, mild pulm HTN, tr AR 58M h/o DM, HTN, HLD, s/p L great toe amputation and partial 2nd toe amputation p/w toe ulcer and bilateral lower extremity swelling 1. Acute on chronic diastolic HF exacerbation: - BNP >7000 - nl EF with LVH and mild pulm HTN on echo here - ARB held for JASWINDER - vol improved with iv lasix, PO lasix held for rising Cr, now improved - restart PO lasix on discharge 2. CAD, chest pain: - nonobstructive on cath 02/2018 - has had two episodes while here; trop negative, EKG no ischemic changes - unlikely ACS. May be in setting of diastolic CHF exac - continue statin, aspirin 3. Foot ulcer: - manage per podiatry, ID 4. JASWINDER: - holding lasix 5. HTN: - on amlodipine. BP improved with addition Toprol - holding arb for JASWINDER 6. HLD: - cont statin Stable for dc from cardiac perspective
--- NOTE | 2018-12-07 11:48 | PN ---
Teaching Attending Note Name of Resident: Juan Diego Morris ATTENDING PHYSICIAN STATEMENT I saw and evaluated the patient. I reviewed the resident's note and discussed the case with the resident. I agree with the resident's findings and plan as documented. SUBJECTIVE: Patient is feeling better with no acute distress. No shortness of breath, no fever or chills. no abdominal pain. OBJECTIVE: Vital Signs Temperature 98.1 F 12/07/18 05:20 Pulse Rate 77 12/07/18 05:20 Respiratory Rate 18 12/07/18 05:20 Blood Pressure 154/99 12/07/18 05:20 O2 Sat by Pulse Oximetry (%) 99 12/06/18 21:00 GENERAL: The patient is awake, alert, and fully oriented, in no acute distress. HEAD: Normal with no signs of trauma. EYES: PERRL, extraocular movements intact, sclera anicteric, conjunctiva clear. . ENT: Ears normal, oropharynx clear without exudates, moist mucous membranes. NECK: Trachea midline, full range of motion, supple. LUNGS: Breath sounds equal, clear to auscultation bilaterally, no wheezes, no crackles, no accessory muscle use. HEART: Regular rate and rhythm, S1, S2 without murmur, rub or gallop. ABDOMEN: Soft, nontender, nondistended, normoactive bowel sounds, no guarding, no rebound, no hepatosplenomegaly, no masses. EXTREMITIES: 2+ pulses, warm, Left foot open wound decreased in size now, non tender around the wound, no discharge noted or expressed , swelling improved, positive for trace edema NEUROLOGICAL: Cranial nerves II through XII grossly intact. Normal speech, gait not observed. PSYCH: Normal mood, normal affect. SKIN: Warm, dry, normal turgor, no rashes or lesions noted CBCD WBC 8.9 K/mm3 (4.0-10.0) 12/06/18 06:30 RBC 4.56 M/mm3 (4.00-5.60) 12/06/18 06:30 Hgb 12.5 GM/dL (11.7-16.9) 12/06/18 06:30 Hct 37.4 % (35.4-49) 12/06/18 06:30 MCV 82.0 fl (80-96) 12/06/18 06:30 MCHC 33.4 g/dl (32.0-35.9) 12/06/18 06:30 RDW 13.1 % (11.9-15.9) 12/06/18 06:30 Plt Count 411 K/MM3 (134-434) 12/06/18 06:30 MPV 8.3 fl (7.5-11.1) 12/06/18 06:30 CMP Sodium 135 mmol/L (136-145) L 12/07/18 06:00 Potassium 5.4 mmol/L (3.5-5.1) H 12/07/18 06:00 Chloride 102 mmol/L (98-107) 12/07/18 06:00 Carbon Dioxide 28 mmol/L (21-32) 12/07/18 06:00 Anion Gap 6 MMOL/L (8-16) L 12/07/18 06:00 BUN 41 mg/dL (7-18) H 12/07/18 06:00 Creatinine 1.9 mg/dL (0.55-1.3) H 12/07/18 06:00 Creat Clearance w eGFR 48.24 (>60) 11/30/18 05:30 Random Glucose 170 mg/dL (74-106) H 12/07/18 06:00 Calcium 8.6 mg/dL (8.5-10.1) 12/07/18 06:00 Total Bilirubin 0.3 mg/dL (0.2-1) 12/06/18 06:30 AST 23 U/L (15-37) 12/06/18 06:30 ALT 28 U/L (13-61) 12/06/18 06:30 Alkaline Phosphatase 110 U/L (45-117) 12/06/18 06:30 Total Protein 7.1 g/dl (6.4-8.2) 12/06/18 06:30 Albumin 3.0 g/dl (3.4-5.0) L 12/06/18 06:30 CARDIAC ENZYMES Creatine Kinase 127 U/L (26-308) 11/29/18 23:33 Troponin I < 0.02 ng/ml (0.00-0.05) 12/01/18 05:30 Current Medications Generic Name Dose Route Start Last Admin Trade Name Freq PRN Reason Stop Dose Admin Amlodipine Besylate 10 mg 12/07/18 10:00 12/07/18 09:52 Norvasc - PO 10 mg DAILY CELESTINO Administration Aspirin 81 mg 12/07/18 10:00 12/07/18 09:52 Asa - PO 81 mg DAILY CELESTINO Administration Atorvastatin Calcium 40 mg 12/06/18 22:00 12/06/18 21:56 Lipitor - PO 40 mg HS CELESTINO Administration Docusate Sodium 200 mg 12/06/18 20:52 Colace Liquid - PO DAILY PRN CONSTIPATION Gabapentin 100 mg 12/06/18 22:00 12/07/18 05:18 Neurontin - PO 100 mg TID CELESTINO Administration Glycerin 1 each 12/06/18 20:52 Glycerin Suppository Adult - RC DAILY PRN CONSTIPATION Heparin Sodium (Porcine) 5,000 unit 12/06/18 22:00 12/07/18 05:18 Heparin - SQ 5,000 unit TID CELESTINO Administration Piperacillin Sod/Tazobactam 50 mls @ 100 mls/hr 12/06/18 21:00 12/07/18 09:50 Sod 2.25 gm/ Dextrose IVPB 100 mls/hr Q6H-IV CELESTINO Administration Protocol Insulin Aspart 1 vial 12/06/18 22:00 12/07/18 11:29 Novolog Vial Sliding Scale - SQ 4 units ACHS [facility] Administration Protocol Insulin Detemir 6 units 12/07/18 07:00 12/07/18 06:03 Levemir Vial SQ 6 units AM CELESTINO Administration Metoprolol Succinate 25 mg 12/04/18 10:30 12/07/18 09:52 Toprol Xl - PO 25 mg DAILY CELESTINO Administration Mupirocin 1 applic 12/07/18 10:00 12/07/18 09:54 Bactroban 2% Ointment - TP 1 applic DAILY CELESTINO Administration Home Medications Medication Instructions Recorded Aspirin 81 mg PO DAILY 11/30/18 Furosemide 40 mg PO DAILY 11/30/18 Glipizide [Glipizide ER] 10 mg PO DAILY 11/30/18 Amlodipine Besylate [Norvasc -] 10 mg PO DAILY #30 tablet 12/07/18 Amox-Tr/K Cl [Augmentin - 875Mg 1 tab PO BID #28 tablet 12/07/18 Tablet] Atorvastatin Ca [Lipitor] 40 mg PO HS tablet 12/07/18 Furosemide [Lasix -] 40 mg PO DAILY #30 tablet 12/07/18 Metoprolol Succinate [Toprol XL -] 25 mg PO DAILY #30 tab.sr.24h 12/07/18 Silver Sulfadiazine [Silvadene] 25 gm TP BID #1 cream..g. 12/07/18 Clinical indication: Evaluate for osteomyelitis second toe. Description: Sagittal,, axial, and coronal T1 and T2 STIR images were obtained and followed by post gadolinium sagittal, axial, and coronal fat-suppressed T1-weighted images after the intravenous demonstration of 20 cc of ProHance. This exam was correlated with the previous x-rays of the left foot. As seen on the previous x- rays there has been resection of the first metatarsal head and phalanges. There has been amputation of the middle and distal phalanges of the second toe and the distal aspect of the proximal phalanx. The resection of the second toe middle and distal phalanges and distal proximal phalanx is new compared to previous x-rays of the foot of 12/24/2017. There is marked dense subcutaneous soft tissue edema of the foot with fluid tracking in the deep subcutaneous soft tissues. No definite open wound is seen on the MRI. There is irregularity of the distal first metatarsal with the lateral sesamoid identified. There is a scar extending from the dorsal medial aspect of the foot to the amputation site. There is mild soft tissue edema of the distal plantar aspect at the level of the residual proximal phalanx of the second toe. There is a tiny focus of bright T2 signal and mild enhancement of the distal residual proximal phalanx which is nonspecific however early osteomyelitis cannot be excluded. Impression : 1. Status post resection of the first metatarsal head and phalanges. 2. Amputation of the middle and distal phalanges of the second toe and the distal aspect of the proximal phalanx. 3. Marked dense subcutaneous soft tissue edema of the foot. 5. Tiny focus of bright T2 signal and enhancement of the distal residual proximal phalanx of the second toe which is nonspecific however early osteomyelitis cannot be excluded. 6. Scar of the dorsal medial aspect of the foot at the amputation site of the first toe. 7. Irregularity of the residual distal first metatarsal which is likely postoperative with mild reactive productive change. Reported By: Eloina Lara MD 12/01/18 1253 Microbiology 11/29/18 23:33 Blood - Peripheral Venous Blood Culture - Final NO GROWTH AFTER 5 DAYS INCUBATION 11/29/18 23:33 Blood - Peripheral Venous Blood Culture - Final NO GROWTH AFTER 5 DAYS INCUBATION 11/29/18 23:26 Foot - Left Dorsum Gram Stain - Final 11/29/18 23:26 Foot - Left Dorsum Wound Culture - Final Morganella Morganii Proteus Vulgaris Klebsiella Oxytoca Staphylococcus Aureus Enterococcus Faecalis Streptococcus Pyogenes Grp A Staphylococcus Coagulase Neg 11/30/18 13:20 Urine - Urine Clean Catch Urine Culture - Final NO GROWTH OBTAINED Laboratory Tests 11/29/18 11/30/18 12/01/18 23:33 05:30 05:30 BUN 41 H 35 H 32 H Creatinine 1.7 H 1.5 H 1.5 H 12/02/18 12/03/18 05:30 06:00 BUN 39 H 39 H Creatinine 1.8 H 1.6 H Strongoilides Antibody was negative Assessment and Plan: Patient is a 58yo male with PMHx of DM, HTN, 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 # Acute left open foot ulcer: s/p IV Zosyn improved, can be discharged home now as per ID, no MRSA, will discharge the patient on po Augmentin as per IDs recommendation. s/p Vanco as well. MRI of the left foot reviewed , doesn't look like osteo as per 's note. Also added silver sufadiazine to his wound with follow up appointment with the wound clinic # Acute Hyponatremia improved post iv 0.9ns at 75cc/hr x 1 liter # ARF with worsening BUN/creatinine, baseline creatinine is 1.3, renal: on the case . ArB is on hold , follow up with dr levin in a week period . # Acute on chronic diastolic CHF exacerbation : echo nl EF with LVH and mild pulm HTN on 03/13 reviewed. discussed with cardio Dr. Null will discharge the patient home on oral lasix # s/p CP: initial EKG reviewed . trop normal . As per Dr. Duncan, if needed to BB or Imdur if needed. patient had cardiac w/u done recently with no acute changes . # T2DM : takes glipizide at home. continue, since patient does not want any Insulin for home. follow with dr clifford within a week. 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 cont norvasc, can change to losartan when renal failure improved # HLD: cont statin discharge patient home on oral augmentin x 7 days
[2018-12-07 11:55] VITALS: BP 163/97; TEMP 98.2
--- NOTE | 2018-12-07 12:11 | DS ---
Physical Exam: SUBJECTIVE: Patient seen and examined this AM. He states he is doing well and is excited about the possibility of returning home. OBJECTIVE: Vital Signs Period Temp Pulse Resp BP Sys/Garner Pulse Ox Last 24 Hr 97.6 F-98.2 F 71-77 18-18 152-163/83-99 97-99 PHYSICAL EXAM GEN: alert and oriented, no acute distress HEENT: Moist mucus membranes, PERRL HEART: Regular rate and rhythm, no murmurs noted LUNGS: CTA b/l, no wheezes noted ABDOMEN: Soft, nontender, normoactive bowel sounds EXTREMITIES: 1+ peripheral edema, Left great toe amputation healed well. left 2nd toe partial amputation. 1cm diameter ulceration with mild erythema. no crepitus noted, minimal drainage LABS Laboratory Results - last 24 hr 12/06/18 12/06/18 12/07/18 17:25 21:09 05:23 ESR Sodium Potassium Chloride Carbon Dioxide Anion Gap BUN Creatinine Est GFR (CKD-EPI)AfAm Est GFR (CKD-EPI)NonAf POC Glucometer 204 179 139 Random Glucose Calcium Phosphorus Magnesium C-Reactive Protein 12/07/18 12/07/18 12/07/18 06:00 06:00 11:25 ESR 78 H Sodium 135 L Potassium 5.4 H Chloride 102 Carbon Dioxide 28 Anion Gap 6 L BUN 41 H Creatinine 1.9 H Est GFR (CKD-EPI)AfAm 44.37 Est GFR (CKD-EPI)NonAf 38.28 POC Glucometer 236 Random Glucose 170 H Calcium 8.6 Phosphorus 5.2 H Magnesium 2.5 H C-Reactive Protein < 0.3 HOSPITAL COURSE: Date of Admission:11/30/18 Date of Discharge: 12/07/18 HPI on Admission: 58 year old male with a medical history of hypertension, hyperlipidemia, diabetes, 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 Arechiga for a L second toe ulcer draining what is reported to be purulent drainage and bilateral lower extremity swelling. Patient reports 2 months of bilateral LE pitting edema and worsening dyspnea on exertion. He is reported to have started lasix 1 month ago (40mg daily) which he states has not helped the swelling and has mildly helped the shortness of breath. Patient is noncompliant with his medications as he does not have insurance. Denies chest pain, SOB, nausea, vomiting, diarrhea, fevers, chills. Hospital Course: Pt was initially given Vanc/Zosyn however was seen by ID who recommended continuation of Zosyn. Cultures returned with numerous bacteria growing and case was discussed with ID after 7 days of Zosyn when sensitivies returned and it was recommended the patient be discharged with 2 weeks of Augmentin and follow up in the wound care center for further management. Of note, he was seen by Podiatry who did not recommend surgical intervention at this time and recommended only local wound care in addition to Abx as per ID. He had an JASWINDER during his stay which could have been exacerbated by the fact that the patient was taking both enalapril and losartan at home. Home compliance with medications is unreliable as pt is without insurance. He does follow up at the resident clinic however it appears he was out of some medications (lasix specifically for a few days) and taking some medications that had been discontinued previously (lisinopril). the rene/arbs were held due to JASWINDER which fluctuated throughout his stay. he was given Norvasc 10 mg Daily during his time in the hospital and also given Toprol XL 25mg daily as per cardiology. These were prescribed on discharge to [facility] with the hope that patient will be able to brain picker the medications and take until he can follow up in the clinic for further management. Ideally patient should be on Rene/Arb with uncontrolled DM and HTN, however will hold for now with fluctuating renal function until patient can follow up in clinic. Minutes to complete discharge: 35 Discharge Summary Reason For Visit: DIABETIC INFECTION OF LEFT FOOT. CONGESTIVE HEART Current Active Problems CHF (congestive heart failure) (Chronic) Diabetic foot ulcer (Chronic) Condition: Improved - Instructions Diet, Activity, Other Instructions: You were admitted in the hospital for an ulcer on your left 2nd toe. You were treated with antibiotics. You were seen by a solar installation crew supervisor who did not recommend surgical intervention at this time. You were also seen by an infectious disease doctor who made the recommendations about your antibiotics. At this time you are medically safe to go home. Medications: You should stop taking enalapril and Losartan You were also started on a medication Toprol XL 25 mg per day which you should take once daily. You should take Augmentin (antibiotic) once in the morning and once at night for 2 weeks. You are also being prescribed silvadene cream to put on your foot once in the morning and once at night. You should continue taking all of your other home medications as prescribed. You should follow up with your primary care physician within one week of discharge from the hospital. You should follow up in the wound care center at the hospital within 1-2 weeks of discharge. You should follow up with your solar installation crew supervisor, Dr. Ybarra in his office (or in wound care center as above) If you have any severe or concerning symptoms, you should be seen by your doctor or return to the emergency room for further evaluation. Referrals: Curt Arechiga MD [Primary Care Provider] - Maxi Ybarra MD [Staff Physician] - Ana Haq MD [Staff Physician] - 2 Weeks Samina Kamara MD [Staff Physician] - 1 Week Disposition: HOME - Home Medications Comprehensive Discharge Medication List: Ambulatory Orders Aspirin 81 mg PO DAILY 11/30/18 Furosemide 40 mg PO DAILY 11/30/18 Glipizide [Glipizide ER] 10 mg PO DAILY 11/30/18 Amlodipine Besylate [Norvasc -] 10 mg PO DAILY #30 tablet 12/07/18 Amox-Tr/K Cl [Augmentin - 875Mg Tablet] 1 tab PO BID #28 tablet 12/07/18 Atorvastatin Ca [Lipitor] 40 mg PO HS tablet 12/07/18 Furosemide [Lasix -] 40 mg PO DAILY #30 tablet 12/07/18 Metoprolol Succinate [Toprol XL -] 25 mg PO DAILY #30 tab.sr.24h 12/07/18 Silver Sulfadiazine [Silvadene] 25 gm TP BID #1 cream..g. 12/07/18 This patient is new to me today: Yes Date on this admission: 12/07/18 Emergency Visit: No Critical Care patient: No - Discharge Referral Referred to [facility] No
== END 2018-12-07 13:26 | disposition home or self-care (01) | DRG 380 ==
LOC: JER 20:49 → JERBED 11-30 01:55 → J4S 12-01 00:07
PROVIDERS: ADMIT Internal Medicine; ATTEND Internal Medicine
DX: E11.621 Type 2 diabetes mellitus with foot ulcer (principal); L97.528 Non-pressure chronic ulcer of other part of left foot with other specified severity; E78.5 Hyperlipidemia, unspecified; N17.9 Acute kidney failure, unspecified; E11.65 Type 2 diabetes mellitus with hyperglycemia; E11.22 Type 2 diabetes mellitus with diabetic chronic kidney disease; N18.9 Chronic kidney disease, unspecified; I25.10 Atherosclerotic heart disease of native coronary artery without angina pectoris; E11.42 Type 2 diabetes mellitus with diabetic polyneuropathy; N40.0 Benign prostatic hyperplasia without lower urinary tract symptoms; K59.00 Constipation, unspecified; I27.20 Pulmonary hypertension, unspecified; I13.0 Hypertensive heart and chronic kidney disease with heart failure and stage 1 through stage 4 chronic kidney disease, or unspecified chronic kidney disease; I50.33 Acute on chronic diastolic (congestive) heart failure; E87.1 Hypo-osmolality and hyponatremia; R07.89 Other chest pain; Z89.412 Acquired absence of left great toe; E11.51 Type 2 diabetes mellitus with diabetic peripheral angiopathy without gangrene; E87.79 Other fluid overload; E87.5 Hyperkalemia; D64.9 Anemia, unspecified; L08.89 Other specified local infections of the skin and subcutaneous tissue; B95.0 Streptococcus, group A, as the cause of diseases classified elsewhere; B96.4 Proteus (mirabilis) (morganii) as the cause of diseases classified elsewhere; B95.2 Enterococcus as the cause of diseases classified elsewhere; B96.1 Klebsiella pneumoniae [K. pneumoniae] as the cause of diseases classified elsewhere; B95.7 Other staphylococcus as the cause of diseases classified elsewhere
CPT/HCPCS: 36415; 71046-TC-FY; 73630-TC-LT; 73722-LT; 76775-TC; 80048; 80053; 80061; 81003; 82550; 82565; 82962; 83036; 83721; 83735; 83880; 84100; 84156; 84300; 84443; 84484; 84540; 85025; 85027; 85651; 86140; 86682; 87040; 87070; 87086; 87186; 87205; 93005; 93010; 93306-TC; 93970-TC; 99285-25; G0480; J1644; J7030

== ENCOUNTER 2019-02-04 17:17 | Inpatient (IN) | payer OTHER | END 2019-02-21 15:25 | disposition home or self-care (01) | LOC: J8W 02-05 02:55 → JER 17:17 → JERBED 23:46 ==

== ENCOUNTER 2019-05-17 18:19 | Inpatient (IN) | payer OTHER ==
--- NOTE | 2019-05-17 18:54 | PDOC ---
Rapid Medical Evaluation Time Seen by Provider: 05/17/19 18:30 Medical Evaluation: Allergies Allergy/AdvReac Type Severity Reaction Status Date / Time pantoprazole AdvReac Mild Vomiting Verified 02/05/19 13:55 05/17/19 18:50 CC: "My pressure is high." +cough also with intermittent Chest pain PE: Lungs CTAB. BLE 3+pitting edema. Orders: cardiac w/u Patient will proceed to the ER for further evaluation. Discharge Disposition - Diagnosis Chest pain - Referrals - Patient Instructions - Post Discharge Activity
--- NOTE | 2019-05-17 21:52 | PDOC ---
History of Present Illness - General Chief Complaint: Edema Stated Complaint: COUGH/HBP Time Seen by Provider: 05/17/19 18:30 History Source: Patient Exam Limitations: No Limitations - History of Present Illness Initial Comments: 05/18/19 00:30 58 yo M with a hx of CAD s/p cath (no stents), CKD 3, HTN, HLD, and DM (on oral anti-glycemics) s/p toe amputation recently of left 2nd toe presents to the emergency department with hemoptysis and SOB. Per the patient, he had multiple coughs prior to expelling bright red blood. The patient states he has had progressively worsening SOB throughout he past week with ambulation. Denies recent travels and TB exposure. Denies chest pain. Denies fever, chills, nausea , vomiting, abdominal pain, dysuria, hematuria, and diarrhea. Denies hematochezia and melena. No hx of GI ulcers. Allergies: Pantoprazole Past History - Past Medical History Allergies/Adverse Reactions: Allergies Allergy/AdvReac Type Severity Reaction Status Date / Time pantoprazole AdvReac Mild Vomiting Verified 02/05/19 13:55 Home Medications: Ambulatory Orders Amlodipine Besylate [Norvasc -] 10 mg PO DAILY tablet 02/21/19 Aspirin [ASA -] 81 mg PO DAILY tab.chew 02/21/19 Docusate Sodium [Colace -] 100 mg PO TID capsule 02/21/19 Furosemide [Lasix -] 40 mg PO DAILY tablet 02/21/19 Glipizide [Glipizide ER] 10 mg PO DAILY #60 tab.er.24 02/21/19 Metoprolol Succinate [Toprol XL -] 25 mg PO BID tab.sr.24h 02/21/19 COPD: No Diabetes: Yes Disorders: Yes (constipation) HTN: Yes Hypercholesterolemia: Yes - Surgical History Cardiac Surgery: Yes (cardiac cath) Orthopedic Surgery: Yes (left 1st toe amp, left 2nd toe partial amp) - Psycho Social/Smoking Cessation Hx Smoking History: Never smoked Have you smoked in the past 12 months: No Number of Cigarettes Smoked Daily: 20 If you are a former smoker, when did you quit?: 13 years ago Information on smoking cessation initiated: No Hx Alcohol Use: No Drug/Substance Use Hx: No Substance Use Type: None Hx Substance Use Treatment: No Review of Systems - Review of Systems Able to Perform ROS?: Yes Is the patient limited [place] Citizen proficient: No Constitutional: No: Chills, Diaphoresis, Fever, Weakness HEENTM: No: Eye Pain, Ear Pain, Nose Pain, Throat Pain, Mouth Pain Respiratory: Yes: Cough, Shortness of Breath, Hemoptysis Cardiac (ROS): Yes: Edema, Chest Tightness. No: Chest Pain, Lightheadedness, Palpitations, Syncope ABD/GI: No: Constipated, Diarrhea, Nausea, Rectal Bleeding, Vomiting, Tarry Stools : No: Burning, Dysuria, Hematuria, Incontinence Musculoskeletal: No: Back Pain, Joint Pain, Neck Pain Integumentary: No: Bruising, Erythema, Rash Neurological: No: Headache, Numbness, Tingling, Tremors Psychiatric: No: Change in Appetite Endocrine: No: Unexplained Weight Gain Hematologic/Lymphatic: No: Anemia *Physical Exam - Vital Signs Last Vital Signs Temp Pulse Resp BP Pulse Ox 98.8 F 89 16 181/96 H 99 05/17/19 18:52 05/17/19 18:52 05/17/19 18:52 05/17/19 18:52 05/17/19 18:52 - Physical Exam General Appearance: Yes: Nourished, Appropriately Dressed. No: Apparent Distress, Intoxicated HEENT: positive: EOMI, TRAVIS, Normal Voice, Symmetrical, Pharynx Normal, Hearing Grossly Normal. negative: Pale Conjunctivae, Scleral Icterus (R), Scleral Icterus (L), Muffled/Hoarse voice, Pharyngeal Erythema, Tonsillar Exudate, Tonsillar Erythema, Nasal Congestion, Rhinorrhea, Excessive drooling Neck: positive: Trachea midline, Supple. negative: Tender, Lymphadenopathy (R) , Lymphadenopathy (L), Tender lateral, Tender midline Respiratory/Chest: positive: Lungs Clear, Decreased Breath Sounds. negative: Chest Tender, Normal Breath Sounds, Respiratory Distress, Accessory Muscle Use, Crackles, Rales, Rhonchi, Stridor, Wheezing Cardiovascular: positive: Regular Rhythm, Regular Rate, S1, S2. negative: Systolic Murmur Gastrointestinal/Abdominal: positive: Normal Bowel Sounds, Flat, Soft. negative : Tender Lymphatic: negative: Adenopathy Musculoskeletal: positive: Normal Inspection. negative: CVA Tenderness, Vertebral Tenderness Extremity: positive: Normal Capillary Refill, Normal Range of Motion, Pedal Edema, Swelling (bilateral swelling in LE 3+ pitting edema). negative: Normal Inspection, Tender, Calf Tenderness Integumentary: positive: Normal Color, Dry, Warm. 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 Initial vitals: Initial Vital Signs Temp Pulse Resp BP Pulse Ox 98.8 F 89 16 181/96 H 99 05/17/19 18:52 05/17/19 18:52 05/17/19 18:52 05/17/19 18:52 05/17/19 18:52 Work up: patient presents with DELEON with hemoptysis with worsening bilateral leg edema concerning for CHF exacerbation. Laboratory Tests 05/17/19 05/17/19 05/17/19 18:58 22:30 22:30 WBC 8.1 RBC 3.07 L Hgb 8.5 L Hct 26.2 L D MCV 85.4 MCH 27.7 MCHC 32.4 RDW 14.2 Plt Count 240 MPV 7.7 Absolute Neuts (auto) 5.6 Neutrophils % 69.2 Lymphocytes % 16.2 Monocytes % 9.2 Eosinophils % 5.0 H Basophils % 0.4 Nucleated RBC % 0 PT with INR INR Sodium 140 Potassium 4.7 Chloride 111 H Carbon Dioxide 23 Anion Gap 6 L BUN 31.7 H Creatinine 1.9 H Est GFR (CKD-EPI)AfAm 44.37 Est GFR (CKD-EPI)NonAf 38.28 Random Glucose 200 H Calcium 7.6 L Magnesium 2.1 Total Bilirubin 0.4 AST 16 ALT 17 Alkaline Phosphatase 124 H Creatine Kinase 258 Creatine Kinase Index 0.7 CK-MB (CK-2) 1.9 Troponin I 0.04 B-Natriuretic Peptide 24255.2 H Total Protein 6.1 L Albumin 2.7 L 10/22/19 22:30 WBC RBC Hgb Hct MCV MCH MCHC RDW Plt Count MPV Absolute Neuts (auto) Neutrophils % Lymphocytes % Monocytes % Eosinophils % Basophils % Nucleated RBC % PT with INR 12.20 INR 1.03 Sodium Potassium Chloride Carbon Dioxide Anion Gap BUN Creatinine Est GFR (CKD-EPI)AfAm Est GFR (CKD-EPI)NonAf Random Glucose Calcium Magnesium Total Bilirubin AST ALT Alkaline Phosphatase Creatine Kinase Creatine Kinase Index CK-MB (CK-2) Troponin I B-Natriuretic Peptide Total Protein Albumin CXR shows congestive changes with no focal consolidation by my read EKG shows MSR with elevation in J point on V2 which is consistent with previous EKG in 01/2019. Negative trop. Incomplete RBBB. TW flattening in V5-V6. Labs show grossly elevated BNP. JASWINDER present, however not grossly different from his baseline. Hemoglobin low consistent with anemia but not necessary for transfusion. Dispo: Will admit patient for CHF exacerbation. The patient to be admitted because of pulmonary edema that is severe that will likely require noninvasive assisted ventilation, massive skin edema in the LE bilaterally, persistence of dyspnea that persists above baseline despite ED treatment. Discharge - Discharge Information Problems reviewed: Yes Clinical Impression/Diagnosis: Chest pain, CHF (congestive heart failure), HLD (hyperlipidemia), CKD (chronic kidney disease) Condition: Guarded - Follow up/Referral - Patient Discharge Instructions - Post Discharge Activity
--- NOTE | 2019-05-17 22:15 | PDOC ---
Attending Attestation - Resident Resident Name: JorgeMichi - ED Attending Attestation I have performed the following: I have examined & evaluated the patient, The case was reviewed & discussed with the resident, I agree w/resident's findings & plan - HPI HPI: 05/17/19 22:52 see resident hpi - Physicial Exam PE: 05/17/19 22:52 agree with resident exam - Medical Decision Making 05/17/19 22:52 58-year-old male with remote history of smoking complaining of hemoptysis x2 today Plan for CTA of the chest to rule out PE versus malignancy Labs EKG Patient is well-appearing, pending CTA results will likely DC home with outpatient follow-up
[2019-05-17 22:47] LABS: BASO % 0.4 % (0-2.0); HEMATOCRIT 26.2 % (35.4-49); HEMOGLOBIN 8.5 GM/dL (11.7-16.9); LYMPH % 16.2 % (8-40); MCH 27.7 pg (25.7-33.7); MCHC 32.4 g/dl (32.0-35.9); MEAN CELL VOLUME 85.4 fl (80-96); MEAN PLT VOLUME 7.7 fl (7.5-11.1); MONO % 9.2 % (3.8-10.2); NEUT % 69.2 % (42.8-82.8); PLATELET COUNT 240 K/MM3 (134-434); RBC 3.07 M/mm3 (4.00-5.60); RDW 14.2 % (11.9-15.9); WHITE BLOOD COUNT 8.1 K/mm3 (4.0-10.0)
[2019-05-17 23:15] LABS: ALBUMIN 2.7 g/dl (3.4-5.0); BILIRUBIN,TOTAL 0.4 mg/dL (0.2-1); BLOOD UREA NITROGEN 31.7 mg/dL (7-18); CALCIUM 7.6 mg/dL (8.5-10.1); CREATININE 1.9 mg/dL (0.55-1.3); MAGNESIUM 2.1 mg/dL (1.8-2.4); POTASSIUM 4.7 mmol/L (3.5-5.1); TOT PROT 6.1 g/dl (6.4-8.2)
[2019-05-17 23:16] LABS: N-TERMINAL BNP 20348.2 pg/ml (5-125)
[2019-05-17 23:30] LABS: INR 1.03 (0.83-1.09); PROTHROMBIN TIME (PATIENT) 12.2 SEC (9.7-13.0)
[2019-05-18] MEDS ORDERED: FUROSEMIDE 40 MG/4 ML INJECTABLE VIAL IVPUSH ONE (01:50)
--- NOTE | 2019-05-18 02:24 | HP ---
Admitting History and Physical - Primary Care Physician PCP: Dr. Mueller - Admission Chief Complaint: cough/Edema/High blodd pressure History of Present Illness: 58 year old male with PMH of CAD s/p cath, CKD 3, HTN, HLD, and DM arrived to the emergency department with cough +hemoptysis and SOB. According to ED note patient had multiple coughs prior to coughing out blood, progressively worsening SOB throughout he past week with ambulation. Patient denies chest pain , fever, chills, nausea, vomiting, abdominal pain, dysuria, hematuria, and diarrhea. No recent travels and TB exposure. 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: Yes: Peripheral Neuropathy Cardiovascular: Yes: CAD, HTN, Hyperlipdemia Gastrointestinal: Yes: Constipation Renal/: Yes: Renal Inusuff Endocrine: Yes: Diabetes Mellitus - Past Surgical History Additional Past Surgical History: (left 1st toe amp, left 2nd toe partial amp) - Smoking History Smoking history: Never smoked Have you smoked in the past 12 months: No Aproximately how many cigarettes per day: 20 If you are a former smoker, when did you quit?: 13 years ago - Alcohol/Substance Use Hx Alcohol Use: No History of Substance Use: reports: None - Social History History of Recent Travel: No Home Medications - Allergies Allergies/Adverse Reactions: Allergies Allergy/AdvReac Type Severity Reaction Status Date / Time pantoprazole AdvReac Mild Vomiting Verified 02/05/19 13:55 - Home Medications Home Medications: Ambulatory Orders Amlodipine Besylate [Norvasc -] 10 mg PO DAILY tablet 02/21/19 Aspirin [ASA -] 81 mg PO DAILY tab.chew 02/21/19 Docusate Sodium [Colace -] 100 mg PO TID capsule 02/21/19 Furosemide [Lasix -] 40 mg PO DAILY tablet 02/21/19 Glipizide [Glipizide ER] 10 mg PO DAILY #60 tab.er.24 02/21/19 Metoprolol Succinate [Toprol XL -] 25 mg PO BID tab.sr.24h 02/21/19 Family Medical History Family History: Denies Review of Systems - Review of Systems Constitutional: reports: No Symptoms Eyes: reports: No Symptoms HENT: reports: No Symptoms Neck: reports: No Symptoms Cardiovascular: reports: Shortness of Breath Respiratory: reports: Cough, Hemoptysis, SOB, SOB on Exertion Genitourinary: reports: No Symptoms Breasts: reports: No Symptoms Reported Musculoskeletal: reports: No Symptoms Integumentary: reports: No Symptoms Neurological: reports: No Symptoms Endocrine: reports: No Symptoms Hematology/Lymphatic: reports: No Symptoms Psychiatric: reports: No Symptoms Physical Examination Vital Signs: Vital Signs Temperature 98.8 F 05/17/19 18:52 Pulse Rate 81 05/18/19 02:15 Respiratory Rate 16 05/17/19 18:52 Blood Pressure 181/96 H 05/17/19 18:52 O2 Sat by Pulse Oximetry (%) 99 05/18/19 02:15 Constitutional: Yes: No Distress, Calm Eyes: Yes: Conjunctiva Clear, EOM Intact HENT: Yes: Atraumatic, Normocephalic Neck: Yes: Supple, Trachea Midline Cardiovascular: Yes: Regular Rate and Rhythm Respiratory: Yes: Regular, Rales Gastrointestinal: Yes: Normal Bowel Sounds, Soft Musculoskeletal: Yes: WNL Extremities: Yes: WNL Edema: Yes Edema: LLE: 3+, RLE: 3+ Peripheral Pulses WNL: Yes Neurological: Yes: Alert, Oriented Labs: CBC, BMP 05/17/19 22:30 05/17/19 18:58 Imaging - Results Chest X-ray: Report Reviewed (no acute infiltrate noted) Other: Report Reviewed (BNP: 68911.2) Problem List - Problems (1) Acute on chronic diastolic (congestive) heart failure Code(s): I50.33 - ACUTE ON CHRONIC DIASTOLIC (CONGESTIVE) HEART FAILURE (2) CAD (coronary artery disease) Code(s): I25.10 - ATHSCL HEART DISEASE OF [place] CORONARY ARTERY W/O ANG PCTRS (3) Constipation Code(s): K59.00 - CONSTIPATION, UNSPECIFIED (4) CKD (chronic kidney disease) Code(s): N18.9 - CHRONIC KIDNEY DISEASE, UNSPECIFIED (5) Diabetes Code(s): E11.9 - TYPE 2 DIABETES MELLITUS WITHOUT COMPLICATIONS (6) HLD (hyperlipidemia) Code(s): E78.5 - HYPERLIPIDEMIA, UNSPECIFIED (7) HTN (hypertension) Code(s): I10 - ESSENTIAL (PRIMARY) HYPERTENSION (8) Anemia Code(s): D64.9 - ANEMIA, UNSPECIFIED Assessment/Plan 58 year old male with PMH of CAD s/p cath, CKD 3, HTN, HLD, and DM arrived to the emergency department with + hemoptysis and worsening SOB. # Acute CHF exacerbation - BNP: 75982.2 - Trop: 0.04 - EKG: NSR @ 92, no acute ischemic changes - given lasix 40 x1 IV push in ED - will continue lasix 40 mg daily IV push - fluid restriction - Monitor I & O - follow up cardiology in AM # HTN/HLD/ CAD - Amlodipine Besylate 10 mg PO DAILY - Metoprolol Succinate 25 mg PO BID - monitor BP closely #CKD - avoid nephro toxnis - trend renal function #Anemia -hgb: 8.5 -trend H/H #DM -continue with Glipizide 10 mg PO DAILY -follow up hgA1c in AM # Constipation -Docusate Sodium 200 mg PO Q HS Visit type - Emergency Visit Emergency Visit: Yes ED Registration Date: 05/18/19 Care time: The patient presented to the Emergency Department on the above date and was hospitalized for further evaluation of their emergent condition. - New Patient This patient is new to me today: Yes Date on this admission: 05/18/19 - Critical Care Critical Care patient: No
[2019-05-18] MEDS ORDERED: ACETAMINOPHEN 325 MG TABLET (FP) PO PRN (02:39)
[2019-05-18 06:52] LABS: HEMATOCRIT 26.7 % (35.4-49); HEMOGLOBIN 8.9 GM/dL (11.7-16.9); MCH 28.3 pg (25.7-33.7); MCHC 33.5 g/dl (32.0-35.9); MEAN CELL VOLUME 84.4 fl (80-96); MEAN PLT VOLUME 8.1 fl (7.5-11.1); PLATELET COUNT 251 K/MM3 (134-434); RBC 3.16 M/mm3 (4.00-5.60); WHITE BLOOD COUNT 8.5 K/mm3 (4.0-10.0)
[2019-05-18 07:26] LABS: CALCIUM 8.1 mg/dL (8.5-10.1); CREATININE 1.7 mg/dL (0.55-1.3); POTASSIUM 4.5 mmol/L (3.5-5.1)
--- NOTE | 2019-05-18 08:54 | HOSP ---
Subjective - Review of Symptoms Events since last encounter: Pt in ED awaiting med surg bed. Complaining that legs are more swollen Physical Examination Vital Signs: Vital Signs Temperature 97.4 F L 05/18/19 08:00 Pulse Rate 80 05/18/19 08:00 Respiratory Rate 12 05/18/19 08:00 Blood Pressure 182/102 H 05/18/19 08:00 O2 Sat by Pulse Oximetry (%) 97 05/18/19 08:00 Findings/Remarks: Constitutional: Yes: No Distress, Calm Eyes: Yes: Conjunctiva Clear, EOM Intact HENT: Yes: Atraumatic, Normocephalic Neck: Yes: Supple, Trachea Midline Cardiovascular: Yes: Regular Rate and Rhythm Respiratory: Yes: Regular, Rales Gastrointestinal: Yes: Normal Bowel Sounds, Soft Musculoskeletal: Yes: WNL Extremities: Yes: WNL Edema: Yes Edema: LLE: 3+, RLE: 3+ Peripheral Pulses WNL: Yes Neurological: Yes: Alert, Oriented Labs: Labs: CBC, BMP 05/18/19 05:20 05/18/19 05:20 Hospitalist Encounter Recommendations/Interventions: Htn Hypertension Acute on Chronic Diastolic Heart Failure Hemoptysis (resolved) Hyperlipidemia CKD c/w with lasix seen by pulmonary no need for abx, afebrile c/w home bp meds if hemoptysis persists, can obtain CT chest noncontrast BGM admit to med surg bed
--- NOTE | 2019-05-18 09:58 | EKG ---
Test Reason : Blood Pressure : / mmHG Vent. Rate : 092 BPM Atrial Rate : 092 BPM P-R Int : 170 ms QRS Dur : 098 ms QT Int : 358 ms P-R-T Axes : 029 -31 102 degrees QTc Int : 442 ms NORMAL SINUS RHYTHM POSSIBLE LEFT ATRIAL ENLARGEMENT LEFT AXIS DEVIATION INCOMPLETE RIGHT BUNDLE BRANCH BLOCK LEFT VENTRICULAR HYPERTROPHY NONSPECIFIC T WAVE ABNORMALITY ABNORMAL ECG WHEN COMPARED WITH ECG OF 05-FEB-2019 12:51, T WAVE INVERSION LESS EVIDENT IN LATERAL LEADS Confirmed by BAKARI KINGSTON, HEMA ([id number]) on 05/18/2019 9:58:38 AM Referred By: Confirmed By:HEMA VILLEGAS MD
[2019-05-18] MEDS: FUROSEMIDE 40 MG/4 ML INJECTABLE VIAL IVPUSH SCH (11:00)
[2019-05-18] MEDS: HEPARIN NA (PORCINE) 5,000 UNITS/ML 1ML VIAL SQ SCH ×2 (11:00→21:33)
[2019-05-18] MEDS: glipiZIDE-XL 10 MG TAB.ER.24 (FP) PO SCH (11:00)
[2019-05-18] MEDS: metoPROLOL SUCCINATE 25 MG TAB.SR.24H (FP) PO SCH ×2 (11:00→21:33)
[2019-05-18] MEDS: amLODIPine BESYLATE 10 MG TABLET (FP) PO SCH (11:00)
[2019-05-18] MEDS ORDERED: amLODIPine BESYLATE 5 MG TABLET (FP) ONE (11:07)
[2019-05-18] MEDS ORDERED: METOPROLOL TARTRATE 25 MG TABLET (FP) ONE (11:07)
[2019-05-18] MEDS ORDERED: CEFTRIAXONE 2 GM in DEXTROSE 5%-WATER 100 ML IVPB SCH (12:30)
[2019-05-18] MEDS ORDERED: AZITHROMYCIN IVPB 500 MG/250 ML BAG IVPB SCH (12:30)
--- NOTE | 2019-05-18 13:41 | CON.PULM ---
Consult Consult Specialty:: PULMONARY Referred by:: SIGIFREDO Santos Reason for Consultation:: r/o pneumonia - History of Present Illness Chief Complaint: shortness of breath History of Present Illness: 58yo male with h/o HTN, DM, hyperlipidemia, CAD, CKD who was admitted with worsening shortness of breath and hemoptysis. Reports some chest discomfort the day prior. Hemoptysis described as streaky, mixed with phlegm. No fevers, chills or sweats. No sick contacts or recent travel. Reports that his blood pressure has been uncontrolled recently. States his legs have been more swollen. He is a former smoker, quit 13 years ago. 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: Peripheral Neuropathy Cardio/Vascular: Yes: CAD, HTN, Hyperlipdemia Gastrointestinal: Yes: Constipation Renal/: Yes: Renal Inusuff Endocrine: Yes: Diabetes Mellitus - Alcohol/Substance Use Hx Alcohol Use: No History of Substance Use: reports: None - Smoking History Smoking history: Never smoked Have you smoked in the past 12 months: No Aproximately how many cigarettes per day: 20 If you are a former smoker, when did you quit?: 13 years ago - Social History History of Recent Travel: No Home Medications - Allergies Allergies/Adverse Reactions: Allergies Allergy/AdvReac Type Severity Reaction Status Date / Time pantoprazole AdvReac Mild Vomiting Verified 02/05/19 13:55 - Home Medications Home Medications: Ambulatory Orders Amlodipine Besylate [Norvasc -] 10 mg PO DAILY tablet 02/21/19 Aspirin [ASA -] 81 mg PO DAILY tab.chew 02/21/19 Docusate Sodium [Colace -] 100 mg PO TID capsule 02/21/19 Furosemide [Lasix -] 40 mg PO DAILY tablet 02/21/19 Glipizide [Glipizide ER] 10 mg PO DAILY #60 tab.er.24 02/21/19 Metoprolol Succinate [Toprol XL -] 25 mg PO BID tab.sr.24h 02/21/19 Review of Systems - Review of Systems Constitutional: reports: Weakness. denies: Chills, Fever Eyes: denies: Recent Change in Vision HENT: denies: Nasal Congestion, Throat Pain Neck: denies: Stiffness, Tenderness Cardiovascular: reports: Chest Pain, Edema, Shortness of Breath Respiratory: reports: Cough, Hemoptysis, SOB on Exertion. denies: Wheezing Gastrointestinal: denies: Abdominal Pain, Nausea, Vomiting Genitourinary: denies: Dysuria, Hematuria Neurological: denies: Dizziness, Headache Endocrine: denies: Unexplained Weight Loss Physical Exam Vital Sings: Vital Signs Temperature 97.4 F L 05/18/19 08:00 Pulse Rate 75 05/18/19 11:52 Respiratory Rate 20 05/18/19 11:52 Blood Pressure 178/95 H 05/18/19 11:52 O2 Sat by Pulse Oximetry (%) 99 05/18/19 11:52 Constitutional: Yes: Calm Eyes: Yes: Conjunctiva Clear, EOM Intact HENT: Yes: Atraumatic, Normocephalic Neck: Yes: Trachea Midline Cardiovascular: Yes: Regular Rate and Rhythm Respiratory: Yes: Diminished (decreased breath sounds at the bases) ...Clubbing: No Gastrointestinal: Yes: Normal Bowel Sounds, Soft. No: Tenderness Edema: Yes Labs: CBC, BMP 05/18/19 05:20 05/18/19 05:20 Imaging - Results Chest X-ray: Report Reviewed, Image Reviewed (increased interstitial markings, ? right infiltrates) Problem List - Problems (1) Acute on chronic diastolic (congestive) heart failure Code(s): I50.33 - ACUTE ON CHRONIC DIASTOLIC (CONGESTIVE) HEART FAILURE Assessment/Plan Hypertensive Urgency Acute on Chronic Diastolic Heart Failure Hemoptysis from above DM Hyperlipidemia CKD - IV lasix - monitor urine output, creatinine - daily weights - O2 to keep SpO2 >90% - BP control - monitor/quantify hemoptysis - monitor CXR with diuresis - if hemoptysis persists, can obtain CT chest noncontrast - on empiric antibiotics, less likely pneumonia, can d/c if cultures negative - DVT prophylaxis Thank you for this consult Brian Vigil MD
[2019-05-18] MEDS ORDERED: AZITHROMYCIN IVPB 500 MG/250 ML BAG IVPB ONE (15:23)
[2019-05-18] MEDS: DOCUSATE SODIUM 100 MG CAPSULE (FP) PO SCH (21:32)
[2019-05-18] MEDS: INSULIN SLIDING SCALE (NOVOLOG) 1 VIAL SQ SCH (21:33)
[2019-05-19 02:42] VITALS: BMI 36.6
[2019-05-19 06:58] LABS: BASO % 0.6 % (0-2.0); EOS % 7.5 % (0-4.5); HEMATOCRIT 25.2 % (35.4-49); HEMOGLOBIN 8.4 GM/dL (11.7-16.9); MCH 27.7 pg (25.7-33.7); MCHC 33.2 g/dl (32.0-35.9); MEAN CELL VOLUME 83.4 fl (80-96); MEAN PLT VOLUME 7.8 fl (7.5-11.1); NEUT % 66.9 % (42.8-82.8); PLATELET COUNT 266 K/MM3 (134-434); RBC 3.03 M/mm3 (4.00-5.60); RDW 13.7 % (11.9-15.9); WHITE BLOOD COUNT 7.4 K/mm3 (4.0-10.0)
[2019-05-19] MEDS: INSULIN SLIDING SCALE (NOVOLOG) 1 VIAL SQ SCH ×4 (07:17→23:00)
[2019-05-19 07:43] LABS: ALBUMIN 2.5 g/dl (3.4-5.0); BILIRUBIN,TOTAL 0.4 mg/dL (0.2-1); BLOOD UREA NITROGEN 34.4 mg/dL (7-18); CREATININE 1.8 mg/dL (0.55-1.3); MAGNESIUM 1.9 mg/dL (1.8-2.4); POTASSIUM 4.5 mmol/L (3.5-5.1); TOT PROT 5.8 g/dl (6.4-8.2)
--- NOTE | 2019-05-19 08:30 | PN ---
Progress Note, Physician Chief Complaint: states breathing is better, one episode of hemoptysis this am History of Present Illness: 58 year old male with PMH of CAD s/p cath, CKD 3, HTN, HLD, and DM arrived to the emergency department with cough +hemoptysis and SOB. According to ED note patient had multiple coughs prior to coughing out blood, progressively worsening SOB throughout he past week with ambulation. Patient denies chest pain , fever, chills, nausea, vomiting, abdominal pain, dysuria, hematuria, and diarrhea. No recent travels and TB exposure. - Current Medication List Current Medications: Active Medications Acetaminophen (Tylenol -) 650 mg PO Q6H PRN PRN Reason: PAIN LEVEL 1-5 Last Admin: 05/19/19 06:36 Dose: 650 mg Amlodipine Besylate (Norvasc -) 10 mg PO DAILY [facility] Last Admin: 05/18/19 11:00 Dose: 10 mg Docusate Sodium (Colace -) 200 mg PO HS [facility] Last Admin: 05/18/19 21:32 Dose: 200 mg Furosemide (Lasix Injection -) 40 mg IVPUSH DAILY [facility] Last Admin: 05/18/19 11:00 Dose: 40 mg Glipizide (Glucotrol Xl -) 10 mg PO DAILY [facility] Last Admin: 05/18/19 11:00 Dose: 10 mg Heparin Sodium (Porcine) (Heparin -) 5,000 unit SQ BID [facility] Last Admin: 05/18/19 21:33 Dose: 5,000 unit Insulin Aspart (Novolog Vial Sliding Scale -) 1 vial SQ [facility]; Protocol Last Admin: 05/19/19 07:17 Dose: Not Given Metoprolol Succinate (Toprol Xl -) 25 mg PO BID [facility] Last Admin: 05/18/19 21:33 Dose: 25 mg - Objective Vital Signs: Vital Signs Temperature 98 F 05/19/19 07:00 Pulse Rate 72 05/19/19 07:00 Respiratory Rate 18 05/19/19 07:00 Blood Pressure 147/71 05/19/19 07:00 O2 Sat by Pulse Oximetry (%) 98 05/18/19 22:00 Constitutional: Yes: Well Nourished, No Distress, Calm Eyes: Yes: WNL HENT: Yes: WNL, Atraumatic, Normocephalic Neck: Yes: WNL, Supple, Trachea Midline Cardiovascular: Yes: WNL, Regular Rate and Rhythm Respiratory: Yes: WNL, Regular, CTA Bilaterally, Diminished (at bases) Gastrointestinal: Yes: WNL, Normal Bowel Sounds ...Rectal Exam: Yes: Deferred Genitourinary: Yes: WNL Musculoskeletal: Yes: WNL Extremities: Yes: WNL, Amputation (left 1st toe partial amputation, 2nd toe amputation) Edema: Yes Edema: LLE: 2+, RLE: 2+ Peripheral Pulses WNL: Yes Peripheral Pulses: Left Radial: 2+, Right Radial: 2+, Left Doralis Pedis: 2+, Right Dorsalis Pedis: 2+, Left Femoral: 2+, Right Femoral: 2+ Integumentary: Yes: WNL ...Motor Strength: WNL Psychiatric: Yes: WNL Labs: CBC, BMP 05/19/19 06:15 05/19/19 06:15 INR, PTT INR 1.03 (0.83-1.09) 05/17/19 22:30 - ....Imaging Chest X-ray: Image Reviewed (fluid in fissure right) Problem List - Problems (1) CAD (coronary artery disease) Code(s): I25.10 - ATHSCL HEART DISEASE OF [place] CORONARY ARTERY W/O ANG PCTRS (2) CKD (chronic kidney disease) Assessment/Plan: avoids nephrotoxic agents monitor renal fx Code(s): N18.9 - CHRONIC KIDNEY DISEASE, UNSPECIFIED (3) Acute on chronic diastolic (congestive) heart failure Assessment/Plan: increased PNV on CXR extra lasix IV given in ed C/W lasix 40MG IV follow CXR minimize IVF Code(s): I50.33 - ACUTE ON CHRONIC DIASTOLIC (CONGESTIVE) HEART FAILURE (4) Diabetes Assessment/Plan: c/w glipizide BGM with novolog slidinng scale Code(s): E11.9 - TYPE 2 DIABETES MELLITUS WITHOUT COMPLICATIONS (5) HTN (hypertension) Assessment/Plan: c/w norvasc, toprol xl Code(s): I10 - ESSENTIAL (PRIMARY) HYPERTENSION (6) Amputated toe of left foot Assessment/Plan: followed in wound clinic Code(s): Z89.422 - ACQUIRED ABSENCE OF OTHER LEFT TOE(S) (7) Hemoptysis Assessment/Plan: humidifier O2 if hemoptysis persists, can obtain CT chest noncontrast Code(s): R04.2 - HEMOPTYSIS Visit type - Emergency Visit Emergency Visit: Yes ED Registration Date: 05/18/19 Care time: The patient presented to the Emergency Department on the above date and was hospitalized for further evaluation of their emergent condition. - New Patient This patient is new to me today: No - Critical Care Critical Care patient: No - Discharge Referral Referred to [facility] Med P.C.: No
[2019-05-19] MEDS: FUROSEMIDE 40 MG/4 ML INJECTABLE VIAL IVPUSH SCH (09:16)
[2019-05-19] MEDS: metoPROLOL SUCCINATE 25 MG TAB.SR.24H (FP) PO SCH ×2 (09:16→22:56)
[2019-05-19] MEDS: amLODIPine BESYLATE 10 MG TABLET (FP) PO SCH (09:16)
[2019-05-19] MEDS: HEPARIN NA (PORCINE) 5,000 UNITS/ML 1ML VIAL SQ SCH ×2 (09:16→22:56)
[2019-05-19] MEDS ORDERED: PT OWN MED DRAWER 7, Y5N ONE (09:18)
[2019-05-19] MEDS: glipiZIDE-XL 10 MG TAB.ER.24 (FP) PO SCH (09:20)
[2019-05-19] MEDS ORDERED: BISACODYL 10 MG SUPP.RECT PR PRN (09:42)
[2019-05-19] MEDS: POLYETHYLENE GLYCOL 3350 119 GM BTL PO SCH ×2 (10:23→22:57)
--- NOTE | 2019-05-19 10:42 | PN ---
Progress Note, Physician History of Present Illness: PULMONARY - Current Medication List Current Medications: Active Medications Acetaminophen (Tylenol -) 650 mg PO Q6H PRN PRN Reason: PAIN LEVEL 1-5 Last Admin: 05/19/19 06:36 Dose: 650 mg Amlodipine Besylate (Norvasc -) 10 mg PO DAILY [facility] Last Admin: 05/19/19 09:16 Dose: 10 mg Bisacodyl (Dulcolax Suppository -) 10 mg [place] PRN PRN PRN Reason: CONSTIPATION Docusate Sodium (Colace -) 200 mg PO HS [facility] Last Admin: 05/18/19 21:32 Dose: 200 mg Furosemide (Lasix Injection -) 40 mg IVPUSH DAILY [facility] Last Admin: 05/19/19 09:16 Dose: 40 mg Glipizide (Glucotrol Xl -) 10 mg PO DAILY [facility] Last Admin: 05/19/19 09:20 Dose: 10 mg Heparin Sodium (Porcine) (Heparin -) 5,000 unit SQ BID [facility] Last Admin: 05/19/19 09:16 Dose: 5,000 unit Insulin Aspart (Novolog Vial Sliding Scale -) 1 vial SQ ACHS [facility]; Protocol Last Admin: 05/19/19 07:17 Dose: Not Given Metoprolol Succinate (Toprol Xl -) 25 mg PO BID [facility] Last Admin: 05/19/19 09:16 Dose: 25 mg Polyethylene Glycol (Miralax (For Daily Use) -) 17 gm PO BID [facility] Last Admin: 05/19/19 10:23 Dose: 17 gm - Objective Vital Signs: Vital Signs Temperature 98.2 F 05/19/19 09:15 Pulse Rate 72 05/19/19 09:15 Respiratory Rate 18 05/19/19 09:15 Blood Pressure 152/84 05/19/19 09:15 O2 Sat by Pulse Oximetry (%) 98 05/18/19 22:00 Labs: CBC, BMP 05/19/19 06:15 05/19/19 06:15 INR, PTT INR 1.03 (0.83-1.09) 05/17/19 22:30 Assessment/Plan Problem List - Problems (1) Acute on chronic diastolic (congestive) heart failure Code(s): I50.33 - ACUTE ON CHRONIC DIASTOLIC (CONGESTIVE) HEART FAILURE Assessment/Plan Hypertensive Urgency Acute on Chronic Diastolic Heart Failure Hemoptysis from above DM Hyperlipidemia CKD - IV lasix - monitor urine output, creatinine - daily weights - O2 to keep SpO2 >90% - BP control - monitor/quantify hemoptysis - monitor CXR with diuresis - if hemoptysis persists, can obtain CT chest noncontrast - on empiric antibiotics, less likely pneumonia, can d/c if cultures negative - DVT prophylaxis DR RUST
--- NOTE | 2019-05-19 13:10 | PN ---
Progress Note (short form) - Note Progress Note: PULMONARY States breathing is better. Minimal hemoptysis. Blood pressures better controlled. Vital Signs Period Temp Pulse Resp BP Sys/Garner Pulse Ox Last 24 Hr 97.8 F-98.2 F 71-77 18-20 147-179/71-93 97-100 Gen: NAD at rest Heart: RRR Lung: decreased breath sounds at the bases Abd: soft, nontender Ext: + edema CBC, BMP 05/19/19 06:15 05/19/19 06:15 Active Medications Acetaminophen (Tylenol -) 650 mg PO Q6H PRN PRN Reason: PAIN LEVEL 1-5 Last Admin: 05/19/19 06:36 Dose: 650 mg Amlodipine Besylate (Norvasc -) 10 mg PO DAILY [facility] Last Admin: 05/19/19 09:16 Dose: 10 mg Bisacodyl (Dulcolax Suppository -) 10 mg [place] PRN PRN PRN Reason: CONSTIPATION Docusate Sodium (Colace -) 200 mg PO HS [facility] Last Admin: 05/18/19 21:32 Dose: 200 mg Furosemide (Lasix Injection -) 40 mg IVPUSH DAILY [facility] Last Admin: 05/19/19 09:16 Dose: 40 mg Glipizide (Glucotrol Xl -) 10 mg PO DAILY [facility] Last Admin: 05/19/19 09:20 Dose: 10 mg Heparin Sodium (Porcine) (Heparin -) 5,000 unit SQ BID [facility] Last Admin: 05/19/19 09:16 Dose: 5,000 unit Insulin Aspart (Novolog Vial Sliding Scale -) 1 vial SQ ACHS [facility]; Protocol Last Admin: 05/19/19 12:01 Dose: Not Given Metoprolol Succinate (Toprol Xl -) 25 mg PO BID [facility] Last Admin: 05/19/19 09:16 Dose: 25 mg Polyethylene Glycol (Miralax (For Daily Use) -) 17 gm PO BID [facility] Last Admin: 05/19/19 10:23 Dose: 17 gm A/P Hypertensive Urgency improving Acute on Chronic Diastolic Heart Failure Hemoptysis from above DM Hyperlipidemia CKD - continue lasix - monitor urine output, creatinine - daily weights - O2 to keep SpO2 >90% - BP control - monitor/quantify hemoptysis - monitor CXR with diuresis - if hemoptysis persists, can obtain CT chest noncontrast - DVT prophylaxis Problem List - Problems (1) Acute on chronic diastolic (congestive) heart failure Code(s): I50.33 - ACUTE ON CHRONIC DIASTOLIC (CONGESTIVE) HEART FAILURE
--- NOTE | 2019-05-19 16:16 | CON.CARD ---
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 Cardio/Vascular: Yes: CAD, HTN, Hyperlipdemia Gastrointestinal: Yes: Constipation Renal/: Yes: Renal Inusuff Endocrine: Yes: Diabetes Mellitus - Alcohol/Substance Use Hx Alcohol Use: No History of Substance Use: reports: None - Smoking History Smoking history: Former smoker Have you smoked in the past 12 months: No Aproximately how many cigarettes per day: 20 If you are a former smoker, when did you quit?: 13 years ago - Social History History of Recent Travel: No Home Medications - Allergies Allergies/Adverse Reactions: Allergies Allergy/AdvReac Type Severity Reaction Status Date / Time pantoprazole AdvReac Mild Vomiting Verified 02/05/19 13:55 - Home Medications Home Medications: Ambulatory Orders Amlodipine Besylate [Norvasc -] 10 mg PO DAILY tablet 02/21/19 Aspirin [ASA -] 81 mg PO DAILY tab.chew 02/21/19 Docusate Sodium [Colace -] 100 mg PO TID capsule 02/21/19 Furosemide [Lasix -] 40 mg PO DAILY tablet 02/21/19 Glipizide [Glipizide ER] 10 mg PO DAILY #60 tab.er.24 02/21/19 Metoprolol Succinate [Toprol XL -] 25 mg PO BID tab.sr.24h 02/21/19 Vital Signs: Vital Signs Temperature 98.6 F 05/19/19 14:08 Pulse Rate 71 05/19/19 14:08 Respiratory Rate 18 05/19/19 14:08 Blood Pressure 146/84 05/19/19 14:08 O2 Sat by Pulse Oximetry (%) 100 05/19/19 09:00 - Other Data Labs, Other Data: CBC, BMP 05/19/19 06:15 05/19/19 06:15 INR, PTT INR 1.03 (0.83-1.09) 05/17/19 22:30 Troponin, BNP 05/19/19 06:15 B-Natriuretic Peptide 84502.3 H Troponin, BNP 05/19/19 06:15 B-Natriuretic Peptide 96434.3 H
[2019-05-19] MEDS: DOCUSATE SODIUM 100 MG CAPSULE (FP) PO SCH (22:56)
[2019-05-20 06:30] LABS: BASO % 0.6 % (0-2.0); EOS % 3.4 % (0-4.5); HEMATOCRIT 28.3 % (35.4-49); HEMOGLOBIN 9.5 GM/dL (11.7-16.9); LYMPH % 11.1 % (8-40); MCH 28.1 pg (25.7-33.7); MCHC 33.8 g/dl (32.0-35.9); MEAN CELL VOLUME 83.1 fl (80-96); MEAN PLT VOLUME 7.6 fl (7.5-11.1); MONO % 6.3 % (3.8-10.2); NEUT % 78.6 % (42.8-82.8); PLATELET COUNT 298 K/MM3 (134-434); RDW 13.9 % (11.9-15.9); WHITE BLOOD COUNT 8.1 K/mm3 (4.0-10.0)
[2019-05-20] MEDS: INSULIN SLIDING SCALE (NOVOLOG) 1 VIAL SQ SCH ×4 (06:43→22:19)
[2019-05-20 07:27] LABS: ALBUMIN 2.6 g/dl (3.4-5.0); BILIRUBIN,TOTAL 0.2 mg/dL (0.2-1); BLOOD UREA NITROGEN 37.7 mg/dL (7-18); CREATININE 1.7 mg/dL (0.55-1.3); MAGNESIUM 1.9 mg/dL (1.8-2.4); POTASSIUM 4.7 mmol/L (3.5-5.1); TOT PROT 6.2 g/dl (6.4-8.2)
--- NOTE | 2019-05-20 08:09 | PN ---
Progress Note, Physician Chief Complaint: states breathing is better, one episode of hemoptysis this am History of Present Illness: 58 year old male with PMH of CAD s/p cath, CKD 3, HTN, HLD, and DM arrived to the emergency department with cough +hemoptysis and SOB. According to ED note patient had multiple coughs prior to coughing out blood, progressively worsening SOB throughout he past week with ambulation. Patient denies chest pain , fever, chills, nausea, vomiting, abdominal pain, dysuria, hematuria, and diarrhea. No recent travels and TB exposure. - Current Medication List Current Medications: Active Medications Acetaminophen (Tylenol -) 650 mg PO Q6H PRN PRN Reason: PAIN LEVEL 1-5 Last Admin: 05/19/19 06:36 Dose: 650 mg Amlodipine Besylate (Norvasc -) 10 mg PO DAILY [facility] Last Admin: 05/19/19 09:16 Dose: 10 mg Bisacodyl (Dulcolax Suppository -) 10 mg [place] PRN PRN PRN Reason: CONSTIPATION Docusate Sodium (Colace -) 200 mg PO HS [facility] Last Admin: 05/19/19 22:56 Dose: 200 mg Furosemide (Lasix Injection -) 40 mg IVPUSH BID@0600,1400 [facility] Glipizide (Glucotrol Xl -) 10 mg PO DAILY [facility] Last Admin: 05/19/19 09:20 Dose: 10 mg Heparin Sodium (Porcine) (Heparin -) 5,000 unit SQ BID [facility] Last Admin: 05/19/19 22:56 Dose: 5,000 unit Insulin Aspart (Novolog Vial Sliding Scale -) 1 vial SQ [facility]; Protocol Last Admin: 05/20/19 06:43 Dose: Not Given Metoprolol Succinate (Toprol Xl -) 25 mg PO BID [facility] Last Admin: 05/19/19 22:56 Dose: 25 mg Polyethylene Glycol (Miralax (For Daily Use) -) 17 gm PO BID [facility] Last Admin: 05/19/19 22:57 Dose: 17 gm - Objective Vital Signs: Vital Signs Temperature 98.3 F 05/20/19 06:00 Pulse Rate 68 05/20/19 06:00 Respiratory Rate 16 05/20/19 06:00 Blood Pressure 150/76 05/20/19 06:00 O2 Sat by Pulse Oximetry (%) 98 05/19/19 21:00 Additional Findings/Remarks: Constitutional: Yes: Well Nourished, No Distress, Calm Eyes: Yes: WNL HENT: Yes: WNL, Atraumatic, Normocephalic Neck: Yes: WNL, Supple, Trachea Midline Cardiovascular: Yes: WNL, Regular Rate and Rhythm Respiratory: Yes: WNL, Regular, CTA Bilaterally, Diminished (at bases) Gastrointestinal: Yes: WNL, Normal Bowel Sounds ...Rectal Exam: Yes: Deferred Genitourinary: Yes: WNL Musculoskeletal: Yes: WNL Extremities: Yes: WNL, Amputation (left 1st toe partial amputation, 2nd toe amputation) Edema: Yes Edema: LLE: 2+, RLE: 2+ Peripheral Pulses WNL: Yes Peripheral Pulses: Left Radial: 2+, Right Radial: 2+, Left Doralis Pedis: 2+, Right Dorsalis Pedis: 2+, Left Femoral: 2+, Right Femoral: 2+ Integumentary: Yes: WNL ...Motor Strength: WNL Psychiatric: Yes: WNL Labs: Labs: CBC, BMP 05/20/19 06:05 05/20/19 06:05 INR, PTT INR 1.03 (0.83-1.09) 05/17/19 22:30 - ....Imaging Cat Scan: Report Reviewed (Chest: ground glass opacities right lung, RUL) Problem List - Problems (1) CAD (coronary artery disease) Code(s): I25.10 - ATHSCL HEART DISEASE OF [place] CORONARY ARTERY W/O ANG PCTRS (2) CKD (chronic kidney disease) Assessment/Plan: Cr 1.7 down from 1.9 avoid nephrotoxic agents monitor renal fx Code(s): N18.9 - CHRONIC KIDNEY DISEASE, UNSPECIFIED (3) Acute on chronic diastolic (congestive) heart failure Assessment/Plan: increased PVC on CXR extra lasix IV given in ed C/W lasix 40MG IV today nad will transition to PO tmrw if remains improved Code(s): I50.33 - ACUTE ON CHRONIC DIASTOLIC (CONGESTIVE) HEART FAILURE (4) Diabetes Assessment/Plan: c/w glipizide BGM with novolog slidinng scale Code(s): E11.9 - TYPE 2 DIABETES MELLITUS WITHOUT COMPLICATIONS (5) HTN (hypertension) Assessment/Plan: c/w norvasc, toprol xl Code(s): I10 - ESSENTIAL (PRIMARY) HYPERTENSION (6) Amputated toe of left foot Assessment/Plan: followed in wound clinic Code(s): Z89.422 - ACQUIRED ABSENCE OF OTHER LEFT TOE(S) (7) Hemoptysis Assessment/Plan: CT chest with ground glass opacities c/w humidified O2 will need non contrast CT chest repeated in 4-6 weeks Code(s): R04.2 - HEMOPTYSIS (8) Glucose measurement between 50 mg/dl to 400mg/dl Code(s): [id number] - (9) Prophylactic measure Assessment/Plan: FEN no additional IVF needed,lasix IV monitor electrolytes diabetic diet DVT heparin sq early ambulation Dispo maintain as in patient full code discharge planning Code(s): Z29.9 - ENCOUNTER FOR PROPHYLACTIC MEASURES, UNSPECIFIED Visit type - Emergency Visit Emergency Visit: Yes ED Registration Date: 05/18/19 Care time: The patient presented to the Emergency Department on the above date and was hospitalized for further evaluation of their emergent condition. - New Patient This patient is new to me today: No - Critical Care Critical Care patient: No - Discharge Referral Referred to [facility] Med P.C.: No
[2019-05-20] MEDS: metoPROLOL SUCCINATE 25 MG TAB.SR.24H (FP) PO SCH ×2 (09:39→22:17)
[2019-05-20] MEDS: glipiZIDE-XL 10 MG TAB.ER.24 (FP) PO SCH (09:39)
[2019-05-20] MEDS: amLODIPine BESYLATE 10 MG TABLET (FP) PO SCH (09:39)
[2019-05-20] MEDS: FUROSEMIDE 40 MG/4 ML INJECTABLE VIAL IVPUSH SCH ×2 (09:39→14:48)
[2019-05-20] MEDS: HEPARIN NA (PORCINE) 5,000 UNITS/ML 1ML VIAL SQ SCH ×2 (09:40→22:17)
[2019-05-20] MEDS: POLYETHYLENE GLYCOL 3350 119 GM BTL PO SCH ×2 (09:41→22:18)
--- NOTE | 2019-05-20 12:03 | PN ---
Progress Note, Physician History of Present Illness: pulmonary alert,oob-chair,-sob,min hemoptysis - Current Medication List Current Medications: Active Medications Acetaminophen (Tylenol -) 650 mg PO Q6H PRN PRN Reason: PAIN LEVEL 1-5 Last Admin: 05/19/19 06:36 Dose: 650 mg Amlodipine Besylate (Norvasc -) 10 mg PO DAILY [facility] Last Admin: 05/20/19 09:39 Dose: 10 mg Bisacodyl (Dulcolax Suppository -) 10 mg [place] PRN PRN PRN Reason: CONSTIPATION Docusate Sodium (Colace -) 200 mg PO HS [facility] Last Admin: 05/19/19 22:56 Dose: 200 mg Furosemide (Lasix Injection -) 40 mg IVPUSH BID@0600,1400 [facility] Last Admin: 05/20/19 09:39 Dose: 40 mg Glipizide (Glucotrol Xl -) 10 mg PO DAILY [facility] Last Admin: 05/20/19 09:39 Dose: 10 mg Heparin Sodium (Porcine) (Heparin -) 5,000 unit SQ BID [facility] Last Admin: 05/20/19 09:40 Dose: 5,000 unit Insulin Aspart (Novolog Vial Sliding Scale -) 1 vial SQ [facility]; Protocol Last Admin: 05/20/19 11:49 Dose: 2 unit Metoprolol Succinate (Toprol Xl -) 25 mg PO BID [facility] Last Admin: 05/20/19 09:39 Dose: 25 mg Polyethylene Glycol (Miralax (For Daily Use) -) 17 gm PO BID [facility] Last Admin: 05/20/19 09:41 Dose: 17 gm - Objective Vital Signs: Vital Signs Temperature 97.6 F 05/20/19 10:00 Pulse Rate 73 05/20/19 10:00 Respiratory Rate 18 05/20/19 10:00 Blood Pressure 163/90 05/20/19 10:00 O2 Sat by Pulse Oximetry (%) 98 05/19/19 21:00 Constitutional: Yes: Well Nourished, Calm Eyes: Yes: WNL HENT: Yes: WNL Neck: Yes: WNL Cardiovascular: Yes: Regular Rate and Rhythm, S1, S2 Respiratory: Yes: CTA Bilaterally Gastrointestinal: Yes: Normal Bowel Sounds, Soft Extremities: Yes: WNL Edema: Yes Labs: CBC, BMP 05/20/19 06:05 05/20/19 06:05 INR, PTT INR 1.03 (0.83-1.09) 05/17/19 22:30 Problem List - Problems (1) Anemia Code(s): D64.9 - ANEMIA, UNSPECIFIED (2) CKD (chronic kidney disease) Code(s): N18.9 - CHRONIC KIDNEY DISEASE, UNSPECIFIED (3) Hemoptysis Code(s): R04.2 - HEMOPTYSIS (4) Acute on chronic diastolic (congestive) heart failure Code(s): I50.33 - ACUTE ON CHRONIC DIASTOLIC (CONGESTIVE) HEART FAILURE (5) Diabetes Code(s): E11.9 - TYPE 2 DIABETES MELLITUS WITHOUT COMPLICATIONS (6) HTN (hypertension) Code(s): I10 - ESSENTIAL (PRIMARY) HYPERTENSION Assessment/Plan A/P Hypertensive Urgency improving Acute on Chronic Diastolic Heart Failure improving Hemoptysis from above improving DM Hyperlipidemia CKD - continue lasix - monitor urine output, creatinine - daily weights - O2 to keep SpO2 >90% - BP control - monitor/quantify hemoptysis - CXR with diuresis - CT chest noncontrast - DVT prophylaxis Problem List - Problems (1) Acute on chronic diastolic (congestive) heart failure Code(s): I50.33 - ACUTE ON CHRONIC DIASTOLIC (CONGESTIVE) HEART FAILURE
[2019-05-20] MEDS: DOCUSATE SODIUM 100 MG CAPSULE (FP) PO SCH (22:17)
[2019-05-21] MEDS: FUROSEMIDE 40 MG/4 ML INJECTABLE VIAL IVPUSH SCH (06:21)
[2019-05-21] MEDS: INSULIN SLIDING SCALE (NOVOLOG) 1 VIAL SQ SCH ×2 (06:21→11:09)
[2019-05-21 06:38] LABS: BASO % 0.6 % (0-2.0); EOS % 7.1 % (0-4.5); HEMATOCRIT 27.5 % (35.4-49); HEMOGLOBIN 9.1 GM/dL (11.7-16.9); LYMPH % 19.5 % (8-40); MCH 27.7 pg (25.7-33.7); MCHC 33.3 g/dl (32.0-35.9); MEAN CELL VOLUME 83.3 fl (80-96); MEAN PLT VOLUME 7.9 fl (7.5-11.1); MONO % 7.7 % (3.8-10.2); NEUT % 65.1 % (42.8-82.8); PLATELET COUNT 313 K/MM3 (134-434); RDW 13.8 % (11.9-15.9)
[2019-05-21 07:05] LABS: ALBUMIN 2.6 g/dl (3.4-5.0); BILIRUBIN,TOTAL 0.3 mg/dL (0.2-1); BLOOD UREA NITROGEN 41.5 mg/dL (7-18); CALCIUM 8.4 mg/dL (8.5-10.1); CREATININE 1.8 mg/dL (0.55-1.3)
[2019-05-21] MEDS ORDERED: PT OWN MED DRAWER 7, Y5N ONE ×2 (08:44→09:01)
[2019-05-21] MEDS: amLODIPine BESYLATE 10 MG TABLET (FP) PO SCH (09:04)
[2019-05-21] MEDS: metoPROLOL SUCCINATE 25 MG TAB.SR.24H (FP) PO SCH (09:04)
[2019-05-21] MEDS: glipiZIDE-XL 10 MG TAB.ER.24 (FP) PO SCH (09:04)
[2019-05-21] MEDS: HEPARIN NA (PORCINE) 5,000 UNITS/ML 1ML VIAL SQ SCH (09:04)
[2019-05-21] MEDS: POLYETHYLENE GLYCOL 3350 119 GM BTL PO SCH (11:05)
--- NOTE | 2019-05-21 12:23 | DS ---
Physical Exam: SUBJECTIVE: Patient seen and examined 58 year old male with PMH of CAD s/p cath, CKD 3, HTN, HLD, and DM arrived to the emergency department with cough +hemoptysis and SOB. According to ED note patient had multiple coughs prior to coughing out blood, progressively worsening SOB throughout he past week with ambulation. Patient denies chest pain , fever, chills, nausea, vomiting, abdominal pain, dysuria, hematuria, and diarrhea. No recent travels and TB exposure. Medically stable for discharge home with follow uo in 4-6 weeks with pulmonary OBJECTIVE: Vital Signs Period Temp Pulse Resp BP Sys/Garner Pulse Ox Last 24 Hr 97.5 F-98.5 F 66-74 16-18 134-152/66-80 97-99 PHYSICAL EXAM Constitutional: Yes: Well Nourished, No Distress, Calm Eyes: Yes: WNL HENT: Yes: WNL, Atraumatic, Normocephalic Neck: Yes: WNL, Supple, Trachea Midline Cardiovascular: Yes: WNL, Regular Rate and Rhythm Respiratory: Yes: WNL, Regular, CTA Bilaterally, Diminished (at bases) Gastrointestinal: Yes: WNL, Normal Bowel Sounds ...Rectal Exam: Yes: Deferred Genitourinary: Yes: WNL Musculoskeletal: Yes: WNL Extremities: Yes: WNL, Amputation (left 1st toe partial amputation, 2nd toe amputation) Edema: Yes Edema: LLE: 2+, RLE: 2+ Peripheral Pulses WNL: Yes Peripheral Pulses: Left Radial: 2+, Right Radial: 2+, Left Doralis Pedis: 2+, Right Dorsalis Pedis: 2+, Left Femoral: 2+, Right Femoral: 2+ Integumentary: Yes: WNL ...Motor Strength: WNL Psychiatric: Yes: WNL LABS Laboratory Results - last 24 hr 05/20/19 05/20/19 05/21/19 16:50 22:16 05:45 WBC 7.0 RBC 3.30 L Hgb 9.1 L Hct 27.5 L MCV 83.3 MCH 27.7 MCHC 33.3 RDW 13.8 Plt Count 313 MPV 7.9 Absolute Neuts (auto) 4.5 Neutrophils % 65.1 Lymphocytes % 19.5 D Monocytes % 7.7 Eosinophils % 7.1 H D Basophils % 0.6 Nucleated RBC % 0 Sodium Potassium Chloride Carbon Dioxide Anion Gap BUN Creatinine Est GFR (CKD-EPI)AfAm Est GFR (CKD-EPI)NonAf POC Glucometer 147 225 Random Glucose Calcium Magnesium Total Bilirubin AST ALT Alkaline Phosphatase Total Protein Albumin 05/21/19 05/21/19 05/21/19 05:45 05:59 11:09 WBC RBC Hgb Hct MCV MCH MCHC RDW Plt Count MPV Absolute Neuts (auto) Neutrophils % Lymphocytes % Monocytes % Eosinophils % Basophils % Nucleated RBC % Sodium 137 Potassium 5.0 Chloride 103 Carbon Dioxide 26 Anion Gap 7 L BUN 41.5 H Creatinine 1.8 H Est GFR (CKD-EPI)AfAm 47.37 Est GFR (CKD-EPI)NonAf 40.87 POC Glucometer 118 169 Random Glucose 110 H Calcium 8.4 L Magnesium 2.0 Total Bilirubin 0.3 AST 14 L ALT 14 Alkaline Phosphatase 101 Total Protein 6.0 L Albumin 2.6 L HOSPITAL COURSE: Date of Admission:05/18/19 Date of Discharge: 05/21/19 - Problems (1) CAD (coronary artery disease) Code(s): I25.10 - ATHSCL HEART DISEASE OF [place] CORONARY ARTERY W/O ANG PCTRS (2) CKD (chronic kidney disease) Assessment/Plan: avoids nephrotoxic agents Cr stable follow with vikas coal sampler Code(s): N18.9 - CHRONIC KIDNEY DISEASE, UNSPECIFIED (3) Acute on chronic diastolic (congestive) heart failure Assessment/Plan: increased PNV on CXR extra lasix IV given CT done withnonspecific findings. C/W lasix 40MG bid on discharge Code(s): I50.33 - ACUTE ON CHRONIC DIASTOLIC (CONGESTIVE) HEART FAILURE (4) Diabetes Assessment/Plan: c/w glipizide BGM stable Code(s): E11.9 - TYPE 2 DIABETES MELLITUS WITHOUT COMPLICATIONS (5) HTN (hypertension) Assessment/Plan: c/w norvasc, toprol xl Code(s): I10 - ESSENTIAL (PRIMARY) HYPERTENSION (6) Amputated toe of left foot Assessment/Plan: continue to follow in wound clinic Code(s): Z89.422 - ACQUIRED ABSENCE OF OTHER LEFT TOE(S) (7) Hemoptysis Assessment/Plan: follwo with Dr Rust/pulmonary for repeat CT in 4-6 weeks Code(s): R04.2 - HEMOPTYSIS Medically stable for discharge home with follow uo in 4-6 weeks with pulmonary Minutes to complete discharge: 45 Discharge Summary Problems reviewed: Yes Reason For Visit: CONGESTIVE HEART FAILURE Current Active Problems Anemia (Acute) CAD (coronary artery disease) (Acute) CKD (chronic kidney disease) (Acute) Constipation (Acute) Glucose measurement between 50 mg/dl to 400mg/dl (Acute) HLD (hyperlipidemia) (Acute) Hemoptysis (Acute) CHF (congestive heart failure) (Chronic) Chest pain (Chronic) Hospital Course: Date of Admission:05/18/19 Date of Discharge: 05/21/19 - Problems (1) CAD (coronary artery disease) Code(s): I25.10 - ATHSCL HEART DISEASE OF [place] CORONARY ARTERY W/O ANG PCTRS (2) CKD (chronic kidney disease) Assessment/Plan: avoids nephrotoxic agents Cr stable follow with vikas coal sampler Code(s): N18.9 - CHRONIC KIDNEY DISEASE, UNSPECIFIED (3) Acute on chronic diastolic (congestive) heart failure Assessment/Plan: increased PNV on CXR extra lasix IV given CT done withnonspecific findings. C/W lasix 40MG bid on discharge Code(s): I50.33 - ACUTE ON CHRONIC DIASTOLIC (CONGESTIVE) HEART FAILURE (4) Diabetes Assessment/Plan: c/w glipizide BGM stable Code(s): E11.9 - TYPE 2 DIABETES MELLITUS WITHOUT COMPLICATIONS (5) HTN (hypertension) Assessment/Plan: c/w norvasc, toprol xl Code(s): I10 - ESSENTIAL (PRIMARY) HYPERTENSION (6) Amputated toe of left foot Assessment/Plan: continue to follow in wound clinic Code(s): Z89.422 - ACQUIRED ABSENCE OF OTHER LEFT TOE(S) (7) Hemoptysis Assessment/Plan: follwo with Dr Rust/pulmonary for repeat CT in 4-6 weeks Code(s): R04.2 - HEMOPTYSIS Medically stable for discharge home with follow uo in 4-6 weeks with pulmonary - Instructions Diet, Activity, Other Instructions: You were admitted for shortness of breath and coughing up blood. You lasix was increased and the shortness of breath resolved. You are no longer coughing up blood. A CT scan was done without and findings. Make an appointment with Dr RUST (PULMONARY/LUNG DOCTOR) to have a repeat Ct scan of karen [place] in 4-6 weeks. Continue taking all your previous medications. If you have pain in you side from coughing you can tylenol and hug a pillow when you cough. If you develop shortness of breath again call your primary provider or return back to the ED Referrals: Kervin Rust MD [Staff Physician] - 1 Month (call for an appointment with repeat CTscan without contrast in 4-6 wks) Amos Mueller MD [Primary Care Provider] - - Home Medications Comprehensive Discharge Medication List: Ambulatory Orders Amlodipine Besylate [Norvasc -] 10 mg PO DAILY tablet 02/21/19 Aspirin [ASA -] 81 mg PO DAILY tab.chew 02/21/19 Docusate Sodium [Colace -] 100 mg PO TID capsule 02/21/19 Furosemide [Lasix -] 40 mg PO DAILY tablet 02/21/19 Glipizide [Glipizide ER] 10 mg PO DAILY #60 tab.er.24 02/21/19 Metoprolol Succinate [Toprol XL -] 25 mg PO BID tab.sr.24h 02/21/19 Acetaminophen [Tylenol .Regular Strength -] 650 mg PO Q6H PRN tablet 05/21/19 Bisacodyl Suppository [Dulcolax Suppository -] 10 mg [place] PRN PRN supp.rect 05/21 Furosemide [Lasix -] 40 mg PO BID@0600,1400 tablet 05/21/19 Polyethylene Glycol 3350 [Miralax 119 gm Btl -] 17 gm PO BID bottle 05/21/19 Prescription Drug Monitoring Program (I-STOP) results: I-STOP not reviewed Problem List - Problems (1) CAD (coronary artery disease) Code(s): I25.10 - ATHSCL HEART DISEASE OF [place] CORONARY ARTERY W/O ANG PCTRS (2) CKD (chronic kidney disease) Code(s): N18.9 - CHRONIC KIDNEY DISEASE, UNSPECIFIED (3) Acute on chronic diastolic (congestive) heart failure Code(s): I50.33 - ACUTE ON CHRONIC DIASTOLIC (CONGESTIVE) HEART FAILURE (4) Diabetes Code(s): E11.9 - TYPE 2 DIABETES MELLITUS WITHOUT COMPLICATIONS (5) HTN (hypertension) Code(s): I10 - ESSENTIAL (PRIMARY) HYPERTENSION (6) Amputated toe of left foot Code(s): Z89.422 - ACQUIRED ABSENCE OF OTHER LEFT TOE(S) (7) Hemoptysis Code(s): R04.2 - HEMOPTYSIS (8) Glucose measurement between 50 mg/dl to 400mg/dl Code(s): [id number] - (9) Prophylactic measure Code(s): Z29.9 - ENCOUNTER FOR PROPHYLACTIC MEASURES, UNSPECIFIED This patient is new to me today: No Emergency Visit: Yes ED Registration Date: 05/18/19 Care time: The patient presented to the Emergency Department on the above date and was hospitalized for further evaluation of their emergent condition. Critical Care patient: No - Discharge Referral Referred to [facility] Med P.C.: No
--- NOTE | 2019-05-21 12:25 | PN ---
Progress Note (short form) - Note Progress Note: PULMONARY States breathing is better. No further hemoptysis. Vital Signs Period Temp Pulse Resp BP Sys/Garner Pulse Ox Last 24 Hr 97.5 F-98.5 F 66-74 16-18 134-152/66-80 97-99 Intake & Output 05/18/19 05/19/19 05/20/19 05/21/19 23:59 23:59 23:59 23:59 Intake Total 240 408 2160 270 Balance 225 299 2337 270 Weight 93.905 kg 92.533 kg 91.626 kg 92.533 kg Gen: NAD at rest Heart: RRR Lung: decreased breath sounds at the bases Abd: soft, nontender Ext: less edema CBC, BMP 05/21/19 05:45 05/21/19 05:45 Active Medications Acetaminophen (Tylenol -) 650 mg PO Q6H PRN PRN Reason: PAIN LEVEL 1-5 Last Admin: 05/19/19 06:36 Dose: 650 mg Amlodipine Besylate (Norvasc -) 10 mg PO DAILY [facility] Last Admin: 05/21/19 09:04 Dose: 10 mg Bisacodyl (Dulcolax Suppository -) 10 mg [place] PRN PRN PRN Reason: CONSTIPATION Docusate Sodium (Colace -) 200 mg PO HS [facility] Last Admin: 05/20/19 22:17 Dose: 200 mg Furosemide (Lasix -) 40 mg PO BID@0600,1400 [facility] Glipizide (Glucotrol Xl -) 10 mg PO DAILY [facility] Last Admin: 05/21/19 09:04 Dose: 10 mg Heparin Sodium (Porcine) (Heparin -) 5,000 unit SQ BID [facility] Last Admin: 05/21/19 09:04 Dose: 5,000 unit Insulin Aspart (Novolog Vial Sliding Scale -) 1 vial SQ [facility]; Protocol Last Admin: 05/21/19 11:09 Dose: 2 unit Metoprolol Succinate (Toprol Xl -) 25 mg PO BID [facility] Last Admin: 05/21/19 09:04 Dose: 25 mg Polyethylene Glycol (Miralax (For Daily Use) -) 17 gm PO BID [facility] Last Admin: 05/21/19 11:05 Dose: Not Given A/P Hypertensive Urgency improving Acute on Chronic Diastolic Heart Failure Hemoptysis from above - resolved DM Hyperlipidemia CKD - continue lasix - monitor urine output, creatinine - daily weights - O2 to keep SpO2 >90% - BP control - DVT prophylaxis Problem List - Problems (1) Acute on chronic diastolic (congestive) heart failure Code(s): I50.33 - ACUTE ON CHRONIC DIASTOLIC (CONGESTIVE) HEART FAILURE
[2019-05-21] MEDS ORDERED: FUROSEMIDE 40 MG TABLET (FP) PO SCH (14:00)
[2019-05-21 14:32] VITALS: BP 128/76; PULSE 67; TEMP 98.4
== END 2019-05-21 15:32 | disposition home or self-care (01) | DRG 194 ==
LOC: JER 18:19 → JERBED 05-18 01:53 → J4S 05-18 20:34
PROVIDERS: ADMIT Internal Medicine; ATTEND Nurse Practitioner Acute Care
DX: I13.0 Hypertensive heart and chronic kidney disease with heart failure and stage 1 through stage 4 chronic kidney disease, or unspecified chronic kidney disease (principal); I25.10 Atherosclerotic heart disease of native coronary artery without angina pectoris; E78.5 Hyperlipidemia, unspecified; I16.0 Hypertensive urgency; K59.09 Other constipation; I45.10 Unspecified right bundle-branch block; R04.2 Hemoptysis; E11.42 Type 2 diabetes mellitus with diabetic polyneuropathy; D64.9 Anemia, unspecified; E11.22 Type 2 diabetes mellitus with diabetic chronic kidney disease; N18.3 Chronic kidney disease, stage 3 (moderate); I50.33 Acute on chronic diastolic (congestive) heart failure; Z95.5 Presence of coronary angioplasty implant and graft; Z89.422 Acquired absence of other left toe(s)
CPT/HCPCS: 36415; 71045-TC-FY; 71046-TC-FY; 71250-TC; 80048; 80053; 80061; 82550; 82553; 82962; 83036; 83721; 83735; 83880; 84484; 85025; 85027; 85610; 93005; 93010; 99285-25; J1644

== ENCOUNTER 2019-08-30 13:48 | Inpatient (IN) | payer OTHER ==
--- NOTE | 2019-08-30 14:44 | PDOC ---
Rapid Medical Evaluation Chief Complaint: Edema Time Seen by Provider: 08/30/19 14:38 Medical Evaluation: Allergies Allergy/AdvReac Type Severity Reaction Status Date / Time pantoprazole AdvReac Mild Vomiting Verified 08/30/19 14:38 Vital Signs Temp Pulse Resp BP Pulse Ox 97.8 F 82 18 167/92 98 08/30/19 14:34 08/30/19 14:34 08/30/19 14:34 08/30/19 14:34 08/30/19 14:34 08/30/19 14:42 Pt c/o: lower ext edema, abd dist, feels sob, hx renal insuff and chf, diabetes Pt on brief exam: 2-3 + pitting edema Pt ordered for: labs, ekg, urine pt to proceed to the ED Discharge Disposition - Diagnosis CHF (congestive heart failure), CKD (chronic kidney disease), Cough, Anasarca associated with disorder of kidney Edema Qualifiers: Edema type: generalized Qualified Code(s): R60.1 - Generalized edema - Discharge Dispostion Condition at time of disposition: Stable - Referrals - Patient Instructions - Post Discharge Activity
[2019-08-30 16:53] LABS: EOS % 4.8 % (0-4.5); HEMATOCRIT 27.5 % (35.4-49); HEMOGLOBIN 8.7 GM/dL (11.7-16.9); MCH 26.2 pg (25.7-33.7); MCHC 31.7 g/dl (32.0-35.9); MEAN CELL VOLUME 82.6 fl (80-96); NEUT % 69.2 % (42.8-82.8); PLATELET COUNT 368 K/MM3 (134-434); RBC 3.33 M/mm3 (4.00-5.60); RDW 15.4 % (11.9-15.9); WHITE BLOOD COUNT 8.2 K/mm3 (4.0-10.0)
[2019-08-30 17:00] LABS: EPI CELLS 3.6 /HPF (0-5/HPF); HYALINE CASTS 6 /lpf (0-8); URINE APPEARANCE CLEAR; URINE BACTERIA 9.8 /hpf (NEGATIVE); URINE BILIRUBIN NEGATIVE (NEGATIVE); URINE COLOR YELLOW; URINE GLUCOSE (UA) 1+ (NEGATIVE); URINE KETONE NEGATIVE (NEGATIVE); URINE LEUK ESTERASE NEGATIVE (NEGATIVE); URINE NITRITE NEGATIVE (NEGATIVE); URINE PROTEIN 3+ (NEGATIVE); URINE RBC 9 /hpf (0-4); URINE UROBILINOGEN 0.2 mg/dL (0.2-1.0); URINE WBC 7 /hpf (0-5)
[2019-08-30 17:55] LABS: ALBUMIN 2.1 g/dl (3.4-5.0); BILIRUBIN,TOTAL 0.2 mg/dL (0.2-1); BLOOD UREA NITROGEN 34.9 mg/dL (7-18); N-TERMINAL BNP 48622.2 pg/ml (5-125); POTASSIUM 5.4 mmol/L (3.5-5.1); TOT PROT 5.7 g/dl (6.4-8.2)
--- NOTE | 2019-08-30 18:34 | PDOC ---
History of Present Illness - General Chief Complaint: Edema Stated Complaint: LEG PAIN Time Seen by Provider: 08/30/19 14:38 History Source: Patient, [employer] Hand Used (swedish int#[id number]) Exam Limitations: Clinical Condition - History of Present Illness Initial Comments: 08/30/19 18:54 Patient with past medical history of CKD, rkn-lubvhjr-ahyhlitqh diabetes, hypertension and CHF admitted 3 months ago for CHF exacerbation and discharged home on Lasix presented with complaint over 1 month history of persistent cough , shortness of breath, dyspnea on exertion and whole body swelling with increased swelling to bilateral feet and left hand. Patient reported finished taking his Lasix 40 mg twice daily medication a week ago which was helping a little bit but symptoms has been worsening for the past week. Denies fever, chills, chest pain. Patient on amlodipine and Norvasc for hypertension and glipizide for diabetes and Lasix 40 mg for CHF Is this a multiple visit Asthma Patient?: No Timing/Duration: other Past History - Past Medical History Allergies/Adverse Reactions: Allergies Allergy/AdvReac Type Severity Reaction Status Date / Time pantoprazole AdvReac Mild Vomiting Verified 08/30/19 14:38 Home Medications: Ambulatory Orders Amlodipine Besylate [Norvasc -] 10 mg PO DAILY tablet 02/21/19 Aspirin [ASA -] 81 mg PO DAILY tab.chew 02/21/19 Docusate Sodium [Colace -] 100 mg PO TID capsule 02/21/19 Furosemide [Lasix -] 40 mg PO DAILY tablet 02/21/19 Glipizide [Glipizide ER] 10 mg PO DAILY #60 tab.er.24 02/21/19 Metoprolol Succinate [Toprol XL -] 25 mg PO BID tab.sr.24h 02/21/19 Acetaminophen [Tylenol .Regular Strength -] 650 mg PO Q6H PRN tablet 05/21/19 Bisacodyl Suppository [Dulcolax Suppository -] 10 mg NM PRN PRN supp.rect 05/21 Furosemide [Lasix -] 40 mg PO BID@0600,1400 tablet 05/21/19 Polyethylene Glycol 3350 [Miralax 119 gm Btl -] 17 gm PO BID bottle 05/21/19 Cardiac Disorders: Yes (CAD) COPD: No Diabetes: Yes Disorders: No HTN: Yes Hypercholesterolemia: Yes - Surgical History Cardiac Surgery: Yes (cardiac cath) Orthopedic Surgery: Yes (left 1st toe amp, left 2nd toe partial amp) - Psycho Social/Smoking Cessation Hx Smoking History: Never smoked Have you smoked in the past 12 months: No Number of Cigarettes Smoked Daily: 20 If you are a former smoker, when did you quit?: 13 years ago Hx Alcohol Use: No Drug/Substance Use Hx: No Substance Use Type: None Hx Substance Use Treatment: No Review of Systems - Review of Systems Able to Perform ROS?: Yes Is the patient limited [place] proficient: No Constitutional: No: Chills, Fever, Malaise HEENTM: No: Symptoms Reported, See HPI, Eye Pain, Blurred Vision, Tearing, Recent change in vision, Double Vision, Cataracts, Ear Pain, Ocular Prothesis, Ear Discharge, Nose Pain, Nose Congestion, Tinnitus, Nose Bleeding, Hearing Loss , Throat Pain, Throat Swelling, Mouth Pain, Dental Problems, Difficulty Swallowing, Mouth Swelling, Other Respiratory: Yes: Symptoms reported, See HPI, Cough, Shortness of Breath, SOB with Exertion. No: Orthopnea, SOB at Rest, Stridor, Wheezing, Productive cough , Hemoptysis, Other Cardiac (ROS): No: Symptoms Reported, See HPI, Chest Pain, Edema, Irregular Heart Rate, Lightheadedness, Palpitations, Syncope, Chest Tightness, Other ABD/GI: No: Symptoms Reported, See HPI, Nausea, Vomiting : No: Symptoms Reported Musculoskeletal: No: Symptoms Reported Integumentary: Yes: Symptoms Reported, See HPI, Other (swelling to b/l LE,UE) Neurological: No: Symptoms reported, Dizziness All Other Systems: Reviewed and Negative *Physical Exam - Vital Signs Last Vital Signs Temp Pulse Resp BP Pulse Ox 97.8 F 82 18 167/92 98 08/30/19 14:34 08/30/19 14:34 08/30/19 14:34 08/30/19 14:34 08/30/19 14:34 - Physical Exam 08/30/19 18:57 GENERAL: Well developed, well nourished. Awake and alert. No acute distress. HEENT: Normocephalic, atraumatic. PERRLA, EOMI. No conjunctival pallor. Sclera are non-icteric. Moist mucous membranes. Oropharynx is clear. NECK: Supple. Full ROM. CARDIOVASCULAR: Regular rate and rhythm. No murmurs, rubs, or gallops. Distal pulses are 2+ and symmetric. PULMONARY: No evidence of respiratory distress. Lungs clear to auscultation bilaterally. No wheezing, rales or rhonchi. ABDOMINAL: Soft. Non-tender. Mild abdominal distention. No rebound or guarding. No organomegaly. Normoactive bowel sounds. MUSCULOSKELETAL Normal range of motion at all joints. SKIN: Warm and dry. Normal capillary refill. 4+ pitting edema to bilateral lower extremities. 2+ edema to left upper extremity. NEUROLOGICAL: Alert, awake, appropriate. Gait is normal without ataxia. PSYCHIATRIC: Cooperative. Good eye contact. Appropriate mood General Appearance: Yes: Nourished, Appropriately Dressed. No: Apparent Distress ED Treatment Course - LABORATORY CBC & Chemistry Diagram: 08/30/19 15:40 08/30/19 15:45 - ADDITIONAL ORDERS Additional order review: Laboratory Results 08/30/19 08/30/19 15:45 15:40 Sodium 139 Potassium 5.4 H Chloride 115 H Carbon Dioxide 17 L Anion Gap 8 BUN 34.9 H Creatinine 2.0 H Est GFR (CKD-EPI)AfAm 41.41 Est GFR (CKD-EPI)NonAf 35.73 Random Glucose 174 H Calcium 8.0 L Total Bilirubin 0.2 AST 20 ALT 25 Alkaline Phosphatase 214 H B-Natriuretic Peptide 02145.2 H Total Protein 5.7 L Albumin 2.1 L Urine Color Yellow Urine Appearance Clear Urine pH 6.0 Ur Specific [place] 1.018 Urine Protein 3+ H Urine Glucose (UA) 1+ H Urine Ketones Negative Urine Blood 1+ H Urine Nitrite Negative Urine Bilirubin Negative Urine Urobilinogen 0.2 Ur Leukocyte Esterase Negative Urine WBC (Auto) 7 Urine RBC (Auto) 9 Urine Casts (Auto) 6 U Epithel Cells (Auto) 3.6 Urine Bacteria (Auto) 9.8 08/30/19 15:40 RBC 3.33 L MCV 82.6 MCHC 31.7 L RDW 15.4 D MPV 8.0 Neutrophils % 69.2 Lymphocytes % 16.0 Monocytes % 9.0 Eosinophils % 4.8 H Basophils % 1.0 Medical Decision Making - Medical Decision Making 08/30/19 18:56 Patient with past medical history of CKD, rmr-zgijcho-ivbqugogn diabetes, hypertension and CHF admitted 3 months ago for CHF exacerbation and discharged home on Lasix presented with complaint over 1 month history of persistent cough , shortness of breath, dyspnea on exertion and whole body swelling with increased swelling to bilateral feet and left hand. Patient reported finished taking his Lasix 40 mg twice daily medication a week ago which was helping a little bit but symptoms has been worsening for the past week. Denies fever, chills, chest pain. Patient on amlodipine and Norvasc for hypertension and glipizide for diabetes and Lasix 40 mg for CHF Exam significant for 4+ pitting edema to bilateral lower extremity with 2+ edema to left upper extremity. Patient in no acute distress. Lungs clear to auscultation bilateral. Labs done from triage shows BNP of 48,000. Patient symptoms likely CHF exacerbation. Patient will be admitted for CHF exacerbation management. Chest x-ray ordered to rule out pleural effusion. Will order Lasix 40 mg IV now 08/30/19 19:30 Patient signed out to medicine team Resident to accept admission to Dr. Caal Discharge - Discharge Information Problems reviewed: Yes Clinical Impression/Diagnosis: Cough, Anasarca associated with disorder of kidney Edema Qualifiers: Edema type: generalized Qualified Code(s): R60.1 - Generalized edema CHF (congestive heart failure) Qualifiers: Heart failure type: unspecified Heart failure chronicity: chronic Qualified Code(s): I50.9 - Heart failure, unspecified CKD (chronic kidney disease) Qualifiers: Chronic kidney disease stage: unspecified stage Qualified Code(s): N18.9 - Chronic kidney disease, unspecified Condition: Stable - Admission Yes - Follow up/Referral - Patient Discharge Instructions - Post Discharge Activity
[2019-08-30] MEDS ORDERED: FUROSEMIDE 40 MG/4 ML INJECTABLE VIAL IVPUSH ONE (18:51)
[2019-08-30] MEDS ORDERED: FUROSEMIDE 40 MG/4 ML INJECTABLE VIAL ONE (19:14)
--- NOTE | 2019-08-30 21:18 | PN ---
Teaching Attending Note Name of Resident: Derick Reyes ATTENDING PHYSICIAN STATEMENT I saw and evaluated the patient. I reviewed the resident's note and discussed the case with the resident. I agree with the resident's findings and plan as documented. SUBJECTIVE: This is a 59 year old man with a history of HTN, hyperlipidemia, CAD , chronic diastolic heart failure, type 2 DM, stage 3 CKD, BPH with bladder outlet obstruction, 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 He had been taking Lasix until about 1-2 weeks ago. OBJECTIVE: Vital Signs Period Temp Pulse Resp BP Sys/Garner Pulse Ox Last 24 Hr 97.8 F 82 18 167/92 98 HEART: S1S2, RRR LUNGS: Clear ABDOMEN: Obese, soft, non-tender, non-distended, normal BS EXTREMITIES: (+) edema of LUE, 3+ edema of both legs Laboratory Tests 08/30/19 08/30/19 08/30/19 15:40 15:40 15:45 WBC 8.2 RBC 3.33 L Hgb 8.7 L Hct 27.5 L MCV 82.6 MCH 26.2 MCHC 31.7 L RDW 15.4 D Plt Count 368 MPV 8.0 Absolute Neuts (auto) 5.7 Neutrophils % 69.2 Lymphocytes % 16.0 Monocytes % 9.0 Eosinophils % 4.8 H Basophils % 1.0 Nucleated RBC % 0 Sodium 139 Potassium 5.4 H Chloride 115 H Carbon Dioxide 17 L Anion Gap 8 BUN 34.9 H Creatinine 2.0 H Est GFR (CKD-EPI)AfAm 41.41 Est GFR (CKD-EPI)NonAf 35.73 Random Glucose 174 H Calcium 8.0 L Total Bilirubin 0.2 AST 20 ALT 25 Alkaline Phosphatase 214 H B-Natriuretic Peptide 94939.2 H Total Protein 5.7 L Albumin 2.1 L Urine Color Yellow Urine Appearance Clear Urine pH 6.0 Ur Specific [place] 1.018 Urine Protein 3+ H Urine Glucose (UA) 1+ H Urine Ketones Negative Urine Blood 1+ H Urine Nitrite Negative Urine Bilirubin Negative Urine Urobilinogen 0.2 Ur Leukocyte Esterase Negative Urine WBC (Auto) 7 Urine RBC (Auto) 9 Urine Casts (Auto) 6 U Epithel Cells (Auto) 3.6 Urine Bacteria (Auto) 9.8 Home Medications Medication Instructions Recorded Amlodipine Besylate [Norvasc -] 10 mg PO DAILY tablet 02/21/19 Aspirin [ASA -] 81 mg PO DAILY tab.chew 02/21/19 Docusate Sodium [Colace -] 100 mg PO TID capsule 02/21/19 Furosemide [Lasix -] 40 mg PO DAILY tablet 02/21/19 Glipizide [Glipizide ER] 10 mg PO DAILY #60 tab.er.24 02/21/19 Metoprolol Succinate [Toprol XL -] 25 mg PO BID tab.sr.24h 02/21/19 Acetaminophen [Tylenol .Regular 650 mg PO Q6H PRN tablet 05/21/19 Strength -] Bisacodyl Suppository [Dulcolax 10 mg [place] PRN PRN supp.rect 05/21/19 Suppository -] Furosemide [Lasix -] 40 mg PO BID@0600,1400 tablet 05/21/19 Polyethylene Glycol 3350 [Miralax 17 gm PO BID bottle 05/21/19 119 gm Btl -] ASSESSMENT AND PLAN: This is a 59 year old man with a history of HTN, hyperlipidemia, CAD, chronic diastolic heart failure, type 2 DM, stage 3 CKD, BPH with bladder outlet obstruction, 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 1. Acute on chronic diastolic heart failure - Lasix IV - Monitor I&O, weight 2. Hyperkalemia - Monitor lytes with diuresis 3. Stage 3 CKD - Creatinine 2.0, baseline 1.7-1.8 - Monitor creatinine with diuresis 4. Anemia - Previously diagnosed with iron deficiency - Hgb unchanged from 04/2019 - Check stool for occult blood - Check iron studies 5. Hematuria, proteinuria - UA shows 1+ blood with 9 RBC, 3+ protein - Renal US - Nephrology consult 6. HTN - Continue Norvasc, Toprol XL, Lasix 7. Hyperlipidemia - On no medication 8. CAD - Continue Toprol XL - Continue aspirin if no evidence of GI bleeding 9. Type 2 DM - Hold glipizide - Fingersticks with Novolog sliding scale 10. BPH 11. Obesity with BMI 39.0
[2019-08-31] MEDS ORDERED: BISACODYL 10 MG SUPP.RECT RC PRN (05:01)
[2019-08-31] MEDS ORDERED: ACETAMINOPHEN 325 MG TABLET (FP) PO PRN (05:01)
--- NOTE | 2019-08-31 05:03 | HP ---
CHIEF COMPLAINT: SOB with worsening B/L arm and leg swelling for the past 3 months, associated with a dry cough for the past 6 months. PCP: Maxime James HISTORY OF PRESENT ILLNESS: [place] speaking male, [employer] service used. 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 He presented to the ER with complaints of SOB with worsening B/L arm and leg swelling for the past 3 months, associated with a dry cough for the past 6 months. He was admitted at [facility] 05/17 to 05/21 when he presented with complaints of cough, LE edema, and hemoptysis. At the time he was treated with Lasix. CT chest showed ground glass opacities within the R lung, most marked within the upper lobe, that have developed since 02/27/2018. After he was discharged, he reported improvement in his symptoms for a few weeks, until they returned 3 months ago. The SOB is positional, and as per the patient it is easier for him to breathe when he is lying down. He endorses PND on several occasions, and uses 1 pillow to sleep. He is able to walk 1 block before needing to rest, compared to 3-4 blocks before these symptoms began. He does not need a cane or any assistance to ambulate. He has noticed worsening swelling in his legs, arms, as well as abdomen, around the same level of swelling he noticed when he was admitted in May 14. He has had a cough since February-March, which was initially productive with blood tinged sputum, but he endorses a dry cough for the past 3 months, without any blood. He endorses intermittent dizziness as well as constant dysruia for several weeks , but denies any fevers, chills, light headedness, chest pain, palpitations, nausea, vomiting, diarrhea, constipation, urinary urgency, or hematuria. He denies recent travel, or sick contacts. He refused the flu shot this season. 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 He has not been taking any of his home emdications for HTN, DM, or his Lasix for the past 2 weeks because he felt that they were not helping. ER course was notable for: (1) H/H 8.7/27.5 (2) BUN/Cr 34.9/2.0 (3) BNP 48.6k, given Lasix Recent Travel: denies PAST MEDICAL HISTORY: As listed in HPI PAST SURGICAL HISTORY: 2 toes amputated, last one in January Social History: Smoking: Quit 14 years ago, 1ppd for 40 years prior to that Alcohol: Quit 14 years ago, drank heavily before that (unable to quantify) Drugs: denies Allergies pantoprazole Adverse Reaction (Mild, Verified 08/30/19 14:38) Vomiting Acute kidney injury HOME MEDICATIONS: Home Medications Medication Instructions Recorded Amlodipine Besylate [Norvasc -] 10 mg PO DAILY tablet 02/21/19 Aspirin [ASA -] 81 mg PO DAILY tab.chew 02/21/19 Docusate Sodium [Colace -] 100 mg PO TID capsule 02/21/19 Furosemide [Lasix -] 40 mg PO DAILY tablet 02/21/19 Glipizide [Glipizide ER] 10 mg PO DAILY #60 tab.er.24 02/21/19 Metoprolol Succinate [Toprol XL -] 25 mg PO BID tab.sr.24h 02/21/19 Acetaminophen [Tylenol .Regular 650 mg PO Q6H PRN tablet 05/21/19 Strength -] Bisacodyl Suppository [Dulcolax 10 mg [place] PRN PRN supp.rect 05/21/19 Suppository -] Furosemide [Lasix -] 40 mg PO BID@0600,1400 tablet 05/21/19 Polyethylene Glycol 3350 [Miralax 17 gm PO BID bottle 05/21/19 119 gm Btl -] REVIEW OF SYSTEMS CONSTITUTIONAL: Absent: fever, chills, diaphoresis, generalized weakness, malaise, loss of appetite, weight change HEENT: Absent: rhinorrhea, nasal congestion, throat pain, throat swelling, difficulty swallowing, mouth swelling, ear pain, eye pain, visual changes CARDIOVASCULAR: peripheral edema Absent: chest pain, syncope, palpitations, irregular heart rate, lightheadedness , peripheral edema RESPIRATORY: shortness of breath, dyspnea with exertion cough Absent: cough, shortness of breath, dyspnea with exertion, orthopnea, wheezing, stridor, hemoptysis GASTROINTESTINAL: Absent: abdominal pain, abdominal distension, nausea, vomiting, diarrhea, constipation, melena, hematochezia GENITOURINARY: dysuria Absent: dysuria, frequency, urgency, hesitancy, hematuria, flank pain, genital pain MUSCULOSKELETAL: Absent: myalgia, arthralgia, joint swelling, back pain, neck pain SKIN: Absent: rash, itching, pallor HEMATOLOGIC/IMMUNOLOGIC: Absent: easy bleeding, easy bruising, lymphadenopathy, frequent infections ENDOCRINE: Absent: unexplained weight gain, unexplained weight loss, heat intolerance, cold intolerance NEUROLOGIC: Absent: headache, focal weakness or paresthesias, dizziness, unsteady gait, seizure, mental status changes, bladder or bowel incontinence PSYCHIATRIC: Absent: anxiety, depression, suicidal or homicidal ideation, hallucinations. PHYSICAL EXAMINATION Vital Signs - 24 hr 08/30/19 14:34 Temperature 97.8 F Pulse Rate 82 Respiratory 18 Rate Blood Pressure 167/92 O2 Sat by Pulse 98 Oximetry (%) GENERAL: Awake, alert, and fully oriented, in no acute distress. HEAD: Normal with no signs of trauma. EYES: Pupils equal, round and reactive to light, extraocular movements intact, sclera anicteric, conjunctiva clear. No lid lag. EARS, NOSE, THROAT: Ears normal, nares patent, oropharynx clear without exudates. Moist mucous membranes. NECK: Normal range of motion, supple without lymphadenopathy, JVD, or masses. LUNGS: Decreased Breath sounds B/L , clear to auscultation bilaterally. No wheezes, and no crackles. No accessory muscle use. HEART: Regular rate and rhythm, normal S1 and S2 without murmur, rub or gallop. ABDOMEN: Soft, mild RLQ tenderness, GABRIEL performed, no hemorrhoids or masses, normal tone, empty rectal vault, stol noticed on glove, no blood noticed, FOBT sent MUSCULOSKELETAL: Normal range of motion at all joints. No bony deformities or tenderness. No CVA tenderness. UPPER EXTREMITIES: 2+ pulses, warm, well-perfused. No cyanosis. No clubbing. No peripheral edema. LOWER EXTREMITIES: 2+ pitting edema NEUROLOGICAL: Cranial nerves II-XII intact. Normal speech PSYCHIATRIC: Cooperative. Good eye contact. Appropriate mood and affect. SKIN: Warm, dry, normal turgor, no rashes or lesions noted, normal capillary refill. Laboratory Results - last 24 hr 08/30/19 08/30/19 08/30/19 15:40 15:40 15:45 WBC 8.2 RBC 3.33 L Hgb 8.7 L Hct 27.5 L MCV 82.6 MCH 26.2 MCHC 31.7 L RDW 15.4 D Plt Count 368 MPV 8.0 Absolute Neuts (auto) 5.7 Neutrophils % 69.2 Lymphocytes % 16.0 Monocytes % 9.0 Eosinophils % 4.8 H Basophils % 1.0 Nucleated RBC % 0 Sodium 139 Potassium 5.4 H Chloride 115 H Carbon Dioxide 17 L Anion Gap 8 BUN 34.9 H Creatinine 2.0 H Est GFR (CKD-EPI)AfAm 41.41 Est GFR (CKD-EPI)NonAf 35.73 Random Glucose 174 H Calcium 8.0 L Total Bilirubin 0.2 AST 20 ALT 25 Alkaline Phosphatase 214 H B-Natriuretic Peptide 84847.2 H Total Protein 5.7 L Albumin 2.1 L Urine Color Yellow Urine Appearance Clear Urine pH 6.0 Ur Specific [place] 1.018 Urine Protein 3+ H Urine Glucose (UA) 1+ H Urine Ketones Negative Urine Blood 1+ H Urine Nitrite Negative Urine Bilirubin Negative Urine Urobilinogen 0.2 Ur Leukocyte Esterase Negative Urine WBC (Auto) 7 Urine RBC (Auto) 9 Urine Casts (Auto) 6 U Epithel Cells (Auto) 3.6 Urine Bacteria (Auto) 9.8 ASSESSMENT/PLAN: 59 year old male with PMH of CKD, DM, HTN, CHF, BPH, and HLD. He presented to the ER with complaints of SOB with worsening B/L arm and leg swelling for the past 3 months, associated with a dry cough for the past 6 months. #CHF exacerbation - Based on SOB, LE edema, elevated BNP, and evidence on imaging - CXR: no infiltrates or effusion, but pulmonary vascular changes seen B/L as well as cardiomegaly - Lasix 40mg IV started - I/O as well as weight monitoring - Cardio consulted - Echo ordered, last one in January 2019 showed borderline low LVSF, EF 50-55, RVSF normal #Anemia - H/H 8.7/27.5, Hg 9.5 during last admission - FOBT ordered - Type and screen ordered, would transfuse if Hg drops below 8 - Fe studies ordered, would start on Venofer if Fe is low #CKD/JASWINDER - Baseline Cr around 1.6-1.7, currently 2.0 - May be 2/2 to volume overload, will diurese with Lasix and monitor - Nephro consulted - Abdominal US ordered #Hematuria - Associated with dysuria, 1+ blood 3+ protein and 1+ glucose on UA - Urine cx ordered - Renal US ordered #Hx of DM - BGM and ISS ACHS ordered - Glucose was 174 on admission, has been without home Glipizide for 2 weeks #Elevated ALP - 214, normal LFTS with slight RLQ tenderness - Abdominal US ordered #Hx of HTN - Continue home meds #FEN - Monitor K, currently 5.4, may improve with Lasix - Low Na and DM diet started, hold if FOBT positive #DVT - SCDs, will continue chemical AC once GI bleeding ruled out Visit type - Emergency Visit Emergency Visit: Yes ED Registration Date: 08/30/19 Care time: The patient presented to the Emergency Department on the above date and was hospitalized for further evaluation of their emergent condition. - New Patient This patient is new to me today: Yes Date on this admission: 09/02/19 - Critical Care Critical Care patient: No ATTENDING PHYSICIAN STATEMENT I saw and evaluated the patient. I reviewed the resident's note and discussed the case with the resident. I agree with the resident's findings and plan as documented. SUBJECTIVE: OBJECTIVE: ASSESSMENT AND PLAN:
[2019-08-31] MEDS ORDERED: amLODIPine BESYLATE 10 MG TABLET (FP) PO ONE (06:54)
[2019-08-31] MEDS ORDERED: amLODIPine BESYLATE 5 MG TABLET (FP) ONE (07:24)
[2019-08-31] MEDS: INSULIN SLIDING SCALE (NOVOLOG) 1 VIAL SQ SCH ×4 (07:24→21:40)
[2019-08-31 07:58] LABS: BASO % 1.1 % (0-2.0); EOS % 8.5 % (0-4.5); HEMATOCRIT 28.3 % (35.4-49); LYMPH % 17.5 % (8-40); MCH 25.8 pg (25.7-33.7); MCHC 31.8 g/dl (32.0-35.9); MEAN CELL VOLUME 81.2 fl (80-96); MEAN PLT VOLUME 7.5 fl (7.5-11.1); MONO % 9.9 % (3.8-10.2); PLATELET COUNT 371 K/MM3 (134-434); RBC 3.49 M/mm3 (4.00-5.60); WHITE BLOOD COUNT 6.8 K/mm3 (4.0-10.0)
[2019-08-31] MEDS ORDERED: FUROSEMIDE 40 MG/4 ML INJECTABLE VIAL ONE (09:25)
[2019-08-31] MEDS: FUROSEMIDE 40 MG/4 ML INJECTABLE VIAL IVPUSH SCH (09:25)
[2019-08-31] MEDS: metoPROLOL SUCCINATE 25 MG TAB.SR.24H (FP) PO SCH ×2 (09:25→21:41)
[2019-08-31] MEDS ORDERED: TOPIRAMATE 25 MG TABLET (FP) ONE (09:25)
[2019-08-31] MEDS ORDERED: ENOXAPARIN NA (PORCINE) 40 MG/0.4 ML DISP.SYRIN SQ SCH (10:00)
--- NOTE | 2019-08-31 11:39 | EKG ---
Test Reason : Blood Pressure : / mmHG Vent. Rate : 080 BPM Atrial Rate : 080 BPM P-R Int : 188 ms QRS Dur : 094 ms QT Int : 372 ms P-R-T Axes : 026 -29 232 degrees QTc Int : 429 ms NORMAL SINUS RHYTHM INCOMPLETE RIGHT BUNDLE BRANCH BLOCK T WAVE ABNORMALITY, CONSIDER INFEROLATERAL ISCHEMIA ABNORMAL ECG Confirmed by German Gaviria MD ([id number]) on 08/31/2019 11:38:49 AM Referred By: Confirmed By:German Gaviria MD
--- NOTE | 2019-08-31 12:09 | CON.CARD ---
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 Worsening dyspnea and edema x 3 months, endorses recent noncompliance with meds including lasix. No chest pain, palps, dizziness. 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 Gastrointestinal: Yes: Constipation Renal/: Yes: BPH Endocrine: Yes: Diabetes Mellitus - Alcohol/Substance Use Hx Alcohol Use: No - Smoking History Smoking history: Never smoked Have you smoked in the past 12 months: No If you are a former smoker, when did you quit?: 12 years ago Allergies Allergy/AdvReac Type Severity Reaction Status Date / Time pantoprazole AdvReac Mild Vomiting Verified 08/30/19 14:38 Home Medications Medication Instructions Recorded Amlodipine Besylate [Norvasc -] 10 mg PO DAILY tablet 02/21/19 Aspirin [ASA -] 81 mg PO DAILY tab.chew 02/21/19 Docusate Sodium [Colace -] 100 mg PO TID capsule 02/21/19 Furosemide [Lasix -] 40 mg PO DAILY tablet 02/21/19 Glipizide [Glipizide ER] 10 mg PO DAILY #60 tab.er.24 02/21/19 Metoprolol Succinate [Toprol XL -] 25 mg PO BID tab.sr.24h 02/21/19 Acetaminophen [Tylenol .Regular 650 mg PO Q6H PRN tablet 05/21/19 Strength -] Bisacodyl Suppository [Dulcolax 10 mg MD PRN PRN supp.rect 05/21/19 Suppository -] Furosemide [Lasix -] 40 mg PO BID@0600,1400 tablet 05/21/19 Polyethylene Glycol 3350 [Miralax 17 gm PO BID bottle 05/21/19 119 gm Btl -] Family Disease History - Family Disease History Family History: Unremarkable Review of Systems - Review of Systems Constitutional: reports: No Symptoms Eyes: reports: No Symptoms HENT: reports: No Symptoms Neck: reports: No Symptoms Cardiovascular: reports: Chest Pain Respiratory: reports: No Symptoms Gastrointestinal: reports: No Symptoms Musculoskeletal: reports: No Symptoms Neurological: reports: Dizziness Endocrine: reports: No Symptoms Psychiatric: reports: No Symptoms Vital Signs Period Temp Pulse Resp BP Sys/Garner Pulse Ox Last 24 Hr 98.3 F-99.1 F 80-93 16-18 163-165/85-89 98-99 Constitutional: Yes: Well Nourished, No Distress, Calm Eyes: Yes: Conjunctiva Clear, EOM Intact HENT: Yes: Atraumatic, Normocephalic Neck: Yes: Supple, no JVD Respiratory: +bibasilar rales Gastrointestinal: Yes: Normal Bowel Sounds, Soft Cardiovascular: Yes: Regular Rate and Rhythm Heart Sounds: Yes: S1, S2 Edema: 1+ pitting edema bilaterally Peripheral Pulses: 2+ Left Doralis Pedis, 2+ Right Dorsalis Pedis Neurological: Yes: Alert, Oriented Psychiatric: Yes: Alert, Oriented Laboratory Last Values WBC 6.8 K/mm3 (4.0-10.0) 08/31/19 07:18 RBC 3.49 M/mm3 (4.00-5.60) L 08/31/19 07:18 Hgb 9.0 GM/dL (11.7-16.9) L 08/31/19 07:18 Hct 28.3 % (35.4-49) L 08/31/19 07:18 MCV 81.2 fl (80-96) 08/31/19 07:18 MCH 25.8 pg (25.7-33.7) 08/31/19 07:18 MCHC 31.8 g/dl (32.0-35.9) L 08/31/19 07:18 RDW 15.0 % (11.9-15.9) 08/31/19 07:18 Plt Count 371 K/MM3 (134-434) 08/31/19 07:18 MPV 7.5 fl (7.5-11.1) 08/31/19 07:18 Absolute Neuts (auto) 4.3 K/mm3 (1.5-8.0) 08/31/19 07:18 Neutrophils % 63.0 % (42.8-82.8) 08/31/19 07:18 Lymphocytes % 17.5 % (8-40) 08/31/19 07:18 Monocytes % 9.9 % (3.8-10.2) 08/31/19 07:18 Eosinophils % 8.5 % (0-4.5) H 08/31/19 07:18 Basophils % 1.1 % (0-2.0) 08/31/19 07:18 Nucleated RBC % 0 % (0-0) 08/31/19 07:18 Sodium 139 mmol/L (136-145) 08/30/19 15:45 Potassium 5.4 mmol/L (3.5-5.1) H 08/30/19 15:45 Chloride 115 mmol/L (98-107) H 08/30/19 15:45 Carbon Dioxide 17 mmol/L (21-32) L 08/30/19 15:45 Anion Gap 8 MMOL/L (8-16) 08/30/19 15:45 BUN 34.9 mg/dL (7-18) H 08/30/19 15:45 Creatinine 2.0 mg/dL (0.55-1.3) H 08/30/19 15:45 Est GFR (CKD-EPI)AfAm 41.41 08/30/19 15:45 Est GFR (CKD-EPI)NonAf 35.73 08/30/19 15:45 POC Glucometer 139 UNITS (80-120) 08/31/19 11:02 Random Glucose 174 mg/dL (74-106) H 08/30/19 15:45 Calcium 8.0 mg/dL (8.5-10.1) L 08/30/19 15:45 Total Bilirubin 0.2 mg/dL (0.2-1) 08/30/19 15:45 AST 20 U/L (15-37) 08/30/19 15:45 ALT 25 U/L (13-61) 08/30/19 15:45 Alkaline Phosphatase 214 U/L (45-117) H 08/30/19 15:45 B-Natriuretic Peptide 87775.2 pg/ml (5-125) H 08/30/19 15:45 Total Protein 5.7 g/dl (6.4-8.2) L 08/30/19 15:45 Albumin 2.1 g/dl (3.4-5.0) L 08/30/19 15:45 Urine Color Yellow 08/30/19 15:40 Urine Appearance Clear 08/30/19 15:40 Urine pH 6.0 (5.0-8.0) 08/30/19 15:40 Ur Specific [place] 1.018 (1.010-1.035) 08/30/19 15:40 Urine Protein 3+ (NEGATIVE) H 08/30/19 15:40 Urine Glucose (UA) 1+ (NEGATIVE) H 08/30/19 15:40 Urine Ketones Negative (NEGATIVE) 08/30/19 15:40 Urine Blood 1+ (NEGATIVE) H 08/30/19 15:40 Urine Nitrite Negative (NEGATIVE) 08/30/19 15:40 Urine Bilirubin Negative (NEGATIVE) 08/30/19 15:40 Urine Urobilinogen 0.2 mg/dL (0.2-1.0) 08/30/19 15:40 Ur Leukocyte Esterase Negative (NEGATIVE) 08/30/19 15:40 Urine WBC (Auto) 7 /hpf (0-5) 08/30/19 15:40 Urine RBC (Auto) 9 /hpf (0-4) 08/30/19 15:40 Urine Casts (Auto) 6 /lpf (0-8) 08/30/19 15:40 U Epithel Cells (Auto) 3.6 /HPF (0-5/HPF) 08/30/19 15:40 Urine Bacteria (Auto) 9.8 /hpf (NEGATIVE) 08/30/19 15:40 Stool Occult Blood Negative (NEGATIVE) 08/31/19 06:00 Blood Type O POSITIVE 08/31/19 07:18 Antibody Screen Negative 08/31/19 07:18 Assessment/Plan echo 02/26/18 borderline low LV function, grade I diastolic dysfunction, mild to mod MR, mild TR, RV nl size and function, mild hypokinesis of inf wall Nuclear pharm stress 03/01/18 sm to mod zone of inferior wall reversible defect from base to apex consistent with mild intensity ischemia. 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 monitor daily weights, Cr, lytes JASWINDER - monitor Cr with diuresis CAD - nonobstructive on cath 02/2018 - continue statin, aspirin HTN - continue amlodipine HLD - cont statin
--- NOTE | 2019-08-31 12:29 | ECHO ---
Name: EBONIE WILKERSON Exam:Adult Echocardiogram Study Date: 08/31/2019 11:38 AM Age: 59 yrs Reason For Study: CHF Height: 63 in Weight: 220 lb BSA: 2.0 m2 MMode/2D Measurements & Calculations IVSd: 1.2 cm Ao root diam: 2.8 cm LVIDd: 5.6 cm LA dimension: 4.0 cm LVIDs: 4.6 cm LVPWd: 1.7 cm LVPWs: 1.8 cm EDV(Teich): 154.7 ml ESV(Teich): 97.8 ml LVOT diam: 2.1 cm LAV (MOD-bp): 91.6 ml TAPSE: 1.8 cm RV S Hubert: 10.3 cm/sec Doppler Measurements & Calculations MV E max hubert: 111.0 cm/sec Ao V2 max: 169.1 cm/sec MV A max hubert: 77.1 cm/sec Ao max P.4 mmHg MV E/A: 1.4 LIZ(V,D): 1.6 cm2 MV dec time: 0.14 sec LV V1 max P.5 mmHg MR max hubert: 544.2 cm/sec LV V1 max: 79.5 cm/sec MR max P.5 mmHg TR max hubert: 300.8 cm/sec PA V2 max: 106.9 cm/sec TR max P.2 mmHg PA max P.6 mmHg Med Peak E' Hubert: 4.0 cm/sec Med E/e': 27.6 Lat Peak E' Hubert: 5.9 cm/sec Lat E/e': 18.9 Procedure A complete two-dimensional transthoracic echocardiogram was performed (2D, M-mode, Doppler and color flow Doppler). Left Ventricle The left ventricle is borderline dilated. There is mild concentric left ventricular hypertrophy. Left ventricular systolic function is severely reduced. Ejection Fraction = 30%. The transmitral spectral Doppler flow pattern is suggestive of impaired LV relaxation. There is severe global hypokinesis of the left ventricle. Right Ventricle The right ventricle is normal in size and function. Atria Normal left and right atrial size and function. Mitral Valve There is trivial mitral valve thickening. There is mild mitral annular calcification. There is mild m itral regurgitation. Tricuspid Valve The tricuspid valve is normal in structure and function. There is mild to moderate tricuspid regurgit ation. Right ventricular systolic pressure is elevated at 42 mmhg. Assuming the RA pressure is 5 mmHg. Aortic Valve There is trivial aortic valve thickening. Trace aortic regurgitation. Pulmonic Valve The pulmonic valve is normal in structure and function. Great Vessels The aortic root is normal size. Pericardium/Pleura There is no pericardial effusion. There is no pleural effusion. Interpretation Summary The left ventricle is borderline dilated. There is mild concentric left ventricular hypertrophy. There is severe global hypokinesis of the left ventricle. Left ventricular systolic function is severely reduced. Ejection Fraction = 30%. There is trivial mitral valve thickening. There is mild mitral annular calcification. There is mild mitral regurgitation. There is mild to moderate tricuspid regurgitation. Right ventricular systolic pressure is elevated at 42 mmhg. There is trivial aortic valve thickening. Trace aortic regurgitation. MD German Gaviria 08/31/2019 12:28 PM
--- NOTE | 2019-08-31 12:59 | CONSULT ---
Consult - text type - Consultation Consultation Note: Renal Consult for CKD and fluid overload This is a 59 year old gentleman with history of CKD stage 3, hypertension, DM type 2, BPH, hyperlipidemia who presented from home with shortness of breath, leg and arm swelling and admitted for diastolic HF. Pt was seen by our service on prior admissions. Seen and examined in the ER. He reports feeling a little better. Denies any overt SOB at rest. Denies any chest pain or pressure. Denies excessive salt intake. No Abd pain, N/V/D, frequency or urgency. Making urine. Denies any NSAID use. PMhx: as above allergies: Pantoprazole Family Hx: NC Social Hx: No T/A/D ROS: as per HPI, all other pertinent ros negative Home Medications Medication Instructions Recorded Amlodipine Besylate [Norvasc -] 10 mg PO DAILY tablet 02/21/19 Aspirin [ASA -] 81 mg PO DAILY tab.chew 02/21/19 Docusate Sodium [Colace -] 100 mg PO TID capsule 02/21/19 Furosemide [Lasix -] 40 mg PO DAILY tablet 02/21/19 Glipizide [Glipizide ER] 10 mg PO DAILY #60 tab.er.24 02/21/19 Metoprolol Succinate [Toprol XL -] 25 mg PO BID tab.sr.24h 02/21/19 Acetaminophen [Tylenol .Regular 650 mg PO Q6H PRN tablet 05/21/19 Strength -] Bisacodyl Suppository [Dulcolax 10 mg [place] PRN PRN supp.rect 05/21/19 Suppository -] Furosemide [Lasix -] 40 mg PO BID@0600,1400 tablet 05/21/19 Polyethylene Glycol 3350 [Miralax 17 gm PO BID bottle 05/21/19 119 gm Btl -] Vital Signs Temperature 97.6 F 08/31/19 12:24 Pulse Rate 74 08/31/19 12:24 Respiratory Rate 14 08/31/19 12:24 Blood Pressure 170/98 08/31/19 12:24 O2 Sat by Pulse Oximetry (%) 98 08/31/19 12:24 Intake & Output 08/28/19 08/29/19 08/30/19 08/31/19 23:59 23:59 23:59 23:59 Weight 99.79 kg NAD awake and alert RRR CTA, no rales or wheeze soft NT/ND ++ upper and lower extremity edema no cyanosis or clubbing no bladder distension no focal neurologic defects CBC, BMP 08/31/19 07:18 08/30/19 15:45 Current Medications Acetaminophen (Tylenol -) 650 mg PO Q6H PRN PRN Reason: PAIN LEVEL 1-5 Amlodipine Besylate (Norvasc -) 10 mg PO DAILY [facility] Bisacodyl (Dulcolax Suppository -) 10 mg RC PRN PRN PRN Reason: CONSTIPATION Furosemide (Lasix Injection -) 40 mg IVPUSH DAILY [facility] Last Admin: 08/31/19 09:25 Dose: 40 mg Heparin Sodium (Porcine) (Heparin -) 5,000 unit SQ TID [facility] Insulin Aspart (Novolog Vial Sliding Scale -) 1 vial SQ ACHS [facility]; Protocol Last Admin: 08/31/19 11:23 Dose: Not Given Metoprolol Succinate (Toprol Xl -) 25 mg PO BID [facility] Last Admin: 08/31/19 09:25 Dose: 25 mg 59 year old gentleman with history of CKD stage 3, hypertension, DM type 2, BPH, hyperlipidemia who presented from home with shortness of breath, leg and arm swelling and admitted for diastolic HF. 1. Anasarca 2. Diastolic HF 3. CKD stage 3 4. Metabolic acidosis 5. Anemia 6. Proteinuria Fluid overload likely multifactorial from diastolic HF/CKD/Proteinuria Check Urine protein to creatinine ratio to establish if pt has nephrotic range proteinuria Check PK, Hepatitis, HIV, RPR Agree with IV Lasix, can consider BID dosing Low K diet Start Sodium bicarb 650mg Daily Check iron stuides and stool for occult blood Trend renal function and electrolytes daily Thank you Rufino Rudolph DO
--- NOTE | 2019-08-31 13:32 | PN ---
Physical Exam: SUBJECTIVE: Patient seen and examined. says his sob is much better this morning. denies chest pain, nausea, vomiting, fevers, chills. admits to not taking his medications in over 2 weeks. OBJECTIVE: Vital Signs Period Temp Pulse Resp BP Sys/Garner Pulse Ox Last 24 Hr 97.6 F-97.8 F 74-82 14-20 167-186/92-100 98-100 GENERAL: a/o x 3 HEAD: Normal with no signs of trauma. EYES: PERRL, conjunctiva clear ENT: oropharynx clear without exudates, moist mucous membranes. NECK: supple. LUNGS: Breath sounds equal, bibasilar rales HEART: Regular rate and rhythm, S1, S2 without murmur, rub or gallop. ABDOMEN: obese, Soft, nontender, nondistended, normoactive bowel sounds, edematous EXTREMITIES: 2+ pulses, warm, well-perfused, +pitting edema b/l to the thighs NEUROLOGICAL: Cranial nerves II through XII grossly intact Laboratory Results - last 24 hr 08/30/19 08/30/19 08/30/19 15:40 15:40 15:45 WBC 8.2 RBC 3.33 L Hgb 8.7 L Hct 27.5 L MCV 82.6 MCH 26.2 MCHC 31.7 L RDW 15.4 D Plt Count 368 MPV 8.0 Absolute Neuts (auto) 5.7 Neutrophils % 69.2 Lymphocytes % 16.0 Monocytes % 9.0 Eosinophils % 4.8 H Basophils % 1.0 Nucleated RBC % 0 Sodium 139 Potassium 5.4 H Chloride 115 H Carbon Dioxide 17 L Anion Gap 8 BUN 34.9 H Creatinine 2.0 H Est GFR (CKD-EPI)AfAm 41.41 Est GFR (CKD-EPI)NonAf 35.73 POC Glucometer Random Glucose 174 H Calcium 8.0 L Total Bilirubin 0.2 AST 20 ALT 25 Alkaline Phosphatase 214 H B-Natriuretic Peptide 04016.2 H Total Protein 5.7 L Albumin 2.1 L Urine Color Yellow Urine Appearance Clear Urine pH 6.0 Ur Specific [place] 1.018 Urine Protein 3+ H Urine Glucose (UA) 1+ H Urine Ketones Negative Urine Blood 1+ H Urine Nitrite Negative Urine Bilirubin Negative Urine Urobilinogen 0.2 Ur Leukocyte Esterase Negative Urine WBC (Auto) 7 Urine RBC (Auto) 9 Urine Casts (Auto) 6 U Epithel Cells (Auto) 3.6 Urine Bacteria (Auto) 9.8 Stool Occult Blood Blood Type Antibody Screen 08/31/19 08/31/19 08/31/19 06:00 07:18 07:18 WBC 6.8 RBC 3.49 L Hgb 9.0 L Hct 28.3 L MCV 81.2 MCH 25.8 MCHC 31.8 L RDW 15.0 Plt Count 371 MPV 7.5 Absolute Neuts (auto) 4.3 Neutrophils % 63.0 Lymphocytes % 17.5 Monocytes % 9.9 Eosinophils % 8.5 H Basophils % 1.1 Nucleated RBC % 0 Sodium Potassium Chloride Carbon Dioxide Anion Gap BUN Creatinine Est GFR (CKD-EPI)AfAm Est GFR (CKD-EPI)NonAf POC Glucometer Random Glucose Calcium Total Bilirubin AST ALT Alkaline Phosphatase B-Natriuretic Peptide Total Protein Albumin Urine Color Urine Appearance Urine pH Ur Specific [place] Urine Protein Urine Glucose (UA) Urine Ketones Urine Blood Urine Nitrite Urine Bilirubin Urine Urobilinogen Ur Leukocyte Esterase Urine WBC (Auto) Urine RBC (Auto) Urine Casts (Auto) U Epithel Cells (Auto) Urine Bacteria (Auto) Stool Occult Blood Negative Blood Type O POSITIVE Antibody Screen Negative 08/31/19 08/31/19 07:21 11:02 WBC RBC Hgb Hct MCV MCH MCHC RDW Plt Count MPV Absolute Neuts (auto) Neutrophils % Lymphocytes % Monocytes % Eosinophils % Basophils % Nucleated RBC % Sodium Potassium Chloride Carbon Dioxide Anion Gap BUN Creatinine Est GFR (CKD-EPI)AfAm Est GFR (CKD-EPI)NonAf POC Glucometer 111 139 Random Glucose Calcium Total Bilirubin AST ALT Alkaline Phosphatase B-Natriuretic Peptide Total Protein Albumin Urine Color Urine Appearance Urine pH Ur Specific [place] Urine Protein Urine Glucose (UA) Urine Ketones Urine Blood Urine Nitrite Urine Bilirubin Urine Urobilinogen Ur Leukocyte Esterase Urine WBC (Auto) Urine RBC (Auto) Urine Casts (Auto) U Epithel Cells (Auto) Urine Bacteria (Auto) Stool Occult Blood Blood Type Antibody Screen Active Medications Generic Name Dose Route Start Last Admin Trade Name Freq PRN Reason Stop Dose Admin Acetaminophen 650 mg 08/31/19 05:01 Tylenol - PO Q6H PRN PAIN LEVEL 1-5 Amlodipine Besylate 10 mg 09/01/19 10:00 Norvasc - PO DAILY CELESTINO Bisacodyl 10 mg 08/31/19 05:01 Dulcolax Suppository - RC PRN PRN CONSTIPATION Furosemide 40 mg 08/31/19 10:00 08/31/19 09:25 Lasix Injection - IVPUSH 40 mg DAILY CELESTINO Administration Heparin Sodium (Porcine) 5,000 unit 08/31/19 14:00 Heparin - SQ TID [facility]LESTINO Insulin Aspart 1 vial 08/31/19 07:00 08/31/19 11:23 Novolog Vial Sliding Scale - SQ Not Given ACHS [facility] Protocol Metoprolol Succinate 25 mg 08/31/19 10:00 08/31/19 09:25 Toprol Xl - PO 25 mg BID CELESTINO Administration ASSESSMENT/PLAN: This is a 59 year old man with a history of HTN, hyperlipidemia, CAD, chronic diastolic heart failure, type 2 DM, stage 3 CKD, BPH with bladder outlet obstruction, 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 #Acute on Systolic and Diastolic CHF exacerbation. -cont IV lasix 40mg, will consider increasing Lasix to BID if needed -Monitor I&O, weight -echo with EF 30%, with severe LV global hypokinesis -FU CMP -cardio on board #Hyperkalemia -Monitor lytes with diuresis -FU repeat CMP #Stage 3 CKD -Creatinine 2.0, baseline 1.7-1.8 -Monitor creatinine with diuresis #Anemia -Previously diagnosed with iron deficiency -Hgb unchanged from 04/2019 -Fu iron studies #Hematuria, proteinuria - UA shows 1+ blood with 9 RBC, 3+ protein - Renal US results noted - Nephrology consult: Check Urine protein to creatinine ratio to establish if pt has nephrotic range proteinuria -Check PK, Hepatitis, HIV, RPR #HTN - Continue Norvasc, Toprol XL, Lasix #Hyperlipidemia - On no medication #CAD - Continue Toprol XL - Continue aspirin if no evidence of GI bleeding #Type 2 DM - Hold glipizide - Fingersticks with Novolog sliding scale #BPH #Obesity with BMI 39.0 #FEN -fluid restriction -monitor -sodium diet Visit type - Emergency Visit Emergency Visit: Yes ED Registration Date: 08/30/19 Care time: The patient presented to the Emergency Department on the above date and was hospitalized for further evaluation of their emergent condition. - New Patient This patient is new to me today: Yes Date on this admission: 08/31/19 - Critical Care Critical Care patient: No ATTENDING PHYSICIAN STATEMENT I saw and evaluated the patient. I reviewed the resident's note and discussed the case with the resident. I agree with the resident's findings and plan as documented. SUBJECTIVE: OBJECTIVE: ASSESSMENT AND PLAN:
[2019-08-31] MEDS: HEPARIN NA (PORCINE) 5,000 UNITS/ML 1ML VIAL SQ SCH ×2 (15:13→21:40)
--- NOTE | 2019-08-31 15:54 | PN ---
Teaching Attending Note Name of Resident: Jareth Martel ATTENDING PHYSICIAN STATEMENT I saw and evaluated the patient. I reviewed the resident's note and discussed the case with the resident. I agree with the resident's findings and plan as documented. SUBJECTIVE: seen and examined at bedside. feeling better. states he is sob with minimal exertion, denies cp OBJECTIVE: Vital Signs - 24 hr 08/31/19 08/31/19 08/31/19 06:49 07:10 12:24 Temperature 97.6 F 97.8 F 97.6 F Pulse Rate Pulse Rate [ 74 77 Apical] Pulse Rate [ 74 Left Radial] Respiratory 19 20 14 Rate Blood Pressure Blood Pressure 182/100 H 186/97 H 170/98 [Right Arm] O2 Sat by Pulse 100 100 98 Oximetry (%) 08/31/19 08/31/19 14:02 15:15 Temperature 98 F 97.6 F Pulse Rate 80 Pulse Rate [ Apical] Pulse Rate [ 77 Left Radial] Respiratory 20 20 Rate Blood Pressure 144/82 Blood Pressure 139/93 [Right Arm] O2 Sat by Pulse 100 97 Oximetry (%) PE: Gen: NAD Neck: no JVD Lungs: bibasilar crackles, unlabored CVS: s1s2, rrr Abdomen: slightly distended, nabs, soft and nt Ext: 3+ pitting edema bilaterally Current Medications Acetaminophen (Tylenol -) 650 mg PO Q6H PRN PRN Reason: PAIN LEVEL 1-5 Amlodipine Besylate (Norvasc -) 10 mg PO DAILY [facility] Bisacodyl (Dulcolax Suppository -) 10 mg RC PRN PRN PRN Reason: CONSTIPATION Furosemide (Lasix Injection -) 40 mg IVPUSH DAILY [facility] Last Admin: 08/31/19 09:25 Dose: 40 mg Heparin Sodium (Porcine) (Heparin -) 5,000 unit SQ TID [facility] Last Admin: 08/31/19 15:13 Dose: 5,000 unit Insulin Aspart (Novolog Vial Sliding Scale -) 1 vial SQ ACHS [facility]; Protocol Last Admin: 08/31/19 11:23 Dose: Not Given Metoprolol Succinate (Toprol Xl -) 25 mg PO BID [facility] Last Admin: 08/31/19 09:25 Dose: 25 mg Laboratory Results - last 24 hr 08/30/19 08/30/19 08/30/19 15:40 15:40 15:45 WBC 8.2 RBC 3.33 L Hgb 8.7 L Hct 27.5 L MCV 82.6 MCH 26.2 MCHC 31.7 L RDW 15.4 D Plt Count 368 MPV 8.0 Absolute Neuts (auto) 5.7 Neutrophils % 69.2 Lymphocytes % 16.0 Monocytes % 9.0 Eosinophils % 4.8 H Basophils % 1.0 Nucleated RBC % 0 Sodium 139 Potassium 5.4 H Chloride 115 H Carbon Dioxide 17 L Anion Gap 8 BUN 34.9 H Creatinine 2.0 H Est GFR (CKD-EPI)AfAm 41.41 Est GFR (CKD-EPI)NonAf 35.73 POC Glucometer Random Glucose 174 H Calcium 8.0 L Total Bilirubin 0.2 AST 20 ALT 25 Alkaline Phosphatase 214 H B-Natriuretic Peptide 32358.2 H Total Protein 5.7 L Albumin 2.1 L Urine Color Yellow Urine Appearance Clear Urine pH 6.0 Ur Specific [place] 1.018 Urine Protein 3+ H Urine Glucose (UA) 1+ H Urine Ketones Negative Urine Blood 1+ H Urine Nitrite Negative Urine Bilirubin Negative Urine Urobilinogen 0.2 Ur Leukocyte Esterase Negative Urine WBC (Auto) 7 Urine RBC (Auto) 9 Urine Casts (Auto) 6 U Epithel Cells (Auto) 3.6 Urine Bacteria (Auto) 9.8 Stool Occult Blood Blood Type Antibody Screen 08/31/19 08/31/19 08/31/19 06:00 07:18 07:18 WBC 6.8 RBC 3.49 L Hgb 9.0 L Hct 28.3 L MCV 81.2 MCH 25.8 MCHC 31.8 L RDW 15.0 Plt Count 371 MPV 7.5 Absolute Neuts (auto) 4.3 Neutrophils % 63.0 Lymphocytes % 17.5 Monocytes % 9.9 Eosinophils % 8.5 H Basophils % 1.1 Nucleated RBC % 0 Sodium Potassium Chloride Carbon Dioxide Anion Gap BUN Creatinine Est GFR (CKD-EPI)AfAm Est GFR (CKD-EPI)NonAf POC Glucometer Random Glucose Calcium Total Bilirubin AST ALT Alkaline Phosphatase B-Natriuretic Peptide Total Protein Albumin Urine Color Urine Appearance Urine pH Ur Specific [place] Urine Protein Urine Glucose (UA) Urine Ketones Urine Blood Urine Nitrite Urine Bilirubin Urine Urobilinogen Ur Leukocyte Esterase Urine WBC (Auto) Urine RBC (Auto) Urine Casts (Auto) U Epithel Cells (Auto) Urine Bacteria (Auto) Stool Occult Blood Negative Blood Type O POSITIVE Antibody Screen Negative 08/31/19 08/31/19 08/31/19 07:21 11:02 15:38 WBC RBC Hgb Hct MCV MCH MCHC RDW Plt Count MPV Absolute Neuts (auto) Neutrophils % Lymphocytes % Monocytes % Eosinophils % Basophils % Nucleated RBC % Sodium Potassium Chloride Carbon Dioxide Anion Gap BUN Creatinine Est GFR (CKD-EPI)AfAm Est GFR (CKD-EPI)NonAf POC Glucometer 111 139 140 Random Glucose Calcium Total Bilirubin AST ALT Alkaline Phosphatase B-Natriuretic Peptide Total Protein Albumin Urine Color Urine Appearance Urine pH Ur Specific [place] Urine Protein Urine Glucose (UA) Urine Ketones Urine Blood Urine Nitrite Urine Bilirubin Urine Urobilinogen Ur Leukocyte Esterase Urine WBC (Auto) Urine RBC (Auto) Urine Casts (Auto) U Epithel Cells (Auto) Urine Bacteria (Auto) Stool Occult Blood Blood Type Antibody Screen all imaging reports reviewed echo 02/26/18 borderline low LV function, grade I diastolic dysfunction, mild to mod MR, mild TR, RV nl size and function, mild hypokinesis of inf wall echo 11/2018 mod conc LVH, nl LV function, RV nl, tr MR, tr TR, mild pulm HTN, tr AR ASSESSMENT AND PLAN: 59M h/o stage 3 CKD, DM, HTN, HLD, s/p L great toe amputation and partial 2nd toe amputation p/w toe ulcer and bilateral lower extremity swelling 1) Acute on chronic CHF exacerbation -2dechocardiogram report reviewed, EF 30% with severe LV global hypokinesis -will need cath this admission -check trop and repeat labs -IV lasix -i/os and daily weights -na and fluid restriction 2) AOCKD -f/u serologies -low K diet -baseline creat around 1.7 -monitor renal function with diuresis -urine cx ordered, followup -renal following 3) CAD -cw bb, asa 4) DM2 -holding orals -iss for supp coverage 5) HTN -cw norvasc and bb 6) HLD -not on meds 7) BPH-stable 8) JULIENNE-stable
[2019-08-31 18:18] LABS: ALBUMIN 2.1 g/dl (3.4-5.0); BILIRUBIN,TOTAL 0.4 mg/dL (0.2-1); BLOOD UREA NITROGEN 29.4 mg/dL (7-18); CALCIUM 8.1 mg/dL (8.5-10.1); CREATININE 1.9 mg/dL (0.55-1.3); POTASSIUM 4.8 mmol/L (3.5-5.1); TOT PROT 5.9 g/dl (6.4-8.2)
[2019-09-01] MEDS: INSULIN SLIDING SCALE (NOVOLOG) 1 VIAL SQ SCH ×4 (06:07→21:15)
[2019-09-01] MEDS: HEPARIN NA (PORCINE) 5,000 UNITS/ML 1ML VIAL SQ SCH ×3 (06:07→21:15)
[2019-09-01 06:56] LABS: BASO % 0.3 % (0-2.0); HEMATOCRIT 25.8 % (35.4-49); HEMOGLOBIN 8.4 GM/dL (11.7-16.9); LYMPH % 19.2 % (8-40); MCH 26.5 pg (25.7-33.7); MCHC 32.7 g/dl (32.0-35.9); MEAN CELL VOLUME 80.9 fl (80-96); MEAN PLT VOLUME 7.7 fl (7.5-11.1); MONO % 8.7 % (3.8-10.2); NEUT % 64.8 % (42.8-82.8); PLATELET COUNT 319 K/MM3 (134-434); RBC 3.19 M/mm3 (4.00-5.60); RDW 14.6 % (11.9-15.9); WHITE BLOOD COUNT 6.3 K/mm3 (4.0-10.0)
[2019-09-01 07:58] LABS: ALBUMIN 1.9 g/dl (3.4-5.0); BILIRUBIN,TOTAL 0.3 mg/dL (0.2-1); BLOOD UREA NITROGEN 30.8 mg/dL (7-18); CALCIUM 7.7 mg/dL (8.5-10.1); CREATININE 1.9 mg/dL (0.55-1.3); MAGNESIUM 1.8 mg/dL (1.8-2.4); PHOSPHOROUS 4.6 mg/dL (2.5-4.9); POTASSIUM 4.9 mmol/L (3.5-5.1); TOT PROT 5.1 g/dl (6.4-8.2)
[2019-09-01] MEDS: amLODIPine BESYLATE 10 MG TABLET (FP) PO SCH (09:10)
[2019-09-01] MEDS: metoPROLOL SUCCINATE 25 MG TAB.SR.24H (FP) PO SCH ×2 (09:10→21:16)
[2019-09-01] MEDS: FUROSEMIDE 40 MG/4 ML INJECTABLE VIAL IVPUSH SCH (09:10)
--- NOTE | 2019-09-01 10:22 | PN ---
Physical Exam: SUBJECTIVE: Patient seen and examined. No acute events overnight. OBJECTIVE: Vital Signs Period Temp Pulse Resp BP Sys/Garner Pulse Ox Last 24 Hr 97.6 F-98.1 F 71-83 14-20 139-183/80-105 97-100 GENERAL: a/o x 3 HEAD: Normal with no signs of trauma. EYES: PERRL, conjunctiva clear ENT: oropharynx clear without exudates, moist mucous membranes. NECK: supple. LUNGS: Breath sounds equal, bibasilar rales HEART: Regular rate and rhythm, S1, S2 without murmur, rub or gallop. ABDOMEN: obese, Soft, nontender, nondistended, normoactive bowel sounds, edematous EXTREMITIES: 2+ pulses, warm, well-perfused, +pitting edema b/l to the thighs NEUROLOGICAL: Cranial nerves II through XII grossly intact Laboratory Results - last 24 hr 08/31/19 08/31/19 08/31/19 07:18 11:02 15:38 WBC RBC Hgb Hct MCV MCH MCHC RDW Plt Count MPV Absolute Neuts (auto) Neutrophils % Lymphocytes % Monocytes % Eosinophils % Basophils % Nucleated RBC % Sodium Potassium Chloride Carbon Dioxide Anion Gap BUN Creatinine Est GFR (CKD-EPI)AfAm Est GFR (CKD-EPI)NonAf POC Glucometer 139 140 Random Glucose Calcium Phosphorus Magnesium Iron TIBC Iron Saturation Unsaturated IBC Ferritin Total Bilirubin AST ALT Alkaline Phosphatase Troponin I Total Protein Albumin Ur Random Creatinine U Random Total Protein Ur Random Sodium Urine Creatinine Protein/Creatinin Ratio Blood Type O POSITIVE Antibody Screen Negative 08/31/19 08/31/19 08/31/19 16:03 16:45 18:44 WBC RBC Hgb Hct MCV MCH MCHC RDW Plt Count MPV Absolute Neuts (auto) Neutrophils % Lymphocytes % Monocytes % Eosinophils % Basophils % Nucleated RBC % Sodium 138 Potassium 4.8 Chloride 112 H Carbon Dioxide 21 Anion Gap 6 L BUN 29.4 H Creatinine 1.9 H Est GFR (CKD-EPI)AfAm 44.06 Est GFR (CKD-EPI)NonAf 38.01 POC Glucometer Random Glucose 127 H Calcium 8.1 L Phosphorus Magnesium Iron TIBC Iron Saturation Unsaturated IBC Ferritin 21.4 Total Bilirubin 0.4 AST 17 ALT 24 Alkaline Phosphatase 217 H Troponin I Cancelled 0.03 Total Protein 5.9 L Albumin 2.1 L Ur Random Creatinine 20.0 L U Random Total Protein Ur Random Sodium Urine Creatinine Protein/Creatinin Ratio Blood Type Antibody Screen 08/31/19 08/31/19 09/01/19 18:45 21:39 06:06 WBC RBC Hgb Hct MCV MCH MCHC RDW Plt Count MPV Absolute Neuts (auto) Neutrophils % Lymphocytes % Monocytes % Eosinophils % Basophils % Nucleated RBC % Sodium Potassium Chloride Carbon Dioxide Anion Gap BUN Creatinine Est GFR (CKD-EPI)AfAm Est GFR (CKD-EPI)NonAf POC Glucometer 180 91 Random Glucose Calcium Phosphorus Magnesium Iron TIBC Iron Saturation Unsaturated IBC Ferritin Total Bilirubin AST ALT Alkaline Phosphatase Troponin I Total Protein Albumin Ur Random Creatinine Cancelled U Random Total Protein 239.9 H Ur Random Sodium 111 Urine Creatinine 21.0 L Protein/Creatinin Ratio 11.4 Blood Type Antibody Screen 09/01/19 09/01/19 06:32 06:32 WBC 6.3 RBC 3.19 L Hgb 8.4 L Hct 25.8 L MCV 80.9 MCH 26.5 MCHC 32.7 RDW 14.6 Plt Count 319 MPV 7.7 Absolute Neuts (auto) 4.1 Neutrophils % 64.8 Lymphocytes % 19.2 Monocytes % 8.7 Eosinophils % 7.0 H Basophils % 0.3 Nucleated RBC % 0 Sodium 139 Potassium 4.9 Chloride 112 H Carbon Dioxide 21 Anion Gap 6 L BUN 30.8 H Creatinine 1.9 H Est GFR (CKD-EPI)AfAm 44.06 Est GFR (CKD-EPI)NonAf 38.01 POC Glucometer Random Glucose 93 Calcium 7.7 L Phosphorus 4.6 Magnesium 1.8 Iron 18 L TIBC 271 Iron Saturation 6 L Unsaturated IBC 253 Ferritin 18.6 Total Bilirubin 0.3 AST 11 L ALT 17 Alkaline Phosphatase 179 H Troponin I Total Protein 5.1 L Albumin 1.9 L Ur Random Creatinine U Random Total Protein Ur Random Sodium Urine Creatinine Protein/Creatinin Ratio Blood Type Antibody Screen Active Medications Generic Name Dose Route Start Last Admin Trade Name Freq PRN Reason Stop Dose Admin Acetaminophen 650 mg 08/31/19 05:01 Tylenol - PO Q6H PRN PAIN LEVEL 1-5 Amlodipine Besylate 10 mg 09/01/19 10:00 09/01/19 09:10 Norvasc - PO 10 mg DAILY [facility] Administration Bisacodyl 10 mg 08/31/19 05:01 Dulcolax Suppository - RC PRN PRN CONSTIPATION Furosemide 40 mg 08/31/19 10:00 09/01/19 09:10 Lasix Injection - IVPUSH 40 mg DAILY [facility] Administration Heparin Sodium (Porcine) 5,000 unit 08/31/19 14:00 09/01/19 06:07 Heparin - SQ 5,000 unit TID [facility] Administration Insulin Aspart 1 vial 08/31/19 07:00 09/01/19 06:07 Novolog Vial Sliding Scale - SQ Not Given ACHS [facility] Protocol Metoprolol Succinate 25 mg 08/31/19 10:00 09/01/19 09:10 Toprol Xl - PO 25 mg BID [facility] Administration ASSESSMENT/PLAN: This is a 59 year old man with a history of HTN, hyperlipidemia, CAD, chronic diastolic heart failure, type 2 DM, stage 3 CKD, BPH with bladder outlet obstruction, 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 #Acute on Systolic and Diastolic CHF exacerbation. -cont IV lasix, increase to 40mg BID -Monitor I&O, weight -echo with EF 30%, with severe LV global hypokinesis -FU CMP -FU cardio reccs #Hyperkalemia -resolved #Stage 3 CKD -Creatinine 1.9. Likely at baseline -Monitor creatinine with diuresis #Anemia -likely from CKD -Previously diagnosed with iron deficiency -Hgb unchanged from 04/2019 -iron studies normal -fobt negative #Hematuria, proteinuria -Renal US results noted -Nephrology consult -urine protein to creatinine normal -Check PK, Hepatitis, HIV, RPR #HTN - Continue Norvasc, Toprol XL, Lasix #Hyperlipidemia - On no medication #CAD - Continue Toprol XL - Continue aspirin if no evidence of GI bleeding #Type 2 DM - Hold glipizide - Fingersticks with Novolog sliding scale #BPH #Obesity with BMI 39.0 #FEN -fluid restriction -monitor -sodium diet Visit type - Emergency Visit Emergency Visit: Yes ED Registration Date: 08/30/19 Care time: The patient presented to the Emergency Department on the above date and was hospitalized for further evaluation of their emergent condition. - New Patient This patient is new to me today: Yes Date on this admission: 09/01/19 - Critical Care Critical Care patient: No ATTENDING PHYSICIAN STATEMENT I saw and evaluated the patient. I reviewed the resident's note and discussed the case with the resident. I agree with the resident's findings and plan as documented. SUBJECTIVE: OBJECTIVE: ASSESSMENT AND PLAN:
--- NOTE | 2019-09-01 12:45 | PN ---
Progress Note (short form) - Note Progress Note: s: no cp palps dizzy, sob better, le edema persists Current Medications Generic Name Dose Route Start Last Admin Trade Name Franq PRN Reason Stop Dose Admin Acetaminophen 650 mg 08/31/19 05:01 Tylenol - PO Q6H PRN PAIN LEVEL 1-5 Amlodipine Besylate 10 mg 09/01/19 10:00 09/01/19 09:10 Norvasc - PO 10 mg DAILY [facility] Administration Bisacodyl 10 mg 08/31/19 05:01 Dulcolax Suppository - RC PRN PRN CONSTIPATION Furosemide 40 mg 09/01/19 16:00 Lasix Injection - IVPUSH 09/01/19 16:01 ONCE ONE Furosemide 40 mg 09/02/19 06:00 Lasix Injection - IVPUSH BID@0600,1400 [facility] Heparin Sodium (Porcine) 5,000 unit 08/31/19 14:00 09/01/19 06:07 Heparin - SQ 5,000 unit TID [facility] Administration Insulin Aspart 1 vial 08/31/19 07:00 09/01/19 11:15 Novolog Vial Sliding Scale - SQ Not Given ACHS [facility] Protocol Metoprolol Succinate 25 mg 08/31/19 10:00 09/01/19 09:10 Toprol Xl - PO 25 mg BID [facility] Administration CBC, [facility] 09/01/19 06:32 09/01/19 06:32 Constitutional: Yes: Well Nourished, No Distress, Calm Eyes: Yes: Conjunctiva Clear Neck: Yes: Supple, no JVD Respiratory: +bibasilar rales Gastrointestinal: Yes: Normal Bowel Sounds, Soft Cardiovascular: Yes: Regular Rate and Rhythm Heart Sounds: Yes: S1, S2 Edema: 1+ pitting edema bilaterally Peripheral Pulses: 2+ Left Doralis Pedis, 2+ Right Dorsalis Pedis Neurological: Yes: Alert, Oriented Psychiatric: Yes: Alert, Oriented CBC, BMP 09/01/19 06:32 09/01/19 06:32 Assessment/Plan echo 02/26/18 borderline low LV function, grade I diastolic dysfunction, mild to mod MR, mild TR, RV nl size and function, mild hypokinesis of inf wall echo 08/2019: lvef 30, global hk, mild mr, mod tr, mild phtn Nuclear pharm stress 03/01/18 sm to mod zone of inferior wall reversible defect from base to apex consistent with mild intensity ischemia. nl LV function, ef 52% rest, 58% after stress cath 02/2018 nonobstructive CAD, nl EF EKG: sinus rhythm, LVH with repol CXR: no acute process echo 11/2018 mod conc LVH, nl LV function, RV nl, tr MR, tr TR, mild pulm HTN, tr AR tele: sr,artifact CXR: + congestion 59M h/o DM, HTN, HLD, s/p L great toe amputation and partial 2nd toe amputation p/w toe ulcer and bilateral lower extremity swelling Acute on chronic systolic HF exacerbation - BNP >19785 - echo here with sev decreased lvef, new since 2018 echo, likely NICM given recent unremarkable cath - still with vol overload, continue IV lasix, will increase to bid. monitor daily weights, Cr, lytes - cont toprol JASWINDER/CKD - monitor Cr with diuresis CAD - nonobstructive on cath 02/2018 - continue statin, aspirin HTN - continue amlodipine HLD - cont statin
--- NOTE | 2019-09-01 14:20 | PN ---
Progress Note (short form) - Note Progress Note: Renal follow up for CKD/Fluid overload Seen and examined at the bedside awake and alert still remains swollen sob slightly improved no cp, fever, chills, N/V Vital Signs Temperature 97.8 F 09/01/19 14:08 Pulse Rate 75 09/01/19 14:08 Respiratory Rate 16 09/01/19 14:08 Blood Pressure 139/79 09/01/19 14:08 O2 Sat by Pulse Oximetry (%) 98 09/01/19 09:00 Intake & Output 08/29/19 08/30/19 08/31/19 09/01/19 23:59 23:59 23:59 23:59 Intake Total 360 750 Output Total 300 Balance 360 450 Weight 99.79 kg 99.79 kg 100.698 kg NAD RRR CTA, no rales or wheeze soft NT/ND ++ upper and lower extremity edema no cyanosis or clubbing CBC, BMP 09/01/19 06:32 09/01/19 06:32 Current Medications Acetaminophen (Tylenol -) 650 mg PO Q6H PRN PRN Reason: PAIN LEVEL 1-5 Amlodipine Besylate (Norvasc -) 10 mg PO DAILY [facility] Last Admin: 09/01/19 09:10 Dose: 10 mg Bisacodyl (Dulcolax Suppository -) 10 mg RC PRN PRN PRN Reason: CONSTIPATION Furosemide (Lasix Injection -) 40 mg IVPUSH ONCE ONE Stop: 09/01/19 16:01 Furosemide (Lasix Injection -) 40 mg IVPUSH BID@0600,1400 [facility] Heparin Sodium (Porcine) (Heparin -) 5,000 unit SQ TID [facility] Last Admin: 09/01/19 13:32 Dose: 5,000 unit Insulin Aspart (Novolog Vial Sliding Scale -) 1 vial SQ ACHS [facility]; Protocol Last Admin: 09/01/19 11:15 Dose: Not Given Metoprolol Succinate (Toprol Xl -) 25 mg PO BID [facility] Last Admin: 09/01/19 09:10 Dose: 25 mg 59 year old gentleman with history of CKD stage 3, hypertension, DM type 2, BPH, hyperlipidemia who presented from home with shortness of breath, leg and arm swelling and admitted for diastolic HF. 1. Anasarca 2. Diastolic HF 3. CKD stage 3 4. Metabolic acidosis 5. Anemia 6. Proteinuria Fluid overload likely multifactorial from diastolic HF/CKD/Proteinuria UPCR is 11, in nephrotic range, will follow up serologic studies can consider renal biopsy as an outpatient once volume status improved Continue IV BID lasix, titrate dose to achieve fluid loss. Low K diet Trend renal function and electrolytes daily Thank you Rufino Rudolph DO
[2019-09-01] MEDS ORDERED: FUROSEMIDE 40 MG/4 ML INJECTABLE VIAL IVPUSH ONE (16:00)
--- NOTE | 2019-09-01 16:21 | PN ---
Teaching Attending Note Name of Resident: Jareth Martel ATTENDING PHYSICIAN STATEMENT I saw and evaluated the patient. I reviewed the resident's note and discussed the case with the resident. I agree with the resident's findings and plan as documented. SUBJECTIVE: Seen and examined at bedside, patient feeling better, denies cp, sob, palpitations, nvd OBJECTIVE: Vital Signs - 24 hr 08/31/19 08/31/19 08/31/19 18:00 20:24 21:00 Temperature 98.0 F 97.9 F Pulse Rate 82 83 Respiratory 20 18 18 Rate Blood Pressure 139/80 170/98 O2 Sat by Pulse 98 Oximetry (%) 09/01/19 09/01/19 09/01/19 01:50 06:00 09:00 Temperature 98.1 F 97.7 F 97.6 F Pulse Rate 80 73 71 Respiratory 18 18 18 Rate Blood Pressure 175/105 H 155/84 183/97 H O2 Sat by Pulse 98 Oximetry (%) 09/01/19 09/01/19 10:15 14:08 Temperature 97.8 F Pulse Rate 75 Respiratory 16 Rate Blood Pressure 160/94 139/79 O2 Sat by Pulse Oximetry (%) PE: Gen: NAD Neck: no JVD Lungs: bibasilar crackles, unlabored CVS: s1s2, rrr Abdomen: slightly distended, nabs, soft and nt Ext: 3+ pitting edema bilaterally Current Medications Acetaminophen (Tylenol -) 650 mg PO Q6H PRN PRN Reason: PAIN LEVEL 1-5 Amlodipine Besylate (Norvasc -) 10 mg PO DAILY [facility] Last Admin: 09/01/19 09:10 Dose: 10 mg Bisacodyl (Dulcolax Suppository -) 10 mg RC PRN PRN PRN Reason: CONSTIPATION Furosemide (Lasix Injection -) 40 mg IVPUSH BID@0600,1400 [facility] Heparin Sodium (Porcine) (Heparin -) 5,000 unit SQ TID [facility] Last Admin: 09/01/19 13:32 Dose: 5,000 unit Insulin Aspart (Novolog Vial Sliding Scale -) 1 vial SQ ACHS [facility]; Protocol Last Admin: 09/01/19 11:15 Dose: Not Given Metoprolol Succinate (Toprol Xl -) 25 mg PO BID [facility] Last Admin: 09/01/19 09:10 Dose: 25 mg Laboratory Results - last 24 hr 08/31/19 08/31/19 08/31/19 16:03 16:45 18:44 WBC RBC Hgb Hct MCV MCH MCHC RDW Plt Count MPV Absolute Neuts (auto) Neutrophils % Lymphocytes % Monocytes % Eosinophils % Basophils % Nucleated RBC % Sodium 138 Potassium 4.8 Chloride 112 H Carbon Dioxide 21 Anion Gap 6 L BUN 29.4 H Creatinine 1.9 H Est GFR (CKD-EPI)AfAm 44.06 Est GFR (CKD-EPI)NonAf 38.01 POC Glucometer Random Glucose 127 H Calcium 8.1 L Phosphorus Magnesium Iron TIBC Iron Saturation Unsaturated IBC Ferritin 21.4 Total Bilirubin 0.4 AST 17 ALT 24 Alkaline Phosphatase 217 H Troponin I Cancelled 0.03 Total Protein 5.9 L Albumin 2.1 L Ur Random Creatinine 20.0 L U Random Total Protein Ur Random Sodium Urine Creatinine Protein/Creatinin Ratio 08/31/19 08/31/19 09/01/19 18:45 21:39 06:06 WBC RBC Hgb Hct MCV MCH MCHC RDW Plt Count MPV Absolute Neuts (auto) Neutrophils % Lymphocytes % Monocytes % Eosinophils % Basophils % Nucleated RBC % Sodium Potassium Chloride Carbon Dioxide Anion Gap BUN Creatinine Est GFR (CKD-EPI)AfAm Est GFR (CKD-EPI)NonAf POC Glucometer 180 91 Random Glucose Calcium Phosphorus Magnesium Iron TIBC Iron Saturation Unsaturated IBC Ferritin Total Bilirubin AST ALT Alkaline Phosphatase Troponin I Total Protein Albumin Ur Random Creatinine Cancelled U Random Total Protein 239.9 H Ur Random Sodium 111 Urine Creatinine 21.0 L Protein/Creatinin Ratio 11.4 09/01/19 09/01/19 09/01/19 06:32 06:32 11:13 WBC 6.3 RBC 3.19 L Hgb 8.4 L Hct 25.8 L MCV 80.9 MCH 26.5 MCHC 32.7 RDW 14.6 Plt Count 319 MPV 7.7 Absolute Neuts (auto) 4.1 Neutrophils % 64.8 Lymphocytes % 19.2 Monocytes % 8.7 Eosinophils % 7.0 H Basophils % 0.3 Nucleated RBC % 0 Sodium 139 Potassium 4.9 Chloride 112 H Carbon Dioxide 21 Anion Gap 6 L BUN 30.8 H Creatinine 1.9 H Est GFR (CKD-EPI)AfAm 44.06 Est GFR (CKD-EPI)NonAf 38.01 POC Glucometer 114 Random Glucose 93 Calcium 7.7 L Phosphorus 4.6 Magnesium 1.8 Iron 18 L TIBC 271 Iron Saturation 6 L Unsaturated IBC 253 Ferritin 18.6 Total Bilirubin 0.3 AST 11 L ALT 17 Alkaline Phosphatase 179 H Troponin I Total Protein 5.1 L Albumin 1.9 L Ur Random Creatinine U Random Total Protein Ur Random Sodium Urine Creatinine Protein/Creatinin Ratio all imaging reports reviewed echo 02/26/18 borderline low LV function, grade I diastolic dysfunction, mild to mod MR, mild TR, RV nl size and function, mild hypokinesis of inf wall echo 11/2018 mod conc LVH, nl LV function, RV nl, tr MR, tr TR, mild pulm HTN, tr AR ASSESSMENT AND PLAN: 59M h/o stage 3 CKD, DM, HTN, HLD, s/p L great toe amputation and partial 2nd toe amputation p/w toe ulcer and bilateral lower extremity swelling 1) Acute on chronic CHF exacerbation -2dechocardiogram report reviewed, EF 30% with severe LV global hypokinesis-new changes -last cath 2017, nonobstructive CAD -increase lasix to BID dosing -as per cardio no indication for repeat cath -i/os and daily weights-not documented!! discussed with RN -na and fluid restriction 2) AOCKD -f/u serologies -low K diet -baseline creat around 1.7 -monitor renal function with diuresis -urine cx ordered, not sent -renal following 3) CAD -cw bb, asa 4) DM2 -holding orals -iss for supp coverage 5) HTN -cw norvasc and bb 6) HLD -not on meds 7) BPH-stable 8) JULIENNE-stable
[2019-09-02] MEDS: FUROSEMIDE 40 MG/4 ML INJECTABLE VIAL IVPUSH SCH ×2 (06:07→13:02)
[2019-09-02] MEDS: HEPARIN NA (PORCINE) 5,000 UNITS/ML 1ML VIAL SQ SCH ×3 (06:07→21:59)
[2019-09-02] MEDS: INSULIN SLIDING SCALE (NOVOLOG) 1 VIAL SQ SCH ×4 (06:07→22:00)
[2019-09-02 07:21] LABS: BASO % 0.7 % (0-2.0); EOS % 8.5 % (0-4.5); HEMATOCRIT 26.1 % (35.4-49); HEMOGLOBIN 8.5 GM/dL (11.7-16.9); LYMPH % 20.5 % (8-40); MCH 26.1 pg (25.7-33.7); MCHC 32.5 g/dl (32.0-35.9); MEAN CELL VOLUME 80.5 fl (80-96); MEAN PLT VOLUME 8.1 fl (7.5-11.1); MONO % 9.3 % (3.8-10.2); PLATELET COUNT 358 K/MM3 (134-434); RBC 3.24 M/mm3 (4.00-5.60); WHITE BLOOD COUNT 6.2 K/mm3 (4.0-10.0)
[2019-09-02 08:01] LABS: ALBUMIN 1.9 g/dl (3.4-5.0); BILIRUBIN,TOTAL 0.5 mg/dL (0.2-1); BLOOD UREA NITROGEN 31.8 mg/dL (7-18); CALCIUM 7.8 mg/dL (8.5-10.1); MAGNESIUM 1.7 mg/dL (1.8-2.4); PHOSPHOROUS 4.8 mg/dL (2.5-4.9); POTASSIUM 4.6 mmol/L (3.5-5.1); TOT PROT 5.4 g/dl (6.4-8.2)
[2019-09-02] MEDS: amLODIPine BESYLATE 10 MG TABLET (FP) PO SCH (09:05)
--- NOTE | 2019-09-02 11:50 | PN ---
Physical Exam: SUBJECTIVE: Patient seen and examined. Offers no complaints. Says he is feeling better by the day with less edema. No events overnight. OBJECTIVE: Vital Signs Period Temp Pulse Resp BP Sys/Garner Pulse Ox Last 24 Hr 97.4 F-98.5 F 68-75 16-18 127-172/72-92 98-99 GENERAL: a/o x 3 HEAD: Normal with no signs of trauma. EYES: PERRL, conjunctiva clear ENT: oropharynx clear without exudates, moist mucous membranes. NECK: supple. LUNGS: cta b/l, no rales HEART: Regular rate and rhythm, S1, S2 without murmur, rub or gallop. ABDOMEN: obese, Soft, nontender, nondistended, normoactive bowel sounds, edematous EXTREMITIES: 2+ pulses, warm, well-perfused, +pitting edema b/l to the thighs NEUROLOGICAL: Cranial nerves II through XII grossly intact Laboratory Results - last 24 hr 09/01/19 09/01/19 09/02/19 16:47 20:35 05:30 WBC 6.2 RBC 3.24 L Hgb 8.5 L Hct 26.1 L MCV 80.5 MCH 26.1 MCHC 32.5 RDW 15.0 Plt Count 358 MPV 8.1 Absolute Neuts (auto) 3.7 Neutrophils % 61.0 Lymphocytes % 20.5 Monocytes % 9.3 Eosinophils % 8.5 H Basophils % 0.7 Nucleated RBC % 0 Sodium Potassium Chloride Carbon Dioxide Anion Gap BUN Creatinine Est GFR (CKD-EPI)AfAm Est GFR (CKD-EPI)NonAf POC Glucometer 166 174 Random Glucose Calcium Phosphorus Magnesium Total Bilirubin AST ALT Alkaline Phosphatase Total Protein Albumin 09/02/19 09/02/19 09/02/19 05:30 06:03 10:58 WBC RBC Hgb Hct MCV MCH MCHC RDW Plt Count MPV Absolute Neuts (auto) Neutrophils % Lymphocytes % Monocytes % Eosinophils % Basophils % Nucleated RBC % Sodium 137 Potassium 4.6 Chloride 109 H Carbon Dioxide 22 Anion Gap 6 L BUN 31.8 H Creatinine 2.0 H Est GFR (CKD-EPI)AfAm 41.41 Est GFR (CKD-EPI)NonAf 35.73 POC Glucometer 92 116 Random Glucose 82 Calcium 7.8 L Phosphorus 4.8 Magnesium 1.7 L Total Bilirubin 0.5 AST 10 L ALT 17 Alkaline Phosphatase 177 H Total Protein 5.4 L Albumin 1.9 L Active Medications Generic Name Dose Route Start Last Admin Trade Name Freq PRN Reason Stop Dose Admin Acetaminophen 650 mg 08/31/19 05:01 Tylenol - PO Q6H PRN PAIN LEVEL 1-5 Amlodipine Besylate 10 mg 09/01/19 10:00 09/02/19 09:05 Norvasc - PO 10 mg DAILY CELE[facility]INO Administration Bisacodyl 10 mg 08/31/19 05:01 Dulcolax Suppository - RC PRN PRN CONSTIPATION Furosemide 40 mg 09/02/19 06:00 09/02/19 06:07 Lasix Injection - IVPUSH 40 mg BID@0600,1400 CELE[facility]INO Administration Heparin Sodium (Porcine) 5,000 unit 08/31/19 14:00 09/02/19 06:07 Heparin - SQ 5,000 unit TID CELESTINO Administration Insulin Aspart 1 vial 08/31/19 07:00 09/02/19 10:59 Novolog Vial Sliding Scale - SQ Not Given ACHS [facility] Protocol Metoprolol Succinate 50 mg 09/02/19 10:00 09/02/19 09:05 Toprol Xl - PO 50 mg BID CELESTINO Administration ASSESSMENT/PLAN: This is a 59 year old man with a history of HTN, hyperlipidemia, CAD, chronic diastolic heart failure, type 2 DM, stage 3 CKD, BPH with bladder outlet obstruction, 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 #Acute on Systolic and Diastolic CHF exacerbation. -cont IV lasix 40mg BID -Monitor I&O, weight -echo with EF 30%, with severe LV global hypokinesis -FU CMP -FU cardio reccs #Stage 3 CKD -Creatinine 2. Likely at baseline -Monitor creatinine with diuresis #Anemia -likely from CKD -Previously diagnosed with iron deficiency -Hgb unchanged from 04/2019 -iron studies normal -fobt negative #Hematuria, proteinuria -Renal US results noted -Nephrology consult -urine protein to creatinine normal -Check PK, Hepatitis, HIV, RPR #HTN - Continue Norvasc, Toprol XL, Lasix #Hyperlipidemia - On no medication #CAD - Continue Toprol XL - Continue aspirin if no evidence of GI bleeding #Type 2 DM - Hold glipizide - Fingersticks with Novolog sliding scale #BPH #Obesity with BMI 39.0 #FEN -fluid restriction -monitor -sodium diet Visit type - Emergency Visit Emergency Visit: Yes ED Registration Date: 08/30/19 Care time: The patient presented to the Emergency Department on the above date and was hospitalized for further evaluation of their emergent condition. - New Patient This patient is new to me today: Yes Date on this admission: 09/02/19 - Critical Care Critical Care patient: No ATTENDING PHYSICIAN STATEMENT I saw and evaluated the patient. I reviewed the resident's note and discussed the case with the resident. I agree with the resident's findings and plan as documented. SUBJECTIVE: OBJECTIVE: ASSESSMENT AND PLAN:
--- NOTE | 2019-09-02 13:08 | PN ---
Teaching Attending Note Name of Resident: Jareth Martel ATTENDING PHYSICIAN STATEMENT I saw and evaluated the patient. I reviewed the resident's note and discussed the case with the resident. I agree with the resident's findings and plan as documented. SUBJECTIVE: seen patient at bedside, endorses feeling better, SOB slightly improved, tense LE edema which is improved from prior. OBJECTIVE: Vital Signs - 24 hr 09/01/19 09/01/19 09/01/19 14:08 18:00 21:00 Temperature 97.8 F 97.4 F L 97.6 F Pulse Rate 75 70 75 Respiratory 16 18 18 Rate Blood Pressure 139/79 127/72 151/85 O2 Sat by Pulse 98 Oximetry (%) 09/02/19 09/02/19 09/02/19 04:22 06:00 09:00 Temperature 98.2 F 98.1 F Pulse Rate 71 71 Respiratory 18 18 Rate Blood Pressure 148/81 165/92 O2 Sat by Pulse 99 Oximetry (%) 09/02/19 09:18 Temperature 98.5 F Pulse Rate 68 Respiratory 18 Rate Blood Pressure 172/92 H O2 Sat by Pulse Oximetry (%) Laboratory Results - last 24 hr 09/01/19 09/01/19 09/02/19 16:47 20:35 05:30 WBC 6.2 RBC 3.24 L Hgb 8.5 L Hct 26.1 L MCV 80.5 MCH 26.1 MCHC 32.5 RDW 15.0 Plt Count 358 MPV 8.1 Absolute Neuts (auto) 3.7 Neutrophils % 61.0 Lymphocytes % 20.5 Monocytes % 9.3 Eosinophils % 8.5 H Basophils % 0.7 Nucleated RBC % 0 Sodium Potassium Chloride Carbon Dioxide Anion Gap BUN Creatinine Est GFR (CKD-EPI)AfAm Est GFR (CKD-EPI)NonAf POC Glucometer 166 174 Random Glucose Calcium Phosphorus Magnesium Total Bilirubin AST ALT Alkaline Phosphatase Total Protein Albumin 09/02/19 09/02/19 09/02/19 05:30 06:03 10:58 WBC RBC Hgb Hct MCV MCH MCHC RDW Plt Count MPV Absolute Neuts (auto) Neutrophils % Lymphocytes % Monocytes % Eosinophils % Basophils % Nucleated RBC % Sodium 137 Potassium 4.6 Chloride 109 H Carbon Dioxide 22 Anion Gap 6 L BUN 31.8 H Creatinine 2.0 H Est GFR (CKD-EPI)AfAm 41.41 Est GFR (CKD-EPI)NonAf 35.73 POC Glucometer 92 116 Random Glucose 82 Calcium 7.8 L Phosphorus 4.8 Magnesium 1.7 L Total Bilirubin 0.5 AST 10 L ALT 17 Alkaline Phosphatase 177 H Total Protein 5.4 L Albumin 1.9 L Current Medications Generic Name Dose Route Start Last Admin Trade Name Freq PRN Reason Stop Dose Admin Acetaminophen 650 mg 08/31/19 05:01 Tylenol - PO Q6H PRN PAIN LEVEL 1-5 Amlodipine Besylate 10 mg 09/01/19 10:00 09/02/19 09:05 Norvasc - PO 10 mg DAILY CELE[facility]INO Administration Bisacodyl 10 mg 08/31/19 05:01 Dulcolax Suppository - RC PRN PRN CONSTIPATION Furosemide 40 mg 09/02/19 06:00 09/02/19 13:02 Lasix Injection - IVPUSH 40 mg BID@0600,1400 CE[facility] Administration Heparin Sodium (Porcine) 5,000 unit 08/31/19 14:00 09/02/19 13:02 Heparin - SQ 5,000 unit TID CELESTINO Administration Insulin Aspart 1 vial 08/31/19 07:00 09/02/19 10:59 Novolog Vial Sliding Scale - SQ Not Given ACHS [facility] Protocol Metoprolol Succinate 50 mg 09/02/19 10:00 09/02/19 09:05 Toprol Xl - PO 50 mg BID CELESTINO Administration ASSESSMENT AND PLAN: 59 M , DM, HTN, HLD, s/p L great toe amputation and partial 2nd toe amputation p /w toe ulcer and bilateral lower extremity swelling. 1) Acute on chronic CHF exacerbation -2dechocardiogram report reviewed, EF 30% with severe LV global hypokinesis-new changes, Cardiology not recommending PCI at this time -last cath 2018, nonobstructive CAD -increase lasix to BID dosing -Monitor I/O, lung sounds clear -Increased Toprol to 50mg BID as this provides greatest cardiac benefit and BP high -na and fluid restriction 2) AOCKD -?new baseline CKD, following with renal sending JASWINDER workup -if CRE continues to trend up, hold Lasix -kidneys appear unremarkable on recent US, denies LUTS 3) CAD -optimize treatment, increase BB 4) DM 2 -holding orals -iss for supp coverage 5) HTN -cw norvasc and bb 6) HLD -not on meds 7) BPH-stable 8) JULIENNE-stable DVT ppx: AC
--- NOTE | 2019-09-02 15:08 | PN ---
Progress Note (short form) - Note Progress Note: s: no cp palps dizzy, sob better, le edema persists Current Medications Generic Name Dose Route Start Last Admin Trade Name Rickey PRN Reason Stop Dose Admin Acetaminophen 650 mg 08/31/19 05:01 Tylenol - PO Q6H PRN PAIN LEVEL 1-5 Amlodipine Besylate 10 mg 09/01/19 10:00 09/02/19 09:05 Norvasc - PO 10 mg DAILY CELESTINO Administration Bisacodyl 10 mg 08/31/19 05:01 Dulcolax Suppository - RC PRN PRN CONSTIPATION Furosemide 40 mg 09/02/19 06:00 09/02/19 13:02 Lasix Injection - IVPUSH 40 mg BID@0600,1400 CELESTINO Administration Heparin Sodium (Porcine) 5,000 unit 08/31/19 14:00 09/02/19 13:02 Heparin - SQ 5,000 unit TID CELESTINO Administration Insulin Aspart 1 vial 08/31/19 07:00 09/02/19 10:59 Novolog Vial Sliding Scale - SQ Not Given ACHS [facility] Protocol Metoprolol Succinate 50 mg 09/02/19 10:00 09/02/19 09:05 Toprol Xl - PO 50 mg BID CELESTINO Administration Vital Signs Period Temp Pulse Resp BP Sys/Garner Pulse Ox Last 24 Hr 97.4 F-98.5 F 68-75 18-18 127-172/72-92 98-99 Constitutional: Yes: Well Nourished, No Distress, Calm Eyes: Yes: Conjunctiva Clear Neck: Yes: Supple, no JVD Respiratory: +bibasilar rales Gastrointestinal: Yes: Normal Bowel Sounds, Soft Cardiovascular: Yes: Regular Rate and Rhythm Heart Sounds: Yes: S1, S2 Edema: 1+ pitting edema bilaterally Peripheral Pulses: 2+ Left Doralis Pedis, 2+ Right Dorsalis Pedis Neurological: Yes: Alert, Oriented Psychiatric: Yes: Alert, Oriented CBC, BMP 09/02/19 05:30 09/02/19 05:30 Assessment/Plan echo 02/26/18 borderline low LV function, grade I diastolic dysfunction, mild to mod MR, mild TR, RV nl size and function, mild hypokinesis of inf wall echo 08/2019: lvef 30, global hk, mild mr, mod tr, mild phtn Nuclear pharm stress 03/01/18 sm to mod zone of inferior wall reversible defect from base to apex consistent with mild intensity ischemia. nl LV function, ef 52% rest, 58% after stress cath 02/2018 nonobstructive CAD, nl EF EKG: sinus rhythm, LVH with repol CXR: no acute process echo 11/2018 mod conc LVH, nl LV function, RV nl, tr MR, tr TR, mild pulm HTN, tr AR tele: sr CXR: + congestion 59M h/o DM, HTN, HLD, s/p L great toe amputation and partial 2nd toe amputation p/w toe ulcer and bilateral lower extremity swelling Acute on chronic systolic HF exacerbation - BNP >59346 - echo here with sev decreased lvef, new since 2018 echo, likely NICM given recent unremarkable cath - still with vol overload, continue IV lasix. monitor daily weights, Cr, lytes. - cont toprol JASWINDER/CKD - monitor Cr with diuresis CAD - nonobstructive on cath 02/2018 - continue statin, aspirin HTN - continue amlodipine HLD - cont statin
[2019-09-02] MEDS ORDERED: MAGNESIUM OXIDE 400 MG TABLET (FP) PO ONE (16:44)
--- NOTE | 2019-09-02 16:44 | PN ---
Progress Note, Physician History of Present Illness: Pt seen and examined at bedside. He is awake and alert. He feels that his breathing is improving but he still complains of lower ext edema. - Current Medication List Current Medications: Active Medications Acetaminophen (Tylenol -) 650 mg PO Q6H PRN PRN Reason: PAIN LEVEL 1-5 Amlodipine Besylate (Norvasc -) 10 mg PO DAILY [facility] Last Admin: 09/02/19 09:05 Dose: 10 mg Bisacodyl (Dulcolax Suppository -) 10 mg RC PRN PRN PRN Reason: CONSTIPATION Furosemide (Lasix Injection -) 40 mg IVPUSH BID@0600,1400 [facility] Last Admin: 09/02/19 13:02 Dose: 40 mg Heparin Sodium (Porcine) (Heparin -) 5,000 unit SQ TID [facility] Last Admin: 09/02/19 13:02 Dose: 5,000 unit Insulin Aspart (Novolog Vial Sliding Scale -) 1 vial SQ ACHS [facility]; Protocol Last Admin: 09/02/19 16:27 Dose: 2 units Metoprolol Succinate (Toprol Xl -) 50 mg PO BID [facility] Last Admin: 09/02/19 09:05 Dose: 50 mg - Objective Vital Signs: Vital Signs Temperature 98.3 F 09/02/19 13:11 Pulse Rate 71 09/02/19 13:11 Respiratory Rate 18 09/02/19 13:11 Blood Pressure 135/81 09/02/19 13:11 O2 Sat by Pulse Oximetry (%) 99 09/02/19 09:00 Constitutional: Yes: Calm Eyes: Yes: Conjunctiva Clear HENT: Yes: Atraumatic Neck: Yes: Supple Cardiovascular: Yes: S1, S2 Respiratory: Yes: CTA Bilaterally Gastrointestinal: Yes: Normal Bowel Sounds, Soft Genitourinary: Yes: WNL Edema: Yes Edema: LLE: 3+, RLE: 3+ Integumentary: Yes: Venous Stasis Changes Neurological: Yes: Oriented Psychiatric: Yes: Oriented Labs: CBC, BMP 09/02/19 05:30 09/02/19 05:30 Assessment/Plan Current Medications Generic Name Dose Route Start Last Admin Trade Name Freq PRN Reason Stop Dose Admin Acetaminophen 650 mg 08/31/19 05:01 Tylenol - PO Q6H PRN PAIN LEVEL 1-5 Amlodipine Besylate 10 mg 09/01/19 10:00 09/02/19 09:05 Norvasc - PO 10 mg DAILY CELE[facility]INO Administration Bisacodyl 10 mg 08/31/19 05:01 Dulcolax Suppository - RC PRN PRN CONSTIPATION Furosemide 40 mg 09/02/19 06:00 09/02/19 13:02 Lasix Injection - IVPUSH 40 mg BID@0600,1400 CELESTINO Administration Heparin Sodium (Porcine) 5,000 unit 08/31/19 14:00 09/02/19 13:02 Heparin - SQ 5,000 unit TID CELESTINO Administration Insulin Aspart 1 vial 08/31/19 07:00 09/02/19 16:27 Novolog Vial Sliding Scale - SQ 2 units ACHS CELE[facility]INO Administration Protocol Metoprolol Succinate 50 mg 09/02/19 10:00 09/02/19 09:05 Toprol Xl - PO 50 mg BID CELESTINO Administration Laboratory Tests 08/30/19 08/31/19 08/31/19 15:45 16:45 18:45 Creatinine 2.0 H 1.9 H Protein/Creatinin Ratio 11.4 PK Screen c-ANCA Proteinase 3 (PR3) p-ANCA Atypical p-ANCA Myeloperoxidase Ab Hep A IgM Ab Confirm Hep Bs Antigen Hep B Core IgM Ab Hepatitis C Ab (EIA) HIV 1&2 Ag/Ab, 4th Gen 09/01/19 09/02/19 09/02/19 06:32 05:30 05:30 Creatinine 1.9 H 2.0 H Protein/Creatinin Ratio PK Screen Pending c-ANCA Pending Proteinase 3 (PR3) Pending p-ANCA Pending Atypical p-ANCA Pending Myeloperoxidase Ab Pending Hep A IgM Ab Confirm Pending Hep Bs Antigen Pending Hep B Core IgM Ab Pending Hepatitis C Ab (EIA) Pending HIV 1&2 Ag/Ab, 4th Gen 09/02/19 05:30 Creatinine Protein/Creatinin Ratio PK Screen c-ANCA Proteinase 3 (PR3) p-ANCA Atypical p-ANCA Myeloperoxidase Ab Hep A IgM Ab Confirm Hep Bs Antigen Hep B Core IgM Ab Hepatitis C Ab (EIA) HIV 1&2 Ag/Ab, 4th Gen Pending Impression 1. Anasarca 2. Diastolic HF 3. CKD stage 3 4. Metabolic acidosis 5. Anemia 6. Proteinuria - nephrotic Plan - cont lasix - follow serologies, still pending - monitor renal function - possible kidney biopsy once more stable - chcek spep
[2019-09-03] MEDS: HEPARIN NA (PORCINE) 5,000 UNITS/ML 1ML VIAL SQ SCH ×3 (05:39→21:30)
[2019-09-03] MEDS: FUROSEMIDE 40 MG/4 ML INJECTABLE VIAL IVPUSH SCH ×2 (05:39→13:54)
[2019-09-03] MEDS: guaiFENesin 200 MG/10 ML 10 ML UNIT-DOSE CUPS PO PRN ×2 (06:13→11:37)
[2019-09-03 06:32] LABS: BASO % 1.3 % (0-2.0); EOS % 5.7 % (0-4.5); HEMATOCRIT 26.2 % (35.4-49); HEMOGLOBIN 8.6 GM/dL (11.7-16.9); LYMPH % 16.1 % (8-40); MCH 26.1 pg (25.7-33.7); MCHC 32.9 g/dl (32.0-35.9); MEAN CELL VOLUME 79.5 fl (80-96); MONO % 13.8 % (3.8-10.2); NEUT % 63.1 % (42.8-82.8); PLATELET COUNT 320 K/MM3 (134-434); RDW 14.9 % (11.9-15.9); WHITE BLOOD COUNT 4.5 K/mm3 (4.0-10.0)
[2019-09-03] MEDS: INSULIN SLIDING SCALE (NOVOLOG) 1 VIAL SQ SCH ×4 (07:00→21:29)
[2019-09-03 07:13] LABS: ALBUMIN 2.1 g/dl (3.4-5.0); BILIRUBIN,TOTAL 0.2 mg/dL (0.2-1); BLOOD UREA NITROGEN 32.8 mg/dL (7-18); CALCIUM 7.6 mg/dL (8.5-10.1); POTASSIUM 4.6 mmol/L (3.5-5.1); TOT PROT 5.6 g/dl (6.4-8.2)
--- NOTE | 2019-09-03 08:10 | PN ---
Progress Note, Physician History of Present Illness: Feelsing improved, less edema Tele: NSR - Current Medication List Current Medications: Active Medications Acetaminophen (Tylenol -) 650 mg PO Q6H PRN PRN Reason: PAIN LEVEL 1-5 Amlodipine Besylate (Norvasc -) 10 mg PO DAILY [facility] Last Admin: 09/02/19 09:05 Dose: 10 mg Bisacodyl (Dulcolax Suppository -) 10 mg RC PRN PRN PRN Reason: CONSTIPATION Furosemide (Lasix Injection -) 40 mg IVPUSH BID@0600,1400 [facility] Last Admin: 09/03/19 05:39 Dose: 40 mg Guaifenesin (Robitussin -) 10 ml PO Q6H PRN PRN Reason: COUGH Last Admin: 09/03/19 06:13 Dose: 10 ml Heparin Sodium (Porcine) (Heparin -) 5,000 unit SQ TID [facility] Last Admin: 09/03/19 05:39 Dose: 5,000 unit Insulin Aspart (Novolog Vial Sliding Scale -) 1 vial SQ ACHS [facility]; Protocol Last Admin: 09/03/19 07:00 Dose: Not Given Metoprolol Succinate (Toprol Xl -) 50 mg PO BID [facility] Last Admin: 09/02/19 22:00 Dose: 50 mg - Objective Vital Signs: Vital Signs Temperature 98.3 F 09/03/19 05:46 Pulse Rate 81 09/03/19 05:46 Respiratory Rate 18 09/03/19 05:46 Blood Pressure 141/83 09/03/19 05:46 O2 Sat by Pulse Oximetry (%) 99 09/02/19 21:00 Constitutional: Yes: Well Nourished, No Distress Cardiovascular: Yes: Regular Rate and Rhythm Respiratory: Yes: CTA Bilaterally Edema: Yes Labs: CBC, BMP 09/03/19 06:05 09/03/19 06:05 Assessment/Plan 59M h/o DM, HTN, HLD, s/p L great toe amputation and partial 2nd toe amputation p/w toe ulcer and bilateral lower extremity swelling Acute on chronic systolic HF exacerbation - BNP >27905 - echo here with sev decreased lvef, new since 2018 echo, likely NICM given recent unremarkable cath - still with vol overload, continue IV lasix 40mg BID. sCreat stable at 2 today - cont toprol JASWINDER/CKD - Stable sCreat
[2019-09-03] MEDS: amLODIPine BESYLATE 10 MG TABLET (FP) PO SCH (10:44)
--- NOTE | 2019-09-03 13:57 | PN ---
Physical Exam: SUBJECTIVE: Patient seen and examined. He complains of a cough with small amounts of white sputum. OBJECTIVE: Vital Signs Period Temp Pulse Resp BP Sys/Garner Pulse Ox Last 24 Hr 98.1 F-98.5 F 71-81 18-20 141-164/82-93 99-99 GENERAL: The patient is awake, alert, and fully oriented, in no acute distress. LUNGS: Breath sounds equal, clear to auscultation bilaterally, no wheezes, no crackles, no accessory muscle use. HEART: Regular rate and rhythm, S1, S2 without murmur, rub or gallop. ABDOMEN: Obese, soft, nontender, nondistended, normoactive bowel sounds, no guarding, no rebound, no hepatosplenomegaly, no masses. EXTREMITIES: 2+ pulses, warm, well-perfused, 1+ edema. Laboratory Results - last 24 hr 09/02/19 09/02/19 09/02/19 05:30 05:30 16:25 WBC RBC Hgb Hct MCV MCH MCHC RDW Plt Count MPV Absolute Neuts (auto) Neutrophils % Lymphocytes % Monocytes % Eosinophils % Basophils % Nucleated RBC % Sodium Potassium Chloride Carbon Dioxide Anion Gap BUN Creatinine Est GFR (CKD-EPI)AfAm Est GFR (CKD-EPI)NonAf POC Glucometer 184 Random Glucose Calcium Total Bilirubin AST ALT Alkaline Phosphatase Total Protein Albumin Hep A IgM Ab Confirm Negative Hep Bs Antigen Negative Hep B Core IgM Ab Negative Hepatitis C Ab (EIA) 0.1 HIV 1&2 Ag/Ab, 4th Gen Non reactive 09/02/19 09/03/19 09/03/19 21:56 05:40 06:05 WBC 4.5 RBC 3.30 L Hgb 8.6 L Hct 26.2 L MCV 79.5 L MCH 26.1 MCHC 32.9 RDW 14.9 Plt Count 320 MPV 8.0 Absolute Neuts (auto) 2.9 Neutrophils % 63.1 Lymphocytes % 16.1 D Monocytes % 13.8 H Eosinophils % 5.7 H Basophils % 1.3 Nucleated RBC % 0 Sodium Potassium Chloride Carbon Dioxide Anion Gap BUN Creatinine Est GFR (CKD-EPI)AfAm Est GFR (CKD-EPI)NonAf POC Glucometer 151 99 Random Glucose Calcium Total Bilirubin AST ALT Alkaline Phosphatase Total Protein Albumin Hep A IgM Ab Confirm Hep Bs Antigen Hep B Core IgM Ab Hepatitis C Ab (EIA) HIV 1&2 Ag/Ab, 4th Gen 09/03/19 09/03/19 06:05 11:31 WBC RBC Hgb Hct MCV MCH MCHC RDW Plt Count MPV Absolute Neuts (auto) Neutrophils % Lymphocytes % Monocytes % Eosinophils % Basophils % Nucleated RBC % Sodium 136 Potassium 4.6 Chloride 107 Carbon Dioxide 21 Anion Gap 8 BUN 32.8 H Creatinine 2.0 H Est GFR (CKD-EPI)AfAm 41.41 Est GFR (CKD-EPI)NonAf 35.73 POC Glucometer 159 Random Glucose 107 H Calcium 7.6 L Total Bilirubin 0.2 AST 14 L ALT 15 Alkaline Phosphatase 167 H Total Protein 5.6 L Albumin 2.1 L Hep A IgM Ab Confirm Hep Bs Antigen Hep B Core IgM Ab Hepatitis C Ab (EIA) HIV 1&2 Ag/Ab, 4th Gen Active Medications Generic Name Dose Route Start Last Admin Trade Name Freq PRN Reason Stop Dose Admin Acetaminophen 650 mg 08/31/19 05:01 Tylenol - PO Q6H PRN PAIN LEVEL 1-5 Amlodipine Besylate 10 mg 09/01/19 10:00 09/03/19 10:44 Norvasc - PO 10 mg DAILY [facility]INO Administration Bisacodyl 10 mg 08/31/19 05:01 Dulcolax Suppository - RC PRN PRN CONSTIPATION Furosemide 40 mg 09/02/19 06:00 09/03/19 05:39 Lasix Injection - IVPUSH 40 mg BID@0600,1400 [facility] Administration Guaifenesin 10 ml 09/03/19 05:37 09/03/19 11:37 Robitussin - PO 10 ml Q6H PRN Administration COUGH Heparin Sodium (Porcine) 5,000 unit 08/31/19 14:00 09/03/19 05:39 Heparin - SQ 5,000 unit TID CELESTINO Administration Insulin Aspart 1 vial 08/31/19 07:00 09/03/19 11:35 Novolog Vial Sliding Scale - SQ 2 units ACHS [facility] Administration Protocol Metoprolol Succinate 50 mg 09/02/19 10:00 09/03/19 10:44 Toprol Xl - PO 50 mg BID CELESTINO Administration ASSESSMENT/PLAN: This is a 59 year old man with a history of HTN, hyperlipidemia, CAD, chronic diastolic heart failure, type 2 DM, stage 3 CKD, BPH with bladder outlet obstruction, 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 1. Acute on chronic diastolic heart failure - Continue Lasix IV - Weight decreased 4.4 kg in 2 days 2. Hyperkalemia - Improved 3. Stage 3 CKD - Creatinine stable 4. Iron deficiency anemia - Stool negative for occult blood - Hgb stable 5. Hematuria, proteinuria - UA shows 1+ blood with 9 RBC, 3+ protein - US shows normal kidneys - Nephrology input appreciated 6. HTN - Continue Norvasc, Toprol XL, Lasix 7. Hyperlipidemia - On no medication 8. CAD - Continue Toprol XL 9. Type 2 DM - Glipizide held - Continue Novolog sliding scale 10. BPH 11. Obesity with BMI 37.7 Visit type - Emergency Visit Emergency Visit: Yes ED Registration Date: 08/30/19 Care time: The patient presented to the Emergency Department on the above date and was hospitalized for further evaluation of their emergent condition. - New Patient This patient is new to me today: No - Critical Care Critical Care patient: No - Discharge Referral Referred to [facility] Med P.C.: No
[2019-09-03] MEDS ORDERED: ACETAMINOPHEN 325 MG TABLET (FP) PO PRN (15:18)
[2019-09-03] MEDS: guaiFENesin/CODEINE 10 ML UNIT-DOSE CUPS PO PRN (15:27)
--- NOTE | 2019-09-03 17:54 | PN ---
Progress Note, Physician History of Present Illness: Pt seen and examined at bedside. He is awake and alert. He feels that his edema is improving. - Current Medication List Current Medications: Active Medications Acetaminophen (Tylenol -) 650 mg PO Q6H PRN PRN Reason: FEVER Last Admin: 09/03/19 15:25 Dose: 650 mg Amlodipine Besylate (Norvasc -) 10 mg PO DAILY [facility] Last Admin: 09/03/19 10:44 Dose: 10 mg Bisacodyl (Dulcolax Suppository -) 10 mg RC PRN PRN PRN Reason: CONSTIPATION Furosemide (Lasix Injection -) 40 mg IVPUSH BID@0600,1400 [facility] Last Admin: 09/03/19 13:54 Dose: 40 mg Guaifenesin/Codeine Phosphate (Robitussin Ac -) 10 ml PO Q8H PRN PRN Reason: COUGH Last Admin: 09/03/19 15:27 Dose: 10 ml Heparin Sodium (Porcine) (Heparin -) 5,000 unit SQ TID [facility] Last Admin: 09/03/19 13:54 Dose: 5,000 unit Insulin Aspart (Novolog Vial Sliding Scale -) 1 vial SQ [facility]; Protocol Last Admin: 09/03/19 17:06 Dose: Not Given Metoprolol Succinate (Toprol Xl -) 50 mg PO BID [facility] Last Admin: 09/03/19 10:44 Dose: 50 mg - Objective Vital Signs: Vital Signs Temperature 100.4 F H 09/03/19 14:00 Pulse Rate 83 09/03/19 14:00 Respiratory Rate 18 09/03/19 14:00 Blood Pressure 148/74 09/03/19 14:00 O2 Sat by Pulse Oximetry (%) 99 09/03/19 09:00 Constitutional: Yes: Calm Eyes: Yes: Conjunctiva Clear HENT: Yes: Atraumatic Neck: Yes: Supple Cardiovascular: Yes: S1, S2 Respiratory: Yes: CTA Bilaterally Gastrointestinal: Yes: Soft Genitourinary: Yes: WNL Musculoskeletal: Yes: WNL Edema: Yes Edema: LLE: 3+, RLE: 3+ Neurological: Yes: Oriented Psychiatric: Yes: Oriented Labs: CBC, BMP 09/03/19 06:05 09/03/19 06:05 Assessment/Plan Current Medications Generic Name Dose Route Start Last Admin Trade Name Freq PRN Reason Stop Dose Admin Acetaminophen 650 mg 02/08/20 15:18 09/03/19 15:25 Tylenol - PO 650 mg Q6H PRN Administration FEVER Amlodipine Besylate 10 mg 09/01/19 10:00 09/03/19 10:44 Norvasc - PO 10 mg DAILY [facility] Administration Bisacodyl 10 mg 08/31/19 05:01 Dulcolax Suppository - RC PRN PRN CONSTIPATION Furosemide 40 mg 09/02/19 06:00 09/03/19 13:54 Lasix Injection - IVPUSH 40 mg BID@0600,1400 [facility] Administration Guaifenesin/Codeine Phosphate 10 ml 09/03/19 15:18 09/03/19 15:27 Robitussin Ac - PO 10 ml Q8H PRN Administration COUGH Heparin Sodium (Porcine) 5,000 unit 08/31/19 14:00 09/03/19 13:54 Heparin - SQ 5,000 unit TID [facility] Administration Insulin Aspart 1 vial 08/31/19 07:00 09/03/19 17:06 Novolog Vial Sliding Scale - SQ Not Given ACHS [facility] Protocol Metoprolol Succinate 50 mg 09/02/19 10:00 09/03/19 10:44 Toprol Xl - PO 50 mg BID [facility] Administration Laboratory Tests 09/02/19 09/02/19 05:30 19:30 Total Protein (PEP) Pending MARGA M-Mo Pending PK Screen Pending c-ANCA Pending Proteinase 3 (PR3) Pending p-ANCA Pending Atypical p-ANCA Pending Myeloperoxidase Ab Pending Impression 1. Anasarca 2. Diastolic HF 3. CKD stage 3 4. Metabolic acidosis 5. Anemia 6. Proteinuria - nephrotic Plan - cont with lasix - repeat labs in am - renal function stable - cardio input appreciated - follow serologies and spep - possible kidney biopsy once more stable
[2019-09-04] MEDS: guaiFENesin/CODEINE 10 ML UNIT-DOSE CUPS PO PRN ×2 (01:31→09:51)
[2019-09-04] MEDS: INSULIN SLIDING SCALE (NOVOLOG) 1 VIAL SQ SCH ×4 (06:13→23:07)
[2019-09-04] MEDS: HEPARIN NA (PORCINE) 5,000 UNITS/ML 1ML VIAL SQ SCH ×3 (06:13→21:38)
[2019-09-04] MEDS: FUROSEMIDE 40 MG/4 ML INJECTABLE VIAL IVPUSH SCH (06:13)
[2019-09-04 07:41] LABS: HEMATOCRIT 26.7 % (35.4-49); HEMOGLOBIN 8.6 GM/dL (11.7-16.9); MCH 26.1 pg (25.7-33.7); MCHC 32.3 g/dl (32.0-35.9); MEAN CELL VOLUME 80.8 fl (80-96); PLATELET COUNT 265 K/MM3 (134-434); RBC 3.31 M/mm3 (4.00-5.60); WHITE BLOOD COUNT 5.1 K/mm3 (4.0-10.0)
[2019-09-04 08:03] LABS: ALBUMIN 2.1 g/dl (3.4-5.0); BILIRUBIN,TOTAL 0.3 mg/dL (0.2-1); BLOOD UREA NITROGEN 39.7 mg/dL (7-18); CALCIUM 7.6 mg/dL (8.5-10.1); CREATININE 2.5 mg/dL (0.55-1.3); MAGNESIUM 1.6 mg/dL (1.8-2.4); POTASSIUM 4.6 mmol/L (3.5-5.1); TOT PROT 5.6 g/dl (6.4-8.2)
--- NOTE | 2019-09-04 09:14 | PN ---
Progress Note, Physician History of Present Illness: No CV complaints Feels dyspnea and edema are slowly improving Tele: NSR 70s - Current Medication List Current Medications: Active Medications Acetaminophen (Tylenol -) 650 mg PO Q6H PRN PRN Reason: FEVER Last Admin: 09/03/19 15:25 Dose: 650 mg Amlodipine Besylate (Norvasc -) 10 mg PO DAILY [facility] Last Admin: 09/03/19 10:44 Dose: 10 mg Bisacodyl (Dulcolax Suppository -) 10 mg RC PRN PRN PRN Reason: CONSTIPATION Furosemide (Lasix Injection -) 40 mg IVPUSH BID@0600,1400 [facility] Last Admin: 09/04/19 06:13 Dose: 40 mg Guaifenesin/Codeine Phosphate (Robitussin Ac -) 10 ml PO Q8H PRN PRN Reason: COUGH Last Admin: 09/04/19 01:31 Dose: 10 ml Heparin Sodium (Porcine) (Heparin -) 5,000 unit SQ TID [facility] Last Admin: 09/04/19 06:13 Dose: 5,000 unit Insulin Aspart (Novolog Vial Sliding Scale -) 1 vial SQ ACHS [facility]; Protocol Last Admin: 09/04/19 06:13 Dose: Not Given Metoprolol Succinate (Toprol Xl -) 50 mg PO BID [facility] Last Admin: 09/03/19 21:30 Dose: 50 mg - Objective Vital Signs: Vital Signs Temperature 99.3 F 09/04/19 06:00 Pulse Rate 84 09/04/19 06:00 Respiratory Rate 18 09/04/19 06:00 Blood Pressure 140/80 09/04/19 06:00 O2 Sat by Pulse Oximetry (%) 99 09/03/19 21:00 Constitutional: Yes: No Distress, Calm Cardiovascular: Yes: Regular Rate and Rhythm Respiratory: Yes: CTA Bilaterally Edema: Yes Edema: LLE: 2+, RLE: 2+ Labs: CBC, BMP 09/04/19 06:05 09/04/19 06:05 Assessment/Plan 59M h/o DM, HTN, HLD, s/p L great toe amputation and partial 2nd toe amputation p/w toe ulcer and bilateral lower extremity swelling Acute on chronic systolic HF exacerbation - BNP >07352 - echo here with severe decreased lvef, new since 2018 echo, likely NICM given recent unremarkable cath - still with vol overload but improving, - Would hold lasix dosing today given sCreat up to 2.5 - Needs Mag repletion (Mg 1.6) - cont toprol JASWINDER/CKD - Rising sCreat to 2.5 -Holding lasix
[2019-09-04] MEDS: MAGNESIUM OXIDE 400 MG TABLET (FP) PO SCH ×2 (09:51→21:38)
[2019-09-04] MEDS: amLODIPine BESYLATE 10 MG TABLET (FP) PO SCH (09:51)
--- NOTE | 2019-09-04 12:30 | PN ---
Physical Exam: SUBJECTIVE: Patient seen and examined. He says cough is better with Robitussin AC. No new complaints. OBJECTIVE: Vital Signs Period Temp Pulse Resp BP Sys/Garner Pulse Ox Last 24 Hr 97.3 F-100.4 F 72-84 18-20 140-164/74-88 99 GENERAL: The patient is awake, alert, and fully oriented, in no acute distress. LUNGS: Breath sounds equal, clear to auscultation bilaterally, no wheezes, no crackles, no accessory muscle use. HEART: Regular rate and rhythm, S1, S2 without murmur, rub or gallop. ABDOMEN: Obese, soft, nontender, nondistended, normoactive bowel sounds, no guarding, no rebound, no hepatosplenomegaly, no masses. EXTREMITIES: 2+ pulses, warm, well-perfused, 2+ edema. Laboratory Results - last 24 hr 09/02/19 09/03/19 09/03/19 05:30 16:15 21:28 WBC RBC Hgb Hct MCV MCH MCHC RDW Plt Count MPV Sodium Potassium Chloride Carbon Dioxide Anion Gap BUN Creatinine Est GFR (CKD-EPI)AfAm Est GFR (CKD-EPI)NonAf POC Glucometer 136 224 Random Glucose Calcium Magnesium Total Bilirubin AST ALT Alkaline Phosphatase Total Protein Albumin PK Screen Positive H PK Homogeneous Pattern 1:80 PK Nucleolar Pattern TNP PK Spindle Elen Pattern TNP PK Midbody Pattern TNP PK Centriole Pattern TNP PK Nuclear Dot Pattern TNP PK PCNA Pattern TNP PK Nuclear Membr Pat TNP PK Speckled Pattern TNP PK Centromere Pattern TNP 09/04/19 09/04/19 09/04/19 05:46 06:05 06:05 WBC 5.1 RBC 3.31 L Hgb 8.6 L Hct 26.7 L MCV 80.8 MCH 26.1 MCHC 32.3 RDW 15.0 Plt Count 265 MPV 8.0 Sodium 134 L Potassium 4.6 Chloride 104 Carbon Dioxide 23 Anion Gap 7 L BUN 39.7 H Creatinine 2.5 H Est GFR (CKD-EPI)AfAm 31.62 Est GFR (CKD-EPI)NonAf 27.28 POC Glucometer 116 Random Glucose 110 H Calcium 7.6 L Magnesium 1.6 L Total Bilirubin 0.3 AST 14 L ALT 17 Alkaline Phosphatase 161 H Total Protein 5.6 L Albumin 2.1 L PK Screen PK Homogeneous Pattern PK Nucleolar Pattern PK Spindle Elen Pattern PK Midbody Pattern PK Centriole Pattern PK Nuclear Dot Pattern PK PCNA Pattern PK Nuclear Membr Pat PK Speckled Pattern PK Centromere Pattern Active Medications Generic Name Dose Route Start Last Admin Trade Name Freq PRN Reason Stop Dose Admin Acetaminophen 650 mg 09/03/19 15:18 09/03/19 15:25 Tylenol - PO 650 mg Q6H PRN Administration FEVER Amlodipine Besylate 10 mg 09/01/19 10:00 09/04/19 09:51 Norvasc - PO 10 mg DAILY [facility] Administration Bisacodyl 10 mg 08/31/19 05:01 Dulcolax Suppository - RC PRN PRN CONSTIPATION Guaifenesin/Codeine Phosphate 10 ml 09/03/19 15:18 09/04/19 09:51 Robitussin Ac - PO 10 ml Q8H PRN Administration COUGH Heparin Sodium (Porcine) 5,000 unit 08/31/19 14:00 09/04/19 06:13 Heparin - SQ 5,000 unit TID [facility] Administration Insulin Aspart 1 vial 08/31/19 07:00 09/04/19 06:13 Novolog Vial Sliding Scale - SQ Not Given ACHS [facility] Protocol Magnesium Oxide 400 mg 09/04/19 10:00 09/04/19 09:51 Mag-Ox - PO 400 mg BID [facility] Administration Metoprolol Succinate 50 mg 09/02/19 10:00 09/04/19 09:51 Toprol Xl - PO 50 mg BID [facility] Administration ASSESSMENT/PLAN: This is a 59 year old man with a history of HTN, hyperlipidemia, CAD, chronic diastolic heart failure, type 2 DM, stage 3 CKD, BPH with bladder outlet obstruction, 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 1. Acute on chronic systolic and diastolic heart failure - Improving - Echo shows borderline dilated LV, mild concentric LVH, severe global LV hypokinesis, LVEF 30%, mild MR, mild to moderate TR, trace AR, RVSP 42mmHg - Hold Lasix secondary to increased BUN, creatinine 2. Hyperkalemia - Improved 3. Hypomagnesemia - Supplement magnesium 4. Acute kidney injury - Secondary to diuresis - Hold Lasix and monitor BUN, creatinine 5. Stage 3 CKD 6. Iron deficiency anemia - Stool negative for occult blood - Hgb stable 7. Hematuria, nephrotic range proteinuria - UA shows 1+ blood with 9 RBC, 3+ protein - US shows normal kidneys - ANCA, SPEP, PK pending 8. HTN - Continue Norvasc, Toprol XL 9. Hyperlipidemia - On no medication 10. CAD - Continue Toprol XL 11. Type 2 DM - Glipizide held - Continue Novolog sliding scale 12. BPH 13. Obesity with BMI 37.8 Visit type - Emergency Visit Emergency Visit: Yes ED Registration Date: 08/30/19 Care time: The patient presented to the Emergency Department on the above date and was hospitalized for further evaluation of their emergent condition. - New Patient This patient is new to me today: No - Critical Care Critical Care patient: No - Discharge Referral Referred to [facility] No
[2019-09-04] MEDS: BENZOCAINE/MENTH/CETYLPYRD CL 1 EACH LOZENGE MM PRN (17:18)
--- NOTE | 2019-09-04 19:12 | PN ---
Progress Note, Physician History of Present Illness: Pt seen and examined at bedside. He still complains of lower ext edema. - Current Medication List Current Medications: Active Medications Acetaminophen (Tylenol -) 650 mg PO Q6H PRN PRN Reason: FEVER Last Admin: 09/03/19 15:25 Dose: 650 mg Amlodipine Besylate (Norvasc -) 10 mg PO DAILY [facility] Last Admin: 09/04/19 09:51 Dose: 10 mg Benzocaine/Menthol (Cepacol Lozenge -) 1 each MM Q2H PRN PRN Reason: SORE THROAT Last Admin: 09/04/19 17:18 Dose: 1 each Bisacodyl (Dulcolax Suppository -) 10 mg RC PRN PRN PRN Reason: CONSTIPATION Guaifenesin/Codeine Phosphate (Robitussin Ac -) 10 ml PO Q8H PRN PRN Reason: COUGH Last Admin: 09/04/19 09:51 Dose: 10 ml Heparin Sodium (Porcine) (Heparin -) 5,000 unit SQ TID [facility] Last Admin: 09/04/19 15:45 Dose: 5,000 unit Insulin Aspart (Novolog Vial Sliding Scale -) 1 vial SQ ACHS [facility]; Protocol Last Admin: 09/04/19 17:18 Dose: Not Given Magnesium Oxide (Mag-Ox -) 400 mg PO BID [facility] Last Admin: 09/04/19 09:51 Dose: 400 mg Metoprolol Succinate (Toprol Xl -) 50 mg PO BID [facility] Last Admin: 09/04/19 09:51 Dose: 50 mg - Objective Vital Signs: Vital Signs Temperature 98.7 F 09/04/19 18:00 Pulse Rate 70 09/04/19 18:00 Respiratory Rate 19 09/04/19 18:00 Blood Pressure 114/57 L 09/04/19 18:00 O2 Sat by Pulse Oximetry (%) 99 09/04/19 09:00 Constitutional: Yes: Calm Eyes: Yes: Conjunctiva Clear HENT: Yes: Atraumatic Neck: Yes: Supple Cardiovascular: Yes: S1, S2 Respiratory: Yes: CTA Bilaterally Gastrointestinal: Yes: Soft Genitourinary: Yes: WNL Edema: Yes Edema: LLE: 2+, RLE: 2+ Neurological: Yes: Oriented Psychiatric: Yes: Oriented Labs: CBC, BMP 09/04/19 06:05 09/04/19 06:05 Problem List - Problems (1) CKD (chronic kidney disease) Code(s): N18.9 - CHRONIC KIDNEY DISEASE, UNSPECIFIED Qualifiers: Chronic kidney disease stage: unspecified stage Qualified Code(s): N18.9 - Chronic kidney disease, unspecified (2) Edema Code(s): R60.9 - EDEMA, UNSPECIFIED Qualifiers: Edema type: generalized Qualified Code(s): R60.1 - Generalized edema (3) CHF (congestive heart failure) Code(s): I50.9 - HEART FAILURE, UNSPECIFIED Qualifiers: Heart failure type: unspecified Heart failure chronicity: chronic Qualified Code(s): I50.9 - Heart failure, unspecified Assessment/Plan Current Medications Generic Name Dose Route Start Last Admin Trade Name Freq PRN Reason Stop Dose Admin Acetaminophen 650 mg 09/03/19 15:18 09/03/19 15:25 Tylenol - PO 650 mg Q6H PRN Administration FEVER Amlodipine Besylate 10 mg 09/01/19 10:00 09/04/19 09:51 Norvasc - PO 10 mg DAILY [facility] Administration Benzocaine/Menthol 1 each 09/04/19 15:59 09/04/19 17:18 Cepacol Lozenge - MM 1 each Q2H PRN Administration SORE THROAT Bisacodyl 10 mg 08/31/19 05:01 Dulcolax Suppository - RC PRN PRN CONSTIPATION Guaifenesin/Codeine Phosphate 10 ml 09/03/19 15:18 09/04/19 09:51 Robitussin Ac - PO 10 ml Q8H PRN Administration COUGH Heparin Sodium (Porcine) 5,000 unit 08/31/19 14:00 09/04/19 15:45 Heparin - SQ 5,000 unit TID [facility] Administration Insulin Aspart 1 vial 08/31/19 07:00 09/04/19 17:18 Novolog Vial Sliding Scale - SQ Not Given ACHS [facility] Protocol Magnesium Oxide 400 mg 09/04/19 10:00 09/04/19 09:51 Mag-Ox - PO 400 mg BID [facility] Administration Metoprolol Succinate 50 mg 09/02/19 10:00 09/04/19 09:51 Toprol Xl - PO 50 mg BID [facility] Administration Impression 1. Anasarca 2. Diastolic HF 3. CKD stage 3 4. Metabolic acidosis 5. Anemia 6. Proteinuria - nephrotic Plan - lasix on hold as slot tag inserter gabrielle to 2.5 - repeat labs in am - replace mag and monitor - follow serologies - cardio input appreciated - follow spep - possible biopsy once stable
[2019-09-05] MEDS: HEPARIN NA (PORCINE) 5,000 UNITS/ML 1ML VIAL SQ SCH ×3 (05:39→21:48)
[2019-09-05] MEDS: INSULIN SLIDING SCALE (NOVOLOG) 1 VIAL SQ SCH ×4 (06:45→22:00)
[2019-09-05 07:56] LABS: CALCIUM 7.1 mg/dL (8.5-10.1); CREATININE 2.8 mg/dL (0.55-1.3); MAGNESIUM 1.9 mg/dL (1.8-2.4); POTASSIUM 4.8 mmol/L (3.5-5.1)
[2019-09-05 08:04] LABS: HEMATOCRIT 25.2 % (35.4-49); HEMOGLOBIN 8.1 GM/dL (11.7-16.9); MCH 25.9 pg (25.7-33.7); MCHC 32.3 g/dl (32.0-35.9); MEAN CELL VOLUME 80.2 fl (80-96); MEAN PLT VOLUME 8.2 fl (7.5-11.1); PLATELET COUNT 238 K/MM3 (134-434); RBC 3.14 M/mm3 (4.00-5.60); RDW 14.8 % (11.9-15.9)
--- NOTE | 2019-09-05 09:41 | PN ---
Progress Note, Physician Chief Complaint: sob History of Present Illness: no orthopnea no sob walking to bathroom--thinks he would be breathless if walked long distance no cp, palp no cigs - Current Medication List Current Medications: Active Medications Acetaminophen (Tylenol -) 650 mg PO Q6H PRN PRN Reason: FEVER Last Admin: 09/03/19 15:25 Dose: 650 mg Amlodipine Besylate (Norvasc -) 10 mg PO DAILY [facility] Last Admin: 09/04/19 09:51 Dose: 10 mg Benzocaine/Menthol (Cepacol Lozenge -) 1 each MM Q2H PRN PRN Reason: SORE THROAT Last Admin: 09/04/19 17:18 Dose: 1 each Bisacodyl (Dulcolax Suppository -) 10 mg RC PRN PRN PRN Reason: CONSTIPATION Guaifenesin/Codeine Phosphate (Robitussin Ac -) 10 ml PO Q8H PRN PRN Reason: COUGH Last Admin: 09/04/19 09:51 Dose: 10 ml Heparin Sodium (Porcine) (Heparin -) 5,000 unit SQ TID [facility] Last Admin: 09/05/19 05:39 Dose: 5,000 unit Insulin Aspart (Novolog Vial Sliding Scale -) 1 vial SQ ACHS [facility]; Protocol Last Admin: 09/05/19 06:45 Dose: Not Given Magnesium Oxide (Mag-Ox -) 400 mg PO BID [facility] Last Admin: 09/04/19 21:38 Dose: 400 mg Metoprolol Succinate (Toprol Xl -) 50 mg PO BID [facility] Last Admin: 09/04/19 21:38 Dose: 50 mg - Objective Vital Signs: Vital Signs Temperature 98.6 F 09/05/19 08:39 Pulse Rate 66 09/05/19 08:39 Respiratory Rate 20 09/05/19 08:39 Blood Pressure 148/97 09/05/19 08:39 O2 Sat by Pulse Oximetry (%) 99 09/04/19 21:00 Constitutional: Yes: No Distress, Calm Eyes: No: Sclera Icterus HENT: No: Nasal Congestion Cardiovascular: Yes: Regular Rate and Rhythm, JVD (almost to jaw), S1, S2, Other (PMI non diplaced). No: Gallop, Murmur Respiratory: Yes: CTA Bilaterally, Rales (bases). No: Accessory Muscle Use, Wheezes Gastrointestinal: Yes: Normal Bowel Sounds, Soft. No: Tenderness Musculoskeletal: Yes: Other (No kyphosis) Extremities: No: Cold, Cyanosis Edema: Yes (2-3+ pretib) Integumentary: No: Jaundice Neurological: Yes: Alert, Oriented (x3) Psychiatric: No: Agitated Labs: CBC, BMP 09/05/19 06:20 09/05/19 06:20 Assessment/Plan cath 02/2018 nonobstructive CAD, nl EF Echo 09/15: mild conc LVH; severe, global LV hypo/EF 30%. nl RV. mild-mod TR. RVSP 42. tele: NSR 59M h/o DM, HTN, HLD, s/p L great toe amputation and partial 2nd toe amputation p/w toe ulcer and bilateral lower extremity swelling Acute on chronic systolic HF exacerbation - BNP >38186 - echo here with severe decreased lvef, new since 2018 echo, likely NICM given recent unremarkable cath - lasix 40 iv bid here--held 09/04 given sCreat up to 2.5--bun/creat up further today. wt down 222 to 202. - progressive pre-renal picture with diuresis, despite marked JVD and edema still--low output. needs inotrope-assisted diuresis, start milrinone - monitor lytes, replete K/Mag to usual strict targets - cont toprol (ok with milrinone) - consider outpt sleep study - defer RAAS blockers until renal fxn stabilizes s/p diuresis - will need EF surveillance after 3 mo optimized GDMT--rec ICD at that time if EF not improved JASWINDER/CKD - Rising sCreat to 2.5 - starting inotropes--as above HTN: - bp reasonable - cont bb - JORGE +/- spirono later, as above
[2019-09-05] MEDS: guaiFENesin/CODEINE 10 ML UNIT-DOSE CUPS PO PRN ×2 (10:10→18:20)
[2019-09-05] MEDS: amLODIPine BESYLATE 10 MG TABLET (FP) PO SCH (10:10)
[2019-09-05] MEDS: MAGNESIUM OXIDE 400 MG TABLET (FP) PO SCH ×2 (10:10→21:48)
--- NOTE | 2019-09-05 12:33 | PN ---
Progress Note (short form) - Note Progress Note: Renal follow up for CKD/Fluid overload Seen and examined at the bedside awake and alert sob is slightly better legs remain swollen but weights improved making urine no N/V/D, abd pain, fever or chills Vital Signs Temperature 98.6 F 09/05/19 08:39 Pulse Rate 66 09/05/19 08:39 Respiratory Rate 20 09/05/19 08:39 Blood Pressure 148/97 09/05/19 08:39 O2 Sat by Pulse Oximetry (%) 99 09/04/19 21:00 Intake & Output 09/02/19 09/03/19 09/04/19 09/05/19 23:59 23:59 23:59 23:59 Intake Total 400 1000 390 300 Output Total 2800 2550 1650 650 Balance -2400 -1550 -1260 -350 Weight 100.698 kg 96.434 kg 96.797 kg 91.898 kg NAD RRR some rales at lung bases soft NT/ND ++ upper and lower extremity edema no cyanosis or clubbing CBC, BMP 09/05/19 06:20 09/05/19 06:20 Current Medications Acetaminophen (Tylenol -) 650 mg PO Q6H PRN PRN Reason: FEVER Last Admin: 09/03/19 15:25 Dose: 650 mg Amlodipine Besylate (Norvasc -) 10 mg PO DAILY [facility] Last Admin: 09/05/19 10:10 Dose: 10 mg Benzocaine/Menthol (Cepacol Lozenge -) 1 each MM Q2H PRN PRN Reason: SORE THROAT Last Admin: 09/04/19 17:18 Dose: 1 each Bisacodyl (Dulcolax Suppository -) 10 mg RC PRN PRN PRN Reason: CONSTIPATION Furosemide (Lasix Injection -) 40 mg IVPUSH BID@0600,1400 [facility] Guaifenesin/Codeine Phosphate (Robitussin Ac -) 10 ml PO Q8H PRN PRN Reason: COUGH Last Admin: 09/05/19 10:10 Dose: 10 ml Heparin Sodium (Porcine) (Heparin -) 5,000 unit SQ TID [facility] Last Admin: 09/05/19 05:39 Dose: 5,000 unit Milrinone Lactate/Dextrose (Milrinone 20mg/100ml Ivpb -) 20,000 mcg in 100 mls @ 6.892 mls/hr IVPB TITR [facility] Insulin Aspart (Novolog Vial Sliding Scale -) 1 vial SQ ACHS [facility]; Protocol Last Admin: 09/05/19 12:06 Dose: Not Given Magnesium Oxide (Mag-Ox -) 400 mg PO BID [facility] Last Admin: 09/05/19 10:10 Dose: 400 mg Metoprolol Succinate (Toprol Xl -) 50 mg PO BID [facility] Last Admin: 09/05/19 10:10 Dose: 50 mg 59 year old gentleman with history of CKD stage 3, hypertension, DM type 2, BPH, hyperlipidemia who presented from home with shortness of breath, leg and arm swelling and admitted for diastolic HF. 1. Anasarca 2. Diastolic HF 3. CKD stage 3 4. Metabolic acidosis 5. Anemia 6. Proteinuria Fluid overload likely multifactorial from diastolic HF/CKD/Proteinuria UPCR is 11, in nephrotic range, PK is positive, will check C3/C4, anti-DS DNA ab can consider renal biopsy as an outpatient once volume status improved Continue IV Lasix as ordered as pt remains volume overloaded started on Milrinone as per cardiology no signs of uremia, hyperkalmeia or overt acidosis Low K diet Trend renal function and electrolytes daily Thank you Rufino Rudolph DO
--- NOTE | 2019-09-05 13:59 | PN ---
Physical Exam: SUBJECTIVE: Patient seen and examined. He denies SOB. Cough is a little better. OBJECTIVE: Vital Signs Period Temp Pulse Resp BP Sys/Garner Pulse Ox Last 24 Hr 98.6 F-99.8 F 63-76 18-20 114-166/57-97 99 GENERAL: The patient is awake, alert, and fully oriented, in no acute distress. LUNGS: Breath sounds equal, clear to auscultation bilaterally, no wheezes, no crackles, no accessory muscle use. HEART: Regular rate and rhythm, S1, S2 without murmur, rub or gallop. ABDOMEN: Obese, soft, nontender, nondistended, normoactive bowel sounds, no guarding, no rebound, no hepatosplenomegaly, no masses. EXTREMITIES: 2+ pulses, warm, well-perfused, 3+ edema. Laboratory Results - last 24 hr 09/04/19 09/04/19 09/05/19 17:17 22:40 06:20 WBC 5.0 RBC 3.14 L Hgb 8.1 L Hct 25.2 L MCV 80.2 MCH 25.9 MCHC 32.3 RDW 14.8 Plt Count 238 MPV 8.2 Sodium Potassium Chloride Carbon Dioxide Anion Gap BUN Creatinine Est GFR (CKD-EPI)AfAm Est GFR (CKD-EPI)NonAf POC Glucometer 137 152 Random Glucose Calcium Magnesium 09/05/19 09/05/19 09/05/19 06:20 06:42 12:05 WBC RBC Hgb Hct MCV MCH MCHC RDW Plt Count MPV Sodium 133 L Potassium 4.8 Chloride 103 Carbon Dioxide 23 Anion Gap 7 L BUN 54.0 H Creatinine 2.8 H Est GFR (CKD-EPI)AfAm 27.57 Est GFR (CKD-EPI)NonAf 23.79 POC Glucometer 81 124 Random Glucose 83 Calcium 7.1 L Magnesium 1.9 Active Medications Generic Name Dose Route Start Last Admin Trade Name Freq PRN Reason Stop Dose Admin Acetaminophen 650 mg 09/03/19 15:18 09/03/19 15:25 Tylenol - PO 650 mg Q6H PRN Administration FEVER Amlodipine Besylate 10 mg 09/01/19 10:00 09/05/19 10:10 Norvasc - PO 10 mg DAILY [facility] Administration Benzocaine/Menthol 1 each 09/04/19 15:59 09/04/19 17:18 Cepacol Lozenge - MM 1 each Q2H PRN Administration SORE THROAT Bisacodyl 10 mg 08/31/19 05:01 Dulcolax Suppository - RC PRN PRN CONSTIPATION Furosemide 40 mg 09/05/19 13:00 Lasix Injection - IVPUSH BID@0600,1400 [facility] Guaifenesin/Codeine Phosphate 10 ml 09/03/19 15:18 09/05/19 10:10 Robitussin Ac - PO 10 ml Q8H PRN Administration COUGH Heparin Sodium (Porcine) 5,000 unit 08/31/19 14:00 09/05/19 05:39 Heparin - SQ 5,000 unit TID [facility] Administration Milrinone Lactate/Dextrose 20,000 mcg in 100 mls @ 6.892 mls/hr 09/05/19 11: 30 Milrinone 20mg/100ml Ivpb - IVPB TITR [facility] 0.25 MCG/KG/MIN Insulin Aspart 1 vial 08/31/19 07:00 09/05/19 12:06 Novolog Vial Sliding Scale - SQ Not Given ACHS [facility] Protocol Magnesium Oxide 400 mg 09/04/19 10:00 09/05/19 10:10 Mag-Ox - PO 400 mg BID [facility] Administration Metoprolol Succinate 50 mg 09/02/19 10:00 09/05/19 10:10 Toprol Xl - PO 50 mg BID [facility] Administration ASSESSMENT/PLAN: This is a 59 year old man with a history of HTN, hyperlipidemia, CAD, chronic diastolic heart failure, type 2 DM, stage 3 CKD, BPH with bladder outlet obstruction, 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 1. Acute on chronic systolic and diastolic heart failure - Echo shows borderline dilated LV, mild concentric LVH, severe global LV hypokinesis, LVEF 30%, mild MR, mild to moderate TR, trace AR, RVSP 42mmHg - Continue Lasix IV - Milrinone being started 2. Hyperkalemia - Improved 3. Hypomagnesemia - Continue magnesium supplementation 4. Acute kidney injury - Secondary to diuresis 5. Stage 3 CKD 6. Iron deficiency anemia - Stool negative for occult blood - Hgb stable 7. Hematuria, nephrotic range proteinuria - UA shows 1+ blood with 9 RBC, 3+ protein - US shows normal kidneys - PK (+) - complement, anti-ds-DNA Ab pending - ANCA, SPEP pending 8. HTN - Continue Norvasc, Toprol XL 9. Hyperlipidemia - On no medication 10. CAD - Continue Toprol XL 11. Type 2 DM - Glipizide held - Continue Novolog sliding scale 12. BPH 13. Obesity with BMI 35.9 Visit type - Emergency Visit Emergency Visit: Yes ED Registration Date: 08/30/19 Care time: The patient presented to the Emergency Department on the above date and was hospitalized for further evaluation of their emergent condition. - New Patient This patient is new to me today: No - Critical Care Critical Care patient: No - Discharge Referral Referred to [facility] Med [facility] No
[2019-09-05] MEDS: FUROSEMIDE 40 MG/4 ML INJECTABLE VIAL IVPUSH SCH (14:54)
[2019-09-05] MEDS: BENZOCAINE/MENTH/CETYLPYRD CL 1 EACH LOZENGE MM PRN (15:03)
--- NOTE | 2019-09-05 16:45 | CONSULT ---
Consultation: REQUESTING PROVIDER: Dr. Caal CONSULT REQUEST: We have been asked to medically evaluate this patient for ( specify). HISTORY OF PRESENT ILLNESS: Patient is a 59 year old male with PMH of CHF, CKD, DM, HTN, BPH, and HLD who presents with SOB and progressive BL upper and lower extremity swelling for 3 months. He also complains of a chronic dry cough for the past 6 months. Pt's symptoms are positional and exacerbated on exertion. He uses 1 pillow to sleep. He is able to walk 1 block before needing to rest. His cough has been dry and he denies any hemoptysis or fevers. Pt admits that he has not been taking his home medications for diabetes, HTN, or his lasix for 2 weeks prior to admission because he felt they were not helping. Pt was admitted to [facility] in April 2019 for similar symptoms and was treated with lasix and symptoms improved. At the time of consultation, pt denied any current SOB at rest (only on exertion ) and denies any chest pain, palpitations, abd pain, fevers. Continues to have nonproductive cough. REVIEW OF SYSTEMS: CONSTITUTIONAL: Absent: fever, chills, diaphoresis, generalized weakness, malaise, loss of appetite, weight change HEENT: Absent: rhinorrhea, nasal congestion, throat pain, throat swelling, difficulty swallowing, mouth swelling, ear pain, eye pain, visual changes CARDIOVASCULAR: peripheral edema Absent: chest pain, syncope, palpitations, irregular heart rate, lightheadedness RESPIRATORY: cough, shortness of breath, dyspnea with exertion, orthopnea Absent: wheezing, stridor, hemoptysis GASTROINTESTINAL: Absent: abdominal pain, abdominal distension, nausea, vomiting, diarrhea, constipation, melena, hematochezia GENITOURINARY: Absent: dysuria, frequency, urgency, hesitancy, hematuria, flank pain, genital pain MUSCULOSKELETAL: Absent: myalgia, arthralgia, joint swelling, back pain, neck pain SKIN: Absent: rash, itching, pallor HEMATOLOGIC/IMMUNOLOGIC: Absent: easy bleeding, easy bruising, lymphadenopathy, frequent infections ENDOCRINE: Absent: unexplained weight gain, unexplained weight loss, heat intolerance, cold intolerance NEUROLOGIC: Absent: headache, focal weakness or paresthesias, dizziness, unsteady gait, seizure, mental status changes, bladder or bowel incontinence PSYCHIATRIC: Absent: anxiety, depression, suicidal or homicidal ideation, hallucinations. PHYSICAL EXAMINATION Vital Signs - 24 hr 09/04/19 09/04/19 09/04/19 18:00 21:00 21:42 Temperature 98.7 F 98.9 F Pulse Rate 70 75 Respiratory 19 19 19 Rate Blood Pressure 114/57 L 152/86 O2 Sat by Pulse 99 Oximetry (%) 09/05/19 09/05/19 09/05/19 02:00 05:41 08:39 Temperature 99.8 F H 98.7 F 98.6 F Pulse Rate 70 63 66 Respiratory 18 18 20 Rate Blood Pressure 140/80 147/79 148/97 O2 Sat by Pulse Oximetry (%) 09/05/19 14:14 Temperature 97.8 F Pulse Rate 61 Respiratory 18 Rate Blood Pressure 136/78 O2 Sat by Pulse Oximetry (%) GENERAL: Awake, alert, and fully oriented, in no acute distress. HEAD: Normal with no signs of trauma. EYES: Pupils equal, round and reactive to light, extraocular movements intact, sclera anicteric, conjunctiva clear. No lid lag. EARS, NOSE, THROAT: Ears normal, nares patent, oropharynx clear without exudates. Moist mucous membranes. NECK: Normal range of motion, supple without lymphadenopathy, JVD, or masses. LUNGS: Breath sounds equal, clear to auscultation bilaterally. No wheezes, scant crackles. Tachypneic. HEART: Regular rate and rhythm, normal S1 and S2 without murmur, rub or gallop. ABDOMEN: Soft, nontender, not distended, normoactive bowel sounds, no guarding, no rebound, no masses. No hepatomegaly or splenomegaly. MUSCULOSKELETAL: Normal range of motion at all joints. No bony deformities or tenderness. No CVA tenderness. UPPER EXTREMITIES: 2+ pulses, warm, well-perfused. No cyanosis. No clubbing. Cap refill <2 seconds. No peripheral edema. LOWER EXTREMITIES: 2+ pulses, warm, well-perfused. No calf tenderness. 3+ peripheral pitting edema. NEUROLOGICAL: Cranial nerves II-XII intact. Normal speech. Normal gait. SKIN: Warm, dry, normal turgor, no rashes or lesions noted. Laboratory Results - last 24 hr 09/04/19 09/04/19 09/05/19 17:17 22:40 06:20 WBC 5.0 RBC 3.14 L Hgb 8.1 L Hct 25.2 L MCV 80.2 MCH 25.9 MCHC 32.3 RDW 14.8 Plt Count 238 MPV 8.2 Sodium Potassium Chloride Carbon Dioxide Anion Gap BUN Creatinine Est GFR (CKD-EPI)AfAm Est GFR (CKD-EPI)NonAf POC Glucometer 137 152 Random Glucose Calcium Magnesium 09/05/19 09/05/19 09/05/19 06:20 06:42 12:05 WBC RBC Hgb Hct MCV MCH MCHC RDW Plt Count MPV Sodium 133 L Potassium 4.8 Chloride 103 Carbon Dioxide 23 Anion Gap 7 L BUN 54.0 H Creatinine 2.8 H Est GFR (CKD-EPI)AfAm 27.57 Est GFR (CKD-EPI)NonAf 23.79 POC Glucometer 81 124 Random Glucose 83 Calcium 7.1 L Magnesium 1.9 Active Medications Acetaminophen (Tylenol -) 650 mg PO Q6H PRN PRN Reason: FEVER Last Admin: 09/03/19 15:25 Dose: 650 mg Amlodipine Besylate (Norvasc -) 10 mg PO DAILY [facility] Last Admin: 09/05/19 10:10 Dose: 10 mg Benzocaine/Menthol (Cepacol Lozenge -) 1 each MM Q2H PRN PRN Reason: SORE THROAT Last Admin: 09/05/19 15:03 Dose: 1 each Bisacodyl (Dulcolax Suppository -) 10 mg RC PRN PRN PRN Reason: CONSTIPATION Chlorhexidine Gluconate (Hibiclens For Decolonization -) 1 applic TP [facility] Furosemide (Lasix Injection -) 40 mg IVPUSH BID@0600,1400 [facility] Last Admin: 09/05/19 14:54 Dose: 40 mg Guaifenesin/Codeine Phosphate (Robitussin Ac -) 10 ml PO Q8H PRN PRN Reason: COUGH Last Admin: 09/05/19 10:10 Dose: 10 ml Heparin Sodium (Porcine) (Heparin -) 5,000 unit SQ TID [facility] Last Admin: 09/05/19 14:54 Dose: 5,000 unit Milrinone Lactate/Dextrose (Milrinone 20mg/100ml Ivpb -) 20,000 mcg in 100 mls @ 6.892 mls/hr IVPB TITR [facility] Insulin Aspart (Novolog Vial Sliding Scale -) 1 vial SQ ACHS [facility]; Protocol Last Admin: 09/05/19 12:06 Dose: Not Given Magnesium Oxide (Mag-Ox -) 400 mg PO BID [facility] Last Admin: 09/05/19 10:10 Dose: 400 mg Metoprolol Succinate (Toprol Xl -) 50 mg PO BID [facility] Last Admin: 09/05/19 10:10 Dose: 50 mg Mupirocin (Bactroban Ointment (For Decolonization) -) 1 applic NS BID [facility] Stop: 09/10/19 21:59 ASSESSMENT/PLAN: Patient is a 59 year old male with PMH of CHF, CKD, DM, HTN, BPH, and HLD who presents with SOB and progressive BL upper and lower extremity swelling for 3 months. Neuro -Pt is awake, alert, and oriented x3 Cardiovascular -Acute on chronic diastolic HF -Cont IV lasix 40mg BID (held yesterday as pt's creatinine increased 2.5) -Start milrinone drip as pt's EF is 30% -Cardiology following (Dr. Orellana) -Echo (08/31/19): severe decreased LVEF, 30%. Likely NICM given recent unremarkable cath -Hx of HTN, cont home meds: norvasc, toprol Pulmonary -SOB improving with IV lasix -Pt cont to have dry cough. Cont robitussin -F/u CXR GI -No acute problems Renal -JASWINDER on CKD stage 3. Likely multifactorial -Creatinine increased yesterday, lasix on 09/04. Will monitor closely Endo -Hx of DM -Glipizide held. SSI and frequent BGM F: No standing fluids E: Replete lytes prn N: Diabetic/sodium diet Dispo: We will continue to follow the patient. Thank you for this consultative opportunity. Visit type - Emergency Visit Emergency Visit: No - New Patient This patient is new to me today: Yes Date on this admission: 09/10/19 - Critical Care Critical Care patient: Yes Total Critical Care Time (in minutes): 45 Critical Care Statement: The care of this patient involved high complexity decision making to prevent further life threatening deterioration of the patient 's condition and/or to evaluate & treat vital organ system(s) failure or risk of failure. ATTENDING PHYSICIAN STATEMENT I saw and evaluated the patient. I reviewed the resident's note and discussed the case with the resident. I agree with the resident's findings and plan as documented. SUBJECTIVE: OBJECTIVE: ASSESSMENT AND PLAN:
[2019-09-05] MEDS: MILRINONE 20MG/100ML IVPB - 20,000 MCG/100 ML ML IVPB SCH (19:41)
[2019-09-05] MEDS ORDERED: MUPIROCIN 2% TOPICAL OINTMENT FOR DECOLONIZATION NS SCH (22:00)
[2019-09-05] MEDS ORDERED: CHLORHEXIDINE GLUCONATE 4% CLEANSER FOR DECOLONIZATION TP SCH (22:00)
[2019-09-06] MEDS: guaiFENesin/CODEINE 5 ML UNIT-DOSE CUPS PO PRN ×2 (02:21→22:34)
[2019-09-06] MEDS: INSULIN SLIDING SCALE (NOVOLOG) 1 VIAL SQ SCH ×4 (06:06→22:35)
[2019-09-06] MEDS: FUROSEMIDE 40 MG/4 ML INJECTABLE VIAL IVPUSH SCH ×2 (06:10→14:42)
[2019-09-06] MEDS: HEPARIN NA (PORCINE) 5,000 UNITS/ML 1ML VIAL SQ SCH ×3 (06:10→22:35)
[2019-09-06 06:57] LABS: HEMATOCRIT 24.6 % (35.4-49); MCH 25.8 pg (25.7-33.7); MCHC 32.4 g/dl (32.0-35.9); MEAN CELL VOLUME 79.7 fl (80-96); MEAN PLT VOLUME 8.4 fl (7.5-11.1); PLATELET COUNT 235 K/MM3 (134-434); RBC 3.09 M/mm3 (4.00-5.60); RDW 14.9 % (11.9-15.9); WHITE BLOOD COUNT 5.2 K/mm3 (4.0-10.0)
[2019-09-06 07:21] LABS: BLOOD UREA NITROGEN 61.2 mg/dL (7-18); CREATININE 2.9 mg/dL (0.55-1.3); MAGNESIUM 1.8 mg/dL (1.8-2.4); PHOSPHOROUS 5.3 mg/dL (2.5-4.9); POTASSIUM 4.4 mmol/L (3.5-5.1)
--- NOTE | 2019-09-06 07:41 | PN ---
Physical Exam: SUBJECTIVE: Patient seen and examined breathing is better legs still edematous denie snay fever , chills or cp. OBJECTIVE: Vital Signs Period Temp Pulse Resp BP Sys/Garner Pulse Ox Last 24 Hr 97.8 F-99.5 F 61-76 18-20 86-152/47-97 99-99 GENERAL: AAOx3 in NAD HEAD: NC/AT EYES: EOMI, Conjunctiva clear, sclera anicteric ENT: moist mucous membrane NECK: Supple, no JVD LUNGS: bibasilar crackles HEART: RRR, NSR, normal s1, s2, murmur no M/R/G ABDOMEN: Soft, ND, NT, +BS 4 Q, no CVA Tenderness LOWER EXTREMITIES: +2 edema, +2DP pulse, NEUROLOGICAL: No focal deficit. Normal speech. gait not observed. PSYCHIATRIC: Cooperative. Good eye contact. Appropriate mood and affect. SKIN: Warm, dry, Laboratory Results - last 24 hr 09/02/19 09/05/19 09/05/19 19:30 06:20 06:20 WBC 5.0 RBC 3.14 L Hgb 8.1 L Hct 25.2 L MCV 80.2 MCH 25.9 MCHC 32.3 RDW 14.8 Plt Count 238 MPV 8.2 Sodium 133 L Potassium 4.8 Chloride 103 Carbon Dioxide 23 Anion Gap 7 L BUN 54.0 H Creatinine 2.8 H Est GFR (CKD-EPI)AfAm 27.57 Est GFR (CKD-EPI)NonAf 23.79 POC Glucometer Random Glucose 83 Calcium 7.1 L Phosphorus Magnesium 1.9 Total Protein (PEP) 5.6 L Albumin (PEP) 2.3 L Globulin 3.3 Albumin/Globulin Ratio 0.7 Beta Globulins 0.9 MARGA M-Mo Not observed 09/05/19 09/05/19 09/05/19 12:05 17:27 21:59 WBC RBC Hgb Hct MCV MCH MCHC RDW Plt Count MPV Sodium Potassium Chloride Carbon Dioxide Anion Gap BUN Creatinine Est GFR (CKD-EPI)AfAm Est GFR (CKD-EPI)NonAf POC Glucometer 124 140 155 Random Glucose Calcium Phosphorus Magnesium Total Protein (PEP) Albumin (PEP) Globulin Albumin/Globulin Ratio Beta Globulins MARGA M-Mo 09/06/19 09/06/19 09/06/19 05:20 05:20 05:55 WBC 5.2 RBC 3.09 L Hgb 8.0 L Hct 24.6 L MCV 79.7 L MCH 25.8 MCHC 32.4 RDW 14.9 Plt Count 235 MPV 8.4 Sodium 133 L Potassium 4.4 Chloride 102 Carbon Dioxide 22 Anion Gap 9 BUN 61.2 H Creatinine 2.9 H Est GFR (CKD-EPI)AfAm 26.42 Est GFR (CKD-EPI)NonAf 22.80 POC Glucometer 109 Random Glucose 106 Calcium 7.0 L Phosphorus 5.3 H Magnesium 1.8 Total Protein (PEP) Albumin (PEP) Globulin Albumin/Globulin Ratio Beta Globulins MARGA M-Mo Active Medications Generic Name Dose Route Start Last Admin Trade Name Freq PRN Reason Stop Dose Admin Acetaminophen 650 mg 09/03/19 15:18 09/03/19 15:25 Tylenol - PO 650 mg Q6H PRN Administration FEVER Amlodipine Besylate 10 mg 09/01/19 10:00 09/05/19 10:10 Norvasc - PO 10 mg DAILY [facility] Administration Benzocaine/Menthol 1 each 09/04/19 15:59 09/05/19 15:03 Cepacol Lozenge - MM 1 each Q2H PRN Administration SORE THROAT Bisacodyl 10 mg 08/31/19 05:01 Dulcolax Suppository - RC PRN PRN CONSTIPATION Chlorhexidine Gluconate 1 applic 09/05/19 22:00 Hibiclens For Decolonization - TP HS [facility] Furosemide 40 mg 09/05/19 13:00 09/06/19 06:10 Lasix Injection - IVPUSH 40 mg BID@0600,1400 [facility] Administration Guaifenesin/Codeine Phosphate 10 ml 09/06/19 01:54 09/06/19 02:21 Robitussin Ac - PO 10 ml Q8H PRN Administration COUGH Heparin Sodium (Porcine) 5,000 unit 08/31/19 14:00 09/06/19 06:10 Heparin - SQ 5,000 unit TID [facility] Administration Milrinone Lactate/Dextrose 20,000 mcg in 100 mls @ 6.892 mls/hr 09/05/19 11: 30 09/05/19 19:41 Milrinone 20mg/100ml Ivpb - IVPB 0.25 mcg/kg/min TITR [facility] 6.892 mls/hr Administration 0.25 MCG/KG/MIN Insulin Aspart 1 vial 08/31/19 07:00 09/06/19 06:06 Novolog Vial Sliding Scale - SQ Not Given ACHS [facility] Protocol Magnesium Oxide 400 mg 09/04/19 10:00 09/05/19 21:48 Mag-Ox - PO 400 mg BID [facility] Administration Metoprolol Succinate 50 mg 09/02/19 10:00 09/05/19 21:51 Toprol Xl - PO 50 mg BID [facility] Administration Mupirocin 1 applic 09/05/19 22:00 Bactroban Ointment (For Decolonization) - NS 09/10/19 21:59 BID [facility] CBC, BMP 09/06/19 05:20 09/06/19 05:20 ASSESSMENT/PLAN: This is a 59 year old man with a history of HTN, hyperlipidemia, CAD, chronic diastolic heart failure, type 2 DM, stage 3 CKD, BPH with bladder outlet obstruction, 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 #Acute on Systolic and Diastolic CHF exacerbation. * cont IV lasix 80mg BID * Monitor I&O, weight * echo with EF 30%, with severe LV global hypokinesis * FU CMP * FU cardio reccs #Stage 3 CKD * Creatinine 2. Likely at baseline * Monitor creatinine with diuresis #Anemia * likely from CKD * Previously diagnosed with iron deficiency * Hgb unchanged from 04/2019 * iron studies normal * fobt negative #Hematuria, proteinuria * Renal US results noted * Nephrology consult * urine protein to creatinine normal * Check PK, Hepatitis, HIV, RPR #HTN * Continue Norvasc, Toprol XL, Lasix #Hyperlipidemia On no medication #CAD * Continue Toprol XL * Continue aspirin if no evidence of GI bleeding #Type 2 DM * Hold glipizide * Fingersticks with Novolog sliding scale #BPH #Obesity with BMI 39.0 #FEN * fluid restriction * monitor * sodium diet Visit type - Emergency Visit Emergency Visit: Yes ED Registration Date: 08/30/19 Care time: The patient presented to the Emergency Department on the above date and was hospitalized for further evaluation of their emergent condition. - New Patient This patient is new to me today: Yes Date on this admission: 09/06/19 - Critical Care Critical Care patient: No ATTENDING PHYSICIAN STATEMENT I saw and evaluated the patient. I reviewed the resident's note and discussed the case with the resident. I agree with the resident's findings and plan as documented. SUBJECTIVE: OBJECTIVE: ASSESSMENT AND PLAN:
[2019-09-06] MEDS: amLODIPine BESYLATE 10 MG TABLET (FP) PO SCH (09:07)
[2019-09-06] MEDS: MAGNESIUM OXIDE 400 MG TABLET (FP) PO SCH ×2 (09:07→22:35)
--- NOTE | 2019-09-06 11:17 | PN ---
Progress Note (short form) - Note Progress Note: s: no sob but short distances, no chest pain, palps. no urine output since 5 AM per patient, lasix charted as given 6 AM no cigs Current Medications Acetaminophen (Tylenol -) 650 mg PO Q6H PRN PRN Reason: FEVER Last Admin: 09/03/19 15:25 Dose: 650 mg Amlodipine Besylate (Norvasc -) 10 mg PO DAILY [facility] Last Admin: 09/06/19 09:07 Dose: 10 mg Benzocaine/Menthol (Cepacol Lozenge -) 1 each MM Q2H PRN PRN Reason: SORE THROAT Last Admin: 09/05/19 15:03 Dose: 1 each Bisacodyl (Dulcolax Suppository -) 10 mg RC PRN PRN PRN Reason: CONSTIPATION Chlorhexidine Gluconate (Hibiclens For Decolonization -) 1 applic TP HS [facility] Furosemide (Lasix Injection -) 80 mg IVPUSH BID@0600,1400 [facility] Guaifenesin/Codeine Phosphate (Robitussin Ac -) 10 ml PO Q8H PRN PRN Reason: COUGH Last Admin: 09/06/19 02:21 Dose: 10 ml Heparin Sodium (Porcine) (Heparin -) 5,000 unit SQ TID [facility] Last Admin: 09/06/19 06:10 Dose: 5,000 unit Milrinone Lactate/Dextrose (Milrinone 20mg/100ml Ivpb -) 20,000 mcg in 100 mls @ 6.892 mls/hr IVPB TITR [facility] Last Admin: 09/05/19 19:41 Dose: 0.25 mcg/kg/min, 6.892 mls/hr Insulin Aspart (Novolog Vial Sliding Scale -) 1 vial SQ ACHS [facility]; Protocol Last Admin: 09/06/19 06:06 Dose: Not Given Magnesium Oxide (Mag-Ox -) 400 mg PO BID [facility] Last Admin: 09/06/19 09:07 Dose: 400 mg Metoprolol Succinate (Toprol Xl -) 50 mg PO BID [facility] Last Admin: 09/06/19 09:07 Dose: 50 mg Mupirocin (Bactroban Ointment (For Decolonization) -) 1 applic NS BID [facility] Stop: 09/10/19 21:59 Vital Signs Period Temp Pulse Resp BP Sys/Garner Pulse Ox Last 24 Hr 97.8 F-99.5 F 61-76 18-19 86-152/47-79 99 Constitutional: Yes: No Distress, Calm Eyes: No: Sclera Icterus HENT: No: Nasal Congestion Cardiovascular: Yes: Regular Rate and Rhythm, JVD (almost to jaw), S1, S2, Other (PMI non diplaced). No: Gallop, Murmur Respiratory: Yes: CTA Bilaterally, Rales (bases). No: Accessory Muscle Use, Wheezes Gastrointestinal: Yes: Normal Bowel Sounds, Soft. No: Tenderness Musculoskeletal: Yes: Other (No kyphosis) Extremities: No: Cold, Cyanosis Edema: Yes (2-3+ pretib) Integumentary: No: Jaundice Neurological: Yes: Alert, Oriented (x3) Psychiatric: No: Agitated Assessment/Plan cath 02/2018 nonobstructive CAD, nl EF Echo 09/15: mild conc LVH; severe, global LV hypo/EF 30%. nl RV. mild-mod TR. RVSP 42. tele: NSR 59M h/o DM, HTN, HLD, s/p L great toe amputation and partial 2nd toe amputation p/w toe ulcer and bilateral lower extremity swelling Acute on chronic systolic HF exacerbation - BNP >31740 - echo here with severe decreased lvef, new since 2018 echo, likely NICM given recent unremarkable cath - lasix 40 iv bid here--held 2/9 given sCreat up to 2.5--bun/creat up further 2/ 10 wt down 222 to 202. - 2/10 milrinone started, no increase in UOP and Cr rising ->2.9, wt up 202 -> 216 lbs ?reliable - continue milrinone - increase lasix to 80 mg IV BID - monitor lytes, replete K/Mag to usual strict targets - cont toprol (ok with milrinone) - consider outpt sleep study - defer RAAS blockers until renal fxn stabilizes s/p diuresis - will need EF surveillance after 3 mo optimized GDMT--rec ICD at that time if EF not improved JASWINDER/CKD - Rising sCr - cont milrinone - d/w renal HTN: - bp reasonable - cont bb - JORGE +/- spirono later, as above
[2019-09-06] MEDS: MILRINONE 20MG/100ML IVPB - 20,000 MCG/100 ML ML IVPB SCH (12:18)
--- NOTE | 2019-09-06 12:49 | PN ---
Progress Note (short form) - Note Progress Note: PULMONARY CONSULTATION DICTATED 09/06/19 IMP DYSPNEA/COUGH ACUTE ON CHRONIC SYSTOLIC/DIASTOLIC HF SEVERE LV SYSTOLIC DYSFUNCTION WITH SEVERE GLOBAL HYPOKINESIS ANASARCA ACUTE ON CHRONIC KIDNEY FAILURE PULMONARY HTN DM HLD H/O HEMOPTYSIS ANEMIA SUSPECTED OSAS PLAN IV LASIX DAILY WTS O2 NEEDED F/U CHEST X-RAYS MONITOR LYTES,RENAL FUNCTION CHEST CT MONITOR H+H SLEEP SCREEN DR RUST Problem List - Problems (1) Anasarca associated with disorder of kidney Code(s): N04.9 - NEPHROTIC SYNDROME WITH UNSPECIFIED MORPHOLOGIC CHANGES (2) CKD (chronic kidney disease) Code(s): N18.9 - CHRONIC KIDNEY DISEASE, UNSPECIFIED Qualifiers: Chronic kidney disease stage: unspecified stage Qualified Code(s): N18.9 - Chronic kidney disease, unspecified (3) Cough Code(s): R05 - COUGH (4) Edema Code(s): R60.9 - EDEMA, UNSPECIFIED Qualifiers: Edema type: generalized Qualified Code(s): R60.1 - Generalized edema (5) CHF (congestive heart failure) Code(s): I50.9 - HEART FAILURE, UNSPECIFIED Qualifiers: Heart failure type: unspecified Heart failure chronicity: chronic Qualified Code(s): I50.9 - Heart failure, unspecified (6) Anemia Code(s): D64.9 - ANEMIA, UNSPECIFIED (7) CAD (coronary artery disease) Code(s): I25.10 - ATHSCL HEART DISEASE OF [place] CORONARY ARTERY W/O ANG PCTRS (8) Diabetes Code(s): E11.9 - TYPE 2 DIABETES MELLITUS WITHOUT COMPLICATIONS (9) HLD (hyperlipidemia) Code(s): E78.5 - HYPERLIPIDEMIA, UNSPECIFIED (10) HTN (hypertension) Code(s): I10 - ESSENTIAL (PRIMARY) HYPERTENSION (11) Systolic and diastolic CHF w/reduced LV function, NYHA class 4 Code(s): I50.40 - UNSP COMBINED SYSTOLIC AND DIASTOLIC (CONGESTIVE) HRT FAIL
--- NOTE | 2019-09-06 13:02 | PN ---
Teaching Attending Note Name of Resident: Ariel Sun ATTENDING PHYSICIAN STATEMENT I saw and evaluated the patient. I reviewed the resident's note and discussed the case with the resident. I agree with the resident's findings and plan as documented. SUBJECTIVE: Patient reports SOB with exertion. OBJECTIVE: Vital Signs Period Temp Pulse Resp BP Sys/Garner Pulse Ox Last 24 Hr 97.8 F-99.5 F 61-76 18-19 86-152/47-79 98-99 GENERAL: The patient is awake, alert, and fully oriented, in no acute distress. LUNGS: Breath sounds equal, bibasilar rales, no wheezes, no accessory muscle use. HEART: Regular rate and rhythm, S1, S2 without murmur, rub or gallop. ABDOMEN: Obese, soft, nontender, nondistended, normoactive bowel sounds, no guarding, no rebound, no hepatosplenomegaly, no masses. EXTREMITIES: 2+ pulses, warm, well-perfused, 3+ edema. Laboratory Results - last 24 hr 09/02/19 09/05/19 09/05/19 19:30 17:27 21:59 WBC RBC Hgb Hct MCV MCH MCHC RDW Plt Count MPV Sodium Potassium Chloride Carbon Dioxide Anion Gap BUN Creatinine Est GFR (CKD-EPI)AfAm Est GFR (CKD-EPI)NonAf POC Glucometer 140 155 Random Glucose Calcium Phosphorus Magnesium Total Protein (PEP) 5.6 L Albumin (PEP) 2.3 L Globulin 3.3 Albumin/Globulin Ratio 0.7 Beta Globulins 0.9 MARGA M-Mo Not observed 09/06/19 09/06/19 09/06/19 05:20 05:20 05:55 WBC 5.2 RBC 3.09 L Hgb 8.0 L Hct 24.6 L MCV 79.7 L MCH 25.8 MCHC 32.4 RDW 14.9 Plt Count 235 MPV 8.4 Sodium 133 L Potassium 4.4 Chloride 102 Carbon Dioxide 22 Anion Gap 9 BUN 61.2 H Creatinine 2.9 H Est GFR (CKD-EPI)AfAm 26.42 Est GFR (CKD-EPI)NonAf 22.80 POC Glucometer 109 Random Glucose 106 Calcium 7.0 L Phosphorus 5.3 H Magnesium 1.8 Total Protein (PEP) Albumin (PEP) Globulin Albumin/Globulin Ratio Beta Globulins MARGA M-Mo 09/06/19 11:26 WBC RBC Hgb Hct MCV MCH MCHC RDW Plt Count MPV Sodium Potassium Chloride Carbon Dioxide Anion Gap BUN Creatinine Est GFR (CKD-EPI)AfAm Est GFR (CKD-EPI)NonAf POC Glucometer 132 Random Glucose Calcium Phosphorus Magnesium Total Protein (PEP) Albumin (PEP) Globulin Albumin/Globulin Ratio Beta Globulins MARGA M-Mo Current Medications Generic Name Dose Route Start Last Admin Trade Name Freq PRN Reason Stop Dose Admin Acetaminophen 650 mg 09/03/19 15:18 09/03/19 15:25 Tylenol - PO 650 mg Q6H PRN Administration FEVER Amlodipine Besylate 10 mg 09/01/19 10:00 09/06/19 09:07 Norvasc - PO 10 mg DAILY [facility] Administration Benzocaine/Menthol 1 each 09/04/19 15:59 09/05/19 15:03 Cepacol Lozenge - MM 1 each Q2H PRN Administration SORE THROAT Bisacodyl 10 mg 08/31/19 05:01 Dulcolax Suppository - RC PRN PRN CONSTIPATION Chlorhexidine Gluconate 1 applic 09/05/19 22:00 Hibiclens For Decolonization - TP HS CELE[facility]INO Furosemide 80 mg 09/06/19 14:00 Lasix Injection - IVPUSH BID@0600,1400 [facility] Guaifenesin/Codeine Phosphate 10 ml 09/06/19 01:54 09/06/19 02:21 Robitussin Ac - PO 10 ml Q8H PRN Administration COUGH Heparin Sodium (Porcine) 5,000 unit 08/31/19 14:00 09/06/19 06:10 Heparin - SQ 5,000 unit TID CELE[facility]INO Administration Milrinone Lactate/Dextrose 20,000 mcg in 100 mls @ 6.892 mls/hr 09/05/19 11: 30 09/06/19 12:18 Milrinone 20mg/100ml Ivpb - IVPB 0.25 mcg/kg/min TITR CELE[facility] 6.892 mls/hr Administration 0.25 MCG/KG/MIN Insulin Aspart 1 vial 08/31/19 07:00 09/06/19 11:27 Novolog Vial Sliding Scale - SQ Not Given ACHS [facility] Protocol Magnesium Oxide 400 mg 09/04/19 10:00 09/06/19 09:07 Mag-Ox - PO 400 mg BID CE[facility] Administration Metoprolol Succinate 50 mg 09/02/19 10:00 09/06/19 09:07 Toprol Xl - PO 50 mg BID [facility] Administration Mupirocin 1 applic 09/05/19 22:00 Bactroban Ointment (For Decolonization) - NS 09/10/19 21:59 BID [facility] ASSESSMENT AND PLAN: This is a 59 year old man with a history of HTN, hyperlipidemia, CAD, chronic diastolic heart failure, type 2 DM, stage 3 CKD, BPH with bladder outlet obstruction, 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 1. Acute on chronic systolic and diastolic heart failure - Echo shows borderline dilated LV, mild concentric LVH, severe global LV hypokinesis, LVEF 30%, mild MR, mild to moderate TR, trace AR, RVSP 42mmHg - Lasix IV increased - Continue milrinone 2. Hyperkalemia - Improved 3. Hypomagnesemia - Continue magnesium supplementation 4. Acute kidney injury - Secondary to diuresis - Creatinine increasing - continue to monitor with addition of milrinone 5. Stage 3 CKD 6. Iron deficiency anemia - Stool negative for occult blood - Hgb stable 7. Hematuria, nephrotic range proteinuria - UA shows 1+ blood with 9 RBC, 3+ protein - US shows normal kidneys - PK (+) - complement, anti-ds-DNA Ab pending - SPEP negative - ANCA pending 8. HTN - Continue Norvasc, Toprol XL 9. Hyperlipidemia - On no medication 10. CAD - Continue Toprol XL 11. Type 2 DM - Glipizide held - Continue Novolog sliding scale 12. BPH 13. Obesity
--- NOTE | 2019-09-06 13:25 | PN ---
Progress Note (short form) - Note Progress Note: Renal follow up for CKD/Fluid overload Seen and examined at the bedside awake and alert sob is better but leg edema persists weights unchanged making urine Vital Signs Temperature 98 F 09/06/19 12:00 Pulse Rate 66 09/06/19 12:00 Respiratory Rate 18 09/06/19 12:00 Blood Pressure 126/66 09/06/19 12:00 O2 Sat by Pulse Oximetry (%) 98 09/06/19 09:00 Intake & Output 09/03/19 09/04/19 09/05/19 09/06/19 23:59 23:59 23:59 23:59 Intake Total 1000 390 950 410 Output Total 2550 1650 1750 500 Balance -1550 -1260 -800 -90 Weight 96.434 kg 96.797 kg 91.898 kg 98.067 kg NAD RRR some rales at lung bases soft NT/ND ++ upper and lower extremity edema no cyanosis or clubbing CBC, BMP 09/06/19 05:20 09/06/19 05:20 Current Medications Acetaminophen (Tylenol -) 650 mg PO Q6H PRN PRN Reason: FEVER Last Admin: 09/03/19 15:25 Dose: 650 mg Amlodipine Besylate (Norvasc -) 10 mg PO DAILY [facility] Last Admin: 09/06/19 09:07 Dose: 10 mg Benzocaine/Menthol (Cepacol Lozenge -) 1 each MM Q2H PRN PRN Reason: SORE THROAT Last Admin: 09/05/19 15:03 Dose: 1 each Bisacodyl (Dulcolax Suppository -) 10 mg RC PRN PRN PRN Reason: CONSTIPATION Chlorhexidine Gluconate (Hibiclens For Decolonization -) 1 applic TP HS [facility] Furosemide (Lasix Injection -) 80 mg IVPUSH BID@0600,1400 [facility] Guaifenesin/Codeine Phosphate (Robitussin Ac -) 10 ml PO Q8H PRN PRN Reason: COUGH Last Admin: 09/06/19 02:21 Dose: 10 ml Heparin Sodium (Porcine) (Heparin -) 5,000 unit SQ TID [facility] Last Admin: 09/06/19 06:10 Dose: 5,000 unit Milrinone Lactate/Dextrose (Milrinone 20mg/100ml Ivpb -) 20,000 mcg in 100 mls @ 6.892 mls/hr IVPB TITR [facility] Last Admin: 09/06/19 12:18 Dose: 0.25 mcg/kg/min, 6.892 mls/hr Insulin Aspart (Novolog Vial Sliding Scale -) 1 vial SQ ACHS [facility]; Protocol Last Admin: 09/06/19 11:27 Dose: Not Given Magnesium Oxide (Mag-Ox -) 400 mg PO BID [facility] Last Admin: 09/06/19 09:07 Dose: 400 mg Metoprolol Succinate (Toprol Xl -) 50 mg PO BID [facility] Last Admin: 09/06/19 09:07 Dose: 50 mg Mupirocin (Bactroban Ointment (For Decolonization) -) 1 applic NS BID [facility] Stop: 09/10/19 21:59 59 year old gentleman with history of CKD stage 3, hypertension, DM type 2, BPH, hyperlipidemia who presented from home with shortness of breath, leg and arm swelling and admitted for diastolic HF. 1. Anasarca 2. Diastolic HF 3. CKD stage 3 4. Metabolic acidosis 5. Anemia 6. Proteinuria Fluid overload likely multifactorial from diastolic HF/CKD/Proteinuria UPCR is 11, in nephrotic range, PK is positive complements to be collected today, will follow up. Anti-DS DNA collectd today can consider renal biopsy as an outpatient once volume status improved Lasix increased to 80mg IV BID on Milrinone as per cardiology no signs of uremia, hyperkalmeia or overt acidosis Low K diet Trend renal function and electrolytes daily Thank you Rufino Rudolph DO
--- NOTE | 2019-09-06 13:57 | CONS ---
DATE OF CONSULTATION: 09/06/2019 PULMONARY CONSULTATION REFERRING PHYSICIAN: Dequan Caal MD HISTORY OF PRESENT ILLNESS: Patient is a 59-year-old male, past medical history of diabetes mellitus, hypertension, chronic kidney disease, hyperlipidemia, history of left toe peripheral vascular disease, status post left great toe amputation and partial 2nd toe amputation, tobacco abuse, quit approximately 14 years ago, peripheral neuropathy, severe congestive heart failure, diastolic and systolic, with severe LV dysfunction with an ejection fraction of 30%, admitted to [facility] on August 30 with the complaint of increasing shortness of breath, bilateral upper and lower extremity edema. Patient apparently has been having worsening dyspnea and edema approximately 3 months prior to admission. Apparently he is noncompliant with medications. Of note he was hospitalized in April 2019 secondary to CHF as well as hemoptysis. He underwent a CT scan of the chest at that time which revealed evidence of ground-glass opacities in the right lung, most prominent in the right upper lobe. Patient was admitted with the above progressive shortness of breath and upper and lower extremity edema at this time. On admission he was evaluated by Cardiology and placed on IV Lasix. He was also evaluated by Renal. Patient has been also complaining of a cough which is nonproductive. Denies any chest pains or palpitation. Denies orthopnea. He denies any history of occupational exposure to chemicals or fumes. PAST MEDICAL HISTORY: Again includes chronic kidney disease, diabetes, hypertension, severe congestive heart failure, diastolic and systolic, BPH, hyperlipidemia, history of peripheral vascular disease, anemia. REVIEW OF SYSTEMS: Positive orthopnea. Positive dyspnea on exertion. No chest pain. Positive cough. No fever. No chills. No hemoptysis. No abdominal pain. Positive upper and lower extremity edema. CURRENT MEDICATIONS: Include Tylenol, Mag-Ox, Bactroban, heparin subcutaneous, Robitussin AC, milrinone, Dulcolax, Norvasc, Cepacol, Lasix. PHYSICAL EXAMINATION: General: Patient is an obese male, awake, alert, in no acute distress. Vital Signs: He is afebrile, heart rate is 66, blood pressure is 126/66, respiratory rate is 18, O2 saturation 98% on room air. HEENT: Normocephalic, atraumatic. Neck: Supple. Heart: Regular, S1, S2. Chest: Bilateral crackles 1/3 up. Abdomen: Soft. Bowel sounds positive. Extremities: Bilateral lower and upper extremity edema. LABORATORIES: WBC is 5.2, hemoglobin 8, hematocrit 24.6 with a platelet count of 235,000. Chemistry: BUN is 61, creatinine 2.9. BNP is 48,622. Chest x-ray: Cardiomegaly, decreased congestion bilaterally. IMPRESSION: 1. Dyspnea, cough, likely secondary to [id number] systolic and diastolic heart failure. 2. Severe left ventricular diastolic dysfunction with severe global hypokinesis. 3. Anasarca. 4. [id number] kidney failure. 5. Pulmonary hypertension. 6. Diabetes. 7. Hyperlipidemia. 8. History of hemoptysis. 9. Anemia. 10. Suspected obstructive sleep apnea. PLAN: IV Lasix. Supplemental O2 as needed. Daily weights. Followup chest x- rays. Monitor his electrolytes, his renal function. Followup chest CT. Monitor hemoglobin and hematocrit. Also a sleep screen. GIL RUST M.D. VAZQUEZ/[id number] MTDD
[2019-09-06 17:08] LABS: ATYPICAL pANCA <1:20 titer (Neg:<1:20); C-ANCA <1:20 titer (Neg:<1:20)
[2019-09-06] MEDS: BENZOCAINE/MENTH/CETYLPYRD CL 1 EACH LOZENGE MM PRN (22:34)
[2019-09-07] MEDS ORDERED: PT OWN MED DRAWER 7, Y5N ONE (03:03)
[2019-09-07] MEDS: FUROSEMIDE 40 MG/4 ML INJECTABLE VIAL IVPUSH SCH ×2 (06:46→15:08)
[2019-09-07] MEDS: INSULIN SLIDING SCALE (NOVOLOG) 1 VIAL SQ SCH ×4 (06:46→21:12)
[2019-09-07] MEDS: HEPARIN NA (PORCINE) 5,000 UNITS/ML 1ML VIAL SQ SCH ×3 (06:46→21:05)
[2019-09-07 07:14] LABS: BASO % 0.7 % (0-2.0); EOS % 1.4 % (0-4.5); HEMATOCRIT 26.5 % (35.4-49); HEMOGLOBIN 8.6 GM/dL (11.7-16.9); LYMPH % 24.6 % (8-40); MCH 25.5 pg (25.7-33.7); MCHC 32.5 g/dl (32.0-35.9); MEAN CELL VOLUME 78.4 fl (80-96); MEAN PLT VOLUME 8.1 fl (7.5-11.1); MONO % 11.5 % (3.8-10.2); NEUT % 61.8 % (42.8-82.8); PLATELET COUNT 252 K/MM3 (134-434); RBC 3.38 M/mm3 (4.00-5.60); WHITE BLOOD COUNT 4.2 K/mm3 (4.0-10.0)
[2019-09-07 07:41] LABS: ALBUMIN 2.1 g/dl (3.4-5.0); BILIRUBIN,TOTAL 0.3 mg/dL (0.2-1); BLOOD UREA NITROGEN 68.2 mg/dL (7-18); CALCIUM 7.4 mg/dL (8.5-10.1); CREATININE 3.1 mg/dL (0.55-1.3); MAGNESIUM 2.1 mg/dL (1.8-2.4); PHOSPHOROUS 5.5 mg/dL (2.5-4.9); POTASSIUM 4.6 mmol/L (3.5-5.1); TOT PROT 6.1 g/dl (6.4-8.2)
[2019-09-07] MEDS: MAGNESIUM OXIDE 400 MG TABLET (FP) PO SCH ×2 (09:39→21:05)
[2019-09-07] MEDS: amLODIPine BESYLATE 10 MG TABLET (FP) PO SCH (09:40)
--- NOTE | 2019-09-07 10:43 | PN ---
Progress Note (short form) - Note Progress Note: s: no sob but short distances, no chest pain, palps. subjectively urine output has increased, weight up 1 lb and pt feels more edema in legs, abdomen no cigs Current Medications Acetaminophen (Tylenol -) 650 mg PO Q6H PRN PRN Reason: FEVER Last Admin: 09/03/19 15:25 Dose: 650 mg Amlodipine Besylate (Norvasc -) 10 mg PO DAILY [facility] Last Admin: 09/07/19 09:40 Dose: 10 mg Benzocaine/Menthol (Cepacol Lozenge -) 1 each MM Q2H PRN PRN Reason: SORE THROAT Last Admin: 09/06/19 22:34 Dose: 1 each Bisacodyl (Dulcolax Suppository -) 10 mg RC PRN PRN PRN Reason: CONSTIPATION Furosemide (Lasix Injection -) 100 mg IVPUSH BID@0600,1400 [facility] Guaifenesin/Codeine Phosphate (Robitussin Ac -) 10 ml PO Q8H PRN PRN Reason: COUGH Last Admin: 09/06/19 22:34 Dose: 10 ml Heparin Sodium (Porcine) (Heparin -) 5,000 unit SQ TID [facility] Last Admin: 09/07/19 06:46 Dose: 5,000 unit Milrinone Lactate/Dextrose (Milrinone 20mg/100ml Ivpb -) 20,000 mcg in 100 mls @ 6.892 mls/hr IVPB TITR [facility] Last Admin: 09/06/19 12:18 Dose: 0.25 mcg/kg/min, 6.892 mls/hr Insulin Aspart (Novolog Vial Sliding Scale -) 1 vial SQ ACHS [facility]; Protocol Last Admin: 09/07/19 06:46 Dose: Not Given Magnesium Oxide (Mag-Ox -) 400 mg PO BID [facility] Last Admin: 09/07/19 09:39 Dose: 400 mg Metoprolol Succinate (Toprol Xl -) 50 mg PO BID [facility] Last Admin: 09/07/19 09:40 Dose: 50 mg Vital Signs Period Temp Pulse Resp BP Sys/Garner Pulse Ox Last 24 Hr 98 F-99 F 66-77 18-20 122-134/62-81 Constitutional: Yes: No Distress, Calm Eyes: No: Sclera Icterus HENT: No: Nasal Congestion Cardiovascular: Yes: Regular Rate and Rhythm, JVD (almost to jaw), S1, S2, Other (PMI non diplaced). No: Gallop, Murmur Respiratory: Yes: CTA Bilaterally, Rales (bases). No: Accessory Muscle Use, Wheezes Gastrointestinal: Yes: Normal Bowel Sounds, Soft. No: Tenderness Musculoskeletal: Yes: Other (No kyphosis) Extremities: No: Cold, Cyanosis Edema: Yes (2-3+ pretib) Integumentary: No: Jaundice Neurological: Yes: Alert, Oriented (x3) Psychiatric: No: Agitated Assessment/Plan cath 02/2018 nonobstructive CAD, nl EF Echo 09/15: mild conc LVH; severe, global LV hypo/EF 30%. nl RV. mild-mod TR. RVSP 42. tele: NSR 59M h/o DM, HTN, HLD, s/p L great toe amputation and partial 2nd toe amputation p/w toe ulcer and bilateral lower extremity swelling Acute on chronic systolic HF exacerbation - BNP >32246 - echo here with severe decreased lvef, new since 2018 echo, likely NICM given recent unremarkable cath - lasix 40 iv bid here--held 09/04 given sCreat up to 2.5--bun/creat up further wt down 222 to 202. 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
--- NOTE | 2019-09-07 11:10 | PN ---
Progress Note, Physician History of Present Illness: PULMONARY ALERT,FEELING BETTER,DYSPNEA IMPROVING,+ COUGH. SLEEP SCREEN AHI 68 - Current Medication List Current Medications: Active Medications Acetaminophen (Tylenol -) 650 mg PO Q6H PRN PRN Reason: FEVER Last Admin: 09/03/19 15:25 Dose: 650 mg Amlodipine Besylate (Norvasc -) 10 mg PO DAILY [facility] Last Admin: 09/07/19 09:40 Dose: 10 mg Benzocaine/Menthol (Cepacol Lozenge -) 1 each MM Q2H PRN PRN Reason: SORE THROAT Last Admin: 09/06/19 22:34 Dose: 1 each Bisacodyl (Dulcolax Suppository -) 10 mg RC PRN PRN PRN Reason: CONSTIPATION Furosemide (Lasix Injection -) 100 mg IVPUSH BID@0600,1400 [facility] Guaifenesin/Codeine Phosphate (Robitussin Ac -) 10 ml PO Q8H PRN PRN Reason: COUGH Last Admin: 09/06/19 22:34 Dose: 10 ml Heparin Sodium (Porcine) (Heparin -) 5,000 unit SQ TID [facility] Last Admin: 09/07/19 06:46 Dose: 5,000 unit Milrinone Lactate/Dextrose (Milrinone 20mg/100ml Ivpb -) 20,000 mcg in 100 mls @ 6.892 mls/hr IVPB TITR [facility] Last Admin: 09/06/19 12:18 Dose: 0.25 mcg/kg/min, 6.892 mls/hr Insulin Aspart (Novolog Vial Sliding Scale -) 1 vial SQ ACHS [facility]; Protocol Last Admin: 09/07/19 06:46 Dose: Not Given Magnesium Oxide (Mag-Ox -) 400 mg PO BID [facility] Last Admin: 09/07/19 09:39 Dose: 400 mg Metoprolol Succinate (Toprol Xl -) 50 mg PO BID [facility] Last Admin: 09/07/19 09:40 Dose: 50 mg - Objective Vital Signs: Vital Signs Temperature 99 F 09/07/19 09:37 Pulse Rate 70 09/07/19 09:37 Respiratory Rate 20 09/07/19 09:37 Blood Pressure 134/74 09/07/19 09:37 O2 Sat by Pulse Oximetry (%) 95 09/07/19 09:00 Constitutional: Yes: Well Nourished, Calm Eyes: Yes: WNL HENT: Yes: WNL Neck: Yes: WNL Cardiovascular: Yes: Regular Rate and Rhythm, S1, S2 Respiratory: Yes: Rales (BIBASILAR RALES) Gastrointestinal: Yes: Normal Bowel Sounds, Soft Extremities: Yes: WNL Edema: Yes Labs: CBC, BMP 09/07/19 06:32 09/07/19 06:32 - ....Imaging Chest X-ray: Report Reviewed, Image Reviewed Problem List - Problems (1) Anasarca associated with disorder of kidney Code(s): N04.9 - NEPHROTIC SYNDROME WITH UNSPECIFIED MORPHOLOGIC CHANGES (2) CKD (chronic kidney disease) Code(s): N18.9 - CHRONIC KIDNEY DISEASE, UNSPECIFIED Qualifiers: Chronic kidney disease stage: unspecified stage Qualified Code(s): N18.9 - Chronic kidney disease, unspecified (3) Cough Code(s): R05 - COUGH (4) Edema Code(s): R60.9 - EDEMA, UNSPECIFIED Qualifiers: Edema type: generalized Qualified Code(s): R60.1 - Generalized edema (5) CHF (congestive heart failure) Code(s): I50.9 - HEART FAILURE, UNSPECIFIED Qualifiers: Heart failure type: unspecified Heart failure chronicity: chronic Qualified Code(s): I50.9 - Heart failure, unspecified (6) Anemia Code(s): D64.9 - ANEMIA, UNSPECIFIED (7) CAD (coronary artery disease) Code(s): I25.10 - ATHSCL HEART DISEASE OF [place] CORONARY ARTERY W/O ANG PCTRS (8) Diabetes Code(s): E11.9 - TYPE 2 DIABETES MELLITUS WITHOUT COMPLICATIONS (9) HLD (hyperlipidemia) Code(s): E78.5 - HYPERLIPIDEMIA, UNSPECIFIED (10) HTN (hypertension) Code(s): I10 - ESSENTIAL (PRIMARY) HYPERTENSION (11) Systolic and diastolic CHF w/reduced LV function, NYHA class 4 Code(s): I50.40 - UNSP COMBINED SYSTOLIC AND DIASTOLIC (CONGESTIVE) HRT FAIL Assessment/Plan IMP DYSPNEA/COUGH ACUTE ON CHRONIC SYSTOLIC/DIASTOLIC HF SEVERE LV SYSTOLIC DYSFUNCTION WITH SEVERE GLOBAL HYPOKINESIS ANASARCA ACUTE ON CHRONIC KIDNEY FAILURE PULMONARY HTN DM HLD H/O HEMOPTYSIS ANEMIA SUSPECTED OSAS AHI 68 0N SLEEP SCREEN PLAN CONTINUE IV LASIX DAILY WTS O2 NEEDED F/U CHEST X-RAYS MONITOR LYTES,RENAL FUNCTION CHEST CT MONITOR H+H FULL SLEEP STUDIES OUTPATIENT DR RUST Problem List - Problems (1) Anasarca associated with disorder of kidney Code(s): N04.9 - NEPHROTIC SYNDROME WITH UNSPECIFIED MORPHOLOGIC CHANGES (2) CKD (chronic kidney disease) Code(s): N18.9 - CHRONIC KIDNEY DISEASE, UNSPECIFIED Qualifiers: Chronic kidney disease stage: unspecified stage Qualified Code(s): N18.9 - Chronic kidney disease, unspecified (3) Cough Code(s): R05 - COUGH (4) Edema Code(s): R60.9 - EDEMA, UNSPECIFIED Qualifiers: Edema type: generalized Qualified Code(s): R60.1 - Generalized edema (5) CHF (congestive heart failure) Code(s): I50.9 - HEART FAILURE, UNSPECIFIED Qualifiers: Heart failure type: unspecified Heart failure chronicity: chronic Qualified Code(s): I50.9 - Heart failure, unspecified (6) Anemia Code(s): D64.9 - ANEMIA, UNSPECIFIED (7) CAD (coronary artery disease) Code(s): I25.10 - ATHSCL HEART DISEASE OF [place] CORONARY ARTERY W/O ANG PCTRS (8) Diabetes Code(s): E11.9 - TYPE 2 DIABETES MELLITUS WITHOUT COMPLICATIONS (9) HLD (hyperlipidemia) Code(s): E78.5 - HYPERLIPIDEMIA, UNSPECIFIED (10) HTN (hypertension) Code(s): I10 - ESSENTIAL (PRIMARY) HYPERTENSION (11) Systolic and diastolic CHF w/reduced LV function, NYHA class 4 Code(s): I50.40 - UNSP COMBINED SYSTOLIC AND DIASTOLIC (CONGESTIVE) HRT FAIL
[2019-09-07] MEDS: MILRINONE 20MG/100ML IVPB - 20,000 MCG/100 ML ML IVPB SCH ×2 (11:49→19:07)
--- NOTE | 2019-09-07 12:57 | PN ---
Physical Exam: SUBJECTIVE: Patient seen and examined at bed side , No acute events over night breathing is betetr leg still swollen increase his lasix to 100 BID per nephrology urine out put about one liter OBJECTIVE: Vital Signs Period Temp Pulse Resp BP Sys/Garner Pulse Ox Last 24 Hr 98.1 F-99 F 69-77 20-20 122-134/62-81 95 GENERAL: AAOx3 in NAD HEAD: NC/AT EYES: EOMI, Conjunctiva clear, sclera anicteric ENT: moist mucous membrane NECK: Supple, no JVD LUNGS: bibasilar crackles HEART: RRR, NSR, normal s1, s2, murmur no M/R/G ABDOMEN: Soft, ND, NT, +BS 4 Q, no CVA Tenderness LOWER EXTREMITIES: +2 edema, +2DP pulse, NEUROLOGICAL: No focal deficit. Normal speech. gait not observed. PSYCHIATRIC: Cooperative. Good eye contact. Appropriate mood and affect. SKIN: Warm, dry, Laboratory Results - last 24 hr 09/02/19 09/06/19 09/06/19 05:30 05:20 06:00 WBC RBC Hgb Hct MCV MCH MCHC RDW Plt Count MPV Absolute Neuts (auto) Neutrophils % Lymphocytes % Monocytes % Eosinophils % Basophils % Nucleated RBC % Sodium Potassium Chloride Carbon Dioxide Anion Gap BUN Creatinine Est GFR (CKD-EPI)AfAm Est GFR (CKD-EPI)NonAf POC Glucometer Random Glucose Calcium Phosphorus Magnesium Total Bilirubin AST ALT Alkaline Phosphatase Total Protein Albumin c-ANCA <1:20 Proteinase 3 (PR3) <3.5 p-ANCA <1:20 Atypical p-ANCA <1:20 Myeloperoxidase Ab <9.0 Double Strand DNA Ab 1 Complement C3 112 Complement C4 34 09/06/19 09/06/19 09/07/19 17:24 21:59 06:32 WBC RBC Hgb Hct MCV MCH MCHC RDW Plt Count MPV Absolute Neuts (auto) Neutrophils % Lymphocytes % Monocytes % Eosinophils % Basophils % Nucleated RBC % Sodium 131 L Potassium 4.6 Chloride 102 Carbon Dioxide 21 Anion Gap 8 BUN 68.2 H Creatinine 3.1 H Est GFR (CKD-EPI)AfAm 24.38 Est GFR (CKD-EPI)NonAf 21.03 POC Glucometer 165 174 Random Glucose 113 H Calcium 7.4 L Phosphorus 5.5 H Magnesium 2.1 Total Bilirubin 0.3 AST 21 ALT 17 Alkaline Phosphatase 155 H Total Protein 6.1 L Albumin 2.1 L c-ANCA Proteinase 3 (PR3) p-ANCA Atypical p-ANCA Myeloperoxidase Ab Double Strand DNA Ab Complement C3 Complement C4 09/07/19 09/07/19 09/07/19 06:32 06:44 11:44 WBC 4.2 RBC 3.38 L Hgb 8.6 L Hct 26.5 L MCV 78.4 L MCH 25.5 L MCHC 32.5 RDW 15.0 Plt Count 252 MPV 8.1 Absolute Neuts (auto) 2.6 Neutrophils % 61.8 Lymphocytes % 24.6 D Monocytes % 11.5 H Eosinophils % 1.4 Basophils % 0.7 Nucleated RBC % 0 Sodium Potassium Chloride Carbon Dioxide Anion Gap BUN Creatinine Est GFR (CKD-EPI)AfAm Est GFR (CKD-EPI)NonAf POC Glucometer 106 146 Random Glucose Calcium Phosphorus Magnesium Total Bilirubin AST ALT Alkaline Phosphatase Total Protein Albumin c-ANCA Proteinase 3 (PR3) p-ANCA Atypical p-ANCA Myeloperoxidase Ab Double Strand DNA Ab Complement C3 Complement C4 Active Medications Generic Name Dose Route Start Last Admin Trade Name Freq PRN Reason Stop Dose Admin Acetaminophen 650 mg 09/03/19 15:18 09/03/19 15:25 Tylenol - PO 650 mg Q6H PRN Administration FEVER Amlodipine Besylate 10 mg 09/01/19 10:00 09/07/19 09:40 Norvasc - PO 10 mg DAILY [facility]LE[facility]INO Administration Benzocaine/Menthol 1 each 09/04/19 15:59 09/06/19 22:34 Cepacol Lozenge - MM 1 each Q2H PRN Administration SORE THROAT Bisacodyl 10 mg 08/31/19 05:01 Dulcolax Suppository - RC PRN PRN CONSTIPATION Furosemide 100 mg 09/07/19 10:40 Lasix Injection - IVPUSH BID@0600,1400 CE[facility] Guaifenesin/Codeine Phosphate 10 ml 09/06/19 01:54 09/06/19 22:34 Robitussin Ac - PO 10 ml Q8H PRN Administration COUGH Heparin Sodium (Porcine) 5,000 unit 08/31/19 14:00 09/07/19 06:46 Heparin - SQ 5,000 unit TID [facility]INO Administration Milrinone Lactate/Dextrose 20,000 mcg in 100 mls @ 6.892 mls/hr 09/05/19 11: 30 09/07/19 11:49 Milrinone 20mg/100ml Ivpb - IVPB Not Given TITR CELESTINO 0.25 MCG/KG/MIN Insulin Aspart 1 vial 08/31/19 07:00 09/07/19 11:48 Novolog Vial Sliding Scale - SQ Not Given ACHS CE[facility] Protocol Magnesium Oxide 400 mg 09/04/19 10:00 09/07/19 09:39 Mag-Ox - PO 400 mg BID CELESTINO Administration Metoprolol Succinate 50 mg 09/02/19 10:00 09/07/19 09:40 Toprol Xl - PO 50 mg BID CELESTINO Administration CBC, BMP 09/07/19 06:32 09/07/19 06:32 ASSESSMENT/PLAN: This is a 59 year old man with a history of HTN, hyperlipidemia, CAD, chronic diastolic heart failure, type 2 DM, stage 3 CKD, BPH with bladder outlet obstruction, 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 #Acute on Systolic CHF exacerbation. # Anasacra * increase IV lasix 100 mg BID, might add metolazone per nephrology * Monitor I&O, weight * echo with EF 30%, with severe LV global hypokinesis * cont melrinone per cardiology * FU CMP * FU cardio reccs * will need EF surveillance after 3 mo optimized GDMT--rec ICD at that time if EF not improved per cardiology * #Stage 3 CK * Creatinine 3.1 worsening . * Monitor creatinine with diuresis * PK posiitve and DSDNA negative unlikely lupus * will benifit from renal biopsy as out pt * no signs of uruemia , hyperkalemia or acidosis per nephrology #Anemia * likely from CKD * Previously diagnosed with iron deficiency * Hgb unchanged from 04/2019 * iron studies normal * fobt negative #Hematuria, proteinuria * Renal US results noted * Nephrology consult * urine protein to creatinine normal * Check PK, Hepatitis, HIV, RPR * PK posiitve and DSDNA negative unlikely lupus #HTN * Continue Norvasc, Toprol XL, Lasix #Hyperlipidemia On no medication #CAD * Continue Toprol XL * Continue aspirin if no evidence of GI bleeding #Type 2 DM * Hold glipizide * Fingersticks with Novolog sliding scale #BPH #Obesity with BMI 39.0, educated # KELLEN screening as out pt #FEN * fluid restriction * monitor * sodium , K controlled diet # dispo: monitor in tele Visit type - Emergency Visit Emergency Visit: Yes ED Registration Date: 08/30/19 Care time: The patient presented to the Emergency Department on the above date and was hospitalized for further evaluation of their emergent condition. - New Patient This patient is new to me today: No - Critical Care Critical Care patient: No ATTENDING PHYSICIAN STATEMENT I saw and evaluated the patient. I reviewed the resident's note and discussed the case with the resident. I agree with the resident's findings and plan as documented. SUBJECTIVE: OBJECTIVE: ASSESSMENT AND PLAN:
[2019-09-07] MEDS ORDERED: METOLAZONE 5 MG TABLET PO ONE (13:30)
--- NOTE | 2019-09-07 14:57 | PN ---
Progress Note (short form) - Note Progress Note: Renal follow up for CKD/Fluid overload Seen and examined at the bedside awake and alert no overt sob but leg edema persists denies any cp, abd pain, fever, chills, N/V/D, weakness, LEAL or confusion Vital Signs Temperature 99 F 09/07/19 09:37 Pulse Rate 70 09/07/19 09:37 Respiratory Rate 20 09/07/19 09:37 Blood Pressure 134/74 09/07/19 09:37 O2 Sat by Pulse Oximetry (%) 95 09/07/19 09:00 Intake & Output 09/04/19 09/05/19 09/06/19 09/07/19 23:59 23:59 23:59 23:59 Intake Total 390 950 765.2 322.8 Output Total 1650 1750 1100 1100 Balance -1260 -800 -334.8 -777.2 Weight 96.797 kg 91.898 kg 98.067 kg 98.486 kg NAD RRR neck supple no JVD Dec BS at the lung bases soft NT/ND ++ upper and lower extremity edema no cyanosis or clubbing CBC, BMP 09/07/19 06:32 09/07/19 06:32 Current Medications Acetaminophen (Tylenol -) 650 mg PO Q6H PRN PRN Reason: FEVER Last Admin: 09/03/19 15:25 Dose: 650 mg Amlodipine Besylate (Norvasc -) 10 mg PO DAILY [facility] Last Admin: 09/07/19 09:40 Dose: 10 mg Benzocaine/Menthol (Cepacol Lozenge -) 1 each MM Q2H PRN PRN Reason: SORE THROAT Last Admin: 09/06/19 22:34 Dose: 1 each Bisacodyl (Dulcolax Suppository -) 10 mg RC PRN PRN PRN Reason: CONSTIPATION Furosemide (Lasix Injection -) 100 mg IVPUSH BID@0600,1400 [facility] Guaifenesin/Codeine Phosphate (Robitussin Ac -) 10 ml PO Q8H PRN PRN Reason: COUGH Last Admin: 09/06/19 22:34 Dose: 10 ml Heparin Sodium (Porcine) (Heparin -) 5,000 unit SQ TID [facility] Last Admin: 09/07/19 13:46 Dose: 5,000 unit Milrinone Lactate/Dextrose (Milrinone 20mg/100ml Ivpb -) 20,000 mcg in 100 mls @ 6.892 mls/hr IVPB TITR [facility] Last Admin: 09/07/19 11:49 Dose: Not Given Insulin Aspart (Novolog Vial Sliding Scale -) 1 vial SQ ACHS [facility]; Protocol Last Admin: 09/07/19 11:48 Dose: Not Given Magnesium Oxide (Mag-Ox -) 400 mg PO BID [facility] Last Admin: 09/07/19 09:39 Dose: 400 mg Metoprolol Succinate (Toprol Xl -) 50 mg PO BID [facility] Last Admin: 09/07/19 09:40 Dose: 50 mg 59 year old gentleman with history of CKD stage 3, hypertension, DM type 2, BPH, hyperlipidemia who presented from home with shortness of breath, leg and arm swelling and admitted for diastolic HF. 1. Anasarca 2. Diastolic HF 3. CKD stage 3 4. Metabolic acidosis 5. Anemia 6. Proteinuria Fluid overload likely multifactorial from diastolic HF/CKD/Proteinuria UPCR is 11, in nephrotic range, PK is positive C3/C4, Anti-DS DNA negative so unlikely Lupus can consider renal biopsy as an outpatient once volume status improved Lasix increased to 100mg IV BID, will add metolazone as well as weights remain unchanged on Milrinone as per cardiology no signs of uremia, hyperkalmeia or overt acidosis Low K diet Trend renal function and electrolytes daily Thank you Rufino Rudolph DO
--- NOTE | 2019-09-07 17:20 | PN ---
Teaching Attending Note Name of Resident: Ariel Sun ATTENDING PHYSICIAN STATEMENT I saw and evaluated the patient. I reviewed the resident's note and discussed the case with the resident. I agree with the resident's findings and plan as documented. SUBJECTIVE: Patient says he is feeling better. Cough is less. He still feels SOB with exertion. OBJECTIVE: Vital Signs Period Temp Pulse Resp BP Sys/Garner Pulse Ox Last 24 Hr 97.8 F-99 F 62-77 20-20 122-134/63-81 95 GENERAL: The patient is awake, alert, and fully oriented, in no acute distress. LUNGS: Breath sounds equal, bibasilar rales, no wheezes, no accessory muscle use. HEART: Regular rate and rhythm, S1, S2 without murmur, rub or gallop. ABDOMEN: Obese, soft, nontender, nondistended, normoactive bowel sounds, no guarding, no rebound, no hepatosplenomegaly, no masses. EXTREMITIES: 2+ pulses, warm, well-perfused, 3+ edema. Laboratory Results - last 24 hr 09/02/19 09/06/19 09/06/19 05:30 05:20 06:00 WBC RBC Hgb Hct MCV MCH MCHC RDW Plt Count MPV Absolute Neuts (auto) Neutrophils % Lymphocytes % Monocytes % Eosinophils % Basophils % Nucleated RBC % Sodium Potassium Chloride Carbon Dioxide Anion Gap BUN Creatinine Est GFR (CKD-EPI)AfAm Est GFR (CKD-EPI)NonAf POC Glucometer Random Glucose Calcium Phosphorus Magnesium Total Bilirubin AST ALT Alkaline Phosphatase Total Protein Albumin c-ANCA <1:20 Proteinase 3 (PR3) <3.5 p-ANCA <1:20 Atypical p-ANCA <1:20 Myeloperoxidase Ab <9.0 Double Strand DNA Ab 1 Complement C3 112 Complement C4 34 09/06/19 09/06/19 09/07/19 17:24 21:59 06:32 WBC RBC Hgb Hct MCV MCH MCHC RDW Plt Count MPV Absolute Neuts (auto) Neutrophils % Lymphocytes % Monocytes % Eosinophils % Basophils % Nucleated RBC % Sodium 131 L Potassium 4.6 Chloride 102 Carbon Dioxide 21 Anion Gap 8 BUN 68.2 H Creatinine 3.1 H Est GFR (CKD-EPI)AfAm 24.38 Est GFR (CKD-EPI)NonAf 21.03 POC Glucometer 165 174 Random Glucose 113 H Calcium 7.4 L Phosphorus 5.5 H Magnesium 2.1 Total Bilirubin 0.3 AST 21 ALT 17 Alkaline Phosphatase 155 H Total Protein 6.1 L Albumin 2.1 L c-ANCA Proteinase 3 (PR3) p-ANCA Atypical p-ANCA Myeloperoxidase Ab Double Strand DNA Ab Complement C3 Complement C4 09/07/19 09/07/19 09/07/19 06:32 06:44 11:44 WBC 4.2 RBC 3.38 L Hgb 8.6 L Hct 26.5 L MCV 78.4 L MCH 25.5 L MCHC 32.5 RDW 15.0 Plt Count 252 MPV 8.1 Absolute Neuts (auto) 2.6 Neutrophils % 61.8 Lymphocytes % 24.6 D Monocytes % 11.5 H Eosinophils % 1.4 Basophils % 0.7 Nucleated RBC % 0 Sodium Potassium Chloride Carbon Dioxide Anion Gap BUN Creatinine Est GFR (CKD-EPI)AfAm Est GFR (CKD-EPI)NonAf POC Glucometer 106 146 Random Glucose Calcium Phosphorus Magnesium Total Bilirubin AST ALT Alkaline Phosphatase Total Protein Albumin c-ANCA Proteinase 3 (PR3) p-ANCA Atypical p-ANCA Myeloperoxidase Ab Double Strand DNA Ab Complement C3 Complement C4 Current Medications Generic Name Dose Route Start Last Admin Trade Name Freq PRN Reason Stop Dose Admin Acetaminophen 650 mg 09/03/19 15:18 09/03/19 15:25 Tylenol - PO 650 mg Q6H PRN Administration FEVER Amlodipine Besylate 10 mg 09/01/19 10:00 09/07/19 09:40 Norvasc - PO 10 mg DAILY CELESTINO Administration Benzocaine/Menthol 1 each 09/04/19 15:59 09/06/19 22:34 Cepacol Lozenge - MM 1 each Q2H PRN Administration SORE THROAT Bisacodyl 10 mg 08/31/19 05:01 Dulcolax Suppository - RC PRN PRN CONSTIPATION Furosemide 100 mg 09/07/19 10:40 09/07/19 15:08 Lasix Injection - IVPUSH 100 mg BID@0600,1400 CE[facility] Administration Guaifenesin/Codeine Phosphate 10 ml 09/06/19 01:54 09/06/19 22:34 Robitussin Ac - PO 10 ml Q8H PRN Administration COUGH Heparin Sodium (Porcine) 5,000 unit 08/31/19 14:00 09/07/19 13:46 Heparin - SQ 5,000 unit TID CELESTINO Administration Milrinone Lactate/Dextrose 20,000 mcg in 100 mls @ 6.892 mls/hr 09/05/19 11: 30 09/07/19 11:49 Milrinone 20mg/100ml Ivpb - IVPB Not Given TITR CELESTINO 0.25 MCG/KG/MIN Insulin Aspart 1 vial 08/31/19 07:00 09/07/19 11:48 Novolog Vial Sliding Scale - SQ Not Given ACHS [facility] Protocol Magnesium Oxide 400 mg 09/04/19 10:00 09/07/19 09:39 Mag-Ox - PO 400 mg BID CELE[facility]INO Administration Metoprolol Succinate 50 mg 09/02/19 10:00 09/07/19 09:40 Toprol Xl - PO 50 mg BID CELESTINO Administration ASSESSMENT AND PLAN: This is a 59 year old man with a history of HTN, hyperlipidemia, CAD, chronic diastolic heart failure, type 2 DM, stage 3 CKD, BPH with bladder outlet obstruction, 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 1. Acute on chronic systolic and diastolic heart failure - Echo shows borderline dilated LV, mild concentric LVH, severe global LV hypokinesis, LVEF 30%, mild MR, mild to moderate TR, trace AR, RVSP 42mmHg - Lasix IV increased to 100 mg bid - Continue milrinone 2. Hyperkalemia - Improved 3. Hypomagnesemia - Improved 4. Acute kidney injury - Secondary to diuresis - BUN, creatinine worsening 5. Stage 3 CKD 6. Iron deficiency anemia - Stool negative for occult blood - Hgb stable 7. Hematuria, nephrotic range proteinuria - UA shows 1+ blood with 9 RBC, 3+ protein - US shows normal kidneys - PK (+) - SPEP, ANCA, DS-DNA Ab, complement negative 8. HTN - Continue Norvasc, Toprol XL, Lasix 9. Hyperlipidemia - On no medication 10. CAD - Continue Toprol XL 11. Type 2 DM - Glipizide held - Continue Novolog sliding scale 12. BPH 13. Obesity with BMI 38.5
[2019-09-08] MEDS: FUROSEMIDE 40 MG/4 ML INJECTABLE VIAL IVPUSH SCH ×2 (06:11→13:41)
[2019-09-08] MEDS: HEPARIN NA (PORCINE) 5,000 UNITS/ML 1ML VIAL SQ SCH ×3 (06:11→22:09)
--- NOTE | 2019-09-08 06:16 | PN ---
Physical Exam: SUBJECTIVE: Patient seen and examined at bed side , No acute events over night breathing is better , swelling slightly better leg still swollen +2 +3 increased his lasix to 100 BID per nephrology urine out put about one liter OBJECTIVE: Vital Signs Period Temp Pulse Resp BP Sys/Garner Pulse Ox Last 24 Hr 97.6 F-99 F 62-70 20-20 116-134/62-74 95-96 GENERAL: AAOx3 in NAD HEAD: NC/AT EYES: EOMI, Conjunctiva clear, sclera anicteric ENT: moist mucous membrane NECK: Supple, no JVD LUNGS: bibasilar crackles HEART: RRR, NSR, normal s1, s2, murmur no M/R/G ABDOMEN: Soft, ND, NT, +BS 4 Q, no CVA Tenderness LOWER EXTREMITIES: +2 edema, +2DP pulse, NEUROLOGICAL: No focal deficit. Normal speech. gait not observed. PSYCHIATRIC: Cooperative. Good eye contact. Appropriate mood and affect. SKIN: Warm, dry, Laboratory Results - last 24 hr 09/06/19 09/06/19 09/06/19 05:20 05:20 06:00 WBC RBC Hgb Hct MCV MCH MCHC RDW Plt Count MPV Absolute Neuts (auto) Neutrophils % Lymphocytes % Monocytes % Eosinophils % Basophils % Nucleated RBC % Sodium Potassium Chloride Carbon Dioxide Anion Gap BUN Creatinine Est GFR (CKD-EPI)AfAm Est GFR (CKD-EPI)NonAf POC Glucometer Random Glucose Calcium Phosphorus Magnesium Total Bilirubin AST ALT Alkaline Phosphatase Total Protein Albumin Double Strand DNA Ab 1 Complement C3 112 Complement C4 34 Tot Complement (CH50) > 60 09/07/19 09/07/19 09/07/19 06:32 06:32 06:44 WBC 4.2 RBC 3.38 L Hgb 8.6 L Hct 26.5 L MCV 78.4 L MCH 25.5 L MCHC 32.5 RDW 15.0 Plt Count 252 MPV 8.1 Absolute Neuts (auto) 2.6 Neutrophils % 61.8 Lymphocytes % 24.6 D Monocytes % 11.5 H Eosinophils % 1.4 Basophils % 0.7 Nucleated RBC % 0 Sodium 131 L Potassium 4.6 Chloride 102 Carbon Dioxide 21 Anion Gap 8 BUN 68.2 H Creatinine 3.1 H Est GFR (CKD-EPI)AfAm 24.38 Est GFR (CKD-EPI)NonAf 21.03 POC Glucometer 106 Random Glucose 113 H Calcium 7.4 L Phosphorus 5.5 H Magnesium 2.1 Total Bilirubin 0.3 AST 21 ALT 17 Alkaline Phosphatase 155 H Total Protein 6.1 L Albumin 2.1 L Double Strand DNA Ab Complement C3 Complement C4 Tot Complement (CH50) 09/07/19 09/07/19 09/07/19 11:44 17:20 21:04 WBC RBC Hgb Hct MCV MCH MCHC RDW Plt Count MPV Absolute Neuts (auto) Neutrophils % Lymphocytes % Monocytes % Eosinophils % Basophils % Nucleated RBC % Sodium Potassium Chloride Carbon Dioxide Anion Gap BUN Creatinine Est GFR (CKD-EPI)AfAm Est GFR (CKD-EPI)NonAf POC Glucometer 146 163 153 Random Glucose Calcium Phosphorus Magnesium Total Bilirubin AST ALT Alkaline Phosphatase Total Protein Albumin Double Strand DNA Ab Complement C3 Complement C4 Tot Complement (CH50) Active Medications Generic Name Dose Route Start Last Admin Trade Name Freq PRN Reason Stop Dose Admin Acetaminophen 650 mg 09/03/19 15:18 09/03/19 15:25 Tylenol - PO 650 mg Q6H PRN Administration FEVER Amlodipine Besylate 10 mg 09/01/19 10:00 09/07/19 09:40 Norvasc - PO 10 mg DAILY [facility] Administration Benzocaine/Menthol 1 each 09/04/19 15:59 09/06/19 22:34 Cepacol Lozenge - MM 1 each Q2H PRN Administration SORE THROAT Bisacodyl 10 mg 08/31/19 05:01 Dulcolax Suppository - RC PRN PRN CONSTIPATION Furosemide 100 mg 09/07/19 10:40 09/07/19 15:08 Lasix Injection - IVPUSH 100 mg BID@0600,1400 [facility] Administration Guaifenesin/Codeine Phosphate 10 ml 09/06/19 01:54 09/06/19 22:34 Robitussin Ac - PO 10 ml Q8H PRN Administration COUGH Heparin Sodium (Porcine) 5,000 unit 08/31/19 14:00 09/07/19 21:05 Heparin - SQ 5,000 unit TID [facility]LE[facility]INO Administration Milrinone Lactate/Dextrose 20,000 mcg in 100 mls @ 6.892 mls/hr 09/05/19 11: 30 09/07/19 19:07 Milrinone 20mg/100ml Ivpb - IVPB 0.25 mcg/kg/min TITR CELESTINO 6.892 mls/hr Administration 0.25 MCG/KG/MIN Insulin Aspart 1 vial 08/31/19 07:00 09/07/19 21:12 Novolog Vial Sliding Scale - SQ 2 units ACHS CELESTINO Administration Protocol Magnesium Oxide 400 mg 09/04/19 10:00 09/07/19 21:05 Mag-Ox - PO 400 mg BID CELESTINO Administration Metoprolol Succinate 50 mg 09/02/19 10:00 09/07/19 21:05 Toprol Xl - PO 50 mg BID CELESTINO Administration ASSESSMENT/PLAN: This is a 59 year old man with a history of HTN, hyperlipidemia, CAD, chronic diastolic heart failure, type 2 DM, stage 3 CKD, BPH with bladder outlet obstruction, 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 #Acute on Systolic CHF exacerbation. # Anasacra * increase IV lasix 100 mg BID, might add metolazone per nephrology * Monitor I&O, weight * echo with EF 30%, with severe LV global hypokinesis * cont melrinone per cardiology * FU CMP * FU cardio reccs * will need EF surveillance after 3 mo optimized GDMT--rec ICD at that time if EF not improved per cardiology * #Stage 3 CK * Creatinine 3.1 worsening . * Monitor creatinine with diuresis * PK posiitve and DSDNA negative unlikely lupus * will benifit from renal biopsy as out pt * no signs of uruemia , hyperkalemia or acidosis per nephrology #Anemia * likely from CKD * Previously diagnosed with iron deficiency * Hgb unchanged from 04/2019 * iron studies normal * fobt negative #Hematuria, proteinuria * Renal US results noted * Nephrology consult * urine protein to creatinine normal * Check PK, Hepatitis, HIV, RPR * PK posiitve and DSDNA negative unlikely lupus #HTN * Continue Norvasc, Toprol XL, Lasix #Hyperlipidemia On no medication #CAD * Continue Toprol XL * Continue aspirin if no evidence of GI bleeding #Type 2 DM * Hold glipizide * Fingersticks with Novolog sliding scale #BPH #Obesity with BMI 39.0, educated # KELLEN screening as out pt #FEN * fluid restriction * monitor * sodium , K controlled diet # dispo: monitor in tele Visit type - Emergency Visit Emergency Visit: Yes ED Registration Date: 08/30/19 Care time: The patient presented to the Emergency Department on the above date and was hospitalized for further evaluation of their emergent condition. - New Patient This patient is new to me today: No - Critical Care Critical Care patient: No - Discharge Referral Referred to [facility] No ATTENDING PHYSICIAN STATEMENT I saw and evaluated the patient. I reviewed the resident's note and discussed the case with the resident. I agree with the resident's findings and plan as documented. SUBJECTIVE: OBJECTIVE: ASSESSMENT AND PLAN:
[2019-09-08] MEDS: INSULIN SLIDING SCALE (NOVOLOG) 1 VIAL SQ SCH ×4 (06:18→22:07)
[2019-09-08 06:50] LABS: BASO % 0.5 % (0-2.0); EOS % 2.6 % (0-4.5); HEMATOCRIT 24.7 % (35.4-49); HEMOGLOBIN 8.2 GM/dL (11.7-16.9); LYMPH % 33.6 % (8-40); MCH 25.7 pg (25.7-33.7); MEAN CELL VOLUME 77.8 fl (80-96); MEAN PLT VOLUME 8.8 fl (7.5-11.1); MONO % 11.2 % (3.8-10.2); NEUT % 52.1 % (42.8-82.8); PLATELET COUNT 230 K/MM3 (134-434); RBC 3.17 M/mm3 (4.00-5.60); RDW 14.6 % (11.9-15.9); WHITE BLOOD COUNT 3.4 K/mm3 (4.0-10.0)
[2019-09-08 08:05] LABS: BILIRUBIN,TOTAL 0.3 mg/dL (0.2-1); BLOOD UREA NITROGEN 72.5 mg/dL (7-18); CALCIUM 7.3 mg/dL (8.5-10.1); CREATININE 3.1 mg/dL (0.55-1.3); MAGNESIUM 2.3 mg/dL (1.8-2.4); PHOSPHOROUS 6.1 mg/dL (2.5-4.9); POTASSIUM 4.6 mmol/L (3.5-5.1); TOT PROT 5.8 g/dl (6.4-8.2)
[2019-09-08] MEDS: MAGNESIUM OXIDE 400 MG TABLET (FP) PO SCH ×2 (10:08→22:08)
[2019-09-08] MEDS: amLODIPine BESYLATE 10 MG TABLET (FP) PO SCH (10:08)
--- NOTE | 2019-09-08 10:33 | PN ---
Progress Note (short form) - Note Progress Note: s: no sob but short distances, no chest pain, palps. still with le edema, a little better today no cigs Current Medications Generic Name Dose Route Start Last Admin Trade Name Freq PRN Reason Stop Dose Admin Acetaminophen 650 mg 09/03/19 15:18 09/03/19 15:25 Tylenol - PO 650 mg Q6H PRN Administration FEVER Amlodipine Besylate 10 mg 09/01/19 10:00 09/08/19 10:08 Norvasc - PO 10 mg DAILY [facility] Administration Benzocaine/Menthol 1 each 09/04/19 15:59 09/06/19 22:34 Cepacol Lozenge - MM 1 each Q2H PRN Administration SORE THROAT Bisacodyl 10 mg 08/31/19 05:01 Dulcolax Suppository - RC PRN PRN CONSTIPATION Furosemide 100 mg 09/07/19 10:40 09/08/19 06:11 Lasix Injection - IVPUSH 100 mg BID@0600,1400 [facility] Administration Guaifenesin/Codeine Phosphate 10 ml 09/06/19 01:54 09/06/19 22:34 Robitussin Ac - PO 10 ml Q8H PRN Administration COUGH Heparin Sodium (Porcine) 5,000 unit 08/31/19 14:00 09/08/19 06:11 Heparin - SQ 5,000 unit TID [facility] Administration Milrinone Lactate/Dextrose 20,000 mcg in 100 mls @ 6.892 mls/hr 09/05/19 11: 30 09/07/19 19:07 Milrinone 20mg/100ml Ivpb - IVPB 0.25 mcg/kg/min TITR [facility] 6.892 mls/hr Administration 0.25 MCG/KG/MIN Insulin Aspart 1 vial 08/31/19 07:00 09/08/19 06:18 Novolog Vial Sliding Scale - SQ Not Given ACHS [facility] Protocol Magnesium Oxide 400 mg 09/04/19 10:00 09/08/19 10:08 Mag-Ox - PO 400 mg BID [facility] Administration Metolazone 5 mg 09/08/19 13:30 Zaroxolyn - PO 09/08/19 13:31 ONCE ONE Metoprolol Succinate 50 mg 09/02/19 10:00 09/08/19 10:08 Toprol Xl - PO 50 mg BID [facility] Administration Vital Signs Temp 97.9 F 09/08/19 10:29 Pulse 66 09/08/19 10:29 Resp 18 09/08/19 10:29 BP 126/68 09/08/19 10:29 Pulse Ox 98 09/08/19 09:00 Intake & Output 09/07/19 09/07/19 09/08/19 11:59 23:59 11:59 Intake Total 322.8 130.0 Output Total 8774 181 3737 Balance -777.2 -270.0 -1075 Weight 217 lb 2 oz 214 lb 12.8 oz Intake: IV 82.8 130.0 LH #22 09/03/19 MILRINONE 20MG/100ML IVPB 82.8 110.0 - 20,000 mcg In 100 ml @ 0.25 MCG/KG/MIN 6.892 mls/hr IVPB TITR [facility] Rx#: [id number] Oral 240 Output: Urine 4860 935 0816 Void 4516 675 0502 Other: Voiding Method Toilet Toilet Urinal Bowel Movement No Weight Measurement Method Standing Scale Standing Scale Constitutional: Yes: No Distress, Calm Eyes: No: Sclera Icterus HENT: No: Nasal Congestion Cardiovascular: Yes: Regular Rate and Rhythm, JVD (almost to jaw), S1, S2, Other (PMI non diplaced). No: Gallop, Murmur Respiratory: Yes: CTA Bilaterally, Rales (bases). No: Accessory Muscle Use, Wheezes Gastrointestinal: Yes: Normal Bowel Sounds, Soft. No: Tenderness Musculoskeletal: Yes: Other (No kyphosis) Extremities: No: Cold, Cyanosis Edema: Yes (2+ pretib) Integumentary: No: Jaundice Neurological: Yes: Alert, Oriented (x3) Psychiatric: No: Agitated CBC, BMP 09/08/19 05:08 09/08/19 05:08 Assessment/Plan cath 02/2018 nonobstructive CAD, nl EF Echo 09/15: mild conc LVH; severe, global LV hypo/EF 30%. nl RV. mild-mod TR. RVSP 42. 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 - 09/05 milrinone started, no increase in UOP and Cr rising ->2.9, wt up 202 -> 216 lbs ?reliable, 09/07 wt up 216->217 lbs with more edema - continue milrinone - increased lasix to 100 mg IV BID 09/07, today wt down and cr stable, cont same - monitor lytes, replete K/Mag to usual strict targets - cont toprol (ok with milrinone) - consider outpt sleep study - defer RAAS blockers until renal fxn stabilizes s/p diuresis - will need EF surveillance after 3 mo optimized GDMT--rec ICD at that time if EF not improved JASWINDER/CKD - Rising sCr - cont milrinone - d/w renal HTN: - bp reasonable - cont bb - JORGE +/- spirono later, as above
--- NOTE | 2019-09-08 11:05 | PN ---
Progress Note, Physician History of Present Illness: PULMONARY ALERT,FEELING BETTER,LESS DYSPNEIC,LESS COUGH - Current Medication List Current Medications: Active Medications Acetaminophen (Tylenol -) 650 mg PO Q6H PRN PRN Reason: FEVER Last Admin: 09/03/19 15:25 Dose: 650 mg Amlodipine Besylate (Norvasc -) 10 mg PO DAILY [facility] Last Admin: 09/08/19 10:08 Dose: 10 mg Benzocaine/Menthol (Cepacol Lozenge -) 1 each MM Q2H PRN PRN Reason: SORE THROAT Last Admin: 09/06/19 22:34 Dose: 1 each Bisacodyl (Dulcolax Suppository -) 10 mg RC PRN PRN PRN Reason: CONSTIPATION Furosemide (Lasix Injection -) 100 mg IVPUSH BID@0600,1400 [facility] Last Admin: 09/08/19 06:11 Dose: 100 mg Guaifenesin/Codeine Phosphate (Robitussin Ac -) 10 ml PO Q8H PRN PRN Reason: COUGH Last Admin: 09/06/19 22:34 Dose: 10 ml Heparin Sodium (Porcine) (Heparin -) 5,000 unit SQ TID [facility] Last Admin: 09/08/19 06:11 Dose: 5,000 unit Milrinone Lactate/Dextrose (Milrinone 20mg/100ml Ivpb -) 20,000 mcg in 100 mls @ 6.892 mls/hr IVPB TITR [facility] Last Admin: 09/07/19 19:07 Dose: 0.25 mcg/kg/min, 6.892 mls/hr Insulin Aspart (Novolog Vial Sliding Scale -) 1 vial SQ ACHS [facility]; Protocol Last Admin: 09/08/19 10:50 Dose: Not Given Magnesium Oxide (Mag-Ox -) 400 mg PO BID [facility] Last Admin: 09/08/19 10:08 Dose: 400 mg Metolazone (Zaroxolyn -) 5 mg PO ONCE ONE Stop: 09/08/19 13:31 Metoprolol Succinate (Toprol Xl -) 50 mg PO BID [facility] Last Admin: 09/08/19 10:08 Dose: 50 mg - Objective Vital Signs: Vital Signs Temperature 97.9 F 09/08/19 10:29 Pulse Rate 66 09/08/19 10:29 Respiratory Rate 18 09/08/19 10:29 Blood Pressure 126/68 09/08/19 10:29 O2 Sat by Pulse Oximetry (%) 98 09/08/19 09:00 Constitutional: Yes: Well Nourished, Calm Eyes: Yes: WNL HENT: Yes: WNL Neck: Yes: WNL Cardiovascular: Yes: Regular Rate and Rhythm, S1, S2 Respiratory: Yes: Rales (BIBASAILAR RALES) Gastrointestinal: Yes: Normal Bowel Sounds, Soft Extremities: Yes: WNL Edema: Yes Labs: CBC, BMP 09/08/19 05:08 09/08/19 05:08 Problem List - Problems (1) Anasarca associated with disorder of kidney Code(s): N04.9 - NEPHROTIC SYNDROME WITH UNSPECIFIED MORPHOLOGIC CHANGES (2) CKD (chronic kidney disease) Code(s): N18.9 - CHRONIC KIDNEY DISEASE, UNSPECIFIED Qualifiers: Chronic kidney disease stage: unspecified stage Qualified Code(s): N18.9 - Chronic kidney disease, unspecified (3) Cough Code(s): R05 - COUGH (4) Edema Code(s): R60.9 - EDEMA, UNSPECIFIED Qualifiers: Edema type: generalized Qualified Code(s): R60.1 - Generalized edema (5) CHF (congestive heart failure) Code(s): I50.9 - HEART FAILURE, UNSPECIFIED Qualifiers: Heart failure type: unspecified Heart failure chronicity: chronic Qualified Code(s): I50.9 - Heart failure, unspecified (6) Anemia Code(s): D64.9 - ANEMIA, UNSPECIFIED (7) CAD (coronary artery disease) Code(s): I25.10 - ATHSCL HEART DISEASE OF [place] CORONARY ARTERY W/O ANG PCTRS (8) Diabetes Code(s): E11.9 - TYPE 2 DIABETES MELLITUS WITHOUT COMPLICATIONS (9) HLD (hyperlipidemia) Code(s): E78.5 - HYPERLIPIDEMIA, UNSPECIFIED (10) HTN (hypertension) Code(s): I10 - ESSENTIAL (PRIMARY) HYPERTENSION (11) Systolic and diastolic CHF w/reduced LV function, NYHA class 4 Code(s): I50.40 - UNSP COMBINED SYSTOLIC AND DIASTOLIC (CONGESTIVE) HRT FAIL Assessment/Plan IMP DYSPNEA/COUGH ACUTE ON CHRONIC SYSTOLIC/DIASTOLIC HF SEVERE LV SYSTOLIC DYSFUNCTION WITH SEVERE GLOBAL HYPOKINESIS ANASARCA ACUTE ON CHRONIC KIDNEY FAILURE PULMONARY HTN DM HLD H/O HEMOPTYSIS ANEMIA SUSPECTED OSAS AHI 68 0N SLEEP SCREEN PLAN CONTINUE IV LASIX DAILY WTS O2 NEEDED F/U CHEST X-RAYS MONITOR LYTES,RENAL FUNCTION CHEST CT MONITOR H+H FULL SLEEP STUDIES OUTPATIENT DR RUST Problem List - Problems (1) Anasarca associated with disorder of kidney Code(s): N04.9 - NEPHROTIC SYNDROME WITH UNSPECIFIED MORPHOLOGIC CHANGES (2) CKD (chronic kidney disease) Code(s): N18.9 - CHRONIC KIDNEY DISEASE, UNSPECIFIED Qualifiers: Chronic kidney disease stage: unspecified stage Qualified Code(s): N18.9 - Chronic kidney disease, unspecified (3) Cough Code(s): R05 - COUGH (4) Edema Code(s): R60.9 - EDEMA, UNSPECIFIED Qualifiers: Edema type: generalized Qualified Code(s): R60.1 - Generalized edema (5) CHF (congestive heart failure) Code(s): I50.9 - HEART FAILURE, UNSPECIFIED Qualifiers: Heart failure type: unspecified Heart failure chronicity: chronic Qualified Code(s): I50.9 - Heart failure, unspecified (6) Anemia Code(s): D64.9 - ANEMIA, UNSPECIFIED (7) CAD (coronary artery disease) Code(s): I25.10 - ATHSCL HEART DISEASE OF [place] CORONARY ARTERY W/O ANG PCTRS (8) Diabetes Code(s): E11.9 - TYPE 2 DIABETES MELLITUS WITHOUT COMPLICATIONS (9) HLD (hyperlipidemia) Code(s): E78.5 - HYPERLIPIDEMIA, UNSPECIFIED (10) HTN (hypertension) Code(s): I10 - ESSENTIAL (PRIMARY) HYPERTENSION (11) Systolic and diastolic CHF w/reduced LV function, NYHA class 4 Code(s): I50.40 - UNSP COMBINED SYSTOLIC AND DIASTOLIC (CONGESTIVE) HRT FAIL
[2019-09-08] MEDS ORDERED: METOLAZONE 5 MG TABLET PO ONE (13:30)
[2019-09-08] MEDS: MILRINONE 20MG/100ML IVPB - 20,000 MCG/100 ML ML IVPB SCH (13:35)
--- NOTE | 2019-09-08 15:05 | PN ---
Teaching Attending Note Name of Resident: Ariel Sun ATTENDING PHYSICIAN STATEMENT I saw and evaluated the patient. I reviewed the resident's note and discussed the case with the resident. I agree with the resident's findings and plan as documented. SUBJECTIVE: Patient seen and examined bedside. Endorses breathing has improved, still with LE and abdominal edema. VS otherwise stable. Objective: GENERAL: AAOx3 in NAD, Speaks Amharic, lying in bed HEAD: NC/AT EYES: EOMI, Conjunctiva clear, sclera anicteric ENT: moist mucous membrane NECK: Supple, no JVD LUNGS: good air entry b/l, faint bibasilar crackles HEART: RRR, NSR, normal s1, s2, murmur no M/R/G ABDOMEN: Soft, ND, NT, +BS 4 Q, no CVA Tenderness, pitting edema on anterior abdominal wall LOWER EXTREMITIES: 4+ pitting edema extending beyond the thighs to the abdomen NEUROLOGICAL: No focal deficit. Normal speech. gait not observed. PSYCHIATRIC: Cooperative. Good eye contact. Appropriate mood and affect. SKIN: Warm, dry Vital Signs - 24 hr 09/07/19 09/07/19 09/07/19 17:55 21:00 22:00 Temperature 98.9 F 98.8 F 98.2 F Pulse Rate 69 68 68 Respiratory 20 20 20 Rate Blood Pressure 123/65 128/62 128/62 O2 Sat by Pulse 96 Oximetry (%) 09/08/19 09/08/19 09/08/19 02:00 06:00 09:00 Temperature 97.6 F 98.6 F Pulse Rate 66 67 Respiratory 20 20 Rate Blood Pressure 116/68 142/73 O2 Sat by Pulse 98 Oximetry (%) 09/08/19 10:29 Temperature 97.9 F Pulse Rate 66 Respiratory 18 Rate Blood Pressure 126/68 O2 Sat by Pulse Oximetry (%) Microbiology 09/01/19 22:00 Urine - Urine Clean Catch Urine Culture - Final Group D Strep Or Entero Coccus Laboratory Results - last 24 hr 09/06/19 09/07/19 09/07/19 05:20 17:20 21:04 WBC RBC Hgb Hct MCV MCH MCHC RDW Plt Count MPV Absolute Neuts (auto) Neutrophils % Lymphocytes % Monocytes % Eosinophils % Basophils % Nucleated RBC % Sodium Potassium Chloride Carbon Dioxide Anion Gap BUN Creatinine Est GFR (CKD-EPI)AfAm Est GFR (CKD-EPI)NonAf POC Glucometer 163 153 Random Glucose Calcium Phosphorus Magnesium Total Bilirubin AST ALT Alkaline Phosphatase Total Protein Albumin Tot Complement (CH50) > 60 09/08/19 09/08/19 09/08/19 05:08 05:08 06:16 WBC 3.4 L RBC 3.17 L Hgb 8.2 L Hct 24.7 L MCV 77.8 L MCH 25.7 MCHC 33.0 RDW 14.6 Plt Count 230 MPV 8.8 Absolute Neuts (auto) 1.8 Neutrophils % 52.1 Lymphocytes % 33.6 D Monocytes % 11.2 H Eosinophils % 2.6 D Basophils % 0.5 Nucleated RBC % 0 Sodium 133 L Potassium 4.6 Chloride 101 Carbon Dioxide 22 Anion Gap 10 BUN 72.5 H Creatinine 3.1 H Est GFR (CKD-EPI)AfAm 24.38 Est GFR (CKD-EPI)NonAf 21.03 POC Glucometer 107 Random Glucose 102 Calcium 7.3 L Phosphorus 6.1 H Magnesium 2.3 Total Bilirubin 0.3 AST 19 ALT 15 Alkaline Phosphatase 141 H Total Protein 5.8 L Albumin 2.0 L Tot Complement (CH50) 09/08/19 10:47 WBC RBC Hgb Hct MCV MCH MCHC RDW Plt Count MPV Absolute Neuts (auto) Neutrophils % Lymphocytes % Monocytes % Eosinophils % Basophils % Nucleated RBC % Sodium Potassium Chloride Carbon Dioxide Anion Gap BUN Creatinine Est GFR (CKD-EPI)AfAm Est GFR (CKD-EPI)NonAf POC Glucometer 145 Random Glucose Calcium Phosphorus Magnesium Total Bilirubin AST ALT Alkaline Phosphatase Total Protein Albumin Tot Complement (CH50) Home Medications Medication Instructions Recorded Amlodipine Besylate [Norvasc -] 10 mg PO DAILY tablet 02/21/19 Aspirin [ASA -] 81 mg PO DAILY tab.chew 02/21/19 Docusate Sodium [Colace -] 100 mg PO TID capsule 02/21/19 Furosemide [Lasix -] 40 mg PO DAILY tablet 02/21/19 Glipizide [Glipizide ER] 10 mg PO DAILY #60 tab.er.24 02/21/19 Metoprolol Succinate [Toprol XL -] 25 mg PO BID tab.sr.24h 02/21/19 Acetaminophen [Tylenol .Regular 650 mg PO Q6H PRN tablet 05/21/19 Strength -] Bisacodyl Suppository [Dulcolax 10 mg ID PRN PRN supp.rect 05/21/19 Suppository -] Furosemide [Lasix -] 40 mg PO BID@0600,1400 tablet 05/21/19 Polyethylene Glycol 3350 [Miralax 17 gm PO BID bottle 05/21/19 119 gm Btl -] Current Medications Generic Name Dose Route Start Last Admin Trade Name Freq PRN Reason Stop Dose Admin Acetaminophen 650 mg 09/03/19 15:18 09/03/19 15:25 Tylenol - PO 650 mg Q6H PRN Administration FEVER Amlodipine Besylate 10 mg 09/01/19 10:00 09/08/19 10:08 Norvasc - PO 10 mg DAILY [facility] Administration Benzocaine/Menthol 1 each 09/04/19 15:59 09/06/19 22:34 Cepacol Lozenge - MM 1 each Q2H PRN Administration SORE THROAT Bisacodyl 10 mg 08/31/19 05:01 Dulcolax Suppository - RC PRN PRN CONSTIPATION Furosemide 100 mg 09/07/19 10:40 09/08/19 13:41 Lasix Injection - IVPUSH 100 mg BID@0600,1400 [facility] Administration Guaifenesin/Codeine Phosphate 10 ml 09/06/19 01:54 09/06/19 22:34 Robitussin Ac - PO 10 ml Q8H PRN Administration COUGH Heparin Sodium (Porcine) 5,000 unit 08/31/19 14:00 09/08/19 13:41 Heparin - SQ 5,000 unit TID [facility] Administration Milrinone Lactate/Dextrose 20,000 mcg in 100 mls @ 6.892 mls/hr 09/05/19 11: 30 09/08/19 13:35 Milrinone 20mg/100ml Ivpb - IVPB 0.25 mcg/kg/min TITR [facility] 6.892 mls/hr Administration 0.25 MCG/KG/MIN Insulin Aspart 1 vial 08/31/19 07:00 09/08/19 10:50 Novolog Vial Sliding Scale - SQ Not Given ACHS [facility] Protocol Magnesium Oxide 400 mg 09/04/19 10:00 09/08/19 10:08 Mag-Ox - PO 400 mg BID [facility] Administration Metoprolol Succinate 50 mg 09/02/19 10:00 09/08/19 10:08 Toprol Xl - PO 50 mg BID [facility] Administration 59 M h/o HTN, hyperlipidemia, CAD, HFrEF with acute exacerbation, type 2 DM, stage 3 CKD, BPH with bladder outlet obstruction, 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 Acute on chronic systolic HF with diffuse anasarca IV lasix 100 mg BID, might add metolazone per nephrology Monitor I&O, weight checks daily, fluid restriction <1L/daily echo with EF 30%, with severe LV global hypokinesis cont melrinone per cardiology will need EF surveillance after 3 mo optimized GDMT--rec ICD at that time if EF not improved per cardiology Cardiology consult: Dr Barrios CKD 3B Creatinine 3.1 worsening . Monitor creatinine with diuresis PK posiitve and DSDNA negative unlikely lupus will benifit from renal biopsy as out pt no signs of uruemia , hyperkalemia or acidosis per nephrology Chronic anemia likely ACD Previously diagnosed with iron deficiency Hgb unchanged from 04/2019 iron studies normal fobt negative Hematuria Renal US results noted Nephrology consult urine protein to creatinine normal Check PK, Hepatitis, HIV, RPR PK posiitve and DSDNA negative unlikely lupus BPH monitor urine output, if decreased get Bladder US to assess post-void residual HTN Continue Norvasc, Toprol XL, Lasix HLD restart statin CAD Continue Toprol XL Continue aspirin if no evidence of GI bleeding T2DM ISS, basal insulin PRN Cont. tele monitoring Heparin SC DVT ppx
--- NOTE | 2019-09-08 16:04 | PN ---
Progress Note (short form) - Note Progress Note: Renal follow up for CKD/Fluid overload Seen and examined at the bedside awake and alert no overt sob but leg edema persists denies any cp, abd pain, fever, chills, N/V/D, weakness, LEAL or confusion no overnight events making urine Vital Signs Temperature 97.5 F L 09/08/19 14:00 Pulse Rate 63 09/08/19 14:00 Respiratory Rate 18 09/08/19 10:29 Blood Pressure 134/73 09/08/19 14:00 O2 Sat by Pulse Oximetry (%) 98 09/08/19 09:00 Intake & Output 09/05/19 09/06/19 09/07/19 09/08/19 23:59 23:59 23:59 23:59 Intake Total 950 765.2 452.8 440 Output Total 1750 1100 1500 2675 Balance -800 -334.8 -1047.2 -2235 Weight 91.898 kg 98.067 kg 98.486 kg 97.432 kg NAD RRR neck supple no JVD Dec BS at the lung bases soft NT/ND ++ upper and lower extremity edema no cyanosis or clubbing CBC, BMP 09/08/19 05:08 09/08/19 05:08 Current Medications Acetaminophen (Tylenol -) 650 mg PO Q6H PRN PRN Reason: FEVER Last Admin: 09/03/19 15:25 Dose: 650 mg Amlodipine Besylate (Norvasc -) 10 mg PO DAILY [facility] Last Admin: 09/08/19 10:08 Dose: 10 mg Benzocaine/Menthol (Cepacol Lozenge -) 1 each MM Q2H PRN PRN Reason: SORE THROAT Last Admin: 09/06/19 22:34 Dose: 1 each Bisacodyl (Dulcolax Suppository -) 10 mg RC PRN PRN PRN Reason: CONSTIPATION Furosemide (Lasix Injection -) 100 mg IVPUSH BID@0600,1400 [facility] Last Admin: 09/08/19 13:41 Dose: 100 mg Guaifenesin/Codeine Phosphate (Robitussin Ac -) 10 ml PO Q8H PRN PRN Reason: COUGH Last Admin: 09/06/19 22:34 Dose: 10 ml Heparin Sodium (Porcine) (Heparin -) 5,000 unit SQ TID [facility] Last Admin: 09/08/19 13:41 Dose: 5,000 unit Milrinone Lactate/Dextrose (Milrinone 20mg/100ml Ivpb -) 20,000 mcg in 100 mls @ 6.892 mls/hr IVPB TITR [facility] Last Admin: 09/08/19 13:35 Dose: 0.25 mcg/kg/min, 6.892 mls/hr Insulin Aspart (Novolog Vial Sliding Scale -) 1 vial SQ ACHS [facility]; Protocol Last Admin: 09/08/19 10:50 Dose: Not Given Magnesium Oxide (Mag-Ox -) 400 mg PO BID [facility] Last Admin: 09/08/19 10:08 Dose: 400 mg Metoprolol Succinate (Toprol Xl -) 50 mg PO BID [facility] Last Admin: 09/08/19 10:08 Dose: 50 mg 59 year old gentleman with history of CKD stage 3, hypertension, DM type 2, BPH, hyperlipidemia who presented from home with shortness of breath, leg and arm swelling and admitted for diastolic HF. 1. Anasarca 2. Diastolic HF 3. CKD stage 3 4. Metabolic acidosis 5. Anemia 6. Proteinuria Renal function worse then baseline but stable in setting of aggressive diuresis Fluid overload likely multifactorial from diastolic HF/CKD/Proteinuria UPCR is 11, in nephrotic range, PK is positive C3/C4, Anti-DS DNA negative so unlikely Lupus can consider renal biopsy as an outpatient once volume status improved Continue Lasix and Metolazone continue milrinone as per cardiolgoy trend weights no signs of uremia, hyperkalmeia or overt acidosis Low K diet Trend renal function and electrolytes daily Thank you Rufino Rudolph DO
[2019-09-08] MEDS ORDERED: INSULIN (NOVOLOG) ASPART 100 UNITS/ML 10ML VIAL ONE (21:25)
--- NOTE | 2019-09-09 06:29 | PN ---
Physical Exam: SUBJECTIVE: Patient seen and examined at bed side , No acute events over night breathing is better , swelling slightly better leg still swollen +2 +3 increased his lasix to 100 BID per nephrology urine out put about one 750 cc OBJECTIVE: Vital Signs Period Temp Pulse Resp BP Sys/Garner Pulse Ox Last 24 Hr 97.5 F-97.9 F 63-66 15-19 126-141/65-73 98 GENERAL: AAOx3 in NAD HEAD: NC/AT EYES: EOMI, Conjunctiva clear, sclera anicteric ENT: moist mucous membrane NECK: Supple, no JVD LUNGS: bibasilar crackles HEART: RRR, NSR, normal s1, s2, murmur no M/R/G ABDOMEN: Soft, ND, NT, +BS 4 Q, no CVA Tenderness LOWER EXTREMITIES: +2 edema, +2DP pulse, NEUROLOGICAL: No focal deficit. Normal speech. gait not observed. PSYCHIATRIC: Cooperative. Good eye contact. Appropriate mood and affect. SKIN: Warm, dry, Laboratory Results - last 24 hr 09/08/19 09/08/19 09/08/19 05:08 05:08 10:47 WBC 3.4 L RBC 3.17 L Hgb 8.2 L Hct 24.7 L MCV 77.8 L MCH 25.7 MCHC 33.0 RDW 14.6 Plt Count 230 MPV 8.8 Absolute Neuts (auto) 1.8 Neutrophils % 52.1 Lymphocytes % 33.6 D Monocytes % 11.2 H Eosinophils % 2.6 D Basophils % 0.5 Nucleated RBC % 0 Sodium 133 L Potassium 4.6 Chloride 101 Carbon Dioxide 22 Anion Gap 10 BUN 72.5 H Creatinine 3.1 H Est GFR (CKD-EPI)AfAm 24.38 Est GFR (CKD-EPI)NonAf 21.03 POC Glucometer 145 Random Glucose 102 Calcium 7.3 L Phosphorus 6.1 H Magnesium 2.3 Total Bilirubin 0.3 AST 19 ALT 15 Alkaline Phosphatase 141 H Total Protein 5.8 L Albumin 2.0 L 09/08/19 09/08/19 16:17 22:04 WBC RBC Hgb Hct MCV MCH MCHC RDW Plt Count MPV Absolute Neuts (auto) Neutrophils % Lymphocytes % Monocytes % Eosinophils % Basophils % Nucleated RBC % Sodium Potassium Chloride Carbon Dioxide Anion Gap BUN Creatinine Est GFR (CKD-EPI)AfAm Est GFR (CKD-EPI)NonAf POC Glucometer 179 198 Random Glucose Calcium Phosphorus Magnesium Total Bilirubin AST ALT Alkaline Phosphatase Total Protein Albumin Active Medications Generic Name Dose Route Start Last Admin Trade Name Franq PRN Reason Stop Dose Admin Acetaminophen 650 mg 09/03/19 15:18 09/03/19 15:25 Tylenol - PO 650 mg Q6H PRN Administration FEVER Amlodipine Besylate 10 mg 09/01/19 10:00 09/08/19 10:08 Norvasc - PO 10 mg DAILY [facility] Administration Benzocaine/Menthol 1 each 09/04/19 15:59 09/06/19 22:34 Cepacol Lozenge - MM 1 each Q2H PRN Administration SORE THROAT Bisacodyl 10 mg 08/31/19 05:01 Dulcolax Suppository - RC PRN PRN CONSTIPATION Furosemide 100 mg 09/07/19 10:40 09/08/19 13:41 Lasix Injection - IVPUSH 100 mg BID@0600,1400 [facility] Administration Guaifenesin/Codeine Phosphate 10 ml 09/06/19 01:54 09/06/19 22:34 Robitussin Ac - PO 10 ml Q8H PRN Administration COUGH Heparin Sodium (Porcine) 5,000 unit 08/31/19 14:00 09/08/19 22:09 Heparin - SQ 5,000 unit TID [facility] Administration Milrinone Lactate/Dextrose 20,000 mcg in 100 mls @ 6.892 mls/hr 09/05/19 11: 30 09/08/19 13:35 Milrinone 20mg/100ml Ivpb - IVPB 0.25 mcg/kg/min TITR [facility] 6.892 mls/hr Administration 0.25 MCG/KG/MIN Insulin Aspart 1 vial 08/31/19 07:00 09/08/19 22:07 Novolog Vial Sliding Scale - SQ 2 units ACHS [facility] Administration Protocol Magnesium Oxide 400 mg 09/04/19 10:00 09/08/19 22:08 Mag-Ox - PO 400 mg BID [facility] Administration Metoprolol Succinate 50 mg 09/02/19 10:00 09/08/19 22:08 Toprol Xl - PO 50 mg BID [facility] Administration CBC, BMP 09/09/19 05:25 09/09/19 05:25 ASSESSMENT/PLAN: This is a 59 year old man with a history of HTN, hyperlipidemia, CAD, chronic diastolic heart failure, type 2 DM, stage 3 CKD, BPH with bladder outlet obstruction, 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 #Acute on Systolic CHF exacerbation. # Anasacra * increase IV lasix 100 mg BID, add metolazone per nephrology * Monitor I&O, weight * echo with EF 30%, with severe LV global hypokinesis * cont melrinone per cardiology * FU CMP * FU cardio reccs * will need EF surveillance after 3 mo optimized GDMT--rec ICD at that time if EF not improved per cardiology * #Stage 3 CK * Creatinine 3.1 ...3.2 worsening . * Monitor creatinine with diuresis * PK posiitve and DSDNA negative unlikely lupus * will benifit from renal biopsy as out pt * no signs of uruemia , hyperkalemia or acidosis per nephrology #Anemia * likely from CKD * Previously diagnosed with iron deficiency * Hgb unchanged from 04/2019 * iron studies normal * fobt negative #Hematuria, proteinuria * Renal US results noted * Nephrology consult * urine protein to creatinine normal * Check PK, Hepatitis, HIV, RPR * PK posiitve and DSDNA negative unlikely lupus #HTN * Continue Norvasc, Toprol XL, Lasix #Hyperlipidemia On no medication #CAD * Continue Toprol XL * Continue aspirin if no evidence of GI bleeding #Type 2 DM * Hold glipizide * Fingersticks with Novolog sliding scale #BPH #Obesity with BMI 39.0, educated # KELLEN screening as out pt #FEN * fluid restriction * monitor * sodium , K controlled diet # dispo: monitor in tele Visit type - Emergency Visit Emergency Visit: Yes ED Registration Date: 08/30/19 Care time: The patient presented to the Emergency Department on the above date and was hospitalized for further evaluation of their emergent condition. - New Patient This patient is new to me today: No - Critical Care Critical Care patient: No ATTENDING PHYSICIAN STATEMENT I saw and evaluated the patient. I reviewed the resident's note and discussed the case with the resident. I agree with the resident's findings and plan as documented. SUBJECTIVE: OBJECTIVE: ASSESSMENT AND PLAN:
[2019-09-09] MEDS: HEPARIN NA (PORCINE) 5,000 UNITS/ML 1ML VIAL SQ SCH ×2 (07:02→13:42)
[2019-09-09] MEDS: FUROSEMIDE 40 MG/4 ML INJECTABLE VIAL IVPUSH SCH ×2 (07:03→14:09)
[2019-09-09] MEDS: INSULIN SLIDING SCALE (NOVOLOG) 1 VIAL SQ SCH ×3 (07:12→17:28)
[2019-09-09 07:38] LABS: BASO % 0.5 % (0-2.0); EOS % 3.6 % (0-4.5); HEMATOCRIT 25.4 % (35.4-49); HEMOGLOBIN 8.4 GM/dL (11.7-16.9); LYMPH % 29.6 % (8-40); MCH 25.6 pg (25.7-33.7); MCHC 33.2 g/dl (32.0-35.9); MEAN CELL VOLUME 77.2 fl (80-96); MEAN PLT VOLUME 9.1 fl (7.5-11.1); MONO % 8.6 % (3.8-10.2); NEUT % 57.7 % (42.8-82.8); PLATELET COUNT 253 K/MM3 (134-434); RBC 3.29 M/mm3 (4.00-5.60); RDW 14.4 % (11.9-15.9); WHITE BLOOD COUNT 4.8 K/mm3 (4.0-10.0)
[2019-09-09] MEDS: MILRINONE 20MG/100ML IVPB - 20,000 MCG/100 ML ML IVPB SCH ×2 (08:13→13:40)
[2019-09-09 08:38] LABS: BILIRUBIN,TOTAL 0.2 mg/dL (0.2-1); BLOOD UREA NITROGEN 77.5 mg/dL (7-18); CALCIUM 7.3 mg/dL (8.5-10.1); CREATININE 3.2 mg/dL (0.55-1.3); MAGNESIUM 2.3 mg/dL (1.8-2.4); PHOSPHOROUS 5.4 mg/dL (2.5-4.9); POTASSIUM 4.5 mmol/L (3.5-5.1); TOT PROT 5.8 g/dl (6.4-8.2)
--- NOTE | 2019-09-09 09:06 | PN ---
Progress Note, Physician Chief Complaint: feels better Denies CP, SOB History of Present Illness: weight down to 212lb - Current Medication List Current Medications: Active Medications Acetaminophen (Tylenol -) 650 mg PO Q6H PRN PRN Reason: FEVER Last Admin: 09/03/19 15:25 Dose: 650 mg Amlodipine Besylate (Norvasc -) 10 mg PO DAILY [facility] Last Admin: 09/08/19 10:08 Dose: 10 mg Benzocaine/Menthol (Cepacol Lozenge -) 1 each MM Q2H PRN PRN Reason: SORE THROAT Last Admin: 09/06/19 22:34 Dose: 1 each Bisacodyl (Dulcolax Suppository -) 10 mg RC PRN PRN PRN Reason: CONSTIPATION Furosemide (Lasix Injection -) 100 mg IVPUSH BID@0600,1400 [facility] Last Admin: 09/09/19 07:03 Dose: 100 mg Guaifenesin/Codeine Phosphate (Robitussin Ac -) 10 ml PO Q8H PRN PRN Reason: COUGH Last Admin: 09/06/19 22:34 Dose: 10 ml Heparin Sodium (Porcine) (Heparin -) 5,000 unit SQ TID [facility] Last Admin: 09/09/19 07:02 Dose: 5,000 unit Milrinone Lactate/Dextrose (Milrinone 20mg/100ml Ivpb -) 20,000 mcg in 100 mls @ 6.892 mls/hr IVPB TITR [facility] Last Admin: 09/09/19 08:13 Dose: 0.25 mcg/kg/min, 6.892 mls/hr Insulin Aspart (Novolog Vial Sliding Scale -) 1 vial SQ ACHS [facility]; Protocol Last Admin: 09/09/19 07:12 Dose: Not Given Magnesium Oxide (Mag-Ox -) 400 mg PO BID [facility] Last Admin: 09/08/19 22:08 Dose: 400 mg Metoprolol Succinate (Toprol Xl -) 50 mg PO BID [facility] Last Admin: 09/08/19 22:08 Dose: 50 mg - Objective Vital Signs: Vital Signs Temperature 97.7 F 09/09/19 01:00 Pulse Rate 66 09/09/19 01:00 Respiratory Rate 15 09/09/19 01:00 Blood Pressure 141/65 09/09/19 01:00 O2 Sat by Pulse Oximetry (%) 100 09/08/19 21:00 Constitutional: Yes: No Distress Neck: Yes: Supple Cardiovascular: Yes: Regular Rate and Rhythm, JVD Respiratory: Yes: CTA Bilaterally Gastrointestinal: Yes: Soft, Abdomen, Obese Edema: Yes Edema: LLE: 2+ (warm), RLE: 2+ (warm) Neurological: Yes: Alert, Oriented ...Motor Strength: WNL Labs: CBC, BMP 09/09/19 05:25 09/09/19 05:25 Laboratory Tests 08/31/19 09/09/19 09/09/19 06:00 05:25 05:25 WBC 4.8 Hgb 8.4 L Plt Count 253 Sodium 132 L Potassium 4.5 BUN 77.5 H Creatinine 3.2 H Magnesium 2.3 Stool Occult Blood Negative Assessment/Plan Assessment/Plan cath 02/2018 nonobstructive CAD, nl EF Echo 09/15: mild conc LVH; severe, global LV hypo/EF 30%. nl RV. mild-mod TR. RVSP 42. tele: SR 59M h/o DM, HTN, HLD, s/p L great toe amputation and partial 2nd toe amputation p/w toe ulcer and bilateral lower extremity swelling: Acute on chronic systolic HF exacerbation - BNP >05798 - echo here with severe decreased lvef, new since 2018 echo, likely NICM given recent unremarkable cath - lasix 40 iv bid here--held 09/04 given Creat up to 2.5--bun/creat up further wt down 222 to 202. - 210 milrinone started, no increase in UOP and Cr rising - continue milrinone - Continue IV lasix - monitor lytes, replete K/Mag to usual strict targets - cont toprol (ok with milrinone) - consider outpt sleep study - defer RAAS blockers until renal fxn stabilizes s/p diuresis - will need EF surveillance after 3 mo optimized GDMT--rec ICD at that time if EF not improved JASWINDER/CKD: - Rising cr - cont milrinone - Renal following HTN: - bp reasonable - cont bb - JORGE +/- spirono later, as above
[2019-09-09] MEDS: MAGNESIUM OXIDE 400 MG TABLET (FP) PO SCH (10:01)
[2019-09-09] MEDS: amLODIPine BESYLATE 10 MG TABLET (FP) PO SCH (10:01)
--- NOTE | 2019-09-09 11:24 | PN ---
Progress Note, Physician History of Present Illness: PULMONARY ALERT,FEELING BETTER,LESS DYSPNEIC,LESS COUGH - Current Medication List Current Medications: Active Medications Acetaminophen (Tylenol -) 650 mg PO Q6H PRN PRN Reason: FEVER Last Admin: 09/03/19 15:25 Dose: 650 mg Amlodipine Besylate (Norvasc -) 10 mg PO DAILY [facility] Last Admin: 09/09/19 10:01 Dose: 10 mg Benzocaine/Menthol (Cepacol Lozenge -) 1 each MM Q2H PRN PRN Reason: SORE THROAT Last Admin: 09/06/19 22:34 Dose: 1 each Bisacodyl (Dulcolax Suppository -) 10 mg RC PRN PRN PRN Reason: CONSTIPATION Furosemide (Lasix Injection -) 100 mg IVPUSH BID@0600,1400 [facility] Last Admin: 09/09/19 07:03 Dose: 100 mg Guaifenesin/Codeine Phosphate (Robitussin Ac -) 10 ml PO Q8H PRN PRN Reason: COUGH Last Admin: 09/06/19 22:34 Dose: 10 ml Heparin Sodium (Porcine) (Heparin -) 5,000 unit SQ TID [facility] Last Admin: 09/09/19 07:02 Dose: 5,000 unit Milrinone Lactate/Dextrose (Milrinone 20mg/100ml Ivpb -) 20,000 mcg in 100 mls @ 6.892 mls/hr IVPB TITR [facility] Last Admin: 09/09/19 08:13 Dose: 0.25 mcg/kg/min, 6.892 mls/hr Insulin Aspart (Novolog Vial Sliding Scale -) 1 vial SQ ACHS [facility]; Protocol Last Admin: 09/09/19 07:12 Dose: Not Given Magnesium Oxide (Mag-Ox -) 400 mg PO BID [facility] Last Admin: 09/09/19 10:01 Dose: 400 mg Metoprolol Succinate (Toprol Xl -) 50 mg PO BID [facility] Last Admin: 09/09/19 10:01 Dose: 50 mg - Objective Vital Signs: Vital Signs Temperature 97.7 F 09/09/19 01:00 Pulse Rate 66 09/09/19 01:00 Respiratory Rate 15 09/09/19 01:00 Blood Pressure 141/65 09/09/19 01:00 O2 Sat by Pulse Oximetry (%) 100 09/08/19 21:00 Constitutional: Yes: Well Nourished, Calm Eyes: Yes: WNL HENT: Yes: WNL Neck: Yes: WNL Cardiovascular: Yes: Regular Rate and Rhythm, S1, S2 Respiratory: Yes: Rales (BIBASILAR RALES) Gastrointestinal: Yes: Normal Bowel Sounds, Soft Extremities: Yes: WNL Edema: Yes Labs: CBC, BMP 09/09/19 05:25 09/09/19 05:25 Problem List - Problems (1) Anasarca associated with disorder of kidney Code(s): N04.9 - NEPHROTIC SYNDROME WITH UNSPECIFIED MORPHOLOGIC CHANGES (2) CKD (chronic kidney disease) Code(s): N18.9 - CHRONIC KIDNEY DISEASE, UNSPECIFIED Qualifiers: Chronic kidney disease stage: unspecified stage Qualified Code(s): N18.9 - Chronic kidney disease, unspecified (3) Cough Code(s): R05 - COUGH (4) Edema Code(s): R60.9 - EDEMA, UNSPECIFIED Qualifiers: Edema type: generalized Qualified Code(s): R60.1 - Generalized edema (5) CHF (congestive heart failure) Code(s): I50.9 - HEART FAILURE, UNSPECIFIED Qualifiers: Heart failure type: unspecified Heart failure chronicity: chronic Qualified Code(s): I50.9 - Heart failure, unspecified (6) Anemia Code(s): D64.9 - ANEMIA, UNSPECIFIED (7) CAD (coronary artery disease) Code(s): I25.10 - ATHSCL HEART DISEASE OF [place] CORONARY ARTERY W/O ANG PCTRS (8) Diabetes Code(s): E11.9 - TYPE 2 DIABETES MELLITUS WITHOUT COMPLICATIONS (9) HLD (hyperlipidemia) Code(s): E78.5 - HYPERLIPIDEMIA, UNSPECIFIED (10) HTN (hypertension) Code(s): I10 - ESSENTIAL (PRIMARY) HYPERTENSION (11) Systolic and diastolic CHF w/reduced LV function, NYHA class 4 Code(s): I50.40 - UNSP COMBINED SYSTOLIC AND DIASTOLIC (CONGESTIVE) HRT FAIL Assessment/Plan IMP DYSPNEA/COUGH IMPROVING ACUTE ON CHRONIC SYSTOLIC/DIASTOLIC HF SEVERE LV SYSTOLIC DYSFUNCTION WITH SEVERE GLOBAL HYPOKINESIS ANASARCA ACUTE ON CHRONIC KIDNEY FAILURE PULMONARY HTN DM HLD H/O HEMOPTYSIS ANEMIA OSAS AHI 68 0N SLEEP SCREEN PLAN CONTINUE IV LASIX DAILY WTS O2 NEEDED F/U CHEST X-RAYS MONITOR LYTES,RENAL FUNCTION CHEST CT MONITOR H+H FULL SLEEP STUDIES OUTPATIENT DR RUST Problem List - Problems (1) Anasarca associated with disorder of kidney Code(s): N04.9 - NEPHROTIC SYNDROME WITH UNSPECIFIED MORPHOLOGIC CHANGES (2) CKD (chronic kidney disease) Code(s): N18.9 - CHRONIC KIDNEY DISEASE, UNSPECIFIED Qualifiers: Chronic kidney disease stage: unspecified stage Qualified Code(s): N18.9 - Chronic kidney disease, unspecified (3) Cough Code(s): R05 - COUGH (4) Edema Code(s): R60.9 - EDEMA, UNSPECIFIED Qualifiers: Edema type: generalized Qualified Code(s): R60.1 - Generalized edema (5) CHF (congestive heart failure) Code(s): I50.9 - HEART FAILURE, UNSPECIFIED Qualifiers: Heart failure type: unspecified Heart failure chronicity: chronic Qualified Code(s): I50.9 - Heart failure, unspecified (6) Anemia Code(s): D64.9 - ANEMIA, UNSPECIFIED (7) CAD (coronary artery disease) Code(s): I25.10 - ATHSCL HEART DISEASE OF [place] CORONARY ARTERY W/O ANG PCTRS (8) Diabetes Code(s): E11.9 - TYPE 2 DIABETES MELLITUS WITHOUT COMPLICATIONS (9) HLD (hyperlipidemia) Code(s): E78.5 - HYPERLIPIDEMIA, UNSPECIFIED (10) HTN (hypertension) Code(s): I10 - ESSENTIAL (PRIMARY) HYPERTENSION (11) Systolic and diastolic CHF w/reduced LV function, NYHA class 4 Code(s): I50.40 - UNSP COMBINED SYSTOLIC AND DIASTOLIC (CONGESTIVE) HRT FAIL
--- NOTE | 2019-09-09 12:05 | PN ---
Teaching Attending Note Name of Resident: Ariel Sun ATTENDING PHYSICIAN STATEMENT I saw and evaluated the patient. I reviewed the resident's note and discussed the case with the resident. I agree with the resident's findings and plan as documented. SUBJECTIVE: Patient seen and examined bedside. Feels better, breathing improved , LE edema improving. VSS, no fevers overnight. Objective: GENERAL: AAOx3 in NAD, Speaks Malagasy, sitting up in bed HEAD: NC/AT EYES: EOMI, Conjunctiva clear, sclera anicteric ENT: moist mucous membrane NECK: Supple, no JVD LUNGS: good air entry b/l, slight crackle LLB, otherwise clear HEART: RRR, NSR, normal s1, s2, murmur no M/R/G ABDOMEN: Soft, ND, NT, +BS 4 Q, no CVA Tenderness, no abdominal wall edema LOWER EXTREMITIES: 2-3+ pitting edema, going down, dry extremities NEUROLOGICAL: No focal deficit. Normal speech. gait not observed. PSYCHIATRIC: Cooperative. Good eye contact. Appropriate mood and affect. SKIN: Warm, dry Vital Signs - 24 hr 09/08/19 09/08/19 09/08/19 14:00 21:00 21:05 Temperature 97.5 F L 97.8 F Pulse Rate 63 65 Respiratory 19 Rate Blood Pressure 134/73 O2 Sat by Pulse 100 Oximetry (%) 09/09/19 09/09/19 01:00 09:00 Temperature 97.7 F 98 F Pulse Rate 66 64 Respiratory 15 18 Rate Blood Pressure 141/65 144/78 O2 Sat by Pulse Oximetry (%) Microbiology 09/01/19 22:00 Urine - Urine Clean Catch Urine Culture - Final Group D Strep Or Entero Coccus Laboratory Results - last 24 hr 09/08/19 09/08/19 09/09/19 16:17 22:04 05:25 WBC RBC Hgb Hct MCV MCH MCHC RDW Plt Count MPV Absolute Neuts (auto) Neutrophils % Lymphocytes % Monocytes % Eosinophils % Basophils % Nucleated RBC % Sodium 132 L Potassium 4.5 Chloride 99 Carbon Dioxide 24 Anion Gap 9 BUN 77.5 H Creatinine 3.2 H Est GFR (CKD-EPI)AfAm 23.46 Est GFR (CKD-EPI)NonAf 20.24 POC Glucometer 179 198 Random Glucose 126 H Calcium 7.3 L Phosphorus 5.4 H Magnesium 2.3 Total Bilirubin 0.2 AST 21 ALT 16 Alkaline Phosphatase 155 H Total Protein 5.8 L Albumin 2.0 L 09/09/19 09/09/19 05:25 07:10 WBC 4.8 RBC 3.29 L Hgb 8.4 L Hct 25.4 L MCV 77.2 L MCH 25.6 L MCHC 33.2 RDW 14.4 Plt Count 253 MPV 9.1 Absolute Neuts (auto) 2.8 Neutrophils % 57.7 Lymphocytes % 29.6 Monocytes % 8.6 Eosinophils % 3.6 Basophils % 0.5 Nucleated RBC % 0 Sodium Potassium Chloride Carbon Dioxide Anion Gap BUN Creatinine Est GFR (CKD-EPI)AfAm Est GFR (CKD-EPI)NonAf POC Glucometer 121 Random Glucose Calcium Phosphorus Magnesium Total Bilirubin AST ALT Alkaline Phosphatase Total Protein Albumin Current Medications Generic Name Dose Route Start Last Admin Trade Name Freq PRN Reason Stop Dose Admin Acetaminophen 650 mg 09/03/19 15:18 09/03/19 15:25 Tylenol - PO 650 mg Q6H PRN Administration FEVER Amlodipine Besylate 10 mg 09/01/19 10:00 09/09/19 10:01 Norvasc - PO 10 mg DAILY [facility] Administration Benzocaine/Menthol 1 each 09/04/19 15:59 09/06/19 22:34 Cepacol Lozenge - MM 1 each Q2H PRN Administration SORE THROAT Bisacodyl 10 mg 08/31/19 05:01 Dulcolax Suppository - RC PRN PRN CONSTIPATION Furosemide 100 mg 09/07/19 10:40 09/09/19 07:03 Lasix Injection - IVPUSH 100 mg BID@0600,1400 [facility] Administration Guaifenesin/Codeine Phosphate 10 ml 09/06/19 01:54 09/06/19 22:34 Robitussin Ac - PO 10 ml Q8H PRN Administration COUGH Heparin Sodium (Porcine) 5,000 unit 08/31/19 14:00 09/09/19 07:02 Heparin - SQ 5,000 unit TID [facility] Administration Milrinone Lactate/Dextrose 20,000 mcg in 100 mls @ 6.892 mls/hr 09/05/19 11: 30 09/09/19 08:13 Milrinone 20mg/100ml Ivpb - IVPB 0.25 mcg/kg/min TITR [facility] 6.892 mls/hr Administration 0.25 MCG/KG/MIN Insulin Aspart 1 vial 08/31/19 07:00 09/09/19 07:12 Novolog Vial Sliding Scale - SQ Not Given ACHS [facility] Protocol Magnesium Oxide 400 mg 09/04/19 10:00 09/09/19 10:01 Mag-Ox - PO 400 mg BID [facility] Administration Metoprolol Succinate 50 mg 09/02/19 10:00 09/09/19 10:01 Toprol Xl - PO 50 mg BID [facility] Administration 59 M h/o HTN, hyperlipidemia, CAD, HFrEF with acute exacerbation, type 2 DM, stage 3 CKD, BPH with bladder outlet obstruction, 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 Acute on chronic systolic HF with diffuse anasarca Cont. IV lasix 100 mg BID, cont. Milrinone drip as per cardiology Monitor I&O, weight checks daily, fluid restriction <1L/daily echo with EF 30%, with severe LV global hypokinesis will need EF surveillance after 3 mo optimized GDMT--rec ICD at that time if EF not improved per cardiology Cardiology consult: Dr Barrios CKD 3B Creatinine 3.2 worsening slightly, likely 2/2 aggressive diuresis Cont. to monitor CRE PK posiitve and DSDNA negative unlikely lupus will benifit from renal biopsy as outpatient no signs of uruemia , hyperkalemia or acidosis, no need for HD at this time Renal consult: Dr Rudolph Chronic anemia likely ACD Previously diagnosed with iron deficiency Hgb unchanged from 04/2019 iron studies normal fobt negative Hematuria Renal US results noted Nephrology consult urine protein to creatinine normal PK posiitve and DSDNA negative unlikely lupus BPH monitor urine output, if decreased get Bladder US to assess post-void residual HTN Continue Norvasc, Toprol XL, Lasix HLD restart statin CAD Continue Toprol XL Continue aspirin if no evidence of GI bleeding T2DM ISS, basal insulin PRN Cont. tele monitoring Heparin SC DVT ppx
[2019-09-09] MEDS ORDERED: METOLAZONE 2.5 MG TABLET (FP) PO ONE (13:17)
[2019-09-09] MEDS ORDERED: PT OWN MED DRAWER 7, Y5N ONE ×2 (13:32→18:50)
--- NOTE | 2019-09-09 14:13 | PN ---
Progress Note (short form) - Note Progress Note: Renal follow up for CKD/Fluid overload Seen and examined at the bedside awake and alert sob is improved, leg edema is improved denies any cp, abd pain, fever, chills, N/V/D, weakness, LEAL or confusion no overnight events making urine Vital Signs Temperature 98 F 09/09/19 09:00 Pulse Rate 64 09/09/19 09:00 Respiratory Rate 18 09/09/19 09:00 Blood Pressure 144/78 09/09/19 09:00 O2 Sat by Pulse Oximetry (%) 100 09/08/19 21:00 Intake & Output 09/06/19 09/07/19 09/08/19 09/09/19 23:59 23:59 23:59 23:59 Intake Total 765.2 452.8 467.6 55.2 Output Total 1100 1500 3775 1170 Balance -334.8 -1047.2 -3307.4 -1114.8 Weight 98.067 kg 98.486 kg 97.432 kg 96.162 kg NAD RRR neck supple no JVD Dec BS at the lung bases soft NT/ND ++ upper and lower extremity edema no cyanosis or clubbing CBC, BMP 09/09/19 05:25 09/09/19 05:25 Current Medications Acetaminophen (Tylenol -) 650 mg PO Q6H PRN PRN Reason: FEVER Last Admin: 09/03/19 15:25 Dose: 650 mg Amlodipine Besylate (Norvasc -) 10 mg PO DAILY [facility] Last Admin: 09/09/19 10:01 Dose: 10 mg Benzocaine/Menthol (Cepacol Lozenge -) 1 each MM Q2H PRN PRN Reason: SORE THROAT Last Admin: 09/06/19 22:34 Dose: 1 each Bisacodyl (Dulcolax Suppository -) 10 mg RC PRN PRN PRN Reason: CONSTIPATION Furosemide (Lasix Injection -) 100 mg IVPUSH BID@0600,1400 [facility] Last Admin: 09/09/19 14:09 Dose: 100 mg Guaifenesin/Codeine Phosphate (Robitussin Ac -) 10 ml PO Q8H PRN PRN Reason: COUGH Last Admin: 09/06/19 22:34 Dose: 10 ml Heparin Sodium (Porcine) (Heparin -) 5,000 unit SQ TID [facility] Last Admin: 09/09/19 13:42 Dose: 5,000 unit Milrinone Lactate/Dextrose (Milrinone 20mg/100ml Ivpb -) 20,000 mcg in 100 mls @ 6.892 mls/hr IVPB TITR [facility] Last Admin: 09/09/19 13:40 Dose: 0.25 mcg/kg/min, 6.892 mls/hr Insulin Aspart (Novolog Vial Sliding Scale -) 1 vial SQ ACHS [facility]; Protocol Last Admin: 09/09/19 12:46 Dose: 2 units Magnesium Oxide (Mag-Ox -) 400 mg PO BID [facility] Last Admin: 09/09/19 10:01 Dose: 400 mg Metoprolol Succinate (Toprol Xl -) 50 mg PO BID [facility] Last Admin: 09/09/19 10:01 Dose: 50 mg 59 year old gentleman with history of CKD stage 3, hypertension, DM type 2, BPH, hyperlipidemia who presented from home with shortness of breath, leg and arm swelling and admitted for diastolic HF. 1. Anasarca 2. Diastolic HF 3. CKD stage 3 4. Metabolic acidosis 5. Anemia 6. Proteinuria Renal function worse then baseline but stable in setting of aggressive diuresis Clinically imrproving (weights improving) with Lasix, metolazone and milrinone Fluid overload likely multifactorial from diastolic HF/CKD/Proteinuria UPCR is 11, in nephrotic range, PK is positive C3/C4, Anti-DS DNA negative so unlikely Lupus can consider renal biopsy as an outpatient once volume status improved Will give Metolazone 7.5mg today trend weights no signs of uremia, hyperkalmeia or overt acidosis Low K diet Trend renal function and electrolytes daily Thank you Rufino Rudolph DO
[2019-09-10] MEDS: MAGNESIUM OXIDE 400 MG TABLET (FP) PO SCH ×3 (00:15→23:24)
[2019-09-10] MEDS: HEPARIN NA (PORCINE) 5,000 UNITS/ML 1ML VIAL SQ SCH ×4 (00:15→23:24)
[2019-09-10] MEDS: INSULIN SLIDING SCALE (NOVOLOG) 1 VIAL SQ SCH ×5 (00:33→23:24)
[2019-09-10] MEDS ORDERED: PT OWN MED DRAWER 7, Y5N ONE (06:23)
[2019-09-10] MEDS: METOLAZONE 5 MG TABLET PO SCH (06:24)
[2019-09-10] MEDS: FUROSEMIDE 40 MG/4 ML INJECTABLE VIAL IVPUSH SCH ×2 (06:24→13:51)
[2019-09-10 07:07] LABS: BASO % 0.7 % (0-2.0); EOS % 4.7 % (0-4.5); HEMATOCRIT 26.4 % (35.4-49); LYMPH % 30.4 % (8-40); MCH 26.2 pg (25.7-33.7); MCHC 34.1 g/dl (32.0-35.9); MEAN CELL VOLUME 76.7 fl (80-96); MONO % 8.6 % (3.8-10.2); NEUT % 55.6 % (42.8-82.8); PLATELET COUNT 296 K/MM3 (134-434); RBC 3.45 M/mm3 (4.00-5.60); RDW 14.8 % (11.9-15.9); WHITE BLOOD COUNT 4.8 K/mm3 (4.0-10.0)
[2019-09-10 07:44] LABS: ALBUMIN 2.2 g/dl (3.4-5.0); BILIRUBIN,TOTAL 0.3 mg/dL (0.2-1); BLOOD UREA NITROGEN 79.8 mg/dL (7-18); CALCIUM 7.8 mg/dL (8.5-10.1); CREATININE 3.3 mg/dL (0.55-1.3); MAGNESIUM 2.5 mg/dL (1.8-2.4); PHOSPHOROUS 5.6 mg/dL (2.5-4.9); POTASSIUM 4.5 mmol/L (3.5-5.1); TOT PROT 6.4 g/dl (6.4-8.2)
[2019-09-10] MEDS: amLODIPine BESYLATE 10 MG TABLET (FP) PO SCH (11:21)
--- NOTE | 2019-09-10 11:49 | PN ---
Progress Note (short form) - Note Progress Note: s: edema improving. no chest pain, palps, dizziness Current Medications Acetaminophen (Tylenol -) 650 mg PO Q6H PRN PRN Reason: FEVER Last Admin: 09/03/19 15:25 Dose: 650 mg Amlodipine Besylate (Norvasc -) 10 mg PO DAILY [facility] Last Admin: 09/10/19 11:21 Dose: 10 mg Benzocaine/Menthol (Cepacol Lozenge -) 1 each MM Q2H PRN PRN Reason: SORE THROAT Last Admin: 09/06/19 22:34 Dose: 1 each Bisacodyl (Dulcolax Suppository -) 10 mg RC PRN PRN PRN Reason: CONSTIPATION Furosemide (Lasix Injection -) 100 mg IVPUSH BID@0600,1400 [facility] Last Admin: 09/10/19 06:24 Dose: 100 mg Guaifenesin/Codeine Phosphate (Robitussin Ac -) 10 ml PO Q8H PRN PRN Reason: COUGH Last Admin: 09/06/19 22:34 Dose: 10 ml Heparin Sodium (Porcine) (Heparin -) 5,000 unit SQ TID [facility] Last Admin: 09/10/19 06:24 Dose: 5,000 unit Milrinone Lactate/Dextrose (Milrinone 20mg/100ml Ivpb -) 20,000 mcg in 100 mls @ 6.892 mls/hr IVPB TITR [facility] Last Admin: 20 13:40 Dose: 0.25 mcg/kg/min, 6.892 mls/hr Insulin Aspart (Novolog Vial Sliding Scale -) 1 vial SQ ACHS [facility]; Protocol Last Admin: 09/10/19 06:25 Dose: Not Given Magnesium Oxide (Mag-Ox -) 400 mg PO BID [facility] Last Admin: 09/10/19 11:21 Dose: 400 mg Metolazone (Zaroxolyn -) 5 mg PO DAILY@0530 [facility] Last Admin: 09/10/19 06:24 Dose: 5 mg Metoprolol Succinate (Toprol Xl -) 50 mg PO BID [facility] Last Admin: 09/10/19 11:21 Dose: 50 mg Vital Signs Period Temp Pulse Resp BP Sys/Garner Pulse Ox Last 24 Hr 97.6 F-98.2 F 65-72 18-22 113-142/62-75 97 Constitutional: Yes: No Distress Neck: Yes: Supple Cardiovascular: Yes: Regular Rate and Rhythm, JVD Respiratory: Yes: CTA Bilaterally Gastrointestinal: Yes: Soft, Abdomen, Obese Edema: Yes Edema: LLE: 2+ (warm), RLE: 2+ (warm) Neurological: Yes: Alert, Oriented no jaundice, diaphoresis not agitated Assessment/Plan cath 02/2018 nonobstructive CAD, nl EF Echo 09/15: mild conc LVH; severe, global LV hypo/EF 30%. nl RV. mild-mod TR. RVSP 42. 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 - 09/05 milrinone started, no increase in UOP and Cr rising, now improving on higher doses of lasix - continue milrinone - Continue IV lasix with metolazone - monitor lytes, replete K/Mag to usual strict targets, daily weights - cont toprol (ok with milrinone) - consider outpt sleep study - defer RAAS blockers until renal fxn stabilizes s/p diuresis - will need EF surveillance after 3 mo optimized GDMT--rec ICD at that time if EF not improved JASWINDER/CKD: - Rising cr - cont milrinone - Renal following HTN: - bp reasonable - cont bb - JORGE +/- spirono later, as above
[2019-09-10] MEDS: MILRINONE 20MG/100ML IVPB - 20,000 MCG/100 ML ML IVPB SCH (12:56)
--- NOTE | 2019-09-10 13:00 | PN ---
Progress Note (short form) - Note Progress Note: Resting in NAD. Breathing feels overall better. No acute events overnight. Intake & Output 09/07/19 09/08/19 09/09/19 09/10/19 23:59 23:59 23:59 23:59 Intake Total 452.8 467.6 55.2 82.8 Output Total 1500 3775 1570 500 Balance -1047.2 -3307.4 -1514.8 -417.2 Weight 217 lb 2 oz 214 lb 12.8 oz 212 lb 206 lb 9.6 oz Last Vital Signs Temp Pulse Resp BP Pulse Ox 97.6 F 70 20 133/64 95 09/10/19 10:00 09/10/19 10:00 09/10/19 10:00 09/10/19 10:00 09/10/19 09:00 Active Medications Acetaminophen (Tylenol -) 650 mg PO Q6H PRN PRN Reason: FEVER Last Admin: 09/03/19 15:25 Dose: 650 mg Amlodipine Besylate (Norvasc -) 10 mg PO DAILY [facility] Last Admin: 09/10/19 11:21 Dose: 10 mg Benzocaine/Menthol (Cepacol Lozenge -) 1 each MM Q2H PRN PRN Reason: SORE THROAT Last Admin: 09/06/19 22:34 Dose: 1 each Bisacodyl (Dulcolax Suppository -) 10 mg RC PRN PRN PRN Reason: CONSTIPATION Furosemide (Lasix Injection -) 100 mg IVPUSH BID@0600,1400 [facility] Last Admin: 09/10/19 06:24 Dose: 100 mg Guaifenesin/Codeine Phosphate (Robitussin Ac -) 10 ml PO Q8H PRN PRN Reason: COUGH Last Admin: 09/06/19 22:34 Dose: 10 ml Heparin Sodium (Porcine) (Heparin -) 5,000 unit SQ TID [facility] Last Admin: 09/10/19 06:24 Dose: 5,000 unit Milrinone Lactate/Dextrose (Milrinone 20mg/100ml Ivpb -) 20,000 mcg in 100 mls @ 6.892 mls/hr IVPB TITR [facility] Last Admin: 09/10/19 12:56 Dose: 0.25 mcg/kg/min, 6.892 mls/hr Insulin Aspart (Novolog Vial Sliding Scale -) 1 vial SQ ACHS [facility]; Protocol Last Admin: 09/10/19 12:43 Dose: 4 units Magnesium Oxide (Mag-Ox -) 400 mg PO BID [facility] Last Admin: 09/10/19 11:21 Dose: 400 mg Metolazone (Zaroxolyn -) 5 mg PO DAILY@0530 [facility] Last Admin: 09/10/19 06:24 Dose: 5 mg Metoprolol Succinate (Toprol Xl -) 50 mg PO BID [facility] Last Admin: 09/10/19 11:21 Dose: 50 mg Constitutional: Yes: NAD Eyes: Yes: WNL HENT: Yes: WNL Neck: Yes: WNL Cardiovascular: Yes: Regular Rate and Rhythm, S1, S2 Respiratory: Yes: Bibasilar rales Gastrointestinal: Yes: Normal Bowel Sounds, Soft Extremities: Yes: WNL Edema: Yes Labs: Laboratory Results - last 24 hr 09/09/19 09/10/19 09/10/19 17:22 00:31 05:25 WBC RBC Hgb Hct MCV MCH MCHC RDW Plt Count MPV Absolute Neuts (auto) Neutrophils % Lymphocytes % Monocytes % Eosinophils % Basophils % Nucleated RBC % Sodium 133 L Potassium 4.5 Chloride 100 Carbon Dioxide 25 Anion Gap 9 BUN 79.8 H Creatinine 3.3 H Est GFR (CKD-EPI)AfAm 22.60 Est GFR (CKD-EPI)NonAf 19.50 POC Glucometer 188 279 Random Glucose 94 Calcium 7.8 L Phosphorus 5.6 H Magnesium 2.5 H Total Bilirubin 0.3 AST 20 ALT 16 Alkaline Phosphatase 151 H Total Protein 6.4 Albumin 2.2 L 09/10/19 09/10/19 09/10/19 05:25 06:15 12:41 WBC 4.8 RBC 3.45 L Hgb 9.0 L Hct 26.4 L MCV 76.7 L MCH 26.2 MCHC 34.1 RDW 14.8 Plt Count 296 MPV 9.0 Absolute Neuts (auto) 2.7 Neutrophils % 55.6 Lymphocytes % 30.4 Monocytes % 8.6 Eosinophils % 4.7 H Basophils % 0.7 Nucleated RBC % 0 Sodium Potassium Chloride Carbon Dioxide Anion Gap BUN Creatinine Est GFR (CKD-EPI)AfAm Est GFR (CKD-EPI)NonAf POC Glucometer 92 227 Random Glucose Calcium Phosphorus Magnesium Total Bilirubin AST ALT Alkaline Phosphatase Total Protein Albumin Problem List - Problems (1) Anasarca associated with disorder of kidney Code(s): N04.9 - NEPHROTIC SYNDROME WITH UNSPECIFIED MORPHOLOGIC CHANGES (2) CKD (chronic kidney disease) Code(s): N18.9 - CHRONIC KIDNEY DISEASE, UNSPECIFIED Qualifiers: Chronic kidney disease stage: unspecified stage Qualified Code(s): N18.9 - Chronic kidney disease, unspecified (3) Cough Code(s): R05 - COUGH (4) Edema Code(s): R60.9 - EDEMA, UNSPECIFIED Qualifiers: Edema type: generalized Qualified Code(s): R60.1 - Generalized edema (5) CHF (congestive heart failure) Code(s): I50.9 - HEART FAILURE, UNSPECIFIED Qualifiers: Heart failure type: unspecified Heart failure chronicity: chronic Qualified Code(s): I50.9 - Heart failure, unspecified (6) Anemia Code(s): D64.9 - ANEMIA, UNSPECIFIED (7) CAD (coronary artery disease) Code(s): I25.10 - ATHSCL HEART DISEASE OF [place] CORONARY ARTERY W/O ANG PCTRS (8) Diabetes Code(s): E11.9 - TYPE 2 DIABETES MELLITUS WITHOUT COMPLICATIONS (9) HLD (hyperlipidemia) Code(s): E78.5 - HYPERLIPIDEMIA, UNSPECIFIED (10) HTN (hypertension) Code(s): I10 - ESSENTIAL (PRIMARY) HYPERTENSION (11) Systolic and diastolic CHF w/reduced LV function, NYHA class 4 Code(s): I50.40 - UNSP COMBINED SYSTOLIC AND DIASTOLIC (CONGESTIVE) HRT FAIL Assessment/Plan IMP DYSPNEA/COUGH IMPROVING ACUTE ON CHRONIC SYSTOLIC/DIASTOLIC HF SEVERE LV SYSTOLIC DYSFUNCTION WITH SEVERE GLOBAL HYPOKINESIS ANASARCA ACUTE ON CHRONIC KIDNEY FAILURE PULMONARY HTN DM HLD H/O HEMOPTYSIS ANEMIA OSAS AHI 68 0N SLEEP SCREEN PLAN IV LASIX DAILY WTS O2 NEEDED MONITOR LYTES,RENAL FUNCTION MONITOR H+H FULL SLEEP STUDIES OUTPATIENT Dr Saxena
--- NOTE | 2019-09-10 13:32 | PN ---
<Jesenia Butcher - Last Filed: 09/10/19 13:08> Physical Exam: SUBJECTIVE: Patient seen and examined at bedside this morning. No acute events overnight. Patient reports feeling better, denies any chest pain, shortness of breath, dizziness. OBJECTIVE: Vital Signs Temperature 97.6 F 09/10/19 10:00 Pulse Rate 70 09/10/19 10:00 Respiratory Rate 20 09/10/19 10:00 Blood Pressure 133/64 09/10/19 10:00 O2 Sat by Pulse Oximetry (%) 95 09/10/19 09:00 GENERAL: The patient is awake, alert, and fully oriented, in no acute distress. HEAD: Normal with no signs of trauma. EYES: PERRLA, EOMI, conjunctiva clear. No ptosis. ENT: dry mucous membranes. NECK: Trachea midline, full range of motion, supple. LUNGS: +bibasilar fine crackles HEART: Regular rate and rhythm, S1, S2 without murmur, rub or gallop. ABDOMEN: Soft, nontender, nondistended, normoactive bowel sounds. EXTREMITIES: 2+ pulses, warm, well-perfused, no edema. +2 pitting edema bilaterally NEUROLOGICAL: Cranial nerves II through XII grossly intact. Normal speech. PSYCH: Normal mood, normal affect. SKIN: Warm, dry, normal turgor, no rashes or lesions noted Laboratory Results - last 24 hr 09/09/19 09/10/19 09/10/19 17:22 00:31 05:25 WBC RBC Hgb Hct MCV MCH MCHC RDW Plt Count MPV Absolute Neuts (auto) Neutrophils % Lymphocytes % Monocytes % Eosinophils % Basophils % Nucleated RBC % Sodium 133 L Potassium 4.5 Chloride 100 Carbon Dioxide 25 Anion Gap 9 BUN 79.8 H Creatinine 3.3 H Est GFR (CKD-EPI)AfAm 22.60 Est GFR (CKD-EPI)NonAf 19.50 POC Glucometer 188 279 Random Glucose 94 Calcium 7.8 L Phosphorus 5.6 H Magnesium 2.5 H Total Bilirubin 0.3 AST 20 ALT 16 Alkaline Phosphatase 151 H Total Protein 6.4 Albumin 2.2 L 09/10/19 09/10/19 09/10/19 05:25 06:15 12:41 WBC 4.8 RBC 3.45 L Hgb 9.0 L Hct 26.4 L MCV 76.7 L MCH 26.2 MCHC 34.1 RDW 14.8 Plt Count 296 MPV 9.0 Absolute Neuts (auto) 2.7 Neutrophils % 55.6 Lymphocytes % 30.4 Monocytes % 8.6 Eosinophils % 4.7 H Basophils % 0.7 Nucleated RBC % 0 Sodium Potassium Chloride Carbon Dioxide Anion Gap BUN Creatinine Est GFR (CKD-EPI)AfAm Est GFR (CKD-EPI)NonAf POC Glucometer 92 227 Random Glucose Calcium Phosphorus Magnesium Total Bilirubin AST ALT Alkaline Phosphatase Total Protein Albumin Active Medications Generic Name Dose Route Start Last Admin Trade Name Freq PRN Reason Stop Dose Admin Acetaminophen 650 mg 09/03/19 15:18 09/03/19 15:25 Tylenol - PO 650 mg Q6H PRN Administration FEVER Amlodipine Besylate 10 mg 09/01/19 10:00 09/10/19 11:21 Norvasc - PO 10 mg DAILY [facility] Administration Benzocaine/Menthol 1 each 09/04/19 15:59 09/06/19 22:34 Cepacol Lozenge - MM 1 each Q2H PRN Administration SORE THROAT Bisacodyl 10 mg 08/31/19 05:01 Dulcolax Suppository - RC PRN PRN CONSTIPATION Furosemide 100 mg 09/07/19 10:40 09/10/19 06:24 Lasix Injection - IVPUSH 100 mg BID@0600,1400 [facility] Administration Guaifenesin/Codeine Phosphate 10 ml 09/06/19 01:54 09/06/19 22:34 Robitussin Ac - PO 10 ml Q8H PRN Administration COUGH Heparin Sodium (Porcine) 5,000 unit 08/31/19 14:00 09/10/19 06:24 Heparin - SQ 5,000 unit TID [facility] Administration Milrinone Lactate/Dextrose 20,000 mcg in 100 mls @ 6.892 mls/hr 09/05/19 11: 30 09/10/19 12:56 Milrinone 20mg/100ml Ivpb - IVPB 0.25 mcg/kg/min TITR [facility] 6.892 mls/hr Administration 0.25 MCG/KG/MIN Insulin Aspart 1 vial 08/31/19 07:00 09/10/19 12:43 Novolog Vial Sliding Scale - SQ 4 units ACHS [facility] Administration Protocol Magnesium Oxide 400 mg 09/04/19 10:00 09/10/19 11:21 Mag-Ox - PO 400 mg BID [facility] Administration Metolazone 5 mg 09/10/19 05:30 09/10/19 06:24 Zaroxolyn - PO 5 mg DAILY@0530 [facility] Administration Metoprolol Succinate 50 mg 09/02/19 10:00 09/10/19 11:21 Toprol Xl - PO 50 mg BID [facility] Administration ASSESSMENT/PLAN: Patient is a 59 M h/o HTN, hyperlipidemia, CAD, HFrEF with acute exacerbation, type 2 DM, stage 3 CKD, BPH with bladder outlet obstruction, 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 #Acute on chronic systolic HF exacerbation - BNP >05276 - Echo - mild conc LVH; severe, global LV hypo/EF 30%. nl RV. mild-mod TR. RVSP 42mmHg - continue IV Lasix 100mg bid - Continue Milrinone drip - Monitor I&O, daily weights - Monitor lytes, replete prn - Fluid restricted <1L/day - Continue toprol, metolazone - supplemental oxygen as need - Cardiology consulted. REcommendations appreciated. - will need EF surveillance after 3 mo optimized GDMT--rec ICD at that time if EF not improved - will need sleep study as outpatient #JASWINDER/CKD -worsening -UPCR is 11, in nephrotic range, PK is positive -C3/C4, Anti-DS DNA negative so unlikely Lupus -Nephrology (Dr. Rudolph) consulted. Recommendations appreciated. -consider renal biopsy as an outpatient once volume status improved -Metolazone 5mg daily, given 7.5mg yesterday -continue to monitor renal function #HTN -continue Toprol XL 50mg BID, amlodipine 10mg dialy -IV lasix #T2DM -BGM ACHs -Insulin sliding scale #Chronic anemia -likely ACD -Previously diagnosed with iron deficiency -Hgb unchanged from 04/2019 -iron studies normal -fobt negative #FEN -Not on any standing fluids -routine bmp monitoring -sodium restricted/diabetic diet #Prophylaxis -Heparin 5000u sq tid #Disposition -full code -tele Visit type - Emergency Visit Emergency Visit: Yes ED Registration Date: 08/30/19 Care time: The patient presented to the Emergency Department on the above date and was hospitalized for further evaluation of their emergent condition. - New Patient This patient is new to me today: Yes Date on this admission: 09/10/19 - Critical Care Critical Care patient: No ATTENDING PHYSICIAN STATEMENT I saw and evaluated the patient. I reviewed the resident's note and discussed the case with the resident. I agree with the resident's findings and plan as documented. SUBJECTIVE: OBJECTIVE: ASSESSMENT AND PLAN: <Sharda Peters - Last Filed: 09/10/19 17:38> Physical Exam: SUBJECTIVE: Patient seen and examined OBJECTIVE: Vital Signs Period Temp Pulse Resp BP Sys/Garner Pulse Ox Last 24 Hr 97.6 F-97.9 F 66-72 19-22 113-148/62-79 95-97 GENERAL: The patient is awake, alert, and fully oriented, in no acute distress. HEAD: Normal with no signs of trauma. EYES: PERRL, extraocular movements intact, sclera anicteric, conjunctiva clear. No ptosis. ENT: Ears normal, nares patent, oropharynx clear without exudates, moist mucous membranes. NECK: Trachea midline, full range of motion, supple. LUNGS: Breath sounds equal, clear to auscultation bilaterally, no wheezes, no crackles, no accessory muscle use. HEART: Regular rate and rhythm, S1, S2 without murmur, rub or gallop. ABDOMEN: Soft, nontender, nondistended, normoactive bowel sounds, no guarding, no rebound, no hepatosplenomegaly, no masses. EXTREMITIES: 2+ pulses, warm, well-perfused, no edema. NEUROLOGICAL: Cranial nerves II through XII grossly intact. Normal speech, gait not observed. PSYCH: Normal mood, normal affect. SKIN: Warm, dry, normal turgor, no rashes or lesions noted Laboratory Results - last 24 hr 09/10/19 09/10/19 09/10/19 00:31 05:25 05:25 WBC 4.8 RBC 3.45 L Hgb 9.0 L Hct 26.4 L MCV 76.7 L MCH 26.2 MCHC 34.1 RDW 14.8 Plt Count 296 MPV 9.0 Absolute Neuts (auto) 2.7 Neutrophils % 55.6 Lymphocytes % 30.4 Monocytes % 8.6 Eosinophils % 4.7 H Basophils % 0.7 Nucleated RBC % 0 Sodium 133 L Potassium 4.5 Chloride 100 Carbon Dioxide 25 Anion Gap 9 BUN 79.8 H Creatinine 3.3 H Est GFR (CKD-EPI)AfAm 22.60 Est GFR (CKD-EPI)NonAf 19.50 POC Glucometer 279 Random Glucose 94 Calcium 7.8 L Phosphorus 5.6 H Magnesium 2.5 H Total Bilirubin 0.3 AST 20 ALT 16 Alkaline Phosphatase 151 H Total Protein 6.4 Albumin 2.2 L 09/10/19 09/10/19 06:15 12:41 WBC RBC Hgb Hct MCV MCH MCHC RDW Plt Count MPV Absolute Neuts (auto) Neutrophils % Lymphocytes % Monocytes % Eosinophils % Basophils % Nucleated RBC % Sodium Potassium Chloride Carbon Dioxide Anion Gap BUN Creatinine Est GFR (CKD-EPI)AfAm Est GFR (CKD-EPI)NonAf POC Glucometer 92 227 Random Glucose Calcium Phosphorus Magnesium Total Bilirubin AST ALT Alkaline Phosphatase Total Protein Albumin Active Medications Generic Name Dose Route Start Last Admin Trade Name Freq PRN Reason Stop Dose Admin Acetaminophen 650 mg 09/03/19 15:18 09/03/19 15:25 Tylenol - PO 650 mg Q6H PRN Administration FEVER Amlodipine Besylate 10 mg 09/01/19 10:00 09/10/19 11:21 Norvasc - PO 10 mg DAILY [facility] Administration Benzocaine/Menthol 1 each 09/04/19 15:59 09/06/19 22:34 Cepacol Lozenge - MM 1 each Q2H PRN Administration SORE THROAT Bisacodyl 10 mg 08/31/19 05:01 Dulcolax Suppository - RC PRN PRN CONSTIPATION Furosemide 100 mg 09/07/19 10:40 09/10/19 13:51 Lasix Injection - IVPUSH 100 mg BID@0600,1400 [facility] Administration Guaifenesin/Codeine Phosphate 10 ml 09/06/19 01:54 09/06/19 22:34 Robitussin Ac - PO 10 ml Q8H PRN Administration COUGH Heparin Sodium (Porcine) 5,000 unit 08/31/19 14:00 09/10/19 14:05 Heparin - SQ 5,000 unit TID [facility] Administration Milrinone Lactate/Dextrose 20,000 mcg in 100 mls @ 6.892 mls/hr 09/05/19 11: 30 09/10/19 12:56 Milrinone 20mg/100ml Ivpb - IVPB 0.25 mcg/kg/min TITR [facility] 6.892 mls/hr Administration 0.25 MCG/KG/MIN Insulin Aspart 1 vial 08/31/19 07:00 09/10/19 12:43 Novolog Vial Sliding Scale - SQ 4 units ACHS [facility] Administration Protocol Magnesium Oxide 400 mg 09/04/19 10:00 09/10/19 11:21 Mag-Ox - PO 400 mg BID [facility] Administration Metolazone 5 mg 09/10/19 05:30 09/10/19 06:24 Zaroxolyn - PO 5 mg DAILY@0530 [facility] Administration Metoprolol Succinate 50 mg 09/02/19 10:00 09/10/19 11:21 Toprol Xl - PO 50 mg BID [facility] Administration ASSESSMENT/PLAN: ATTENDING PHYSICIAN STATEMENT I saw and evaluated the patient. I reviewed the resident's note and discussed the case with the resident. I agree with the resident's findings and plan as documented. SUBJECTIVE:breathing is better today. continues to have productive cough of white sputum intermittently. is able to lay flat. denies Cp, fever, chills, N/V/ C/D OBJECTIVE: Intake & Output 09/07/19 09/08/19 09/09/19 09/10/19 23:59 23:59 23:59 23:59 Intake Total 452.8 467.6 55.2 273.6 Output Total 1500 3775 1570 2500 Balance -1047.2 -3307.4 -1514.8 -2226.4 Weight 217 lb 2 oz 214 lb 12.8 oz 212 lb 206 lb 9.6 oz Last Vital Signs Temp Pulse Resp BP Pulse Ox 97.9 F 66 19 148/79 95 09/10/19 14:10 09/10/19 14:10 09/10/19 14:10 09/10/19 14:10 09/10/19 09:00 General NAD CV S1 S2 no murmur Lungs decrease at bases extremities 1+ pitting edema B/L ASSESSMENT AND PLAN: 59yo M with PMH DM, CKD stage III, HTN, and systolic CHF presenting with acute systolic CHF 1. Acute systolic CHF- clinically improved. on milrinone ggt, lasix 100mg BID IV and metalozone. good diuresis from yesterday. patient is able to lay flat and speak in clear sentences. monitor electrolytes, daily weights. will need to be closely monitored by cardio for possible AICD placement if EF doesnt improve. cardio on board 2. Acute on CKD- due to pre-renal. now stable.will cont with aggressive diuresis. nephro following 3. hyponatremia- due to volume overload. slowly improving. cont to monitor 4. DVT ppx- hep sq rest of note per resident
[2019-09-11] MEDS ORDERED: PT OWN MED DRAWER 7, Y5N ONE (06:49)
[2019-09-11] MEDS: METOLAZONE 5 MG TABLET PO SCH (07:15)
[2019-09-11] MEDS: FUROSEMIDE 40 MG/4 ML INJECTABLE VIAL IVPUSH SCH ×2 (07:15→15:01)
[2019-09-11] MEDS: MILRINONE 20MG/100ML IVPB - 20,000 MCG/100 ML ML IVPB SCH ×2 (07:15→21:28)
[2019-09-11] MEDS: HEPARIN NA (PORCINE) 5,000 UNITS/ML 1ML VIAL SQ SCH ×3 (07:16→21:32)
[2019-09-11] MEDS: INSULIN SLIDING SCALE (NOVOLOG) 1 VIAL SQ SCH ×4 (07:16→21:35)
[2019-09-11 07:24] LABS: BASO % 1.2 % (0-2.0); EOS % 5.3 % (0-4.5); HEMATOCRIT 25.4 % (35.4-49); HEMOGLOBIN 8.4 GM/dL (11.7-16.9); LYMPH % 29.1 % (8-40); MCH 25.5 pg (25.7-33.7); MCHC 32.9 g/dl (32.0-35.9); MEAN CELL VOLUME 77.7 fl (80-96); MEAN PLT VOLUME 9.4 fl (7.5-11.1); MONO % 8.8 % (3.8-10.2); NEUT % 55.6 % (42.8-82.8); RBC 3.27 M/mm3 (4.00-5.60); RDW 14.4 % (11.9-15.9)
[2019-09-11 07:54] LABS: ALBUMIN 2.1 g/dl (3.4-5.0); BILIRUBIN,TOTAL 0.2 mg/dL (0.2-1); BLOOD UREA NITROGEN 83.4 mg/dL (7-18); CALCIUM 7.7 mg/dL (8.5-10.1); CREATININE 3.2 mg/dL (0.55-1.3); MAGNESIUM 2.7 mg/dL (1.8-2.4); PHOSPHOROUS 5.6 mg/dL (2.5-4.9); POTASSIUM 4.2 mmol/L (3.5-5.1); TOT PROT 5.8 g/dl (6.4-8.2)
[2019-09-11] MEDS: MAGNESIUM OXIDE 400 MG TABLET (FP) PO SCH (10:00)
[2019-09-11] MEDS: amLODIPine BESYLATE 10 MG TABLET (FP) PO SCH (10:00)
[2019-09-11 11:20] LABS: PLATELET COUNT 335 K/MM3 (134-434)
--- NOTE | 2019-09-11 11:33 | PN ---
Progress Note (short form) - Note Progress Note: s: no chest pain, palps, dizziness, sob Current Medications Acetaminophen (Tylenol -) 650 mg PO Q6H PRN PRN Reason: FEVER Last Admin: 09/03/19 15:25 Dose: 650 mg Amlodipine Besylate (Norvasc -) 10 mg PO DAILY [facility] Last Admin: 09/11/19 10:00 Dose: 10 mg Benzocaine/Menthol (Cepacol Lozenge -) 1 each MM Q2H PRN PRN Reason: SORE THROAT Last Admin: 09/06/19 22:34 Dose: 1 each Bisacodyl (Dulcolax Suppository -) 10 mg RC PRN PRN PRN Reason: CONSTIPATION Furosemide (Lasix Injection -) 100 mg IVPUSH BID@0600,1400 [facility] Last Admin: 09/11/19 07:15 Dose: 100 mg Guaifenesin/Codeine Phosphate (Robitussin Ac -) 10 ml PO Q8H PRN PRN Reason: COUGH Last Admin: 09/06/19 22:34 Dose: 10 ml Heparin Sodium (Porcine) (Heparin -) 5,000 unit SQ TID [facility] Last Admin: 09/11/19 07:16 Dose: 5,000 unit Milrinone Lactate/Dextrose (Milrinone 20mg/100ml Ivpb -) 20,000 mcg in 100 mls @ 6.892 mls/hr IVPB TITR [facility] Last Admin: 09/11/19 07:15 Dose: 0.25 mcg/kg/min, 6.892 mls/hr Insulin Aspart (Novolog Vial Sliding Scale -) 1 vial SQ ACHS [facility]; Protocol Last Admin: 09/11/19 07:16 Dose: Not Given Magnesium Oxide (Mag-Ox -) 400 mg PO BID [facility] Last Admin: 09/11/19 10:00 Dose: 400 mg Metolazone (Zaroxolyn -) 5 mg PO DAILY@0530 [facility] Last Admin: 09/11/19 07:15 Dose: 5 mg Metoprolol Succinate (Toprol Xl -) 50 mg PO BID [facility] Last Admin: 09/11/19 10:00 Dose: 50 mg Vital Signs Period Temp Pulse Resp BP Sys/Garner Pulse Ox Last 24 Hr 97.9 F-99.6 F 59-71 18-20 116-148/54-79 96-99 Constitutional: Yes: No Distress Neck: Yes: Supple Cardiovascular: Yes: Regular Rate and Rhythm, JVD Respiratory: Yes: CTA Bilaterally Gastrointestinal: Yes: Soft, Abdomen, Obese Edema: Yes Edema: LLE: 2+ (warm), RLE: 2+ (warm) Neurological: Yes: Alert, Oriented no jaundice, diaphoresis not agitated Assessment/Plan cath 02/2018 nonobstructive CAD, nl EF Echo 09/15: mild conc LVH; severe, global LV hypo/EF 30%. nl RV. mild-mod TR. RVSP 42. tele: SR 59M h/o DM, HTN, HLD, s/p L great toe amputation and partial 2nd toe amputation p/w toe ulcer and bilateral lower extremity swelling: Acute on chronic systolic HF exacerbation - BNP >19319 - echo here with severe decreased lvef, new since 2017 echo, likely NICM given recent unremarkable cath - lasix 40 iv bid here--held 09/04 given Creat up to 2.5--bun/creat up further wt down 222 to 202. - 09/05 milrinone started, no increase in UOP and Cr rising, now improving on higher doses of lasix - continue milrinone - Continue IV lasix with metolazone - monitor lytes, replete K/Mag to usual strict targets, daily weights - cont toprol (ok with milrinone) - consider outpt sleep study - defer RAAS blockers until renal fxn stabilizes s/p diuresis - will need EF surveillance after 3 mo optimized GDMT--rec ICD at that time if EF not improved JASWINDER/CKD: - Cr now improving - cont milrinone, lasix as above - Renal following HTN: - bp reasonable - cont bb - JORGE +/- spirono later, as above
--- NOTE | 2019-09-11 12:37 | PN ---
Progress Note (short form) - Note Progress Note: Resting in NAD. Breathing feels overall better. No acute events overnight. Intake & Output 09/08/19 09/09/19 09/10/19 09/11/19 23:59 23:59 23:59 23:59 Intake Total 467.6 55.2 273.6 82.8 Output Total 3775 1570 3300 1200 Balance -3307.4 -1514.8 -3026.4 -1117.2 Weight 214 lb 12.8 oz 212 lb 206 lb 9.6 oz 202 lb 6 oz Last Vital Signs Temp Pulse Resp BP Pulse Ox 99 F 71 18 116/54 L 99 09/11/19 10:00 09/11/19 10:00 09/11/19 10:00 09/11/19 10:00 09/11/19 09:00 Active Medications Acetaminophen (Tylenol -) 650 mg PO Q6H PRN PRN Reason: FEVER Last Admin: 09/03/19 15:25 Dose: 650 mg Amlodipine Besylate (Norvasc -) 10 mg PO DAILY [facility] Last Admin: 09/11/19 10:00 Dose: 10 mg Benzocaine/Menthol (Cepacol Lozenge -) 1 each MM Q2H PRN PRN Reason: SORE THROAT Last Admin: 09/06/19 22:34 Dose: 1 each Bisacodyl (Dulcolax Suppository -) 10 mg RC PRN PRN PRN Reason: CONSTIPATION Furosemide (Lasix Injection -) 100 mg IVPUSH BID@0600,1400 [facility] Last Admin: 09/11/19 07:15 Dose: 100 mg Guaifenesin/Codeine Phosphate (Robitussin Ac -) 10 ml PO Q8H PRN PRN Reason: COUGH Last Admin: 09/06/19 22:34 Dose: 10 ml Heparin Sodium (Porcine) (Heparin -) 5,000 unit SQ TID [facility] Last Admin: 09/11/19 07:16 Dose: 5,000 unit Milrinone Lactate/Dextrose (Milrinone 20mg/100ml Ivpb -) 20,000 mcg in 100 mls @ 6.892 mls/hr IVPB TITR [facility] Last Admin: 09/11/19 07:15 Dose: 0.25 mcg/kg/min, 6.892 mls/hr Insulin Aspart (Novolog Vial Sliding Scale -) 1 vial SQ ACHS [facility]; Protocol Last Admin: 09/11/19 12:20 Dose: 2 units Magnesium Oxide (Mag-Ox -) 400 mg PO BID [facility] Last Admin: 09/11/19 10:00 Dose: 400 mg Metolazone (Zaroxolyn -) 5 mg PO DAILY@0530 [facility] Last Admin: 09/11/19 07:15 Dose: 5 mg Metoprolol Succinate (Toprol Xl -) 50 mg PO BID [facility] Last Admin: 09/11/19 10:00 Dose: 50 mg Constitutional: Yes: NAD Eyes: Yes: WNL HENT: Yes: WNL Neck: Yes: WNL Cardiovascular: Yes: Regular Rate and Rhythm, S1, S2 Respiratory: Yes: Bibasilar rales Gastrointestinal: Yes: Normal Bowel Sounds, Soft Extremities: Yes: WNL Edema: Yes Labs: Laboratory Results - last 24 hr 09/10/19 09/10/19 09/10/19 12:41 17:36 20:39 WBC RBC Hgb Hct MCV MCH MCHC RDW Plt Count MPV Absolute Neuts (auto) Neutrophils % Lymphocytes % Monocytes % Eosinophils % Basophils % Nucleated RBC % Sodium Potassium Chloride Carbon Dioxide Anion Gap BUN Creatinine Est GFR (CKD-EPI)AfAm Est GFR (CKD-EPI)NonAf POC Glucometer 227 160 168 Random Glucose Calcium Phosphorus Magnesium Total Bilirubin AST ALT Alkaline Phosphatase Total Protein Albumin 09/11/19 09/11/19 09/11/19 05:35 05:35 06:09 WBC 6.0 RBC 3.27 L Hgb 8.4 L Hct 25.4 L MCV 77.7 L MCH 25.5 L MCHC 32.9 RDW 14.4 Plt Count 335 MPV 9.4 Absolute Neuts (auto) 3.3 Neutrophils % 55.6 Lymphocytes % 29.1 Monocytes % 8.8 Eosinophils % 5.3 H Basophils % 1.2 Nucleated RBC % 0 Sodium 132 L Potassium 4.2 Chloride 98 Carbon Dioxide 25 Anion Gap 9 BUN 83.4 H Creatinine 3.2 H Est GFR (CKD-EPI)AfAm 23.46 Est GFR (CKD-EPI)NonAf 20.24 POC Glucometer 138 Random Glucose 154 H Calcium 7.7 L Phosphorus 5.6 H Magnesium 2.7 H Total Bilirubin 0.2 AST 17 ALT 15 Alkaline Phosphatase 132 H Total Protein 5.8 L Albumin 2.1 L 09/11/19 11:38 WBC RBC Hgb Hct MCV MCH MCHC RDW Plt Count MPV Absolute Neuts (auto) Neutrophils % Lymphocytes % Monocytes % Eosinophils % Basophils % Nucleated RBC % Sodium Potassium Chloride Carbon Dioxide Anion Gap BUN Creatinine Est GFR (CKD-EPI)AfAm Est GFR (CKD-EPI)NonAf POC Glucometer 195 Random Glucose Calcium Phosphorus Magnesium Total Bilirubin AST ALT Alkaline Phosphatase Total Protein Albumin Problem List - Problems (1) Anasarca associated with disorder of kidney Code(s): N04.9 - NEPHROTIC SYNDROME WITH UNSPECIFIED MORPHOLOGIC CHANGES (2) CKD (chronic kidney disease) Code(s): N18.9 - CHRONIC KIDNEY DISEASE, UNSPECIFIED Qualifiers: Chronic kidney disease stage: unspecified stage Qualified Code(s): N18.9 - Chronic kidney disease, unspecified (3) Cough Code(s): R05 - COUGH (4) Edema Code(s): R60.9 - EDEMA, UNSPECIFIED Qualifiers: Edema type: generalized Qualified Code(s): R60.1 - Generalized edema (5) CHF (congestive heart failure) Code(s): I50.9 - HEART FAILURE, UNSPECIFIED Qualifiers: Heart failure type: unspecified Heart failure chronicity: chronic Qualified Code(s): I50.9 - Heart failure, unspecified (6) Anemia Code(s): D64.9 - ANEMIA, UNSPECIFIED (7) CAD (coronary artery disease) Code(s): I25.10 - ATHSCL HEART DISEASE OF [place] CORONARY ARTERY W/O ANG PCTRS (8) Diabetes Code(s): E11.9 - TYPE 2 DIABETES MELLITUS WITHOUT COMPLICATIONS (9) HLD (hyperlipidemia) Code(s): E78.5 - HYPERLIPIDEMIA, UNSPECIFIED (10) HTN (hypertension) Code(s): I10 - ESSENTIAL (PRIMARY) HYPERTENSION (11) Systolic and diastolic CHF w/reduced LV function, NYHA class 4 Code(s): I50.40 - UNSP COMBINED SYSTOLIC AND DIASTOLIC (CONGESTIVE) HRT FAIL Assessment/Plan IMP DYSPNEA/COUGH IMPROVING ACUTE ON CHRONIC SYSTOLIC/DIASTOLIC HF SEVERE LV SYSTOLIC DYSFUNCTION WITH SEVERE GLOBAL HYPOKINESIS ANASARCA ACUTE ON CHRONIC KIDNEY FAILURE PULMONARY HTN DM HLD H/O HEMOPTYSIS ANEMIA OSAS AHI 68 0N SLEEP SCREEN PLAN IV LASIX DAILY WTS O2 NEEDED MONITOR LYTES,RENAL FUNCTION MONITOR H+H FULL SLEEP STUDIES OUTPATIENT Dr Saxena
--- NOTE | 2019-09-11 14:21 | PN ---
Progress Note (short form) - Note Progress Note: RENAL Pt is awake and alert Last Vital Signs Temp Pulse Resp BP Pulse Ox 98.8 F 68 16 125/61 99 09/11/19 13:39 09/11/19 13:39 09/11/19 13:39 09/11/19 13:39 09/11/19 09:00 lungs decreased breath sounds cvs s1s2 rr abd soft ext +edema neuro a+ox3 CBC, BMP 09/11/19 05:35 09/11/19 05:35 Current Medications Generic Name Dose Route Start Last Admin Trade Name Freq PRN Reason Stop Dose Admin Acetaminophen 650 mg 09/03/19 15:18 09/03/19 15:25 Tylenol - PO 650 mg Q6H PRN Administration FEVER Amlodipine Besylate 10 mg 09/01/19 10:00 09/11/19 10:00 Norvasc - PO 10 mg DAILY [facility] Administration Benzocaine/Menthol 1 each 09/04/19 15:59 09/06/19 22:34 Cepacol Lozenge - MM 1 each Q2H PRN Administration SORE THROAT Bisacodyl 10 mg 08/31/19 05:01 Dulcolax Suppository - RC PRN PRN CONSTIPATION Furosemide 100 mg 09/07/19 10:40 09/11/19 07:15 Lasix Injection - IVPUSH 100 mg BID@0600,1400 [facility] Administration Guaifenesin/Codeine Phosphate 10 ml 09/06/19 01:54 09/06/19 22:34 Robitussin Ac - PO 10 ml Q8H PRN Administration COUGH Heparin Sodium (Porcine) 5,000 unit 08/31/19 14:00 09/11/19 07:16 Heparin - SQ 5,000 unit TID [facility] Administration Milrinone Lactate/Dextrose 20,000 mcg in 100 mls @ 6.892 mls/hr 09/05/19 11: 30 09/11/19 07:15 Milrinone 20mg/100ml Ivpb - IVPB 0.25 mcg/kg/min TITR [facility] 6.892 mls/hr Administration 0.25 MCG/KG/MIN Insulin Aspart 1 vial 08/31/19 07:00 09/11/19 12:20 Novolog Vial Sliding Scale - SQ 2 units ACHS [facility] Administration Protocol Magnesium Oxide 400 mg 09/04/19 10:00 09/11/19 10:00 Mag-Ox - PO 400 mg BID [facility] Administration Metolazone 5 mg 09/10/19 05:30 09/11/19 07:15 Zaroxolyn - PO 5 mg DAILY@0530 [facility] Administration Metoprolol Succinate 50 mg 09/02/19 10:00 09/11/19 10:00 Toprol Xl - PO 50 mg BID [facility] Administration IMPRESSION 59 year old gentleman with history of CKD stage 3, hypertension, DM type 2, BPH, hyperlipidemia who presented from home with shortness of breath, leg and arm swelling and admitted for diastolic HF. 1. Anasarca 2. Diastolic HF 3. CKD stage 3 4. Metabolic acidosis 5. Anemia 6. Proteinuria- nephrotic range continue diuresis despite creatinine if creatinine stabilizes would give acei particularly since he has nephrotic range proteinuria would need to consider biopsy though its likely to be diabetic nephropathy MV
[2019-09-11] MEDS ORDERED: BISACODYL 5 MG TABLET.DR (FP) PO ONE (19:11)
--- NOTE | 2019-09-11 19:16 | PN ---
Progress Note, Physician History of Present Illness: patient seen and examined at bedside. States his cough is better. Still dyspneic on exertion but improved. No BM for 3 days. Still on milinone gtt, IV lasix, metolazone. tolerating diet. Denies nausea vomiting fever chills chest pain or SOB at rest. Making food urine. Patient had magnesium oxide 400mg PO BID ordered standing and has been hypermagnesemic for past 2 days. got dose this AM. I discontinued it. - Current Medication List Current Medications: Active Medications Acetaminophen (Tylenol -) 650 mg PO Q6H PRN PRN Reason: FEVER Last Admin: 09/03/19 15:25 Dose: 650 mg Amlodipine Besylate (Norvasc -) 10 mg PO DAILY [facility] Last Admin: 09/11/19 10:00 Dose: 10 mg Benzocaine/Menthol (Cepacol Lozenge -) 1 each MM Q2H PRN PRN Reason: SORE THROAT Last Admin: 09/06/19 22:34 Dose: 1 each Bisacodyl (Dulcolax Suppository -) 10 mg RC PRN PRN PRN Reason: CONSTIPATION Furosemide (Lasix Injection -) 100 mg IVPUSH BID@0600,1400 [facility] Last Admin: 09/11/19 15:01 Dose: 100 mg Guaifenesin/Codeine Phosphate (Robitussin Ac -) 10 ml PO Q8H PRN PRN Reason: COUGH Last Admin: 09/06/19 22:34 Dose: 10 ml Heparin Sodium (Porcine) (Heparin -) 5,000 unit SQ TID [facility] Last Admin: 09/11/19 15:00 Dose: 5,000 unit Milrinone Lactate/Dextrose (Milrinone 20mg/100ml Ivpb -) 20,000 mcg in 100 mls @ 6.892 mls/hr IVPB TITR [facility] Last Admin: 09/11/19 07:15 Dose: 0.25 mcg/kg/min, 6.892 mls/hr Insulin Aspart (Novolog Vial Sliding Scale -) 1 vial SQ ACHS [facility]; Protocol Last Admin: 09/11/19 17:40 Dose: 2 units Metolazone (Zaroxolyn -) 5 mg PO DAILY@0530 [facility] Last Admin: 09/11/19 07:15 Dose: 5 mg Metoprolol Succinate (Toprol Xl -) 50 mg PO BID [facility] Last Admin: 09/11/19 10:00 Dose: 50 mg - Objective Vital Signs: Vital Signs Temperature 98.8 F 09/11/19 13:39 Pulse Rate 68 09/11/19 13:39 Respiratory Rate 16 09/11/19 13:39 Blood Pressure 125/61 09/11/19 13:39 O2 Sat by Pulse Oximetry (%) 99 09/11/19 09:00 Constitutional: Yes: No Distress, Calm Eyes: Yes: Conjunctiva Clear HENT: Yes: Atraumatic Neck: Yes: Supple Cardiovascular: Yes: Regular Rate and Rhythm Respiratory: Yes: Other (slight bibasilar crackles otherwise clear) Gastrointestinal: Yes: Soft, Hypoactive Bowel Sounds, Other (slight discomfort with palpation of abdomen. States from constipation.) Edema: Yes (bilaterally) Neurological: Yes: Alert, Oriented ...Motor Strength: WNL Psychiatric: Yes: Alert, Oriented Labs: CBC, BMP 09/11/19 05:35 09/11/19 05:35 - ....Imaging Other: Report Reviewed (echo report reviewed) Impression/Plan Impression/Plan: 59yo M with PMH DM, CKD stage III, HTN, and systolic CHF presenting with acute systolic CHF Acute systolic CHF continues to improve on milrinone ggt, lasix 100mg BID IV and metalozone. good diuresis today. monitor electrolytes, daily weights. I/O daily will need to be closely monitored by cardio for possible AICD placement if EF doesnt improve. cardiology consult noted and appreciated Acute on CKD -likely from Diabetes continue aggressive diuresis creatinine 3.2 today essentially unchanged from 3.3 yesterday renally dose all meds nephrotic range proteinuria-will benefit from JORGE-I once creatinine stabilizes HTN Continue metoprolol and norvasc JORGE-I once renal function stabilizes DM Controlled continue ISS CHeck HbA1C hyponatremia due to volume overload. trend sodium Hypermagnesemia: was on magnesium oxide standing 400mg po BID and hypermagnesemic for past 2 days and still on magnesium will discontinue it Constipation Will give dose of dulcolax 20mg po now DVT ppx- hep sq Patient known to me as he was one of my patient in the resident clinic. He always had a hard time with compliance due to affordability issues Visit type - Emergency Visit Emergency Visit: Yes ED Registration Date: 08/30/19 Care time: The patient presented to the Emergency Department on the above date and was hospitalized for further evaluation of their emergent condition. - New Patient This patient is new to me today: Yes Date on this admission: 09/11/19 - Critical Care Critical Care patient: No
[2019-09-12] MEDS: METOLAZONE 5 MG TABLET PO SCH (05:59)
[2019-09-12] MEDS: HEPARIN NA (PORCINE) 5,000 UNITS/ML 1ML VIAL SQ SCH ×3 (05:59→21:39)
[2019-09-12] MEDS: INSULIN SLIDING SCALE (NOVOLOG) 1 VIAL SQ SCH ×4 (05:59→21:46)
[2019-09-12] MEDS: FUROSEMIDE 40 MG/4 ML INJECTABLE VIAL IVPUSH SCH ×2 (06:28→14:15)
[2019-09-12 06:35] LABS: BASO % 0.5 % (0-2.0); EOS % 4.4 % (0-4.5); HEMATOCRIT 26.1 % (35.4-49); HEMOGLOBIN 8.5 GM/dL (11.7-16.9); LYMPH % 25.1 % (8-40); MCH 25.5 pg (25.7-33.7); MCHC 32.7 g/dl (32.0-35.9); MEAN CELL VOLUME 77.9 fl (80-96); MEAN PLT VOLUME 8.7 fl (7.5-11.1); MONO % 9.4 % (3.8-10.2); NEUT % 60.6 % (42.8-82.8); PLATELET COUNT 364 K/MM3 (134-434); RBC 3.35 M/mm3 (4.00-5.60); RDW 14.9 % (11.9-15.9); WHITE BLOOD COUNT 6.6 K/mm3 (4.0-10.0)
[2019-09-12 07:16] LABS: ALBUMIN 2.2 g/dl (3.4-5.0); BILIRUBIN,TOTAL 0.2 mg/dL (0.2-1); CALCIUM 7.9 mg/dL (8.5-10.1); CREATININE 3.2 mg/dL (0.55-1.3); MAGNESIUM 2.7 mg/dL (1.8-2.4); PHOSPHOROUS 5.7 mg/dL (2.5-4.9); POTASSIUM 4.3 mmol/L (3.5-5.1); TOT PROT 5.9 g/dl (6.4-8.2)
--- NOTE | 2019-09-12 07:29 | PN ---
Physical Exam: SUBJECTIVE: Patient seen and examined at bed side , No acute events over night breathing is better , swelling improving but still there +3 increased his lasix to 100 BID per nephrology urine out put about one 3L OBJECTIVE: Vital Signs Period Temp Pulse Resp BP Sys/Garner Pulse Ox Last 24 Hr 97.3 F-99 F 68-72 16-18 116-144/54-71 98-99 GENERAL: AAOx3 in NAD HEAD: NC/AT EYES: EOMI, Conjunctiva clear, sclera anicteric ENT: moist mucous membrane NECK: Supple, no JVD LUNGS: bibasilar crackles HEART: RRR, NSR, normal s1, s2, murmur no M/R/G ABDOMEN: Soft, ND, NT, +BS 4 Q, no CVA Tenderness LOWER EXTREMITIES: +2 edema, +2DP pulse, NEUROLOGICAL: No focal deficit. Normal speech. gait not observed. PSYCHIATRIC: Cooperative. Good eye contact. Appropriate mood and affect. SKIN: Warm, dry, Laboratory Results - last 24 hr 09/11/19 09/11/19 09/11/19 05:35 05:35 11:38 WBC 6.0 RBC 3.27 L Hgb 8.4 L Hct 25.4 L MCV 77.7 L MCH 25.5 L MCHC 32.9 RDW 14.4 Plt Count 335 MPV 9.4 Absolute Neuts (auto) 3.3 Neutrophils % 55.6 Lymphocytes % 29.1 Monocytes % 8.8 Eosinophils % 5.3 H Basophils % 1.2 Nucleated RBC % 0 Sodium 132 L Potassium 4.2 Chloride 98 Carbon Dioxide 25 Anion Gap 9 BUN 83.4 H Creatinine 3.2 H Est GFR (CKD-EPI)AfAm 23.46 Est GFR (CKD-EPI)NonAf 20.24 POC Glucometer 195 Random Glucose 154 H Hemoglobin A1c % Calcium 7.7 L Phosphorus 5.6 H Magnesium 2.7 H Total Bilirubin 0.2 AST 17 ALT 15 Alkaline Phosphatase 132 H Total Protein 5.8 L Albumin 2.1 L 09/11/19 09/11/19 09/12/19 17:38 21:34 05:15 WBC 6.6 RBC 3.35 L Hgb 8.5 L Hct 26.1 L MCV 77.9 L MCH 25.5 L MCHC 32.7 RDW 14.9 Plt Count 364 MPV 8.7 Absolute Neuts (auto) 4.0 Neutrophils % 60.6 Lymphocytes % 25.1 Monocytes % 9.4 Eosinophils % 4.4 Basophils % 0.5 Nucleated RBC % 0 Sodium Potassium Chloride Carbon Dioxide Anion Gap BUN Creatinine Est GFR (CKD-EPI)AfAm Est GFR (CKD-EPI)NonAf POC Glucometer 184 204 Random Glucose Hemoglobin A1c % Calcium Phosphorus Magnesium Total Bilirubin AST ALT Alkaline Phosphatase Total Protein Albumin 09/12/19 09/12/19 09/12/19 05:15 05:15 05:55 WBC RBC Hgb Hct MCV MCH MCHC RDW Plt Count MPV Absolute Neuts (auto) Neutrophils % Lymphocytes % Monocytes % Eosinophils % Basophils % Nucleated RBC % Sodium 132 L Potassium 4.3 Chloride 98 Carbon Dioxide 26 Anion Gap 8 BUN 78.0 H Creatinine 3.2 H Est GFR (CKD-EPI)AfAm 23.46 Est GFR (CKD-EPI)NonAf 20.24 POC Glucometer 136 Random Glucose 127 H Hemoglobin A1c % 7.3 H Calcium 7.9 L Phosphorus 5.7 H Magnesium 2.7 H Total Bilirubin 0.2 AST 22 ALT 19 Alkaline Phosphatase 128 H Total Protein 5.9 L Albumin 2.2 L Active Medications Generic Name Dose Route Start Last Admin Trade Name Freq PRN Reason Stop Dose Admin Acetaminophen 650 mg 09/03/19 15:18 09/03/19 15:25 Tylenol - PO 650 mg Q6H PRN Administration FEVER Amlodipine Besylate 10 mg 09/01/19 10:00 09/11/19 10:00 Norvasc - PO 10 mg DAILY [facility] Administration Benzocaine/Menthol 1 each 09/04/19 15:59 09/06/19 22:34 Cepacol Lozenge - MM 1 each Q2H PRN Administration SORE THROAT Bisacodyl 10 mg 08/31/19 05:01 Dulcolax Suppository - RC PRN PRN CONSTIPATION Furosemide 100 mg 09/07/19 10:40 09/12/19 06:28 Lasix Injection - IVPUSH 100 mg BID@0600,1400 [facility] Administration Guaifenesin/Codeine Phosphate 10 ml 09/06/19 01:54 09/06/19 22:34 Robitussin Ac - PO 10 ml Q8H PRN Administration COUGH Heparin Sodium (Porcine) 5,000 unit 08/31/19 14:00 09/12/19 05:59 Heparin - SQ 5,000 unit TID [facility] Administration Milrinone Lactate/Dextrose 20,000 mcg in 100 mls @ 6.892 mls/hr 09/05/19 11: 30 09/11/19 21:28 Milrinone 20mg/100ml Ivpb - IVPB 0.25 mcg/kg/min TITR [facility] 6.892 mls/hr Administration 0.25 MCG/KG/MIN Insulin Aspart 1 vial 08/31/19 07:00 09/12/19 05:59 Novolog Vial Sliding Scale - SQ Not Given ACHS [facility] Protocol Metolazone 5 mg 09/10/19 05:30 09/12/19 05:59 Zaroxolyn - PO 5 mg DAILY@0530 [facility] Administration Metoprolol Succinate 50 mg 09/02/19 10:00 09/11/19 21:32 Toprol Xl - PO 50 mg BID [facility] Administration CBC, BMP 09/12/19 05:15 09/12/19 05:15 ASSESSMENT/PLAN: This is a 59 year old man with a history of HTN, hyperlipidemia, CAD, chronic diastolic heart failure, type 2 DM, stage 3 CKD, BPH with bladder outlet obstruction, 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 #Acute on Systolic CHF exacerbation. # Anasacra * increase IV lasix 100 mg BID, add metolazone per nephrology * Monitor I&O, weight * echo with EF 30%, with severe LV global hypokinesis * cont melrinone per cardiology * FU CMP * FU cardio reccs * will need EF surveillance after 3 mo optimized GDMT--rec ICD at that time if EF not improved per cardiology * #Stage 3 CK * Creatinine 3.1 ...3.2 worsening . 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 * Previously diagnosed with iron deficiency * Hgb unchanged from 04/2019 * iron low irone and low ferritin * fobt negative * will need colonoscopy screening to R.o colon cancer as out pt #Hematuria, proteinuria * Renal US results noted * Nephrology consult * urine protein to creatinine normal * Check PK, Hepatitis, HIV, RPR * PK posiitve and DSDNA negative unlikely lupus #HTN * Continue Norvasc, Toprol XL, Lasix #Hyperlipidemia On no medication #CAD * Continue Toprol XL * Continue aspirin if no evidence of GI bleeding #Type 2 DM * Hold glipizide * Fingersticks with Novolog sliding scale * A1c 7.2 #BPH #Obesity with BMI 39.0, educated # KELLEN screening as out pt #FEN * fluid restriction * monitor * sodium , K controlled diet # dispo: monitor in tele Visit type - Emergency Visit Emergency Visit: Yes ED Registration Date: 08/30/19 Care time: The patient presented to the Emergency Department on the above date and was hospitalized for further evaluation of their emergent condition. - New Patient This patient is new to me today: No - Critical Care Critical Care patient: No ATTENDING PHYSICIAN STATEMENT I saw and evaluated the patient. I reviewed the resident's note and discussed the case with the resident. I agree with the resident's findings and plan as documented. SUBJECTIVE: OBJECTIVE: ASSESSMENT AND PLAN:
[2019-09-12] MEDS: amLODIPine BESYLATE 10 MG TABLET (FP) PO SCH (09:29)
--- NOTE | 2019-09-12 11:45 | PN ---
Progress Note (short form) - Note Progress Note: s: no chest pain, palps, dizziness, sob. edema improving. Current Medications Acetaminophen (Tylenol -) 650 mg PO Q6H PRN PRN Reason: FEVER Last Admin: 09/03/19 15:25 Dose: 650 mg Amlodipine Besylate (Norvasc -) 10 mg PO DAILY [facility] Last Admin: 09/12/19 09:29 Dose: 10 mg Benzocaine/Menthol (Cepacol Lozenge -) 1 each MM Q2H PRN PRN Reason: SORE THROAT Last Admin: 09/06/19 22:34 Dose: 1 each Bisacodyl (Dulcolax Suppository -) 10 mg RC PRN PRN PRN Reason: CONSTIPATION Furosemide (Lasix Injection -) 100 mg IVPUSH BID@0600,1400 [facility] Last Admin: 09/12/19 06:28 Dose: 100 mg Guaifenesin/Codeine Phosphate (Robitussin Ac -) 10 ml PO Q8H PRN PRN Reason: COUGH Last Admin: 09/06/19 22:34 Dose: 10 ml Heparin Sodium (Porcine) (Heparin -) 5,000 unit SQ TID [facility] Last Admin: 09/12/19 05:59 Dose: 5,000 unit Milrinone Lactate/Dextrose (Milrinone 20mg/100ml Ivpb -) 20,000 mcg in 100 mls @ 6.892 mls/hr IVPB TITR [facility] Last Admin: 09/11/19 21:28 Dose: 0.25 mcg/kg/min, 6.892 mls/hr Insulin Aspart (Novolog Vial Sliding Scale -) 1 vial SQ ACHS [facility]; Protocol Last Admin: 09/12/19 05:59 Dose: Not Given Metolazone (Zaroxolyn -) 5 mg PO DAILY@0530 [facility] Last Admin: 09/12/19 05:59 Dose: 5 mg Metoprolol Succinate (Toprol Xl -) 50 mg PO BID [facility] Last Admin: 09/12/19 09:29 Dose: 50 mg Vital Signs Period Temp Pulse Resp BP Sys/Garner Pulse Ox Last 24 Hr 97.3 F-98.8 F 68-72 16-20 121-144/56-71 98-99 Constitutional: Yes: No Distress Neck: Yes: Supple Cardiovascular: Yes: Regular Rate and Rhythm, JVD Respiratory: Yes: CTA Bilaterally Gastrointestinal: Yes: Soft, Abdomen, Obese Edema: Yes Edema: LLE: 2+ (warm), RLE: 2+ (warm) Neurological: Yes: Alert, Oriented no jaundice, diaphoresis not agitated Assessment/Plan cath 02/2018 nonobstructive CAD, nl EF Echo 09/15: mild conc LVH; severe, global LV hypo/EF 30%. nl RV. mild-mod TR. RVSP 42. tele: SR 59M h/o DM, HTN, HLD, s/p L great toe amputation and partial 2nd toe amputation p/w toe ulcer and bilateral lower extremity swelling: Acute on chronic systolic HF exacerbation - BNP >26416 - echo here with severe decreased lvef, new since 2018 echo, likely NICM given recent unremarkable cath - lasix 40 iv bid here--held 09/04 given Creat up to 2.5--bun/creat up further wt down 222 to 202. - 09/05 milrinone started, no increase in UOP and Cr rising, now improving on higher doses of lasix, still has edema and some dyspnea although improving - continue milrinone - Continue IV lasix with metolazone - check CXR - monitor lytes, replete K/Mag to usual strict targets, daily weights - cont toprol (ok with milrinone) - consider outpt sleep study - defer RAAS blockers until renal fxn stabilizes s/p diuresis - will need EF surveillance after 3 mo optimized GDMT--rec ICD at that time if EF not improved JASWINDER/CKD: - Cr now improving - cont milrinone, lasix as above - Renal following HTN: - bp reasonable - cont bb - JORGE +/- spirono later, as above
[2019-09-12] MEDS: MILRINONE 20MG/100ML IVPB - 20,000 MCG/100 ML ML IVPB SCH ×2 (11:48)
--- NOTE | 2019-09-12 12:24 | PN ---
Progress Note (short form) - Note Progress Note: PULMONARY APPEARS COMFORTABLE VSS/AFEBRILE HD UNDERWAY 2.5 KILOS PLANNED Constitutional: Yes: NAD Eyes: Yes: WNL HENT: Yes: WNL Neck: Yes: WNL Cardiovascular: Yes: Regular Rate and Rhythm, S1, S2 Respiratory: Yes: Bibasilar rales Gastrointestinal: Yes: Normal Bowel Sounds, Soft Extremities: Yes: WNL Edema: Yes Labs: NOTED Problem List - Problems (1) Anasarca associated with disorder of kidney Code(s): N04.9 - NEPHROTIC SYNDROME WITH UNSPECIFIED MORPHOLOGIC CHANGES (2) CKD (chronic kidney disease) Code(s): N18.9 - CHRONIC KIDNEY DISEASE, UNSPECIFIED Qualifiers: Chronic kidney disease stage: unspecified stage Qualified Code(s): N18.9 - Chronic kidney disease, unspecified (3) Cough Code(s): R05 - COUGH (4) Edema Code(s): R60.9 - EDEMA, UNSPECIFIED Qualifiers: Edema type: generalized Qualified Code(s): R60.1 - Generalized edema (5) CHF (congestive heart failure) Code(s): I50.9 - HEART FAILURE, UNSPECIFIED Qualifiers: Heart failure type: unspecified Heart failure chronicity: chronic Qualified Code(s): I50.9 - Heart failure, unspecified (6) Anemia Code(s): D64.9 - ANEMIA, UNSPECIFIED (7) CAD (coronary artery disease) Code(s): I25.10 - ATHSCL HEART DISEASE OF [place] CORONARY ARTERY W/O ANG PCTRS (8) Diabetes Code(s): E11.9 - TYPE 2 DIABETES MELLITUS WITHOUT COMPLICATIONS (9) HLD (hyperlipidemia) Code(s): E78.5 - HYPERLIPIDEMIA, UNSPECIFIED (10) HTN (hypertension) Code(s): I10 - ESSENTIAL (PRIMARY) HYPERTENSION (11) Systolic and diastolic CHF w/reduced LV function, NYHA class 4 Code(s): I50.40 - UNSP COMBINED SYSTOLIC AND DIASTOLIC (CONGESTIVE) HRT FAIL Assessment/Plan IMP DYSPNEA/COUGH IMPROVED ACUTE ON CHRONIC SYSTOLIC/DIASTOLIC HF SEVERE LV SYSTOLIC DYSFUNCTION WITH SEVERE GLOBAL HYPOKINESIS ANASARCA ACUTE ON CHRONIC KIDNEY FAILURE PULMONARY HTN DM HLD H/O HEMOPTYSIS ANEMIA OSAS AHI 68 0N SLEEP SCREEN PLAN IV LASIX DAILY WTS O2 NEEDED MONITOR LYTES,RENAL FUNCTION MONITOR H+H FULL SLEEP STUDIES OUTPATIENT Jean Claude LUEVANO MD
--- NOTE | 2019-09-12 13:46 | PN ---
Teaching Attending Note Name of Resident: Ariel Sun ATTENDING PHYSICIAN STATEMENT I saw and evaluated the patient. I reviewed the resident's note and discussed the case with the resident. I agree with the resident's findings and plan as documented. SUBJECTIVE: Patient seen and examined bedside. Feels better, breathing improved , LE edema improving. VSS, no fevers overnight. Objective: GENERAL: AAOx3 in NAD, Speaks Bur[place]ian, sitting up in bed HEAD: NC/AT EYES: EOMI, Conjunctiva clear, sclera anicteric ENT: moist mucous membrane NECK: Supple, no JVD LUNGS: good air entry b/l, slight crackle LLB, otherwise clear HEART: RRR, NSR, normal s1, s2, murmur no M/R/G ABDOMEN: Soft, ND, NT, +BS 4 Q, no CVA Tenderness, no abdominal wall edema LOWER EXTREMITIES: 2+ pitting edema, edema going down, dry extremities NEUROLOGICAL: No focal deficit. Normal speech. gait not observed. PSYCHIATRIC: Cooperative. Good eye contact. Appropriate mood and affect. SKIN: Warm, dry Vital Signs - 24 hr 09/11/19 09/11/19 09/11/19 18:00 21:00 22:00 Temperature 97.4 F L 97.9 F Pulse Rate 69 71 Respiratory 18 18 18 Rate Blood Pressure 121/56 L 125/58 L O2 Sat by Pulse 98 Oximetry (%) 09/12/19 09/12/19 09/12/19 01:41 06:00 09:00 Temperature 97.3 F L 98.3 F Pulse Rate 68 72 Respiratory 18 18 20 Rate Blood Pressure 144/71 128/66 O2 Sat by Pulse 99 Oximetry (%) 09/12/19 10:00 Temperature 97.8 F Pulse Rate 70 Respiratory 20 Rate Blood Pressure 124/68 O2 Sat by Pulse Oximetry (%) Microbiology 09/01/19 22:00 Urine - Urine Clean Catch Urine Culture - Final Group D Strep Or Entero Coccus Laboratory Results - last 24 hr 09/11/19 09/11/19 09/12/19 17:38 21:34 05:15 WBC 6.6 RBC 3.35 L Hgb 8.5 L Hct 26.1 L MCV 77.9 L MCH 25.5 L MCHC 32.7 RDW 14.9 Plt Count 364 MPV 8.7 Absolute Neuts (auto) 4.0 Neutrophils % 60.6 Lymphocytes % 25.1 Monocytes % 9.4 Eosinophils % 4.4 Basophils % 0.5 Nucleated RBC % 0 Sodium Potassium Chloride Carbon Dioxide Anion Gap BUN Creatinine Est GFR (CKD-EPI)AfAm Est GFR (CKD-EPI)NonAf POC Glucometer 184 204 Random Glucose Hemoglobin A1c % Calcium Phosphorus Magnesium Total Bilirubin AST ALT Alkaline Phosphatase Total Protein Albumin 09/12/19 09/12/19 09/12/19 05:15 05:15 05:55 WBC RBC Hgb Hct MCV MCH MCHC RDW Plt Count MPV Absolute Neuts (auto) Neutrophils % Lymphocytes % Monocytes % Eosinophils % Basophils % Nucleated RBC % Sodium 132 L Potassium 4.3 Chloride 98 Carbon Dioxide 26 Anion Gap 8 BUN 78.0 H Creatinine 3.2 H Est GFR (CKD-EPI)AfAm 23.46 Est GFR (CKD-EPI)NonAf 20.24 POC Glucometer 136 Random Glucose 127 H Hemoglobin A1c % 7.3 H Calcium 7.9 L Phosphorus 5.7 H Magnesium 2.7 H Total Bilirubin 0.2 AST 22 ALT 19 Alkaline Phosphatase 128 H Total Protein 5.9 L Albumin 2.2 L 09/12/19 11:32 WBC RBC Hgb Hct MCV MCH MCHC RDW Plt Count MPV Absolute Neuts (auto) Neutrophils % Lymphocytes % Monocytes % Eosinophils % Basophils % Nucleated RBC % Sodium Potassium Chloride Carbon Dioxide Anion Gap BUN Creatinine Est GFR (CKD-EPI)AfAm Est GFR (CKD-EPI)NonAf POC Glucometer 227 Random Glucose Hemoglobin A1c % Calcium Phosphorus Magnesium Total Bilirubin AST ALT Alkaline Phosphatase Total Protein Albumin Current Medications Generic Name Dose Route Start Last Admin Trade Name Freq PRN Reason Stop Dose Admin Acetaminophen 650 mg 09/03/19 15:18 09/03/19 15:25 Tylenol - PO 650 mg Q6H PRN Administration FEVER Amlodipine Besylate 10 mg 09/01/19 10:00 09/12/19 09:29 Norvasc - PO 10 mg DAILY [facility] Administration Benzocaine/Menthol 1 each 09/04/19 15:59 09/06/19 22:34 Cepacol Lozenge - MM 1 each Q2H PRN Administration SORE THROAT Bisacodyl 10 mg 08/31/19 05:01 Dulcolax Suppository - RC PRN PRN CONSTIPATION Furosemide 100 mg 09/07/19 10:40 09/12/19 06:28 Lasix Injection - IVPUSH 100 mg BID@0600,1400 [facility] Administration Guaifenesin/Codeine Phosphate 10 ml 09/06/19 01:54 09/06/19 22:34 Robitussin Ac - PO 10 ml Q8H PRN Administration COUGH Heparin Sodium (Porcine) 5,000 unit 08/31/19 14:00 09/12/19 05:59 Heparin - SQ 5,000 unit TID [facility]LE[facility]NIO Administration Milrinone Lactate/Dextrose 20,000 mcg in 100 mls @ 6.892 mls/hr 09/05/19 11: 30 09/12/19 11:48 Milrinone 20mg/100ml Ivpb - IVPB 0.25 mcg/kg/min TITR CELE[facility]INO 6.892 mls/hr Administration 0.25 MCG/KG/MIN Insulin Aspart 1 vial 08/31/19 07:00 09/12/19 11:49 Novolog Vial Sliding Scale - SQ 4 units ACHS CELE[facility]INO Administration Protocol Metolazone 5 mg 09/10/19 05:30 09/12/19 05:59 Zaroxolyn - PO 5 mg DAILY@0530 [facility] Administration Metoprolol Succinate 50 mg 09/02/19 10:00 09/12/19 09:29 Toprol Xl - PO 50 mg BID CELE[facility]INO Administration Polyethylene Glycol 17 gm 09/12/19 13:45 Miralax (For Daily Use) - PO DAILY [facility] 59 M h/o HTN, hyperlipidemia, CAD, HFrEF with acute exacerbation, type 2 DM, stage 3 CKD, BPH with bladder outlet obstruction, 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 Acute on chronic systolic HF with diffuse anasarca Cont. IV lasix 100 mg BID, cont. Milrinone drip as per cardiology Monitor I&O, weight checks daily, fluid restriction <1L/daily echo with EF 30%, with severe LV global hypokinesis will need EF surveillance after 3 mo optimized GDMT--rec ICD at that time if EF not improved per cardiology Cardiology consult: Dr Barrios CKD 3B Creatinine 3.2 may be new baseline, HD PRN Cont. to monitor CRE PK positive and DSDNA negative unlikely lupus will benifit from renal biopsy as outpatient no signs of uruemia , hyperkalemia or acidosis, no need for HD at this time Renal consult: Dr Rudolph Chronic anemia likely ACD Previously diagnosed with iron deficiency Hgb unchanged from 04/2019 iron studies normal fobt negative Hematuria Renal US results noted Nephrology consult urine protein to creatinine normal PK posiitve and DSDNA negative unlikely lupus BPH monitor urine output, if decreased get Bladder US to assess post-void residual HTN Continue Norvasc, Toprol XL, Lasix HLD restart statin CAD Continue Toprol XL Continue aspirin if no evidence of GI bleeding T2DM ISS, basal insulin PRN Cont. tele monitoring Heparin SC DVT ppx
[2019-09-12] MEDS: POLYETHYLENE GLYCOL 3350 119 GM BTL PO SCH (14:14)
--- NOTE | 2019-09-12 15:00 | PN ---
Progress Note, Physician History of Present Illness: Pt seen and examined at bedside. He is awake and alert. He says that he feels much better. - Current Medication List Current Medications: Active Medications Acetaminophen (Tylenol -) 650 mg PO Q6H PRN PRN Reason: FEVER Last Admin: 09/03/19 15:25 Dose: 650 mg Amlodipine Besylate (Norvasc -) 10 mg PO DAILY [facility] Last Admin: 09/12/19 09:29 Dose: 10 mg Benzocaine/Menthol (Cepacol Lozenge -) 1 each MM Q2H PRN PRN Reason: SORE THROAT Last Admin: 09/06/19 22:34 Dose: 1 each Bisacodyl (Dulcolax Suppository -) 10 mg RC PRN PRN PRN Reason: CONSTIPATION Furosemide (Lasix Injection -) 100 mg IVPUSH BID@0600,1400 [facility] Last Admin: 09/12/19 14:15 Dose: 100 mg Guaifenesin/Codeine Phosphate (Robitussin Ac -) 10 ml PO Q8H PRN PRN Reason: COUGH Last Admin: 09/06/19 22:34 Dose: 10 ml Heparin Sodium (Porcine) (Heparin -) 5,000 unit SQ TID [facility] Last Admin: 09/12/19 14:14 Dose: 5,000 unit Milrinone Lactate/Dextrose (Milrinone 20mg/100ml Ivpb -) 20,000 mcg in 100 mls @ 6.892 mls/hr IVPB TITR [facility] Last Admin: 09/12/19 11:48 Dose: 0.25 mcg/kg/min, 6.892 mls/hr Insulin Aspart (Novolog Vial Sliding Scale -) 1 vial SQ ACHS [facility]; Protocol Last Admin: 09/12/19 11:49 Dose: 4 units Metolazone (Zaroxolyn -) 5 mg PO DAILY@0530 [facility] Last Admin: 09/12/19 05:59 Dose: 5 mg Metoprolol Succinate (Toprol Xl -) 50 mg PO BID [facility] Last Admin: 09/12/19 09:29 Dose: 50 mg Polyethylene Glycol (Miralax (For Daily Use) -) 17 gm PO DAILY [facility] Last Admin: 09/12/19 14:14 Dose: 17 gm - Objective Vital Signs: Vital Signs Temperature 97.8 F 09/12/19 10:00 Pulse Rate 70 02/17/20 10:00 Respiratory Rate 20 09/12/19 10:00 Blood Pressure 124/68 09/12/19 10:00 O2 Sat by Pulse Oximetry (%) 99 09/12/19 09:00 Constitutional: Yes: Calm Eyes: Yes: Conjunctiva Clear HENT: Yes: Atraumatic Cardiovascular: Yes: S1, S2 Respiratory: Yes: CTA Bilaterally Gastrointestinal: Yes: Soft Genitourinary: Yes: WNL Musculoskeletal: Yes: WNL Edema: Yes Edema: LLE: 2+, RLE: 2+ Integumentary: Yes: Venous Stasis Changes Neurological: Yes: Oriented Psychiatric: Yes: Oriented Labs: CBC, BMP 09/12/19 05:15 09/12/19 05:15 Problem List - Problems (1) CKD (chronic kidney disease) Code(s): N18.9 - CHRONIC KIDNEY DISEASE, UNSPECIFIED Qualifiers: Chronic kidney disease stage: unspecified stage Qualified Code(s): N18.9 - Chronic kidney disease, unspecified (2) Edema Code(s): R60.9 - EDEMA, UNSPECIFIED Qualifiers: Edema type: generalized Qualified Code(s): R60.1 - Generalized edema (3) CHF (congestive heart failure) Code(s): I50.9 - HEART FAILURE, UNSPECIFIED Qualifiers: Heart failure type: unspecified Heart failure chronicity: chronic Qualified Code(s): I50.9 - Heart failure, unspecified Assessment/Plan Current Medications Generic Name Dose Route Start Last Admin Trade Name Freq PRN Reason Stop Dose Admin Acetaminophen 650 mg 09/03/19 15:18 09/03/19 15:25 Tylenol - PO 650 mg Q6H PRN Administration FEVER Amlodipine Besylate 10 mg 09/01/19 10:00 09/12/19 09:29 Norvasc - PO 10 mg DAILY [facility] Administration Benzocaine/Menthol 1 each 09/04/19 15:59 09/06/19 22:34 Cepacol Lozenge - MM 1 each Q2H PRN Administration SORE THROAT Bisacodyl 10 mg 08/31/19 05:01 Dulcolax Suppository - RC PRN PRN CONSTIPATION Furosemide 100 mg 09/07/19 10:40 09/12/19 14:15 Lasix Injection - IVPUSH 100 mg BID@0600,1400 [facility] Administration Guaifenesin/Codeine Phosphate 10 ml 09/06/19 01:54 09/06/19 22:34 Robitussin Ac - PO 10 ml Q8H PRN Administration COUGH Heparin Sodium (Porcine) 5,000 unit 08/31/19 14:00 09/12/19 14:14 Heparin - SQ 5,000 unit TID [facility]LE[facility] Administration Milrinone Lactate/Dextrose 20,000 mcg in 100 mls @ 6.892 mls/hr 09/05/19 11: 30 09/12/19 11:48 Milrinone 20mg/100ml Ivpb - IVPB 0.25 mcg/kg/min TITR [facility] 6.892 mls/hr Administration 0.25 MCG/KG/MIN Insulin Aspart 1 vial 08/31/19 07:00 09/12/19 11:49 Novolog Vial Sliding Scale - SQ 4 units ACHS CELE[facility]INO Administration Protocol Metolazone 5 mg 09/10/19 05:30 09/12/19 05:59 Zaroxolyn - PO 5 mg DAILY@0530 [facility] Administration Metoprolol Succinate 50 mg 09/02/19 10:00 09/12/19 09:29 Toprol Xl - PO 50 mg BID CELESTINO Administration Polyethylene Glycol 17 gm 09/12/19 13:45 09/12/19 14:14 Miralax (For Daily Use) - PO 17 gm DAILY [facility]LE[facility] Administration Laboratory Tests 09/02/19 09/02/19 05:30 19:30 MARGA M-Mo Not observed LORRAINE Screen Positive H c-ANCA <1:20 Proteinase 3 (PR3) <3.5 p-ANCA <1:20 Atypical p-ANCA <1:20 Myeloperoxidase Ab <9.0 Impression 1. Anasarca 2. Diastolic HF 3. CKD stage 3 4. Metabolic acidosis 5. Anemia 6. Proteinuria - nephrotic 7. 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
[2019-09-13] MEDS: MILRINONE 20MG/100ML IVPB - 20,000 MCG/100 ML ML IVPB SCH ×3 (03:37→17:54)
[2019-09-13] MEDS: guaiFENesin/CODEINE 5 ML UNIT-DOSE CUPS PO PRN (05:26)
[2019-09-13] MEDS: METOLAZONE 5 MG TABLET PO SCH (05:27)
[2019-09-13] MEDS: HEPARIN NA (PORCINE) 5,000 UNITS/ML 1ML VIAL SQ SCH ×3 (06:02→21:40)
[2019-09-13] MEDS: FUROSEMIDE 40 MG/4 ML INJECTABLE VIAL IVPUSH SCH ×2 (06:07→13:07)
[2019-09-13] MEDS: INSULIN SLIDING SCALE (NOVOLOG) 1 VIAL SQ SCH ×4 (06:08→21:40)
[2019-09-13 06:58] LABS: BASO % 0.7 % (0-2.0); EOS % 6.8 % (0-4.5); HEMATOCRIT 26.3 % (35.4-49); HEMOGLOBIN 8.6 GM/dL (11.7-16.9); LYMPH % 25.6 % (8-40); MCH 25.1 pg (25.7-33.7); MCHC 32.6 g/dl (32.0-35.9); MEAN CELL VOLUME 77.2 fl (80-96); MEAN PLT VOLUME 8.3 fl (7.5-11.1); MONO % 9.2 % (3.8-10.2); NEUT % 57.7 % (42.8-82.8); PLATELET COUNT 397 K/MM3 (134-434); RBC 3.41 M/mm3 (4.00-5.60); RDW 14.6 % (11.9-15.9)
[2019-09-13 07:20] LABS: ALBUMIN 2.3 g/dl (3.4-5.0); BILIRUBIN,TOTAL 0.2 mg/dL (0.2-1); BLOOD UREA NITROGEN 78.5 mg/dL (7-18); CALCIUM 8.2 mg/dL (8.5-10.1); POTASSIUM 4.4 mmol/L (3.5-5.1)
--- NOTE | 2019-09-13 07:22 | PN ---
Physical Exam: SUBJECTIVE: Patient seen and examined at bed side , No acute events over night breathing is better , LE edema trending down cont lasix to 100 BID per nephrology urine out put about one 1.5L OBJECTIVE: Vital Signs Period Temp Pulse Resp BP Sys/Garner Pulse Ox Last 24 Hr 97.3 F-98 F 68-74 20-20 124-148/68-76 97-99 GENERAL: AAOx3 in NAD HEAD: NC/AT EYES: EOMI, Conjunctiva clear, sclera anicteric ENT: moist mucous membrane NECK: Supple, no JVD LUNGS: bibasilar crackles HEART: RRR, NSR, normal s1, s2, murmur no M/R/G ABDOMEN: Soft, ND, NT, +BS 4 Q, no CVA Tenderness LOWER EXTREMITIES: +2 edema, +2DP pulse, NEUROLOGICAL: No focal deficit. Normal speech. gait not observed. PSYCHIATRIC: Cooperative. Good eye contact. Appropriate mood and affect. SKIN: Warm, dry, Laboratory Results - last 24 hr 09/12/19 09/12/19 09/12/19 11:32 16:51 21:44 WBC RBC Hgb Hct MCV MCH MCHC RDW Plt Count MPV Absolute Neuts (auto) Neutrophils % Lymphocytes % Monocytes % Eosinophils % Basophils % Nucleated RBC % Sodium Potassium Chloride Carbon Dioxide Anion Gap BUN Creatinine Est GFR (CKD-EPI)AfAm Est GFR (CKD-EPI)NonAf POC Glucometer 227 168 218 Random Glucose Calcium Total Bilirubin AST ALT Alkaline Phosphatase Total Protein Albumin 09/13/19 09/13/19 09/13/19 05:10 05:10 05:59 WBC 6.0 RBC 3.41 L Hgb 8.6 L Hct 26.3 L MCV 77.2 L MCH 25.1 L MCHC 32.6 RDW 14.6 Plt Count 397 MPV 8.3 Absolute Neuts (auto) 3.5 Neutrophils % 57.7 Lymphocytes % 25.6 Monocytes % 9.2 Eosinophils % 6.8 H Basophils % 0.7 Nucleated RBC % 0 Sodium 132 L Potassium 4.4 Chloride 98 Carbon Dioxide 26 Anion Gap 8 BUN 78.5 H Creatinine 3.0 H Est GFR (CKD-EPI)AfAm 25.36 Est GFR (CKD-EPI)NonAf 21.88 POC Glucometer 132 Random Glucose 117 H Calcium 8.2 L Total Bilirubin 0.2 AST 22 ALT 21 Alkaline Phosphatase 129 H Total Protein 6.0 L Albumin 2.3 L Active Medications Generic Name Dose Route Start Last Admin Trade Name Freq PRN Reason Stop Dose Admin Acetaminophen 650 mg 09/03/19 15:18 09/03/19 15:25 Tylenol - PO 650 mg Q6H PRN Administration FEVER Amlodipine Besylate 10 mg 09/01/19 10:00 09/12/19 09:29 Norvasc - PO 10 mg DAILY [facility] Administration Benzocaine/Menthol 1 each 09/04/19 15:59 09/06/19 22:34 Cepacol Lozenge - MM 1 each Q2H PRN Administration SORE THROAT Bisacodyl 10 mg 08/31/19 05:01 Dulcolax Suppository - RC PRN PRN CONSTIPATION Furosemide 100 mg 09/07/19 10:40 09/13/19 06:07 Lasix Injection - IVPUSH 100 mg BID@0600,1400 CE[facility] Administration Guaifenesin/Codeine Phosphate 10 ml 09/06/19 01:54 09/13/19 05:26 Robitussin Ac - PO 10 ml Q8H PRN Administration COUGH Heparin Sodium (Porcine) 5,000 unit 08/31/19 14:00 09/13/19 06:02 Heparin - SQ 5,000 unit TID CELESTINO Administration Milrinone Lactate/Dextrose 20,000 mcg in 100 mls @ 6.892 mls/hr 09/05/19 11: 30 09/13/19 03:37 Milrinone 20mg/100ml Ivpb - IVPB 0.25 mcg/kg/min TITR CELESTINO 6.9 mls/hr Administration 0.25 MCG/KG/MIN Insulin Aspart 1 vial 08/31/19 07:00 09/13/19 06:08 Novolog Vial Sliding Scale - SQ Not Given ACHS [facility] Protocol Metolazone 5 mg 09/10/19 05:30 09/13/19 05:27 Zaroxolyn - PO 5 mg DAILY@0530 CELE[facility]INO Administration Metoprolol Succinate 50 mg 09/02/19 10:00 09/12/19 21:41 Toprol Xl - PO 50 mg BID CELESTINO Administration Polyethylene Glycol 17 gm 09/12/19 13:45 09/12/19 14:14 Miralax (For Daily Use) - PO 17 gm DAILY [facility] Administration CBC, BMP 09/13/19 05:10 09/13/19 05:10 ASSESSMENT/PLAN: This is a 59 year old man with a history of HTN, hyperlipidemia, CAD, chronic diastolic heart failure, type 2 DM, stage 3 CKD, BPH with bladder outlet obstruction, 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 #Acute on Systolic CHF exacerbation. # Anasacra * increase IV lasix 100 mg BID, add metolazone per nephrology * Monitor I&O, weight * echo with EF 30%, with severe LV global hypokinesis * cont melrinone per cardiology * FU CMP * FU cardio reccs * will need EF surveillance after 3 mo optimized GDMT--rec ICD at that time if EF not improved per cardiology * #Stage 3 CKD * Creatinine 3.1 ...3.2...3.0 . 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 * Previously diagnosed with iron deficiency * Hgb unchanged from 04/2019 * iron low irone and low ferritin * fobt negative * will need colonoscopy screening to R.o colon cancer as out pt #Hematuria, proteinuria * Renal US results noted * Nephrology consult * urine protein to creatinine normal * Check PK, Hepatitis, HIV, RPR * PK posiitve and DSDNA negative unlikely lupus #HTN * Continue Norvasc, Toprol XL, Lasix #Hyperlipidemia On no medication #CAD * Continue Toprol XL * Continue aspirin if no evidence of GI bleeding #Type 2 DM * Hold glipizide * Fingersticks with Novolog sliding scale * A1c 7.2 #BPH #Obesity with BMI 39.0, educated # KELLEN screening as out pt #FEN * fluid restriction * monitor * sodium , K controlled diet # dispo: monitor in tele Visit type - Emergency Visit Emergency Visit: Yes ED Registration Date: 08/30/19 Care time: The patient presented to the Emergency Department on the above date and was hospitalized for further evaluation of their emergent condition. - New Patient This patient is new to me today: No - Critical Care Critical Care patient: No - Discharge Referral Referred to [facility] No ATTENDING PHYSICIAN STATEMENT I saw and evaluated the patient. I reviewed the resident's note and discussed the case with the resident. I agree with the resident's findings and plan as documented. SUBJECTIVE: OBJECTIVE: ASSESSMENT AND PLAN:
--- NOTE | 2019-09-13 08:48 | PN ---
Teaching Attending Note Name of Resident: Ariel Sun ATTENDING PHYSICIAN STATEMENT I saw and evaluated the patient. I reviewed the resident's note and discussed the case with the resident. I agree with the resident's findings and plan as documented. SUBJECTIVE: Patient feels improved OBJECTIVE: Vital Signs Temperature 97.7 F 09/13/19 05:33 Pulse Rate 73 09/13/19 05:33 Respiratory Rate 20 09/13/19 05:33 Blood Pressure 135/76 09/13/19 05:33 O2 Sat by Pulse Oximetry (%) 97 09/12/19 21:00 General: Middle-aged man, comfortable, not in distress HEENT; mucous membranes moist, no anemia, no jaundice, PERRLA, no nystagmus Neck: No JVD, supple, no bruit, thyroid palpably normal, normal carotid pulsations. Chest: Nontender, bilateral basal rales. CVS: S1-S2 regular no murmur/gallop/rub Abdomen: Nondistended, soft, bowel sounds present. 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 , no gross motor sensory deficit CBC, BMP 09/13/19 05:10 09/13/19 05:10 Active Medications Acetaminophen (Tylenol -) 650 mg PO Q6H PRN PRN Reason: FEVER Last Admin: 09/03/19 15:25 Dose: 650 mg Amlodipine Besylate (Norvasc -) 10 mg PO DAILY [facility] Last Admin: 09/12/19 09:29 Dose: 10 mg Benzocaine/Menthol (Cepacol Lozenge -) 1 each MM Q2H PRN PRN Reason: SORE THROAT Last Admin: 09/06/19 22:34 Dose: 1 each Bisacodyl (Dulcolax Suppository -) 10 mg RC PRN PRN PRN Reason: CONSTIPATION Furosemide (Lasix Injection -) 100 mg IVPUSH BID@0600,1400 [facility] Last Admin: 09/13/19 06:07 Dose: 100 mg Guaifenesin/Codeine Phosphate (Robitussin Ac -) 10 ml PO Q8H PRN PRN Reason: COUGH Last Admin: 09/13/19 05:26 Dose: 10 ml Heparin Sodium (Porcine) (Heparin -) 5,000 unit SQ TID [facility] Last Admin: 09/13/19 06:02 Dose: 5,000 unit Milrinone Lactate/Dextrose (Milrinone 20mg/100ml Ivpb -) 20,000 mcg in 100 mls @ 6.892 mls/hr IVPB TITR [facility] Last Admin: 09/13/19 03:37 Dose: 0.25 mcg/kg/min, 6.9 mls/hr Insulin Aspart (Novolog Vial Sliding Scale -) 1 vial SQ ACHS [facility]; Protocol Last Admin: 09/13/19 06:08 Dose: Not Given Metolazone (Zaroxolyn -) 5 mg PO DAILY@0530 [facility] Last Admin: 09/13/19 05:27 Dose: 5 mg Metoprolol Succinate (Toprol Xl -) 50 mg PO BID [facility] Last Admin: 09/12/19 21:41 Dose: 50 mg Polyethylene Glycol (Miralax (For Daily Use) -) 17 gm PO DAILY [facility] Last Admin: 09/12/19 14:14 Dose: 17 gm ASSESSMENT AND PLAN:59 year old man with a history of HTN, hyperlipidemia, CAD, CHF, type 2 DM, stage 3 CKD, BPH with bladder outlet obstruction, 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 With decompensated heart failure work-up shows worsening left ventricular ejection fraction Impression: Decompensated systolic heart failure Problem List - Problems (1) Heart failure, systolic, with acute decompensation Assessment/Plan: Improving on diuretics and milrinone drip, daily weight input output chart follow-up cardiology recommendations Problems reviewed: Yes Code(s): I50.23 - ACUTE ON CHRONIC SYSTOLIC (CONGESTIVE) HEART FAILURE (2) Acute on chronic kidney failure Assessment/Plan: Stable renal functions follow-up [facility] daily. Problems reviewed: Yes Code(s): N17.9 - ACUTE KIDNEY FAILURE, UNSPECIFIED; N18.9 - CHRONIC KIDNEY DISEASE, UNSPECIFIED (3) CAD (coronary artery disease) Assessment/Plan: Asymptomatic stable EKG and troponin I no acute issue Problems reviewed: Yes Code(s): I25.10 - ATHSCL HEART DISEASE OF [place] CORONARY ARTERY W/O ANG PCTRS (4) Diabetes Assessment/Plan: Type 2 diabetes mellitus optimize glycemic control Problems reviewed: Yes Code(s): E11.9 - TYPE 2 DIABETES MELLITUS WITHOUT COMPLICATIONS (5) HTN (hypertension) Assessment/Plan: Well-controlled continue all home medication Problems reviewed: Yes Code(s): I10 - ESSENTIAL (PRIMARY) HYPERTENSION (6) HLD (hyperlipidemia) Assessment/Plan: Continue statin Problems reviewed: Yes Code(s): E78.5 - HYPERLIPIDEMIA, UNSPECIFIED
[2019-09-13] MEDS: POLYETHYLENE GLYCOL 3350 119 GM BTL PO SCH (09:54)
[2019-09-13] MEDS: amLODIPine BESYLATE 10 MG TABLET (FP) PO SCH (10:00)
--- NOTE | 2019-09-13 11:09 | PN ---
Progress Note (short form) - Note Progress Note: s: edema improving. no chest pain, palps, dizziness, sob. Current Medications Acetaminophen (Tylenol -) 650 mg PO Q6H PRN PRN Reason: FEVER Last Admin: 09/03/19 15:25 Dose: 650 mg Amlodipine Besylate (Norvasc -) 10 mg PO DAILY [facility] Last Admin: 09/13/19 10:00 Dose: 10 mg Benzocaine/Menthol (Cepacol Lozenge -) 1 each MM Q2H PRN PRN Reason: SORE THROAT Last Admin: 09/06/19 22:34 Dose: 1 each Bisacodyl (Dulcolax Suppository -) 10 mg RC PRN PRN PRN Reason: CONSTIPATION Furosemide (Lasix Injection -) 100 mg IVPUSH BID@0600,1400 [facility] Last Admin: 09/13/19 06:07 Dose: 100 mg Guaifenesin/Codeine Phosphate (Robitussin Ac -) 10 ml PO Q8H PRN PRN Reason: COUGH Last Admin: 09/13/19 05:26 Dose: 10 ml Heparin Sodium (Porcine) (Heparin -) 5,000 unit SQ TID [facility] Last Admin: 09/13/19 06:02 Dose: 5,000 unit Milrinone Lactate/Dextrose (Milrinone 20mg/100ml Ivpb -) 20,000 mcg in 100 mls @ 6.892 mls/hr IVPB TITR [facility] Last Admin: 09/13/19 03:37 Dose: 0.25 mcg/kg/min, 6.9 mls/hr Insulin Aspart (Novolog Vial Sliding Scale -) 1 vial SQ ACHS [facility]; Protocol Last Admin: 09/13/19 11:00 Dose: 2 units Metolazone (Zaroxolyn -) 5 mg PO DAILY@0530 [facility] Last Admin: 09/13/19 05:27 Dose: 5 mg Metoprolol Succinate (Toprol Xl -) 50 mg PO BID [facility] Last Admin: 09/13/19 10:00 Dose: 50 mg Polyethylene Glycol (Miralax (For Daily Use) -) 17 gm PO DAILY [facility] Last Admin: 09/13/19 09:54 Dose: 17 gm Vital Signs Period Temp Pulse Resp BP Sys/Garner Pulse Ox Last 24 Hr 97.3 F-98 F 68-74 20-20 124-148/66-76 97-98 Constitutional: Yes: No Distress Neck: Yes: Supple Cardiovascular: Yes: Regular Rate and Rhythm, JVD Respiratory: Yes: CTA Bilaterally Gastrointestinal: Yes: Soft, Abdomen, Obese Edema: Yes Edema: LLE: 2+ (warm), RLE: 2+ (warm) Neurological: Yes: Alert, Oriented no jaundice, diaphoresis not agitated Assessment/Plan cath 02/2018 nonobstructive CAD, nl EF Echo 09/15: mild conc LVH; severe, global LV hypo/EF 30%. nl RV. mild-mod TR. RVSP 42. tele: SR 59M h/o DM, HTN, HLD, s/p L great toe amputation and partial 2nd toe amputation p/w toe ulcer and bilateral lower extremity swelling: Acute on chronic systolic HF exacerbation - BNP >82874 - echo here with severe decreased lvef, new since 2017 echo, likely NICM given recent unremarkable cath - lasix 40 iv bid here--held 09/04 given Creat up to 2.5--bun/creat up further - 09/05 milrinone started, no increase in UOP and Cr rising, now improving on higher doses of lasix, edema and dyspnea improving - wt down to 196 lbs - continue milrinone - Continue IV lasix with metolazone - check CXR - monitor lytes, replete K/Mag to usual strict targets, daily weights - cont toprol (ok with milrinone) - consider outpt sleep study - defer RAAS blockers until renal fxn stabilizes s/p diuresis - will need EF surveillance after 3 mo optimized GDMT--rec ICD at that time if EF not improved JASWINDER/CKD: - Cr now improving - cont milrinone, lasix as above - Renal following HTN: - bp reasonable - cont bb - JORGE +/- spirono later, as above
--- NOTE | 2019-09-13 11:49 | PN ---
Progress Note, Physician History of Present Illness: PULMONARY ALERT,COMFORTABLE,BREATHING BETTER,LESS COUGH - Current Medication List Current Medications: Active Medications Acetaminophen (Tylenol -) 650 mg PO Q6H PRN PRN Reason: FEVER Last Admin: 09/03/19 15:25 Dose: 650 mg Amlodipine Besylate (Norvasc -) 10 mg PO DAILY [facility] Last Admin: 09/13/19 10:00 Dose: 10 mg Benzocaine/Menthol (Cepacol Lozenge -) 1 each MM Q2H PRN PRN Reason: SORE THROAT Last Admin: 09/06/19 22:34 Dose: 1 each Bisacodyl (Dulcolax Suppository -) 10 mg RC PRN PRN PRN Reason: CONSTIPATION Furosemide (Lasix Injection -) 100 mg IVPUSH BID@0600,1400 [facility] Last Admin: 09/13/19 06:07 Dose: 100 mg Guaifenesin/Codeine Phosphate (Robitussin Ac -) 10 ml PO Q8H PRN PRN Reason: COUGH Last Admin: 09/13/19 05:26 Dose: 10 ml Heparin Sodium (Porcine) (Heparin -) 5,000 unit SQ TID [facility] Last Admin: 09/13/19 06:02 Dose: 5,000 unit Milrinone Lactate/Dextrose (Milrinone 20mg/100ml Ivpb -) 20,000 mcg in 100 mls @ 6.892 mls/hr IVPB TITR [facility] Last Admin: 09/13/19 11:13 Dose: Not Given Insulin Aspart (Novolog Vial Sliding Scale -) 1 vial SQ ACHS [facility]; Protocol Last Admin: 09/13/19 11:00 Dose: 2 units Metolazone (Zaroxolyn -) 5 mg PO DAILY@0530 [facility] Last Admin: 09/13/19 05:27 Dose: 5 mg Metoprolol Succinate (Toprol Xl -) 50 mg PO BID [facility] Last Admin: 09/13/19 10:00 Dose: 50 mg Polyethylene Glycol (Miralax (For Daily Use) -) 17 gm PO DAILY [facility] Last Admin: 09/13/19 09:54 Dose: 17 gm - Objective Vital Signs: Vital Signs Temperature 97.5 F L 09/13/19 10:00 Pulse Rate 70 09/13/19 10:00 Respiratory Rate 20 09/13/19 10:00 Blood Pressure 131/66 09/13/19 10:00 O2 Sat by Pulse Oximetry (%) 98 09/13/19 09:00 Constitutional: Yes: Well Nourished, Calm Eyes: Yes: WNL HENT: Yes: WNL Neck: Yes: WNL Cardiovascular: Yes: Regular Rate and Rhythm, S1, S2 Respiratory: Yes: Wheezes (BIBASIALR CRACKLES) Gastrointestinal: Yes: Normal Bowel Sounds, Soft Extremities: Yes: WNL Edema: Yes Labs: CBC, BMP 09/13/19 05:10 09/13/19 05:10 Problem List - Problems (1) Anasarca associated with disorder of kidney Code(s): N04.9 - NEPHROTIC SYNDROME WITH UNSPECIFIED MORPHOLOGIC CHANGES (2) CKD (chronic kidney disease) Code(s): N18.9 - CHRONIC KIDNEY DISEASE, UNSPECIFIED Qualifiers: Chronic kidney disease stage: unspecified stage Qualified Code(s): N18.9 - Chronic kidney disease, unspecified (3) Cough Code(s): R05 - COUGH (4) Edema Code(s): R60.9 - EDEMA, UNSPECIFIED Qualifiers: Edema type: generalized Qualified Code(s): R60.1 - Generalized edema (5) CHF (congestive heart failure) Code(s): I50.9 - HEART FAILURE, UNSPECIFIED Qualifiers: Heart failure type: unspecified Heart failure chronicity: chronic Qualified Code(s): I50.9 - Heart failure, unspecified (6) Anemia Code(s): D64.9 - ANEMIA, UNSPECIFIED (7) CAD (coronary artery disease) Code(s): I25.10 - ATHSCL HEART DISEASE OF [place] CORONARY ARTERY W/O ANG PCTRS (8) Diabetes Code(s): E11.9 - TYPE 2 DIABETES MELLITUS WITHOUT COMPLICATIONS (9) HLD (hyperlipidemia) Code(s): E78.5 - HYPERLIPIDEMIA, UNSPECIFIED (10) HTN (hypertension) Code(s): I10 - ESSENTIAL (PRIMARY) HYPERTENSION (11) Systolic and diastolic CHF w/reduced LV function, NYHA class 4 Code(s): I50.40 - UNSP COMBINED SYSTOLIC AND DIASTOLIC (CONGESTIVE) HRT FAIL Assessment/Plan IMP DYSPNEA/COUGH IMPROVING ACUTE ON CHRONIC SYSTOLIC/DIASTOLIC HF SEVERE LV SYSTOLIC DYSFUNCTION WITH SEVERE GLOBAL HYPOKINESIS ANASARCA ACUTE ON CHRONIC KIDNEY FAILURE PULMONARY HTN DM HLD H/O HEMOPTYSIS ANEMIA OSAS AHI 68 0N SLEEP SCREEN PLAN IV LASIX DAILY WTS O2 NEEDED F/U CHEST X-RAYS MONITOR LYTES,RENAL FUNCTION MONITOR H+H FULL SLEEP STUDIES OUTPATIENT DR RUST Problem List - Problems (1) Anasarca associated with disorder of kidney Code(s): N04.9 - NEPHROTIC SYNDROME WITH UNSPECIFIED MORPHOLOGIC CHANGES (2) CKD (chronic kidney disease) Code(s): N18.9 - CHRONIC KIDNEY DISEASE, UNSPECIFIED Qualifiers: Chronic kidney disease stage: unspecified stage Qualified Code(s): N18.9 - Chronic kidney disease, unspecified (3) Cough Code(s): R05 - COUGH (4) Edema Code(s): R60.9 - EDEMA, UNSPECIFIED Qualifiers: Edema type: generalized Qualified Code(s): R60.1 - Generalized edema (5) CHF (congestive heart failure) Code(s): I50.9 - HEART FAILURE, UNSPECIFIED Qualifiers: Heart failure type: unspecified Heart failure chronicity: chronic Qualified Code(s): I50.9 - Heart failure, unspecified (6) Anemia Code(s): D64.9 - ANEMIA, UNSPECIFIED (7) CAD (coronary artery disease) Code(s): I25.10 - ATHSCL HEART DISEASE OF [place] CORONARY ARTERY W/O ANG PCTRS (8) Diabetes Code(s): E11.9 - TYPE 2 DIABETES MELLITUS WITHOUT COMPLICATIONS (9) HLD (hyperlipidemia) Code(s): E78.5 - HYPERLIPIDEMIA, UNSPECIFIED (10) HTN (hypertension) Code(s): I10 - ESSENTIAL (PRIMARY) HYPERTENSION (11) Systolic and diastolic CHF w/reduced LV function, NYHA class 4 Code(s): I50.40 - UNSP COMBINED SYSTOLIC AND DIASTOLIC (CONGESTIVE) HRT FAIL
--- NOTE | 2019-09-13 13:29 | PN ---
Progress Note, Physician Chief Complaint: The patient seen and examined in her room. Seems comfortable. Still with significant edema. Maintains good urine output. On Milrinone, Lasix and Metolazone. History of Present Illness: 59 year old gentleman with history of CKD stage 3, hypertension, DM type 2, BPH, hyperlipidemia who presented from home with shortness of breath, leg and arm swelling and admitted for diastolic HF. 1. Anasarca 2. Diastolic HF 3. CKD stage 3 4. Metabolic acidosis 5. Anemia 6. Proteinuria - Current Medication List Current Medications: Active Medications Acetaminophen (Tylenol -) 650 mg PO Q6H PRN PRN Reason: FEVER Last Admin: 09/03/19 15:25 Dose: 650 mg Amlodipine Besylate (Norvasc -) 10 mg PO DAILY [facility] Last Admin: 09/13/19 10:00 Dose: 10 mg Benzocaine/Menthol (Cepacol Lozenge -) 1 each MM Q2H PRN PRN Reason: SORE THROAT Last Admin: 09/06/19 22:34 Dose: 1 each Bisacodyl (Dulcolax Suppository -) 10 mg RC PRN PRN PRN Reason: CONSTIPATION Furosemide (Lasix Injection -) 100 mg IVPUSH BID@0600,1400 [facility] Last Admin: 09/13/19 06:07 Dose: 100 mg Guaifenesin/Codeine Phosphate (Robitussin Ac -) 10 ml PO Q8H PRN PRN Reason: COUGH Last Admin: 09/13/19 05:26 Dose: 10 ml Heparin Sodium (Porcine) (Heparin -) 5,000 unit SQ TID [facility] Last Admin: 09/13/19 06:02 Dose: 5,000 unit Milrinone Lactate/Dextrose (Milrinone 20mg/100ml Ivpb -) 20,000 mcg in 100 mls @ 6.892 mls/hr IVPB TITR [facility] Last Admin: 09/13/19 11:13 Dose: Not Given Insulin Aspart (Novolog Vial Sliding Scale -) 1 vial SQ ACHS [facility]; Protocol Last Admin: 09/13/19 11:00 Dose: 2 units Metolazone (Zaroxolyn -) 5 mg PO DAILY@0530 [facility] Last Admin: 09/13/19 05:27 Dose: 5 mg Metoprolol Succinate (Toprol Xl -) 50 mg PO BID [facility] Last Admin: 09/13/19 10:00 Dose: 50 mg Polyethylene Glycol (Miralax (For Daily Use) -) 17 gm PO DAILY [facility] Last Admin: 09/13/19 09:54 Dose: 17 gm - Objective Vital Signs: Vital Signs Temperature 97.5 F L 09/13/19 10:00 Pulse Rate 70 09/13/19 10:00 Respiratory Rate 20 09/13/19 10:00 Blood Pressure 131/66 09/13/19 10:00 O2 Sat by Pulse Oximetry (%) 98 09/13/19 09:00 Constitutional: Yes: No Distress, Anxious Eyes: Yes: Conjunctiva Clear HENT: Yes: Normocephalic Neck: Yes: Trachea Midline Cardiovascular: Yes: Regular Rate and Rhythm, S1, S2 Respiratory: Yes: Diminished, Poor Air Entry, Rales, Rhonchi Gastrointestinal: Yes: Normal Bowel Sounds Musculoskeletal: Yes: Back Pain Edema: Yes Edema: LLE: 2+, RLE: 2+ Neurological: Yes: Alert, Oriented Labs: CBC, BMP 09/13/19 05:10 09/13/19 05:10 Problem List - Problems (1) Acute on chronic kidney failure Code(s): N17.9 - ACUTE KIDNEY FAILURE, UNSPECIFIED; N18.9 - CHRONIC KIDNEY DISEASE, UNSPECIFIED (2) CKD (chronic kidney disease) Code(s): N18.9 - CHRONIC KIDNEY DISEASE, UNSPECIFIED Qualifiers: Chronic kidney disease stage: unspecified stage Qualified Code(s): N18.9 - Chronic kidney disease, unspecified (3) Edema Code(s): R60.9 - EDEMA, UNSPECIFIED Qualifiers: Edema type: generalized Qualified Code(s): R60.1 - Generalized edema (4) Heart failure, systolic, with acute decompensation Code(s): I50.23 - ACUTE ON CHRONIC SYSTOLIC (CONGESTIVE) HEART FAILURE (5) Anemia Code(s): D64.9 - ANEMIA, UNSPECIFIED (6) CAD (coronary artery disease) Code(s): I25.10 - ATHSCL HEART DISEASE OF [place] CORONARY ARTERY W/O ANG PCTRS (7) Diabetes Code(s): E11.9 - TYPE 2 DIABETES MELLITUS WITHOUT COMPLICATIONS (8) Diabetic retinopathy associated with controlled type 2 diabetes mellitus Code(s): E11.319 - TYPE 2 DIABETES W UNSP DIABETIC RTNOP W/O MACULAR EDEMA (9) HTN (hypertension) Code(s): I10 - ESSENTIAL (PRIMARY) HYPERTENSION (10) Amputated toe of left foot Code(s): Z89.422 - ACQUIRED ABSENCE OF OTHER LEFT TOE(S) (11) Enlarged prostate Code(s): N40.0 - BENIGN PROSTATIC HYPERPLASIA WITHOUT LOWER URINRY TRACT SYMP Assessment/Plan 59 year old gentleman with history of CKD stage 3, hypertension, DM type 2, BPH, hyperlipidemia who presented from home with shortness of breath, leg and arm swelling and admitted for diastolic HF. 1. Anasarca 2. Diastolic HF 3. CKD stage 3 4. Metabolic acidosis 5. Anemia 6. Proteinuria The patient is tolerating the current regimen of Milrinone, Lasix and Metolazone. Azotemia slowly improving. Will continue the current regimen. Monitor the renal/ electrolyte profile closely. Margarita Culver MD
[2019-09-13] MEDS ORDERED: PT OWN MED DRAWER 7, Y5N ONE (21:29)
[2019-09-14 06:30] LABS: ALBUMIN 2.4 g/dl (3.4-5.0); BILIRUBIN,TOTAL 0.2 mg/dL (0.2-1); CALCIUM 8.2 mg/dL (8.5-10.1); POTASSIUM 4.3 mmol/L (3.5-5.1); TOT PROT 6.1 g/dl (6.4-8.2)
[2019-09-14] MEDS: FUROSEMIDE 40 MG/4 ML INJECTABLE VIAL IVPUSH SCH ×3 (07:03→13:48)
[2019-09-14] MEDS: HEPARIN NA (PORCINE) 5,000 UNITS/ML 1ML VIAL SQ SCH ×3 (07:06→22:11)
[2019-09-14] MEDS: INSULIN SLIDING SCALE (NOVOLOG) 1 VIAL SQ SCH ×4 (07:08→22:11)
[2019-09-14] MEDS: METOLAZONE 5 MG TABLET PO SCH (07:09)
--- NOTE | 2019-09-14 07:27 | PN ---
Physical Exam: SUBJECTIVE: Patient seen and examined at bed side , No acute events over night breathing is better , LE edema trending down cont lasix to 100 BID per nephrology good urine out put taper milrinon per cardiology OBJECTIVE: Vital Signs Period Temp Pulse Resp BP Sys/Garner Pulse Ox Last 24 Hr 97.5 F-98.1 F 68-72 20-20 120-144/62-73 97-98 GENERAL: AAOx3 in NAD HEAD: NC/AT EYES: EOMI, Conjunctiva clear, sclera anicteric ENT: moist mucous membrane NECK: Supple, no JVD LUNGS: fine crackles at right base HEART: RRR, NSR, normal s1, s2, murmur no M/R/G ABDOMEN: Soft, ND, NT, +BS 4 Q, no CVA Tenderness LOWER EXTREMITIES: +2 edema, +2DP pulse, NEUROLOGICAL: No focal deficit. Normal speech. gait not observed. PSYCHIATRIC: Cooperative. Good eye contact. Appropriate mood and affect. SKIN: Warm, dry, Laboratory Results - last 24 hr 09/13/19 09/13/19 09/13/19 10:56 16:06 21:39 Sodium Potassium Chloride Carbon Dioxide Anion Gap BUN Creatinine Est GFR (CKD-EPI)AfAm Est GFR (CKD-EPI)NonAf POC Glucometer 181 200 202 Random Glucose Calcium Total Bilirubin AST ALT Alkaline Phosphatase Total Protein Albumin 09/14/19 09/14/19 05:05 06:23 Sodium 132 L Potassium 4.3 Chloride 96 L Carbon Dioxide 27 Anion Gap 9 BUN 76.0 H Creatinine 3.0 H Est GFR (CKD-EPI)AfAm 25.36 Est GFR (CKD-EPI)NonAf 21.88 POC Glucometer 113 Random Glucose 126 H Calcium 8.2 L Total Bilirubin 0.2 AST 19 ALT 21 Alkaline Phosphatase 121 H Total Protein 6.1 L Albumin 2.4 L Active Medications Generic Name Dose Route Start Last Admin Trade Name Freq PRN Reason Stop Dose Admin Acetaminophen 650 mg 09/03/19 15:18 09/03/19 15:25 Tylenol - PO 650 mg Q6H PRN Administration FEVER Amlodipine Besylate 10 mg 09/01/19 10:00 09/13/19 10:00 Norvasc - PO 10 mg DAILY [facility] Administration Benzocaine/Menthol 1 each 09/04/19 15:59 09/06/19 22:34 Cepacol Lozenge - MM 1 each Q2H PRN Administration SORE THROAT Bisacodyl 10 mg 08/31/19 05:01 Dulcolax Suppository - RC PRN PRN CONSTIPATION Furosemide 100 mg 09/07/19 10:40 09/13/19 13:07 Lasix Injection - IVPUSH 100 mg BID@0600,1400 [facility] Administration Guaifenesin/Codeine Phosphate 10 ml 09/06/19 01:54 09/13/19 05:26 Robitussin Ac - PO 10 ml Q8H PRN Administration COUGH Heparin Sodium (Porcine) 5,000 unit 08/31/19 14:00 09/14/19 07:06 Heparin - SQ 5,000 unit TID [facility] Administration Milrinone Lactate/Dextrose 20,000 mcg in 100 mls @ 6.892 mls/hr 09/05/19 11: 30 09/13/19 17:54 Milrinone 20mg/100ml Ivpb - IVPB 0.25 mcg/kg/min TITR [facility] 6.9 mls/hr Administration 0.25 MCG/KG/MIN Insulin Aspart 1 vial 08/31/19 07:00 09/14/19 07:08 Novolog Vial Sliding Scale - SQ Not Given ACHS [facility] Protocol Metolazone 5 mg 09/10/19 05:30 09/14/19 07:09 Zaroxolyn - PO 5 mg DAILY@0530 [facility] Administration Metoprolol Succinate 50 mg 09/02/19 10:00 09/13/19 21:40 Toprol Xl - PO 50 mg BID [facility] Administration Polyethylene Glycol 17 gm 09/12/19 13:45 09/13/19 09:54 Miralax (For Daily Use) - PO 17 gm DAILY [facility] Administration CBC, BMP 09/14/19 05:05 09/14/19 05:05 ASSESSMENT/PLAN: This is a 59 year old man with a history of HTN, hyperlipidemia, CAD, chronic diastolic heart failure, type 2 DM, stage 3 CKD, BPH with bladder outlet obstruction, 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 #Acute on Systolic CHF exacerbation. # Anasacra * increase IV lasix 100 mg BID, add metolazone per nephrology * Monitor I&O, weight * echo with EF 30%, with severe LV global hypokinesis * taper melrinone per cardiology * FU CMP * FU cardio reccs * will need EF surveillance after 3 mo optimized GDMT--rec ICD at that time if EF not improved per cardiology * #Stage 3 CKD * Creatinine 3.1 ...3.2...3.0 . 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 * Previously diagnosed with iron deficiency * Hgb unchanged from 04/2019 * iron low irone and low ferritin * fobt negative * will need colonoscopy screening to R.o colon cancer as out pt #Hematuria, proteinuria * Renal US results noted * Nephrology consult * urine protein to creatinine normal * Check PK, Hepatitis, HIV, RPR * PK posiitve and DSDNA negative unlikely lupus #HTN * Continue Norvasc, Toprol XL, Lasix #Hyperlipidemia On no medication #CAD * Continue Toprol XL * Continue aspirin if no evidence of GI bleeding #Type 2 DM * Hold glipizide * Fingersticks with Novolog sliding scale * A1c 7.2 #BPH #Obesity with BMI 39.0, educated # KELLEN screening as out pt #FEN * fluid restriction * monitor * sodium , K controlled diet # dispo: monitor in tele Visit type - Emergency Visit Emergency Visit: Yes ED Registration Date: 08/30/19 Care time: The patient presented to the Emergency Department on the above date and was hospitalized for further evaluation of their emergent condition. - New Patient This patient is new to me today: No - Critical Care Critical Care patient: No - Discharge Referral Referred to [facility] Med [facility] No ATTENDING PHYSICIAN STATEMENT I saw and evaluated the patient. I reviewed the resident's note and discussed the case with the resident. I agree with the resident's findings and plan as documented. SUBJECTIVE: OBJECTIVE: ASSESSMENT AND PLAN:
[2019-09-14 09:21] LABS: BASO % 0.7 % (0-2.0); EOS % 5.3 % (0-4.5); HEMATOCRIT 24.9 % (35.4-49); HEMOGLOBIN 8.3 GM/dL (11.7-16.9); LYMPH % 25.4 % (8-40); MCH 25.5 pg (25.7-33.7); MCHC 33.2 g/dl (32.0-35.9); MEAN CELL VOLUME 76.6 fl (80-96); MEAN PLT VOLUME 8.3 fl (7.5-11.1); MONO % 9.2 % (3.8-10.2); NEUT % 59.4 % (42.8-82.8); PLATELET COUNT 456 K/MM3 (134-434); RBC 3.26 M/mm3 (4.00-5.60); RDW 14.7 % (11.9-15.9); WHITE BLOOD COUNT 6.5 K/mm3 (4.0-10.0)
--- NOTE | 2019-09-14 10:04 | PN ---
Teaching Attending Note Name of Resident: Ariel Sun ATTENDING PHYSICIAN STATEMENT I saw and evaluated the patient. I reviewed the resident's note and discussed the case with the resident. I agree with the resident's findings and plan as documented. SUBJECTIVE: Patient feels comfortable improved, lower extremity swelling is decreasing OBJECTIVE: Vital Signs Temperature 97.7 F 09/14/19 10:00 Pulse Rate 76 09/14/19 10:00 Respiratory Rate 20 09/14/19 10:00 Blood Pressure 141/72 09/14/19 10:00 O2 Sat by Pulse Oximetry (%) 100 09/14/19 09:00 General: Middle-aged man, comfortable, not in distress HEENT; mucous membranes moist, no anemia, no jaundice, PERRLA, no nystagmus Neck: No JVD, supple, no bruit, thyroid palpably normal, normal carotid pulsations. Chest: Nontender, bilateral basal rales. CVS: S1-S2 regular no murmur/gallop/rub Abdomen: Nondistended, soft, bowel sounds present. Extremities: Status post toes amputations, + edema., No calf tenderness, pulses present [employer]: AO X3 , no gross motor sensory deficit CBC, BMP 09/14/19 05:05 09/14/19 05:05 Active Medications Acetaminophen (Tylenol -) 650 mg PO Q6H PRN PRN Reason: FEVER Last Admin: 09/03/19 15:25 Dose: 650 mg Amlodipine Besylate (Norvasc -) 10 mg PO DAILY [facility] Last Admin: 09/13/19 10:00 Dose: 10 mg Benzocaine/Menthol (Cepacol Lozenge -) 1 each MM Q2H PRN PRN Reason: SORE THROAT Last Admin: 09/06/19 22:34 Dose: 1 each Bisacodyl (Dulcolax Suppository -) 10 mg RC PRN PRN PRN Reason: CONSTIPATION Furosemide (Lasix Injection -) 100 mg IVPUSH BID@0600,1400 [facility] Last Admin: 09/14/19 08:31 Dose: 100 mg Guaifenesin/Codeine Phosphate (Robitussin Ac -) 10 ml PO Q8H PRN PRN Reason: COUGH Last Admin: 09/13/19 05:26 Dose: 10 ml Heparin Sodium (Porcine) (Heparin -) 5,000 unit SQ TID [facility] Last Admin: 09/14/19 07:06 Dose: 5,000 unit Milrinone Lactate/Dextrose (Milrinone 20mg/100ml Ivpb -) 20,000 mcg in 100 mls @ 6.892 mls/hr IVPB TITR [facility] Last Admin: 09/13/19 17:54 Dose: 0.25 mcg/kg/min, 6.9 mls/hr Insulin Aspart (Novolog Vial Sliding Scale -) 1 vial SQ ACHS [facility]; Protocol Last Admin: 09/14/19 07:08 Dose: Not Given Metolazone (Zaroxolyn -) 5 mg PO DAILY@0530 [facility] Last Admin: 09/14/19 07:09 Dose: 5 mg Metoprolol Succinate (Toprol Xl -) 50 mg PO BID [facility] Last Admin: 09/13/19 21:40 Dose: 50 mg Polyethylene Glycol (Miralax (For Daily Use) -) 17 gm PO DAILY [facility] Last Admin: 09/13/19 09:54 Dose: 17 gm ASSESSMENT AND PLAN:59 year old man with a history of HTN, hyperlipidemia, CAD, CHF, type 2 DM, stage 3 CKD, BPH with bladder outlet obstruction, 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 With decompensated heart failure work-up shows worsening left ventricular ejection fraction Impression: Decompensated systolic heart failure Problem List - Problems (1) Heart failure, systolic, with acute decompensation Assessment/Plan: Improving on diuretics and milrinone drip, daily weight input output chart follow-up cardiology recommendations Problems reviewed: Yes Code(s): I50.23 - ACUTE ON CHRONIC SYSTOLIC (CONGESTIVE) HEART FAILURE (2) Acute on chronic kidney failure Assessment/Plan: Stable renal functions follow-up BMP daily. Problems reviewed: Yes Code(s): N17.9 - ACUTE KIDNEY FAILURE, UNSPECIFIED; N18.9 - CHRONIC KIDNEY DISEASE, UNSPECIFIED (3) CAD (coronary artery disease) Assessment/Plan: Asymptomatic stable EKG and troponin I no acute issue Problems reviewed: Yes Code(s): I25.10 - ATHSCL HEART DISEASE OF [place] CORONARY ARTERY W/O ANG PCTRS (4) Diabetes Assessment/Plan: Type 2 diabetes mellitus optimize glycemic control Problems reviewed: Yes Code(s): E11.9 - TYPE 2 DIABETES MELLITUS WITHOUT COMPLICATIONS (5) HTN (hypertension) Assessment/Plan: Well-controlled continue all home medication Code(s): I10 - ESSENTIAL (PRIMARY) HYPERTENSION (6) HLD (hyperlipidemia) Assessment/Plan: Continue statin Code(s): E78.5 - HYPERLIPIDEMIA, UNSPECIFIED (7) Pulmonary hypertension Assessment/Plan: Evaluate with pulmonary consult will evaluate for possibility of KELLEN Problems reviewed: Yes Code(s): I27.20 - PULMONARY HYPERTENSION, UNSPECIFIED
[2019-09-14] MEDS: amLODIPine BESYLATE 10 MG TABLET (FP) PO SCH (10:19)
[2019-09-14] MEDS: POLYETHYLENE GLYCOL 3350 119 GM BTL PO SCH (10:19)
--- NOTE | 2019-09-14 11:10 | PN ---
Progress Note (short form) - Note Progress Note: s: edema improving. no chest pain, palps, dizziness, sob. Current Medications Acetaminophen (Tylenol -) 650 mg PO Q6H PRN PRN Reason: FEVER Last Admin: 09/03/19 15:25 Dose: 650 mg Amlodipine Besylate (Norvasc -) 10 mg PO DAILY [facility] Last Admin: 09/14/19 10:19 Dose: 10 mg Benzocaine/Menthol (Cepacol Lozenge -) 1 each MM Q2H PRN PRN Reason: SORE THROAT Last Admin: 09/06/19 22:34 Dose: 1 each Bisacodyl (Dulcolax Suppository -) 10 mg RC PRN PRN PRN Reason: CONSTIPATION Furosemide (Lasix Injection -) 100 mg IVPUSH BID@0600,1400 [facility] Last Admin: 09/14/19 08:31 Dose: 100 mg Guaifenesin/Codeine Phosphate (Robitussin Ac -) 10 ml PO Q8H PRN PRN Reason: COUGH Last Admin: 09/13/19 05:26 Dose: 10 ml Heparin Sodium (Porcine) (Heparin -) 5,000 unit SQ TID [facility] Last Admin: 09/14/19 07:06 Dose: 5,000 unit Milrinone Lactate/Dextrose (Milrinone 20mg/100ml Ivpb -) 20,000 mcg in 100 mls @ 3.446 mls/hr IVPB TITR [facility] Insulin Aspart (Novolog Vial Sliding Scale -) 1 vial SQ ACHS [facility]; Protocol Last Admin: 09/14/19 07:08 Dose: Not Given Metolazone (Zaroxolyn -) 5 mg PO DAILY@0530 [facility] Last Admin: 09/14/19 07:09 Dose: 5 mg Metoprolol Succinate (Toprol Xl -) 50 mg PO BID [facility] Last Admin: 09/14/19 10:19 Dose: 50 mg Polyethylene Glycol (Miralax (For Daily Use) -) 17 gm PO DAILY [facility] Last Admin: 09/14/19 10:19 Dose: 17 gm Vital Signs Period Temp Pulse Resp BP Sys/Garner Pulse Ox Last 24 Hr 97.5 F-98.1 F 68-76 20-20 120-144/62-73 97-100 Constitutional: Yes: No Distress Neck: Yes: Supple Cardiovascular: Yes: Regular Rate and Rhythm, JVD Respiratory: Yes: CTA Bilaterally Gastrointestinal: Yes: Soft, Abdomen, Obese Edema: Yes Edema: LLE: 2+ (warm), RLE: 2+ (warm) Neurological: Yes: Alert, Oriented no jaundice, diaphoresis not agitated Assessment/Plan cath 02/2018 nonobstructive CAD, nl EF Echo 09/15: mild conc LVH; severe, global LV hypo/EF 30%. nl RV. mild-mod TR. RVSP 42. tele: SR 59M h/o DM, HTN, HLD, s/p L great toe amputation and partial 2nd toe amputation p/w toe ulcer and bilateral lower extremity swelling: Acute on chronic systolic HF exacerbation - BNP >[id number] - echo here with severe decreased lvef, new since 2017 echo, likely NICM given recent unremarkable cath - lasix 40 iv bid here--held 09/04 given Creat up to 2.5--bun/creat up further - 09/05 milrinone started, edema improved with milrinone, lasix 100 mg BID and daily metolazone - likely nearing euvolemic, weight 196 today - reduce milrinone to 0.125 mcg/kg/min, monitor uop, volume status - monitor lytes, replete K/Mag to usual strict targets, daily weights - cont toprol (ok with milrinone) - consider outpt sleep study - defer RAAS blockers until renal fxn stabilizes s/p diuresis - will need EF surveillance after 3 mo optimized GDMT--rec ICD at that time if EF not improved JASWINDER/CKD: - Cr now improving - cont milrinone, lasix as above - Renal following HTN: - bp reasonable - cont bb - JORGE +/- spirono later, as above
--- NOTE | 2019-09-14 11:13 | PN ---
Progress Note, Physician History of Present Illness: PULMONARY ALERT,FEELING BETTER,OOB-CHAIR,SOB CONTINUES TO IMPROVE,LESS EDEMA - Current Medication List Current Medications: Active Medications Acetaminophen (Tylenol -) 650 mg PO Q6H PRN PRN Reason: FEVER Last Admin: 09/03/19 15:25 Dose: 650 mg Amlodipine Besylate (Norvasc -) 10 mg PO DAILY [facility] Last Admin: 09/14/19 10:19 Dose: 10 mg Benzocaine/Menthol (Cepacol Lozenge -) 1 each MM Q2H PRN PRN Reason: SORE THROAT Last Admin: 09/06/19 22:34 Dose: 1 each Bisacodyl (Dulcolax Suppository -) 10 mg RC PRN PRN PRN Reason: CONSTIPATION Furosemide (Lasix Injection -) 100 mg IVPUSH BID@0600,1400 [facility] Last Admin: 09/14/19 08:31 Dose: 100 mg Guaifenesin/Codeine Phosphate (Robitussin Ac -) 10 ml PO Q8H PRN PRN Reason: COUGH Last Admin: 09/13/19 05:26 Dose: 10 ml Heparin Sodium (Porcine) (Heparin -) 5,000 unit SQ TID [facility] Last Admin: 09/14/19 07:06 Dose: 5,000 unit Milrinone Lactate/Dextrose (Milrinone 20mg/100ml Ivpb -) 20,000 mcg in 100 mls @ 3.446 mls/hr IVPB TITR [facility] Insulin Aspart (Novolog Vial Sliding Scale -) 1 vial SQ ACHS [facility]; Protocol Last Admin: 09/14/19 07:08 Dose: Not Given Metolazone (Zaroxolyn -) 5 mg PO DAILY@0530 [facility] Last Admin: 09/14/19 07:09 Dose: 5 mg Metoprolol Succinate (Toprol Xl -) 50 mg PO BID [facility] Last Admin: 09/14/19 10:19 Dose: 50 mg Polyethylene Glycol (Miralax (For Daily Use) -) 17 gm PO DAILY [facility] Last Admin: 09/14/19 10:19 Dose: 17 gm - Objective Vital Signs: Vital Signs Temperature 97.7 F 09/14/19 10:00 Pulse Rate 76 09/14/19 10:00 Respiratory Rate 20 09/14/19 10:00 Blood Pressure 141/72 09/14/19 10:00 O2 Sat by Pulse Oximetry (%) 100 09/14/19 09:00 Constitutional: Yes: Well Nourished, Calm Eyes: Yes: WNL HENT: Yes: WNL Neck: Yes: WNL Cardiovascular: Yes: Regular Rate and Rhythm, S1, S2 Respiratory: Yes: Rales (FEW BIBASILAR CRACKLES) Gastrointestinal: Yes: Normal Bowel Sounds, Soft Extremities: Yes: WNL Edema: Yes (LESS EDEMA) Labs: CBC, BMP 09/14/19 05:05 09/14/19 05:05 Problem List - Problems (1) Anasarca associated with disorder of kidney Code(s): N04.9 - NEPHROTIC SYNDROME WITH UNSPECIFIED MORPHOLOGIC CHANGES (2) CKD (chronic kidney disease) Code(s): N18.9 - CHRONIC KIDNEY DISEASE, UNSPECIFIED Qualifiers: Chronic kidney disease stage: unspecified stage Qualified Code(s): N18.9 - Chronic kidney disease, unspecified (3) Cough Code(s): R05 - COUGH (4) Edema Code(s): R60.9 - EDEMA, UNSPECIFIED Qualifiers: Edema type: generalized Qualified Code(s): R60.1 - Generalized edema (5) CHF (congestive heart failure) Code(s): I50.9 - HEART FAILURE, UNSPECIFIED Qualifiers: Heart failure type: unspecified Heart failure chronicity: chronic Qualified Code(s): I50.9 - Heart failure, unspecified (6) Anemia Code(s): D64.9 - ANEMIA, UNSPECIFIED (7) CAD (coronary artery disease) Code(s): I25.10 - ATHSCL HEART DISEASE OF [place] CORONARY ARTERY W/O ANG PCTRS (8) Diabetes Code(s): E11.9 - TYPE 2 DIABETES MELLITUS WITHOUT COMPLICATIONS (9) HLD (hyperlipidemia) Code(s): E78.5 - HYPERLIPIDEMIA, UNSPECIFIED (10) HTN (hypertension) Code(s): I10 - ESSENTIAL (PRIMARY) HYPERTENSION (11) Systolic and diastolic CHF w/reduced LV function, NYHA class 4 Code(s): I50.40 - UNSP COMBINED SYSTOLIC AND DIASTOLIC (CONGESTIVE) HRT FAIL Assessment/Plan IMP DYSPNEA/COUGH IMPROVING ACUTE ON CHRONIC SYSTOLIC/DIASTOLIC HF SEVERE LV SYSTOLIC DYSFUNCTION WITH SEVERE GLOBAL HYPOKINESIS ANASARCA ACUTE ON CHRONIC KIDNEY FAILURE PULMONARY HTN DM HLD H/O HEMOPTYSIS ANEMIA OSAS AHI 68 0N SLEEP SCREEN PLAN IV LASIX PER CARDIOLOGY DAILY WTS O2 NEEDED F/U CHEST X-RAYS MONITOR LYTES,RENAL FUNCTION MONITOR H+H FULL SLEEP STUDIES OUTPATIENT DR RUST Problem List - Problems (1) Anasarca associated with disorder of kidney Code(s): N04.9 - NEPHROTIC SYNDROME WITH UNSPECIFIED MORPHOLOGIC CHANGES (2) CKD (chronic kidney disease) Code(s): N18.9 - CHRONIC KIDNEY DISEASE, UNSPECIFIED Qualifiers: Chronic kidney disease stage: unspecified stage Qualified Code(s): N18.9 - Chronic kidney disease, unspecified (3) Cough Code(s): R05 - COUGH (4) Edema Code(s): R60.9 - EDEMA, UNSPECIFIED Qualifiers: Edema type: generalized Qualified Code(s): R60.1 - Generalized edema (5) CHF (congestive heart failure) Code(s): I50.9 - HEART FAILURE, UNSPECIFIED Qualifiers: Heart failure type: unspecified Heart failure chronicity: chronic Qualified Code(s): I50.9 - Heart failure, unspecified (6) Anemia Code(s): D64.9 - ANEMIA, UNSPECIFIED (7) CAD (coronary artery disease) Code(s): I25.10 - ATHSCL HEART DISEASE OF [place] CORONARY ARTERY W/O ANG PCTRS (8) Diabetes Code(s): E11.9 - TYPE 2 DIABETES MELLITUS WITHOUT COMPLICATIONS (9) HLD (hyperlipidemia) Code(s): E78.5 - HYPERLIPIDEMIA, UNSPECIFIED (10) HTN (hypertension) Code(s): I10 - ESSENTIAL (PRIMARY) HYPERTENSION (11) Systolic and diastolic CHF w/reduced LV function, NYHA class 4 Code(s): I50.40 - UNSP COMBINED SYSTOLIC AND DIASTOLIC (CONGESTIVE) HRT FAIL
--- NOTE | 2019-09-14 12:23 | PN ---
Progress Note, Physician Chief Complaint: The patient seen and examined in his room. Seems comfortable. Sitting by his bed. Still with significant edema. Maintains good urine output. On Milrinone, Lasix and Metolazone. History of Present Illness: 59 year old gentleman with history of CKD stage 3, hypertension, DM type 2, BPH, hyperlipidemia who presented from home with shortness of breath, leg and arm swelling and admitted for diastolic HF. 1. Anasarca 2. Diastolic HF 3. CKD stage 3 4. Metabolic acidosis 5. Anemia 6. Proteinuria - Current Medication List Current Medications: Active Medications Acetaminophen (Tylenol -) 650 mg PO Q6H PRN PRN Reason: FEVER Last Admin: 09/03/19 15:25 Dose: 650 mg Amlodipine Besylate (Norvasc -) 10 mg PO DAILY [facility] Last Admin: 09/14/19 10:19 Dose: 10 mg Benzocaine/Menthol (Cepacol Lozenge -) 1 each MM Q2H PRN PRN Reason: SORE THROAT Last Admin: 09/06/19 22:34 Dose: 1 each Bisacodyl (Dulcolax Suppository -) 10 mg RC PRN PRN PRN Reason: CONSTIPATION Furosemide (Lasix Injection -) 100 mg IVPUSH BID@0600,1400 [facility] Last Admin: 09/14/19 08:31 Dose: 100 mg Guaifenesin/Codeine Phosphate (Robitussin Ac -) 10 ml PO Q8H PRN PRN Reason: COUGH Last Admin: 09/13/19 05:26 Dose: 10 ml Heparin Sodium (Porcine) (Heparin -) 5,000 unit SQ TID [facility] Last Admin: 09/14/19 07:06 Dose: 5,000 unit Milrinone Lactate/Dextrose (Milrinone 20mg/100ml Ivpb -) 20,000 mcg in 100 mls @ 3.446 mls/hr IVPB TITR [facility] Insulin Aspart (Novolog Vial Sliding Scale -) 1 vial SQ ACHS [facility]; Protocol Last Admin: 09/14/19 07:08 Dose: Not Given Metolazone (Zaroxolyn -) 5 mg PO DAILY@0530 [facility] Last Admin: 09/14/19 07:09 Dose: 5 mg Metoprolol Succinate (Toprol Xl -) 50 mg PO BID [facility] Last Admin: 09/14/19 10:19 Dose: 50 mg Polyethylene Glycol (Miralax (For Daily Use) -) 17 gm PO DAILY [facility] Last Admin: 09/14/19 10:19 Dose: 17 gm - Objective Vital Signs: Vital Signs Temperature 97.7 F 09/14/19 10:00 Pulse Rate 76 09/14/19 10:00 Respiratory Rate 20 09/14/19 10:00 Blood Pressure 141/72 09/14/19 10:00 O2 Sat by Pulse Oximetry (%) 100 09/14/19 09:00 Constitutional: Yes: No Distress, Calm Eyes: Yes: Conjunctiva Clear HENT: Yes: Normocephalic Cardiovascular: Yes: Regular Rate and Rhythm, S1, S2 Respiratory: Yes: CTA Bilaterally, Diminished Gastrointestinal: Yes: Normal Bowel Sounds, Soft Genitourinary: No: Bladder Distention, CVA Tenderness - Left, CVA Tenderness - Right, Hematuria Edema: Yes Edema: LLE: 3+, RLE: 3+ Neurological: Yes: Oriented Labs: CBC, BMP 09/14/19 05:05 09/14/19 05:05 Problem List - Problems (1) Acute on chronic kidney failure Code(s): N17.9 - ACUTE KIDNEY FAILURE, UNSPECIFIED; N18.9 - CHRONIC KIDNEY DISEASE, UNSPECIFIED (2) CKD (chronic kidney disease) Code(s): N18.9 - CHRONIC KIDNEY DISEASE, UNSPECIFIED Qualifiers: Chronic kidney disease stage: unspecified stage Qualified Code(s): N18.9 - Chronic kidney disease, unspecified (3) Edema Code(s): R60.9 - EDEMA, UNSPECIFIED Qualifiers: Edema type: generalized Qualified Code(s): R60.1 - Generalized edema (4) Heart failure, systolic, with acute decompensation Code(s): I50.23 - ACUTE ON CHRONIC SYSTOLIC (CONGESTIVE) HEART FAILURE (5) Anemia Code(s): D64.9 - ANEMIA, UNSPECIFIED (6) CAD (coronary artery disease) Code(s): I25.10 - ATHSCL HEART DISEASE OF [place] CORONARY ARTERY W/O ANG PCTRS (7) Diabetes Code(s): E11.9 - TYPE 2 DIABETES MELLITUS WITHOUT COMPLICATIONS (8) Diabetic retinopathy associated with controlled type 2 diabetes mellitus Code(s): E11.319 - TYPE 2 DIABETES W UNSP DIABETIC RTNOP W/O MACULAR EDEMA (9) HTN (hypertension) Code(s): I10 - ESSENTIAL (PRIMARY) HYPERTENSION (10) Amputated toe of left foot Code(s): Z89.422 - ACQUIRED ABSENCE OF OTHER LEFT TOE(S) (11) Enlarged prostate Code(s): N40.0 - BENIGN PROSTATIC HYPERPLASIA WITHOUT LOWER URINRY TRACT SYMP Assessment/Plan 59 year old gentleman with history of CKD stage 3, hypertension, DM type 2, BPH, hyperlipidemia who presented from home with shortness of breath, leg and arm swelling and admitted for diastolic HF. 1. Anasarca 2. Diastolic HF 3. CKD stage 3 4. Metabolic acidosis 5. Anemia 6. Proteinuria The patient is tolerating the current regimen of Milrinone, Lasix and Metolazone. Weight slowly coming down. Azotemia fairly stable. Will continue the current regimen. Monitor the renal/ electrolyte profile closely. Margarita Culver MD
[2019-09-14] MEDS: MILRINONE 20MG/100ML IVPB - 20,000 MCG/100 ML ML IVPB SCH (12:51)
[2019-09-15] MEDS ORDERED: PT OWN MED DRAWER 7, Y5N ONE (05:20)
[2019-09-15] MEDS: HEPARIN NA (PORCINE) 5,000 UNITS/ML 1ML VIAL SQ SCH ×3 (05:24→21:30)
[2019-09-15] MEDS: METOLAZONE 5 MG TABLET PO SCH (05:24)
[2019-09-15] MEDS: INSULIN SLIDING SCALE (NOVOLOG) 1 VIAL SQ SCH ×4 (06:04→21:30)
[2019-09-15] MEDS: FUROSEMIDE 40 MG/4 ML INJECTABLE VIAL IVPUSH SCH ×2 (06:19→15:36)
[2019-09-15 07:22] LABS: BASO % 0.8 % (0-2.0); EOS % 5.6 % (0-4.5); HEMATOCRIT 26.2 % (35.4-49); HEMOGLOBIN 8.6 GM/dL (11.7-16.9); LYMPH % 26.7 % (8-40); MCH 25.4 pg (25.7-33.7); MCHC 32.9 g/dl (32.0-35.9); MEAN PLT VOLUME 7.9 fl (7.5-11.1); MONO % 9.7 % (3.8-10.2); NEUT % 57.2 % (42.8-82.8); PLATELET COUNT 479 K/MM3 (134-434); RDW 14.9 % (11.9-15.9); WHITE BLOOD COUNT 6.5 K/mm3 (4.0-10.0)
--- NOTE | 2019-09-15 07:40 | PN ---
Physical Exam: SUBJECTIVE: Patient seen and examined at bed side , No acute events over night breathing is better , LE edema trending down cont lasix to 100 BID per nephrology urine out put about one 1.5L resume asa as H/H s stable and no source of GI bleed OBJECTIVE: Vital Signs Period Temp Pulse Resp BP Sys/Garner Pulse Ox Last 24 Hr 97.2 F-97.9 F 69-76 20-20 98-147/61-82 99-100 GENERAL: AAOx3 in NAD HEAD: NC/AT EYES: EOMI, Conjunctiva clear, sclera anicteric ENT: moist mucous membrane NECK: Supple, no JVD LUNGS: bibasilar crackles HEART: RRR, NSR, normal s1, s2, murmur no M/R/G ABDOMEN: Soft, ND, NT, +BS 4 Q, no CVA Tenderness LOWER EXTREMITIES: +2 edema, +2DP pulse, NEUROLOGICAL: No focal deficit. Normal speech. gait not observed. PSYCHIATRIC: Cooperative. Good eye contact. Appropriate mood and affect. SKIN: Warm, dry, Laboratory Results - last 24 hr 09/14/19 09/14/19 09/14/19 05:05 11:11 16:10 WBC 6.5 RBC 3.26 L Hgb 8.3 L Hct 24.9 L MCV 76.6 L MCH 25.5 L MCHC 33.2 RDW 14.7 Plt Count 456 H MPV 8.3 Absolute Neuts (auto) 3.9 Neutrophils % 59.4 Lymphocytes % 25.4 Monocytes % 9.2 Eosinophils % 5.3 H Basophils % 0.7 Nucleated RBC % 0 POC Glucometer 227 94 09/14/19 09/15/19 22:10 05:31 WBC RBC Hgb Hct MCV MCH MCHC RDW Plt Count MPV Absolute Neuts (auto) Neutrophils % Lymphocytes % Monocytes % Eosinophils % Basophils % Nucleated RBC % POC Glucometer 200 113 Active Medications Generic Name Dose Route Start Last Admin Trade Name Freq PRN Reason Stop Dose Admin Acetaminophen 650 mg 09/03/19 15:18 09/03/19 15:25 Tylenol - PO 650 mg Q6H PRN Administration FEVER Amlodipine Besylate 10 mg 09/01/19 10:00 09/14/19 10:19 Norvasc - PO 10 mg DAILY [facility] Administration Benzocaine/Menthol 1 each 09/04/19 15:59 09/06/19 22:34 Cepacol Lozenge - MM 1 each Q2H PRN Administration SORE THROAT Bisacodyl 10 mg 08/31/19 05:01 Dulcolax Suppository - RC PRN PRN CONSTIPATION Furosemide 100 mg 09/07/19 10:40 09/15/19 06:19 Lasix Injection - IVPUSH 100 mg BID@0600,1400 [facility] Administration Guaifenesin/Codeine Phosphate 10 ml 09/06/19 01:54 09/13/19 05:26 Robitussin Ac - PO 10 ml Q8H PRN Administration COUGH Heparin Sodium (Porcine) 5,000 unit 08/31/19 14:00 09/15/19 05:24 Heparin - SQ 5,000 unit TID [facility] Administration Milrinone Lactate/Dextrose 20,000 mcg in 100 mls @ 3.446 mls/hr 09/14/19 11: 06 09/14/19 12:51 Milrinone 20mg/100ml Ivpb - IVPB 0.11 mcg/kg/min TITR [facility] 3.3 mls/hr Administration 0.125 MCG/KG/MIN Insulin Aspart 1 vial 08/31/19 07:00 09/15/19 06:04 Novolog Vial Sliding Scale - SQ Not Given ACHS [facility] Protocol Metolazone 5 mg 09/10/19 05:30 09/15/19 05:24 Zaroxolyn - PO 5 mg DAILY@0530 [facility] Administration Metoprolol Succinate 50 mg 09/02/19 10:00 09/14/19 22:12 Toprol Xl - PO 50 mg BID [facility] Administration Polyethylene Glycol 17 gm 09/12/19 13:45 09/14/19 10:19 Miralax (For Daily Use) - PO 17 gm DAILY [facility] Administration CBC, BMP 09/15/19 05:35 09/15/19 05:35 ASSESSMENT/PLAN: This is a 59 year old man with a history of HTN, hyperlipidemia, CAD, chronic diastolic heart failure, type 2 DM, stage 3 CKD, BPH with bladder outlet obstruction, 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 #Acute on Systolic CHF exacerbation. # Anasacra * increase IV lasix 100 mg BID, add metolazone per nephrology * Monitor I&O, weight * echo with EF 30%, with severe LV global hypokinesis * taper melrinone per cardiology * FU CMP * FU cardio reccs * will need EF surveillance after 3 mo optimized GDMT--rec ICD at that time if EF not improved per cardiology * resume ASA as no GI bleeding * #Stage 3 CKD * Creatinine 3.1 ...3.2...3.0 ...2.9. 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 * Previously diagnosed with iron deficiency * Hgb unchanged from 04/2019 * iron low irone and low ferritin * fobt negative * will need colonoscopy screening to R.o colon cancer as out pt #Hematuria, proteinuria * Renal US results noted * Nephrology consult * urine protein to creatinine normal * Check PK, Hepatitis, HIV, RPR * PK posiitve and DSDNA negative unlikely lupus #HTN * Continue Norvasc, Toprol XL, Lasix #Hyperlipidemia On no medication #CAD * Continue Toprol XL * Continue aspirin if no evidence of GI bleeding #Type 2 DM * Hold glipizide * Fingersticks with Novolog sliding scale * A1c 7.2 #BPH #Obesity with BMI 39.0, educated # KELLEN screening as out pt #FEN * fluid restriction * monitor * sodium , K controlled diet # dispo: monitor in tele Visit type - Emergency Visit Emergency Visit: Yes ED Registration Date: 08/30/19 Care time: The patient presented to the Emergency Department on the above date and was hospitalized for further evaluation of their emergent condition. - New Patient This patient is new to me today: No - Critical Care Critical Care patient: No ATTENDING PHYSICIAN STATEMENT I saw and evaluated the patient. I reviewed the resident's note and discussed the case with the resident. I agree with the resident's findings and plan as documented. SUBJECTIVE: OBJECTIVE: ASSESSMENT AND PLAN:
[2019-09-15 07:45] LABS: ALBUMIN 2.4 g/dl (3.4-5.0); BILIRUBIN,TOTAL 0.2 mg/dL (0.2-1); BLOOD UREA NITROGEN 75.2 mg/dL (7-18); CALCIUM 8.4 mg/dL (8.5-10.1); CREATININE 2.9 mg/dL (0.55-1.3); POTASSIUM 4.6 mmol/L (3.5-5.1); TOT PROT 6.3 g/dl (6.4-8.2)
--- NOTE | 2019-09-15 09:45 | PN ---
Teaching Attending Note Name of Resident: Ariel Sun ATTENDING PHYSICIAN STATEMENT I saw and evaluated the patient. I reviewed the resident's note and discussed the case with the resident. I agree with the resident's findings and plan as documented. SUBJECTIVE: Patient feels improved, good diuresis OBJECTIVE: Vital Signs Temperature 97.2 F L 09/15/19 05:00 Pulse Rate 72 09/15/19 05:00 Respiratory Rate 20 09/15/19 05:00 Blood Pressure 147/82 09/15/19 05:00 O2 Sat by Pulse Oximetry (%) 99 09/14/19 21:00 General: Middle-aged man, comfortable, not in distress HEENT; mucous membranes moist, no anemia, no jaundice, PERRLA, no nystagmus Neck: No JVD, supple, no bruit, thyroid palpably normal, normal carotid pulsations. Chest: Nontender, bilateral basal rales. CVS: S1-S2 regular no murmur/gallop/rub Abdomen: Nondistended, soft, bowel sounds present. 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 motor sensory deficit CBC, BMP 09/15/19 05:35 09/15/19 05:35 Active Medications Acetaminophen (Tylenol -) 650 mg PO Q6H PRN PRN Reason: FEVER Last Admin: 09/03/19 15:25 Dose: 650 mg Amlodipine Besylate (Norvasc -) 10 mg PO DAILY [facility] Last Admin: 09/13/19 10:00 Dose: 10 mg Benzocaine/Menthol (Cepacol Lozenge -) 1 each MM Q2H PRN PRN Reason: SORE THROAT Last Admin: 09/06/19 22:34 Dose: 1 each Bisacodyl (Dulcolax Suppository -) 10 mg RC PRN PRN PRN Reason: CONSTIPATION Furosemide (Lasix Injection -) 100 mg IVPUSH BID@0600,1400 [facility] Last Admin: 09/14/19 08:31 Dose: 100 mg Guaifenesin/Codeine Phosphate (Robitussin Ac -) 10 ml PO Q8H PRN PRN Reason: COUGH Last Admin: 09/13/19 05:26 Dose: 10 ml Heparin Sodium (Porcine) (Heparin -) 5,000 unit SQ TID [facility] Last Admin: 09/14/19 07:06 Dose: 5,000 unit Milrinone Lactate/Dextrose (Milrinone 20mg/100ml Ivpb -) 20,000 mcg in 100 mls @ 6.892 mls/hr IVPB TITR [facility] Last Admin: 09/13/19 17:54 Dose: 0.25 mcg/kg/min, 6.9 mls/hr Insulin Aspart (Novolog Vial Sliding Scale -) 1 vial SQ ACHS [facility]; Protocol Last Admin: 09/14/19 07:08 Dose: Not Given Metolazone (Zaroxolyn -) 5 mg PO DAILY@0530 [facility] Last Admin: 09/14/19 07:09 Dose: 5 mg Metoprolol Succinate (Toprol Xl -) 50 mg PO BID [facility] Last Admin: 09/13/19 21:40 Dose: 50 mg Polyethylene Glycol (Miralax (For Daily Use) -) 17 gm PO DAILY [facility] Last Admin: 09/13/19 09:54 Dose: 17 gm ASSESSMENT AND PLAN:59 year old man with a history of HTN, hyperlipidemia, CAD, CHF, type 2 DM, stage 3 CKD, BPH with bladder outlet obstruction, 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 With decompensated heart failure work-up shows worsening left ventricular ejection fraction Impression: Decompensated heart failure with reduced ejection fraction on admission hypervolemia with hypoperfusion on milrinone and diuretic. Problem List - Problems (1) Heart failure, systolic, with acute decompensation Assessment/Plan: Improving on diuretics and milrinone drip, daily weight input output chart follow-up cardiology recommendations Code(s): I50.23 - ACUTE ON CHRONIC SYSTOLIC (CONGESTIVE) HEART FAILURE (2) Acute on chronic kidney failure Assessment/Plan: Stable renal functions follow-up BMP daily. Code(s): N17.9 - ACUTE KIDNEY FAILURE, UNSPECIFIED; N18.9 - CHRONIC KIDNEY DISEASE, UNSPECIFIED (3) CAD (coronary artery disease) Assessment/Plan: Asymptomatic stable EKG and troponin I no acute issue Code(s): I25.10 - ATHSCL HEART DISEASE OF [place] CORONARY ARTERY W/O ANG PCTRS (4) Diabetes Assessment/Plan: Type 2 diabetes mellitus optimize glycemic control Code(s): E11.9 - TYPE 2 DIABETES MELLITUS WITHOUT COMPLICATIONS (5) HTN (hypertension) Assessment/Plan: Well-controlled continue all home medication Code(s): I10 - ESSENTIAL (PRIMARY) HYPERTENSION (6) HLD (hyperlipidemia) Assessment/Plan: Continue statin Code(s): E78.5 - HYPERLIPIDEMIA, UNSPECIFIED (7) Pulmonary hypertension Assessment/Plan: Evaluate with pulmonary consult will evaluate for possibility of KELLEN Code(s): I27.20 - PULMONARY HYPERTENSION, UNSPECIFIED
--- NOTE | 2019-09-15 11:03 | PN ---
Progress Note, Physician History of Present Illness: pulmonary alert,comfortable,-sob at rest,cough improved - Current Medication List Current Medications: Active Medications Acetaminophen (Tylenol -) 650 mg PO Q6H PRN PRN Reason: FEVER Last Admin: 09/03/19 15:25 Dose: 650 mg Amlodipine Besylate (Norvasc -) 10 mg PO DAILY [facility] Last Admin: 09/14/19 10:19 Dose: 10 mg Benzocaine/Menthol (Cepacol Lozenge -) 1 each MM Q2H PRN PRN Reason: SORE THROAT Last Admin: 09/06/19 22:34 Dose: 1 each Bisacodyl (Dulcolax Suppository -) 10 mg RC PRN PRN PRN Reason: CONSTIPATION Furosemide (Lasix Injection -) 100 mg IVPUSH BID@0600,1400 [facility] Last Admin: 09/15/19 06:19 Dose: 100 mg Guaifenesin/Codeine Phosphate (Robitussin Ac -) 10 ml PO Q8H PRN PRN Reason: COUGH Last Admin: 09/13/19 05:26 Dose: 10 ml Heparin Sodium (Porcine) (Heparin -) 5,000 unit SQ TID [facility] Last Admin: 09/15/19 05:24 Dose: 5,000 unit Milrinone Lactate/Dextrose (Milrinone 20mg/100ml Ivpb -) 20,000 mcg in 100 mls @ 3.446 mls/hr IVPB TITR [facility] Last Admin: 09/14/19 12:51 Dose: 0.11 mcg/kg/min, 3.3 mls/hr Insulin Aspart (Novolog Vial Sliding Scale -) 1 vial SQ ACHS [facility]; Protocol Last Admin: 09/15/19 06:04 Dose: Not Given Metolazone (Zaroxolyn -) 5 mg PO DAILY@0530 [facility] Last Admin: 09/15/19 05:24 Dose: 5 mg Metoprolol Succinate (Toprol Xl -) 50 mg PO BID [facility] Last Admin: 09/14/19 22:12 Dose: 50 mg Polyethylene Glycol (Miralax (For Daily Use) -) 17 gm PO DAILY [facility] Last Admin: 09/14/19 10:19 Dose: 17 gm - Objective Vital Signs: Vital Signs Temperature 98.9 F 09/15/19 09:00 Pulse Rate 71 09/15/19 09:00 Respiratory Rate 20 09/15/19 09:00 Blood Pressure 130/64 09/15/19 09:00 O2 Sat by Pulse Oximetry (%) 99 09/14/19 21:00 Constitutional: Yes: Well Nourished, Calm Eyes: Yes: WNL HENT: Yes: WNL Neck: Yes: WNL Cardiovascular: Yes: Regular Rate and Rhythm, S1, S2 Respiratory: Yes: Rales (few bibasail rales) Gastrointestinal: Yes: Normal Bowel Sounds, Soft Extremities: Yes: WNL Edema: Yes Labs: CBC, BMP 09/15/19 05:35 09/15/19 05:35 Problem List - Problems (1) Anasarca associated with disorder of kidney Code(s): N04.9 - NEPHROTIC SYNDROME WITH UNSPECIFIED MORPHOLOGIC CHANGES (2) CKD (chronic kidney disease) Code(s): N18.9 - CHRONIC KIDNEY DISEASE, UNSPECIFIED Qualifiers: Chronic kidney disease stage: unspecified stage Qualified Code(s): N18.9 - Chronic kidney disease, unspecified (3) Cough Code(s): R05 - COUGH (4) Edema Code(s): R60.9 - EDEMA, UNSPECIFIED Qualifiers: Edema type: generalized Qualified Code(s): R60.1 - Generalized edema (5) CHF (congestive heart failure) Code(s): I50.9 - HEART FAILURE, UNSPECIFIED Qualifiers: Heart failure type: unspecified Heart failure chronicity: chronic Qualified Code(s): I50.9 - Heart failure, unspecified (6) Anemia Code(s): D64.9 - ANEMIA, UNSPECIFIED (7) CAD (coronary artery disease) Code(s): I25.10 - ATHSCL HEART DISEASE OF [place] CORONARY ARTERY W/O ANG PCTRS (8) Diabetes Code(s): E11.9 - TYPE 2 DIABETES MELLITUS WITHOUT COMPLICATIONS (9) HLD (hyperlipidemia) Code(s): E78.5 - HYPERLIPIDEMIA, UNSPECIFIED (10) HTN (hypertension) Code(s): I10 - ESSENTIAL (PRIMARY) HYPERTENSION (11) Systolic and diastolic CHF w/reduced LV function, NYHA class 4 Code(s): I50.40 - UNSP COMBINED SYSTOLIC AND DIASTOLIC (CONGESTIVE) HRT FAIL Assessment/Plan IMP DYSPNEA/COUGH IMPROVING ACUTE ON CHRONIC SYSTOLIC/DIASTOLIC HF SEVERE LV SYSTOLIC DYSFUNCTION WITH SEVERE GLOBAL HYPOKINESIS ANASARCA ACUTE ON CHRONIC KIDNEY FAILURE PULMONARY HTN DM HLD H/O HEMOPTYSIS ANEMIA [facility]AS AHI 68 0N SLEEP SCREEN PLAN IV LASIX PER CARDIOLOGY Milrinone DAILY WTS O2 NEEDED F/U CHEST X-RAYS MONITOR LYTES,RENAL FUNCTION MONITOR H+H FULL SLEEP STUDIES OUTPATIENT DR RUST Problem List - Problems (1) Anasarca associated with disorder of kidney Code(s): N04.9 - NEPHROTIC SYNDROME WITH UNSPECIFIED MORPHOLOGIC CHANGES (2) CKD (chronic kidney disease) Code(s): N18.9 - CHRONIC KIDNEY DISEASE, UNSPECIFIED Qualifiers: Chronic kidney disease stage: unspecified stage Qualified Code(s): N18.9 - Chronic kidney disease, unspecified (3) Cough Code(s): R05 - COUGH (4) Edema Code(s): R60.9 - EDEMA, UNSPECIFIED Qualifiers: Edema type: generalized Qualified Code(s): R60.1 - Generalized edema (5) CHF (congestive heart failure) Code(s): I50.9 - HEART FAILURE, UNSPECIFIED Qualifiers: Heart failure type: unspecified Heart failure chronicity: chronic Qualified Code(s): I50.9 - Heart failure, unspecified (6) Anemia Code(s): D64.9 - ANEMIA, UNSPECIFIED (7) CAD (coronary artery disease) Code(s): I25.10 - ATHSCL HEART DISEASE OF [place] CORONARY ARTERY W/O ANG PCTRS (8) Diabetes Code(s): E11.9 - TYPE 2 DIABETES MELLITUS WITHOUT COMPLICATIONS (9) HLD (hyperlipidemia) Code(s): E78.5 - HYPERLIPIDEMIA, UNSPECIFIED (10) HTN (hypertension) Code(s): I10 - ESSENTIAL (PRIMARY) HYPERTENSION (11) Systolic and diastolic CHF w/reduced LV function, NYHA class 4 Code(s): I50.40 - UNSP COMBINED SYSTOLIC AND DIASTOLIC (CONGESTIVE) HRT FAIL
[2019-09-15] MEDS ORDERED: INSULIN (NOVOLOG) ASPART 100 UNITS/ML 10ML VIAL ONE (11:15)
[2019-09-15] MEDS: POLYETHYLENE GLYCOL 3350 119 GM BTL PO SCH (11:26)
[2019-09-15] MEDS: amLODIPine BESYLATE 10 MG TABLET (FP) PO SCH (11:26)
[2019-09-15] MEDS: MILRINONE 20MG/100ML IVPB - 20,000 MCG/100 ML ML IVPB SCH (11:27)
--- NOTE | 2019-09-15 11:41 | PN ---
Progress Note (short form) - Note Progress Note: s: no sob cp palps dizzy; le edema better no cigs Current Medications Generic Name Dose Route Start Last Admin Trade Name Freq PRN Reason Stop Dose Admin Acetaminophen 650 mg 09/03/19 15:18 09/03/19 15:25 Tylenol - PO 650 mg Q6H PRN Administration FEVER Amlodipine Besylate 10 mg 09/01/19 10:00 09/15/19 11:26 Norvasc - PO 10 mg DAILY [facility] Administration Benzocaine/Menthol 1 each 09/04/19 15:59 09/06/19 22:34 Cepacol Lozenge - MM 1 each Q2H PRN Administration SORE THROAT Bisacodyl 10 mg 08/31/19 05:01 Dulcolax Suppository - RC PRN PRN CONSTIPATION Furosemide 100 mg 09/07/19 10:40 09/15/19 06:19 Lasix Injection - IVPUSH 100 mg BID@0600,1400 [facility] Administration Guaifenesin/Codeine Phosphate 10 ml 09/06/19 01:54 09/13/19 05:26 Robitussin Ac - PO 10 ml Q8H PRN Administration COUGH Heparin Sodium (Porcine) 5,000 unit 08/31/19 14:00 09/15/19 05:24 Heparin - SQ 5,000 unit TID [facility] Administration Milrinone Lactate/Dextrose 20,000 mcg in 100 mls @ 3.446 mls/hr 09/14/19 11: 06 09/15/19 11:27 Milrinone 20mg/100ml Ivpb - IVPB 0.125 mcg/kg/min TITR [facility] 3.446 mls/hr Administration 0.125 MCG/KG/MIN Insulin Aspart 1 vial 08/31/19 07:00 09/15/19 11:26 Novolog Vial Sliding Scale - SQ 4 units ACHS [facility] Administration Protocol Metolazone 5 mg 09/10/19 05:30 09/15/19 05:24 Zaroxolyn - PO 5 mg DAILY@0530 [facility] Administration Metoprolol Succinate 50 mg 09/02/19 10:00 09/15/19 11:26 Toprol Xl - PO 50 mg BID [facility] Administration Polyethylene Glycol 17 gm 09/12/19 13:45 09/15/19 11:26 Miralax (For Daily Use) - PO 17 gm DAILY [facility] Administration Vital Signs Period Temp Pulse Resp BP Sys/Garner Pulse Ox Last 24 Hr 97.2 F-98.9 F 69-72 20-20 98-147/61-82 99 Constitutional: Yes: No Distress, Calm Eyes: No: Sclera Icterus HENT: No: Nasal Congestion Cardiovascular: Yes: Regular Rate and Rhythm, JVD (almost to jaw), S1, S2, Other (PMI non diplaced). No: Gallop, Murmur Respiratory: Yes: CTA Bilaterally, Rales (bases). No: Accessory Muscle Use, Wheezes Gastrointestinal: Yes: Normal Bowel Sounds, Soft. No: Tenderness Musculoskeletal: Yes: Other (No kyphosis) Extremities: No: Cold, Cyanosis Edema: Yes (1+ pretib) Integumentary: No: Jaundice Neurological: Yes: Alert, Oriented (x3) Psychiatric: No: Agitated CBC, BMP 09/15/19 05:35 09/15/19 05:35 Assessment/Plan cath 02/2018 nonobstructive CAD, nl EF Echo 09/15: mild conc LVH; severe, global LV hypo/EF 30%. nl RV. mild-mod TR. RVSP 42. tele: SR 59M h/o DM, HTN, HLD, s/p L great toe amputation and partial 2nd toe amputation p/w toe ulcer and bilateral lower extremity swelling: Acute on chronic systolic HF exacerbation - BNP >36288 - echo here with severe decreased lvef, new since 2018 echo, likely NICM given recent unremarkable cath - lasix 40 iv bid here--held 09/04 given Creat up to 2.5--bun/creat up further - 09/05 milrinone started, edema improved with milrinone, lasix 100 mg BID and daily metolazone -09/15: vol status continues to improve, wt down, cr improving. cont same regimen. - monitor lytes, replete K/Mag to usual strict targets, daily weights - cont toprol (ok with milrinone) - consider outpt sleep study - defer RAAS blockers until renal fxn stabilizes s/p diuresis - will need EF surveillance after 3 mo optimized GDMT--rec ICD at that time if EF not improved JASWINDER/CKD: - Cr now improving - cont milrinone, lasix as above - Renal following HTN: - bp reasonable - cont bb - JORGE +/- spirono later, as above
[2019-09-15] MEDS: ASPIRIN COATED 81 MG TABLET.EC PO SCH (17:19)
--- NOTE | 2019-09-15 19:40 | PN ---
Progress Note, Physician History of Present Illness: Pt seen and examined at bedside. He is awake and alert. He denies shortness of breath. He feels that his lower ext edema is improving. - Current Medication List Current Medications: Active Medications Acetaminophen (Tylenol -) 650 mg PO Q6H PRN PRN Reason: FEVER Last Admin: 09/03/19 15:25 Dose: 650 mg Amlodipine Besylate (Norvasc -) 10 mg PO DAILY [facility] Last Admin: 09/15/19 11:26 Dose: 10 mg Aspirin (Ecotrin -) 81 mg PO DAILY [facility] Last Admin: 09/15/19 17:19 Dose: 81 mg Benzocaine/Menthol (Cepacol Lozenge -) 1 each MM Q2H PRN PRN Reason: SORE THROAT Last Admin: 09/06/19 22:34 Dose: 1 each Bisacodyl (Dulcolax Suppository -) 10 mg RC PRN PRN PRN Reason: CONSTIPATION Furosemide (Lasix Injection -) 100 mg IVPUSH BID@0600,1400 [facility] Last Admin: 09/15/19 15:36 Dose: 100 mg Guaifenesin/Codeine Phosphate (Robitussin Ac -) 10 ml PO Q8H PRN PRN Reason: COUGH Last Admin: 09/13/19 05:26 Dose: 10 ml Heparin Sodium (Porcine) (Heparin -) 5,000 unit SQ TID [facility] Last Admin: 09/15/19 15:36 Dose: 5,000 unit Milrinone Lactate/Dextrose (Milrinone 20mg/100ml Ivpb -) 20,000 mcg in 100 mls @ 3.446 mls/hr IVPB TITR [facility] Last Admin: 09/15/19 11:27 Dose: 0.125 mcg/kg/min, 3.446 mls/hr Insulin Aspart (Novolog Vial Sliding Scale -) 1 vial SQ ACHS [facility]; Protocol Last Admin: 09/15/19 17:19 Dose: 2 units Metolazone (Zaroxolyn -) 5 mg PO DAILY@0530 [facility] Last Admin: 09/15/19 05:24 Dose: 5 mg Metoprolol Succinate (Toprol Xl -) 50 mg PO BID [facility] Last Admin: 09/15/19 11:26 Dose: 50 mg Polyethylene Glycol (Miralax (For Daily Use) -) 17 gm PO DAILY [facility] Last Admin: 02/20/20 11:26 Dose: 17 gm - Objective Vital Signs: Vital Signs Temperature 98.4 F 09/15/19 13:49 Pulse Rate 69 09/15/19 13:49 Respiratory Rate 20 09/15/19 13:49 Blood Pressure 128/62 09/15/19 13:49 O2 Sat by Pulse Oximetry (%) 98 09/15/19 09:00 Constitutional: Yes: Calm Eyes: Yes: Conjunctiva Clear HENT: Yes: Atraumatic Neck: Yes: Supple Cardiovascular: Yes: S1, S2 Respiratory: Yes: CTA Bilaterally Gastrointestinal: Yes: Soft Genitourinary: Yes: WNL Musculoskeletal: Yes: WNL Edema: Yes (improving) Edema: LLE: 2+, RLE: 2+ Labs: CBC, BMP 09/15/19 05:35 09/15/19 05:35 Problem List - Problems (1) CKD (chronic kidney disease) Code(s): N18.9 - CHRONIC KIDNEY DISEASE, UNSPECIFIED Qualifiers: Chronic kidney disease stage: unspecified stage Qualified Code(s): N18.9 - Chronic kidney disease, unspecified (2) Edema Code(s): R60.9 - EDEMA, UNSPECIFIED Qualifiers: Edema type: generalized Qualified Code(s): R60.1 - Generalized edema (3) CHF (congestive heart failure) Code(s): I50.9 - HEART FAILURE, UNSPECIFIED Qualifiers: Heart failure type: unspecified Heart failure chronicity: chronic Qualified Code(s): I50.9 - Heart failure, unspecified Assessment/Plan Current Medications Generic Name Dose Route Start Last Admin Trade Name Franq PRN Reason Stop Dose Admin Acetaminophen 650 mg 09/03/19 15:18 09/03/19 15:25 Tylenol - PO 650 mg Q6H PRN Administration FEVER Amlodipine Besylate 10 mg 09/01/19 10:00 09/15/19 11:26 Norvasc - PO 10 mg DAILY [facility] Administration Aspirin 81 mg 09/15/19 16:15 09/15/19 17:19 Ecotrin - PO 81 mg DAILY [facility] Administration Benzocaine/Menthol 1 each 09/04/19 15:59 09/06/19 22:34 Cepacol Lozenge - MM 1 each Q2H PRN Administration SORE THROAT Bisacodyl 10 mg 08/31/19 05:01 Dulcolax Suppository - RC PRN PRN CONSTIPATION Furosemide 100 mg 09/07/19 10:40 09/15/19 15:36 Lasix Injection - IVPUSH 100 mg BID@0600,1400 [facility] Administration Guaifenesin/Codeine Phosphate 10 ml 09/06/19 01:54 09/13/19 05:26 Robitussin Ac - PO 10 ml Q8H PRN Administration COUGH Heparin Sodium (Porcine) 5,000 unit 08/31/19 14:00 09/15/19 15:36 Heparin - SQ 5,000 unit TID [facility] Administration Milrinone Lactate/Dextrose 20,000 mcg in 100 mls @ 3.446 mls/hr 09/14/19 11: 06 09/15/19 11:27 Milrinone 20mg/100ml Ivpb - IVPB 0.125 mcg/kg/min TITR [facility] 3.446 mls/hr Administration 0.125 MCG/KG/MIN Insulin Aspart 1 vial 08/31/19 07:00 09/15/19 17:19 Novolog Vial Sliding Scale - SQ 2 units ACHS [facility] Administration Protocol Metolazone 5 mg 09/10/19 05:30 09/15/19 05:24 Zaroxolyn - PO 5 mg DAILY@0530 [facility] Administration Metoprolol Succinate 50 mg 09/02/19 10:00 09/15/19 11:26 Toprol Xl - PO 50 mg BID [facility] Administration Polyethylene Glycol 17 gm 09/12/19 13:45 09/15/19 11:26 Miralax (For Daily Use) - PO 17 gm DAILY [facility] Administration Selected Entries 08/30/19 09/15/19 14:34 04:52 Weight 220 lb 193 lb 6.4 oz Impression 1. Anasarca 2. Diastolic HF 3. CKD stage 3 4. Metabolic acidosis 5. Anemia 6. Proteinuria - nephrotic 7. 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
[2019-09-15] MEDS: guaiFENesin/CODEINE 5 ML UNIT-DOSE CUPS PO PRN (21:33)
[2019-09-15 22:04] VITALS: BMI 34.2
[2019-09-16] MEDS: METOLAZONE 5 MG TABLET PO SCH (05:28)
[2019-09-16] MEDS: FUROSEMIDE 40 MG/4 ML INJECTABLE VIAL IVPUSH SCH ×2 (06:45→16:26)
[2019-09-16] MEDS: HEPARIN NA (PORCINE) 5,000 UNITS/ML 1ML VIAL SQ SCH ×3 (06:45→23:11)
[2019-09-16] MEDS: INSULIN SLIDING SCALE (NOVOLOG) 1 VIAL SQ SCH ×4 (06:45→23:21)
[2019-09-16 07:25] LABS: BASO % 0.8 % (0-2.0); HEMATOCRIT 27.7 % (35.4-49); LYMPH % 22.6 % (8-40); MCH 25.2 pg (25.7-33.7); MCHC 32.7 g/dl (32.0-35.9); MEAN CELL VOLUME 77.2 fl (80-96); MEAN PLT VOLUME 7.8 fl (7.5-11.1); MONO % 10.2 % (3.8-10.2); NEUT % 61.4 % (42.8-82.8); PLATELET COUNT 505 K/MM3 (134-434); RBC 3.58 M/mm3 (4.00-5.60); RDW 14.9 % (11.9-15.9); WHITE BLOOD COUNT 6.9 K/mm3 (4.0-10.0)
[2019-09-16 07:56] LABS: ALBUMIN 2.5 g/dl (3.4-5.0); BILIRUBIN,TOTAL 0.3 mg/dL (0.2-1); CALCIUM 8.3 mg/dL (8.5-10.1); MAGNESIUM 2.8 mg/dL (1.8-2.4); PHOSPHOROUS 6.2 mg/dL (2.5-4.9); POTASSIUM 4.3 mmol/L (3.5-5.1); TOT PROT 6.4 g/dl (6.4-8.2)
--- NOTE | 2019-09-16 08:14 | PN ---
Physical Exam: SUBJECTIVE: Patient seen and examined at bed side , No acute events over night breathing is better , LE edema trending down cont lasix to 100 BID per nephrology lost 2.7 pound since yesterday monitor of milrinone drip resume asa as H/H s stable and no source of GI bleed OBJECTIVE: Vital Signs Period Temp Pulse Resp BP Sys/Garner Pulse Ox Last 24 Hr 97.7 F-98.9 F 67-72 20-20 128-149/62-75 98-100 GENERAL: AAOx3 in NAD HEAD: NC/AT EYES: EOMI, Conjunctiva clear, sclera anicteric ENT: moist mucous membrane NECK: Supple, no JVD LUNGS: bibasilar crackles HEART: RRR, NSR, normal s1, s2, murmur no M/R/G ABDOMEN: Soft, ND, NT, +BS 4 Q, no CVA Tenderness LOWER EXTREMITIES: +2 edema, +2DP pulse, NEUROLOGICAL: No focal deficit. Normal speech. gait not observed. PSYCHIATRIC: Cooperative. Good eye contact. Appropriate mood and affect. SKIN: Warm, dry, Laboratory Results - last 24 hr 09/15/19 09/15/19 09/15/19 11:25 17:11 21:19 WBC RBC Hgb Hct MCV MCH MCHC RDW Plt Count MPV Absolute Neuts (auto) Neutrophils % Lymphocytes % Monocytes % Eosinophils % Basophils % Nucleated RBC % Sodium Potassium Chloride Carbon Dioxide Anion Gap BUN Creatinine Est GFR (CKD-EPI)AfAm Est GFR (CKD-EPI)NonAf POC Glucometer 223 171 226 Random Glucose Calcium Phosphorus Magnesium Total Bilirubin AST ALT Alkaline Phosphatase Total Protein Albumin 09/16/19 09/16/19 09/16/19 05:23 05:55 05:55 WBC 6.9 RBC 3.58 L Hgb 9.0 L Hct 27.7 L MCV 77.2 L MCH 25.2 L MCHC 32.7 RDW 14.9 Plt Count 505 H MPV 7.8 Absolute Neuts (auto) 4.3 Neutrophils % 61.4 Lymphocytes % 22.6 Monocytes % 10.2 Eosinophils % 5.0 H Basophils % 0.8 Nucleated RBC % 0 Sodium 134 L Potassium 4.3 Chloride 96 L Carbon Dioxide 29 Anion Gap 9 BUN 79.0 H Creatinine 3.0 H Est GFR (CKD-EPI)AfAm 25.36 Est GFR (CKD-EPI)NonAf 21.88 POC Glucometer 139 Random Glucose 121 H Calcium 8.3 L Phosphorus 6.2 H Magnesium 2.8 H Total Bilirubin 0.3 AST 19 ALT 21 Alkaline Phosphatase 118 H Total Protein 6.4 Albumin 2.5 L Active Medications Generic Name Dose Route Start Last Admin Trade Name Freq PRN Reason Stop Dose Admin Acetaminophen 650 mg 09/03/19 15:18 09/03/19 15:25 Tylenol - PO 650 mg Q6H PRN Administration FEVER Amlodipine Besylate 10 mg 09/01/19 10:00 09/15/19 11:26 Norvasc - PO 10 mg DAILY [facility] Administration Aspirin 81 mg 09/15/19 16:15 09/15/19 17:19 Ecotrin - PO 81 mg DAILY [facility] Administration Benzocaine/Menthol 1 each 09/04/19 15:59 09/06/19 22:34 Cepacol Lozenge - MM 1 each Q2H PRN Administration SORE THROAT Bisacodyl 10 mg 08/31/19 05:01 Dulcolax Suppository - RC PRN PRN CONSTIPATION Furosemide 100 mg 09/07/19 10:40 09/16/19 06:45 Lasix Injection - IVPUSH 100 mg BID@0600,1400 [facility] Administration Guaifenesin/Codeine Phosphate 10 ml 09/06/19 01:54 09/15/19 21:33 Robitussin Ac - PO 10 ml Q8H PRN Administration COUGH Heparin Sodium (Porcine) 5,000 unit 08/31/19 14:00 09/16/19 06:45 Heparin - SQ 5,000 unit TID [facility] Administration Milrinone Lactate/Dextrose 20,000 mcg in 100 mls @ 3.446 mls/hr 09/14/19 11: 06 09/15/19 21:31 Milrinone 20mg/100ml Ivpb - IVPB 0.125 mcg/kg/min TITR [facility] 3.446 mls/hr Infusion 0.125 MCG/KG/MIN Insulin Aspart 1 vial 08/31/19 07:00 09/16/19 06:45 Novolog Vial Sliding Scale - SQ Not Given ACHS [facility] Protocol Metolazone 5 mg 09/10/19 05:30 09/16/19 05:28 Zaroxolyn - PO 5 mg DAILY@0530 [facility] Administration Metoprolol Succinate 50 mg 09/02/19 10:00 09/15/19 21:31 Toprol Xl - PO 50 mg BID [facility] Administration Polyethylene Glycol 17 gm 09/12/19 13:45 09/15/19 11:26 Miralax (For Daily Use) - PO 17 gm DAILY [facility] Administration CBC, BMP 09/16/19 05:55 09/16/19 05:55 ASSESSMENT/PLAN: This is a 59 year old man with a history of HTN, hyperlipidemia, CAD, chronic diastolic heart failure, type 2 DM, stage 3 CKD, BPH with bladder outlet obstruction, 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 #Acute on Systolic CHF exacerbation. # Anasacra * increase IV lasix 100 mg BID, add metolazone per nephrology * Monitor I&O, weight * echo with EF 30%, with severe LV global hypokinesis * monitor off melrinone per cardiology * FU CMP * FU cardio reccs * will need EF surveillance after 3 mo optimized GDMT--rec ICD at that time if EF not improved per cardiology * resume ASA as no GI bleeding #Stage 3 CKD * Creatinine 3.1 ...3.2...3.0 ...2.9. 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 * Previously diagnosed with iron deficiency * Hgb unchanged from 04/2019 * iron low irone and low ferritin * fobt negative * will need colonoscopy screening to R.o colon cancer as out pt #Hematuria, proteinuria * Renal US results noted * Nephrology consult * urine protein to creatinine normal * Check PK, Hepatitis, HIV, RPR * PK positive and DSDNA negative unlikely lupus #HTN * Continue Norvasc, Toprol XL, Lasix #Hyperlipidemia On no medication #CAD * Continue Toprol XL * Continue aspirin if no evidence of GI bleeding #Type 2 DM * Hold glipizide * Fingersticks with Novolog sliding scale * A1c 7.2 #BPH #Obesity with BMI 39.0, educated # KELLEN screening as out pt #FEN * fluid restriction * monitor * sodium , K controlled diet # dispo: monitor in tele Visit type - Emergency Visit Emergency Visit: Yes ED Registration Date: 08/30/19 Care time: The patient presented to the Emergency Department on the above date and was hospitalized for further evaluation of their emergent condition. - New Patient This patient is new to me today: No - Critical Care Critical Care patient: No - Discharge Referral Referred to [id number] No ATTENDING PHYSICIAN STATEMENT I saw and evaluated the patient. I reviewed the resident's note and discussed the case with the resident. I agree with the resident's findings and plan as documented. SUBJECTIVE: OBJECTIVE: ASSESSMENT AND PLAN:
--- NOTE | 2019-09-16 09:33 | PN ---
Progress Note, Physician Chief Complaint: feeling better EDEMA is SIG IMPROVED History of Present Illness: weight down from 220 to 187lbs TELE: NSR CXR 09/15: CLEAR - Current Medication List Current Medications: Active Medications Acetaminophen (Tylenol -) 650 mg PO Q6H PRN PRN Reason: FEVER Last Admin: 09/03/19 15:25 Dose: 650 mg Amlodipine Besylate (Norvasc -) 10 mg PO DAILY [facility] Last Admin: 09/15/19 11:26 Dose: 10 mg Aspirin (Ecotrin -) 81 mg PO DAILY [facility] Last Admin: 09/15/19 17:19 Dose: 81 mg Benzocaine/Menthol (Cepacol Lozenge -) 1 each MM Q2H PRN PRN Reason: SORE THROAT Last Admin: 09/06/19 22:34 Dose: 1 each Bisacodyl (Dulcolax Suppository -) 10 mg RC PRN PRN PRN Reason: CONSTIPATION Furosemide (Lasix Injection -) 100 mg IVPUSH BID@0600,1400 [facility] Last Admin: 09/16/19 06:45 Dose: 100 mg Guaifenesin/Codeine Phosphate (Robitussin Ac -) 10 ml PO Q8H PRN PRN Reason: COUGH Last Admin: 09/15/19 21:33 Dose: 10 ml Heparin Sodium (Porcine) (Heparin -) 5,000 unit SQ TID [facility] Last Admin: 09/16/19 06:45 Dose: 5,000 unit Milrinone Lactate/Dextrose (Milrinone 20mg/100ml Ivpb -) 20,000 mcg in 100 mls @ 3.446 mls/hr IVPB TITR [facility] Last Infusion: 09/15/19 21:31 Dose: 0.125 mcg/kg/min, 3.446 mls/hr Insulin Aspart (Novolog Vial Sliding Scale -) 1 vial SQ ACHS [facility]; Protocol Last Admin: 09/16/19 06:45 Dose: Not Given Metolazone (Zaroxolyn -) 5 mg PO DAILY@0530 [facility] Last Admin: 09/16/19 05:28 Dose: 5 mg Metoprolol Succinate (Toprol Xl -) 50 mg PO BID [facility] Last Admin: 09/15/19 21:31 Dose: 50 mg Polyethylene Glycol (Miralax (For Daily Use) -) 17 gm PO DAILY [facility] Last Admin: 09/15/19 11:26 Dose: 17 gm - Objective Vital Signs: Vital Signs Temperature 97.7 F 09/16/19 05:00 Pulse Rate 67 09/16/19 05:00 Respiratory Rate 20 09/16/19 05:00 Blood Pressure 145/75 09/16/19 05:00 O2 Sat by Pulse Oximetry (%) 100 09/15/19 21:00 Constitutional: Yes: No Distress, Calm Cardiovascular: Yes: Regular Rate and Rhythm Respiratory: Yes: CTA Bilaterally (NO rales.) Gastrointestinal: Yes: Soft Edema: Yes Edema: LLE: 1+, RLE: 1+ Neurological: Yes: Alert, Oriented Labs: CBC, BMP 09/16/19 05:55 09/16/19 05:55 Laboratory Tests 09/16/19 09/16/19 05:55 05:55 WBC 6.9 Hgb 9.0 L Plt Count 505 H Sodium 134 L Potassium 4.3 BUN 79.0 H Creatinine 3.0 H Assessment/Plan Assessment/Plan cath 02/2018 nonobstructive CAD, nl EF Echo 09/15: mild conc LVH; severe, global LV hypo/EF 30%. nl RV. mild-mod TR. RVSP 42. tele: SR 59M h/o DM, HTN, HLD, s/p L great toe amputation and partial 2nd toe amputation p/w toe ulcer and bilateral lower extremity swelling: Acute on chronic systolic HF exacerbation: - BNP >73825 - echo here with severe decreased lvef, new since 2018 echo, likely NICM given recent unremarkable cath - lasix 40 iv bid here--held 09/04 given Creat up to 2.5--bun/creat up further - 09/05 milrinone started, edema improved with milrinone, lasix 100 mg BID and daily metolazone -09/16: vol status sig improved., wt down, cr stable. Will d/c milrinone - monitor lytes, replete K/Mag to usual strict targets, daily weights - cont toprol (ok with milrinone) - consider outpt sleep study - defer RAAS blockers until renal fxn stabilizes s/p diuresis - will need EF surveillance after 3 mo optimized GDMT--rec ICD at that time if EF not improved JASWINDER/CKD: - Cr now improved/stable - lasix as above. Would d/c Milrinone. - Renal following HTN: - bp reasonable - cont bb - JORGE +/- spirono later, as above
[2019-09-16] MEDS: amLODIPine BESYLATE 10 MG TABLET (FP) PO SCH (09:46)
[2019-09-16] MEDS: ASPIRIN COATED 81 MG TABLET.EC PO SCH (09:47)
[2019-09-16] MEDS: POLYETHYLENE GLYCOL 3350 119 GM BTL PO SCH (09:47)
--- NOTE | 2019-09-16 10:02 | PN ---
Progress Note, Physician Chief Complaint: The patient seen and examined in his room. Seems comfortable. Sitting by his bed. The edema has improved significantly. He continues to have excellent diuretic response. On Milrinone, Lasix and Metolazone. History of Present Illness: 59 year old gentleman with history of CKD stage 3, hypertension, DM type 2, BPH, hyperlipidemia who presented from home with shortness of breath, leg and arm swelling and admitted for diastolic HF. 1. Anasarca 2. Diastolic HF 3. CKD stage 3 4. Metabolic acidosis 5. Anemia 6. Proteinuria - Current Medication List Current Medications: Active Medications Acetaminophen (Tylenol -) 650 mg PO Q6H PRN PRN Reason: FEVER Last Admin: 09/03/19 15:25 Dose: 650 mg Amlodipine Besylate (Norvasc -) 10 mg PO DAILY [facility] Last Admin: 09/16/19 09:46 Dose: 10 mg Aspirin (Ecotrin -) 81 mg PO DAILY [facility] Last Admin: 09/16/19 09:47 Dose: 81 mg Benzocaine/Menthol (Cepacol Lozenge -) 1 each MM Q2H PRN PRN Reason: SORE THROAT Last Admin: 09/06/19 22:34 Dose: 1 each Bisacodyl (Dulcolax Suppository -) 10 mg RC PRN PRN PRN Reason: CONSTIPATION Furosemide (Lasix Injection -) 100 mg IVPUSH BID@0600,1400 [facility] Last Admin: 09/16/19 06:45 Dose: 100 mg Guaifenesin/Codeine Phosphate (Robitussin Ac -) 10 ml PO Q8H PRN PRN Reason: COUGH Last Admin: 09/15/19 21:33 Dose: 10 ml Heparin Sodium (Porcine) (Heparin -) 5,000 unit SQ TID [facility] Last Admin: 09/16/19 06:45 Dose: 5,000 unit Milrinone Lactate/Dextrose (Milrinone 20mg/100ml Ivpb -) 20,000 mcg in 100 mls @ 3.446 mls/hr IVPB TITR [facility] Last Infusion: 09/15/19 21:31 Dose: 0.125 mcg/kg/min, 3.446 mls/hr Insulin Aspart (Novolog Vial Sliding Scale -) 1 vial SQ ACHS [facility]; Protocol Last Admin: 09/16/19 06:45 Dose: Not Given Metolazone (Zaroxolyn -) 5 mg PO DAILY@0530 [facility] Last Admin: 09/16/19 05:28 Dose: 5 mg Metoprolol Succinate (Toprol Xl -) 50 mg PO BID [facility] Last Admin: 09/16/19 09:46 Dose: 50 mg Polyethylene Glycol (Miralax (For Daily Use) -) 17 gm PO DAILY [facility] Last Admin: 09/16/19 09:47 Dose: 17 gm - Objective Vital Signs: Vital Signs Temperature 97.7 F 09/16/19 05:00 Pulse Rate 67 09/16/19 05:00 Respiratory Rate 09/16/19 05:00 Blood Pressure 145/75 09/16/19 05:00 O2 Sat by Pulse Oximetry (%) 100 09/15/19 21:00 Constitutional: Yes: No Distress Eyes: Yes: Conjunctiva Clear HENT: Yes: Normocephalic Neck: Yes: Trachea Midline Cardiovascular: Yes: Regular Rate and Rhythm, S1, S2 Respiratory: Yes: Regular, CTA Bilaterally Gastrointestinal: Yes: Normal Bowel Sounds, Abdomen, Obese Musculoskeletal: No: Back Pain Edema: Yes Edema: LLE: 2+, RLE: 2+ Neurological: Yes: Alert, Oriented Psychiatric: Yes: Alert, Oriented Labs: CBC, BMP 09/16/19 05:55 09/16/19 05:55 Problem List - Problems (1) Acute on chronic kidney failure Code(s): N17.9 - ACUTE KIDNEY FAILURE, UNSPECIFIED; N18.9 - CHRONIC KIDNEY DISEASE, UNSPECIFIED (2) CKD (chronic kidney disease) Code(s): N18.9 - CHRONIC KIDNEY DISEASE, UNSPECIFIED Qualifiers: Chronic kidney disease stage: unspecified stage Qualified Code(s): N18.9 - Chronic kidney disease, unspecified (3) Edema Code(s): R60.9 - EDEMA, UNSPECIFIED Qualifiers: Edema type: generalized Qualified Code(s): R60.1 - Generalized edema (4) Heart failure, systolic, with acute decompensation Code(s): I50.23 - ACUTE ON CHRONIC SYSTOLIC (CONGESTIVE) HEART FAILURE (5) Anemia Code(s): D64.9 - ANEMIA, UNSPECIFIED (6) CAD (coronary artery disease) Code(s): I25.10 - ATHSCL HEART DISEASE OF [place] CORONARY ARTERY W/O ANG PCTRS (7) Diabetes Code(s): E11.9 - TYPE 2 DIABETES MELLITUS WITHOUT COMPLICATIONS (8) Diabetic retinopathy associated with controlled type 2 diabetes mellitus Code(s): E11.319 - TYPE 2 DIABETES W UNSP DIABETIC RTNOP W/O MACULAR EDEMA (9) HTN (hypertension) Code(s): I10 - ESSENTIAL (PRIMARY) HYPERTENSION (10) Amputated toe of left foot Code(s): Z89.422 - ACQUIRED ABSENCE OF OTHER LEFT TOE(S) (11) Enlarged prostate Code(s): N40.0 - BENIGN PROSTATIC HYPERPLASIA WITHOUT LOWER URINRY TRACT SYMP Assessment/Plan 59 year old gentleman with history of CKD stage 3, hypertension, DM type 2, BPH, hyperlipidemia who presented from home with shortness of breath, leg and arm swelling and admitted for diastolic HF. 1. Anasarca 2. Diastolic HF 3. CKD stage 3 4. Metabolic acidosis 5. Anemia 6. Proteinuria The patient is tolerating the current regimen of Milrinone, Lasix and Metolazone. Weight slowly coming down. Azotemia fairly stable. Discussed the management with the teaching team. The patient is discharged, he could be sent home on torsemide 100 mg once a day and could be followed as outpatient. Monitor the renal/ electrolyte profile closely. Margarita Culver MD
--- NOTE | 2019-09-16 11:15 | PN ---
Progress Note, Physician History of Present Illness: pulmonary alert comfortable ,-sob - Current Medication List Current Medications: Active Medications Acetaminophen (Tylenol -) 650 mg PO Q6H PRN PRN Reason: FEVER Last Admin: 09/03/19 15:25 Dose: 650 mg Amlodipine Besylate (Norvasc -) 10 mg PO DAILY [facility] Last Admin: 09/16/19 09:46 Dose: 10 mg Aspirin (Ecotrin -) 81 mg PO DAILY [facility] Last Admin: 09/16/19 09:47 Dose: 81 mg Benzocaine/Menthol (Cepacol Lozenge -) 1 each MM Q2H PRN PRN Reason: SORE THROAT Last Admin: 09/06/19 22:34 Dose: 1 each Bisacodyl (Dulcolax Suppository -) 10 mg RC PRN PRN PRN Reason: CONSTIPATION Furosemide (Lasix Injection -) 100 mg IVPUSH BID@0600,1400 [facility] Last Admin: 09/16/19 06:45 Dose: 100 mg Guaifenesin/Codeine Phosphate (Robitussin Ac -) 10 ml PO Q8H PRN PRN Reason: COUGH Last Admin: 09/15/19 21:33 Dose: 10 ml Heparin Sodium (Porcine) (Heparin -) 5,000 unit SQ TID [facility] Last Admin: 09/16/19 06:45 Dose: 5,000 unit Milrinone Lactate/Dextrose (Milrinone 20mg/100ml Ivpb -) 20,000 mcg in 100 mls @ 3.446 mls/hr IVPB TITR [facility] Last Infusion: 09/15/19 21:31 Dose: 0.125 mcg/kg/min, 3.446 mls/hr Insulin Aspart (Novolog Vial Sliding Scale -) 1 vial SQ ACHS [facility]; Protocol Last Admin: 09/16/19 06:45 Dose: Not Given Metolazone (Zaroxolyn -) 5 mg PO DAILY@0530 [facility] Last Admin: 09/16/19 05:28 Dose: 5 mg Metoprolol Succinate (Toprol Xl -) 50 mg PO BID [facility] Last Admin: 09/16/19 09:46 Dose: 50 mg Polyethylene Glycol (Miralax (For Daily Use) -) 17 gm PO DAILY [facility] Last Admin: 09/16/19 09:47 Dose: 17 gm - Objective Vital Signs: Vital Signs Temperature 97.9 F 09/16/19 09:00 Pulse Rate 69 09/16/19 09:00 Respiratory Rate 20 09/16/19 09:00 Blood Pressure 144/76 09/16/19 09:00 O2 Sat by Pulse Oximetry (%) 98 09/16/19 09:00 Constitutional: Yes: Well Nourished, Calm Eyes: Yes: WNL HENT: Yes: WNL Neck: Yes: WNL Cardiovascular: Yes: Regular Rate and Rhythm, S1, S2 Respiratory: Yes: CTA Bilaterally Gastrointestinal: Yes: Normal Bowel Sounds, Soft Extremities: Yes: WNL Edema: Yes Edema: LLE: 1+, RLE: 1+ Labs: CBC, BMP 09/16/19 05:55 09/16/19 05:55 Problem List - Problems (1) Anasarca associated with disorder of kidney Code(s): N04.9 - NEPHROTIC SYNDROME WITH UNSPECIFIED MORPHOLOGIC CHANGES (2) CKD (chronic kidney disease) Code(s): N18.9 - CHRONIC KIDNEY DISEASE, UNSPECIFIED Qualifiers: Chronic kidney disease stage: unspecified stage Qualified Code(s): N18.9 - Chronic kidney disease, unspecified (3) Cough Code(s): R05 - COUGH (4) Edema Code(s): R60.9 - EDEMA, UNSPECIFIED Qualifiers: Edema type: generalized Qualified Code(s): R60.1 - Generalized edema (5) CHF (congestive heart failure) Code(s): I50.9 - HEART FAILURE, UNSPECIFIED Qualifiers: Heart failure type: unspecified Heart failure chronicity: chronic Qualified Code(s): I50.9 - Heart failure, unspecified (6) Anemia Code(s): D64.9 - ANEMIA, UNSPECIFIED (7) CAD (coronary artery disease) Code(s): I25.10 - ATHSCL HEART DISEASE OF [place] CORONARY ARTERY W/O ANG PCTRS (8) Diabetes Code(s): E11.9 - TYPE 2 DIABETES MELLITUS WITHOUT COMPLICATIONS (9) HLD (hyperlipidemia) Code(s): E78.5 - HYPERLIPIDEMIA, UNSPECIFIED (10) HTN (hypertension) Code(s): I10 - ESSENTIAL (PRIMARY) HYPERTENSION (11) Systolic and diastolic CHF w/reduced LV function, NYHA class 4 Code(s): I50.40 - UNSP COMBINED SYSTOLIC AND DIASTOLIC (CONGESTIVE) HRT FAIL Assessment/Plan IMP DYSPNEA/COUGH IMPROVING ACUTE ON CHRONIC SYSTOLIC/DIASTOLIC HF improving SEVERE LV SYSTOLIC DYSFUNCTION WITH SEVERE GLOBAL HYPOKINESIS ANASARCA improving ACUTE ON CHRONIC KIDNEY FAILURE PULMONARY HTN DM HLD H/O HEMOPTYSIS ANEMIA OSAS AHI 68 0N SLEEP SCREEN PLAN IV LASIX PER CARDIOLOGY Milrinone DAILY WTS O2 NEEDED F/U CHEST X-RAYS MONITOR LYTES,RENAL FUNCTION MONITOR H+H FULL SLEEP STUDIES OUTPATIENT DR RUST Problem List - Problems (1) Anasarca associated with disorder of kidney Code(s): N04.9 - NEPHROTIC SYNDROME WITH UNSPECIFIED MORPHOLOGIC CHANGES (2) CKD (chronic kidney disease) Code(s): N18.9 - CHRONIC KIDNEY DISEASE, UNSPECIFIED Qualifiers: Chronic kidney disease stage: unspecified stage Qualified Code(s): N18.9 - Chronic kidney disease, unspecified (3) Cough Code(s): R05 - COUGH (4) Edema Code(s): R60.9 - EDEMA, UNSPECIFIED Qualifiers: Edema type: generalized Qualified Code(s): R60.1 - Generalized edema (5) CHF (congestive heart failure) Code(s): I50.9 - HEART FAILURE, UNSPECIFIED Qualifiers: Heart failure type: unspecified Heart failure chronicity: chronic Qualified Code(s): I50.9 - Heart failure, unspecified (6) Anemia Code(s): D64.9 - ANEMIA, UNSPECIFIED (7) CAD (coronary artery disease) Code(s): I25.10 - ATHSCL HEART DISEASE OF [place] CORONARY ARTERY W/O ANG PCTRS (8) Diabetes Code(s): E11.9 - TYPE 2 DIABETES MELLITUS WITHOUT COMPLICATIONS (9) HLD (hyperlipidemia) Code(s): E78.5 - HYPERLIPIDEMIA, UNSPECIFIED (10) HTN (hypertension) Code(s): I10 - ESSENTIAL (PRIMARY) HYPERTENSION (11) Systolic and diastolic CHF w/reduced LV function, NYHA class 4 Code(s): I50.40 - UNSP COMBINED SYSTOLIC AND DIASTOLIC (CONGESTIVE) HRT FAIL
[2019-09-16] MEDS ORDERED: INSULIN (NOVOLOG) ASPART 100 UNITS/ML 10ML VIAL ONE (15:55)
--- NOTE | 2019-09-16 16:04 | PN ---
Teaching Attending Note Name of Resident: Ariel Sun ATTENDING PHYSICIAN STATEMENT I saw and evaluated the patient. I reviewed the resident's note and discussed the case with the resident. I agree with the resident's findings and plan as documented. SUBJECTIVE: Feels improved with less shortness of breath edema which is regressing OBJECTIVE: Vital Signs Temperature 97.9 F 09/16/19 09:00 Pulse Rate 69 09/16/19 09:00 Respiratory Rate 20 09/16/19 09:00 Blood Pressure 144/76 09/16/19 09:00 O2 Sat by Pulse Oximetry (%) 98 09/16/19 09:00 General: Middle-aged man, comfortable, not in distress HEENT; mucous membranes moist, no anemia, no jaundice, PERRLA, no nystagmus Neck: No JVD, supple, no bruit, thyroid palpably normal, normal carotid pulsations. Chest: Nontender, bilateral basal rales. CVS: S1-S2 regular no murmur/gallop/rub Abdomen: Nondistended, soft, bowel sounds present. 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: AO X3 , no gross motor sensory deficit CBC, BMP 09/16/19 05:55 09/16/19 05:55 Active Medications Acetaminophen (Tylenol -) 650 mg PO Q6H PRN PRN Reason: FEVER Last Admin: 09/03/19 15:25 Dose: 650 mg Amlodipine Besylate (Norvasc -) 10 mg PO DAILY [facility] Last Admin: 09/16/19 09:46 Dose: 10 mg Aspirin (Ecotrin -) 81 mg PO DAILY [facility] Last Admin: 09/16/19 09:47 Dose: 81 mg Benzocaine/Menthol (Cepacol Lozenge -) 1 each MM Q2H PRN PRN Reason: SORE THROAT Last Admin: 09/06/19 22:34 Dose: 1 each Bisacodyl (Dulcolax Suppository -) 10 mg RC PRN PRN PRN Reason: CONSTIPATION Furosemide (Lasix Injection -) 100 mg IVPUSH BID@0600,1400 [facility] Last Admin: 09/16/19 06:45 Dose: 100 mg Guaifenesin/Codeine Phosphate (Robitussin Ac -) 10 ml PO Q8H PRN PRN Reason: COUGH Last Admin: 09/15/19 21:33 Dose: 10 ml Heparin Sodium (Porcine) (Heparin -) 5,000 unit SQ TID [facility] Last Admin: 09/16/19 06:45 Dose: 5,000 unit Insulin Aspart (Novolog Vial Sliding Scale -) 1 vial SQ ACHS [facility]; Protocol Last Admin: 09/16/19 15:44 Dose: Not Given Metolazone (Zaroxolyn -) 5 mg PO DAILY@0530 [facility] Last Admin: 09/16/19 05:28 Dose: 5 mg Metoprolol Succinate (Toprol Xl -) 50 mg PO BID [facility] Last Admin: 09/16/19 09:46 Dose: 50 mg Polyethylene Glycol (Miralax (For Daily Use) -) 17 gm PO DAILY [facility] Last Admin: 09/16/19 09:47 Dose: 17 gm ASSESSMENT AND PLAN:59 year old man with a history of HTN, hyperlipidemia, CAD, CHF, type 2 DM, stage 3 CKD, BPH with bladder outlet obstruction, 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 With decompensated heart failure work-up shows worsening left ventricular ejection fraction Problem List - Problems (1) Heart failure, systolic, with acute decompensation Assessment/Plan: Improving on diuretics off milrinone drip, daily weight input output chart follow-up cardiology recommendations Code(s): I50.23 - ACUTE ON CHRONIC SYSTOLIC (CONGESTIVE) HEART FAILURE (2) Acute on chronic kidney failure Assessment/Plan: Stable renal functions follow-up BMP daily. Code(s): N17.9 - ACUTE KIDNEY FAILURE, UNSPECIFIED; N18.9 - CHRONIC KIDNEY DISEASE, UNSPECIFIED (3) CAD (coronary artery disease) Assessment/Plan: Asymptomatic stable EKG and troponin I no acute issue Code(s): I25.10 - ATHSCL HEART DISEASE OF [place] CORONARY ARTERY W/O ANG PCTRS (4) Diabetes Assessment/Plan: Type 2 diabetes mellitus optimize glycemic control Code(s): E11.9 - TYPE 2 DIABETES MELLITUS WITHOUT COMPLICATIONS (5) HTN (hypertension) Assessment/Plan: Well-controlled continue all home medication Code(s): I10 - ESSENTIAL (PRIMARY) HYPERTENSION (6) HLD (hyperlipidemia) Assessment/Plan: Continue statin Code(s): E78.5 - HYPERLIPIDEMIA, UNSPECIFIED (7) Pulmonary hypertension Assessment/Plan: Evaluate with pulmonary consult will evaluate for possibility of KELLEN Code(s): I27.20 - PULMONARY HYPERTENSION, UNSPECIFIED
[2019-09-17] MEDS ORDERED: PT OWN MED DRAWER 7, Y5N ONE (05:00)
[2019-09-17] MEDS: FUROSEMIDE 40 MG/4 ML INJECTABLE VIAL IVPUSH SCH (05:15)
[2019-09-17] MEDS: METOLAZONE 5 MG TABLET PO SCH (05:54)
[2019-09-17] MEDS: HEPARIN NA (PORCINE) 5,000 UNITS/ML 1ML VIAL SQ SCH ×3 (05:56→21:20)
[2019-09-17] MEDS: INSULIN SLIDING SCALE (NOVOLOG) 1 VIAL SQ SCH ×3 (06:03→21:21)
[2019-09-17 07:45] LABS: EOS % 2.6 % (0-4.5); HEMATOCRIT 28.7 % (35.4-49); HEMOGLOBIN 9.4 GM/dL (11.7-16.9); LYMPH % 0.2 % (8-40); MCH 25.5 pg (25.7-33.7); MCHC 32.7 g/dl (32.0-35.9); MEAN CELL VOLUME 77.9 fl (80-96); MONO % 24.3 % (3.8-10.2); NEUT % 72.9 % (42.8-82.8); PLATELET COUNT 524 K/MM3 (134-434); RBC 3.68 M/mm3 (4.00-5.60); RDW 14.8 % (11.9-15.9); WHITE BLOOD COUNT 7.7 K/mm3 (4.0-10.0)
[2019-09-17 08:23] LABS: BLOOD UREA NITROGEN 88.1 mg/dL (7-18); CALCIUM 8.7 mg/dL (8.5-10.1); CREATININE 3.4 mg/dL (0.55-1.3); POTASSIUM 4.5 mmol/L (3.5-5.1)
--- NOTE | 2019-09-17 08:33 | PN ---
Progress Note, Physician Chief Complaint: Patient feels improved - Current Medication List Current Medications: Active Medications Active Medications Acetaminophen (Tylenol -) 650 mg PO Q6H PRN PRN Reason: FEVER Last Admin: 09/03/19 15:25 Dose: 650 mg Amlodipine Besylate (Norvasc -) 10 mg PO DAILY [facility] Last Admin: 09/17/19 10:08 Dose: 10 mg Aspirin (Ecotrin -) 81 mg PO DAILY [facility] Last Admin: 09/17/19 10:08 Dose: 81 mg Benzocaine/Menthol (Cepacol Lozenge -) 1 each MM Q2H PRN PRN Reason: SORE THROAT Last Admin: 09/06/19 22:34 Dose: 1 each Bisacodyl (Dulcolax Suppository -) 10 mg RC PRN PRN PRN Reason: CONSTIPATION Guaifenesin/Codeine Phosphate (Robitussin Ac -) 10 ml PO Q8H PRN PRN Reason: COUGH Last Admin: 09/17/19 15:38 Dose: 10 ml Heparin Sodium (Porcine) (Heparin -) 5,000 unit SQ TID [facility] Last Admin: 09/17/19 13:44 Dose: 5,000 unit Insulin Aspart (Novolog Vial Sliding Scale -) 1 vial SQ [facility]; Protocol Last Admin: 09/17/19 06:03 Dose: 2 units Metoprolol Succinate (Toprol Xl -) 50 mg PO BID [facility] Last Admin: 09/17/19 10:08 Dose: 50 mg Polyethylene Glycol (Miralax (For Daily Use) -) 17 gm PO DAILY [facility] Last Admin: 09/17/19 10:08 Dose: 17 gm Torsemide (Demadex -) 100 mg PO DAILY [facility] - Objective Vital Signs: Vital Signs Temperature 97.9 F 09/17/19 05:11 Pulse Rate 69 09/17/19 05:11 Respiratory Rate 20 09/17/19 05:11 Blood Pressure 149/80 09/17/19 05:11 O2 Sat by Pulse Oximetry (%) 96 09/16/19 21:00 General: Middle-aged man, comfortable, not in distress HEENT; mucous membranes moist, no anemia, no jaundice, PERRLA, no nystagmus Neck: No JVD, supple, no bruit, thyroid palpably normal, normal carotid pulsations. Chest: Nontender, bilateral basal rales. CVS: S1-S2 regular no murmur/gallop/rub Abdomen: Nondistended, soft, bowel sounds present. 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 diuretics continue same follow-up cardiology recommendations Code(s): I50.23 - ACUTE ON CHRONIC SYSTOLIC (CONGESTIVE) HEART FAILURE (2) Acute on chronic kidney failure Assessment/Plan: Stable renal functions follow-up BMP daily. Code(s): N17.9 - ACUTE KIDNEY FAILURE, UNSPECIFIED; N18.9 - CHRONIC KIDNEY DISEASE, UNSPECIFIED (3) CAD (coronary artery disease) Assessment/Plan: Asymptomatic stable EKG and troponin I no acute issue Code(s): I25.10 - ATHSCL HEART DISEASE OF [place] CORONARY ARTERY W/O ANG PCTRS (4) Diabetes Assessment/Plan: Type 2 diabetes mellitus optimize glycemic control Code(s): E11.9 - TYPE 2 DIABETES MELLITUS WITHOUT COMPLICATIONS (5) HTN (hypertension) Assessment/Plan: Well-controlled continue all home medication Code(s): I10 - ESSENTIAL (PRIMARY) HYPERTENSION (6) HLD (hyperlipidemia) Assessment/Plan: Continue statin Code(s): E78.5 - HYPERLIPIDEMIA, UNSPECIFIED (7) Pulmonary hypertension Assessment/Plan: Evaluate with pulmonary consult will evaluate for possibility of KELLEN Code(s): I27.20 - PULMONARY HYPERTENSION, UNSPECIFIED
[2019-09-17] MEDS: POLYETHYLENE GLYCOL 3350 119 GM BTL PO SCH (10:08)
[2019-09-17] MEDS: amLODIPine BESYLATE 10 MG TABLET (FP) PO SCH (10:08)
[2019-09-17] MEDS: ASPIRIN COATED 81 MG TABLET.EC PO SCH (10:08)
--- NOTE | 2019-09-17 10:15 | PN ---
Progress Note (short form) - Note Progress Note: s: no sob cp palps dizzy; le edema better no cigs Current Medications Generic Name Dose Route Start Last Admin Trade Name Freq PRN Reason Stop Dose Admin Acetaminophen 650 mg 09/03/19 15:18 09/03/19 15:25 Tylenol - PO 650 mg Q6H PRN Administration FEVER Amlodipine Besylate 10 mg 09/01/19 10:00 09/17/19 10:08 Norvasc - PO 10 mg DAILY [facility] Administration Aspirin 81 mg 09/15/19 16:15 09/17/19 10:08 Ecotrin - PO 81 mg DAILY [facility] Administration Benzocaine/Menthol 1 each 09/04/19 15:59 09/06/19 22:34 Cepacol Lozenge - MM 1 each Q2H PRN Administration SORE THROAT Bisacodyl 10 mg 08/31/19 05:01 Dulcolax Suppository - RC PRN PRN CONSTIPATION Guaifenesin/Codeine Phosphate 10 ml 09/06/19 01:54 09/15/19 21:33 Robitussin Ac - PO 10 ml Q8H PRN Administration COUGH Heparin Sodium (Porcine) 5,000 unit 08/31/19 14:00 09/17/19 05:56 Heparin - SQ 5,000 unit TID [facility] Administration Insulin Aspart 1 vial 08/31/19 07:00 09/17/19 06:03 Novolog Vial Sliding Scale - SQ 2 units ACHS [facility] Administration Protocol Metoprolol Succinate 50 mg 09/02/19 10:00 09/17/19 10:08 Toprol Xl - PO 50 mg BID [facility] Administration Polyethylene Glycol 17 gm 09/12/19 13:45 09/17/19 10:08 Miralax (For Daily Use) - PO 17 gm DAILY [facility] Administration Torsemide 100 mg 09/18/19 10:00 Demadex - PO DAILY [facility] Vital Signs Period Temp Pulse Resp BP Sys/Garner Pulse Ox Last 24 Hr 97.7 F-98.2 F 65-72 18-20 137-149/64-80 96 Constitutional: Yes: No Distress, Calm Eyes: No: Sclera Icterus HENT: No: Nasal Congestion Cardiovascular: Yes: Regular Rate and Rhythm, JVD (almost to jaw), S1, S2, Other (PMI non diplaced). No: Gallop, Murmur Respiratory: Yes: CTA Bilaterally, Rales (bases). No: Accessory Muscle Use, Wheezes Gastrointestinal: Yes: Normal Bowel Sounds, Soft. No: Tenderness Musculoskeletal: Yes: Other (No kyphosis) Extremities: No: Cold, Cyanosis Edema:no Integumentary: No: Jaundice Neurological: Yes: Alert, Oriented (x3) Psychiatric: No: Agitated CBC, BMP 09/17/19 05:10 09/17/19 05:10 Assessment/Plan cath 02/2018 nonobstructive CAD, nl EF Echo 09/15: mild conc LVH; severe, global LV hypo/EF 30%. nl RV. mild-mod TR. RVSP 42. tele: SR 59M h/o DM, HTN, HLD, s/p L great toe amputation and partial 2nd toe amputation p/w toe ulcer and bilateral lower extremity swelling: Acute on chronic systolic HF exacerbation - BNP >79804 - echo here with severe decreased lvef, new since 2017 echo, likely NICM given recent unremarkable cath - lasix 40 iv bid here--held 09/04 given Creat up to 2.5--bun/creat up further - 09/05 milrinone started, edema improved with milrinone, lasix 100 mg BID and daily metolazone -09/15: vol status continues to improve, wt down, cr improving. cont same regimen. -09/17: bun/cr starting to rise, likely at baseline wt now. [facility]ak ldc iv lasix/ metolazone and start torsemide 100 po qd - monitor lytes, replete K/Mag to usual strict targets, daily weights - cont toprol - consider outpt sleep study - defer RAAS blockers until renal fxn stabilizes s/p diuresis - will need EF surveillance after 3 mo optimized GDMT--rec ICD at that time if EF not improved JASWINDER/CKD: - as above - Renal following HTN: - bp reasonable - cont bb - JORGE +/- spirono later, as above
[2019-09-17 10:32] LABS: ANISOCYTOSIS 1+; MACROCYTOSIS 0; OVALOCYTE 1+; PLATELET ESTIMATE INCREASED; TEAR DROP CELLS 1+
--- NOTE | 2019-09-17 11:05 | PN ---
Progress Note, Physician History of Present Illness: PULMONARY ALERT,FEELING BETTER,-RESP DISTRESS - Current Medication List Current Medications: Active Medications Acetaminophen (Tylenol -) 650 mg PO Q6H PRN PRN Reason: FEVER Last Admin: 09/03/19 15:25 Dose: 650 mg Amlodipine Besylate (Norvasc -) 10 mg PO DAILY [facility] Last Admin: 09/17/19 10:08 Dose: 10 mg Aspirin (Ecotrin -) 81 mg PO DAILY [facility] Last Admin: 09/17/19 10:08 Dose: 81 mg Benzocaine/Menthol (Cepacol Lozenge -) 1 each MM Q2H PRN PRN Reason: SORE THROAT Last Admin: 09/06/19 22:34 Dose: 1 each Bisacodyl (Dulcolax Suppository -) 10 mg RC PRN PRN PRN Reason: CONSTIPATION Guaifenesin/Codeine Phosphate (Robitussin Ac -) 10 ml PO Q8H PRN PRN Reason: COUGH Last Admin: 09/15/19 21:33 Dose: 10 ml Heparin Sodium (Porcine) (Heparin -) 5,000 unit SQ TID [facility] Last Admin: 09/17/19 05:56 Dose: 5,000 unit Insulin Aspart (Novolog Vial Sliding Scale -) 1 vial SQ ACHS [facility]; Protocol Last Admin: 09/17/19 06:03 Dose: 2 units Metoprolol Succinate (Toprol Xl -) 50 mg PO BID [facility] Last Admin: 09/17/19 10:08 Dose: 50 mg Polyethylene Glycol (Miralax (For Daily Use) -) 17 gm PO DAILY [facility] Last Admin: 09/17/19 10:08 Dose: 17 gm Torsemide (Demadex -) 100 mg PO DAILY [facility] - Objective Vital Signs: Vital Signs Temperature 97.9 F 09/17/19 05:11 Pulse Rate 69 09/17/19 05:11 Respiratory Rate 20 09/17/19 05:11 Blood Pressure 149/80 09/17/19 05:11 O2 Sat by Pulse Oximetry (%) 96 09/16/19 21:00 Constitutional: Yes: Well Nourished, Calm Eyes: Yes: WNL HENT: Yes: WNL Neck: Yes: WNL Cardiovascular: Yes: Regular Rate and Rhythm, S1, S2 Respiratory: Yes: Rales (BIBASILAR RALES) Gastrointestinal: Yes: Normal Bowel Sounds, Soft Extremities: Yes: WNL Edema: Yes (IMPROVING EDEMA) Labs: CBC, BMP 09/17/19 05:10 09/17/19 05:10 Problem List - Problems (1) Anasarca associated with disorder of kidney Code(s): N04.9 - NEPHROTIC SYNDROME WITH UNSPECIFIED MORPHOLOGIC CHANGES (2) CKD (chronic kidney disease) Code(s): N18.9 - CHRONIC KIDNEY DISEASE, UNSPECIFIED Qualifiers: Chronic kidney disease stage: unspecified stage Qualified Code(s): N18.9 - Chronic kidney disease, unspecified (3) Cough Code(s): R05 - COUGH (4) Edema Code(s): R60.9 - EDEMA, UNSPECIFIED Qualifiers: Edema type: generalized Qualified Code(s): R60.1 - Generalized edema (5) CHF (congestive heart failure) Code(s): I50.9 - HEART FAILURE, UNSPECIFIED Qualifiers: Heart failure type: unspecified Heart failure chronicity: chronic Qualified Code(s): I50.9 - Heart failure, unspecified (6) Anemia Code(s): D64.9 - ANEMIA, UNSPECIFIED (7) CAD (coronary artery disease) Code(s): I25.10 - ATHSCL HEART DISEASE OF [place] CORONARY ARTERY W/O ANG PCTRS (8) Diabetes Code(s): E11.9 - TYPE 2 DIABETES MELLITUS WITHOUT COMPLICATIONS (9) HLD (hyperlipidemia) Code(s): E78.5 - HYPERLIPIDEMIA, UNSPECIFIED (10) HTN (hypertension) Code(s): I10 - ESSENTIAL (PRIMARY) HYPERTENSION (11) Systolic and diastolic CHF w/reduced LV function, NYHA class 4 Code(s): I50.40 - UNSP COMBINED SYSTOLIC AND DIASTOLIC (CONGESTIVE) HRT FAIL Assessment/Plan IMP DYSPNEA/COUGH IMPROVED ACUTE ON CHRONIC SYSTOLIC/DIASTOLIC HF improving SEVERE LV SYSTOLIC DYSFUNCTION WITH SEVERE GLOBAL HYPOKINESIS ANASARCA improving ACUTE ON CHRONIC KIDNEY FAILURE PULMONARY HTN DM HLD H/O HEMOPTYSIS ANEMIA OSAS AHI 68 0N SLEEP SCREEN PLAN Diuretics DAILY WTS O2 NEEDED F/U CHEST X-RAYS MONITOR LYTES,RENAL FUNCTION MONITOR H+H FULL SLEEP STUDIES OUTPATIENT DR RUST Problem List - Problems (1) Anasarca associated with disorder of kidney Code(s): N04.9 - NEPHROTIC SYNDROME WITH UNSPECIFIED MORPHOLOGIC CHANGES (2) CKD (chronic kidney disease) Code(s): N18.9 - CHRONIC KIDNEY DISEASE, UNSPECIFIED Qualifiers: Chronic kidney disease stage: unspecified stage Qualified Code(s): N18.9 - Chronic kidney disease, unspecified (3) Cough Code(s): R05 - COUGH (4) Edema Code(s): R60.9 - EDEMA, UNSPECIFIED Qualifiers: Edema type: generalized Qualified Code(s): R60.1 - Generalized edema (5) CHF (congestive heart failure) Code(s): I50.9 - HEART FAILURE, UNSPECIFIED Qualifiers: Heart failure type: unspecified Heart failure chronicity: chronic Qualified Code(s): I50.9 - Heart failure, unspecified (6) Anemia Code(s): D64.9 - ANEMIA, UNSPECIFIED (7) CAD (coronary artery disease) Code(s): I25.10 - ATHSCL HEART DISEASE OF [place] CORONARY ARTERY W/O ANG PCTRS (8) Diabetes Code(s): E11.9 - TYPE 2 DIABETES MELLITUS WITHOUT COMPLICATIONS (9) HLD (hyperlipidemia) Code(s): E78.5 - HYPERLIPIDEMIA, UNSPECIFIED (10) HTN (hypertension) Code(s): I10 - ESSENTIAL (PRIMARY) HYPERTENSION (11) Systolic and diastolic CHF w/reduced LV function, NYHA class 4 Code(s): I50.40 - UNSP COMBINED SYSTOLIC AND DIASTOLIC (CONGESTIVE) HRT FAIL
[2019-09-17] MEDS: guaiFENesin/CODEINE 5 ML UNIT-DOSE CUPS PO PRN ×2 (15:38→23:07)
[2019-09-17] MEDS ORDERED: INSULIN (NOVOLOG) ASPART 100 UNITS/ML 10ML VIAL ONE (17:38)
--- NOTE | 2019-09-17 23:10 | PN ---
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 1. Anasarca 2. Diastolic HF 3. CKD stage 3 4. Metabolic acidosis 5. Anemia 6. Proteinuria Current Medications Acetaminophen (Tylenol -) 650 mg PO Q6H PRN PRN Reason: FEVER Last Admin: 09/03/19 15:25 Dose: 650 mg Amlodipine Besylate (Norvasc -) 10 mg PO DAILY [facility] Last Admin: 09/17/19 10:08 Dose: 10 mg Aspirin (Ecotrin -) 81 mg PO DAILY [facility] Last Admin: 09/17/19 10:08 Dose: 81 mg Benzocaine/Menthol (Cepacol Lozenge -) 1 each MM Q2H PRN PRN Reason: SORE THROAT Last Admin: 09/06/19 22:34 Dose: 1 each Bisacodyl (Dulcolax Suppository -) 10 mg RC PRN PRN PRN Reason: CONSTIPATION Guaifenesin/Codeine Phosphate (Robitussin Ac -) 10 ml PO Q8H PRN PRN Reason: COUGH Last Admin: 09/17/19 15:38 Dose: 10 ml Heparin Sodium (Porcine) (Heparin -) 5,000 unit SQ TID [facility] Last Admin: 09/17/19 21:20 Dose: 5,000 unit Insulin Aspart (Novolog Vial Sliding Scale -) 1 vial SQ ACHS [facility]; Protocol Last Admin: 09/17/19 21:21 Dose: Not Given Metoprolol Succinate (Toprol Xl -) 50 mg PO BID [facility] Last Admin: 09/17/19 21:20 Dose: 50 mg Polyethylene Glycol (Miralax (For Daily Use) -) 17 gm PO DAILY [facility] Last Admin: 09/17/19 10:08 Dose: 17 gm Torsemide (Demadex -) 100 mg PO DAILY [facility] Last Vital Signs Temp Pulse Resp BP Pulse Ox 97.3 F L 65 18 153/83 100 09/17/19 19:00 09/17/19 19:00 09/17/19 19:00 09/17/19 19:00 09/17/19 09:00 alert in nad Lungs clear heart reg Abd soft nontender Ext no edema CBC, BMP 09/17/19 05:10 09/17/19 05:10 Plan- same rx
[2019-09-18] MEDS: INSULIN SLIDING SCALE (NOVOLOG) 1 VIAL SQ SCH ×5 (06:40→22:43)
[2019-09-18] MEDS: HEPARIN NA (PORCINE) 5,000 UNITS/ML 1ML VIAL SQ SCH ×3 (06:40→22:18)
[2019-09-18 07:28] LABS: MAGNESIUM 2.9 mg/dL (1.8-2.4)
[2019-09-18 08:09] LABS: CREATININE 3.6 mg/dL (0.55-1.3); POTASSIUM 4.5 mmol/L (3.5-5.1)
[2019-09-18 08:10] LABS: CALCIUM 8.8 mg/dL (8.5-10.1)
--- NOTE | 2019-09-18 08:10 | PN ---
Progress Note, Physician Chief Complaint: Patient feels improved - Current Medication List Current Medications: Active Medications Acetaminophen (Tylenol -) 650 mg PO Q6H PRN PRN Reason: FEVER Last Admin: 09/03/19 15:25 Dose: 650 mg Amlodipine Besylate (Norvasc -) 10 mg PO DAILY [facility] Last Admin: 09/17/19 10:08 Dose: 10 mg Aspirin (Ecotrin -) 81 mg PO DAILY [facility] Last Admin: 09/17/19 10:08 Dose: 81 mg Benzocaine/Menthol (Cepacol Lozenge -) 1 each MM Q2H PRN PRN Reason: SORE THROAT Last Admin: 09/06/19 22:34 Dose: 1 each Bisacodyl (Dulcolax Suppository -) 10 mg RC PRN PRN PRN Reason: CONSTIPATION Guaifenesin/Codeine Phosphate (Robitussin Ac -) 10 ml PO Q8H PRN PRN Reason: COUGH Last Admin: 09/17/19 23:07 Dose: 10 ml Heparin Sodium (Porcine) (Heparin -) 5,000 unit SQ TID [facility] Last Admin: 09/18/19 06:40 Dose: 5,000 unit Insulin Aspart (Novolog Vial Sliding Scale -) 1 vial SQ [facility]; Protocol Last Admin: 09/18/19 06:40 Dose: 2 units Metoprolol Succinate (Toprol Xl -) 50 mg PO BID [facility] Last Admin: 09/17/19 21:20 Dose: 50 mg Polyethylene Glycol (Miralax (For Daily Use) -) 17 gm PO DAILY [facility] Last Admin: 09/17/19 10:08 Dose: 17 gm Torsemide (Demadex -) 100 mg PO DAILY [facility] - Objective Vital Signs: Vital Signs Temperature 98.0 F 09/18/19 03:00 Pulse Rate 66 09/18/19 07:00 Respiratory Rate 20 09/18/19 07:00 Blood Pressure 143/68 09/18/19 07:00 O2 Sat by Pulse Oximetry (%) 98 09/17/19 21:00 General: Middle-aged man, comfortable, not in distress HEENT; mucous membranes moist, no anemia, no jaundice, PERRLA, no nystagmus Neck: No JVD, supple, no bruit, thyroid palpably normal, normal carotid pulsations. Chest: Nontender, bilateral minimal basal rales. CVS: S1-S2 regular no murmur/gallop/rub Abdomen: Nondistended, soft, bowel sounds present. Extremities: Status post toes amputations, minimal edema., No calf tenderness, pulses present [employer]: AO X3 , no gross motor sensory deficit Problem List - Problems (1) Heart failure, systolic, with acute decompensation Assessment/Plan: Improved, yesterday switch to p.o. diuretics , rising BUN/creatinine we will hold p.o. diuretics today follow-up BMP tomorrow at present patient is euvolemic. Rest continue same follow-up cardiology recommendations Code(s): I50.23 - ACUTE ON CHRONIC SYSTOLIC (CONGESTIVE) HEART FAILURE (2) Acute on chronic kidney failure Assessment/Plan: I will rise of BUN/creatinine from baseline most likely overdiuresis will hold p.o. diuretics follow-up BMP in the morning Code(s): N17.9 - ACUTE KIDNEY FAILURE, UNSPECIFIED; N18.9 - CHRONIC KIDNEY DISEASE, UNSPECIFIED (3) CAD (coronary artery disease) Assessment/Plan: Asymptomatic stable EKG and troponin I no acute issue Code(s): I25.10 - ATHSCL HEART DISEASE OF [place] CORONARY ARTERY W/O ANG PCTRS (4) Diabetes Assessment/Plan: Type 2 diabetes mellitus optimize glycemic control Code(s): E11.9 - TYPE 2 DIABETES MELLITUS WITHOUT COMPLICATIONS (5) HTN (hypertension) Assessment/Plan: Well-controlled continue all home medication Code(s): I10 - ESSENTIAL (PRIMARY) HYPERTENSION (6) HLD (hyperlipidemia) Assessment/Plan: Continue statin Code(s): E78.5 - HYPERLIPIDEMIA, UNSPECIFIED (7) Pulmonary hypertension Assessment/Plan: Evaluate with pulmonary consult will evaluate for possibility of KELLEN Code(s): I27.20 - PULMONARY HYPERTENSION, UNSPECIFIED
[2019-09-18 09:17] LABS: BASO % 0.6 % (0-2.0); EOS % 3.1 % (0-4.5); HEMATOCRIT 29.2 % (35.4-49); HEMOGLOBIN 9.4 GM/dL (11.7-16.9); LYMPH % 16.1 % (8-40); MCH 25.2 pg (25.7-33.7); MEAN CELL VOLUME 78.8 fl (80-96); MONO % 9.1 % (3.8-10.2); NEUT % 71.1 % (42.8-82.8); PLATELET COUNT 531 K/MM3 (134-434); RBC 3.71 M/mm3 (4.00-5.60); RDW 15.2 % (11.9-15.9); WHITE BLOOD COUNT 8.5 K/mm3 (4.0-10.0)
--- NOTE | 2019-09-18 09:48 | PN ---
Progress Note (short form) - Note Progress Note: s: no sob cp palps dizzy; le edema better no cigs Current Medications Generic Name Dose Route Start Last Admin Trade Name Freq PRN Reason Stop Dose Admin Acetaminophen 650 mg 09/03/19 15:18 09/03/19 15:25 Tylenol - PO 650 mg Q6H PRN Administration FEVER Amlodipine Besylate 10 mg 09/01/19 10:00 09/17/19 10:08 Norvasc - PO 10 mg DAILY [facility] Administration Aspirin 81 mg 09/15/19 16:15 09/17/19 10:08 Ecotrin - PO 81 mg DAILY [facility] Administration Benzocaine/Menthol 1 each 09/04/19 15:59 09/06/19 22:34 Cepacol Lozenge - MM 1 each Q2H PRN Administration SORE THROAT Bisacodyl 10 mg 08/31/19 05:01 Dulcolax Suppository - RC PRN PRN CONSTIPATION Guaifenesin/Codeine Phosphate 10 ml 09/06/19 01:54 09/17/19 23:07 Robitussin Ac - PO 10 ml Q8H PRN Administration COUGH Heparin Sodium (Porcine) 5,000 unit 08/31/19 14:00 09/18/19 06:40 Heparin - SQ 5,000 unit TID [facility] Administration Insulin Aspart 1 vial 08/31/19 07:00 09/18/19 06:40 Novolog Vial Sliding Scale - SQ 2 units ACHS [facility] Administration Protocol Metoprolol Succinate 50 mg 09/02/19 10:00 09/17/19 21:20 Toprol Xl - PO 50 mg BID [facility] Administration Polyethylene Glycol 17 gm 09/12/19 13:45 09/17/19 10:08 Miralax (For Daily Use) - PO 17 gm DAILY [facility] Administration Vital Signs Temp 98.0 F 09/18/19 03:00 Pulse 66 09/18/19 07:00 Resp 20 09/18/19 07:00 BP 143/68 09/18/19 07:00 Pulse Ox 98 09/17/19 21:00 Intake & Output 09/17/19 09/17/19 09/18/19 11:59 23:59 11:59 Intake Total 400 Output Total 1200 1000 800 Balance -1200 -600 -800 Weight 186 lb 6.4 oz 185 lb 5 oz Intake: Oral 400 Output: Urine 1200 1000 800 Void 1200 1000 800 Other: Voiding Method Toilet Bowel Movement No No Weight Measurement Method Standing Scale Standing Scale Constitutional: Yes: No Distress, Calm Eyes: No: Sclera Icterus HENT: No: Nasal Congestion Cardiovascular: Yes: Regular Rate and Rhythm, JVD (almost to jaw), S1, S2, Other (PMI non diplaced). No: Gallop, Murmur Respiratory: Yes: CTA Bilaterally, Rales (bases). No: Accessory Muscle Use, Wheezes Gastrointestinal: Yes: Normal Bowel Sounds, Soft. No: Tenderness Musculoskeletal: Yes: Other (No kyphosis) Extremities: No: Cold, Cyanosis Edema:no Integumentary: No: Jaundice Neurological: Yes: Alert, Oriented (x3) Psychiatric: No: Agitated CBC, BMP 09/18/19 05:12 09/18/19 05:12 Assessment/Plan cath 02/2018 nonobstructive CAD, nl EF Echo 09/15: mild conc LVH; severe, global LV hypo/EF 30%. nl RV. mild-mod TR. RVSP 42. tele: SR 59M h/o DM, HTN, HLD, s/p L great toe amputation and partial 2nd toe amputation p/w toe ulcer and bilateral lower extremity swelling: Acute on chronic systolic HF exacerbation - BNP >91278 - echo here with severe decreased lvef, new since 2018 echo, likely NICM given recent unremarkable cath - lasix 40 iv bid here--held 09/04 given Creat up to 2.5--bun/creat up further - 09/05 milrinone started, edema improved with milrinone, lasix 100 mg BID and daily metolazone -09/15: vol status continues to improve, wt down, cr improving. cont same regimen. -09/17: bun/cr starting to rise, likely at baseline wt now. will dc iv lasix/ metolazone and start po diuretic -09/18: bun/cr still elevated, agree with holding diuretic and allowing bun/cr to improve - monitor lytes, replete K/Mag to usual strict targets, daily weights - cont toprol - consider outpt sleep study - defer RAAS blockers until renal fxn stabilizes s/p diuresis - will need EF surveillance after 3 mo optimized GDMT--rec ICD at that time if EF not improved JASWINDER/CKD: - as above - Renal following HTN: - bp reasonable - cont bb - JORGE +/- spirono later, as above
[2019-09-18] MEDS ORDERED: TORSEMIDE 100 MG TABLET PO SCH (10:00)
[2019-09-18] MEDS: ASPIRIN COATED 81 MG TABLET.EC PO SCH (10:07)
[2019-09-18] MEDS: amLODIPine BESYLATE 10 MG TABLET (FP) PO SCH (10:07)
[2019-09-18] MEDS: POLYETHYLENE GLYCOL 3350 119 GM BTL PO SCH (10:27)
--- NOTE | 2019-09-18 11:13 | PN ---
Progress Note, Physician History of Present Illness: pulmonary alert,comfortable,-resp distress - Current Medication List Current Medications: Active Medications Acetaminophen (Tylenol -) 650 mg PO Q6H PRN PRN Reason: FEVER Last Admin: 09/03/19 15:25 Dose: 650 mg Amlodipine Besylate (Norvasc -) 10 mg PO DAILY [facility] Last Admin: 09/18/19 10:07 Dose: 10 mg Aspirin (Ecotrin -) 81 mg PO DAILY [facility] Last Admin: 09/18/19 10:07 Dose: 81 mg Benzocaine/Menthol (Cepacol Lozenge -) 1 each MM Q2H PRN PRN Reason: SORE THROAT Last Admin: 09/06/19 22:34 Dose: 1 each Bisacodyl (Dulcolax Suppository -) 10 mg RC PRN PRN PRN Reason: CONSTIPATION Guaifenesin/Codeine Phosphate (Robitussin Ac -) 10 ml PO Q8H PRN PRN Reason: COUGH Last Admin: 09/17/19 23:07 Dose: 10 ml Heparin Sodium (Porcine) (Heparin -) 5,000 unit SQ TID [facility] Last Admin: 09/18/19 06:40 Dose: 5,000 unit Insulin Aspart (Novolog Vial Sliding Scale -) 1 vial SQ ACHS [facility]; Protocol Last Admin: 09/18/19 06:40 Dose: 2 units Metoprolol Succinate (Toprol Xl -) 50 mg PO BID [facility] Last Admin: 09/18/19 10:06 Dose: 50 mg Polyethylene Glycol (Miralax (For Daily Use) -) 17 gm PO DAILY [facility] Last Admin: 09/17/19 10:08 Dose: 17 gm - Objective Vital Signs: Vital Signs Temperature 98.0 F 09/18/19 03:00 Pulse Rate 66 09/18/19 07:00 Respiratory Rate 09/18/19 07:00 Blood Pressure 143/68 09/18/19 07:00 O2 Sat by Pulse Oximetry (%) 98 09/17/19 21:00 Constitutional: Yes: Well Nourished, Calm Eyes: Yes: WNL HENT: Yes: WNL Neck: Yes: WNL Cardiovascular: Yes: Regular Rate and Rhythm, S1, S2 Respiratory: Yes: Rales (few bibasilar rales) Gastrointestinal: Yes: Normal Bowel Sounds, Soft Extremities: Yes: WNL Edema: Yes (less edema bilaterally) Labs: CBC, BMP 09/18/19 05:12 09/18/19 05:12 Problem List - Problems (1) Anasarca associated with disorder of kidney Code(s): N04.9 - NEPHROTIC SYNDROME WITH UNSPECIFIED MORPHOLOGIC CHANGES (2) CKD (chronic kidney disease) Code(s): N18.9 - CHRONIC KIDNEY DISEASE, UNSPECIFIED Qualifiers: Chronic kidney disease stage: unspecified stage Qualified Code(s): N18.9 - Chronic kidney disease, unspecified (3) Cough Code(s): R05 - COUGH (4) Edema Code(s): R60.9 - EDEMA, UNSPECIFIED Qualifiers: Edema type: generalized Qualified Code(s): R60.1 - Generalized edema (5) CHF (congestive heart failure) Code(s): I50.9 - HEART FAILURE, UNSPECIFIED Qualifiers: Heart failure type: unspecified Heart failure chronicity: chronic Qualified Code(s): I50.9 - Heart failure, unspecified (6) Anemia Code(s): D64.9 - ANEMIA, UNSPECIFIED (7) CAD (coronary artery disease) Code(s): I25.10 - ATHSCL HEART DISEASE OF [place] CORONARY ARTERY W/O ANG PCTRS (8) Diabetes Code(s): E11.9 - TYPE 2 DIABETES MELLITUS WITHOUT COMPLICATIONS (9) HLD (hyperlipidemia) Code(s): E78.5 - HYPERLIPIDEMIA, UNSPECIFIED (10) HTN (hypertension) Code(s): I10 - ESSENTIAL (PRIMARY) HYPERTENSION (11) Systolic and diastolic CHF w/reduced LV function, NYHA class 4 Code(s): I50.40 - UNSP COMBINED SYSTOLIC AND DIASTOLIC (CONGESTIVE) HRT FAIL Assessment/Plan IMP DYSPNEA/COUGH IMPROVED ACUTE ON CHRONIC SYSTOLIC/DIASTOLIC HF improving SEVERE LV SYSTOLIC DYSFUNCTION WITH SEVERE GLOBAL HYPOKINESIS ANASARCA improving ACUTE ON CHRONIC KIDNEY FAILURE PULMONARY HTN DM HLD H/O HEMOPTYSIS ANEMIA OSAS AHI 68 0N SLEEP SCREEN PLAN DAILY WTS O2 NEEDED F/U CHEST X-RAYS MONITOR LYTES,RENAL FUNCTION MONITOR H+H FULL SLEEP STUDIES OUTPATIENT DR RUST Problem List - Problems (1) Anasarca associated with disorder of kidney Code(s): N04.9 - NEPHROTIC SYNDROME WITH UNSPECIFIED MORPHOLOGIC CHANGES (2) CKD (chronic kidney disease) Code(s): N18.9 - CHRONIC KIDNEY DISEASE, UNSPECIFIED Qualifiers: Chronic kidney disease stage: unspecified stage Qualified Code(s): N18.9 - Chronic kidney disease, unspecified (3) Cough Code(s): R05 - COUGH (4) Edema Code(s): R60.9 - EDEMA, UNSPECIFIED Qualifiers: Edema type: generalized Qualified Code(s): R60.1 - Generalized edema (5) CHF (congestive heart failure) Code(s): I50.9 - HEART FAILURE, UNSPECIFIED Qualifiers: Heart failure type: unspecified Heart failure chronicity: chronic Qualified Code(s): I50.9 - Heart failure, unspecified (6) Anemia Code(s): D64.9 - ANEMIA, UNSPECIFIED (7) CAD (coronary artery disease) Code(s): I25.10 - ATHSCL HEART DISEASE OF [place] CORONARY ARTERY W/O ANG PCTRS (8) Diabetes Code(s): E11.9 - TYPE 2 DIABETES MELLITUS WITHOUT COMPLICATIONS (9) HLD (hyperlipidemia) Code(s): E78.5 - HYPERLIPIDEMIA, UNSPECIFIED (10) HTN (hypertension) Code(s): I10 - ESSENTIAL (PRIMARY) HYPERTENSION (11) Systolic and diastolic CHF w/reduced LV function, NYHA class 4 Code(s): I50.40 - UNSP COMBINED SYSTOLIC AND DIASTOLIC (CONGESTIVE) HRT FAIL
--- NOTE | 2019-09-18 19:57 | PN ---
Progress Note (short form) - Note Progress Note: covering dr kike Soares 1. Anasarca 2. Diastolic HF 3. CKD stage 3 4. Metabolic acidosis 5. Anemia 6. Proteinuria DM BPH HLD Current Medications Acetaminophen (Tylenol -) 650 mg PO Q6H PRN PRN Reason: FEVER Last Admin: 09/03/19 15:25 Dose: 650 mg Amlodipine Besylate (Norvasc -) 10 mg PO DAILY [facility] Last Admin: 09/18/19 10:07 Dose: 10 mg Aspirin (Ecotrin -) 81 mg PO DAILY [facility] Last Admin: 09/18/19 10:07 Dose: 81 mg Benzocaine/Menthol (Cepacol Lozenge -) 1 each MM Q2H PRN PRN Reason: SORE THROAT Last Admin: 09/06/19 22:34 Dose: 1 each Bisacodyl (Dulcolax Suppository -) 10 mg RC PRN PRN PRN Reason: CONSTIPATION Guaifenesin/Codeine Phosphate (Robitussin Ac -) 10 ml PO Q8H PRN PRN Reason: COUGH Last Admin: 09/17/19 23:07 Dose: 10 ml Heparin Sodium (Porcine) (Heparin -) 5,000 unit SQ TID [facility] Last Admin: 09/18/19 15:27 Dose: 5,000 unit Insulin Aspart (Novolog Vial Sliding Scale -) 1 vial SQ ACHS [facility]; Protocol Last Admin: 09/18/19 17:50 Dose: 2 units Metoprolol Succinate (Toprol Xl -) 50 mg PO BID [facility] Last Admin: 09/18/19 10:06 Dose: 50 mg Polyethylene Glycol (Miralax (For Daily Use) -) 17 gm PO DAILY [facility] Last Admin: 09/18/19 10:27 Dose: 17 gm Last Vital Signs Temp Pulse Resp BP Pulse Ox 98.2 F 69 20 145/76 98 09/18/19 17:00 09/18/19 17:00 09/18/19 17:00 09/18/19 17:00 09/18/19 09:00 alert in nad Lungs clear heart reg Abd soft nontender Ext no edema CBC, BMP 09/18/19 05:12 09/18/19 05:12 CBC, BMP 09/17/19 05:10 09/17/19 05:10 IMP- CKD stable DM HTN good control Plan- continue same rx
[2019-09-19] MEDS: HEPARIN NA (PORCINE) 5,000 UNITS/ML 1ML VIAL SQ SCH ×2 (06:46→13:39)
[2019-09-19] MEDS: INSULIN SLIDING SCALE (NOVOLOG) 1 VIAL SQ SCH ×2 (06:47→12:31)
[2019-09-19 07:02] LABS: BASO % 0.9 % (0-2.0); EOS % 4.2 % (0-4.5); HEMATOCRIT 29.2 % (35.4-49); HEMOGLOBIN 9.5 GM/dL (11.7-16.9); LYMPH % 20.2 % (8-40); MCH 25.5 pg (25.7-33.7); MCHC 32.4 g/dl (32.0-35.9); MEAN CELL VOLUME 78.5 fl (80-96); MEAN PLT VOLUME 8.2 fl (7.5-11.1); MONO % 7.3 % (3.8-10.2); NEUT % 67.4 % (42.8-82.8); PLATELET COUNT 524 K/MM3 (134-434); RBC 3.72 M/mm3 (4.00-5.60); RDW 14.8 % (11.9-15.9); WHITE BLOOD COUNT 8.7 K/mm3 (4.0-10.0)
[2019-09-19 07:30] LABS: BLOOD UREA NITROGEN 90.9 mg/dL (7-18); CALCIUM 9.1 mg/dL (8.5-10.1); CREATININE 3.2 mg/dL (0.55-1.3); MAGNESIUM 2.8 mg/dL (1.8-2.4); POTASSIUM 4.8 mmol/L (3.5-5.1)
--- NOTE | 2019-09-19 08:17 | PN ---
Physical Exam: SUBJECTIVE: Patient seen and examined OBJECTIVE: Vital Signs Period Temp Pulse Resp BP Sys/Garner Pulse Ox Last 24 Hr 97.7 F-98.3 F 57-69 20-20 143-155/68-80 98 GENERAL: The patient is awake, alert, and fully oriented, in no acute distress. HEAD: Normal with no signs of trauma. EYES: PERRL, extraocular movements intact, sclera anicteric, conjunctiva clear. No ptosis. ENT: Ears normal, nares patent, oropharynx clear without exudates, moist mucous membranes. NECK: Trachea midline, full range of motion, supple. LUNGS: Breath sounds equal, clear to auscultation bilaterally, no wheezes, no crackles, no accessory muscle use. HEART: Regular rate and rhythm, S1, S2 without murmur, rub or gallop. ABDOMEN: Soft, nontender, nondistended, normoactive bowel sounds, no guarding, no rebound, no hepatosplenomegaly, no masses. EXTREMITIES: 2+ pulses, warm, well-perfused, no edema. NEUROLOGICAL: Cranial nerves II through XII grossly intact. Normal speech, gait not observed. PSYCH: Normal mood, normal affect. SKIN: Warm, dry, normal turgor, no rashes or lesions noted Laboratory Results - last 24 hr 09/18/19 09/18/19 09/18/19 05:12 12:16 17:30 WBC 8.5 RBC 3.71 L Hgb 9.4 L Hct 29.2 L MCV 78.8 L MCH 25.2 L MCHC 32.0 RDW 15.2 Plt Count 531 H MPV 8.0 Absolute Neuts (auto) 6.0 Neutrophils % 71.1 Lymphocytes % 16.1 D Monocytes % 9.1 Eosinophils % 3.1 Basophils % 0.6 D Nucleated RBC % 0 Sodium Potassium Chloride Carbon Dioxide Anion Gap BUN Creatinine Est GFR (CKD-EPI)AfAm Est GFR (CKD-EPI)NonAf POC Glucometer 165 182 Random Glucose Calcium Magnesium 09/18/19 09/19/19 09/19/19 22:25 05:40 05:40 WBC 8.7 RBC 3.72 L Hgb 9.5 L Hct 29.2 L MCV 78.5 L MCH 25.5 L MCHC 32.4 RDW 14.8 Plt Count 524 H MPV 8.2 Absolute Neuts (auto) 5.9 Neutrophils % 67.4 Lymphocytes % 20.2 D Monocytes % 7.3 Eosinophils % 4.2 Basophils % 0.9 Nucleated RBC % 0 Sodium 137 Potassium 4.8 Chloride 102 Carbon Dioxide 28 Anion Gap 7 L BUN 90.9 H Creatinine 3.2 H Est GFR (CKD-EPI)AfAm 23.46 Est GFR (CKD-EPI)NonAf 20.24 POC Glucometer 228 Random Glucose 109 H Calcium 9.1 Magnesium 2.8 H 09/19/19 05:40 WBC RBC Hgb Hct MCV MCH MCHC RDW Plt Count MPV Absolute Neuts (auto) Neutrophils % Lymphocytes % Monocytes % Eosinophils % Basophils % Nucleated RBC % Sodium Potassium Chloride Carbon Dioxide Anion Gap BUN Creatinine Est GFR (CKD-EPI)AfAm Est GFR (CKD-EPI)NonAf POC Glucometer 110 Random Glucose Calcium Magnesium Active Medications Generic Name Dose Route Start Last Admin Trade Name Freq PRN Reason Stop Dose Admin Acetaminophen 650 mg 09/03/19 15:18 09/03/19 15:25 Tylenol - PO 650 mg Q6H PRN Administration FEVER Amlodipine Besylate 10 mg 09/01/19 10:00 09/18/19 10:07 Norvasc - PO 10 mg DAILY [facility] Administration Aspirin 81 mg 09/15/19 16:15 09/18/19 10:07 Ecotrin - PO 81 mg DAILY [facility] Administration Benzocaine/Menthol 1 each 09/04/19 15:59 09/06/19 22:34 Cepacol Lozenge - MM 1 each Q2H PRN Administration SORE THROAT Bisacodyl 10 mg 08/31/19 05:01 Dulcolax Suppository - RC PRN PRN CONSTIPATION Guaifenesin/Codeine Phosphate 10 ml 09/06/19 01:54 09/17/19 23:07 Robitussin Ac - PO 10 ml Q8H PRN Administration COUGH Heparin Sodium (Porcine) 5,000 unit 08/31/19 14:00 09/19/19 06:46 Heparin - SQ 5,000 unit TID [facility] Administration Insulin Aspart 1 vial 08/31/19 07:00 09/19/19 06:47 Novolog Vial Sliding Scale - SQ Not Given ACHS [facility] Protocol Metoprolol Succinate 50 mg 09/02/19 10:00 09/18/19 22:18 Toprol Xl - PO 50 mg BID [facility] Administration Polyethylene Glycol 17 gm 09/12/19 13:45 09/18/19 10:27 Miralax (For Daily Use) - PO 17 gm DAILY [facility] Administration ASSESSMENT/PLAN: ATTENDING PHYSICIAN STATEMENT I saw and evaluated the patient. I reviewed the resident's note and discussed the case with the resident. I agree with the resident's findings and plan as documented. SUBJECTIVE: OBJECTIVE: ASSESSMENT AND PLAN:
[2019-09-19] MEDS: ASPIRIN COATED 81 MG TABLET.EC PO SCH (09:26)
[2019-09-19] MEDS: POLYETHYLENE GLYCOL 3350 119 GM BTL PO SCH (09:26)
[2019-09-19] MEDS: amLODIPine BESYLATE 10 MG TABLET (FP) PO SCH (09:26)
--- NOTE | 2019-09-19 10:23 | PN ---
Teaching Attending Note Name of Resident: Ariel Sun ATTENDING PHYSICIAN STATEMENT I saw and evaluated the patient. I reviewed the resident's note and discussed the case with the resident. I agree with the resident's findings and plan as documented. SUBJECTIVE: OBJECTIVE: Vital Signs Temperature 98.1 F 09/19/19 01:00 Pulse Rate 57 L 09/19/19 05:00 Respiratory Rate 20 09/19/19 05:00 Blood Pressure 143/70 09/19/19 05:00 O2 Sat by Pulse Oximetry (%) 98 09/18/19 09:00 General: Middle-aged man, comfortable, not in distress HEENT; mucous membranes moist, no anemia, no jaundice, PERRLA, no nystagmus Neck: No JVD, supple, no bruit, thyroid palpably normal, normal carotid pulsations. Chest: Nontender, bilateral basal rales. CVS: S1-S2 regular no murmur/gallop/rub Abdomen: Nondistended, soft, bowel sounds present. 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 With decompensated heart failure work-up shows worsening left ventricular ejection fraction Impression: Admitted with decompensated systolic heart failure with hypovolemia and hypoperfusion, responded to IV Lasix and milrinone therapy now euvolemic will be discharged home on Lasix 60 mg as per nephrology and cardiology recommendation patient will follow-up closely with nephrology and cardiology to repeat BMP. Problem List - Problems (1) Heart failure, systolic, with acute decompensation Assessment/Plan: Improved, yesterday switch to p.o. diuretics , rising BUN/creatinine we will hold p.o. diuretics today follow-up BMP tomorrow at present patient is euvolemic. Creatinine is 3.2, discussed with cardiology and nephrology consult agree to discharge on 60 mg p.o. Lasix follow-up BMP in few days in cardiology clinic, cardiology and nephrology consult both are in agreement about dose of Lasix. Code(s): I50.23 - ACUTE ON CHRONIC SYSTOLIC (CONGESTIVE) HEART FAILURE (2) Acute on chronic kidney failure Assessment/Plan: I will rise of BUN/creatinine from baseline most likely overdiuresis will hold p.o. creatinine improved to 3.2 cleared by pediatric physiatrist DC home on p.o. Lasix 40 mg daily. Code(s): N17.9 - ACUTE KIDNEY FAILURE, UNSPECIFIED; N18.9 - CHRONIC KIDNEY DISEASE, UNSPECIFIED (3) CAD (coronary artery disease) Assessment/Plan: Asymptomatic stable EKG and troponin I no acute issue Code(s): I25.10 - ATHSCL HEART DISEASE OF [place] CORONARY ARTERY W/O ANG PCTRS (4) Diabetes Assessment/Plan: Type 2 diabetes mellitus optimize glycemic control Code(s): E11.9 - TYPE 2 DIABETES MELLITUS WITHOUT COMPLICATIONS (5) HTN (hypertension) Assessment/Plan: Well-controlled continue all home medication Code(s): I10 - ESSENTIAL (PRIMARY) HYPERTENSION (6) HLD (hyperlipidemia) Assessment/Plan: Continue statin Code(s): E78.5 - HYPERLIPIDEMIA, UNSPECIFIED (7) Pulmonary hypertension Assessment/Plan: Evaluate with pulmonary consult will evaluate for possibility of KELLEN Code(s): I27.20 - PULMONARY HYPERTENSION, UNSPECIFIED
--- NOTE | 2019-09-19 10:30 | PN ---
Progress Note, Physician Chief Complaint: sob History of Present Illness: no orthopnea. no sob walking chaney. no palp, leg swelling c/o dry mouth yest localized CP near L breast, self-limited. also this AM ex cigs - Current Medication List Current Medications: Active Medications Acetaminophen (Tylenol -) 650 mg PO Q6H PRN PRN Reason: FEVER Last Admin: 09/03/19 15:25 Dose: 650 mg Amlodipine Besylate (Norvasc -) 10 mg PO DAILY [facility] Last Admin: 09/19/19 09:26 Dose: 10 mg Aspirin (Ecotrin -) 81 mg PO DAILY [facility] Last Admin: 09/19/19 09:26 Dose: 81 mg Benzocaine/Menthol (Cepacol Lozenge -) 1 each MM Q2H PRN PRN Reason: SORE THROAT Last Admin: 09/06/19 22:34 Dose: 1 each Bisacodyl (Dulcolax Suppository -) 10 mg RC PRN PRN PRN Reason: CONSTIPATION Guaifenesin/Codeine Phosphate (Robitussin Ac -) 10 ml PO Q8H PRN PRN Reason: COUGH Last Admin: 09/17/19 23:07 Dose: 10 ml Heparin Sodium (Porcine) (Heparin -) 5,000 unit SQ TID [facility] Last Admin: 09/19/19 06:46 Dose: 5,000 unit Insulin Aspart (Novolog Vial Sliding Scale -) 1 vial SQ ACHS [facility]; Protocol Last Admin: 09/19/19 06:47 Dose: Not Given Metoprolol Succinate (Toprol Xl -) 50 mg PO BID [facility] Last Admin: 09/19/19 09:26 Dose: 50 mg Polyethylene Glycol (Miralax (For Daily Use) -) 17 gm PO DAILY [facility] Last Admin: 09/19/19 09:26 Dose: 17 gm - Objective Vital Signs: Vital Signs Temperature 98.1 F 09/19/19 01:00 Pulse Rate 57 L 09/19/19 05:00 Respiratory Rate 09/19/19 05:00 Blood Pressure 143/70 09/19/19 05:00 O2 Sat by Pulse Oximetry (%) 98 09/18/19 09:00 Constitutional: Yes: No Distress, Calm Eyes: No: Sclera Icterus HENT: No: Nasal Congestion Cardiovascular: Yes: Regular Rate and Rhythm, S1, S2, Other (PMI non diplaced). No: JVD, Gallop, Murmur Respiratory: Yes: CTA Bilaterally. No: Accessory Muscle Use, Rales, Wheezes Gastrointestinal: Yes: Normal Bowel Sounds, Soft. No: Tenderness Musculoskeletal: Yes: Other (No kyphosis) Extremities: No: Cold, Cyanosis Edema: No Integumentary: No: Jaundice Neurological: Yes: Alert, Oriented (x3) Psychiatric: No: Agitated Labs: CBC, BMP 09/19/19 05:40 09/19/19 05:40 Assessment/Plan cath 02/2018 nonobstructive CAD, nl EF Echo 09/15: mild conc LVH; severe, global LV hypo/EF 30%. nl RV. mild-mod TR. RVSP 42. tele: 59M h/o DM, HTN, HLD, s/p L great toe amputation and partial 2nd toe amputation p/w toe ulcer and bilateral lower extremity swelling: Acute on chronic systolic HF exacerbation - BNP >56559 - echo here with severe decreased lvef, new since 2018 echo, likely NICM given recent unremarkable cath - 09/05 milrinone started, edema improved with milrinone, lasix 100 mg BID and daily metolazone--wt down 37 lbs - lasix 40 iv bid held 09/05 for rising bun/creat--improving gradually. - replete K/Mag to usual strict targets, daily weights - cont toprol - consider outpt sleep study - defer RAAS blockers until renal fxn stabilizes s/p diuresis - will need EF surveillance after 3 mo optimized GDMT--rec ICD at that time if EF not improved - needs f/u with us in 1 wk after discharge. OK FOR D/C OFF LASIX FOR NOW, UNTIL SEES US atypical CP: - episodes yest and today, nonexertional. - no signif CAD cath 02/2018. - check ECG, troponin today--if unrevealing, no inpatient w/u needed as low prob for CAD. - outpt f/u with us JASWINDER/CKD: - as above, worsened sec to cardiorenal syndrome HTN: - bp reasonable, though above tight targes - cont bb, amlodipine - JORGE +/- spirono later, once renal fxn stabilizes
[2019-09-19] MEDS ORDERED: INSULIN (NOVOLOG) ASPART 100 UNITS/ML 10ML VIAL ONE ×2 (12:09→13:02)
--- NOTE | 2019-09-19 12:54 | PN ---
Progress Note (short form) - Note Progress Note: PULMONARY States breathing is improving. No cough or chest pain. Wants to go home. Vital Signs Period Temp Pulse Resp BP Sys/Garner Pulse Ox Last 24 Hr 97.7 F-98.2 F 57-69 20-20 143-155/68-77 Gen: NAD at rest Heart: RRR Lung: scattered basilar rales Abd: soft, nontender Ext: trace edema CBC, BMP 09/19/19 05:40 09/19/19 05:40 Active Medications Acetaminophen (Tylenol -) 650 mg PO Q6H PRN PRN Reason: FEVER Last Admin: 09/03/19 15:25 Dose: 650 mg Amlodipine Besylate (Norvasc -) 10 mg PO DAILY [facility] Last Admin: 09/19/19 09:26 Dose: 10 mg Aspirin (Ecotrin -) 81 mg PO DAILY [facility] Last Admin: 09/19/19 09:26 Dose: 81 mg Benzocaine/Menthol (Cepacol Lozenge -) 1 each MM Q2H PRN PRN Reason: SORE THROAT Last Admin: 09/06/19 22:34 Dose: 1 each Bisacodyl (Dulcolax Suppository -) 10 mg RC PRN PRN PRN Reason: CONSTIPATION Guaifenesin/Codeine Phosphate (Robitussin Ac -) 10 ml PO Q8H PRN PRN Reason: COUGH Last Admin: 09/17/19 23:07 Dose: 10 ml Heparin Sodium (Porcine) (Heparin -) 5,000 unit SQ TID [facility] Last Admin: 09/19/19 06:46 Dose: 5,000 unit Insulin Aspart (Novolog Vial Sliding Scale -) 1 vial SQ ACHS [facility]; Protocol Last Admin: 09/19/19 12:31 Dose: 6 units Metoprolol Succinate (Toprol Xl -) 50 mg PO BID [facility] Last Admin: 09/19/19 09:26 Dose: 50 mg Polyethylene Glycol (Miralax (For Daily Use) -) 17 gm PO DAILY [facility] Last Admin: 09/19/19 09:26 Dose: 17 gm A/P Acute on Chronic Diastolic/Systolic Heart Failure Acute on Chronic Renal Failure Pulmonary HTN DM Hyperlipidemia Obstructive Sleep Apnea Anemia - lasix as needed - monitor urine output, creatinine - O2 to keep SpO2 >90% - sleep study as outpt
--- NOTE | 2019-09-19 13:59 | PN ---
Progress Note, Physician History of Present Illness: Pt seen and examined at bedside. He is awake and alert. He denies shortness of breath. - Current Medication List Current Medications: Active Medications Acetaminophen (Tylenol -) 650 mg PO Q6H PRN PRN Reason: FEVER Last Admin: 09/03/19 15:25 Dose: 650 mg Amlodipine Besylate (Norvasc -) 10 mg PO DAILY [facility] Last Admin: 09/19/19 09:26 Dose: 10 mg Aspirin (Ecotrin -) 81 mg PO DAILY [facility] Last Admin: 09/19/19 09:26 Dose: 81 mg Benzocaine/Menthol (Cepacol Lozenge -) 1 each MM Q2H PRN PRN Reason: SORE THROAT Last Admin: 09/06/19 22:34 Dose: 1 each Bisacodyl (Dulcolax Suppository -) 10 mg RC PRN PRN PRN Reason: CONSTIPATION Guaifenesin/Codeine Phosphate (Robitussin Ac -) 10 ml PO Q8H PRN PRN Reason: COUGH Last Admin: 09/17/19 23:07 Dose: 10 ml Heparin Sodium (Porcine) (Heparin -) 5,000 unit SQ TID [facility] Last Admin: 09/19/19 13:39 Dose: 5,000 unit Insulin Aspart (Novolog Vial Sliding Scale -) 1 vial SQ [facility]; Protocol Last Admin: 09/19/19 12:31 Dose: 6 units Metoprolol Succinate (Toprol Xl -) 50 mg PO BID [facility] Last Admin: 09/19/19 09:26 Dose: 50 mg Polyethylene Glycol (Miralax (For Daily Use) -) 17 gm PO DAILY [facility] Last Admin: 09/19/19 09:26 Dose: 17 gm - Objective Vital Signs: Vital Signs Temperature 98.1 F 09/19/19 01:00 Pulse Rate 57 L 09/19/19 05:00 Respiratory Rate 20 09/19/19 05:00 Blood Pressure 143/70 09/19/19 05:00 O2 Sat by Pulse Oximetry (%) 98 09/18/19 09:00 Constitutional: Yes: Calm Eyes: Yes: Conjunctiva Clear HENT: Yes: Atraumatic Cardiovascular: Yes: S1, S2 Respiratory: Yes: CTA Bilaterally Gastrointestinal: Yes: Normal Bowel Sounds, Soft Genitourinary: Yes: WNL Edema: Yes Edema: LLE: Trace, RLE: Trace Neurological: Yes: Oriented Psychiatric: Yes: Oriented Labs: CBC, BMP 09/19/19 05:40 09/19/19 05:40 Problem List - Problems (1) CKD (chronic kidney disease) Code(s): N18.9 - CHRONIC KIDNEY DISEASE, UNSPECIFIED Qualifiers: Chronic kidney disease stage: unspecified stage Qualified Code(s): N18.9 - Chronic kidney disease, unspecified (2) Edema Code(s): R60.9 - EDEMA, UNSPECIFIED Qualifiers: Edema type: generalized Qualified Code(s): R60.1 - Generalized edema (3) CHF (congestive heart failure) Code(s): I50.9 - HEART FAILURE, UNSPECIFIED Qualifiers: Heart failure type: unspecified Heart failure chronicity: chronic Qualified Code(s): I50.9 - Heart failure, unspecified Assessment/Plan Current Medications Generic Name Dose Route Start Last Admin Trade Name Freq PRN Reason Stop Dose Admin Acetaminophen 650 mg 09/03/19 15:18 09/03/19 15:25 Tylenol - PO 650 mg Q6H PRN Administration FEVER Amlodipine Besylate 10 mg 09/01/19 10:00 09/19/19 09:26 Norvasc - PO 10 mg DAILY [facility] Administration Aspirin 81 mg 09/15/19 16:15 09/19/19 09:26 Ecotrin - PO 81 mg DAILY [facility] Administration Benzocaine/Menthol 1 each 09/04/19 15:59 09/06/19 22:34 Cepacol Lozenge - MM 1 each Q2H PRN Administration SORE THROAT Bisacodyl 10 mg 08/31/19 05:01 Dulcolax Suppository - RC PRN PRN CONSTIPATION Guaifenesin/Codeine Phosphate 10 ml 09/06/19 01:54 09/17/19 23:07 Robitussin Ac - PO 10 ml Q8H PRN Administration COUGH Heparin Sodium (Porcine) 5,000 unit 08/31/19 14:00 09/19/19 13:39 Heparin - SQ 5,000 unit TID [facility] Administration Insulin Aspart 1 vial 08/31/19 07:00 09/19/19 12:31 Novolog Vial Sliding Scale - SQ 6 units ACHS [facility] Administration Protocol Metoprolol Succinate 50 mg 09/02/19 10:00 09/19/19 09:26 Toprol Xl - PO 50 mg BID [facility] Administration Polyethylene Glycol 17 gm 09/12/19 13:45 09/19/19 09:26 Miralax (For Daily Use) - PO 17 gm DAILY [facility] Administration Impression 1. Anasarca 2. Diastolic HF 3. CKD stage 3 4. Metabolic acidosis 5. Anemia 6. Proteinuria - nephrotic 7. positive lorraine Plan - renal function improving - diuretics had been held - can resume lasix tomorrow at 60 mg daily, he will see cardio later this week - called and discussed with cardio - discussed with medical team - low sodium diet - will need follow up for positive lorraine
--- NOTE | 2019-09-19 14:22 | DS ---
Physical Exam: SUBJECTIVE: Patient seen and examined at bed side , No acute events over night breathing is better , LE edema trending down off lasix for ne day will resume tomorrow with 60 po daily till he see his assistant golf course superintendent lost 27 pound since admission off milrinone drip resume asa as H/H s stable and no source of GI bleed OBJECTIVE: Vital Signs Period Temp Pulse Resp BP Sys/Garner Pulse Ox Last 24 Hr 98.1 F-98.2 F 57-69 20-20 143-153/68-77 PHYSICAL EXAM GENERAL: AAOx3 in NAD HEAD: NC/AT EYES: EOMI, Conjunctiva clear, sclera anicteric ENT: moist mucous membrane NECK: Supple, no JVD LUNGS: bibasilar crackles HEART: RRR, NSR, normal s1, s2, murmur no M/R/G ABDOMEN: Soft, ND, NT, +BS 4 Q, no CVA Tenderness LOWER EXTREMITIES: +2 edema, +2DP pulse, NEUROLOGICAL: No focal deficit. Normal speech. gait not observed. PSYCHIATRIC: Cooperative. Good eye contact. Appropriate mood and affect. SKIN: Warm, dry, LABS Laboratory Results - last 24 hr 09/18/19 09/18/19 09/19/19 17:30 22:25 05:40 WBC 8.7 RBC 3.72 L Hgb 9.5 L Hct 29.2 L MCV 78.5 L MCH 25.5 L MCHC 32.4 RDW 14.8 Plt Count 524 H MPV 8.2 Absolute Neuts (auto) 5.9 Neutrophils % 67.4 Lymphocytes % 20.2 D Monocytes % 7.3 Eosinophils % 4.2 Basophils % 0.9 Nucleated RBC % 0 Sodium Potassium Chloride Carbon Dioxide Anion Gap BUN Creatinine Est GFR (CKD-EPI)AfAm Est GFR (CKD-EPI)NonAf POC Glucometer 182 228 Random Glucose Calcium Magnesium Troponin I 09/19/19 09/19/19 09/19/19 05:40 05:40 11:29 WBC RBC Hgb Hct MCV MCH MCHC RDW Plt Count MPV Absolute Neuts (auto) Neutrophils % Lymphocytes % Monocytes % Eosinophils % Basophils % Nucleated RBC % Sodium 137 Potassium 4.8 Chloride 102 Carbon Dioxide 28 Anion Gap 7 L BUN 90.9 H Creatinine 3.2 H Est GFR (CKD-EPI)AfAm 23.46 Est GFR (CKD-EPI)NonAf 20.24 POC Glucometer 110 262 Random Glucose 109 H Calcium 9.1 Magnesium 2.8 H Troponin I 09/19/19 13:03 WBC RBC Hgb Hct MCV MCH MCHC RDW Plt Count MPV Absolute Neuts (auto) Neutrophils % Lymphocytes % Monocytes % Eosinophils % Basophils % Nucleated RBC % Sodium Potassium Chloride Carbon Dioxide Anion Gap BUN Creatinine Est GFR (CKD-EPI)AfAm Est GFR (CKD-EPI)NonAf POC Glucometer Random Glucose Calcium Magnesium Troponin I < 0.02 CBC, BMP 09/19/19 05:40 09/19/19 05:40 HOSPITAL COURSE: Date of Admission:08/30/19 Date of Discharge: 09/19/19 This is a 59 year old man with a history of HTN, hyperlipidemia, CAD, chronic diastolic heart failure, type 2 DM, stage 3 CKD, BPH with bladder outlet obstruction, 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 #Acute on Systolic CHF exacerbation. # Anasacra * increase IV lasix 100 mg BID, add metolazone per nephrology * Monitor I&O, weight * echo with EF 30%, with severe LV global hypokinesis * S/P melrinone drip * will need EF surveillance after 3 mo optimized GDMT--rec ICD at that time if EF not improved per cardiology * resume ASA as no GI bleeding #Stage 3 CKD * Creatinine 3.1 ...3.2...3.0 ...2.9. 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 * Previously diagnosed with iron deficiency * Hgb unchanged from 04/2019 * iron low irone and low ferritin * fobt negative * will need colonoscopy screening to R.o colon cancer as out pt #Hematuria, proteinuria, improved * Renal US results noted * urine protein to creatinine normal * Check PK, Hepatitis, HIV, RPR * PK positive and DSDNA negative unlikely lupus #HTN * Continue Norvasc, Toprol XL, Lasix 60 daily till you see your cardiology #Hyperlipidemia On no medication #CAD * Continue Toprol XL * Continue aspirin as no evidence of GI bleeding #Type 2 DM * cont glipizide * A1c 7.2 #BPH #Obesity with BMI 39.0, educated # KELLEN screening as out pt Minutes to complete discharge: 50 Discharge Summary Problems reviewed: Yes Reason For Visit: COUGH Current Active Problems Acute on chronic kidney failure (Chronic) CAD (coronary artery disease) (Chronic) CHF (congestive heart failure) (Chronic) CKD (chronic kidney disease) (Chronic) Constipation (Chronic) Diabetes (Chronic) HLD (hyperlipidemia) (Chronic) HTN (hypertension) (Chronic) Heart failure, systolic, with acute decompensation (Chronic) Pulmonary hypertension (Chronic) Systolic and diastolic CHF w/reduced LV function, NYHA class 4 (Chronic) Condition: Stable - Instructions Diet, Activity, Other Instructions: you presented to the hospital due to shortness of breath due to heart failure and you were treated with diuretics and your symptoms has improved . You will be send home with close follow up with your assistant golf course superintendent Dr Orellana Alone within next 3 days Please follow up with your kidney doctors within one week please follow up with lung doctor Dr Alvarado within one week for sleep study You lasix dose changed for now to 60 mg oral daily you metoprolol dose has increased to 50 mg twice daily please resume all other home medication as before admission please weight your self daily and if you notice sever increase if you weight or worsening edema please call your assistant golf course superintendent or your kidney doctor If you develop fever, chills , chest pain shortness of breath please return to emergency room. Referrals: Kervin Alvarado MD [Staff Physician] - 1 Week Brady Orellana MD [Staff Physician] - 1 Week Judy Aiken MD [Staff Physician] - 1 Week Disposition: HOME - Home Medications Comprehensive Discharge Medication List: Ambulatory Orders Amlodipine Besylate [Norvasc -] 10 mg PO DAILY tablet 02/21/19 Aspirin [ASA -] 81 mg PO DAILY tab.chew 02/21/19 Docusate Sodium [Colace -] 100 mg PO TID capsule 02/21/19 Glipizide [Glipizide ER] 10 mg PO DAILY #60 tab.er.24 02/21/19 Acetaminophen [Tylenol .Regular Strength -] 650 mg PO Q6H PRN tablet 05/21/19 Bisacodyl Suppository [Dulcolax Suppository -] 10 mg [place] PRN PRN supp.rect 05/21 Furosemide [Lasix -] 40 mg PO BID@0600,1400 tablet 05/21/19 Polyethylene Glycol 3350 [Miralax 119 gm Btl -] 17 gm PO BID bottle 05/21/19 Furosemide [Lasix] 60 mg PO DAILY #60 tablet 09/19/19 Metoprolol Succinate [Toprol XL -] 50 mg PO BID #60 tab.sr.24h 09/19/19 This patient is new to me today: No Emergency Visit: Yes ED Registration Date: 08/30/19 Care time: The patient presented to the Emergency Department on the above date and was hospitalized for further evaluation of their emergent condition. Critical Care patient: No - Discharge Referral Referred to [facility] Med P.C.: No ATTENDING PHYSICIAN STATEMENT I saw and evaluated the patient. I reviewed the resident's note and discussed the case with the resident. I agree with the resident's findings and plan as documented. SUBJECTIVE: OBJECTIVE: ASSESSMENT AND PLAN:
--- NOTE | 2019-09-19 14:27 | EKG ---
Test Reason : Blood Pressure : / mmHG Vent. Rate : 061 BPM Atrial Rate : 061 BPM P-R Int : 230 ms QRS Dur : 108 ms QT Int : 400 ms P-R-T Axes : 019 -31 -21 degrees QTc Int : 402 ms SINUS RHYTHM WITH 1ST DEGREE A-V BLOCK LEFT AXIS DEVIATION VOLTAGE CRITERIA FOR LEFT VENTRICULAR HYPERTROPHY NONSPECIFIC T WAVE ABNORMALITY ABNORMAL ECG WHEN COMPARED WITH ECG OF 30-AUG-2019 15:37, SD INTERVAL HAS INCREASED INCOMPLETE RIGHT BUNDLE BRANCH BLOCK IS NO LONGER PRESENT Confirmed by Tatum Veloz ([id number]) on 09/19/2019 2:27:05 PM [facility] Confirmed By:Tatum Veloz
[2019-09-19 15:21] VITALS: BP 142/76; PULSE 62; TEMP 98
[2019-09-19] MEDS ORDERED: guaiFENesin/CODEINE 10 ML UNIT-DOSE CUPS PO PRN (16:17)
[2019-09-19] MEDS ORDERED: guaiFENesin/CODEINE 5 ML UNIT-DOSE CUPS PO PRN (16:37)
== END 2019-09-19 15:49 | disposition home or self-care (01) | DRG 469 ==
LOC: JER 13:48 → JERBED 18:59 → J4S 08-31 14:43 → J4W 09-05 19:01
PROVIDERS: ADMIT Internal Medicine; ATTEND Internal Medicine
DX: N17.9 Acute kidney failure, unspecified (principal); I13.0 Hypertensive heart and chronic kidney disease with heart failure and stage 1 through stage 4 chronic kidney disease, or unspecified chronic kidney disease; I25.10 Atherosclerotic heart disease of native coronary artery without angina pectoris; E78.00 Pure hypercholesterolemia, unspecified; R60.1 Generalized edema; N40.1 Benign prostatic hyperplasia with lower urinary tract symptoms; N13.8 Other obstructive and reflux uropathy; E11.22 Type 2 diabetes mellitus with diabetic chronic kidney disease; N18.3 Chronic kidney disease, stage 3 (moderate); R31.9 Hematuria, unspecified; E87.5 Hyperkalemia; E66.9 Obesity, unspecified; D50.9 Iron deficiency anemia, unspecified; Z68.32 Body mass index [BMI] 32.0-32.9, adult; E11.42 Type 2 diabetes mellitus with diabetic polyneuropathy; E87.2 Acidosis; G47.33 Obstructive sleep apnea (adult) (pediatric); I27.20 Pulmonary hypertension, unspecified; E83.42 Hypomagnesemia; N04.9 Nephrotic syndrome with unspecified morphologic changes; Z89.422 Acquired absence of other left toe(s); I50.43 Acute on chronic combined systolic (congestive) and diastolic (congestive) heart failure
CPT/HCPCS: 36415; 71045-TC-FY; 71046-TC-FY; 71250-TC; 76700-TC; 80048; 80053; 80074; 81003; 82272; 82565; 82570; 82728; 82962; 83036; 83520; 83540; 83550; 83735; 83880; 84100; 84155; 84156; 84165; 84300; 84484; 85025; 85027; 86038; 86160; 86162; 86225; 86256; 86850; 86900; 86901; 87086; 87389; 93005; 93010; 93306-TC; 99283-25; J1644

== ENCOUNTER 2020-02-07 16:09 | Inpatient (IN) | payer OTHER ==
--- NOTE | 2020-02-07 16:29 | PDOC ---
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 Currently on Lasix. Denies chest pain, mild sob on exertion, also states mild soreness over kidney area, no other complaints Exam: vss, trace edema amarilys' Plan: labs, cxr, iv, diagnostic cardiac sonographer, ekg Discharge Disposition - Diagnosis Abnormal laboratory test result - Referrals - Patient Instructions - Post Discharge Activity
--- NOTE | 2020-02-07 17:10 | PDOC ---
History of Present Illness - General Chief Complaint: Abnormal Lab Results (Outside) Stated Complaint: SENT BY Time Seen by Provider: 02/07/20 16:25 History Source: Patient Exam Limitations: No Limitations - History of Present Illness Initial Comments: 02/07/20 17:04 PCP: Lana Cards: Dr. Haq HPI: 59yo M pmh CKD, DM2, HTN and CHF (several admissions over the past year for CHF exacerbation, on Lasix) sent in by principal bioinformatics specialist (sent 02/01/2020, delayed arrival because he had "other things I needed to do") for JASWINDER, hyperkalemia, with peaked T-waves. Patient notes 1 month history of shortness of breath, dyspnea on exertion and swelling to bilateral feet. Also endorses bilateral mid- lower back pain over this same period. Denies dysuria, frequency, discolored or foul smelling urine. Comes with [facility] sheet indicating 01/31/2020 Creatinine was 3.53, Potassium was 6.1 and a note that he is on Lasix with progressively worsening edema, JASWINDER, and 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 Attached EKG demonstrates peaked T waves in V2 and V3. Denies chest pain, fevers, chills, nausea, vomiting, lightheadedness, palpitations, syncope. Reports only the back pain bothers him. All: Pantoprazole PMH: As above PSH: Denies Past History - Travel History Traveled outside of the country in the last 30 days: No Close contact w/someone who was outside of country & ill: No - Medical History Allergies/Adverse Reactions: Allergies Allergy/AdvReac Type Severity Reaction Status Date / Time pantoprazole AdvReac Mild Vomiting Verified 02/07/20 16:25 Home Medications: Ambulatory Orders Amlodipine Besylate [Norvasc -] 10 mg PO DAILY tablet 02/21/19 Aspirin [ASA -] 81 mg PO DAILY tab.chew 02/21/19 Glipizide [Glipizide ER] 10 mg PO DAILY #60 tab.er.24 02/21/19 Furosemide [Lasix -] 40 mg PO BID@0600,1400 tablet 05/21/19 Metoprolol Succinate [Toprol XL -] 50 mg PO BID #60 tab.sr.24h 09/19/19 Hydralazine HCl 25 mg PO DAILY 02/07/20 Anemia: Yes Asthma: No Cancer: No Cardiac Disorders: Yes (CAD) CVA: No COPD: No CHF: Yes Dementia: No Diabetes: Yes GI Disorders: No Disorders: No HTN: Yes Hypercholesterolemia: Yes Liver Disease: No Seizures: No Thyroid Disease: No - Surgical History Abdominal Surgery: No Appendectomy: No Cardiac Surgery: Yes (cardiac cath) Cholecystectomy: No Lung Surgery: No Neurologic Surgery: No Orthopedic Surgery: Yes (left 1st toe amp, left 2nd toe partial amp) - Psycho-Social/Smoking History Smoking History: Never smoked Have you smoked in the past 12 months: No Number of Cigarettes Smoked Daily: 20 If you are a former smoker, when did you quit?: 20 years Information on smoking cessation initiated: No - Substance Abuse Hx (Audit-C & DAST Scrn) How often the patient has a drink containing alcohol: Never Score: In Men: 4 or > Positive; In Women: 3 or > Positive: 0 Screen Result (Pos requires Nsg. Audit-10AR): Negative Review of Systems - Review of Systems Able to Perform ROS?: Yes Is the patient limited Macedonian proficient: Yes Constitutional: No: Fever HEENTM: No: Nose Congestion, Throat Pain, Throat Swelling Respiratory: Yes: Shortness of Breath, SOB with Exertion. No: Cough Cardiac (ROS): Yes: Edema. No: Chest Pain, Irregular Heart Rate, Lightheadedness, Palpitations, Syncope, Chest Tightness ABD/GI: No: Constipated, Diarrhea, Nausea, Vomiting : No: Burning, Dysuria, Discharge, Frequency Musculoskeletal: Yes: Back Pain (mid/upper lower back). No: Muscle Pain, Muscle Weakness Integumentary: No: Pallor, Pruritus, Rash Neurological: No: Headache, Numbness, Tingling, Weakness Psychiatric: No: Stressors, Change in Appetite Endocrine: No: Increased Thirst, Increased Urine Hematologic/Lymphatic: No: Anemia, Blood Clots, Easy Bleeding All Other Systems: Reviewed and Negative *Physical Exam - Vital Signs Last Vital Signs Temp Pulse Resp BP Pulse Ox 97.8 F 74 16 154/70 99 02/07/20 16:27 02/07/20 16:27 02/07/20 16:27 02/07/20 16:27 02/07/20 16:27 - Physical Exam 02/07/20 17:08 Vitals reviewed, Hypertensive, otherwise AFVSS GEN: Well appearing, appears stated age, NAD, comfortable. AAOx3. HEENT: NCAT, EOMI, PERRL. Sclera anicteric, non-injected. No facial asymmetry. Moist mucous membranes. Normal voice. Trachea midline. CV: RRR, S1/S2, no murmurs / rubs / gallops appreciated. LUNG: CTABL, normal work of breathing. No wheezes, rales, rhonchi. No cough. Speaking full sentences. GI: Soft, NTND, +BS, no guarding, no rebound. No masses. EXTREMITIES: 2+ distal pulses. No clubbing / cyanosis. 2+ pitting edema bilateral LE. No gross deformity in any extremity. SKIN: Warm, dry, no rashes appreciated, non-jaundiced. PSYCH: Normal mood and affect. Cooperative and appropriate. NEURO: CN grossly intact. Moving all extremities well. Normal strength and sensation grossly. ED Treatment Course - LABORATORY CBC & Chemistry Diagram: 02/08/20 06:13 02/08/20 06:13 Medical Decision Making - Medical Decision Making 02/07/20 17:08 59yo M pmh CKD, DM2, HTN and CHF (several admissions over the past year for CHF exacerbation, on Lasix) sent in by principal bioinformatics specialist (sent 02/01/2020, delayed arriva l because he had "other things I needed to do") for JASWINDER, hyperkalemia, with peaked T-waves. Concerning for failure of diuretic therapy (worsening edema, suggestion of pulmonary edema, JASWINDER, hyperkalemia), electrolyte disturbances, worsening renal function. Will be admitted for diuresis, electrolyte management / cardiac monitoring, medication adjustment. - CBC, CMP, Cardiac profile, Coags, Mg, UA. UCx - EKG, CXR - Calcium Gluconate given based on peaked T waves, hyperkalemia from 02/01/20 - Additional medication administration pending repeat lab work and EKG 02/07/20 18:19 - Anemia, Hgb 7.4 - Elevated BNP 13K - JASWINDER Cr 3.1 - CXR with venous congestion vs PNA - UA without UTI Dispo: Admit Tele 02/07/20 19:05 Patient with CHF exacerbation, JASWINDER, hyperkalemia for diuresis and medication management [employer] has been sent, patient to be endorsed to inpatient team S/p 40mg Lasix IV Patient endorsed to Dr. Krishnan Discharge - Discharge Information Problems reviewed: Yes Clinical Impression/Diagnosis: Abnormal laboratory test result - Follow up/Referral - Patient Discharge Instructions - Post Discharge Activity
[2020-02-07] MEDS ORDERED: CALCIUM GLUCONATE 10% - 1,000 MG/10 ML VIAL IVPUSH ONE (17:14)
[2020-02-07] MEDS ORDERED: CALCIUM CHLORIDE 1 GM/10 ML *DISP.SYRIN ONE (17:29)
[2020-02-07 17:30] LABS: BASO % 0.8 % (0-2.0); EOS % 7.3 % (0-4.5); HEMATOCRIT 22.9 % (35.4-49); HEMOGLOBIN 7.4 GM/dL (11.7-16.9); LYMPH % 14.7 % (8-40); MCH 27.2 pg (25.7-33.7); MCHC 32.2 g/dl (32.0-35.9); MEAN CELL VOLUME 84.4 fl (80-96); MEAN PLT VOLUME 7.9 fl (7.5-11.1); MONO % 7.5 % (3.8-10.2); NEUT % 69.7 % (42.8-82.8); PLATELET COUNT 237 K/MM3 (134-434); RBC 2.71 M/mm3 (4.00-5.60); RDW 15.2 % (11.9-15.9); WHITE BLOOD COUNT 5.9 K/mm3 (4.0-10.0)
[2020-02-07 17:35] LABS: EPI CELLS 6 /uL (0-25.1); HYALINE CASTS 1 /uL (0-3.1); PH,URINE 5.5 (5.0-8.0); URINE APPEARANCE CLEAR; URINE BACTERIA 5 /uL (0-1359); URINE BILIRUBIN NEGATIVE (NEGATIVE); URINE COLOR YELLOW; URINE GLUCOSE (UA) TRACE (NEGATIVE); URINE KETONE NEGATIVE (NEGATIVE); URINE LEUK ESTERASE NEGATIVE (NEGATIVE); URINE NITRITE NEGATIVE (NEGATIVE); URINE PROTEIN 3+ (NEGATIVE); URINE RBC 44 /uL (0-23.9); URINE WBC 10 /uL (0-25.8)
[2020-02-07 17:38] LABS: INR 1.04 (0.83-1.09); PROTHROMBIN TIME (PATIENT) 12.3 SEC (9.7-13.0)
[2020-02-07 18:21] LABS: ALBUMIN 2.8 g/dl (3.4-5.0); ALK PHOS 137 U/L (45-117); ANION GAP 8 MMOL/L (8-16); BILIRUBIN,TOTAL 0.3 mg/dL (0.2-1); BLOOD UREA NITROGEN 53.4 mg/dL (7-18); CALCIUM 7.8 mg/dL (8.5-10.1); CHLORIDE 115 mmol/L (98-107); CO2 17 mmol/L (21-32); CREATININE 3.1 mg/dL (0.55-1.3); GLUCOSE,RANDOM 114 mg/dL (74-106); LIPASE 64 U/L (73-393); MAGNESIUM 2.2 mg/dL (1.8-2.4); N-TERMINAL BNP 13194.9 pg/ml (5-125); POTASSIUM 5.3 mmol/L (3.5-5.1); SGOT/AST 16 U/L (15-37); SGPT/ALT 15 U/L (13-61); SODIUM 140 mmol/L (136-145); TOT PROT 6.5 g/dl (6.4-8.2)
[2020-02-07] MEDS ORDERED: FUROSEMIDE 40 MG/4 ML INJECTABLE VIAL IVPUSH ONE (19:04)
[2020-02-07] MEDS ORDERED: FUROSEMIDE 40 MG/4 ML INJECTABLE VIAL ONE (20:03)
[2020-02-07] MEDS ORDERED: amLODIPine BESYLATE 5 MG TABLET (FP) ONE (21:15)
[2020-02-07] MEDS ORDERED: hydrALAZINE HCL 25 MG TABLET (FP) ONE (21:16)
[2020-02-07] MEDS: amLODIPine BESYLATE 10 MG TABLET (FP) PO SCH (21:18)
[2020-02-07] MEDS: hydrALAZINE HCL 25 MG TABLET (FP) PO SCH (21:18)
--- NOTE | 2020-02-07 21:23 | HP ---
<Kervin Dawson - Last Filed: 02/08/20 02:58> CHIEF COMPLAINT: Sent by [employer] PCP: Dr. Pollack HISTORY OF PRESENT ILLNESS: 59 y.o. Wallisian speaking M PMHx CKD stage 3, DM, HTN, CHF (several admission most recent in July of 2019), BPH, HLD. Presents to the ED after being sent by his insurance claims supervisor on 02/01/2020 due to JASWINDER, hyperkalemia and peaked t-waves, he stated his insurance claims supervisor told him his Lasix is no longer working and should come in to the hospital for further treatment. He brought lab work from 01/31/2020 with him showing a Cr of 3.53 and potassium of 6.1. Patient stated he did not come in sooner because he has been busy. Patient was previously admitted to [facility] on 08/31/19 due to SOB and anasarca secondary to CHF exacerbation. At the time CT showed small patchy alveolar and interstitial opacities, along with an Echo showing an EF of 30% with severe LV global hyokinesis. He was treated with Lasix 100mg BID and metolazone per nephrology recommendation. At baseline he is able to walk for 5minutes but stated he could only walk for 3 mins today before becoming short of breath. He noticed his legs have become more swollen and has mild calf tenderness. Patient stated he has been feeling more tired and sleepy than usual, has been having moderate back pain and has been producing minimal urine. He denies SOB, dizziness, palpitations, headache, N/V/D. No recent travel or sick contacts. States he has been taking all his medications as prescribed. Quit smoking 14 years ago. 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 ER course was notable for: (1) Calcium Gluconate (2) CXR (3) EKG Recent Travel: None PAST MEDICAL HISTORY: None PAST SURGICAL HISTORY: None Social History: Smoking: None Alcohol: None Drugs: None Allergies pantoprazole Adverse Reaction (Mild, Verified 02/07/20 16:25) Vomiting Acute kidney injury HOME MEDICATIONS: Home Medications Medication Instructions Recorded Amlodipine Besylate [Norvasc -] 10 mg PO DAILY tablet 02/21/19 Aspirin [ASA -] 81 mg PO DAILY tab.chew 02/21/19 Glipizide [Glipizide ER] 10 mg PO DAILY #60 tab.er.24 02/21/19 Furosemide [Lasix -] 40 mg PO BID@0600,1400 tablet 05/21/19 Metoprolol Succinate [Toprol XL -] 50 mg PO BID #60 tab.sr.24h 09/19/19 Hydralazine HCl 25 mg PO DAILY 02/07/20 REVIEW OF SYSTEMS CONSTITUTIONAL: Malaise Absent: fever, chills, diaphoresis, generalized weakness, loss of appetite, weight change HEENT: Absent: rhinorrhea, nasal congestion, throat pain, throat swelling, difficulty swallowing, mouth swelling, ear pain, eye pain, visual changes CARDIOVASCULAR: Absent: chest pain, syncope, palpitations, irregular heart rate, lightheadedness, peripheral edema RESPIRATORY: Absent: cough, shortness of breath, dyspnea with exertion, orthopnea, wheezing, stridor, hemoptysis GASTROINTESTINAL: Absent: abdominal pain, abdominal distension, nausea, vomiting, diarrhea, constipation, melena, hematochezia GENITOURINARY: Absent: dysuria, frequency, urgency, hesitancy, hematuria, flank pain, genital pain MUSCULOSKELETAL: Back pain Absent: myalgia, arthralgia, joint swelling, neck pain SKIN: Absent: rash, itching, pallor HEMATOLOGIC/IMMUNOLOGIC: Absent: easy bleeding, easy bruising, lymphadenopathy, frequent infections ENDOCRINE: Absent: unexplained weight gain, unexplained weight loss, heat intolerance, cold intolerance NEUROLOGIC: Absent: headache, focal weakness or paresthesias, dizziness, unsteady gait, seizure, mental status changes, bladder or bowel incontinence PSYCHIATRIC: Absent: anxiety, depression, suicidal or homicidal ideation, hallucinations. PHYSICAL EXAMINATION Vital Signs - 24 hr 02/07/20 02/07/20 02/07/20 16:27 16:35 17:57 Temperature 97.8 F Pulse Rate 74 Pulse Rate [ 71 Right Radial] Respiratory 16 19 Rate Blood Pressure 154/70 Blood Pressure 170/94 [Right Arm] O2 Sat by Pulse 99 95 98 Oximetry (%) 02/07/20 21:18 Temperature Pulse Rate Pulse Rate [ Right Radial] Respiratory Rate Blood Pressure Blood Pressure 197/93 H [Right Arm] O2 Sat by Pulse Oximetry (%) GENERAL: Awake, alert, and fully oriented, in no acute distress. HEAD: Normal with no signs of trauma. EYES: Pupils equal, round and reactive to light, extraocular movements intact, sclera anicteric, conjunctiva clear. EARS, NOSE, THROAT: Oropharynx clear without exudates. Moist mucous membranes. NECK: No JVD, or masses. LUNGS: Bilateral crackles at the bases. No wheezes. No accessory muscle use. HEART: Regular rate and rhythm, normal S1 and S2 without murmur, rub or gallop. ABDOMEN: Soft, nontender, not distended, normoactive bowel sounds, no guarding, no rebound, no masses. MUSCULOSKELETAL: Normal range of motion at all joints. No bony deformities or tenderness. No CVA tenderness. UPPER EXTREMITIES: 2+ pulses, warm, well-perfused. No peripheral edema. LOWER EXTREMITIES: 2+ pulses, warm, well-perfused. mild calf tenderness. 2+ peripheral edema. NEUROLOGICAL: Cranial nerves II-XII intact. Normal speech. PSYCHIATRIC: Cooperative. Good eye contact. Appropriate mood and affect. SKIN: Warm, dry, normal turgor, no rashes or lesions noted, normal capillary refill. Laboratory Results - last 24 hr 02/07/20 02/07/20 02/07/20 16:43 16:43 16:43 WBC 5.9 RBC 2.71 L Hgb 7.4 L Hct 22.9 L D MCV 84.4 MCH 27.2 MCHC 32.2 RDW 15.2 Plt Count 237 D MPV 7.9 Absolute Neuts (auto) 4.1 Neutrophils % 69.7 Lymphocytes % 14.7 D Monocytes % 7.5 Eosinophils % 7.3 H Basophils % 0.8 Nucleated RBC % 0 PT with INR 12.30 INR 1.04 Sodium Potassium Chloride Carbon Dioxide Anion Gap BUN Creatinine Est GFR (CKD-EPI)AfAm Est GFR (CKD-EPI)NonAf Random Glucose Calcium Magnesium Total Bilirubin AST ALT Alkaline Phosphatase Creatine Kinase Creatine Kinase Index CK-MB (CK-2) Troponin I B-Natriuretic Peptide Total Protein Albumin Lipase Urine Color Yellow Urine Appearance Clear Urine pH 5.5 Ur Specific [place] 1.014 Urine Protein 3+ H Urine Glucose (UA) Trace Urine Ketones Negative Urine Blood 1+ H Urine Nitrite Negative Urine Bilirubin Negative Urine Urobilinogen 1.0 Ur Leukocyte Esterase Negative Urine WBC (Auto) 10 Urine RBC (Auto) 44 Urine Casts (Auto) 1 U Epithel Cells (Auto) 6 Urine Bacteria (Auto) 5 02/07/20 16:43 WBC RBC Hgb Hct MCV MCH MCHC RDW Plt Count MPV Absolute Neuts (auto) Neutrophils % Lymphocytes % Monocytes % Eosinophils % Basophils % Nucleated RBC % PT with INR INR Sodium 140 Potassium 5.3 H Chloride 115 H Carbon Dioxide 17 L Anion Gap 8 BUN 53.4 H Creatinine 3.1 H Est GFR (CKD-EPI)AfAm 24.38 Est GFR (CKD-EPI)NonAf 21.03 Random Glucose 114 H Calcium 7.8 L Magnesium 2.2 Total Bilirubin 0.3 AST 16 ALT 15 Alkaline Phosphatase 137 H Creatine Kinase 506 H Creatine Kinase Index 0.6 CK-MB (CK-2) 3.1 Troponin I < 0.02 B-Natriuretic Peptide 55058.9 H Total Protein 6.5 Albumin 2.8 L Lipase 64 L Urine Color Urine Appearance Urine pH Ur Specific [place] Urine Protein Urine Glucose (UA) Urine Ketones Urine Blood Urine Nitrite Urine Bilirubin Urine Urobilinogen Ur Leukocyte Esterase Urine WBC (Auto) Urine RBC (Auto) Urine Casts (Auto) U Epithel Cells (Auto) Urine Bacteria (Auto) ASSESSMENT/PLAN: 59 y.o. Wallisian speaking M PMHx CKD stage 3, DM, HTN, CHF BPH, HLD. Presents to the ED after being sent by his insurance claims supervisor on 02/01/2020 due to JASWINDER, hyperkalemia and peaked t-waves. #CHF - Based on BMP 87637.9, 2+ pitting edema - CXR shows b/l interstitial markings, mild pulmonary venous congestion - Echo on 08/31/2019 shows EF of 30% with global hypokinesis of the LV - Lasix 40mg IV BID started - Cardiology consult (Dr. Orellana) - Echo ordered, was supposed to have another by november and he has not - May need ICD placed, per last admission cardiology rec - Strict I&O's - Fluid restriction - Weight check - Admission to telemetry - Vitals Q4 # Hyperkalemia - Potassium 5.3 - EKG shows Elevated t waves in V2 and V3 - Calcium gluconate was given - Lab work from 01/31/2020 shows K+ of 6.1 - Repeat BMP & EKG overnight (f/u EKG shows t waves in v2 & v3) # Anemia - Likely secondary to CKD - Previous admissions show iron deficiency anemia - Hgb 7.4, Hct 22.9 - Iron studies ordered, will start venofer if iron is low - FOBT - Reticulocyte count # CKD - Cr 3.1, BUN 53.4 - GFR 25 - Lab work from 01/31/2020 shows Cr of 3.53 - Baseline Cr 1.7-1.8 - Nephrology consult (Dr. Aiken) - Avoid nephrotoxic drugs # Hematuria - Shows 3+ protein and 1+ blood - Urine culture ordered - Repeat UA with morning labs # Diabetes - BGM - Sliding scale # Elevated ALP - ALP 137 - Monitor morning BMP - If elevated LFT's or bili can perform RUQUS # HTN - F/U BP, was 170/94 on arrival to ED - Metoprolol 50mg PO BID - Hydralazine 25mg PO Daily # Covid - Covid PCR Ordered - PCR ordered due to geographic location of pandemic - Placed in isolation precautions # FEN - Sodium restricted diet - Fluid restriction # DVT Prophylaxis - Bilateral SCD's due to low Hgb # Dispo - Admission to telemetry ATTENDING PHYSICIAN STATEMENT I saw and evaluated the patient. I reviewed the resident's note and discussed the case with the resident. I agree with the resident's findings and plan as documented. SUBJECTIVE: OBJECTIVE: ASSESSMENT AND PLAN: <Nadya Pacheco - Last Filed: 02/08/20 06:39> CHIEF COMPLAINT: PCP: HISTORY OF PRESENT ILLNESS: ER course was notable for: (1) (2) (3) Recent Travel: PAST MEDICAL HISTORY: PAST SURGICAL HISTORY: Social History: Smoking: Alcohol: Drugs: Allergies pantoprazole Adverse Reaction (Mild, Verified 02/07/20 16:25) Vomiting Acute kidney injury HOME MEDICATIONS: Home Medications Medication Instructions Recorded Amlodipine Besylate [Norvasc -] 10 mg PO DAILY tablet 02/21/19 Aspirin [ASA -] 81 mg PO DAILY tab.chew 02/21/19 Glipizide [Glipizide ER] 10 mg PO DAILY #60 tab.er.24 02/21/19 Furosemide [Lasix -] 40 mg PO BID@0600,1400 tablet 05/21/19 Metoprolol Succinate [Toprol XL -] 50 mg PO BID #60 tab.sr.24h 09/19/19 Hydralazine HCl 25 mg PO DAILY 02/07/20 REVIEW OF SYSTEMS CONSTITUTIONAL: Absent: fever, chills, diaphoresis, generalized weakness, malaise, loss of appetite, weight change HEENT: Absent: rhinorrhea, nasal congestion, throat pain, throat swelling, difficulty swallowing, mouth swelling, ear pain, eye pain, visual changes CARDIOVASCULAR: Absent: chest pain, syncope, palpitations, irregular heart rate, lightheadedness, peripheral edema RESPIRATORY: Absent: cough, shortness of breath, dyspnea with exertion, orthopnea, wheezing, stridor, hemoptysis GASTROINTESTINAL: Absent: abdominal pain, abdominal distension, nausea, vomiting, diarrhea, constipation, melena, hematochezia GENITOURINARY: Absent: dysuria, frequency, urgency, hesitancy, hematuria, flank pain, genital pain MUSCULOSKELETAL: Absent: myalgia, arthralgia, joint swelling, back pain, neck pain SKIN: Absent: rash, itching, pallor HEMATOLOGIC/IMMUNOLOGIC: Absent: easy bleeding, easy bruising, lymphadenopathy, frequent infections ENDOCRINE: Absent: unexplained weight gain, unexplained weight loss, heat intolerance, cold intolerance NEUROLOGIC: Absent: headache, focal weakness or paresthesias, dizziness, unsteady gait, seizure, mental status changes, bladder or bowel incontinence PSYCHIATRIC: Absent: anxiety, depression, suicidal or homicidal ideation, hallucinations. PHYSICAL EXAMINATION Vital Signs - 24 hr 02/07/20 02/07/20 02/07/20 16:27 16:35 17:57 Temperature 97.8 F Pulse Rate 74 Pulse Rate [ 71 Right Radial] Respiratory 16 19 Rate Blood Pressure 154/70 Blood Pressure 170/94 [Right Arm] O2 Sat by Pulse 99 95 98 Oximetry (%) 02/07/20 21:18 Temperature Pulse Rate Pulse Rate [ Right Radial] Respiratory Rate Blood Pressure Blood Pressure 197/93 H [Right Arm] O2 Sat by Pulse Oximetry (%) GENERAL: Awake, alert, and fully oriented, in no acute distress. HEAD: Normal with no signs of trauma. EYES: Pupils equal, round and reactive to light, extraocular movements intact, sclera anicteric, conjunctiva clear. No lid lag. EARS, NOSE, THROAT: Ears normal, nares patent, oropharynx clear without exudates . Moist mucous membranes. NECK: Normal range of motion, supple without lymphadenopathy, JVD, or masses. LUNGS: Breath sounds equal, clear to auscultation bilaterally. No wheezes, and no crackles. No accessory muscle use. HEART: Regular rate and rhythm, normal S1 and S2 without murmur, rub or gallop. ABDOMEN: Soft, nontender, not distended, normoactive bowel sounds, no guarding, no rebound, no masses. No hepatomegaly or splenomegaly. MUSCULOSKELETAL: Normal range of motion at all joints. No bony deformities or tenderness. No CVA tenderness. UPPER EXTREMITIES: 2+ pulses, warm, well-perfused. No cyanosis. No clubbing. No peripheral edema. LOWER EXTREMITIES: 2+ pulses, warm, well-perfused. No calf tenderness. No peripheral edema. NEUROLOGICAL: Cranial nerves II-XII intact. Normal speech. Normal gait. PSYCHIATRIC: Cooperative. Good eye contact. Appropriate mood and affect. SKIN: Warm, dry, normal turgor, no rashes or lesions noted, normal capillary refill. Laboratory Results - last 24 hr 02/07/20 02/07/20 02/07/20 16:43 16:43 16:43 WBC 5.9 RBC 2.71 L Hgb 7.4 L Hct 22.9 L D MCV 84.4 MCH 27.2 MCHC 32.2 RDW 15.2 Plt Count 237 D MPV 7.9 Absolute Neuts (auto) 4.1 Neutrophils % 69.7 Lymphocytes % 14.7 D Monocytes % 7.5 Eosinophils % 7.3 H Basophils % 0.8 Nucleated RBC % 0 PT with INR 12.30 INR 1.04 Sodium Potassium Chloride Carbon Dioxide Anion Gap BUN Creatinine Est GFR (CKD-EPI)AfAm Est GFR (CKD-EPI)NonAf Random Glucose Calcium Magnesium Total Bilirubin AST ALT Alkaline Phosphatase Creatine Kinase Creatine Kinase Index CK-MB (CK-2) Troponin I B-Natriuretic Peptide Total Protein Albumin Lipase Urine Color Yellow Urine Appearance Clear Urine pH 5.5 Ur Specific [place] 1.014 Urine Protein 3+ H Urine Glucose (UA) Trace Urine Ketones Negative Urine Blood 1+ H Urine Nitrite Negative Urine Bilirubin Negative Urine Urobilinogen 1.0 Ur Leukocyte Esterase Negative Urine WBC (Auto) 10 Urine RBC (Auto) 44 Urine Casts (Auto) 1 U Epithel Cells (Auto) 6 Urine Bacteria (Auto) 5 02/07/20 02/08/20 02/08/20 16:43 00:00 01:30 WBC RBC Hgb Hct MCV MCH MCHC RDW Plt Count MPV Absolute Neuts (auto) Neutrophils % Lymphocytes % Monocytes % Eosinophils % Basophils % Nucleated RBC % PT with INR INR Sodium 140 142 Potassium 5.3 H 5.1 Chloride 115 H 117 H Carbon Dioxide 17 L 18 L Anion Gap 8 7 L BUN 53.4 H 53.2 H Creatinine 3.1 H 3.0 H Est GFR (CKD-EPI)AfAm 24.38 25.36 Est GFR (CKD-EPI)NonAf 21.03 21.88 Random Glucose 114 H 118 H Calcium 7.8 L 8.1 L Magnesium 2.2 Total Bilirubin 0.3 AST 16 ALT 15 Alkaline Phosphatase 137 H Creatine Kinase 506 H Creatine Kinase Index 0.6 CK-MB (CK-2) 3.1 Troponin I < 0.02 B-Natriuretic Peptide 59480.9 H Total Protein 6.5 Albumin 2.8 L Lipase 64 L Urine Color Yellow Urine Appearance Clear Urine pH 6.0 Ur Specific [place] 1.011 Urine Protein 3+ H Urine Glucose (UA) Trace Urine Ketones Negative Urine Blood 1+ H Urine Nitrite Negative Urine Bilirubin Negative Urine Urobilinogen 0.2 Ur Leukocyte Esterase Negative Urine WBC (Auto) 3 Urine RBC (Auto) 40 Urine Casts (Auto) 0 U Epithel Cells (Auto) 3 Urine Bacteria (Auto) 2 ASSESSMENT/PLAN: Visit type - Emergency Visit Emergency Visit: Yes ED Registration Date: 02/07/20 Care time: The patient presented to the Emergency Department on the above date and was hospitalized for further evaluation of their emergent condition. - New Patient This patient is new to me today: Yes Date on this admission: 02/08/20 - Critical Care Critical Care patient: No ATTENDING PHYSICIAN STATEMENT I saw and evaluated the patient. I reviewed the resident's note and discussed the case with the resident. I agree with the resident's findings and plan as documented. SUBJECTIVE: OBJECTIVE: ASSESSMENT AND PLAN: 59 year old Wallisian speaking M PMHx CKD stage 3, DM, HTN, CHF BPH, HLD. Presents to the ED after being sent by his insurance claims supervisor on 02/01/2020 due to JASWINDER, hyperkalemia and peaked t-waves. #CHF - Elevated BNP/chest xray findings: mild pulmonary venous congestion -IV lasix as BP allows - Echo on 08/31/2019 shows EF of 30% with global hypokinesis of the LV - Lasix 40mg IV BID started - Cardiology consult (Dr. Orellana) # Hyperkalemia - EKG shows Elevated t waves in V2 and V3 - Calcium gluconate was given - Repeat BMP & EKG overnight (f/u EKG shows t waves in v2 & v3) # Anemia - Likely secondary to CKD - Previous admissions show iron deficiency anemia - Hgb 7.4, Hct 22.9 - Iron studies ordered, will start venofer if iron is low - FOBT - Reticulocyte count # CKD - Monitor # DVT prophylaxsis - Venodynes in the setting of anemia
[2020-02-08 00:22] LABS: EPI CELLS 3 /uL (0-25.1); HYALINE CASTS 0 /uL (0-3.1); URINE APPEARANCE CLEAR; URINE BACTERIA 2 /uL (0-1359); URINE BILIRUBIN NEGATIVE (NEGATIVE); URINE COLOR YELLOW; URINE GLUCOSE (UA) TRACE (NEGATIVE); URINE KETONE NEGATIVE (NEGATIVE); URINE LEUK ESTERASE NEGATIVE (NEGATIVE); URINE NITRITE NEGATIVE (NEGATIVE); URINE PROTEIN 3+ (NEGATIVE); URINE RBC 40 /uL (0-23.9); URINE UROBILINOGEN 0.2 mg/dL (0.2-1.0); URINE WBC 3 /uL (0-25.8)
[2020-02-08 02:18] LABS: BLOOD UREA NITROGEN 53.2 mg/dL (7-18); CALCIUM 8.1 mg/dL (8.5-10.1); POTASSIUM 5.1 mmol/L (3.5-5.1)
[2020-02-08] MEDS ORDERED: hydrALAZINE HCL 25 MG TABLET (FP) PO ONE (03:56)
[2020-02-08] MEDS ORDERED: hydrALAZINE HCL 25 MG TABLET (FP) ONE ×3 (05:04→15:03)
[2020-02-08] MEDS ORDERED: FUROSEMIDE 40 MG/4 ML INJECTABLE VIAL IVPUSH SCH (06:00)
[2020-02-08] MEDS ORDERED: FUROSEMIDE 40 MG/4 ML INJECTABLE VIAL ONE ×2 (06:22→15:03)
[2020-02-08 06:50] LABS: HEMATOCRIT 24.7 % (35.4-49); MCH 27.1 pg (25.7-33.7); MCHC 32.4 g/dl (32.0-35.9); MEAN CELL VOLUME 83.6 fl (80-96); MEAN PLT VOLUME 7.6 fl (7.5-11.1); PLATELET COUNT 256 K/MM3 (134-434); RBC 2.96 M/mm3 (4.00-5.60); RETICULOCYTES 1.28 % (0.5-1.5); WHITE BLOOD COUNT 6.9 K/mm3 (4.0-10.0)
[2020-02-08 07:15] LABS: BLOOD UREA NITROGEN 54.1 mg/dL (7-18); CALCIUM 8.4 mg/dL (8.5-10.1); CREATININE 2.9 mg/dL (0.55-1.3); MAGNESIUM 2.2 mg/dL (1.8-2.4); PHOSPHOROUS 5.8 mg/dL (2.5-4.9); POTASSIUM 5.2 mmol/L (3.5-5.1)
[2020-02-08] MEDS: INSULIN SLIDING SCALE (NOVOLOG) 1 VIAL SQ SCH ×4 (07:51→22:22)
--- NOTE | 2020-02-08 09:31 | EKG ---
Test Reason : Blood Pressure : / mmHG Vent. Rate : 066 BPM Atrial Rate : 066 BPM P-R Int : 240 ms QRS Dur : 098 ms QT Int : 390 ms P-R-T Axes : 025 -20 125 degrees QTc Int : 408 ms SINUS RHYTHM WITH 1ST DEGREE A-V BLOCK MINIMAL VOLTAGE CRITERIA FOR LVH, MAY BE NORMAL VARIANT T WAVE ABNORMALITY, CONSIDER LATERAL ISCHEMIA ABNORMAL ECG WHEN COMPARED WITH ECG OF 07-FEB-2020 16:34, INCOMPLETE RIGHT BUNDLE BRANCH BLOCK IS NO LONGER PRESENT Confirmed by MD SUMANTH, CASSIDY ([id number]) on 02/08/2020 9:31:19 AM Referred By: Confirmed By:CASSIDY JULIO MD
--- NOTE | 2020-02-08 09:42 | EKG ---
Test Reason : Blood Pressure : / mmHG Vent. Rate : 075 BPM Atrial Rate : 075 BPM P-R Int : 232 ms QRS Dur : 100 ms QT Int : 372 ms P-R-T Axes : 035 -31 119 degrees QTc Int : 415 ms SINUS RHYTHM WITH 1ST DEGREE A-V BLOCK LEFT ATRIAL ENLARGEMENT LEFT AXIS DEVIATION INCOMPLETE RIGHT BUNDLE BRANCH BLOCK SEPTAL INFARCT LEFT VENTRICULAR HYPERTROPHY T WAVE ABNORMALITY, CONSIDER LATERAL ISCHEMIA ABNORMAL ECG Confirmed by MD SUMANTH, CASSIDY ([id number]) on 02/08/2020 9:42:00 AM Referred By: Confirmed By:CASSIDY JULIO MD
[2020-02-08] MEDS ORDERED: ASPIRIN 81 MG CHEWABLE TABLETS PO SCH (10:00)
[2020-02-08] MEDS ORDERED: SODIUM ZIRCONIUM CYCLOSILICATE (LOKELMA) 5 GM PACKET PO SCH (10:00)
--- NOTE | 2020-02-08 10:58 | ECHO ---
Version: 1 Name: EBONIE WILKERSON Exam: Adult Echocardiogram Study Date: 02/08/2020, 10:14 AM Age: 59 Years MMode/2D Measurements & Calculations IVSd: 1.28 cm LVIDs: 4.2 cm LVIDd: 5.8 cm LVPWd: 1.29 cm LAV (MOD-bp): 95.3 ml LVOT diam: 2.00 cm Ao root diam: 2.8 cm LA dimension: 4.7 cm Doppler Measurements & Calculations MV E max hubert: 154.0 cm/sec Med E/e': 31.5 MV A max hubert: 79.8 cm/sec Med Peak E' Hubert: 4.9 cm/sec MV E/A: 1.93 Lat E/e': 17.5 Lat Peak E' Hubert: 8.8 cm/sec MR max P.7 mmHg Ao max P.8 mmHg LIZ(I,D): 1.49 cm Ao mean P.0 mmHg LV V1 mean: 84.6 cm/sec Ao V2 max: 211.1 cm/sec LV V1 mean P.2 mmHg AI P1/2t: 1737 msec TR max hubert: 336.9 cm/sec TR max P.3 mmHg Left Ventricle The left ventricle is grossly normal size. There is mild concentric left ventricular hypertrophy. Le ft ventricular systolic function is normal. Ejection Fraction = 60%. The transmitral spectral Doppler f low pattern is normal for age. Right Ventricle The right ventricle is normal in size and function. Atria The left atrium is moderately dilated. The right atrium is mildly dilated. Mitral Valve There is mild mitral annular calcification. The mitral regurgitant jet is eccentrically directed. Th ere is mild to moderate mitral regurgitation. Tricuspid Valve The tricuspid valve is normal in structure and function. There is mild tricuspid regurgitation. Aortic Valve The aortic valve is normal in structure and function. Pulmonic Valve The pulmonic valve is not well seen, but is grossly normal. Great Vessels The aortic root is normal size. Normal aortic arch, descending and ascending aorta. Pericardium/Pleura There is no pericardial effusion. Summary Statements The left ventricle is grossly normal size. There is mild concentric left ventricular hypertrophy. Left ventricular systolic function is normal. Ejection Fraction = 60%. The transmitral spectral Doppler flow pattern is normal for age. The right ventricle is normal in size and function. The left atrium is moderately dilated. The right atrium is mildly dilated. There is mild mitral annular calcification. The mitral regurgitant jet is eccentrically directed. There is mild to moderate mitral regurgitation. The tricuspid valve is normal in structure and function. There is mild tricuspid regurgitation. The aortic valve is normal in structure and function. The pulmonic valve is not well seen, but is grossly normal. The aortic root is normal size. Normal aortic arch, descending and ascending aorta There is no pericardial effusion. Saurabh Dupree 02/08/2020, 10:57 AM Ordering Physician: Kervin Dawson Performed By: Meli Flores
[2020-02-08] MEDS ORDERED: amLODIPine BESYLATE 5 MG TABLET (FP) ONE (11:25)
[2020-02-08] MEDS: amLODIPine BESYLATE 10 MG TABLET (FP) PO SCH (11:38)
[2020-02-08] MEDS: hydrALAZINE HCL 25 MG TABLET (FP) PO SCH ×2 (11:38→22:12)
--- NOTE | 2020-02-08 12:28 | CON.CARD ---
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 Sees me for cardio, recently seen in office for abnormal labs. Was admitted 08/2019 for CHF exacerbation with systolic dysfunction, diuresed with IV lasix and milrinone gtt. Has been following up in office, was on lasix 120 mg PO BID with improvement in lower ext edema and recent echo showing normal EF. Had rising Cr last month, lasix dose was reduced most recently was on 40 mg BID. In the last 2-3 weeks had worsening lower ext edema and dyspnea, labs were done 01/29 which showed Cr 3.5 (Cr in 09/2019 2.3-2.5) and K 6.1. Attempted to contact patient, unable to reach by phone and came into office 01/31 for evaluation which showed EKG changes, with exam c/w CHF, was advised to go to the ER and did not go. Had been unable to reach patient for several days, did not go to ER due to work obligations, now here with worsening edema/dyspnea. improving with IV lasix. Currently no chest pain, palps, dizziness. Complains of edema and some shortness of breath. 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 Gastrointestinal: Yes: Constipation Renal/: Yes: BPH Endocrine: Yes: Diabetes Mellitus - Alcohol/Substance Use Hx Alcohol Use: No - Smoking History Smoking history: Never smoked Have you smoked in the past 12 months: No If you are a former smoker, when did you quit?: 12 years ago Allergies Allergy/AdvReac Type Severity Reaction Status Date / Time pantoprazole AdvReac Mild Vomiting Verified 02/07/20 16:25 Home Medications Medication Instructions Recorded Amlodipine Besylate [Norvasc -] 10 mg PO DAILY tablet 02/21/19 Aspirin [ASA -] 81 mg PO DAILY tab.chew 02/21/19 Glipizide [Glipizide ER] 10 mg PO DAILY #60 tab.er.24 02/21/19 Furosemide [Lasix -] 40 mg PO BID@0600,1400 tablet 05/21/19 Metoprolol Succinate [Toprol XL -] 50 mg PO BID #60 tab.sr.24h 09/19/19 Hydralazine HCl 25 mg PO BID 02/07/20 Family Disease History - Family Disease History Family History: Unremarkable Review of Systems - Review of Systems Constitutional: reports: No Symptoms Eyes: reports: No Symptoms HENT: reports: No Symptoms Neck: reports: No Symptoms Cardiovascular: reports: Chest Pain Respiratory: reports: No Symptoms Gastrointestinal: reports: No Symptoms Musculoskeletal: reports: No Symptoms Neurological: reports: Dizziness Endocrine: reports: No Symptoms Psychiatric: reports: No Symptoms Vital Signs Period Temp Pulse Resp BP Sys/Garner Pulse Ox Last 24 Hr 97.3 F-98.7 F 62-74 16-19 152-197/70-94 95-99 Constitutional: Yes: Well Nourished, No Distress, Calm Eyes: Yes: Conjunctiva Clear, EOM Intact HENT: Yes: Atraumatic, Normocephalic Neck: Yes: Supple, no JVD Respiratory: +bibasilar rales Gastrointestinal: Yes: Normal Bowel Sounds, Soft Cardiovascular: Yes: Regular Rate and Rhythm Heart Sounds: Yes: S1, S2 Edema: 2+ pitting edema bilaterally Peripheral Pulses: 2+ Left Doralis Pedis, 2+ Right Dorsalis Pedis Neurological: Yes: Alert, Oriented Psychiatric: Yes: Alert, Oriented Laboratory Last Values WBC 6.9 K/mm3 (4.0-10.0) 02/08/20 06:13 RBC 2.96 M/mm3 (4.00-5.60) L 02/08/20 06:13 Hgb 8.0 GM/dL (11.7-16.9) L 02/08/20 06:13 Hct 24.7 % (35.4-49) L 02/08/20 06:13 MCV 83.6 fl (80-96) 02/08/20 06:13 MCH 27.1 pg (25.7-33.7) 02/08/20 06:13 MCHC 32.4 g/dl (32.0-35.9) 02/08/20 06:13 RDW 15.0 % (11.9-15.9) 02/08/20 06:13 Plt Count 256 K/MM3 (134-434) 02/08/20 06:13 MPV 7.6 fl (7.5-11.1) 02/08/20 06:13 Absolute Neuts (auto) 4.1 K/mm3 (1.5-8.0) 02/07/20 16:43 Neutrophils % 69.7 % (42.8-82.8) 02/07/20 16:43 Lymphocytes % 14.7 % (8-40) D 02/07/20 16:43 Monocytes % 7.5 % (3.8-10.2) 02/07/20 16:43 Eosinophils % 7.3 % (0-4.5) H 02/07/20 16:43 Basophils % 0.8 % (0-2.0) 02/07/20 16:43 Nucleated RBC % 0 % (0-0) 02/07/20 16:43 Retic Count 1.28 % (0.5-1.5) 02/08/20 06:13 PT with INR 12.30 SEC (9.7-13.0) 02/07/20 16:43 INR 1.04 (0.83-1.09) 02/07/20 16:43 Sodium 142 mmol/L (136-145) 02/08/20 06:13 Potassium 5.2 mmol/L (3.5-5.1) H 02/08/20 06:13 Chloride 117 mmol/L (98-107) H 02/08/20 06:13 Carbon Dioxide 17 mmol/L (21-32) L 02/08/20 06:13 Anion Gap 9 MMOL/L (8-16) 02/08/20 06:13 BUN 54.1 mg/dL (7-18) H 02/08/20 06:13 Creatinine 2.9 mg/dL (0.55-1.3) H 02/08/20 06:13 Est GFR (CKD-EPI)AfAm 26.42 02/08/20 06:13 Est GFR (CKD-EPI)NonAf 22.80 02/08/20 06:13 Random Glucose 111 mg/dL (74-106) H 02/08/20 06:13 Hemoglobin A1c % 6.1 % (4.2-6.3) 02/08/20 06:13 Calcium 8.4 mg/dL (8.5-10.1) L 02/08/20 06:13 Phosphorus 5.8 mg/dL (2.5-4.9) H 02/08/20 06:13 Magnesium 2.2 mg/dL (1.8-2.4) 02/08/20 06:13 Iron 38 ug/dL (50-175) L 02/08/20 06:13 TIBC 292 ug/dL (250-450) 02/08/20 06:13 Iron Saturation 13 % (17.5-39) L 02/08/20 06:13 Unsaturated IBC 254 ug/dL (200-275) 02/08/20 06:13 Ferritin 45.4 ng/ml (8-388) 02/08/20 06:13 Total Bilirubin 0.3 mg/dL (0.2-1) 02/07/20 16:43 AST 16 U/L (15-37) 02/07/20 16:43 ALT 15 U/L (13-61) 02/07/20 16:43 Alkaline Phosphatase 137 U/L (45-117) H 02/07/20 16:43 Creatine Kinase 506 U/L (26-308) H 02/07/20 16:43 Creatine Kinase Index 0.6 % (0.0-5.0) 02/07/20 16:43 CK-MB (CK-2) 3.1 ng/mL (0.5-3.6) 02/07/20 16:43 Troponin I < 0.02 ng/ml (0.00-0.05) 02/07/20 16:43 B-Natriuretic Peptide 81703.9 pg/ml (5-125) H 02/07/20 16:43 Total Protein 6.5 g/dl (6.4-8.2) 02/07/20 16:43 Albumin 2.8 g/dl (3.4-5.0) L 02/07/20 16:43 Lipase 64 U/L (73-393) L 02/07/20 16:43 Urine Color Yellow 02/08/20 00:00 Urine Appearance Clear 02/08/20 00:00 Urine pH 6.0 (5.0-8.0) 02/08/20 00:00 Ur Specific [place] 1.011 (1.010-1.035) 02/08/20 00:00 Urine Protein 3+ (NEGATIVE) H 02/08/20 00:00 Urine Glucose (UA) Trace (NEGATIVE) 02/08/20 00:00 Urine Ketones Negative (NEGATIVE) 02/08/20 00:00 Urine Blood 1+ (NEGATIVE) H 02/08/20 00:00 Urine Nitrite Negative (NEGATIVE) 02/08/20 00:00 Urine Bilirubin Negative (NEGATIVE) 02/08/20 00:00 Urine Urobilinogen 0.2 mg/dL (0.2-1.0) 02/08/20 00:00 Ur Leukocyte Esterase Negative (NEGATIVE) 02/08/20 00:00 Urine WBC (Auto) 3 /uL (0-25.8) 02/08/20 00:00 Urine RBC (Auto) 40 /uL (0-23.9) 02/08/20 00:00 Urine Casts (Auto) 0 /uL (0-3.1) 02/08/20 00:00 U Epithel Cells (Auto) 3 /uL (0-25.1) 02/08/20 00:00 Urine Bacteria (Auto) 2 /uL (0-1359) 02/08/20 00:00 Assessment/Plan echo 02/26/18 borderline low LV function, grade I diastolic dysfunction, mild to mod MR, mild TR, RV nl size and function, mild hypokinesis of inf wall Nuclear pharm stress 03/01/18 sm to mod zone of inferior wall reversible defect from base to apex consistent with mild intensity ischemia. nl LV function, ef 52% rest, 58% after stress cath 02/2018 nonobstructive CAD, nl EF EKG: sinus rhythm, LVH with repol CXR: no acute process echo 11/2018 mod conc LVH, nl LV function, RV nl, tr MR, tr TR, mild pulm HTN, tr AR Echo 09/15: mild conc LVH; severe, global LV hypo/EF 30%. nl RV. mild-mod TR. RVSP 42. 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
[2020-02-08] MEDS ORDERED: hydrALAZINE HCL 50 MG TABLET (FP) PO ONE (13:13)
[2020-02-08] MEDS: FUROSEMIDE 40 MG/4 ML INJECTABLE VIAL IVPUSH SCH (15:38)
--- NOTE | 2020-02-08 15:43 | CON.NEP ---
Consult Consult Specialty:: Nephrology Referred by:: Medicine Reason for Consultation:: CKD/Fluid overload - History of Present Illness Chief Complaint: Swelling/SOB/Abnormal renal function History of Present Illness: This is a 51 year old male with history of CKD (Cr 2-3) with nephrotic range proteinuria, diastolic HF, DM type 2, BPH and hyperlipidemia who presented from home with leg swelling, DELEON and abnormal renal function. Pt seen and examined at the bedside. Awake and alert. Reports leg swelling and DELEON. No SOB at rest or orthopnea. No PND. No chest pain, fever, or chills. Denies any NSAID use. No recent contrast exposure. Cr was noted to be trending up with higher diuretic dose as an outpatient per cardiology and then diuretics were reduced but subsequently found to have more fluid retention. 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 Cardio/Vascular: Yes: CAD, HTN, Hyperlipdemia Gastrointestinal: Yes: Constipation Renal/: Yes: Renal Inusuff Endocrine: Yes: Diabetes Mellitus - Alcohol/Substance Use Hx Alcohol Use: No History of Substance Use: reports: None - Smoking History Smoking history: Never smoked Have you smoked in the past 12 months: No Aproximately how many cigarettes per day: 20 If you are a former smoker, when did you quit?: 20 years - Social History History of Recent Travel: No Home Medications - Allergies Allergies/Adverse Reactions: Allergies Allergy/AdvReac Type Severity Reaction Status Date / Time pantoprazole AdvReac Mild Vomiting Verified 02/07/20 16:25 - Home Medications Home Medications: Ambulatory Orders Amlodipine Besylate [Norvasc -] 10 mg PO DAILY tablet 02/21/19 Aspirin [ASA -] 81 mg PO DAILY tab.chew 02/21/19 Glipizide [Glipizide ER] 10 mg PO DAILY #60 tab.er.24 02/21/19 Furosemide [Lasix -] 40 mg PO BID@0600,1400 tablet 05/21/19 Metoprolol Succinate [Toprol XL -] 50 mg PO BID #60 tab.sr.24h 09/19/19 Hydralazine HCl 25 mg PO BID 02/07/20 Family Medical History Family History: Unremarkable Review of Systems - Review of Systems Constitutional: reports: No Symptoms Eyes: reports: No Symptoms HENT: reports: No Symptoms Neck: reports: No Symptoms Cardiovascular: reports: Edema, Shortness of Breath. denies: Chest Pain, Palpitations Respiratory: reports: SOB, SOB on Exertion. denies: Hemoptysis, Orthopnea, PND Gastrointestinal: reports: No Symptoms Genitourinary: reports: No Symptoms Musculoskeletal: reports: Joint Swelling Integumentary: reports: No Symptoms Neurological: reports: No Symptoms Endocrine: reports: No Symptoms Nephrology Consult - Height Height: 5 ft 3 in - Weight Weight: 97.522 kg - BMI Body Mass Index (BMI): 38.0 - Lab Results CBC,BMP: CBC, BMP 02/08/20 06:13 02/08/20 06:13 Anion Gap: Anion Gap Anion Gap 9 MMOL/L (8-16) 02/08/20 06:13 - Imaging Chest X-ray: Report Reviewed - Physical Examination Vital Signs: Vital Signs Temperature 97.3 F L 02/08/20 06:00 Pulse Rate 65 02/08/20 14:00 Respiratory Rate 20 02/08/20 14:00 Blood Pressure 142/66 02/08/20 14:00 O2 Sat by Pulse Oximetry (%) 98 02/08/20 14:00 Constitutional: Yes: No Distress, Calm Eyes: Yes: Conjunctiva Clear HENT: Yes: Atraumatic, Normocephalic Neck: Yes: Supple Cardiovascular: Yes: Regular Rate and Rhythm. No: Murmur, Rub Respiratory: Yes: Regular, Diminished, On Nasal O2, SOB, SOB on Exertion Gastrointestinal: Yes: Normal Bowel Sounds, Soft Renal/: No: Bladder Distention, CVA Tenderness - Left, CVA Tenderness - Right Extremities: No: Cold, Cool, Cyanosis Edema: Yes Neurological: Yes: Alert, Oriented Assessment/Plan 51 year old male with history of CKD (Cr 2-3) with nephrotic range proteinuria, diastolic HF, DM type 2, BPH and hyperlipidemia who presented from home with leg swelling, 1. Acute heart failure/volume overload 2. JASWINDER/CKD 3. Nephrotic range proteinuria with + PK 4. Hypertension 5. DM type 2 6. Hyperlipidemia 7. Hyperkalemia Continue Lasix 80gm IV BID Trend daily weights Low sodium diet Defer JORGE/ARB given low eGFR and hyperkalemia Cr is at the upper limit of where he has been this year Trend renal function closely with diuresis etiology of CKD likely diabetic nephropathy despite having lot titer PK. C3/C4 and Anti-DS DNA negative which make it less likely that he has active lupus n ephritis Biopsy can be considered as an outpatient as pt can also have FSGS Continue low sodium diet if K < 5.5 can discontinue potassium binding resin Nutrition consult for education about low potassium diet Thank you Will follow Rufino Rudolph DO
--- NOTE | 2020-02-08 17:35 | PN ---
Physical Exam: SUBJECTIVE: Patient seen and examined patient was seen at bedside. Patient is indian speaking. Patient denies any acute events overnight. OBJECTIVE: Vital Signs Period Temp Pulse Resp BP Sys/Garner Pulse Ox Last 24 Hr 97.3 F-98.7 F 62-71 16-20 142-197/66-94 97-98 GENERAL: The patient is awake, alert, and fully oriented, in no acute distress. HEAD: Normal with no signs of trauma. NECK: Trachea midline, full range of motion, supple. LUNGS: Breath sounds equal, clear to auscultation bilaterally, no wheezes, no crackles, no accessory muscle use. HEART: Regular rate and rhythm, S1, S2 without murmur, rub or gallop. EXTREMITIES: 2+ edema PSYCH: Normal mood, normal affect. Laboratory Results - last 24 hr 02/07/20 02/07/20 02/07/20 16:43 16:43 16:43 WBC RBC Hgb Hct MCV MCH MCHC RDW Plt Count MPV Retic Count PT with INR 12.30 INR 1.04 Sodium 140 Potassium 5.3 H Chloride 115 H Carbon Dioxide 17 L Anion Gap 8 BUN 53.4 H Creatinine 3.1 H Est GFR (CKD-EPI)AfAm 24.38 Est GFR (CKD-EPI)NonAf 21.03 Random Glucose 114 H Hemoglobin A1c % Calcium 7.8 L Phosphorus Magnesium 2.2 Iron TIBC Iron Saturation Unsaturated IBC Ferritin Total Bilirubin 0.3 AST 16 ALT 15 Alkaline Phosphatase 137 H Creatine Kinase 506 H Creatine Kinase Index 0.6 CK-MB (CK-2) 3.1 Troponin I < 0.02 B-Natriuretic Peptide 76345.9 H Total Protein 6.5 Albumin 2.8 L Lipase 64 L Vitamin B12 Serum Folate Urine Color Yellow Urine Appearance Clear Urine pH 5.5 Ur Specific [place] 1.014 Urine Protein 3+ H Urine Glucose (UA) Trace Urine Ketones Negative Urine Blood 1+ H Urine Nitrite Negative Urine Bilirubin Negative Urine Urobilinogen 1.0 Ur Leukocyte Esterase Negative Urine WBC (Auto) 10 Urine RBC (Auto) 44 Urine Casts (Auto) 1 U Epithel Cells (Auto) 6 Urine Bacteria (Auto) 5 02/08/20 02/08/20 02/08/20 00:00 01:30 06:13 WBC 6.9 RBC 2.96 L Hgb 8.0 L Hct 24.7 L MCV 83.6 MCH 27.1 MCHC 32.4 RDW 15.0 Plt Count 256 MPV 7.6 Retic Count 1.28 PT with INR INR Sodium 142 Potassium 5.1 Chloride 117 H Carbon Dioxide 18 L Anion Gap 7 L BUN 53.2 H Creatinine 3.0 H Est GFR (CKD-EPI)AfAm 25.36 Est GFR (CKD-EPI)NonAf 21.88 Random Glucose 118 H Hemoglobin A1c % Calcium 8.1 L Phosphorus Magnesium Iron TIBC Iron Saturation Unsaturated IBC Ferritin Total Bilirubin AST ALT Alkaline Phosphatase Creatine Kinase Creatine Kinase Index CK-MB (CK-2) Troponin I B-Natriuretic Peptide Total Protein Albumin Lipase Vitamin B12 Serum Folate Urine Color Yellow Urine Appearance Clear Urine pH 6.0 Ur Specific [place] 1.011 Urine Protein 3+ H Urine Glucose (UA) Trace Urine Ketones Negative Urine Blood 1+ H Urine Nitrite Negative Urine Bilirubin Negative Urine Urobilinogen 0.2 Ur Leukocyte Esterase Negative Urine WBC (Auto) 3 Urine RBC (Auto) 40 Urine Casts (Auto) 0 U Epithel Cells (Auto) 3 Urine Bacteria (Auto) 2 02/08/20 02/08/20 06:13 06:13 WBC RBC Hgb Hct MCV MCH MCHC RDW Plt Count MPV Retic Count PT with INR INR Sodium 142 Potassium 5.2 H Chloride 117 H Carbon Dioxide 17 L Anion Gap 9 BUN 54.1 H Creatinine 2.9 H Est GFR (CKD-EPI)AfAm 26.42 Est GFR (CKD-EPI)NonAf 22.80 Random Glucose 111 H Hemoglobin A1c % 6.1 Calcium 8.4 L Phosphorus 5.8 H Magnesium 2.2 Iron 38 L TIBC 292 Iron Saturation 13 L Unsaturated IBC 254 Ferritin 45.4 Total Bilirubin AST ALT Alkaline Phosphatase Creatine Kinase Creatine Kinase Index CK-MB (CK-2) Troponin I B-Natriuretic Peptide Total Protein Albumin Lipase Vitamin B12 234 Serum Folate 8 Urine Color Urine Appearance Urine pH Ur Specific [place] Urine Protein Urine Glucose (UA) Urine Ketones Urine Blood Urine Nitrite Urine Bilirubin Urine Urobilinogen Ur Leukocyte Esterase Urine WBC (Auto) Urine RBC (Auto) Urine Casts (Auto) U Epithel Cells (Auto) Urine Bacteria (Auto) Active Medications Generic Name Dose Route Start Last Admin Trade Name Freq PRN Reason Stop Dose Admin Amlodipine Besylate 10 mg 02/07/20 21:15 02/08/20 11:38 Norvasc - PO 10 mg DAILY CELESTINO Administration Furosemide 80 mg 02/08/20 14:00 02/08/20 15:38 Lasix Injection - IVPUSH 80 mg BID@0600,1400 CELESTINO Administration Hydralazine HCl 75 mg 02/08/20 22:00 Apresoline - PO BID CELESTINO Insulin Aspart 1 vial 02/08/20 07:00 02/08/20 11:39 Novolog Vial Sliding Scale - SQ Not Given ACHS [facility] Protocol Metoprolol Succinate 50 mg 02/07/20 22:00 02/08/20 11:38 Toprol Xl - PO 50 mg BID CELESTINO Administration Sodium Zirconium Cyclosilicate 5 gm 02/08/20 10:00 02/08/20 11:38 Lokelma PO 5 gm DAILY CELESTINO Administration ASSESSMENT/PLAN: Bob is a 59 year old male with a past medical history of stage 3 chronic kidney disease, diabetes melitus type 2, Chronic systolic congestive heart failure, htn/hld, who arrived to the ED at the behest of his cardiolgist Dr. Trejo for a K+ of 6.1 with EKG changes. #Hyperkalemia - EKG changes not noted on follow up EKG - patient was given calcium gluconate s/p calcium gluconate 5.2 from 6.1 Received Lokelma Monitor K # Acute on Chronic Systolic/Diastolic CHF CXR - pul venous congestion BNP [id number] Failed out-patient Lasix diuresis - started on Lasix 80mg IVP BID Echo 08/31/2019 shows EF of 30% with global hypokinesis of the LV Repeat Echo and Cardiology consult. I/Os, Daily weights. 4. CKD 3 with Nephrotic range proteinuria - Creat appears to be at baseline. Nephrology eval. 5. DM 2 - Glipizide held. Maintain on Novolog sliding scale. 6. HTN - Continue Metoprolol, Hydralazine, Norvasc. 7. CAD (non-obstructive s/p Cardiac Cath 03/13) - continue Aspirin, Metoprolol, Statin. DVT Px - Heparin SQ ATTENDING PHYSICIAN STATEMENT I saw and evaluated the patient. I reviewed the resident's note and discussed the case with the resident. I agree with the resident's findings and plan as documented. SUBJECTIVE: OBJECTIVE: ASSESSMENT AND PLAN:
--- NOTE | 2020-02-08 17:54 | PN ---
Teaching Attending Note Name of Resident: Colby Shultz ATTENDING PHYSICIAN STATEMENT I saw and evaluated the patient. I reviewed the resident's note and discussed the case with the resident. I agree with the resident's findings and plan as documented. SUBJECTIVE: Feeling better, less SOB. Reports increasing exertional dyspnea and LE edema over several weeks. OBJECTIVE: Afebrile, Hemodynamically stable. Last Vital Signs Temp Pulse Resp BP Pulse Ox 97.3 F L 65 20 142/66 98 02/08/20 06:00 02/08/20 14:00 02/08/20 14:00 02/08/20 14:02/08/20 14:00 HEENT - Atraumatic, Normocephalic. heart - S1, S2, RRR Lungs - decreased air entry at bases Abdomen - Soft, non-tender. Bowel Sounds normal. Extremities - LE pitting edema +++ Neuro - AAO x 3. Tone/Power normal. Laboratory Results - last 24 hr 02/07/20 02/08/20 02/08/20 16:43 00:00 01:30 WBC RBC Hgb Hct MCV MCH MCHC RDW Plt Count MPV Retic Count Sodium 140 142 Potassium 5.3 H 5.1 Chloride 115 H 117 H Carbon Dioxide 17 L 18 L Anion Gap 8 7 L BUN 53.4 H 53.2 H Creatinine 3.1 H 3.0 H Est GFR (CKD-EPI)AfAm 24.38 25.36 Est GFR (CKD-EPI)NonAf 21.03 21.88 Random Glucose 114 H 118 H Hemoglobin A1c % Calcium 7.8 L 8.1 L Phosphorus Magnesium 2.2 Iron TIBC Iron Saturation Unsaturated IBC Ferritin Total Bilirubin 0.3 AST 16 ALT 15 Alkaline Phosphatase 137 H Creatine Kinase 506 H Creatine Kinase Index 0.6 CK-MB (CK-2) 3.1 Troponin I < 0.02 B-Natriuretic Peptide 44880.9 H Total Protein 6.5 Albumin 2.8 L Lipase 64 L Vitamin B12 Serum Folate Urine Color Yellow Urine Appearance Clear Urine pH 6.0 Ur Specific [place] 1.011 Urine Protein 3+ H Urine Glucose (UA) Trace Urine Ketones Negative Urine Blood 1+ H Urine Nitrite Negative Urine Bilirubin Negative Urine Urobilinogen 0.2 Ur Leukocyte Esterase Negative Urine WBC (Auto) 3 Urine RBC (Auto) 40 Urine Casts (Auto) 0 U Epithel Cells (Auto) 3 Urine Bacteria (Auto) 2 02/08/20 02/08/20 02/08/20 06:13 06:13 06:13 WBC 6.9 RBC 2.96 L Hgb 8.0 L Hct 24.7 L MCV 83.6 MCH 27.1 MCHC 32.4 RDW 15.0 Plt Count 256 MPV 7.6 Retic Count 1.28 Sodium 142 Potassium 5.2 H Chloride 117 H Carbon Dioxide 17 L Anion Gap 9 BUN 54.1 H Creatinine 2.9 H Est GFR (CKD-EPI)AfAm 26.42 Est GFR (CKD-EPI)NonAf 22.80 Random Glucose 111 H Hemoglobin A1c % 6.1 Calcium 8.4 L Phosphorus 5.8 H Magnesium 2.2 Iron 38 L TIBC 292 Iron Saturation 13 L Unsaturated IBC 254 Ferritin 45.4 Total Bilirubin AST ALT Alkaline Phosphatase Creatine Kinase Creatine Kinase Index CK-MB (CK-2) Troponin I B-Natriuretic Peptide Total Protein Albumin Lipase Vitamin B12 234 Serum Folate 8 Urine Color Urine Appearance Urine pH Ur Specific [place] Urine Protein Urine Glucose (UA) Urine Ketones Urine Blood Urine Nitrite Urine Bilirubin Urine Urobilinogen Ur Leukocyte Esterase Urine WBC (Auto) Urine RBC (Auto) Urine Casts (Auto) U Epithel Cells (Auto) Urine Bacteria (Auto) Current Medications Generic Name Dose Route Start Last Admin Trade Name Rickey PRN Reason Stop Dose Admin Amlodipine Besylate 10 mg 02/07/20 21:15 02/08/20 11:38 Norvasc - PO 10 mg DAILY CELESTINO Administration Cyanocobalamin 1,000 mcg 02/09/20 10:00 Vitamin B12 - PO DAILY [facility] Furosemide 80 mg 02/08/20 14:00 02/08/20 15:38 Lasix Injection - IVPUSH 80 mg BID@0600,1400 CELESTINO Administration Furosemide 40 mg 02/09/20 06:00 Lasix - PO BID@0600,1400 [facility] Glipizide 10 mg 02/09/20 07:00 Glucotrol Xl - PO ACBK [facility] Hydralazine HCl 75 mg 02/08/20 22:00 Apresoline - PO BID [facility] Insulin Aspart 1 vial 02/08/20 07:00 02/08/20 11:39 Novolog Vial Sliding Scale - SQ Not Given [facility] Protocol Metoprolol Succinate 50 mg 02/07/20 22:00 02/08/20 11:38 Toprol Xl - PO 50 mg BID CELESTINO Administration Sodium Zirconium Cyclosilicate 5 gm 02/08/20 10:00 02/08/20 11:38 Lokelma PO 5 gm DAILY CELESTINO Administration Home Medications Medication Instructions Recorded Amlodipine Besylate [Norvasc -] 10 mg PO DAILY tablet 02/21/19 Aspirin [ASA -] 81 mg PO DAILY tab.chew 02/21/19 Glipizide [Glipizide ER] 10 mg PO DAILY #60 tab.er.24 02/21/19 Furosemide [Lasix -] 40 mg PO BID@0600,1400 tablet 05/21/19 Metoprolol Succinate [Toprol XL -] 50 mg PO BID #60 tab.sr.24h 09/19/19 Hydralazine HCl 25 mg PO BID 02/07/20 ASSESSMENT AND PLAN: 59 year old male with CKD 3, DM 2, HTN, Chronic Systolic CHF, BPH, HLD, referred to ED by his [employer] for 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 1. Acute on Chronic mixed Systolic/Diastolic CHF CXR - pul venous congestion BNP [id number] Failed out-patient Lasix diuresis - started on Lasix 80mg IVP BID Echo 08/31/2019 shows EF of 30% with global hypokinesis of the LV Repeat Echo and Cardiology consult. I/Os, Daily weights. 2. Hyperkalemia ?sec to CKD3 s/p calcium gluconate K down to 5.2 from 6.1 Received Lokelma Monitor K 3. Normocytic Anemia, multifactorial - sec to Iron deficiency, B12 deficiency and CKD3/Chronic disease Continue Iron supplementation Add B12 supplementation for borderline B12 levels. Further Anemia management as per Nephrology 4. CKD 3 with Nephrotic range proteinuria - Creat appears to be at baseline. Nephrology eval. 5. DM 2 - Glipizide held. Maintain on Novolog sliding scale. 6. HTN - Continue Metoprolol, Hydralazine, Norvasc. 7. CAD (non-obstructive s/p Cardiac Cath 03/13) - continue Aspirin, Metoprolol, Statin. DVT Px - Heparin SQ
[2020-02-08] MEDS: HEPARIN NA (PORCINE) 5,000 UNITS/ML 1ML VIAL SQ SCH (22:11)
[2020-02-09] MEDS ORDERED: FUROSEMIDE 40 MG TABLET (FP) PO SCH (06:00)
[2020-02-09] MEDS: FUROSEMIDE 40 MG/4 ML INJECTABLE VIAL IVPUSH SCH ×2 (06:01→13:07)
[2020-02-09] MEDS: INSULIN SLIDING SCALE (NOVOLOG) 1 VIAL SQ SCH ×5 (06:07→21:23)
[2020-02-09] MEDS ORDERED: glipiZIDE-XL 10 MG TAB.ER.24 (FP) PO SCH (07:00)
[2020-02-09 08:31] LABS: EOS % 10.5 % (0-4.5); HEMATOCRIT 24.2 % (35.4-49); HEMOGLOBIN 7.9 GM/dL (11.7-16.9); LYMPH % 16.4 % (8-40); MCH 27.2 pg (25.7-33.7); MCHC 32.5 g/dl (32.0-35.9); MEAN CELL VOLUME 83.5 fl (80-96); MONO % 7.1 % (3.8-10.2); PLATELET COUNT 254 K/MM3 (134-434); RDW 15.2 % (11.9-15.9); WHITE BLOOD COUNT 6.4 K/mm3 (4.0-10.0)
[2020-02-09 08:52] LABS: ALBUMIN 2.6 g/dl (3.4-5.0); BILIRUBIN,TOTAL 0.4 mg/dL (0.2-1); BLOOD UREA NITROGEN 51.2 mg/dL (7-18); CALCIUM 7.7 mg/dL (8.5-10.1); PHOSPHOROUS 5.5 mg/dL (2.5-4.9); TOT PROT 6.2 g/dl (6.4-8.2)
[2020-02-09] MEDS ORDERED: DOCUSATE SODIUM 100 MG CAPSULE (FP) PO PRN (08:58)
[2020-02-09] MEDS: hydrALAZINE HCL 25 MG TABLET (FP) PO SCH ×2 (09:00→21:23)
[2020-02-09] MEDS: amLODIPine BESYLATE 10 MG TABLET (FP) PO SCH (09:00)
[2020-02-09] MEDS: HEPARIN NA (PORCINE) 5,000 UNITS/ML 1ML VIAL SQ SCH ×2 (09:00→21:23)
[2020-02-09] MEDS: CYANOCOBALAMIN 1,000 MCG TABLET (FP) PO SCH (09:01)
[2020-02-09] MEDS: FERROUS SO4 325 MG TABLET (FP) PO SCH (09:48)
--- NOTE | 2020-02-09 10:41 | PN ---
Progress Note (short form) - Note Progress Note: s no sob palps dizzy cp; le edema improving Current Medications Generic Name Dose Route Start Last Admin Trade Name Rickey PRN Reason Stop Dose Admin Amlodipine Besylate 10 mg 02/07/20 21:15 02/09/20 09:00 Norvasc - PO 10 mg DAILY CELESTINO Administration Cyanocobalamin 1,000 mcg 02/09/20 10:00 02/09/20 09:01 Vitamin B12 - PO 1,000 mcg DAILY CELESTINO Administration Docusate Sodium 100 mg 02/09/20 08:58 Colace - PO BID PRN CONSTIPATION Ferrous Sulfate 325 mg 02/09/20 10:00 02/09/20 09:48 Feosol - PO 325 mg BID CELESTINO Administration Furosemide 80 mg 02/08/20 14:00 02/09/20 06:01 Lasix Injection - IVPUSH 80 mg BID@0600,1400 CELESTINO Administration Heparin Sodium (Porcine) 5,000 unit 02/08/20 22:00 02/09/20 09:00 Heparin - SQ 5,000 unit BID CELESTINO Administration Hydralazine HCl 75 mg 02/08/20 22:00 02/09/20 09:00 Apresoline - PO 75 mg BID CELESTINO Administration Insulin Aspart 1 vial 02/08/20 07:00 02/09/20 06:20 Novolog Vial Sliding Scale - SQ Not Given ACHS [facility] Protocol Metoprolol Succinate 50 mg 02/07/20 22:00 02/09/20 09:00 Toprol Xl - PO 50 mg BID CELESTINO Administration Vital Signs Period Temp Pulse Resp BP Sys/Garner Pulse Ox Last 24 Hr 97.2 F-98.8 F 61-70 18-20 138-162/66-81 96-100 Constitutional: Yes: Well Nourished, No Distress, Calm Eyes: Yes: Conjunctiva Clear Neck: Yes: Supple, no JVD Respiratory: +bibasilar rales Gastrointestinal: Yes: Normal Bowel Sounds, Soft Cardiovascular: Yes: Regular Rate and Rhythm Heart Sounds: Yes: S1, S2 Edema: 2+ pitting edema bilaterally Neurological: Yes: Alert, Oriented Psychiatric: Yes: Alert, Oriented 02/09/20 07:10 02/09/20 07:10 Assessment/Plan echo 02/26/18 borderline low LV function, grade I diastolic dysfunction, mild to mod MR, mild TR, RV nl size and function, mild hypokinesis of inf wall Nuclear pharm stress 03/01/18 sm to mod zone of inferior wall reversible defect from base to apex consistent with mild intensity ischemia. nl LV function, ef 52% rest, 58% after stress cath 02/2018 nonobstructive CAD, nl EF EKG: sinus rhythm, LVH with repol CXR: no acute process echo 11/2018 mod conc LVH, nl LV function, RV nl, tr MR, tr TR, mild pulm HTN, tr AR Echo 09/15: mild conc LVH; severe, global LV hypo/EF 30%. nl RV. mild-mod TR. RVSP 42. 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
--- NOTE | 2020-02-09 12:00 | PN ---
Teaching Attending Note Name of Resident: Colby Shultz ATTENDING PHYSICIAN STATEMENT I saw and evaluated the patient. I reviewed the resident's note and discussed the case with the resident. I agree with the resident's findings and plan as documented. SUBJECTIVE: Feeling better, no further SOB at rest. LE edema improving. OBJECTIVE: Afebrile, Hemodynamically stable. Last Vital Signs Temp Pulse Resp BP Pulse Ox 98.4 F 64 18 148/80 98 02/09/20 09:54 02/09/20 09:54 02/09/20 09:54 02/09/20 09:54 02/09/20 10:00 heart - S1, S2, RRR Lungs - decreased air entry at bases Abdomen - Soft, non-tender. Bowel Sounds normal. Extremities - LE pitting edema ++ Neuro - AAO x 3. Tone/Power normal. Laboratory Results - last 24 hr 02/08/20 02/08/20 02/08/20 06:13 12:50 18:40 WBC RBC Hgb Hct MCV MCH MCHC RDW Plt Count MPV Absolute Neuts (auto) Neutrophils % Lymphocytes % Monocytes % Eosinophils % Basophils % Nucleated RBC % Sodium 142 Potassium 5.2 H Chloride 117 H Carbon Dioxide 17 L Anion Gap 9 BUN 54.1 H Creatinine 2.9 H Est GFR (CKD-EPI)AfAm 26.42 Est GFR (CKD-EPI)NonAf 22.80 POC Glucometer Random Glucose 111 H Calcium 8.4 L Phosphorus 5.8 H Magnesium 2.2 Iron 38 L TIBC 292 Iron Saturation 13 L Unsaturated IBC 254 Ferritin 45.4 Total Bilirubin AST ALT Alkaline Phosphatase Total Protein Albumin Vitamin B12 234 Serum Folate 8 Ur Random Creatinine 21.0 L U Random Total Protein 149.9 H Protein/Creatinin Ratio 7.1 COVID-19 (ROBERTO) Not detected 02/08/20 02/09/20 02/09/20 22:19 07:10 07:10 WBC 6.4 RBC 2.90 L Hgb 7.9 L Hct 24.2 L MCV 83.5 MCH 27.2 MCHC 32.5 RDW 15.2 Plt Count 254 MPV 8.0 Absolute Neuts (auto) 4.1 Neutrophils % 65.0 Lymphocytes % 16.4 Monocytes % 7.1 Eosinophils % 10.5 H Basophils % 1.0 Nucleated RBC % 0 Sodium 141 Potassium 5.0 Chloride 114 H Carbon Dioxide 21 Anion Gap 6 L BUN 51.2 H Creatinine 3.0 H Est GFR (CKD-EPI)AfAm 25.36 Est GFR (CKD-EPI)NonAf 21.88 POC Glucometer 167 Random Glucose 88 Calcium 7.7 L Phosphorus 5.5 H Magnesium 2.0 Iron TIBC Iron Saturation Unsaturated IBC Ferritin Total Bilirubin 0.4 AST 10 L ALT 11 L Alkaline Phosphatase 128 H Total Protein 6.2 L Albumin 2.6 L Vitamin B12 Serum Folate Ur Random Creatinine U Random Total Protein Protein/Creatinin Ratio COVID-19 (ROBERTO) 02/09/20 11:18 WBC RBC Hgb Hct MCV MCH MCHC RDW Plt Count MPV Absolute Neuts (auto) Neutrophils % Lymphocytes % Monocytes % Eosinophils % Basophils % Nucleated RBC % Sodium Potassium Chloride Carbon Dioxide Anion Gap BUN Creatinine Est GFR (CKD-EPI)AfAm Est GFR (CKD-EPI)NonAf POC Glucometer 128 Random Glucose Calcium Phosphorus Magnesium Iron TIBC Iron Saturation Unsaturated IBC Ferritin Total Bilirubin AST ALT Alkaline Phosphatase Total Protein Albumin Vitamin B12 Serum Folate Ur Random Creatinine U Random Total Protein Protein/Creatinin Ratio COVID-19 (ROBERTO) Current Medications Generic Name Dose Route Start Last Admin Trade Name Freq PRN Reason Stop Dose Admin Amlodipine Besylate 10 mg 02/07/20 21:15 02/09/20 09:00 Norvasc - PO 10 mg DAILY CELESTINO Administration Cyanocobalamin 1,000 mcg 02/09/20 10:00 02/09/20 09:01 Vitamin B12 - PO 1,000 mcg DAILY CELESTINO Administration Docusate Sodium 100 mg 02/09/20 08:58 Colace - PO BID PRN CONSTIPATION Ferrous Sulfate 325 mg 02/09/20 10:00 02/09/20 09:48 Feosol - PO 325 mg BID CELESTINO Administration Furosemide 80 mg 02/08/20 14:00 02/09/20 06:01 Lasix Injection - IVPUSH 80 mg BID@0600,1400 CELESTINO Administration Heparin Sodium (Porcine) 5,000 unit 02/08/20 22:00 02/09/20 09:00 Heparin - SQ 5,000 unit BID CELESTINO Administration Hydralazine HCl 75 mg 02/08/20 22:00 02/09/20 09:00 Apresoline - PO 75 mg BID CELESTINO Administration Iron Sucrose 100 mg/ Sodium 100 mls @ 200 mls/hr 02/09/20 13:00 Chloride IVPB 02/09/20 13:29 ONCE ONE Insulin Aspart 1 vial 02/08/20 07:00 02/09/20 11:20 Novolog Vial Sliding Scale - SQ Not Given [facility] Protocol Metoprolol Succinate 50 mg 02/07/20 22:00 02/09/20 09:00 Toprol Xl - PO 50 mg BID CELESTINO Administration Home Medications Medication Instructions Recorded Amlodipine Besylate [Norvasc -] 10 mg PO DAILY tablet 02/21/19 Aspirin [ASA -] 81 mg PO DAILY tab.chew 02/21/19 Glipizide [Glipizide ER] 10 mg PO DAILY #60 tab.er.24 02/21/19 Furosemide [Lasix -] 40 mg PO BID@0600,1400 tablet 05/21/19 Metoprolol Succinate [Toprol XL -] 50 mg PO BID #60 tab.sr.24h 09/19/19 Hydralazine HCl 25 mg PO BID 02/07/20 ASSESSMENT AND PLAN: 59 year old male with CKD 3, DM 2, HTN, Chronic Systolic CHF, BPH, HLD, 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 1. Acute on Chronic mixed Systolic/Diastolic CHF CXR - pul venous congestion BNP 01060 Failed out-patient Lasix diuresis - continue Lasix 80mg IVP BID Echo 08/31/2019 shows EF of 30% with global hypokinesis of the LV, repeat Echo shows EF 60%, moderate MR Cardiology following. I/Os, Daily weights. 2. Hyperkalemia ?sec to CKD3 s/p calcium gluconate K down to 5.0 from 6.1 s/p Lokelma Monitor K 3. Normocytic Anemia, multifactorial - sec to Iron deficiency (Iron Sat 13%), B12 deficiency and CKD3/Chronic disease Iron and B12 supplementation. No evidence of acute blood loss. Further JULIENNE investigation by GI as outpatient. 4. CKD 3 with Nephrotic range proteinuria - Creat appears to be at baseline. Nephrology following - may require outpatient Renal Bx. 5. DM 2 - Glipizide held. Maintain on Novolog sliding scale. 6. HTN - Continue Metoprolol, Hydralazine, Norvasc. 7. CAD (non-obstructive s/p Cardiac Cath 03/13) - continue Aspirin, Metoprolol, Statin. DVT Px - Heparin SQ
[2020-02-09] MEDS ORDERED: PT OWN MED DRAWER 7, Y5N ONE (12:58)
[2020-02-09] MEDS ORDERED: IRON SUCROSE INJECTION 100 MG in SODIUM CHLORIDE 95 ML IVPB ONE (13:00)
--- NOTE | 2020-02-09 13:09 | PN ---
Progress Note, Physician Chief Complaint: Leg swelling History of Present Illness: Seen and examined at the bedside awake and alert reports bilateral flank pain no hematuria, fever, chills sob stable leg swelling improving - Current Medication List Current Medications: Active Medications Amlodipine Besylate (Norvasc -) 10 mg PO DAILY [facility] Last Admin: 02/09/20 09:00 Dose: 10 mg Documented by: Cyanocobalamin (Vitamin B12 -) 1,000 mcg PO DAILY [facility] Last Admin: 02/09/20 09:01 Dose: 1,000 mcg Documented by: Docusate Sodium (Colace -) 100 mg PO BID PRN PRN Reason: CONSTIPATION Ferrous Sulfate (Feosol -) 325 mg PO BID [facility] Last Admin: 02/09/20 09:48 Dose: 325 mg Documented by: Furosemide (Lasix Injection -) 80 mg IVPUSH BID@0600,1400 [facility] Last Admin: 02/09/20 13:07 Dose: 80 mg Documented by: Heparin Sodium (Porcine) (Heparin -) 5,000 unit SQ BID [facility] Last Admin: 02/09/20 09:00 Dose: 5,000 unit Documented by: Hydralazine HCl (Apresoline -) 75 mg PO BID [facility] Last Admin: 02/09/20 09:00 Dose: 75 mg Documented by: Iron Sucrose 100 mg/ Sodium (Chloride) 100 mls @ 200 mls/hr IVPB ONCE ONE Stop: 02/09/20 13:29 Insulin Aspart (Novolog Vial Sliding Scale -) 1 vial SQ [facility]; Protocol Last Admin: 02/09/20 11:20 Dose: Not Given Documented by: Metoprolol Succinate (Toprol Xl -) 50 mg PO BID [facility] Last Admin: 02/09/20 09:00 Dose: 50 mg Documented by: - Objective Vital Signs: Vital Signs Temperature 98.4 F 02/09/20 09:54 Pulse Rate 64 02/09/20 09:54 Respiratory Rate 18 02/09/20 09:54 Blood Pressure 148/80 02/09/20 09:54 O2 Sat by Pulse Oximetry (%) 98 02/09/20 10:00 Constitutional: Yes: No Distress HENT: Yes: Atraumatic Neck: Yes: Supple Cardiovascular: Yes: Regular Rate and Rhythm. No: Murmur, Rub Respiratory: Yes: Regular, Diminished Gastrointestinal: Yes: Soft Extremities: No: Cyanosis Edema: Yes Neurological: Yes: Alert Labs: CBC, BMP 02/09/20 07:10 02/09/20 07:10 INR, PTT INR 1.04 (0.83-1.09) 02/07/20 16:43 Assessment/Plan 51 year old male with history of CKD (Cr 2-3) with nephrotic range proteinuria, diastolic HF, DM type 2, BPH and hyperlipidemia who presented from home with leg swelling, 1. Acute heart failure/volume overload 2. JASWINDER/CKD 3. Nephrotic range proteinuria with + PK 4. Hypertension 5. DM type 2 6. Hyperlipidemia 7. Hyperkalemia Renal function stable thus far Continue Lasix 80gm IV BID Trend daily weights Low sodium diet Defer JORGE/ARB given low eGFR and hyperkalemia Cr is at the upper limit of where he has been this year Trend renal function closely with diuresis etiology of CKD likely diabetic nephropathy despite having lot titer PK. C3/C4 and Anti-DS DNA negative which make it less likely that he has active lupus nephritis Biopsy can be considered as an outpatient as pt can also have FSGS Continue low sodium diet PRN Lokelma if K >5.5 Nutrition consult for education about low potassium diet Thank you Will follow Rufino Rudolph DO
--- NOTE | 2020-02-09 14:45 | PN ---
Physical Exam: SUBJECTIVE: Patient seen and examined at bedside. Patient was finishing his breakfast. Patient denies any chest pain, shortness of breath, increased swelling or any acute events overnight. Patients leg edema has decreased as lasix was increased, home medications continue, and Sequential Compression Device. OBJECTIVE: Vital Signs Period Temp Pulse Resp BP Sys/Garner Pulse Ox Last 24 Hr 97.2 F-98.8 F 61-70 18-20 138-162/68-81 96-100 GENERAL: The patient is awake, alert, and fully oriented, in no acute distress. HEAD: Normal with no signs of trauma. LUNGS: Breath sounds equal, clear to auscultation bilaterally, no wheezes, no crackles, no accessory muscle use. HEART: Regular rate and rhythm, S1, S2 without murmur, rub or gallop. ABDOMEN: Soft, nontender, nondistended, normoactive bowel sounds, no guarding, no rebound, no hepatosplenomegaly, no masses. EXTREMITIES: +1 edema bilaterally PSYCH: Normal mood, normal affect. SKIN: Warm, dry, normal turgor, no rashes or lesions noted Laboratory Results - last 24 hr 02/08/20 02/08/20 02/08/20 12:50 18:40 22:19 WBC RBC Hgb Hct MCV MCH MCHC RDW Plt Count MPV Absolute Neuts (auto) Neutrophils % Lymphocytes % Monocytes % Eosinophils % Basophils % Nucleated RBC % Sodium Potassium Chloride Carbon Dioxide Anion Gap BUN Creatinine Est GFR (CKD-EPI)AfAm Est GFR (CKD-EPI)NonAf POC Glucometer 167 Random Glucose Calcium Phosphorus Magnesium Total Bilirubin AST ALT Alkaline Phosphatase Total Protein Albumin Ur Random Creatinine 21.0 L U Random Total Protein 149.9 H Protein/Creatinin Ratio 7.1 COVID-19 (ROBERTO) Not detected 02/09/20 02/09/20 02/09/20 07:10 07:10 11:18 WBC 6.4 RBC 2.90 L Hgb 7.9 L Hct 24.2 L MCV 83.5 MCH 27.2 MCHC 32.5 RDW 15.2 Plt Count 254 MPV 8.0 Absolute Neuts (auto) 4.1 Neutrophils % 65.0 Lymphocytes % 16.4 Monocytes % 7.1 Eosinophils % 10.5 H Basophils % 1.0 Nucleated RBC % 0 Sodium 141 Potassium 5.0 Chloride 114 H Carbon Dioxide 21 Anion Gap 6 L BUN 51.2 H Creatinine 3.0 H Est GFR (CKD-EPI)AfAm 25.36 Est GFR (CKD-EPI)NonAf 21.88 POC Glucometer 128 Random Glucose 88 Calcium 7.7 L Phosphorus 5.5 H Magnesium 2.0 Total Bilirubin 0.4 AST 10 L ALT 11 L Alkaline Phosphatase 128 H Total Protein 6.2 L Albumin 2.6 L Ur Random Creatinine U Random Total Protein Protein/Creatinin Ratio COVID-19 (ROBERTO) Active Medications Generic Name Dose Route Start Last Admin Trade Name Freq PRN Reason Stop Dose Admin Amlodipine Besylate 10 mg 02/07/20 21:15 02/09/20 09:00 Norvasc - PO 10 mg DAILY CELESTINO Administration Cyanocobalamin 1,000 mcg 02/09/20 10:00 02/09/20 09:01 Vitamin B12 - PO 1,000 mcg DAILY CELESTINO Administration Docusate Sodium 100 mg 02/09/20 08:58 Colace - PO BID PRN CONSTIPATION Ferrous Sulfate 325 mg 02/09/20 10:00 02/09/20 09:48 Feosol - PO 325 mg BID CELESTINO Administration Furosemide 80 mg 02/08/20 14:00 02/09/20 13:07 Lasix Injection - IVPUSH 80 mg BID@0600,1400 CELESTINO Administration Heparin Sodium (Porcine) 5,000 unit 02/08/20 22:00 02/09/20 09:00 Heparin - SQ 5,000 unit BID CELESTINO Administration Hydralazine HCl 75 mg 02/08/20 22:00 02/09/20 09:00 Apresoline - PO 75 mg BID CELESTINO Administration Insulin Aspart 1 vial 02/08/20 07:00 02/09/20 11:20 Novolog Vial Sliding Scale - SQ Not Given [facility] Protocol Metoprolol Succinate 50 mg 02/07/20 22:00 02/09/20 09:00 Toprol Xl - PO 50 mg BID CELSETINO Administration ASSESSMENT/PLAN: Bob is a 59 year old male with a past medical history of stage 3 chronic kidney disease, diabetes melitus type 2, Chronic systolic congestive heart failure, htn/hld, who arrived to the ED at the behest of his cardiolgist Dr. Trejo for a K+ of 6.1 with EKG changes and acute exacerbation of CHF. #Acute exacerbation of systolic/diastolic CHF - ECHO preformed reveals EF of 60% - Chest xrays reveal mild pulmonary congestion - STRICT I/Os and Daily weights. - cardiology consulted #Hyperkalemia with ecg changes - patient admitted for a K of 6.1 and ekg changes - peaked t waves, widened qrs - patient given calcium gluconate - Potassium currently at 5 meq #Normocytic anemia - likely a result of iron deficiency - Iron Sat 13% - FOBT ordered - ordered B12 and Folate #DM 2 - Novolog sliding scale. #HTN - - home medication - Metoprolol - Hydralazine - Norvasc ATTENDING PHYSICIAN STATEMENT I saw and evaluated the patient. I reviewed the resident's note and discussed the case with the resident. I agree with the resident's findings and plan as documented. SUBJECTIVE: OBJECTIVE: ASSESSMENT AND PLAN:
--- NOTE | 2020-02-10 06:20 | PN ---
Progress Note, Physician Chief Complaint: denies CP/SOB/palps TELE: NSR, blocked APCs. History of Present Illness: hyper K Acute diastolic CHF CKD Nonsmoker - Current Medication List Current Medications: Active Medications Amlodipine Besylate (Norvasc -) 10 mg PO DAILY [facility] Last Admin: 02/09/20 09:00 Dose: 10 mg Documented by: Cyanocobalamin (Vitamin B12 -) 1,000 mcg PO DAILY [facility] Last Admin: 02/09/20 09:01 Dose: 1,000 mcg Documented by: Docusate Sodium (Colace -) 100 mg PO BID PRN PRN Reason: CONSTIPATION Ferrous Sulfate (Feosol -) 325 mg PO BID [facility] Last Admin: 02/09/20 09:48 Dose: 325 mg Documented by: Furosemide (Lasix Injection -) 80 mg IVPUSH BID@0600,1400 [facility] Last Admin: 02/09/20 13:07 Dose: 80 mg Documented by: Heparin Sodium (Porcine) (Heparin -) 5,000 unit SQ BID [facility] Last Admin: 02/09/20 21:23 Dose: 5,000 unit Documented by: Hydralazine HCl (Apresoline -) 75 mg PO BID [facility] Last Admin: 02/09/20 21:23 Dose: 75 mg Documented by: Insulin Aspart (Novolog Vial Sliding Scale -) 1 vial SQ [facility]; Protocol Last Admin: 02/09/20 21:23 Dose: 2 units Documented by: Metoprolol Succinate (Toprol Xl -) 50 mg PO BID [facility] Last Admin: 02/09/20 21:24 Dose: 50 mg Documented by: - Objective Vital Signs: Vital Signs Temperature 98.7 F 02/10/20 02:00 Pulse Rate 65 02/10/20 02:00 Respiratory Rate 19 02/10/20 02:00 Blood Pressure 112/56 L 02/10/20 02:00 O2 Sat by Pulse Oximetry (%) 98 02/09/20 21:00 Constitutional: Yes: No Distress, Calm Neck: Yes: Supple, Trachea Midline Cardiovascular: Yes: Regular Rate and Rhythm Respiratory: Yes: CTA Bilaterally (no rales) Gastrointestinal: Yes: Soft (nt) Edema: Yes Edema: LLE: 1+, RLE: 1+ Peripheral Pulses WNL: Yes Neurological: Yes: Alert, Oriented Labs: CBC, BMP 02/09/20 07:10 02/09/20 07:10 INR, PTT INR 1.04 (0.83-1.09) 02/07/20 16:43 Laboratory Tests 02/08/20 02/09/20 02/09/20 12:50 07:10 14:00 WBC Hgb Plt Count Sodium Potassium BUN Creatinine Magnesium Stool Occult Blood Negative PK Screen Pending Double Strand DNA Ab Pending COVID-19 (ROBERTO) Not detected 02/10/20 02/10/20 06:10 06:10 WBC 6.0 Hgb 7.5 L Plt Count 249 Sodium 144 Potassium 5.1 BUN 57.4 H Creatinine 3.1 H Magnesium 2.1 Stool Occult Blood PK Screen Double Strand DNA Ab COVID-19 (ROBERTO) - ....Imaging EKG: Image Reviewed Assessment/Plan DATA: Nuclear pharm stress 03/01/18 sm to mod zone of inferior wall reversible defect from base to apex consistent with mild intensity ischemia. 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
[2020-02-10] MEDS: INSULIN SLIDING SCALE (NOVOLOG) 1 VIAL SQ SCH ×4 (06:33→21:34)
[2020-02-10] MEDS: FUROSEMIDE 40 MG/4 ML INJECTABLE VIAL IVPUSH SCH ×2 (06:33→14:24)
[2020-02-10 07:01] VITALS: BMI 35.4
[2020-02-10 07:15] LABS: BASO % 0.6 % (0-2.0); EOS % 12.4 % (0-4.5); HEMATOCRIT 23.1 % (35.4-49); HEMOGLOBIN 7.5 GM/dL (11.7-16.9); LYMPH % 20.2 % (8-40); MCH 26.9 pg (25.7-33.7); MCHC 32.6 g/dl (32.0-35.9); MEAN CELL VOLUME 82.5 fl (80-96); MEAN PLT VOLUME 7.6 fl (7.5-11.1); NEUT % 58.8 % (42.8-82.8); PLATELET COUNT 249 K/MM3 (134-434); RDW 15.3 % (11.9-15.9)
[2020-02-10 07:50] LABS: BLOOD UREA NITROGEN 57.4 mg/dL (7-18); CALCIUM 7.9 mg/dL (8.5-10.1); MAGNESIUM 2.1 mg/dL (1.8-2.4); POTASSIUM 5.1 mmol/L (3.5-5.1)
[2020-02-10 07:53] LABS: CREATININE 3.1 mg/dL (0.55-1.3); PHOSPHOROUS 4.7 mg/dL (2.5-4.9)
[2020-02-10] MEDS ORDERED: PNEUMOC 13-VAL CONJ-DIP CRM/PF 0.5 ML DISP.SYRIN IM ONE (09:01)
[2020-02-10] MEDS: CYANOCOBALAMIN 1,000 MCG TABLET (FP) PO SCH (09:12)
[2020-02-10] MEDS: HEPARIN NA (PORCINE) 5,000 UNITS/ML 1ML VIAL SQ SCH ×2 (09:12→21:33)
[2020-02-10] MEDS: amLODIPine BESYLATE 10 MG TABLET (FP) PO SCH (09:13)
[2020-02-10] MEDS: hydrALAZINE HCL 25 MG TABLET (FP) PO SCH ×2 (09:13→21:32)
[2020-02-10] MEDS ORDERED: PNEUMOCOCCAL 23 VACCINE 0.5 ML VIAL IM ONE (11:00)
--- NOTE | 2020-02-10 13:18 | PN ---
Teaching Attending Note Name of Resident: Colby Shultz ATTENDING PHYSICIAN STATEMENT I saw and evaluated the patient. I reviewed the resident's note and discussed the case with the resident. I agree with the resident's findings and plan as documented. SUBJECTIVE: Feeling much better, no further SOB. LE edema improving. OBJECTIVE: Afebrile, Hemodynamically stable. Last Vital Signs Temp Pulse Resp BP Pulse Ox 98.1 F 65 18 159/83 97 % on RA 02/10/20 10:00 02/10/20 10:02/10/20 10:00 02/10/20 10:02/10/20 10:00 heart - S1, S2, RRR Lungs - decreased air entry/few crackles at bases Abdomen - Soft, non-tender. Bowel Sounds normal. Extremities - LE pitting edema + improving Neuro - AAO x 3. Tone/Power normal. Laboratory Results - last 24 hr 02/09/20 02/10/20 02/10/20 14:00 06:10 06:10 WBC 6.0 RBC 2.80 L Hgb 7.5 L Hct 23.1 L MCV 82.5 MCH 26.9 MCHC 32.6 RDW 15.3 Plt Count 249 MPV 7.6 Absolute Neuts (auto) 3.5 Neutrophils % 58.8 Lymphocytes % 20.2 D Monocytes % 8.0 Eosinophils % 12.4 H Basophils % 0.6 Nucleated RBC % 0 Sodium 144 Potassium 5.1 Chloride 115 H Carbon Dioxide 19 L Anion Gap 10 BUN 57.4 H Creatinine 3.1 H Est GFR (CKD-EPI)AfAm 24.38 Est GFR (CKD-EPI)NonAf 21.03 Random Glucose 94 Calcium 7.9 L Phosphorus 4.7 Magnesium 2.1 Stool Occult Blood Negative Current Medications Generic Name Dose Route Start Last Admin Trade Name Freq PRN Reason Stop Dose Admin Amlodipine Besylate 10 mg 02/07/20 21:15 02/10/20 09:13 Norvasc - PO 10 mg DAILY [facility] Administration Cyanocobalamin 1,000 mcg 02/09/20 10:00 02/10/20 09:12 Vitamin B12 - PO 1,000 mcg DAILY [facility] Administration Docusate Sodium 100 mg 02/09/20 08:58 Colace - PO BID PRN CONSTIPATION Ferrous Sulfate 325 mg 02/09/20 10:00 02/09/20 09:48 Feosol - PO 325 mg BID [facility] Administration Furosemide 80 mg 02/08/20 14:00 02/10/20 06:33 Lasix Injection - IVPUSH 80 mg BID@0600,1400 [facility] Administration Heparin Sodium (Porcine) 5,000 unit 02/08/20 22:00 02/10/20 09:12 Heparin - SQ 5,000 unit BID [facility] Administration Hydralazine HCl 75 mg 02/08/20 22:00 02/10/20 09:13 Apresoline - PO 75 mg BID [facility] Administration Insulin Aspart 1 vial 02/08/20 07:00 02/10/20 11:49 Novolog Vial Sliding Scale - SQ Not Given [facility] Protocol Metoprolol Succinate 50 mg 02/07/20 22:00 02/10/20 09:13 Toprol Xl - PO 50 mg BID [facility]LE[facility] Administration Home Medications Medication Instructions Recorded Amlodipine Besylate [Norvasc -] 10 mg PO DAILY tablet 02/21/19 Aspirin [ASA -] 81 mg PO DAILY tab.chew 02/21/19 Glipizide [Glipizide ER] 10 mg PO DAILY #60 tab.er.24 02/21/19 Furosemide [Lasix -] 40 mg PO BID@0600,1400 tablet 05/21/19 Metoprolol Succinate [Toprol XL -] 50 mg PO BID #60 tab.sr.24h 09/19/19 Hydralazine HCl 25 mg PO BID 02/07/20 ASSESSMENT AND PLAN: 59 year old male with CKD 3, DM 2, HTN, Chronic Systolic CHF, BPH, HLD, 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 1. Acute on Chronic mixed Systolic/Diastolic CHF CXR - pul venous congestion BNP 53500 Echo 08/31/2019 showed EF of 30% with global hypokinesis of the LV, repeat Echo 02/12 shows EF 60%, moderate MR Failed out-patient Lasix diuresis - continue Lasix 80mg IVP BID Cardiology following. I/Os, Daily weights. 2. Hyperkalemia ?sec to CKD3 s/p calcium gluconate K down to 5.1 from 6.1 s/p Lokelma Monitor K Nephrology following. 3. Normocytic Anemia, multifactorial - sec to Iron deficiency (Iron Sat 13%), B12 deficiency and CKD3/Chronic disease Iron and B12 supplementation. No evidence of acute blood loss. FOBT negative. Further JULIENNE investigation by GI as outpatient. 4. CKD 3 with Nephrotic range proteinuria - Creat appears to be at baseline. Nephrology following - may require outpatient Renal Bx. 5. DM 2 - Glipizide held. Maintain on Novolog sliding scale. 6. HTN - Continue Metoprolol, Hydralazine, Norvasc. 7. CAD (non-obstructive s/p Cardiac Cath 03/13) - continue Aspirin, Metoprolol, Statin. DVT Px - Heparin SQ
--- NOTE | 2020-02-10 13:50 | PN ---
Progress Note (short form) - Note Progress Note: 1. Acute heart failure/volume overload 2. JASWINDER/CKD 3. Nephrotic range proteinuria with + PK 4. Hypertension 5. DM type 2 6. Hyperlipidemia 7. Hyperkalemia Active Medications Amlodipine Besylate (Norvasc -) 10 mg PO DAILY [facility] Last Admin: 02/10/20 09:13 Dose: 10 mg Documented by: Cyanocobalamin (Vitamin B12 -) 1,000 mcg PO DAILY [facility] Last Admin: 02/10/20 09:12 Dose: 1,000 mcg Documented by: Docusate Sodium (Colace -) 100 mg PO BID PRN PRN Reason: CONSTIPATION Ferrous Sulfate (Feosol -) 325 mg PO BID [facility] Last Admin: 02/09/20 09:48 Dose: 325 mg Documented by: Furosemide (Lasix Injection -) 80 mg IVPUSH BID@0600,1400 [facility] Last Admin: 02/10/20 06:33 Dose: 80 mg Documented by: Heparin Sodium (Porcine) (Heparin -) 5,000 unit SQ BID [facility] Last Admin: 02/10/20 09:12 Dose: 5,000 unit Documented by: Hydralazine HCl (Apresoline -) 75 mg PO BID [facility] Last Admin: 02/10/20 09:13 Dose: 75 mg Documented by: Insulin Aspart (Novolog Vial Sliding Scale -) 1 vial SQ [facility]; Protocol Last Admin: 02/10/20 11:49 Dose: Not Given Documented by: Metoprolol Succinate (Toprol Xl -) 50 mg PO BID [facility] Last Admin: 02/10/20 09:13 Dose: 50 mg Documented by: Last Vital Signs Temp Pulse Resp BP Pulse Ox 98.1 F 65 18 159/83 97 02/10/20 10:00 02/10/20 10:00 02/10/20 10:00 02/10/20 10:00 02/10/20 10:00 alert in nad Lungs clear Heart reg Abd soft nontender Ext no apparent edema SCDs are on CBC, BMP 02/10/20 06:10 02/10/20 06:10 CKD CHF Plan- continue diuresisi
--- NOTE | 2020-02-10 15:54 | PN ---
Physical Exam: SUBJECTIVE: Patient seen and examined at bedside. Patient does not endorse overnight events. Patients legs have reduced in edema. OBJECTIVE: Vital Signs Period Temp Pulse Resp BP Sys/Garner Pulse Ox Last 24 Hr 97.7 F-98.7 F 63-68 17-19 112-159/56-83 97-98 GENERAL: The patient is awake, alert, and fully oriented, in no acute distress. HEAD: Normal with no signs of trauma. EYES: PERRL, extraocular movements intact, sclera anicteric, conjunctiva clear. No ptosis. ENT: Ears normal, nares patent, oropharynx clear without exudates, moist mucous membranes. NECK: Trachea midline, full range of motion, supple. LUNGS: Breath sounds equal, clear to auscultation bilaterally, no wheezes, no crackles, no accessory muscle use. HEART: Regular rate and rhythm, S1, S2 without murmur, rub or gallop. ABDOMEN: Soft, nontender, nondistended, normoactive bowel sounds, no guarding, no rebound, no hepatosplenomegaly, no masses. EXTREMITIES:1+ edema bl NEUROLOGICAL: Cranial nerves II through XII grossly intact. Normal speech, gait not observed. PSYCH: Normal mood, normal affect. SKIN: Warm, dry, normal turgor, no rashes or lesions noted Laboratory Results - last 24 hr 02/09/20 02/09/20 02/10/20 07:10 14:00 06:10 WBC 6.0 RBC 2.80 L Hgb 7.5 L Hct 23.1 L MCV 82.5 MCH 26.9 MCHC 32.6 RDW 15.3 Plt Count 249 MPV 7.6 Absolute Neuts (auto) 3.5 Neutrophils % 58.8 Lymphocytes % 20.2 D Monocytes % 8.0 Eosinophils % 12.4 H Basophils % 0.6 Nucleated RBC % 0 Sodium Potassium Chloride Carbon Dioxide Anion Gap BUN Creatinine Est GFR (CKD-EPI)AfAm Est GFR (CKD-EPI)NonAf Random Glucose Calcium Phosphorus Magnesium Stool Occult Blood Negative Double Strand DNA Ab 1 02/10/20 06:10 WBC RBC Hgb Hct MCV MCH MCHC RDW Plt Count MPV Absolute Neuts (auto) Neutrophils % Lymphocytes % Monocytes % Eosinophils % Basophils % Nucleated RBC % Sodium 144 Potassium 5.1 Chloride 115 H Carbon Dioxide 19 L Anion Gap 10 BUN 57.4 H Creatinine 3.1 H Est GFR (CKD-EPI)AfAm 24.38 Est GFR (CKD-EPI)NonAf 21.03 Random Glucose 94 Calcium 7.9 L Phosphorus 4.7 Magnesium 2.1 Stool Occult Blood Double Strand DNA Ab Active Medications Generic Name Dose Route Start Last Admin Trade Name Freq PRN Reason Stop Dose Admin Amlodipine Besylate 10 mg 02/07/20 21:15 02/10/20 09:13 Norvasc - PO 10 mg DAILY [facility] Administration Cyanocobalamin 1,000 mcg 02/09/20 10:00 02/10/20 09:12 Vitamin B12 - PO 1,000 mcg DAILY [facility] Administration Docusate Sodium 100 mg 02/09/20 08:58 Colace - PO BID PRN CONSTIPATION Ferrous Sulfate 325 mg 02/09/20 10:00 02/09/20 09:48 Feosol - PO 325 mg BID [facility] Administration Furosemide 80 mg 02/08/20 14:00 02/10/20 14:24 Lasix Injection - IVPUSH 80 mg BID@0600,1400 [facility] Administration Heparin Sodium (Porcine) 5,000 unit 02/08/20 22:00 02/10/20 09:12 Heparin - SQ 5,000 unit BID [facility] Administration Hydralazine HCl 75 mg 02/08/20 22:00 02/10/20 09:13 Apresoline - PO 75 mg BID [facility] Administration Insulin Aspart 1 vial 02/08/20 07:00 02/10/20 11:49 Novolog Vial Sliding Scale - SQ Not Given ACHS [facility] Protocol Metoprolol Succinate 50 mg 02/07/20 22:00 02/10/20 09:13 Toprol Xl - PO 50 mg BID [facility] Administration ASSESSMENT/PLAN: Bob is a 59 year old male with a past medical history of stage 3 chronic kidney disease, diabetes melitus type 2, Chronic systolic congestive heart failure, htn/hld, who arrived to the ED at the behest of his cardiolgist Dr. Aisha valle for a K+ of 6.1 with EKG changes and acute exacerbation of CHF. #Acute exacerbation of systolic/diastolic CHF - ECHO preformed reveals EF of 60% - cardiology consulted and awaiting dispo for patient. - STRICT I/Os and Daily weights patient has lost 5 lbs - patient has been urinating well #Hyperkalemia with ecg changes - patient admitted for a K of 6.1 and ekg changes - peaked t waves, widened qrs - patient given calcium gluconate - Potassium currently at 5 meq #Normocytic anemia - likely a result of iron deficiency - FOBT negative #DM 2 - Novolog sliding scale. #HTN - home medication - Metoprolol - Hydralazine - Norvasc Visit type - Emergency Visit Emergency Visit: Yes ED Registration Date: 02/07/20 Care time: The patient presented to the Emergency Department on the above date and was hospitalized for further evaluation of their emergent condition. - New Patient This patient is new to me today: No - Critical Care Critical Care patient: No - Discharge Referral Referred to [facility] Med P.C.: No ATTENDING PHYSICIAN STATEMENT I saw and evaluated the patient. I reviewed the resident's note and discussed the case with the resident. I agree with the resident's findings and plan as documented. SUBJECTIVE: OBJECTIVE: ASSESSMENT AND PLAN:
[2020-02-10] MEDS: FERROUS SO4 325 MG TABLET (FP) PO SCH (21:33)
[2020-02-11 01:17] LABS: ALBUMIN 2.8 g/dl (3.4-5.0); BILIRUBIN,TOTAL 0.3 mg/dL (0.2-1); BLOOD UREA NITROGEN 59.4 mg/dL (7-18); CREATININE 3.2 mg/dL (0.55-1.3); POTASSIUM 4.7 mmol/L (3.5-5.1); TOT PROT 6.6 g/dl (6.4-8.2)
[2020-02-11] MEDS: FUROSEMIDE 40 MG/4 ML INJECTABLE VIAL IVPUSH SCH ×2 (05:46→14:06)
[2020-02-11] MEDS: INSULIN SLIDING SCALE (NOVOLOG) 1 VIAL SQ SCH ×4 (06:00→22:19)
--- NOTE | 2020-02-11 06:55 | PN ---
Progress Note, Physician Chief Complaint: HF History of Present Illness: denies sob, but has not walked in chaney. no cp, palp, swelling - Current Medication List Current Medications: Active Medications Amlodipine Besylate (Norvasc -) 10 mg PO DAILY [facility] Last Admin: 02/10/20 09:13 Dose: 10 mg Documented by: Cyanocobalamin (Vitamin B12 -) 1,000 mcg PO DAILY [facility] Last Admin: 02/10/20 09:12 Dose: 1,000 mcg Documented by: Docusate Sodium (Colace -) 100 mg PO BID PRN PRN Reason: CONSTIPATION Ferrous Sulfate (Feosol -) 325 mg PO BID [facility] Last Admin: 02/10/20 21:33 Dose: 325 mg Documented by: Furosemide (Lasix Injection -) 80 mg IVPUSH BID@0600,1400 [facility] Last Admin: 02/11/20 05:46 Dose: 80 mg Documented by: Heparin Sodium (Porcine) (Heparin -) 5,000 unit SQ BID [facility] Last Admin: 02/10/20 21:33 Dose: 5,000 unit Documented by: Hydralazine HCl (Apresoline -) 75 mg PO BID [facility] Last Admin: 02/10/20 21:32 Dose: 75 mg Documented by: Insulin Aspart (Novolog Vial Sliding Scale -) 1 vial SQ [facility]; Protocol Last Admin: 02/11/20 06:00 Dose: Not Given Documented by: Metoprolol Succinate (Toprol Xl -) 50 mg PO BID [facility] Last Admin: 02/10/20 21:32 Dose: 50 mg Documented by: - Objective Vital Signs: Vital Signs Temperature 98.8 F 02/11/20 06:00 Pulse Rate 70 02/11/20 06:00 Respiratory Rate 18 02/11/20 06:00 Blood Pressure 150/78 02/11/20 06:00 O2 Sat by Pulse Oximetry (%) 97 02/10/20 21:00 Constitutional: Yes: Well Nourished, No Distress, Calm Cardiovascular: Yes: Regular Rate and Rhythm, S1, S2. No: JVD, Gallop, Murmur Respiratory: Yes: Regular, CTA Bilaterally. 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 wt down to 193, was 187-190 after hosp discharge 10/13 office visits, maintained on lasix 120 bid. - same lasix today--suspect he is nearly euvolemic, anticipate discharge tomorrow. - plan to discharge on torsemide for better bioavailability (80 bid dose) - monitor daily weights, Cr, lytes hyperkalemia, JASWINDER on CKD: - received calcium gluconate, lasix, k improved - monitor Cr with diuresis - baseline creat 2.8-3.4; renal fxn stable here - renal following CAD: - nonobstructive on cath 02/2018 - continue statin, aspirin HTN: - continue amlodipine, hydralazine (was on 75 mg BID), metoprolol - bp moderately elevated--observe trend with diuresis HLD: - cont statin
[2020-02-11 07:19] LABS: BLOOD UREA NITROGEN 57.6 mg/dL (7-18); CALCIUM 8.3 mg/dL (8.5-10.1); CREATININE 3.1 mg/dL (0.55-1.3); MAGNESIUM 2.1 mg/dL (1.8-2.4); PHOSPHOROUS 4.6 mg/dL (2.5-4.9); POTASSIUM 4.9 mmol/L (3.5-5.1)
[2020-02-11] MEDS: hydrALAZINE HCL 25 MG TABLET (FP) PO SCH ×2 (10:12→22:18)
[2020-02-11] MEDS: amLODIPine BESYLATE 10 MG TABLET (FP) PO SCH (10:13)
[2020-02-11] MEDS: HEPARIN NA (PORCINE) 5,000 UNITS/ML 1ML VIAL SQ SCH ×2 (10:13→22:19)
[2020-02-11] MEDS: CYANOCOBALAMIN 1,000 MCG TABLET (FP) PO SCH (10:13)
[2020-02-11] MEDS: FERROUS SO4 325 MG TABLET (FP) PO SCH ×2 (10:13→22:18)
--- NOTE | 2020-02-11 14:13 | PN ---
Progress Note (short form) - Note Progress Note: 1. Acute heart failure/volume overload 2. JASWINDER/CKD 3. Nephrotic range proteinuria with + PK 4. Hypertension 5. DM type 2 6. Hyperlipidemia 7. Hyperkalemia Active Medications Amlodipine Besylate (Norvasc -) 10 mg PO DAILY [facility] Last Admin: 02/11/20 10:13 Dose: 10 mg Documented by: Cyanocobalamin (Vitamin B12 -) 1,000 mcg PO DAILY [facility] Last Admin: 02/11/20 10:13 Dose: 1,000 mcg Documented by: Docusate Sodium (Colace -) 100 mg PO BID PRN PRN Reason: CONSTIPATION Ferrous Sulfate (Feosol -) 325 mg PO BID [facility] Last Admin: 02/11/20 10:13 Dose: 325 mg Documented by: Furosemide (Lasix Injection -) 80 mg IVPUSH BID@0600,1400 [facility] Last Admin: 02/11/20 14:06 Dose: 80 mg Documented by: Heparin Sodium (Porcine) (Heparin -) 5,000 unit SQ BID [facility] Last Admin: 02/11/20 10:13 Dose: 5,000 unit Documented by: Hydralazine HCl (Apresoline -) 75 mg PO BID [facility] Last Admin: 02/11/20 10:12 Dose: 75 mg Documented by: Insulin Aspart (Novolog Vial Sliding Scale -) 1 vial SQ [facility]; Protocol Last Admin: 02/11/20 11:53 Dose: 2 units Documented by: Metoprolol Succinate (Toprol Xl -) 50 mg PO BID [facility] Last Admin: 02/11/20 10:13 Dose: 50 mg Documented by: Last Vital Signs Temp Pulse Resp BP Pulse Ox 97.5 F L 64 18 181/87 H 99 02/11/20 10:00 02/11/20 10:00 02/11/20 10:00 02/11/20 10:00 02/11/20 09:00 alert in nad Lungs clear Heart reg Abd soft nontender Ext no apparent edema SCDs are on CBC, BMP 02/10/20 06:10 02/11/20 05:42 CBC, BMP 02/10/20 06:10 02/10/20 06:10 CKD CHF Plan- continue diuresisi
--- NOTE | 2020-02-11 14:39 | PN ---
Teaching Attending Note Name of Resident: Valeriano Harrison ATTENDING PHYSICIAN STATEMENT I saw and evaluated the patient. I reviewed the resident's note and discussed the case with the resident. I agree with the resident's findings and plan as documented. SUBJECTIVE: Feeling much better, no further SOB. LE edema improving. OBJECTIVE: Afebrile, Hemodynamically stable. Last Vital Signs Temp Pulse Resp BP Pulse Ox 97.5 F L 64 18 181/87 H 99 02/11/20 10:00 02/11/20 10:00 02/11/20 10:02/11/20 10:02/11/20 09:00 heart - S1, S2, RRR Lungs - decreased air entry/few crackles at bases Abdomen - Soft, non-tender. Bowel Sounds normal. Extremities - LE edema + improving Neuro - AAO x 3. Tone/Power normal. Laboratory Results - last 24 hr 02/09/20 02/11/20 02/11/20 07:10 00:30 05:42 Sodium 139 141 Potassium 4.7 4.9 Chloride 109 H 110 H Carbon Dioxide 23 20 L Anion Gap 7 L 11 BUN 59.4 H 57.6 H Creatinine 3.2 H 3.1 H Est GFR (CKD-EPI)AfAm 23.46 24.38 Est GFR (CKD-EPI)NonAf 20.24 21.03 Random Glucose 129 H 105 Calcium 8.0 L 8.3 L Phosphorus 4.6 Magnesium 2.1 Total Bilirubin 0.3 AST 10 L ALT 13 Alkaline Phosphatase 130 H Total Protein 6.6 Albumin 2.8 L Double Strand DNA Ab 1 Current Medications Generic Name Dose Route Start Last Admin Trade Name Rickey PRN Reason Stop Dose Admin Amlodipine Besylate 10 mg 02/07/20 21:15 02/11/20 10:13 Norvasc - PO 10 mg DAILY [facility] Administration Cyanocobalamin 1,000 mcg 02/09/20 10:00 02/11/20 10:13 Vitamin B12 - PO 1,000 mcg DAILY [facility] Administration Docusate Sodium 100 mg 02/09/20 08:58 Colace - PO BID PRN CONSTIPATION Ferrous Sulfate 325 mg 02/09/20 10:00 02/11/20 10:13 Feosol - PO 325 mg BID [facility] Administration Furosemide 80 mg 02/08/20 14:00 02/11/20 14:06 Lasix Injection - IVPUSH 80 mg BID@0600,1400 [facility] Administration Heparin Sodium (Porcine) 5,000 unit 02/08/20 22:00 02/11/20 10:13 Heparin - SQ 5,000 unit BID [facility] Administration Hydralazine HCl 75 mg 02/08/20 22:00 02/11/20 10:12 Apresoline - PO 75 mg BID [facility] Administration Insulin Aspart 1 vial 02/08/20 07:00 02/11/20 11:53 Novolog Vial Sliding Scale - SQ 2 units ACHS [facility] Administration Protocol Metoprolol Succinate 50 mg 02/07/20 22:00 02/11/20 10:13 Toprol Xl - PO 50 mg BID [facility] Administration Home Medications Medication Instructions Recorded Amlodipine Besylate [Norvasc -] 10 mg PO DAILY tablet 02/21/19 Aspirin [ASA -] 81 mg PO DAILY tab.chew 02/21/19 Glipizide [Glipizide ER] 10 mg PO DAILY #60 tab.er.24 02/21/19 Furosemide [Lasix -] 40 mg PO BID@0600,1400 tablet 05/21/19 Metoprolol Succinate [Toprol XL -] 50 mg PO BID #60 tab.sr.24h 09/19/19 Hydralazine HCl 25 mg PO BID 02/07/20 ASSESSMENT AND PLAN: 59 year old male with CKD 3, DM 2, HTN, Chronic Systolic CHF, BPH, HLD, referred to ED by 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 1. Acute on Chronic mixed Systolic/Diastolic CHF CXR - pul venous congestion BNP [id number] Echo 08/31/2019 showed EF of 30% with global hypokinesis of the LV, repeat Echo shows EF 60%, moderate MR Failed out-patient Lasix diuresis - responded to in-patient diuresis with Lasix 80mg IVP BID Cardiology evaluated and recommends discharge on Torsemide. I/Os, Daily weights. 2. Hyperkalemia ?sec to CKD3 s/p calcium gluconate K down to 4.9 from 6.1 s/p Lokelma Monitor K Nephrology following. 3. Normocytic Anemia, multifactorial - sec to Iron deficiency (Iron Sat 13%), B12 deficiency and CKD3/Chronic disease Iron and B12 supplementation. No evidence of acute blood loss. FOBT negative. Further JULIENNE investigation by GI as outpatient. 4. CKD 3 with Nephrotic range proteinuria - Creat appears to be at baseline. Nephrology following - may require outpatient Renal Bx. 5. DM 2 - Glipizide held. Maintain on Novolog sliding scale. 6. HTN - Continue Metoprolol, Hydralazine, Norvasc. 7. CAD (non-obstructive s/p Cardiac Cath 03/13) - continue Aspirin, Metoprolol, Statin. DVT Px - Heparin SQ
--- NOTE | 2020-02-11 18:04 | PN ---
Physical Exam: SUBJECTIVE: Patient seen and examined. Pt afebrile and asymptomatic. No overnight events. OBJECTIVE: Vital Signs Period Temp Pulse Resp BP Sys/Garner Pulse Ox Last 24 Hr 97.5 F-99.0 F 64-70 18-18 150-181/78-90 97-99 GENERAL: The patient is awake, alert, and fully oriented, in no acute distress. EYES: PERRL, extraocular movements intact, sclera anicteric, No ptosis. ENT: moist mucous membranes. NECK: Trachea midline, full range of motion, supple. LUNGS: Breath sounds equal, clear to auscultation bilaterally, no wheezes, mild crackles b/l lung bases HEART: Regular rate and rhythm, S1, S2 without murmur, rub or gallop. ABDOMEN: Soft, nontender, nondistended, normoactive bowel sounds, no guarding EXTREMITIES: 2+ pulses, warm, well-perfused, 3+ edema b/l LE NEUROLOGICAL: Normal speech, gait not observed. PSYCH: Normal mood, normal affect. SKIN: Warm, dry, normal turgor, no rashes or lesions noted Laboratory Results - last 24 hr 02/11/20 02/11/20 02/11/20 00:30 05:42 17:05 Sodium 139 141 Potassium 4.7 4.9 Chloride 109 H 110 H Carbon Dioxide 23 20 L Anion Gap 7 L 11 BUN 59.4 H 57.6 H Creatinine 3.2 H 3.1 H Est GFR (CKD-EPI)AfAm 23.46 24.38 Est GFR (CKD-EPI)NonAf 20.24 21.03 POC Glucometer 97 Random Glucose 129 H 105 Calcium 8.0 L 8.3 L Phosphorus 4.6 Magnesium 2.1 Total Bilirubin 0.3 AST 10 L ALT 13 Alkaline Phosphatase 130 H Total Protein 6.6 Albumin 2.8 L Active Medications Generic Name Dose Route Start Last Admin Trade Name Freq PRN Reason Stop Dose Admin Amlodipine Besylate 10 mg 02/07/20 21:15 02/11/20 10:13 Norvasc - PO 10 mg DAILY [facility] Administration Cyanocobalamin 1,000 mcg 02/09/20 10:00 02/11/20 10:13 Vitamin B12 - PO 1,000 mcg DAILY [facility] Administration Docusate Sodium 100 mg 02/09/20 08:58 Colace - PO BID PRN CONSTIPATION Ferrous Sulfate 325 mg 02/09/20 10:00 02/11/20 10:13 Feosol - PO 325 mg BID [facility] Administration Furosemide 80 mg 02/08/20 14:00 02/11/20 14:06 Lasix Injection - IVPUSH 80 mg BID@0600,1400 [facility] Administration Heparin Sodium (Porcine) 5,000 unit 02/08/20 22:00 02/11/20 10:13 Heparin - SQ 5,000 unit BID [facility] Administration Hydralazine HCl 75 mg 02/08/20 22:00 02/11/20 10:12 Apresoline - PO 75 mg BID [facility] Administration Insulin Aspart 1 vial 02/08/20 07:00 02/11/20 17:06 Novolog Vial Sliding Scale - SQ Not Given ACHS [facility] Protocol Metoprolol Succinate 50 mg 02/07/20 22:00 02/11/20 10:13 Toprol Xl - PO 50 mg BID [facility] Administration ASSESSMENT/PLAN: 59 year old male with CKD 3, DM 2, HTN, Chronic Systolic CHF, BPH, HLD, presents to the ED from [employer] office for Hyperkalemia 2/2 to likely CKD and CHF exacerbation #Acute on Chronic mixed Systolic/Diastolic CHF CXR -pul venous congestion, BNP elevated Echo 08/31/2019 showed EF of 30% with global hypokinesis of the LV repeat Echo 02/12 shows EF 60% Failed out-patient Lasix diuresis cont Lasix 80mg IVP BID, pt improving Cardiology evaluated and recommends discharge on Torsemide for better bioavailability (80 bid dose) I/Os, Daily weights #Hyperkalemia likely 2/2 CKD3 s/p calcium gluconate Monitor K Nephrology following stable #Normocytic Anemia 2/2 to Iron deficiency (Iron Sat 13%), B12 deficiency and CKD3/Chronic disease Iron and B12 supplementation. No evidence of acute blood loss. FOBT negative. Further JULIENNE investigation by GI as outpatient #CKD 3 proteinuria in nephrotic range baseline cre Nephrology following may require outpatient Renal Bx. pending PK and ds abs #DM 2 Glipizide held. Maintain on Novolog sliding scale. #HTN Continue Metoprolol, Hydralazine, Norvasc. #CAD (non-obstructive s/p Cardiac Cath 03/13) continue Aspirin, Metoprolol, Statin. #DVT Px Heparin SQ Dispo: d/c planning for tomorrow Visit type - Emergency Visit Emergency Visit: Yes ED Registration Date: 02/07/20 Care time: The patient presented to the Emergency Department on the above date and was hospitalized for further evaluation of their emergent condition. - New Patient This patient is new to me today: Yes Date on this admission: 02/11/20 - Critical Care Critical Care patient: No - Discharge Referral Referred to [facility] Med P.C.: No ATTENDING PHYSICIAN STATEMENT I saw and evaluated the patient. I reviewed the resident's note and discussed the case with the resident. I agree with the resident's findings and plan as documented. SUBJECTIVE: OBJECTIVE: ASSESSMENT AND PLAN:
[2020-02-12] MEDS: FUROSEMIDE 40 MG/4 ML INJECTABLE VIAL IVPUSH SCH (06:17)
[2020-02-12] MEDS: INSULIN SLIDING SCALE (NOVOLOG) 1 VIAL SQ SCH ×2 (06:23→11:40)
[2020-02-12 08:23] LABS: HEMOGLOBIN 8.4 GM/dL (11.7-16.9); MCH 26.8 pg (25.7-33.7); MCHC 32.3 g/dl (32.0-35.9); MEAN CELL VOLUME 82.8 fl (80-96); MEAN PLT VOLUME 7.4 fl (7.5-11.1); PLATELET COUNT 273 K/MM3 (134-434); RBC 3.14 M/mm3 (4.00-5.60); WHITE BLOOD COUNT 6.5 K/mm3 (4.0-10.0)
[2020-02-12 08:40] LABS: BLOOD UREA NITROGEN 61.6 mg/dL (7-18); CALCIUM 8.4 mg/dL (8.5-10.1); CREATININE 3.1 mg/dL (0.55-1.3); POTASSIUM 4.6 mmol/L (3.5-5.1)
[2020-02-12] MEDS: hydrALAZINE HCL 25 MG TABLET (FP) PO SCH (09:33)
[2020-02-12] MEDS: HEPARIN NA (PORCINE) 5,000 UNITS/ML 1ML VIAL SQ SCH (09:33)
[2020-02-12] MEDS: CYANOCOBALAMIN 1,000 MCG TABLET (FP) PO SCH (09:34)
[2020-02-12] MEDS: FERROUS SO4 325 MG TABLET (FP) PO SCH (09:34)
[2020-02-12] MEDS: amLODIPine BESYLATE 10 MG TABLET (FP) PO SCH (09:34)
--- NOTE | 2020-02-12 12:51 | DS ---
Physical Exam: SUBJECTIVE: Feeling much better, no further SOB. LE edema improving. OBJECTIVE: Afebrile, Hemodynamically stable. Last Vital Signs Temp Pulse Resp BP Pulse Ox 97.5 F L 64 18 158/75 99 02/11/20 10:00 02/11/20 10:00 02/11/20 10:00 02/11/20 10:00 02/11/20 09:00 heart - S1, S2, RRR Lungs - decreased air entry/few crackles at bases - improved Abdomen - Soft, non-tender. Bowel Sounds normal. Extremities - LE edema + improving, venous stasis skin changes. Neuro - AAO x 3. Tone/Power normal. Laboratory Tests 02/07/20 02/07/20 02/07/20 16:43 16:43 16:43 WBC 5.9 RBC 2.71 L Hgb 7.4 L Hct 22.9 L D MCV 84.4 MCH 27.2 MCHC 32.2 RDW 15.2 Plt Count 237 D MPV 7.9 Absolute Neuts (auto) 4.1 Neutrophils % 69.7 Lymphocytes % 14.7 D Monocytes % 7.5 Eosinophils % 7.3 H Basophils % 0.8 Nucleated RBC % 0 Retic Count PT with INR 12.30 INR 1.04 Sodium Potassium Chloride Carbon Dioxide Anion Gap BUN Creatinine Est GFR (CKD-EPI)AfAm Est GFR (CKD-EPI)NonAf POC Glucometer Random Glucose Hemoglobin A1c % Calcium Phosphorus Magnesium Iron TIBC Iron Saturation Unsaturated IBC Ferritin Total Bilirubin AST ALT Alkaline Phosphatase Creatine Kinase Creatine Kinase Index CK-MB (CK-2) Troponin I B-Natriuretic Peptide Total Protein Albumin Lipase Vitamin B12 Serum Folate Urine Color Yellow Urine Appearance Clear Urine pH 5.5 Ur Specific Cruger 1.014 Urine Protein 3+ H Urine Glucose (UA) Trace Urine Ketones Negative Urine Blood 1+ H Urine Nitrite Negative Urine Bilirubin Negative Urine Urobilinogen 1.0 Ur Leukocyte Esterase Negative Urine WBC (Auto) 10 Urine RBC (Auto) 44 Urine Casts (Auto) 1 U Epithel Cells (Auto) 6 Urine Bacteria (Auto) 5 Ur Random Creatinine U Random Total Protein Protein/Creatinin Ratio Stool Occult Blood Double Strand DNA Ab COVID-19 (ROBERTO) 02/07/20 02/08/20 02/08/20 16:43 00:00 01:30 WBC RBC Hgb Hct MCV MCH MCHC RDW Plt Count MPV Absolute Neuts (auto) Neutrophils % Lymphocytes % Monocytes % Eosinophils % Basophils % Nucleated RBC % Retic Count PT with INR INR Sodium 140 142 Potassium 5.3 H 5.1 Chloride 115 H 117 H Carbon Dioxide 17 L 18 L Anion Gap 8 7 L BUN 53.4 H 53.2 H Creatinine 3.1 H 3.0 H Est GFR (CKD-EPI)AfAm 24.38 25.36 Est GFR (CKD-EPI)NonAf 21.03 21.88 POC Glucometer Random Glucose 114 H 118 H Hemoglobin A1c % Calcium 7.8 L 8.1 L Phosphorus Magnesium 2.2 Iron TIBC Iron Saturation Unsaturated IBC Ferritin Total Bilirubin 0.3 AST 16 ALT 15 Alkaline Phosphatase 137 H Creatine Kinase 506 H Creatine Kinase Index 0.6 CK-MB (CK-2) 3.1 Troponin I < 0.02 B-Natriuretic Peptide 89949.9 H Total Protein 6.5 Albumin 2.8 L Lipase 64 L Vitamin B12 Serum Folate Urine Color Yellow Urine Appearance Clear Urine pH 6.0 Ur Specific Cruger 1.011 Urine Protein 3+ H Urine Glucose (UA) Trace Urine Ketones Negative Urine Blood 1+ H Urine Nitrite Negative Urine Bilirubin Negative Urine Urobilinogen 0.2 Ur Leukocyte Esterase Negative Urine WBC (Auto) 3 Urine RBC (Auto) 40 Urine Casts (Auto) 0 U Epithel Cells (Auto) 3 Urine Bacteria (Auto) 2 Ur Random Creatinine U Random Total Protein Protein/Creatinin Ratio Stool Occult Blood Double Strand DNA Ab COVID-19 (ORBERTO) 02/08/20 02/08/20 02/08/20 06:13 06:13 06:13 WBC 6.9 RBC 2.96 L Hgb 8.0 L Hct 24.7 L MCV 83.6 MCH 27.1 MCHC 32.4 RDW 15.0 Plt Count 256 MPV 7.6 Absolute Neuts (auto) Neutrophils % Lymphocytes % Monocytes % Eosinophils % Basophils % Nucleated RBC % Retic Count 1.28 PT with INR INR Sodium 142 Potassium 5.2 H Chloride 117 H Carbon Dioxide 17 L Anion Gap 9 BUN 54.1 H Creatinine 2.9 H Est GFR (CKD-EPI)AfAm 26.42 Est GFR (CKD-EPI)NonAf 22.80 POC Glucometer Random Glucose 111 H Hemoglobin A1c % 6.1 Calcium 8.4 L Phosphorus 5.8 H Magnesium 2.2 Iron 38 L TIBC 292 Iron Saturation 13 L Unsaturated IBC 254 Ferritin 45.4 Total Bilirubin AST ALT Alkaline Phosphatase Creatine Kinase Creatine Kinase Index CK-MB (CK-2) Troponin I B-Natriuretic Peptide Total Protein Albumin Lipase Vitamin B12 234 Serum Folate 8 Urine Color Urine Appearance Urine pH Ur Specific Cruger Urine Protein Urine Glucose (UA) Urine Ketones Urine Blood Urine Nitrite Urine Bilirubin Urine Urobilinogen Ur Leukocyte Esterase Urine WBC (Auto) Urine RBC (Auto) Urine Casts (Auto) U Epithel Cells (Auto) Urine Bacteria (Auto) Ur Random Creatinine U Random Total Protein Protein/Creatinin Ratio Stool Occult Blood Double Strand DNA Ab COVID-19 (ROBERTO) 02/08/20 02/08/20 02/08/20 12:50 18:40 22:19 WBC RBC Hgb Hct MCV MCH MCHC RDW Plt Count MPV Absolute Neuts (auto) Neutrophils % Lymphocytes % Monocytes % Eosinophils % Basophils % Nucleated RBC % Retic Count PT with INR INR Sodium Potassium Chloride Carbon Dioxide Anion Gap BUN Creatinine Est GFR (CKD-EPI)AfAm Est GFR (CKD-EPI)NonAf POC Glucometer 167 Random Glucose Hemoglobin A1c % Calcium Phosphorus Magnesium Iron TIBC Iron Saturation Unsaturated IBC Ferritin Total Bilirubin AST ALT Alkaline Phosphatase Creatine Kinase Creatine Kinase Index CK-MB (CK-2) Troponin I B-Natriuretic Peptide Total Protein Albumin Lipase Vitamin B12 Serum Folate Urine Color Urine Appearance Urine pH Ur Specific Cruger Urine Protein Urine Glucose (UA) Urine Ketones Urine Blood Urine Nitrite Urine Bilirubin Urine Urobilinogen Ur Leukocyte Esterase Urine WBC (Auto) Urine RBC (Auto) Urine Casts (Auto) U Epithel Cells (Auto) Urine Bacteria (Auto) Ur Random Creatinine 21.0 L U Random Total Protein 149.9 H Protein/Creatinin Ratio 7.1 Stool Occult Blood Double Strand DNA Ab COVID-19 (ROBERTO) Not detected 02/09/20 02/09/20 02/09/20 07:10 07:10 07:10 WBC 6.4 RBC 2.90 L Hgb 7.9 L Hct 24.2 L MCV 83.5 MCH 27.2 MCHC 32.5 RDW 15.2 Plt Count 254 MPV 8.0 Absolute Neuts (auto) 4.1 Neutrophils % 65.0 Lymphocytes % 16.4 Monocytes % 7.1 Eosinophils % 10.5 H Basophils % 1.0 Nucleated RBC % 0 Retic Count PT with INR INR Sodium 141 Potassium 5.0 Chloride 114 H Carbon Dioxide 21 Anion Gap 6 L BUN 51.2 H Creatinine 3.0 H Est GFR (CKD-EPI)AfAm 25.36 Est GFR (CKD-EPI)NonAf 21.88 POC Glucometer Random Glucose 88 Hemoglobin A1c % Calcium 7.7 L Phosphorus 5.5 H Magnesium 2.0 Iron TIBC Iron Saturation Unsaturated IBC Ferritin Total Bilirubin 0.4 AST 10 L ALT 11 L Alkaline Phosphatase 128 H Creatine Kinase Creatine Kinase Index CK-MB (CK-2) Troponin I B-Natriuretic Peptide Total Protein 6.2 L Albumin 2.6 L Lipase Vitamin B12 Serum Folate Urine Color Urine Appearance Urine pH Ur Specific Cruger Urine Protein Urine Glucose (UA) Urine Ketones Urine Blood Urine Nitrite Urine Bilirubin Urine Urobilinogen Ur Leukocyte Esterase Urine WBC (Auto) Urine RBC (Auto) Urine Casts (Auto) U Epithel Cells (Auto) Urine Bacteria (Auto) Ur Random Creatinine U Random Total Protein Protein/Creatinin Ratio Stool Occult Blood Double Strand DNA Ab 1 COVID-19 (ROBERTO) 02/09/20 02/09/20 02/10/20 11:18 14:00 06:10 WBC 6.0 RBC 2.80 L Hgb 7.5 L Hct 23.1 L MCV 82.5 MCH 26.9 MCHC 32.6 RDW 15.3 Plt Count 249 MPV 7.6 Absolute Neuts (auto) 3.5 Neutrophils % 58.8 Lymphocytes % 20.2 D Monocytes % 8.0 Eosinophils % 12.4 H Basophils % 0.6 Nucleated RBC % 0 Retic Count PT with INR INR Sodium Potassium Chloride Carbon Dioxide Anion Gap BUN Creatinine Est GFR (CKD-EPI)AfAm Est GFR (CKD-EPI)NonAf POC Glucometer 128 Random Glucose Hemoglobin A1c % Calcium Phosphorus Magnesium Iron TIBC Iron Saturation Unsaturated IBC Ferritin Total Bilirubin AST ALT Alkaline Phosphatase Creatine Kinase Creatine Kinase Index CK-MB (CK-2) Troponin I B-Natriuretic Peptide Total Protein Albumin Lipase Vitamin B12 Serum Folate Urine Color Urine Appearance Urine pH Ur Specific Cruger Urine Protein Urine Glucose (UA) Urine Ketones Urine Blood Urine Nitrite Urine Bilirubin Urine Urobilinogen Ur Leukocyte Esterase Urine WBC (Auto) Urine RBC (Auto) Urine Casts (Auto) U Epithel Cells (Auto) Urine Bacteria (Auto) Ur Random Creatinine U Random Total Protein Protein/Creatinin Ratio Stool Occult Blood Negative Double Strand DNA Ab COVID-19 (ROBERTO) 02/10/20 02/11/20 02/11/20 06:10 00:30 05:42 WBC RBC Hgb Hct MCV MCH MCHC RDW Plt Count MPV Absolute Neuts (auto) Neutrophils % Lymphocytes % Monocytes % Eosinophils % Basophils % Nucleated RBC % Retic Count PT with INR INR Sodium 144 139 141 Potassium 5.1 4.7 4.9 Chloride 115 H 109 H 110 H Carbon Dioxide 19 L 23 20 L Anion Gap 10 7 L 11 BUN 57.4 H 59.4 H 57.6 H Creatinine 3.1 H 3.2 H 3.1 H Est GFR (CKD-EPI)AfAm 24.38 23.46 24.38 Est GFR (CKD-EPI)NonAf 21.03 20.24 21.03 POC Glucometer Random Glucose 94 129 H 105 Hemoglobin A1c % Calcium 7.9 L 8.0 L 8.3 L Phosphorus 4.7 4.6 Magnesium 2.1 2.1 Iron TIBC Iron Saturation Unsaturated IBC Ferritin Total Bilirubin 0.3 AST 10 L ALT 13 Alkaline Phosphatase 130 H Creatine Kinase Creatine Kinase Index CK-MB (CK-2) Troponin I B-Natriuretic Peptide Total Protein 6.6 Albumin 2.8 L Lipase Vitamin B12 Serum Folate Urine Color Urine Appearance Urine pH Ur Specific Cruger Urine Protein Urine Glucose (UA) Urine Ketones Urine Blood Urine Nitrite Urine Bilirubin Urine Urobilinogen Ur Leukocyte Esterase Urine WBC (Auto) Urine RBC (Auto) Urine Casts (Auto) U Epithel Cells (Auto) Urine Bacteria (Auto) Ur Random Creatinine U Random Total Protein Protein/Creatinin Ratio Stool Occult Blood Double Strand DNA Ab COVID-19 (ROBERTO) 02/11/20 02/11/20 02/12/20 17:05 22:18 06:19 WBC RBC Hgb Hct MCV MCH MCHC RDW Plt Count MPV Absolute Neuts (auto) Neutrophils % Lymphocytes % Monocytes % Eosinophils % Basophils % Nucleated RBC % Retic Count PT with INR INR Sodium Potassium Chloride Carbon Dioxide Anion Gap BUN Creatinine Est GFR (CKD-EPI)AfAm Est GFR (CKD-EPI)NonAf POC Glucometer 97 163 101 Random Glucose Hemoglobin A1c % Calcium Phosphorus Magnesium Iron TIBC Iron Saturation Unsaturated IBC Ferritin Total Bilirubin AST ALT Alkaline Phosphatase Creatine Kinase Creatine Kinase Index CK-MB (CK-2) Troponin I B-Natriuretic Peptide Total Protein Albumin Lipase Vitamin B12 Serum Folate Urine Color Urine Appearance Urine pH Ur Specific Cruger Urine Protein Urine Glucose (UA) Urine Ketones Urine Blood Urine Nitrite Urine Bilirubin Urine Urobilinogen Ur Leukocyte Esterase Urine WBC (Auto) Urine RBC (Auto) Urine Casts (Auto) U Epithel Cells (Auto) Urine Bacteria (Auto) Ur Random Creatinine U Random Total Protein Protein/Creatinin Ratio Stool Occult Blood Double Strand DNA Ab COVID-19 (ROBERTO) 02/12/20 02/12/20 07:20 07:20 WBC 6.5 RBC 3.14 L Hgb 8.4 L Hct 26.0 L MCV 82.8 MCH 26.8 MCHC 32.3 RDW 15.0 Plt Count 273 MPV 7.4 L Absolute Neuts (auto) Neutrophils % Lymphocytes % Monocytes % Eosinophils % Basophils % Nucleated RBC % Retic Count PT with INR INR Sodium 138 Potassium 4.6 Chloride 109 H Carbon Dioxide 22 Anion Gap 7 L BUN 61.6 H Creatinine 3.1 H Est GFR (CKD-EPI)AfAm 24.38 Est GFR (CKD-EPI)NonAf 21.03 POC Glucometer Random Glucose 102 Hemoglobin A1c % Calcium 8.4 L Phosphorus Magnesium Iron TIBC Iron Saturation Unsaturated IBC Ferritin Total Bilirubin AST ALT Alkaline Phosphatase Creatine Kinase Creatine Kinase Index CK-MB (CK-2) Troponin I B-Natriuretic Peptide Total Protein Albumin Lipase Vitamin B12 Serum Folate Urine Color Urine Appearance Urine pH Ur Specific Cruger Urine Protein Urine Glucose (UA) Urine Ketones Urine Blood Urine Nitrite Urine Bilirubin Urine Urobilinogen Ur Leukocyte Esterase Urine WBC (Auto) Urine RBC (Auto) Urine Casts (Auto) U Epithel Cells (Auto) Urine Bacteria (Auto) Ur Random Creatinine U Random Total Protein Protein/Creatinin Ratio Stool Occult Blood Double Strand DNA Ab COVID-19 (ROBERTO) Date of Admission:02/07/20 Date of Discharge: 02/12/20 Minutes to complete discharge: 40 Discharge Summary Problems reviewed: Yes Reason For Visit: CONGESTIVE HEART FAILURE, ANEMIA Current Active Problems Abnormal laboratory test result (Acute) Hospital Course: 59 year old male with CKD 3, DM 2, HTN, Chronic Systolic CHF, BPH, HLD, referred to ED by his Demand Planner for Hyperkalemia, found to be grossly fluid overloaded, requiring IV Lasix diuresis. He was adewuately diuresed and evaluated by Cardio who recommended discharge on Torsemide with outpatient Cardiology follow up.. 1. 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 2. Hyperkalemia ?sec to CKD3 - resolved. Nephrology to follow. 3. Normocytic Anemia, multifactorial - sec to Iron deficiency (Iron Sat 13%), B12 deficiency and CKD3/Chronic disease Iron and B12 supplementation started. No evidence of acute blood loss. FOBT negative. Further JULIENNE investigation by GI as outpatient. 4. CKD 3 with Nephrotic range proteinuria - Creat appears to be at baseline. Nephrology following - may require outpatient Renal Bx. for nephrology follow up as out-patient. 5. DM 2 - resume oral anti-diabetic medications on discharge. 6. HTN - Continue Metoprolol, Hydralazine, Norvasc. 7. CAD (non-obstructive s/p Cardiac Cath 03/13) - continue Aspirin, Metoprolol, Statin. Medically stable and optimized for discharge. Condition: Good - Instructions Diet, Activity, Other Instructions: Biopsy can be considered as an outpatient as pt can also have FSGS out pt colonoscopy for anemia Referrals: Viviane Schwartz MD [Primary Care Provider] - Ricarda Nolan MD [Staff Physician] - 1 Week (JULIENNE investigation) Brady Orellana MD [Staff Physician] - 1 Week (Follow up after hospitalization for CHF) Rufino Rudolph MD [Staff Physician] - Disposition: HOME - Home Medications Comprehensive Discharge Medication List: Ambulatory Orders Amlodipine Besylate [Norvasc -] 10 mg PO DAILY tablet 02/21/19 Aspirin [ASA -] 81 mg PO DAILY tab.chew 02/21/19 Glipizide [Glipizide ER] 10 mg PO DAILY #60 tab.er.24 02/21/19 Metoprolol Succinate [Toprol XL -] 50 mg PO BID #60 tab.sr.24h 09/19/19 Cyanocobalamin [Vitamin B12 -] 1,000 mcg PO DAILY 30 Days #30 tablet 02/12/20 Docusate Sodium [Colace -] 100 mg PO BID PRN 30 Days #60 capsule 02/12/20 Ferrous Sulfate [Feosol] 325 mg PO BID 30 Days #60 ud 02/12/20 Torsemide [Demadex -] 80 mg PO BID 30 Days #60 tablet 02/12/20 hydrALAZINE HCL [Apresoline -] 75 mg PO BID tablet 02/12/20 Problem List - Problems (1) Acute on chronic diastolic (congestive) heart failure Code(s): I50.33 - ACUTE ON CHRONIC DIASTOLIC (CONGESTIVE) HEART FAILURE This patient is new to me today: No Emergency Visit: Yes ED Registration Date: 02/07/20 Care time: The patient presented to the Emergency Department on the above date and was hospitalized for further evaluation of their emergent condition. Critical Care patient: No - Discharge Referral Referred to [facility] No Quality Measures-Exclusions - Heart Failure Reason LVF assessment not done: Prior echocardiogram done Reason JORGE/ARB not ordered during hospital stay: LVEF > 40% JORGE/ARB not ordered (LVEF<40%) at d/c: LVEF > 40%
--- NOTE | 2020-02-12 12:54 | PN ---
Progress Note, Physician Chief Complaint: HF History of Present Illness: denies sob, orthopnea. walked a lot in [place] a lot yest and this am no cp, palp, swelling - Current Medication List Current Medications: Active Medications Amlodipine Besylate (Norvasc -) 10 mg PO DAILY [facility] Last Admin: 02/12/20 09:34 Dose: 10 mg Documented by: Cyanocobalamin (Vitamin B12 -) 1,000 mcg PO DAILY [facility] Last Admin: 02/12/20 09:34 Dose: 1,000 mcg Documented by: Docusate Sodium (Colace -) 100 mg PO BID PRN PRN Reason: CONSTIPATION Ferrous Sulfate (Feosol -) 325 mg PO BID [facility] Last Admin: 02/12/20 09:34 Dose: 325 mg Documented by: Furosemide (Lasix Injection -) 80 mg IVPUSH BID@0600,1400 [facility] Last Admin: 02/12/20 06:17 Dose: 80 mg Documented by: Heparin Sodium (Porcine) (Heparin -) 5,000 unit SQ BID [facility] Last Admin: 02/12/20 09:33 Dose: 5,000 unit Documented by: Hydralazine HCl (Apresoline -) 75 mg PO BID [facility] Last Admin: 02/12/20 09:33 Dose: 75 mg Documented by: Insulin Aspart (Novolog Vial Sliding Scale -) 1 vial SQ [facility]; Protocol Last Admin: 02/12/20 11:40 Dose: 2 units Documented by: Metoprolol Succinate (Toprol Xl -) 50 mg PO BID [facility] Last Admin: 02/12/20 09:34 Dose: 50 mg Documented by: - Objective Vital Signs: Vital Signs Temperature 98.2 F 02/12/20 09:30 Pulse Rate 65 02/12/20 09:30 Respiratory Rate 20 02/12/20 09:30 Blood Pressure 149/89 02/12/20 09:30 O2 Sat by Pulse Oximetry (%) 100 02/12/20 09:00 Constitutional: Yes: Well Nourished, No Distress, Calm, Obese Cardiovascular: Yes: Regular Rate and Rhythm, S1, S2. No: Murmur Respiratory: Yes: Regular. 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 wt down to 193, was 187-190 after hosp discharge 10/13 office visits, maintained on lasix 120 bid. - same lasix today--suspect he is nearly euvolemic, anticipate discharge tomorrow. - plan to discharge on torsemide for better bioavailability (80 bid dose) - monitor daily weights, Cr, lytes hyperkalemia, JASWINDER on CKD: - received calcium gluconate, lasix, k improved - monitor Cr with diuresis - baseline creat 2.8-3.4; renal fxn stable here - renal following CAD: - nonobstructive on cath 02/2018 - continue statin, aspirin HTN: - continue amlodipine, hydralazine (was on 75 mg BID), metoprolol - bp moderately elevated--observe trend with diuresis HLD: - cont statin
--- NOTE | 2020-02-12 13:04 | PN ---
Progress Note (short form) - Note Progress Note: 1. Acute heart failure/volume overload 2. JASWINDER/CKD 3. Nephrotic range proteinuria with + PK 4. Hypertension 5. DM type 2 6. Hyperlipidemia 7. Hyperkalemia Active Medications Amlodipine Besylate (Norvasc -) 10 mg PO DAILY [facility] Last Admin: 02/12/20 09:34 Dose: 10 mg Documented by: Cyanocobalamin (Vitamin B12 -) 1,000 mcg PO DAILY [facility] Last Admin: 02/12/20 09:34 Dose: 1,000 mcg Documented by: Docusate Sodium (Colace -) 100 mg PO BID PRN PRN Reason: CONSTIPATION Ferrous Sulfate (Feosol -) 325 mg PO BID [facility] Last Admin: 02/12/20 09:34 Dose: 325 mg Documented by: Heparin Sodium (Porcine) (Heparin -) 5,000 unit SQ BID [facility] Last Admin: 02/12/20 09:33 Dose: 5,000 unit Documented by: Hydralazine HCl (Apresoline -) 75 mg PO BID [facility] Last Admin: 02/12/20 09:33 Dose: 75 mg Documented by: Insulin Aspart (Novolog Vial Sliding Scale -) 1 vial SQ [facility]; Protocol Last Admin: 02/12/20 11:40 Dose: 2 units Documented by: Metoprolol Succinate (Toprol Xl -) 50 mg PO BID [facility] Last Admin: 02/12/20 09:34 Dose: 50 mg Documented by: Torsemide (Demadex -) 80 mg PO BIDLASIX [facility] Last Vital Signs Temp Pulse Resp BP Pulse Ox 98.2 F 65 20 149/89 100 02/12/20 09:30 02/12/20 09:30 02/12/20 09:30 02/12/20 09:30 02/12/20 09:00 alert in nad Lungs clear Heart reg Abd soft nontender Ext no apparent edema SCDs are on CBC, BMP 02/12/20 07:20 02/12/20 07:20 CBC, BMP 02/10/20 06:10 02/11/20 05:42 CBC, BMP 02/10/20 06:10 02/10/20 06:10 CKD stable renal function CHF Plan- agree with d/c plans
[2020-02-12] MEDS ORDERED: TORSEMIDE 20 MG TABLET (FP) PO SCH (14:00)
[2020-02-12 15:16] VITALS: BP 144/74; PULSE 68; TEMP 98.1
--- NOTE | 2020-02-16 15:22 | PDOC ---
Documentation entered by Marli Damico SCRIBE, acting as scribe for Kayleigh Mcguire MD. Kayleigh Mcguire MD: This documentation has been prepared by the anitaibe, Marli Damico SCRIBE, under my direction and personally reviewed by me in its entirety. I confirm that the documentation accurately reflects all work, treatment, procedures, and medical decision making performed by me. Attending Attestation - Resident Resident Name: Topher,Jose - ED Attending Attestation I have performed the following: I have examined & evaluated the patient, The case was reviewed & discussed with the resident, I agree w/resident's findings & plan, Exceptions are as noted - HPI HPI: 02/07/20 17:23 Patient is a 59 year old male with a significant past medical history of CKD, DM2, HTN and CHF (several admissions over the past year for CHF exacerbation, on Lasix), who presents to the ED, sent by charger operator on 02/01/20 but came today, JASWINDER, hyperkalemia, with peaked T-waves. x1 month of SOB along with dysnea on exertion and bilateral edema to feet. Also mild diffuse low back pain which is not out of the ordinary for him. Labs done as an outpatient on 01/31/2020 showed Creatinine 3.53, Potassium 6.1. EKG showed peaked T waves. - Physicial Exam PE: 02/07/20 18:37 GENERAL: initially sleeping but easily arousable, A/Ox4, no distress, answers questions appropriately, primarily Bengali speaking HEENT: PERRLA, EOMI, moist mucous membranes NECK/BACK: no midline ttp, no spinal stepoff or deformity, no hematoma, full ROM, neck supple CARDIOVASCULAR: regular rate/rhythm, no MGR, strong peripheral pulses, capillary refill <2 seconds, extremities wwp, 3+ pitting edema BLE LUNGS/RESPIRATORY: mildly tachypneic, bilateral basilar crackles, no focal area of decreased breath sounds GI/ABDOMEN: symmetric [id number], normoactive BS, soft, no ttp, no midline pulsatile masses : no CVA tenderness MSK/EXTREMITIES: no muscle atrophy, no acute deformity SKIN: warm and dry, no pallor, no jaundice, no rash, no pathologic-appearing bruising, no skin breakdown, no cuts, no lesions NEUROLOGICAL: GCS 15, CN II-XII grossly intact, 5/5 strength proximally and distally, no facial droop - Medical Decision Making 02/07/20 18:00 59YOM with CHF who p/w SOB, DELEON, and BLE swelling same as their prior CHF exacerbation. Initial Vital Signs Temp Pulse Resp BP Pulse Ox 97.8 F 74 16 154/70 99 02/07/20 16:27 02/07/20 16:27 02/07/20 16:27 02/07/20 16:27 02/07/20 16:27 DDX IBNLT: Most likely CHF exacerbation, possible pulmonary edema, anemia, ACS, possible COPD component, PNA/bronchitis, unlikely PE, etc. W/U ordered: Labs as noted below, EKG CXR. Patient will likely need admission for CHF exacerbation. EKG: Reviewed; results as noted in ECG Review section. CXR: Pulmonary vascular congestion, cardiomegaly. Laboratory Tests 02/07/20 02/07/20 02/07/20 16:43 16:43 16:43 WBC 5.9 RBC 2.71 L Hgb 7.4 L Hct 22.9 L D MCV 84.4 MCH 27.2 MCHC 32.2 RDW 15.2 Plt Count 237 D MPV 7.9 Absolute Neuts (auto) 4.1 Neutrophils % 69.7 Lymphocytes % 14.7 D Monocytes % 7.5 Eosinophils % 7.3 H Basophils % 0.8 Nucleated RBC % 0 PT with INR 12.30 INR 1.04 Sodium Potassium Chloride Carbon Dioxide Anion Gap BUN Creatinine Est GFR (CKD-EPI)AfAm Est GFR (CKD-EPI)NonAf Random Glucose Calcium Magnesium Total Bilirubin AST ALT Alkaline Phosphatase Creatine Kinase Troponin I B-Natriuretic Peptide Total Protein Albumin Lipase Urine Color Yellow Urine Appearance Clear Urine pH 5.5 Ur Specific [place] 1.014 Urine Protein 3+ H Urine Glucose (UA) Trace Urine Ketones Negative Urine Blood 1+ H Urine Nitrite Negative Urine Bilirubin Negative Urine Urobilinogen 1.0 Ur Leukocyte Esterase Negative Urine WBC (Auto) 10 Urine RBC (Auto) 44 Urine Casts (Auto) 1 U Epithel Cells (Auto) 6 Urine Bacteria (Auto) 5 02/07/20 16:43 WBC RBC Hgb Hct MCV MCH MCHC RDW Plt Count MPV Absolute Neuts (auto) Neutrophils % Lymphocytes % Monocytes % Eosinophils % Basophils % Nucleated RBC % PT with INR INR Sodium 140 Potassium 5.3 H Chloride 115 H Carbon Dioxide 17 L Anion Gap 8 BUN 53.4 H Creatinine 3.1 H Est GFR (CKD-EPI)AfAm 24.38 Est GFR (CKD-EPI)NonAf 21.03 Random Glucose 114 H Calcium 7.8 L Magnesium 2.2 Total Bilirubin 0.3 AST 16 ALT 15 Alkaline Phosphatase 137 H Creatine Kinase 506 H Troponin I < 0.02 B-Natriuretic Peptide 11744.9 H Total Protein 6.5 Albumin 2.8 L Lipase 64 L Urine Color Urine Appearance Urine pH Ur Specific [place] Urine Protein Urine Glucose (UA) Urine Ketones Urine Blood Urine Nitrite Urine Bilirubin Urine Urobilinogen Ur Leukocyte Esterase Urine WBC (Auto) Urine RBC (Auto) Urine Casts (Auto) U Epithel Cells (Auto) Urine Bacteria (Auto) The Pt is unsafe for discharge at this time. They require further hospital observation, workup, and treatment for CHF exacerbation and 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 Pt needs IV meds 2/2 likely bowel edema as PO medications likely less effective. Microblog sent to [facility] for admission by Dr. Obando. Discharge - Discharge Information Problems reviewed: Yes Clinical Impression/Diagnosis: Abnormal laboratory test result Condition: Guarded - Admission Yes - Follow up/Referral - Patient Discharge Instructions - Post Discharge Activity
== END 2020-02-12 15:19 | disposition home or self-care (01) | DRG 194 ==
LOC: JER 16:09 → JERBED 18:54 → J4S 02-08 17:41
PROVIDERS: ADMIT Internal Medicine
DX: I13.0 Hypertensive heart and chronic kidney disease with heart failure and stage 1 through stage 4 chronic kidney disease, or unspecified chronic kidney disease (principal); E11.22 Type 2 diabetes mellitus with diabetic chronic kidney disease; N18.3 Chronic kidney disease, stage 3 (moderate); I50.43 Acute on chronic combined systolic (congestive) and diastolic (congestive) heart failure; N17.9 Acute kidney failure, unspecified; D63.1 Anemia in chronic kidney disease; K59.09 Other constipation; N40.0 Benign prostatic hyperplasia without lower urinary tract symptoms; I25.10 Atherosclerotic heart disease of native coronary artery without angina pectoris; E78.5 Hyperlipidemia, unspecified; E87.5 Hyperkalemia; R31.9 Hematuria, unspecified; D50.0 Iron deficiency anemia secondary to blood loss (chronic); E11.42 Type 2 diabetes mellitus with diabetic polyneuropathy; Z95.5 Presence of coronary angioplasty implant and graft; Z89.422 Acquired absence of other left toe(s)
CPT/HCPCS: 36415; 71045-TC-FY; 80048; 80053; 81003; 82272; 82550; 82553; 82565; 82607; 82728; 82746; 82962; 83036; 83540; 83550; 83690; 83735; 83880; 84100; 84156; 84484; 85025; 85027; 85044; 85610; 86038; 86225; 87086; 90732; 93005; 93010; 93306-TC; 99285-25; G0009; J1644; J1756; U0003